=== PATIENT | female | born 1960 | race Caucasian/White ===

== ENCOUNTER 2018-11-15 18:43 | Emergency (ER) | payer OTHER, SELFPAY ==
[2018-09-22 11:01] VITALS: BMI 26.2
[2018-11-15 18:44] VITALS: BP 154/89; PULSE 89; RESP 18; TEMP 36.2; O2SAT 99; BMI 26.7
--- NOTE | 2018-11-15 18:50 | ED.RN ---
RN CALLED FOR EKG, PULLED OLD EKGS FOR
--- NOTE | 2018-11-15 18:57 | EKG12_ITS ---
Test Reason : REPEAT Blood Pressure : / mmHG Vent. Rate : 066 BPM Atrial Rate : 066 BPM P-R Int : 144 ms QRS Dur : 082 ms QT Int : 414 ms P-R-T Axes : 070 086 070 degrees QTc Int : 434 ms Normal sinus rhythm Normal ECG Confirmed by CANDIE SARGENT ([id number]), editorial cartoonist LOU HERRON ([id number]) on 11/19/2018 11:14:49 AM Referred By: SWAPNA Confirmed By:CANDIE SARGENT
--- NOTE | 2018-11-15 19:00 | RAD_ITS ---
STUDY: X-RAY CHEST REASON FOR EXAM: Female, 58 years old. Chest pain TECHNIQUE: Frontal views of the chest COMPARISON: X-Ray Chest every 2016 FINDINGS: The lungs are clear. There are no pleural effusions. There is no pneumothorax. The heart is normal in size. The visualized osseous structures are within normal limits. RAD/Chest 1 View (Portable) IMPRESSION: No acute thoracic pathology. Electronically Signed: Gregory Campos, at 19:56 EDT Tel , Service support ,
[2018-11-15 19:08] VITALS: O2SAT 97
[2018-11-15] MEDS: Aspirin 81 MG TAB.CHEW 324 MG PO (19:08)
[2018-11-15] MEDS: 0.9% Normal Saline 1,000 ML 150 ML IV (19:08)
[2018-11-15 19:21] LABS: Anion Gap 3 (5-15); BUN 14 mg/dL (7-18); BUN/Creat Ratio 8.4 RATIO (10-20); Calcium,Total 8.8 mg/dL (8.5-10.1); Chloride 106 mmol/L (98-107); Creatinine, Serum 1.66 mg/dL (0.55-1.02); EST Glomerular Filtration Rate 34 mL/min (>60); Est Glom Filt Rate - Afr Amer 41 mL/min (>60); Estimated Creatinine Clearance 32.29 ml/min; Glucose 90 mg/dL (74-106); Potassium 4.1 mmol/L (3.5-5.1); Sodium Level 140 mmol/L (136-145)
[2018-11-15 19:37] LABS: Absolute Lymphocyte Count 2.71 X10^3/ul (0.83-4.51); Absolute Neutrophil Count 5.8 X10^3/uL (2.0-7.7); Basophil# 0.02 X10^3/uL; Basophil% 0.2 % (0-1); Eosinophil# 0.17 X10^3/uL; Eosinophils% 1.8 % (0-5); Hematocrit 41.5 % (37-47); Lymphocyte # 2.71 X10^3/ul (4.0); Lymphocyte % 28.4 % (19-41); Mean Corp Hgb Conc 33.7 g/gl (32-36); Mean Corpuscular Hgb 31.2 pg (27.0-32.0); Mean Corpuscular Volume 92.4 fL (81-99); Monocyte# 0.83 X10^3/uL; Monocyte% 8.7 % (0-10); Neutrophil # 5.81 X10^3/uL (2.7-7.7); Neutrophil % 60.8 % (47-70); Platelet Count 270 K/mm3 (150-450); RBC Distribution Width CV 13.3 % (11.6-14.6); RBC Distribution Width SD 44.9 fl (35.1-43.9); Red Blood Count 4.49 M/mm3 (4.2-5.4); White Blood Count 9.6 K/mm3 (4.4-11.0)
[2018-11-15 19:38] LABS: POSITIVE COUNT NO; POSITIVE DIFFERENTIAL NO; POSITIVE MORPHOLOGY NO
[2018-11-15 19:45] LABS: D-Dimer Quantitative (DVT/PE) < 0.27 FEU/ug/m (0.27-0.49)
[2018-11-15 20:09] VITALS: BP 129/72; PULSE 71; RESP 14; O2SAT 96
--- NOTE | 2018-11-15 21:00 | EKG12_ITS ---
Test Reason : CP Blood Pressure : / mmHG Vent. Rate : 086 BPM Atrial Rate : 086 BPM P-R Int : 130 ms QRS Dur : 086 ms QT Int : 368 ms P-R-T Axes : 075 089 072 degrees QTc Int : 440 ms Normal sinus rhythm Normal ECG Confirmed by CANDIE SARGENT ([id number]), features editor LOU HERRON ([id number]) on 11/19/2018 11:15:02 AM Referred By: SWAPNA/JUAQUIN Confirmed By:CANDIE SARGENT
[2018-11-15 21:18] VITALS: BP 131/76; PULSE 63; RESP 16; O2SAT 96
--- NOTE | 2018-11-15 22:44 | ED.VISSUMM ---
- ER Visit Summary Date of Service: 11/15/18 Chief Complaint: Chest pain History of Present Illness: The patient is a 58 F with upper chest pain that started yesterday. She points to the upper sternal area and up into her neck. She describes as a heaviness or squeezing sensation. She does feel slightly short of breath. Past history is significant for COPD, mitral valve prolapse, fibromyalgia, melanoma, reflux disease. Physical Examination: Vital signs significant for blood pressure 154/89, otherwise unremarkable. Patient sitting upright in bed no acute distress. Heart is regular rate and rhythm. Lung sounds are clear. Chest wall is nontender. Abdomen is soft nontender. Lower exam examination was no calf tenderness or edema. Test Results: Portable chest x-ray is unremarkable. EKG is sinus 86 with no acute ischemia. CBC and chemistry studies significant only for a creatinine of 1.66. Last laboratory work available for comparison is from 2 years ago at which time her creatinine was normal. Troponin is less than 0.015. D-dimer is less than 0.27. Emergency Department Course and Treatment: Patient was given aspirin on arrival. On repeat evaluation she is resting comfortably. I recommended hospitalization for cycling of cardiac enzymes and possible stress test. She declines this. She did agree to stay for a 2-hour repeat troponin and EKG. These tests are unremarkable. On repeat evaluation patient is resting comfortably. Test results were discussed with her. She will return immediately if symptoms worsen or any other concerns arise. Treatment Plan: [] Disposition: Discharge Impression: Chest pain Renal insufficiency This note was generated with [employer] dictation software. It may contain incorrect words, spelling, and punctuation that were not noted in review of the chart prior to signing ED Disposition - Plan for ED Patient: Disposition: Home or Assisted Living Instructions: ED Chest Pain Atypical Unkn Cause Referrals: Edyta Nichole DO [Primary Care Provider] - As soon as possible
[2018-11-15 22:57] VITALS: BP 125/70; PULSE 62; RESP 16; O2SAT 96
--- NOTE | 2018-11-15 22:58 | ED.RN ---
REVIEWED D/C INSTRUCTIONS, FOLLOW UP CARE, AND S/S THAT WOULD WARRANT A RETURN TO THE ED WITH PT. PT VERBALIZED AN UNDERSTANDING AND DENIES FURTHER QUESTIONS FOR THIS RN. PT SKIN P/W/D, RESP EVEN AND UNLABORED, PT A&O X 3, NO DISTRESS NOTED. PT AMBULATED OUT OF ED, GAIT STEADY.
== END 2018-11-15 23:00 | disposition home or self-care (01) ==
PROVIDERS: Emergency Provider Emergency Medicine; Family Provider Family Medicine; PCP Family Medicine
DX: R07.9 Chest pain, unspecified (principal); N28.9 Disorder of kidney and ureter, unspecified; J44.9 Chronic obstructive pulmonary disease, unspecified; K21.9 Gastro-esophageal reflux disease without esophagitis; M79.7 Fibromyalgia; Z72.0 Tobacco use; Z85.820 Personal history of malignant melanoma of skin
CPT/HCPCS: 71045; 80048; 84484; 85025; 85379; 93005; 96360; 96361; 99285; J7030; A4216

== ENCOUNTER → 2018-11-25 10:58 | Outpatient (CLI) | payer OTHER, SELFPAY ==
[2018-11-15 18:44] VITALS: BMI 26.7
[2018-11-25 11:03] LABS: Mucous, Urine 0 SEEN /hpf (<or=2+); Red Blood Cells-Urine 0 SEEN /hpf (0-5); White Blood Cells 0 SEEN /hpf (0-5)
[2018-11-25 12:10] LABS: Color, Urine Yellow (Yellow); Glucose, Dipstick Normal (Normal); Ketone-Dipstick 5 mg/dl (Negative); Leukocyte Esterase-Dipstick Negative /ul (Negative); Nitrite-Dipstick Negative (Negative); Occult Blood-Urine Negative /ul (Negative); Protein-Dipstick Negative (Negative); Specific Gravity, Urine 1.005 (1.002-1.030); Urine Bilirubin Dipstick Negative (Negative); Urine Clarity Clear (Clear); Urine Urobilinogen Normal (Normal)
[2018-11-25 12:16] LABS: Bacteria RARE /hpf (None Seen); Squamous Epithelial Cells - UA 0-5 SEEN /hpf (5-10)
[2018-11-25 16:23] LABS: Anion Gap 7 (5-15); BUN 10 mg/dL (7-18); BUN/Creat Ratio 13.5 RATIO (10-20); Calcium,Total 8.8 mg/dL (8.5-10.1); Chloride 106 mmol/L (98-107); Creatinine, Serum 0.74 mg/dL (0.55-1.02); EST Glomerular Filtration Rate 86 mL/min (>60); Est Glom Filt Rate - Afr Amer 104 mL/min (>60); Glucose 75 mg/dL (74-106); Potassium 4.4 mmol/L (3.5-5.1); Sodium Level 140 mmol/L (136-145)
== END ==
PROVIDERS: Family Provider Family Medicine; PCP Family Medicine; Visit Provider Family Medicine
DX: N17.9 Acute kidney failure, unspecified (principal)
CPT/HCPCS: 36415; 80048; 81001; 87086; 87088

== ENCOUNTER → 2018-11-26 06:50 | Outpatient (CLI) | payer OTHER, SELFPAY ==
[2018-09-22 11:01] VITALS: BMI 26.2
[2018-11-15 18:44] VITALS: BMI 26.7
--- NOTE | 2018-11-26 07:36 | CT_ITS ---
STUDY: LOW DOSE CT LUNG CANCER SCREENING REASON FOR EXAM: Female, 58 years old. Screening RADIATION DOSAGE (If Supplied By Facility): CTDIvol = ( 1.70 ) mGy, DLP = ( 64.86 ) mGycm TECHNIQUE: No contrast was administered. Low dose technique was utilized (average mAS-38 and kVp 120). 1.25 mm axial source images with a slice interval of 1.25-mm were reconstructed in lung windows. 2.5 mm axial source images with a slice interval of 2.5-mm were reconstructed in lung windows. 5.0 mm axial source images with a slice interval of 5.0-mm were reconstructed in soft tissue windows. Nodule measured using lung windows on PACS and/or independent workstation with automated measurement of minimum and maximum diameter. Nodule measurement reported as average diameter rounded to the nearest whole number. Growth is defined as an increase ins size of greater than 1.5 mm. COMPARISON: None. NODULES: Total lung nodules (excluding granulomas): 0 Emphysema: Mild Endobronchial lesion: None Aorta: Normal Coronary arteries: Normal Heart: Normal Pulmonary artery: Normal Mediastinal nodes: Normal Other chest and abdominal findings: None CT/Low Dose CT Lung Screening IMPRESSION: No significant pulmonary nodules. LRADS 1. Mild emphysema. IMPORTANT NOTES FOR USE: ACR Lung-RADS Version 1.0 Assessment Categories Release Date: November 07, 2013 Category: Coded 0-4 bases on nodule(s) with highest degree of suspicion. Negative screen is defined as categories 1 and 2; a positive screen is defined as categories 3 and 4. Category 3 and 4A nodules that are unchanged on interval CT should be coded as category 2, and individuals returned to screening in 12 months. Category 4X: Category 3 or 4 nodules with additional imaging findings that increase the suspicion of lung cancer, such as spiculation, GGN that doubles in size in 1 year, enlarged lymph notes, etc. Category Modifiers: S (significant finding unrelated to lung cancer) and C (prior history of treated lung cancer) may be added to the 0-4 Lung-RADS Electronically Signed: Gregory Campos, at 20:55 EDT Tel , Service support ,
--- NOTE | 2018-11-26 09:27 | PFTCOMP ---
COMPLETE PULMONARY FUNCTION TEST INTERPRETATION Brief HPI: Patient is a 58 year old female, currently under the care of myself, who presents to [facility] for complete pulmonary function tests secondary to diagnosis of tobacco abuse. Respiratory therapist reports good effort and reproducible results. Interpretation: Forced expiration spirometry shows a severe large airways obstructive ventilatory defect with an FEV1 of 46% predicted. There is a significant bronchodilator response in FVC and FEV1 by strict ATS criteria. Spirograms are of good quality and plateau slowly, indicating slowly emptying areas of the lungs. The respiratory flow volume loop shows decreased expiratory flow rates at all lung volumes consistent with airway obstruction. Lung volumes by body plethysmography show an elevated total lung capacity at 6.72 L, 137% predicted. FRC and RV are elevated out of proportion. Lung volume measurements are consistent with hyperinflation and air-trapping. Diffusion capacity by carbon monoxide is decreased at 57% predicted. The airway resistance is elevated. Compared to previous pulmonary function tests from 10/21/2016, there is been significant worsening in FEV1 by 26% with resultant air trapping and worsening hyperinflation. Impression: Partially reversible severe large airways obstructive ventilatory defect resulting in air trapping with hyperinflation, and a pattern consistent with COPD/asthma overlap syndrome.
== END ==
PROVIDERS: Family Provider Family Medicine; PCP Family Medicine; Referring Provider Internal Medicine Critical Care Medicine; Visit Provider Internal Medicine Critical Care Medicine
DX: Z12.2 Encounter for screening for malignant neoplasm of respiratory organs (principal); J44.9 Chronic obstructive pulmonary disease, unspecified
CPT/HCPCS: 94060; 94726; 94729; G0297

== ENCOUNTER → 2019-01-03 09:45 | Outpatient (CLI) | payer OTHER, SELFPAY ==
[2018-12-30 09:39] VITALS: BMI 27.1
[2019-01-05 18:09] LABS: HPV Reflexed? NOT INDICATED
== END ==
PROVIDERS: Family Provider Family Medicine; PCP Family Medicine; Visit Provider Family Medicine
DX: Z12.4 Encounter for screening for malignant neoplasm of cervix (principal); Z01.419 Encounter for gynecological examination (general) (routine) without abnormal findings
CPT/HCPCS: 88175; G0145

== ENCOUNTER → 2019-01-22 08:33 | Outpatient (CLI) | payer OTHER, SELFPAY ==
[2018-12-30 09:39] VITALS: BMI 27.1
--- NOTE | 2019-01-22 08:35 | BI_ITS ---
MAMMOGRAPHY - BILATERAL SCREENING REASON FOR EXAM: Female, 58 years old. Routine annual screening examination. PERTINENT HISTORY: Aunt with breast cancer. TECHNIQUE: Digital bilateral breast trever (3D mammographic acquisition) in the CC and MLO projections. 2-D mediolateral oblique (MLO) and craniocaudad (CC) views of both breasts were obtained. CAD: Full Field Digital Mammography with Computer Added Detection was performed. COMPARISON: Comparison is made with prior study dated July 01, 2016 and May 10, 2013. FINDINGS: Breast Composition: The breasts are heterogeneously dense, which may obscure small masses. There are no dominant masses or suspicious calcifications. No other significant abnormalities are identified. There has been no significant change since the prior study. BI/SCREEN MAMM (CAD) W/TREVER BILAT IMPRESSION: Stable bilateral screening mammogram. Yearly follow-up mammogram recommended. (A) ASSESSMENT CATEGORY: BIRADS Category 1: Negative. A letter regarding these results will be sent to the patient by the facility within 30 days. Approximately 10% of breast cancers are not detected by mammography. A normal mammogram should not delay biopsy of a clinically suspicious abnormality. [id number] Electronically Signed: Gabe Haddad, at 8:42 EDT , Service support ,
== END ==
PROVIDERS: Family Provider Family Medicine; PCP Family Medicine; Referring Provider Family Medicine; Visit Provider Family Medicine
DX: Z12.31 Encounter for screening mammogram for malignant neoplasm of breast (principal)
CPT/HCPCS: 77063; 77067

== ENCOUNTER → 2020-01-30 07:36 | Outpatient (CLI) | payer OTHER, SELFPAY ==
[2019-10-19 09:26] VITALS: BMI 27.1
--- NOTE | 2020-01-30 07:37 | CT_ITS ---
STUDY: LOW DOSE CT LUNG CANCER SCREENING REASON FOR EXAM: Female, 59 years old. PT STATED 30 YR SMOKER X 1PPD RADIATION DOSAGE (If Supplied By Facility): CTDIvol = ( 2.55 ) mGy, DLP = ( 87.74 ) mGycm TECHNIQUE: No contrast was administered. Low dose technique was utilized (average mAS-38 and kVp 120). 1.25 mm axial source images with a slice interval of 1.25-mm were reconstructed in lung windows. 2.5 mm axial source images with a slice interval of 2.5-mm were reconstructed in lung windows. 5.0 mm axial source images with a slice interval of 5.0-mm were reconstructed in soft tissue windows. Nodule measured using lung windows on PACS and/or independent workstation with automated measurement of minimum and maximum diameter. Nodule measurement reported as average diameter rounded to the nearest whole number. Growth is defined as an increase ins size of greater than 1.5 mm. COMPARISON: 11/26/2018 NODULES: Total lung nodules (excluding granulomas): 0 Emphysema: Mild Endobronchial lesion: None Aorta: Normal Coronary arteries: Normal Heart: Normal Pulmonary artery: Normal Mediastinal nodes: Normal Other chest and abdominal findings: None CT/Low Dose CT Lung Screening IMPRESSION: Lung-RADS category 1 - Continue annual screening with LDCT in 12 months. Mild emphysema No significant interval change IMPORTANT NOTES FOR USE: ACR Lung-RADS Version 1.0 Assessment Categories Release Date: November 07, 2013 Category: Coded 0-4 bases on nodule(s) with highest degree of suspicion. Negative screen is defined as categories 1 and 2; a positive screen is defined as categories 3 and 4. Category 3 and 4A nodules that are unchanged on interval CT should be coded as category 2, and individuals returned to screening in 12 months. Category 4X: Category 3 or 4 nodules with additional imaging findings that increase the suspicion of lung cancer, such as spiculation, GGN that doubles in size in 1 year, enlarged lymph notes, etc. Category Modifiers: S (significant finding unrelated to lung cancer) and C (prior history of treated lung cancer) may be added to the 0-4 Lung-RADS Electronically Signed: Aly Moore MD at 8:13 EDT , Service support ,
== END ==
PROVIDERS: PCP Family Medicine; Referring Provider Nurse Practitioner Acute Care; Visit Provider Nurse Practitioner Acute Care
DX: Z12.2 Encounter for screening for malignant neoplasm of respiratory organs (principal); F17.200 Nicotine dependence, unspecified, uncomplicated
CPT/HCPCS: G0297

== ENCOUNTER → 2020-02-15 07:16 | Outpatient (CLI) | payer OTHER, SELFPAY ==
[2019-10-19 09:26] VITALS: BMI 27.1
--- NOTE | 2020-02-15 07:18 | BI_ITS ---
MAMMOGRAPHY - BILATERAL SCREENING REASON FOR EXAM: Female, 59 years old. Routine annual screening examination. PERTINENT HISTORY: Aunt with breast cancer. TECHNIQUE: Digital bilateral breast trever (3D mammographic acquisition) in the CC and MLO projections. 2-D mediolateral oblique (MLO) and craniocaudad (CC) views of both breasts were obtained. CAD: Full Field Digital Mammography with Computer Added Detection was performed. COMPARISON: Comparison is made with prior study dated 01/22/2019 and 07/09/2016. FINDINGS: Breast Composition: The breasts are heterogeneously dense, which may obscure small masses. There are no dominant masses or suspicious calcifications. No other significant abnormalities are identified. There has been no significant change since the prior study. BI/SCREEN MAMM (CAD) W/TREVER BILAT IMPRESSION: Stable bilateral screening mammogram. Yearly follow-up mammogram recommended. (A) ASSESSMENT CATEGORY: BIRADS Category 1: Negative. A letter regarding these results will be sent to the patient by the facility within 30 days. Approximately 10% of breast cancers are not detected by mammography. A normal mammogram should not delay biopsy of a clinically suspicious abnormality. [id number] Electronically Signed: Gabe Haddad, at 8:52 EDT , Service support ,
== END ==
PROVIDERS: PCP Family Medicine; Referring Provider Family Medicine; Visit Provider Family Medicine
DX: Z12.31 Encounter for screening mammogram for malignant neoplasm of breast (principal); Z80.3 Family history of malignant neoplasm of breast
CPT/HCPCS: 77063; 77067

== ENCOUNTER → 2020-03-01 10:46 | Outpatient (CLI) | payer OTHER, SELFPAY ==
[2019-10-19 09:26] VITALS: BMI 27.1
[2020-03-01 13:17] LABS: Free T3 3.3 pg/mL (2.18-3.98); T4 Free Direct 1.02 ng/dL (0.76-1.46); Thyroid Stim Hormone (TSH) 2.39 uIU/mL (0.358-3.74)
== END ==
PROVIDERS: PCP Family Medicine; Visit Provider Family Medicine
DX: E01.0 Iodine-deficiency related diffuse (endemic) goiter (principal)
CPT/HCPCS: 36415; 84439; 84443; 84481

== ENCOUNTER → 2021-05-13 17:23 | Outpatient (CLI) | payer OTHER, SELFPAY ==
--- NOTE | 2021-05-13 17:27 | CT_ITS ---
STUDY: LOW DOSE CT LUNG CANCER SCREENING REASON FOR EXAM: Female, 61 years old. Smoker. Greater than 30 pack-year history. COPD as well as emphysema. RADIATION DOSAGE (If Supplied By Facility): CTDIvol = ( 2.01 ) mGy, DLP = ( 72.23 ) mGycm TECHNIQUE: No contrast was administered. Low dose technique was utilized (average mAS-38 and kVp 120). 1.25 mm axial source images with a slice interval of 1.25-mm were reconstructed in lung windows. 2.5 mm axial source images with a slice interval of 2.5-mm were reconstructed in lung windows. 5.0 mm axial source images with a slice interval of 5.0-mm were reconstructed in soft tissue windows. Nodule measured using lung windows on PACS and/or independent workstation with automated measurement of minimum and maximum diameter. Nodule measurement reported as average diameter rounded to the nearest whole number. Growth is defined as an increase ins size of greater than 1.5 mm. COMPARISON: 01/30/2020 NODULES: Total lung nodules (excluding granulomas): 0 Emphysema: Yes Endobronchial lesion: No Aorta: Normal Coronary arteries: Normal Heart: Normal in size Pulmonary artery: Normal Mediastinal nodes: Nonspecific subcentimeter mediastinal lymphadenopathy. There is no major interval change. Other chest and abdominal findings: CT/Low Dose CT Lung Screening IMPRESSION: Lung-RADS category 1 - Continue annual screening with LDCT in 12 months. IMPORTANT NOTES FOR USE: ACR Lung-RADS Version 1.1 Assessment Categories Release Date: 2018 Category: Coded 0-4 bases on nodule(s) with highest degree of suspicion. Negative screen is defined as categories 1 and 2; a positive screen is defined as categories 3 and 4. Category 3 and 4A nodules that are unchanged on interval CT should be coded as category 2, and individuals returned to screening in 12 months. Category 4X: Category 3 or 4 nodules with additional imaging findings that increase the suspicion of lung cancer, such as spiculation, GGN that doubles in size in 1 year, enlarged lymph notes, etc. Category Modifiers: S (significant finding unrelated to lung cancer) Electronically Signed: Cullen Bajwa DO at 23:51 EDT Tel [phone], Service support ,
== END ==
PROVIDERS: PCP Family Medicine; Visit Provider Internal Medicine Critical Care Medicine
DX: Z12.2 Encounter for screening for malignant neoplasm of respiratory organs (principal); F17.200 Nicotine dependence, unspecified, uncomplicated
CPT/HCPCS: 71271

== ENCOUNTER → 2022-05-14 | Outpatient (CLI) | payer OTHER, SELFPAY ==
--- NOTE | 2022-05-14 12:50 | CT_ITS ---
STUDY: LOW DOSE CT LUNG CANCER SCREENING REASON FOR EXAM: Female, 62 years old. smoker and gt; 30 pack years RADIATION DOSAGE (If Supplied By Facility): CTDIvol = ( 2.01 ) mGy, DLP = ( 71.98 ) mGycm TECHNIQUE: No contrast was administered. Low dose technique was utilized (average mAS-38 and kVp 120). 1.25 mm axial source images with a slice interval of 1.25-mm were reconstructed in lung windows. 2.5 mm axial source images with a slice interval of 2.5-mm were reconstructed in lung windows. 5.0 mm axial source images with a slice interval of 5.0-mm were reconstructed in soft tissue windows. COMPARISON: 05/13/2021 NODULES: Total lung nodules (excluding granulomas): 0 Emphysema: Mild centrilobular emphysema Endobronchial lesion: None Aorta: Normal caliber CORONARY ARTERIES: Coronary artery calcification is seen. Heart: Normal size Pulmonary artery: Unremarkable for unopacified technique. Mediastinal nodes: No adenopathy Other chest and abdominal findings: None significant CT/Low Dose CT Lung Screening IMPRESSION: Lung-RADS category 1 - Continue annual screening with LDCT in 12 months. IMPORTANT NOTES FOR USE: ACR Lung-RADS Version 1.1 Assessment Categories Release Date: 2018 Category: Coded 0-4 bases on nodule(s) with highest degree of suspicion. Negative screen is defined as categories 1 and 2; a positive screen is defined as categories 3 and 4. Category 3 and 4A nodules that are unchanged on interval CT should be coded as category 2, and individuals returned to screening in 12 months. Category 4X: Category 3 or 4 nodules with additional imaging findings that increase the suspicion of lung cancer, such as spiculation, GGN that doubles in size in 1 year, enlarged lymph notes, etc. Category Modifiers: S (significant finding unrelated to lung cancer) Electronically Signed: Naveen Wang (Brooks), at 15:34 EDT Reading Location ID and State: [facility] / [place] , Service support ,
== END | disposition home or self-care (01) ==
LOC: CT 12:49
PROVIDERS: PCP Family Medicine; Referring Provider Nurse Practitioner Acute Care; Visit Provider Nurse Practitioner Acute Care
DX: Z12.2 Encounter for screening for malignant neoplasm of respiratory organs (principal); F17.210 Nicotine dependence, cigarettes, uncomplicated
CPT/HCPCS: 71271

== ENCOUNTER → 2022-07-23 | Outpatient (CLI) | payer OTHER, SELFPAY ==
[2022-07-23 12:47] VITALS: PULSE 75; PULSE 77; PULSE 81; PULSE 86; PULSE 95; PULSE 96; PULSE 97; O2SAT 90; O2SAT 91; O2SAT 92; O2SAT 95; O2SAT 96; O2SAT 98
--- NOTE | 2022-07-24 13:39 | WT_ITS ---
PSN 6 Minute Walk Test 6 Minute Walk Test 6 Minute Walk Test: 6 Minute Walk Test PSN:6-Minute Walk Test Start: 07/23/22 12:47 Freq: Status: Active Protocol: [id number] Document 07/23/22 12:47 RODRIGUEZ (Rec: 07/23/22 12:49 RODRIGUEZ [id number]) 6 Minute Walk Test Date Performed 07/23/22 Time Performed 12:30 Height 5 ft 4 in Weight: 155 lb Weight in Pounds 155.[address]: Carol Casillas POSITION CLASSIFICATION SPECIALIST Assistive device used: None Pre-test Oxygen Delivery Method Room Air Pulse Ox (%) 96 Pulse Rate (60-100 beats/min) 75 Dyspnea Helga Scale (0-10) 2 Exertion Helga Scale (6-20) 6 1st minute Oxygen Delivery Method Room Air Pulse Ox (%) 95 Pulse Rate (60-100 beats/min) 81 2nd minute Oxygen Delivery Method Room Air Pulse Ox (%) 92 Pulse Rate (60-100 beats/min) 86 3rd minute Oxygen Delivery Method Room Air Pulse Ox (%) 92 Pulse Rate (60-100 beats/min) 97 4th minute Oxygen Delivery Method Room Air Pulse Ox (%) 90 Pulse Rate (60-100 beats/min) 96 5th minute Oxygen Delivery Method Room Air Pulse Ox (%) 91 Pulse Rate (60-100 beats/min) 95 6th minute Oxygen Delivery Method Room Air Pulse Ox (%) 92 Pulse Rate (60-100 beats/min) 96 Dyspnea Helga Scale (0-10) 4 Exertion Helga Scale (6-20) 13 Post-test Oxygen Delivery Method Room Air Pulse Ox (%) 98 Pulse Rate (60-100 beats/min) 77 Full Laps Walked 20 Partial Lap, Number of Tiles Walked 12 Total Distance Walked (ft) 1192 Interpretation Interpretation: The patient ambulated 1192 feet over the course of 6 minutes beginning on room air without assistive devices. Pretesting oxygen saturation was noted to be 96% on room air. With ambulation, the ata oxygen saturation was 90%. This represents a significant exertional oxygen desaturation. Recommendations Recommendations: There is no indication for the use of supplemental oxygen at this time. However, close interval follow-up is recommended, given the degree of oxygen desaturation noted during this study.
== END | disposition home or self-care (01) ==
LOC: PSN 12:08
PROVIDERS: PCP Family Medicine; Visit Provider Nurse Practitioner Acute Care
DX: J44.9 Chronic obstructive pulmonary disease, unspecified (principal)
CPT/HCPCS: 94618

== ENCOUNTER → 2022-08-19 | Outpatient (CLI) | payer OTHER, SELFPAY ==
--- NOTE | 2022-08-21 10:04 | PFT ---
INTRODUCTION: The patient is a 62-year-old female that presents for pulmonary function studies secondary to a diagnosis of COPD. Respiratory therapy reported good patient effort. Bronchodilators were used during testing. INTERPRETATION: Forced expiration spirometry demonstrates the presence of a severe large airways obstructive ventilatory defect. There was a significant response to aerosolized bronchodilators. Spirograms are of good quality but do not plateau indicating slow in Valentine of the lungs. Body plethysmography was performed and revealed an elevated RV to 206% of predicted, indicative of underlying air trapping. Diffusing capacity by single breath CO is within normal limits. IMPRESSION: Partially reversible severe large airways obstructive ventilatory defect with associated air trapping.
== END | disposition home or self-care (01) ==
LOC: PSN 06:48
PROVIDERS: PCP Family Medicine; Visit Provider Nurse Practitioner Acute Care
DX: J44.9 Chronic obstructive pulmonary disease, unspecified (principal)
CPT/HCPCS: 94060; 94726; 94729

== ENCOUNTER → 2022-09-30 | Outpatient (CLI) | payer OTHER, SELFPAY ==
[2022-09-30 11:46] LABS: Base Excess 4 mmol/L (-2 to +2); Bicarbonate 28.1 mmol/L (22-26); Blood Gas Specimen Type ART; O2 Delivery Device Room Air; PO2 71 mmHG (75-100); SITE R Brach; SO2 95 % (95-99); Total Carbon Dioxide 29 mmol/L; pCO2 41.9 mmHg (35-45); pH 7.43 (7.35-7.45)
== END | disposition home or self-care (01) ==
LOC: PSN 09:06
PROVIDERS: PCP Family Medicine; Referring Provider Internal Medicine Critical Care Medicine; Visit Provider Internal Medicine Critical Care Medicine
DX: J44.9 Chronic obstructive pulmonary disease, unspecified (principal)
CPT/HCPCS: 36600; 82803

== ENCOUNTER → 2022-11-05 | Outpatient (CLI) | payer OTHER, SELFPAY ==
--- NOTE | 2022-11-05 09:15 | MRI_ITS ---
HISTORY: Right lumbar radiculopathy. Right hip and leg pain x 8 months. TECHNIQUE: Multiplanar and multisequence MR images of the lumbar spine were obtained without intravenous contrast. 103 images. COMPARISON: None. FINDINGS: VERTEBRAE: Vertebral body heights maintained. Mild degenerative bone marrow endplate changes. ALIGNMENT: No anterior or posterior subluxation. CONUS: Normal morphology and position of the conus medullaris at T12-L1. INTERVERTEBRAL DISCS: T12-L1: No significant posterior disc protrusion, central canal stenosis, or foraminal narrowing based on the sagittal images. L1-2: No significant posterior disc protrusion, central canal stenosis, or foraminal narrowing. L2-3: Mild disc bulge, small osteophytes, and facet arthropathy resulting in mild central canal stenosis and left foraminal narrowing. L3-4: Mild disc bulge with facet arthropathy resulting in minimal narrowing of the thecal sac and mild left foraminal narrowing. L4-5: Posterior disc protrusion abutting the bilateral L5 nerve roots with facet arthropathy resulting in minimal narrowing of the thecal sac and moderate bilateral foraminal narrowing. L5-S1: Rudimentary disc and transitional lumbosacral anatomy of L5. Degenerative change with mild right foraminal narrowing. SOFT TISSUES: No paraspinal fluid collection. MRI/Spine Lumbar (Routine) IMPRESSION: Mild degenerative disc disease of the lumbar spine as above. Electronically Signed: Valerie Tucker MD at 9:38 EDT ,
== END | disposition home or self-care (01) ==
PROVIDERS: PCP Family Medicine; Referring Provider Family Medicine; Visit Provider Family Medicine
DX: M54.17 Radiculopathy, lumbosacral region (principal)
CPT/HCPCS: 72148

== ENCOUNTER → 2022-12-16 | Outpatient (CLI) | payer OTHER, SELFPAY ==
--- NOTE | 2022-12-16 09:44 | ECHOD_ITS ---
Reason For Study: SOB Procedure This was a 2D Doppler, Color Flow transthoracic echocardiogram. The study was technically difficult. Exam performed in department. Left Ventricle Normal LV size. Left ventricular systolic function is normal. The estimated ejection fraction is 55 %. Stage 1 diastolic dysfunction. No regional wall motion abnormalities noted. Right Ventricle Normal RV size. Normal systolic function. Atria Normal left atrium. Normal right atrium. Mitral Valve Systolic anterior motion of the mitral valve. Tricuspid Valve Normal tricuspid valve. Mild tricuspid valve insufficiency. Pulmonary artery systolic pressure is 28 mmHg. Aortic Valve Normal aortic valve. Pulmonic Valve Normal pulmonic valve. Great Vessels Normal aortic root. The pulmonary artery is normal size. Normal inferior vena cava. Pericardium/Pleural No pericardial effusion. MMode/2D Measurements & Calculations LVIDd: 4.5 cm IVSd: 0.74 cm LA dimension: 2.9 cm LVIDs: 3.0 cm LVPWd: 0.82 cm RVDd: 2.9 cm FS: 32.9 % LAV(MOD-bp): 21.8 ml LVAd ap4: 24.7 cm2 SV(MOD-sp4): 43.5 ml LAV(MOD-bp) Indexed: 12.5 ml/m2 LVLd ap4: 7.5 cm LAV(MOD-sp2): 26.3 ml EDV(MOD-sp4): 65.7 ml LAV(MOD-sp4): 18.1 ml EDV(sp4-el): 68.5 ml LVAs ap4: 13.2 cm2 LVLs ap4: 6.4 cm ESV(MOD-sp4): 22.2 ml ESV(sp4-el): 23.0 ml EF(MOD-sp4): 66.3 % EF(sp4-el): 66.4 % SV(sp4-el): 45.4 ml LA A4 area: 9.9 cm2 RA A4 area: 11.3 cm2 Time Measurements MV dec time: 0.26 sec Doppler Measurements & Calculations MV E max demetrius: 73.8 cm/sec Lat Peak E' Demetrius: 10.8 cm/sec Med Peak E' Demetrius: 12.3 cm/sec MV A max demetrius: 80.1 cm/sec E/E' lat: 6.9 E/E' med: 6.0 MV E/A: 0.92 MV V2 max: 84.9 cm/sec MV P1/2t max demetrius: 81.1 cm/sec Ao V2 max: 116.2 cm/sec MV max P.9 mmHg MV P1/2t: 87.4 msec Ao max P.4 mmHg MV V2 mean: 48.9 cm/sec Ao V2 mean: 79.2 cm/sec MV mean P.1 mmHg MV dec slope: 271.9 cm/sec2 Ao mean P.9 mmHg MV V2 VTI: 34.9 cm MVA(P1/2t): 2.5 cm2 Ao V2 VTI: 27.6 cm AV (velocity ratio): 0.82 LV V1 max: 90.4 cm/sec PA V2 max: 71.5 cm/sec TR max demetrius: 242.7 cm/sec LV V1 max P.3 mmHg PA V2 mean: 53.0 cm/sec TR max P.6 mmHg LV V1 mean P.9 mmHg LV V1 mean: 65.7 cm/sec LV V1 VTI: 22.6 cm ECHO/Echo Complete Interpretation Summary Normal LV size. Left ventricular systolic function is normal. The estimated ejection fraction is 55 %. Stage 1 diastolic dysfunction. Systolic anterior motion of the mitral valve. Ordering Physician: Washington Rojas Referring Physician: Edyta Nichole Performed By: Christ Spangler RCS
== END | disposition home or self-care (01) ==
LOC: CVS 09:43
PROVIDERS: PCP Family Medicine; Referring Provider Internal Medicine Cardiovascular Disease; Visit Provider Internal Medicine Cardiovascular Disease
DX: R06.02 Shortness of breath (principal)
CPT/HCPCS: 93306

== ENCOUNTER → 2022-12-19 | Outpatient (CLI) | payer OTHER, SELFPAY ==
--- NOTE | 2022-12-19 09:40 | STE_ITS ---
Reason For Study: Dyspnea Stress Results Protocol: Stress Echocardiogram-Leighton Protocol Maximum Predicted HR: 159 bpm Target HR: 135 bpm % Maximum Predicted HR: 86 % DurationHeart Rate Stage (mm:ss) (bpm) BP Comment Baseline 67 130/74Pt denies chest pain Stage 1 3:00 114 128/70Mild shortness of breath, denies chest pain. Stage 2 3:00 123 156/86moderate shortness of breath, denies chest pain Stage 3 0:20 136 / Severe shortness of breath, anxious, denies chest pain Recovery 86 148/74Pt denies chest pain, shortness of breath resolved. Stress Duration: 6:20 mm:ss Maximum Stress HR: 136 bpm Baseline Echocardiogram Findings Stress Echo Wall motion Data Resting WM Intermediate WM Stress WM Time Measurements MV dec time: 0.25 sec Doppler Measurements & Calculations MV E max demetrius: 92.6 cm/sec Lat Peak E' Demetrius: 13.3 cm/sec Med Peak E' Demetrius: 10.8 cm/sec MV A max demetrius: 91.5 cm/sec E/E' lat: 7.0 E/E' med: 8.5 MV E/A: 1.0 MV dec slope: 308.5 cm/sec2 TR max demetrius: 273.7 cm/sec TR max P.0 mmHg ECHO/Stress Test Echo w/o Contrast Interpretation Summary exercise stress echocardiogram. 62-year-old lady with a history of dyspnea on exertion. Stress protocol: Resting EKG demonstrates sinus rhythm with a rate of 68 bpm normal intervals ar e noted resting blood pressure is 130/74 mmHg. The patient exercised according to the regular Leighton p rotocol for total duration of 6 minutes and 19 seconds. The maximum heart rate attained was 137 b pm which was 86% of maximum predicted heart rate the maximum workload was 7.9 metabolic equivalents . Patient maintained sinus rhythm throughout the recording. At rest and during exercise no EKG li es were noted with noted ischemia. The patient did complain of significant shortness of breath. Th e peak blood pressure was 156/86 mmHg. Stress echocardiographic images. Resting echocardiogram demonstrated reduced left ventricular systolic function with hypokinesis of the mid inferior wall. At peak exercise there was improvement of the anterior w all with mild hypokinesis noted of the apex in the mid and basal inferior wall appeared to wo rsen. The global ejection fraction went from 45% to 50%. The above is suggestive of multi territ ory ischemia. The resting pulm artery systolic pressure was estimated to be 30 mmHg and mitzi to 6 0 mmHg with exercise. Conclusion: Abnormal exercise stress echocardiogram. With evidence of apical ischemia and m id and basal inferior wall ischemia. Ordering Physician: Washington Rojas Referring Physician: Washington Rojsa Performed By: RICKIE
== END | disposition home or self-care (01) ==
PROVIDERS: PCP Family Medicine; Referring Provider Internal Medicine Cardiovascular Disease; Visit Provider Internal Medicine Cardiovascular Disease
DX: R06.02 Shortness of breath (principal)
CPT/HCPCS: 93017; 93350

== ENCOUNTER 2023-01-02 06:41 | Day surgery (SDC) | payer OTHER, SELFPAY ==
--- NOTE | 2022-12-26 10:45 | PCM.HP.BLA ---
History and Physical Date of Admission: 01/02/23 This is a 62 year-old lady who presents to the cardiac pathology lab technician today for a cardiac catheterization following an abnormal stress echocardiogram. She has had no previous cardiac history but a history of obstructive lung disease who says that Once upon a time she was diagnosed with mitral valve prolapse.? She has had some exacerbation of her pulmonary condition and was sent to cardiology for further evaluation and management.? She denies any chest pain suggestive of angina but she occasionally gets short of breath with exertion described as a tightness.? She also has some palpitations with anxiety and has been short of breath for many years.? She is not on blood pressure medication but her blood pressures have been well controlled.? She denies any dizziness or diaphoresis near syncope or syncope.? Intake Vital Signs See EMR Allergies SEE EMR Medications See EMR [facility] Medical History? Cervical radiculopathy COPD (chronic obstructive pulmonary disease) Fibromyalgia GERD (gastroesophageal reflux disease) Melanoma Mitral valve prolapse Osteopenia Right sided sciatica Stage 2 moderate COPD by GOLD classification Tobacco abuse Variant angina Vitamin D deficiency Surgical History? C1 C2 fusion H/O dilation and curettage left arm melanoma removed melanoma removal from right shoulder blade Family History Father?? CVA (cerebral vascular accident) Hypertension Kidney diseaseMother Arrhythmia DementiaSister Thyroid disorder Lung cancer HypertensionAunt Breast cancerAunt Bladder cancerBrother Hypertension Social History Smoking Status:? Current every day smoker alcohol intake:? current ROS Const Const: Negative for fatigue, weakness, headache(s), frequent falls, difficulty sleeping or excessive sweating Eyes Eyes: Negative for loss of peripheral vision, transient loss of vision, blurry vision, double vision or tunnel vision ENT ENT: Negative for headache(s), dizziness, Nosebleed/epistaxis or balance problems Cardio Chest Pain: Yes Character: tightness Palpitations: Yes Edema: None Muscle aches with walking: None Resp Respiratory: Positive for SOB with activity; Negative for SOB at rest, SOB orthopnea\SOB lying down, Cough or paroxysmal nocturnal dyspnea GI GI: Negative nausea, vomiting or heartburn : Negative for hematuria Musc Musc: Negative for muscle aches/ myalgia, muscle weakness, joint pain or balance problems Skin Skin: Negative non-healing lesions, rash or unusual bruising Neuro Neuro: Negative for dizziness, lightheadedness, near syncope, syncope, orthostatic symptoms, frequent falls, headache(s), weakness, confusion, memory loss, blurry vision, double vision, vertigo or lack of coordination Jermaine Hematologic/Lymphatic: Negative for easy bleeding or easy bruising Endo Endo: Negative for fatigue, excessive sweating, flushing or increased thirst/drinking Psych Psych: Negative for anxiety or depression Allergy Allergy/Immunology: Negative for hives and Negative for rash Cardiology Exam Const Appearance: cooperative, healthy appearing, no acute distress, well developed and well groomed Nutritional Appearance: average body habitus and well nourished Orientation: alert, awake and oriented x3 Head Head: normal to inspection, normocephalic and atraumatic Ears: hearing grossly normal bilaterally and external ears normal Nose: external nose normal, nares normal, nasal mucous membranes and turbinates normal, septum normal and no nasal discharge Face and Sinus: face symmetric Mouth: oral mucosae normal, tongue normal, oropharynx normal and moist mucous membranes Teeth and gingiva: dentition normal Throat: posterior oropharynx normal, tonsils normal and uvula midline Eyes General: appearance normal, both eyes and all related structures Eyelids: eyelids normal Conjunctivae: conjunctivae normal Pupils: PERRL, normal by confrontation and accommodation normal EOM: EOM intact bilaterally Neck Neck: normal visual inspection, trachea midline and no JVD JVD: +5 Carotids: normal carotid upstroke and bounding pulses Chest Chest inspection: normal inspection of the chest, symmetric chest movement and normal respiratory effort Auscultation: Bilateral: Clear to Auscultation Cardio Palpation: normal PMI Rate: regular rate Rhythm: regular rhythm Heart sounds: S1 normal, S2 normal and normal, physiologic split S2; Negative rub, gallop or murmur GI GI: normal to inspection, soft, no hepatosplenomegaly and bowel sounds present Neuro General: patient alert, patient awake, patient oriented x3, gait normal, moves all extremities and no focal sensory deficit Skin Skin: no rashes or lesions noted Extremities Pulses: Normal: Right Femoral Pulse, Left Femoral Pulse, Right Dorsalis Pedis Pulse, Left Dorsalis Pedis Pulse, Right Posterior Tibial Pulse, Left Posterior Tibial Pulse, Right Radial Pulse and Left Radial Pulse Lower Extremity Edema: None: Bilateral Musculoskel Musculoskeletal: No joint tenderness Psych Psychological: normal affect Supplemental Info Supplemental Information Stress Echocardiogram 12/19/2022: Interpretation Summary exercise stress echocardiogram. ? 62-year-old lady with a history of dyspnea on exertion. ? Stress protocol: Resting EKG demonstrates sinus rhythm with a rate of 68 bpm normal intervals are noted resting blood pressure is 130/74 mmHg. The patient exercised according to the regular Leighton protocol for total duration of 6 minutes and 19 seconds. The maximum heart rate attained was 137 bpm which was 86% of maximum predicted heart rate the maximum workload was 7.9 metabolic equivalents. Patient maintained sinus rhythm throughout the recording. At rest and during exercise no EKG changes were noted with noted ischemia. The patient did complain of significant shortness of breath. The peak blood pressure was 156/86 mmHg. ? Stress echocardiographic images. Resting echocardiogram demonstrated reduced left ventricular systolic function with hypokinesis of the mid inferior wall. At peak exercise there was improvement of the anterior wall with mild hypokinesis noted of the apex in the mid and basal inferior wall appeared to worsen. The global ejection fraction went from 45% to 50%. The above is suggestive of multi territory ischemia. The resting pulm artery systolic pressure was estimated to be 30 mmHg and mitzi to 60 mmHg with exercise. ? Conclusion: Abnormal exercise stress echocardiogram. With evidence of apical ischemia and mid and basal inferior wall ischemia. Echocardiogram 12/16/2022: Interpretation Summary Normal LV size. Left ventricular systolic function is normal. The estimated ejection fraction is 55 %. Stage 1 diastolic dysfunction. Systolic anterior motion of the mitral valve. Pharmacologic Nuclear Stress Test 01/17/16 Conclusion: 1. Normal pharmacologic myocardial perfusion stress test. 2. Preserved ejection fraction. Pulmonary Function Test 08/19/22 Impression: Partially reversible severe large airways obstructive ventilatory defect with associated air trapping. Assessment and Plan Assessment and Plan (1) Shortness of breath: ?Status:?Acute ?Plan: She does present with shortness of breath which could be an anginal equivalent.? Her stress echocardiogram from 12/19/2022 was abnormal. She will proceed with a cardia catheterization to further assess this. (2) Abnormal stress test: Patient's stress echocardiogram from 12/19/2022 demonstrated an abnormal exercise stress echocardiogram. With evidence of apical ischemia and mid and basal inferior wall ischemia. She will proceed with a cardiac catheterization to further assess this. Depending on results, further recommendations will be made.
--- NOTE | 2022-12-30 08:25 | RAD_ITS ---
INDICATION: Abnormal stress. Cath scheduled for 01/02/2023 EXAMINATION/TECHNIQUE: X-RAY - XR Chest 2 Views COMPARISON: FINDINGS: LINES/DEVICES: None. LUNGS: No consolidation, edema or effusion. No pneumothorax. MEDIASTINUM AND CARDIOVASCULAR STRUCTURES: Cardiac silhouette not enlarged. Central airways and mediastinal contour are unremarkable. BONES AND SOFT TISSUES: Unremarkable. RAD/Chest PA and Lateral IMPRESSION: No radiographic evidence of acute cardiopulmonary disease. Electronically Signed: Rocky Shahid, at 18:00 EDT ,
[2022-12-30 10:37] LABS: Absolute Neutrophil Count 4.1 X10^3/uL (2.0-7.7); Basophil# 0.05 X10^3/uL; Basophil% 0.8 % (0-1); Eosinophil# 0.12 X10^3/uL; Eosinophils% 1.9 % (0-5); Hematocrit 45.2 % (37-47); Hemoglobin 14.9 g/dL (12.0-15.0); Lymphocyte % 22.2 % (19-41); Mean Corpuscular Hgb 30.6 pg (27.0-32.0); Mean Corpuscular Volume 92.8 fL (81-99); Mean Platelet Vol. 9.2 fl (6.2-12.0); Monocyte# 0.66 X10^3/uL; Monocyte% 10.5 % (0-10); NRBC Flagged by Analyzer 0 % (0-5); Neutrophil # 4.06 X10^3/uL (2.7-7.7); Neutrophil % 64.3 % (47-70); Platelet Count 278 K/mm3 (150-450); RBC Distribution Width CV 13.3 % (11.6-14.6); RBC Distribution Width SD 45.3 fl (35.1-43.9); Red Blood Count 4.87 M/mm3 (4.2-5.4); White Blood Count 6.3 K/mm3 (4.4-11.0)
[2022-12-30 10:42] LABS: Anion Gap 4 (5-15); BUN 13 mg/dL (7-18); BUN/Creat Ratio 21.6 RATIO (10-20); Calcium,Total 8.7 mg/dL (8.5-10.1); Chloride 106 mmol/L (98-107); EST Glomerular Filtration Rate 107 mL/min (>60); Est Glom Filt Rate - Afr Amer 130 mL/min (>60); Glucose 88 mg/dL (74-106); Potassium 4.3 mmol/L (3.5-5.1); Sodium Level 140 mmol/L (136-145)
[2022-12-30 11:15] LABS: Prothrombin Time (Protime)PT. 12.8 SECONDS (11.7-14.9)
[2023-01-01 08:13] VITALS: BMI 26.4
--- NOTE | 2023-01-02 08:49 | CL.D_ITS ---
Patient Name: JESSIKA NÚÑEZ Study Date: 01/02/2023 Performing: Washington Rojas MD Ht: 64 inches 162.56 cm : 1960 Wt: 153.99 lbs 69.85 kg Age: 62 Gender: female BSA: 1.75 PROCEDURE(S) PERFORMED [id number])LHC/COR/LV CLINICAL PROFILE AND INDICATIONS Indications: Suspected CAD Heart Failure: None Stress/Imaging Date: 12/19/22Stress Echocardiogram: Positive Intermediate Risk CAD Presentations: Symptom unlikely to be ischemic. CONCLUSIONS Normal coronary arteries Normal LV size, wall motion,and systolic function RECOMMENDATIONS Medical therapy DESCRIPTION OF PROCEDURE The patient arrived to the procedure lab. The risks and benefits of the procedure as well as a full description of our services here and current unavailability of surgical backup were fully explained to the patient and/or their significant other prior to the catheterization. The Timeout was completed, verifying the correct patient and procedure. The patient's procedural site was prepped and draped in the usual fashion. Local anesthetic was given subcutaneously to right radial region with Lidocaine 2%. Using a modified Seldinger technique, arterial access was obtained via the right radial artery, a 6Fr sheath was inserted. Left Coronary Artery selective angiography was performed in multiple views using a 5 Fr. 4.0 Erin catheter. Right Coronary Artery selective angiography was then performed in multiple views using a 5 Fr. 4.0 Erin catheter. Left Ventriculography was performed in MOELLER projection using a 5 Fr. Pigtail catheter. LV to AO pullback pressures were then recorded.The arterial sheath was pulled and a TR Band was applied for hemostasis CORONARY ANGIOGRAPHY DOMINANCE: Right Dominant LEFT HEART ASSESSMENT Left Ventricular Ejection Fraction: by LV Gram 60 % Normal LV wall motion Normal Left Ventricular systolic function Normal Left Ventricular systolic function LEFT MAIN: Angiographically normal LEFT ANTERIOR DESCENDING ARTERY: Angiographically normal CIRCUMFLEX ARTERY: Angiographically normal RIGHT CORONARY ARTERY: Angiographically normal COMPLICATIONS No Complications PROCEDURE MEDICATIONS Fentanyl 50 mcg IV Versed 1 mg IV Versed 1 mg IV Oxygen: 2 L/min via nasal cannula Heparin given IA 01/02/2023 08:02:54 Verapamil 2.5mg, Ntg 100mcgs, 3000 units of Heparin given IA 01/02/2023 08:02:54 SUMMARY OF HEMODYNAMIC DATA Time AIR REST ECG 06:59:48 Art 104/56 (75) 08:08:48 AO 130/67 (92) SA 08:24:25 LV 122/11, 16 08:30:06 LV 116/11, 17 08:30:14 LV 108/11, 16 08:30:53 LVp 111/10, 16 08:30:59 AOp 123/67 (91) 08:31:06 Signed By Washington Rojas MD On 01/02/2023 08:48:00 Washington Rojas MD
== END 2023-01-02 09:50 | disposition home or self-care (01) ==
LOC: CLSP 06:42
PROVIDERS: PCP Family Medicine; Referring Provider Internal Medicine Cardiovascular Disease; Visit Provider Internal Medicine Cardiovascular Disease
DX: R06.02 Shortness of breath (principal); R94.39 Abnormal result of other cardiovascular function study; Z82.49 Family history of ischemic heart disease and other diseases of the circulatory system; F17.200 Nicotine dependence, unspecified, uncomplicated
CPT/HCPCS: 36415; 71046; 80048; 85025; 85610; 85730; 93458; 99152; 99153; J7040; C1769; C1894; Q9967

== ENCOUNTER → 2023-04-03 | Outpatient (CLI) | payer OTHER, SELFPAY ==
[2023-04-08 15:08] LABS: Age Gdln ACOG Testing 30-65 (.); HPV APTIMA, High Risk Negative (Negative)
[2023-04-08 16:55] LABS: HPV Reflexed? YES, CHARGE PATIENT
== END | disposition home or self-care (01) ==
LOC: LAB 15:27
PROVIDERS: PCP Family Medicine; Referring Provider Family Medicine; Visit Provider Family Medicine
DX: Z12.4 Encounter for screening for malignant neoplasm of cervix (principal)
CPT/HCPCS: 87624; 88175; G0145

== ENCOUNTER → 2024-05-10 | Outpatient (CLI) | payer MEDICAID, SELFPAY ==
[2024-05-10 18:34] LABS: Cholesterol 250 mg/dL (200); High Density Lipoprotein 80 mg/dL; Triglycerides 97 mg/dL; Very Low Density Lipoprotein 19 mg/dL (5-40)
== END | disposition home or self-care (01) ==
PROVIDERS: PCP Family Medicine; Referring Provider Family Medicine; Visit Provider Family Medicine
DX: Z00.00 Encounter for general adult medical examination without abnormal findings (principal)
CPT/HCPCS: 36415; 80061

== ENCOUNTER → 2024-06-01 | Outpatient (CLI) | payer OTHER, SELFPAY ==
--- NOTE | 2024-06-01 07:38 | BI_ITS ---
MAMMOGRAPHY - BILATERAL SCREENING REASON FOR EXAM: Female, 64 years old. Routine annual screening examination. PERTINENT HISTORY: Aunt with breast cancer. TECHNIQUE: Digital bilateral breast trever (3D mammographic acquisition) in the CC and MLO projections. 2-D mediolateral oblique (MLO) and craniocaudad (CC) views of both breasts were obtained. CAD: Full Field Digital Mammography with Computer Added Detection was performed. COMPARISON: Comparison is made with prior study February 15, 2020 and January 22, 2019. FINDINGS: Breast Composition: The breasts are heterogeneously dense, which may obscure small masses. There are no dominant masses or suspicious calcifications. No other significant abnormalities are identified. There has been no significant change since the prior study. BI/SCRN MAMM (CAD)W/TREVER BILAT IMPRESSION: Stable bilateral screening mammogram. Yearly follow-up mammogram recommended. (A) ASSESSMENT CATEGORY: BIRADS Category 1: Negative. A letter regarding these results will be sent to the patient by the facility within 30 days. Approximately 10% of breast cancers are not detected by mammography. A normal mammogram should not delay biopsy of a clinically suspicious abnormality. [id number] Electronically Signed: Gabe Haddad MD at 11:18 EST ,
== END | disposition home or self-care (01) ==
PROVIDERS: PCP Family Medicine; Referring Provider Family Medicine; Visit Provider Family Medicine
DX: Z12.31 Encounter for screening mammogram for malignant neoplasm of breast (principal); Z80.3 Family history of malignant neoplasm of breast
CPT/HCPCS: 77063; 77067

== ENCOUNTER → 2024-06-16 | Outpatient (CLI) | payer OTHER, SELFPAY ==
--- NOTE | 2024-06-16 06:59 | CT_ITS ---
STUDY: LOW DOSE CT LUNG CANCER SCREENING REASON FOR EXAM: Female, 64 years old. Smoker. Patient smokes half a pack per day for 35 years. Emphysema/COPD. RADIATION DOSAGE (If Supplied By Facility): CTDIvol = ( 2.01 ) mGy, DLP = ( 69.22 ) mGycm TECHNIQUE: No contrast was administered. Low dose technique was utilized (average mAS-38 and kVp 120). 1.25 mm axial source images with a slice interval of 1.25-mm were reconstructed in lung windows. 2.5 mm axial source images with a slice interval of 2.5-mm were reconstructed in lung windows. 5.0 mm axial source images with a slice interval of 5.0-mm were reconstructed in soft tissue windows. COMPARISON: Comparison is made with prior study dated May 14, 2022. NODULES: No suspicious nodules are seen. Emphysema: Emphysematous changes. Stable apical bilateral scarring. Endobronchial lesion: None Aorta: Unremarkable CORONARY ARTERIES: Coronary artery calcification is not seen. Heart: Unremarkable Pulmonary artery: Unremarkable Mediastinal nodes: Unremarkable Other chest and abdominal findings: CT/Low Dose CT Lung Screening IMPRESSION: Lung-RADS category 2 - Continue annual screening with LDCT in 12 months. IMPORTANT NOTES FOR USE: ACR Lung-RADS Version 1.1 Assessment Categories Release Date: 2018 Category: Coded 0-4 bases on nodule(s) with highest degree of suspicion. Negative screen is defined as categories 1 and 2; a positive screen is defined as categories 3 and 4. Category 3 and 4A nodules that are unchanged on interval CT should be coded as category 2, and individuals returned to screening in 12 months. Category 4X: Category 3 or 4 nodules with additional imaging findings that increase the suspicion of lung cancer, such as spiculation, GGN that doubles in size in 1 year, enlarged lymph notes, etc. Category Modifiers: S (significant finding unrelated to lung cancer) Electronically Signed: Gabe Haddad MD at 13:17 EST ,
== END | disposition home or self-care (01) ==
LOC: CT 06:59
PROVIDERS: PCP Family Medicine; Referring Provider Nurse Practitioner Acute Care; Visit Provider Nurse Practitioner Acute Care
DX: Z12.2 Encounter for screening for malignant neoplasm of respiratory organs (principal); F17.210 Nicotine dependence, cigarettes, uncomplicated
CPT/HCPCS: 71271

== ENCOUNTER → 2024-10-21 | Outpatient (CLI) | payer OTHER, SELFPAY ==
[2024-10-21 12:44] LABS: Absolute Lymphocyte Count 0.94 X10^3/uL (0.83-4.51); Absolute Neutrophil Count 6.7 X10^3/uL (2.0-7.7); Basophil# 0.04 X10^3/uL; Basophil% 0.5 % (0-1); Eosinophil# 0.07 X10^3/uL; Eosinophils% 0.8 % (0-5); Hematocrit 43.1 % (37-47); Hemoglobin 14.3 g/dL (12.0-15.0); Lymphocyte # 0.94 X10^3/ul (0.83-4.51); Lymphocyte % 11.1 % (19-41); Mean Corp Hgb Conc 33.2 g/dL (32-36); Mean Corpuscular Volume 93.5 fL (81-99); Monocyte# 0.71 X10^3/uL; Monocyte% 8.4 % (0-10); NRBC Flagged by Analyzer 0 % (0-5); Neutrophil # 6.66 X10^3/uL (2.7-7.7); Neutrophil % 78.8 % (47-70); Platelet Count 285 K/mm3 (150-450); RBC Distribution Width CV 13.4 % (11.6-14.6); RBC Distribution Width SD 45.8 fl (35.1-43.9); Red Blood Count 4.61 M/mm3 (4.2-5.4); White Blood Count 8.5 K/mm3 (4.4-11.0)
[2024-10-21 13:32] LABS: ALB/GLOB Ratio 1.8 RATIO (0.9-2.4); AST(SGOT) 24 U/L (<=31); Alanine Aminotransfer ALT/SGPT 18 U/L (<=34); Albumin, Serum 4.3 g/dL (3.4-4.8); Alkaline Phosphatase 70 U/L (35-104); Anion Gap 12 (5-15); BUN 8 mg/dL (4-19); BUN/Creat Ratio 11.2 RATIO (10-20); Calcium,Total 9.2 mg/dL (7.6-11.0); Carbon Dioxide 25.9 mmol/L (21.0-32.0); Chloride 100 mmol/L (98-108); Creatinine, Serum 0.74 mg/dL (0.70-1.20); EST Glomerular Filtration Rate 90 (>60); Ferritin 41 ng/mL (22-378); Globulin 2.4 g/dL (2.2-4.2); Glucose 95 mg/dL (70-99); Potassium 4.3 mmol/L (3.3-5.1); Protein, Total 6.7 g/dL (5.9-8.4); Sodium Level 139 mmol/L (133-145); Total Bilirubin 0.41 mg/dL (0.00-1.30)
[2024-10-21 16:08] LABS: Iron 71 ug/dL (50-170)
== END | disposition home or self-care (01) ==
LOC: BFHLAB 08:50
PROVIDERS: PCP Family Medicine; Visit Provider Nurse Practitioner Family
DX: D50.9 Iron deficiency anemia, unspecified (principal); T14.8XXA Other injury of unspecified body region, initial encounter
CPT/HCPCS: 36415; 80053; 82728; 83540; 85025

== ENCOUNTER → 2024-12-27 | Outpatient (CLI) | payer OTHER, SELFPAY | END | disposition home or self-care (01) | LOC: LABSPEC 10:27 | PROVIDERS: PCP Family Medicine; Referring Provider Nurse Practitioner Family; Visit Provider Nurse Practitioner Family | DX: J44.9 Chronic obstructive pulmonary disease, unspecified (principal) | CPT/HCPCS: 87070; 87205 ==

== ENCOUNTER → 2025-03-21 | Outpatient (CLI) | payer OTHER, SELFPAY ==
[2025-03-21 13:12] LABS: Hematocrit 45.7 % (37-47); Hemoglobin 14.8 g/dL (12.0-15.0); Immature Granulocytes Count 0.030 X10^3/uL (0.0-0.0); Mean Corp Hgb Conc 32.4 g/dL (32-36); Mean Corpuscular Volume 95.2 fL (81-99); Mean Platelet Vol. 9.5 fl (6.2-12.0); NRBC Flagged by Analyzer 0 % (0-5); Platelet Count 284 K/mm3 (150-450); RBC Distribution Width CV 13.0 % (11.6-14.6); RBC Distribution Width SD 45.5 fl (35.1-43.9); Red Blood Count 4.80 M/mm3 (4.2-5.4); White Blood Count 8.0 K/mm3 (4.4-11.0)
== END | disposition home or self-care (01) ==
LOC: MTLAB 11:07
PROVIDERS: PCP Family Medicine; Referring Provider Nurse Practitioner Family; Visit Provider Nurse Practitioner Family
DX: J44.9 Chronic obstructive pulmonary disease, unspecified (principal); R06.02 Shortness of breath
CPT/HCPCS: 36415; 85025

== ENCOUNTER → 2025-06-20 | Outpatient (CLI) | payer OTHER, MEDICAID, SELFPAY ==
--- OUTSIDE RECORDS SUMMARY | 2025-06-20 06:51 | XMS RPT_ITS | CCD ---
Author Organization [facility] CliniSymd Care Team Providers Care Applications Programmer Name Role Phone Sonja PATTERN GRADER SUPERVISOR, Carol S Unavailable Dr. Edyta Nichole Primary Care Provider [phone] Dr. Edyta Nichole Referring Provider Dr. Leighton Ruiz Attending Provider Dr. Edyta Nichole Primary Care Provider Dr. Edyta Nichole Referring Provider Sonja FOREMAN/PILE DRIVING AND ERECTION, FOREMAN/PILE DRIVING AND ERECTION-C Carol Attending Provider Sonja FOREMAN/PILE DRIVING AND ERECTION, FOREMAN/PILE DRIVING AND ERECTION-C Carol Other Provider Dr. Santana Burgos Attending Provider Sonja FOREMAN/PILE DRIVING AND ERECTION, FOREMAN/PILE DRIVING AND ERECTION-C Carol Referring Provider Dr. Leighton Ruiz Attending Provider Dr. Edyta Nichole Primary Care Provider Dr. Edyta Nichole Referring Provider [phone] Sonja FOREMAN/PILE DRIVING AND ERECTION, FOREMAN/PILE DRIVING AND ERECTION-C Carol Attending Provider [phone] Sonja FOREMAN/PILE DRIVING AND ERECTION, FOREMAN/PILE DRIVING AND ERECTION-C Carol Referring Provider [phone] Sonja FOREMAN/PILE DRIVING AND ERECTION, FOREMAN/PILE DRIVING AND ERECTION-C Carol Other Provider Dr. Santana Burgos Attending Provider Dr. Leighton Ruiz Attending Provider Dr. Edyta Nichole Primary Care Provider Dr. Edyta Nichole Referring Provider Sonja FOREMAN/PILE DRIVING AND ERECTION, FOREMAN/PILE DRIVING AND ERECTION-C Carol Attending Provider Dr. Washington Rojas Attending Provider Dayanara, Dr. Lan Primary Care Provider Dr. Edyta Nichole Referring Provider Dr. Washington Rojas Referring Provider Bette Black Attending Provider Unavailable Crystal, Dr. Delarosa Other Provider Stephen FOREMAN/PILE DRIVING AND ERECTION, FOREMAN/PILE DRIVING AND ERECTION-C Attending Provider Alycia TORRES [facility] Primary Care Provider Edyta Nichole Primary Care Provider AGATHA ALEJO Attending Unavailable [facility] Primary Care Unavailable AGATHA ALEJO Admitting Unavailable AGATHA ALEJO Attending Unavailable WILVER DE LA CRUZ Consulting Unavailable MALTEDDY EDYTA Primary Care Unavailable EDWARD TARA E Admitting Unavailable EDWARD, TARA E Primary Care Unavailable TARA LEON Attending Unavailable MALYS EDYTA DO Consulting Unavailable MALYSBRYCEA DO Referring Unavailable PROVIDER, UNKNOWN Consulting Unavailable LOMAS, ANDREWS C Admitting Unavailable LOMAS, ANDREWS C Primary Care Unavailable LOMAS, ANDREWS C Attending Unavailable MALYSBRYCEA DO Consulting Unavailable FLOYS, EDYTA DO Referring Unavailable PROVIDER, UNKNOWN Consulting Unavailable BEATA SCHWARZ Admitting Unavailable BEATA SCHWARZ Primary Care Unavailable BEATA SCHWARZ Attending Unavailable EDYTA NICHOLE DO Consulting Unavailable PROVIDER, UNKNOWN Consulting Unavailable EDYTA NICHOLE DO Referring Unavailable STACY VALE MD Admitting Unavailable STACY VALE MD Primary Care Unavailable STACY VALE MD Attending Unavailable EDYTA NICHOLE DO Consulting Unavailable PROVIDER, UNKNOWN Consulting Unavailable Dr. Beata Schwarz MD Primary Care Provider Eitan REIS-CMicki Attending Provider Dr. Washington Rojas MD Attending Provider Dr. Beata Schwarz MD Referring Provider Sandra Hernandez Attending Provider Christie REIS-CSandra Referring Provider Dr. Beata Schwarz MD Primary Care Provider Crystal BAILEY, Dr. Delarosa Attending Provider [phone] Washington Rojas Attending Unavailable [place], [place] Primary Care Unavailable Miedel, Beata Primary Care Unavailable Miedel, Beata Attending Unavailable Miedel, Beata Referring Unavailable Miedel, [place] Primary Care Unavailable Sandra Soriano Attending Unavailable Sandra Soriano Referring Unavailable Micki Laird Attending Unavailable [place]el, [place] Primary Care Unavailable Sonja FOREMAN/PILE DRIVING AND ERECTION, Carol Attending Unavailable Sonja FOREMAN/PILE DRIVING AND ERECTION, Carol Referring Unavailable Miedel, [place] Primary Care Unavailable Miedel, [place] Primary Care Unavailable Miedel, Beata Attending Unavailable Miedel, Beata Referring Unavailable Miedel, [place] Primary Care Unavailable Sandra Soriano Attending Unavailable Sandra Soriano Referring Unavailable Sandra Sroiano Attending Unavailable Miedel, Beata Referring Unavailable Miedel, [place] Primary Care Unavailable [place]el, [place] Primary Care Unavailable Sandra Soriano Attending Unavailable Miedel, Beata Referring Unavailable Malys, Edyta Referring Unavailable Miedel, [place] Primary Care Unavailable Sandra Soriano Attending Unavailable Washington Rojas Attending Unavailable [place]ied, [place] Primary Care Unavailable [place]el, [place] Primary Care Unavailable Sandra Soriano Attending Unavailable Mied, Beata Referring Unavailable Chong BAILEY, Dr. Cota Primary Care Physician Christie FOREMAN/PILE DRIVING AND ERECTION-CSandra Attending Physician Dr. Washington Rojas MD Attending Physician [phone] Allergies Allergy Classification Reported Allergen(s) Allergy Type Date of Onset Reaction(s) Facility (3 sources) dicloxacillin; Translations: [DICLOXACILLIN] Drug Allergy 6 AOF [facility] Repository (3 sources) ePHEDrine; Translations: [EPHEDRINE] Drug Allergy 6 [facility] Repository (19 sources) Amoxicillin; Translations: [AMOXICILLIN] Drug Allergy 5 Unknown [facility] Work Phone: (6 sources) Clavulanate Drug Allergy 5 Vomiting [facility] (1 source) Clavulanate Drug Allergy 5 [facility] Repository NEGATED: Highlighted row has been ruled out! (1 source) Observed no known allergies at [facility] No Known Allergies 7 propensity to adverse reactions [facility] Work Phone: Medications Current Medications Medication Drug Class(es) Dates Sig (Normalized) Sig (Original) acetaminophen 325 mg / oxyCODONE hydrochloride 5 mg oral tablet (2 sources) Opioid Agonist Start: 08-19-2023 End: 08-26-2023 take 1 tablet by mouth every six hours as needed for pain oxyCODONE-acetami nophen (Percocet) 5-325 MG tablet Indications: Spinal stenosis Take 1 tablet by mouth every 6 hours as needed for severe pain (7-10) for up to 7 days. 15 tablet 0 08/19/2023 08/26/2023 Active [id number] 200 actuat albuterol 0.09 mg/actuat metered dose inhaler (20 sources) beta2-Adrenergic Agonist Start: 08-19-2023 End: 08-20-2023 take 2 puff(s) by inhalation every four hours as needed for wheezing 2 puff, Inhalation, Every 4 hours PRN, wheezing, Starting on Thu08/19/23 at 2131 Start: 06-23-2023 take 2 puff(s) by in halation every four hours as needed for wheezing albuterol 108 (90 Base) MCG/ACT inhaler INHALE 2 (TWO) PUFFS EVERY 4 HOURS NEEDED FOR SHORTNESS OF BREATH OR FOR WHEEZING. 0 06/23/2023 Active Start: 11-08-2021 End: 03-05-2022 take 2.5 mg by inhalation every four hours as needed for wheezing Albuterol Sulfate 2.5 mg /3 mL (0.083 %) solution for nebulization Active 2.5 mg INHALATION Q4H as needed for Sob &/Or Wheezing 180 3 March 05, 2022 10:44am Complies with drug therapy Start: 09-13-2019 End: 02-02-2024 Albuterol Sulfate 90 mcg/act uation HFA aerosol inhaler Discontinued 2 NMA INHALATION Q4H as needed for shortness of breath or wheezing 28 12January 09, 2020 11:08am June 23, 2023 9:33am Start: 09-13-2019 End: 01-09-2020 take 1 puff(s) by inhalation every four hours Albuterol Sulfate Discontinued 2 PUFF INHALATION Q4H November 23, 2019 9:28am January 09, 2020 11:16am Start: 12-07-2018 End: 09-13-2019 Albuterol Sulfate 90 mcg/act uation HFA aerosol inhaler Discontinued 2 NMA INHALATION Q4H as needed for shortness of breath or wheezing 28 12December 07, 2018 12:55pm September 13, 2019 12:18pm Start: 12-07-2018 End: 09-13-2019 take 1 puff(s) by inhalation every four hours Albuterol Sulfate Discontinued 2 PUFF INHALATION Q4H December 07, 2018 12:55pm September 13, 2019 12:18pm Start: 12-07-2018 End: 12-07-2018 Albuterol Sulfate 90 mcg/act uation HFA aerosol inhaler Discontinued 2 NMA INHALATION Q4H as needed for shortness of breath or wheezing December 07, 2018 12:00am December 07, 2018 12:55pm Start: 12-07-2018 End: 12-07-2018 take 1 puff(s) by inhalation every four hours Albuterol Sulfate Discontinued 2 PUFF INHALATION Q4H December 07, 2018 12:00am December 07, 2018 12:55pm Start: 12-07-2018 End: 12-07-2018 take 1 puff(s) by inhalation every four hours Albuterol Sulfate Discontinued 2 PUFF INHALATION Q4H December 06, 2018 11:00pm December 07, 2018 11:55am Start: 09-26-2016 take 1 dose by inhal ation every four hours as needed ALBUTEROL SULFATE (2.5 MG/3ML) 0.083% NEBU INH 1 vial q4h as needed ALBUTEROL SULFATE [id number] Carol Casillas CNP Start: 09-26-2016 take 2 puff(s) by in halation every four hours as needed VENTOLIN HFA 108 (90 Base) MCG/ACT AERS INH 2 puffs q4h as needed ALBUTEROL SULFATE [id number] Carol Casillas CNP Start: 09-06-2016 End: 09-06-2016 take 2.5 mg by inhalation every six hours as needed for wheezing Albuterol Sulfate 2.5 MG/3 ML Vial.Neb. Discontinued 2.5 mg INHALATION EVERY 6 HOURS NEEDED as needed for Sob &/Or Wheezing September 06, 2016 1:00am September 06, 2016 11:14am Start: 09-06-2016 End: 09-06-2016 Albuterol Sulfate (Ventolin Hfa (Sp)) 1 INHALER inhaler Discontinued 2 NMA INHALATION EVERY 4 HOURS NEEDED as needed for Sob &/Or Wheezing September 06, 2016 1:00am September 06, 2016 11:14am Start: 09-06-2016 End: 09-06-2016 Albuterol Sulfate (Ventolin Hfa (Sp)) 1 INHALER inhaler Discontinued 2 PUFF INHALATION EVERY 4 HOURS NEEDED September 06, 2016 1:00am September 06, 2016 11:14am Start: 10-31-2015 End: 07-10-2016 PROVENTIL HFA 108 (90 Base) MCG/ACT AERS 1 puff q6h as needed ALBUTEROL SULFATE [id number] Huber TORRES End: 01-16-2015 ALBUTEROL SULFATE (5 MG/ML) 0.5% NEBU i inhalation Q 4-6H, as needed ALBUTEROL SULFATE [id number] Mnoica Jarrell End: 10-31-2015 PROVENTIL HFA 108 (90 Base) MCG/ACT AERS 2 inhalation puffs Q 6 H as needed ALBUTEROL SULFATE [id number] Edyta Nichole, albuterol 0.833 mg/ml / ipratropium bromide 0.167 mg/ml inhalation solution (6 sources) Anticholinergic, beta2-Adrenergic Agonist Start: 12-27-2024 take 1 mL by inhalation every four to six hours as needed for wheezing Ipratropium-Albuterol 0.5 mg-3 mg(2.5 mg base)/3 mL solution for nebulization Active 3 mL INHALATION EVERY 4-6 HOURS as needed for shortness of breath or wheezing 180 6 December 27, 2024 12:00am Asthma-chronic obstructive pulmonary disease overlap syndrome Chronic obstructive pulmonary disease, unspecified Complies with drug therapy End: 01-16-2015 IPRATROPIUM-ALBUTEROL 0.5-2. 5 (3) MG/3ML SOLN 1 inhalation Q 6- 8 H, as needed IPRATROPIUM-ALBUTEROL [id number] Jordi Rodriguez MA ascorbic acid 1000 mg oral capsule (10 sources) Vitamin C Start: 10-23-2022 take 1 g by mouth once daily Ascorbic Acid (Vitamin C) 1,000 mg capsule Active 1 g PO DAILY October 23, 2022 12:00am Complies with drug therapy Start: 10-23-2022 take 1 g by mouth once daily A scorbic Acid (Vitamin C) Active 1 GM PO DAILY October 23, 2022 12:00am aspirin 81 mg delayed release oral tablet (8 sources) Platelet Aggregation Inhibitor, Nonsteroidal Anti-inflammatory Drug Start: 12-24-2022 Aspirin (Adult Lo w Dose Aspirin) 81 mg tablet,delayed release (DR/EC) Active 81 mg PO DAILY December 24, 2022 12:00am Complies with drug therapy Budesonide-Glycop yr-Formoterol (20 sources) Corticosteroid, beta2-Adrenergic Agonist Start: 03-28-2025 Budesonide-Glyc opyr-Fo rmoterol (Breztri Aerosphere) 160-9-4.8 mcg/actuation HFA aerosol inhaler Active 2 NMA INHALATION TWICE A DAY 3 March 28, 2025 12:49pm Complies with drug therapy Start: 03-28-2025 Budesonide-Gly copyr-Formoterol (Breztri Aerosphere) 160-9-4.8 mcg/actuation HFA aerosol inhaler Active 2 NMA INHALATION TWICE A DAY 3 March 28, 2025 12:49pm Start: 12-27-2024 End: 03-28-2025 Cequcgvoia-Nhlwpvkv-Tcijjcjm ol (Breztri Aerosphere) 160-9-4.8 mcg/actuation HFA aerosol inhaler Discontinued 2 NMA INHALATION TWICE A DAY 3 December 27, 2024 9:31am March 28, 2025 12:49pm Start: 12-27-2024 Budesonide-Gly copyr-Formoterol (Breztri Aerosphere) 160-9-4.8 mcg/actuation HFA aerosol inhaler Active 2 NMA INHALATION TWICE A DAY 3 3 December 27, 2024 9:31am Start: 12-27-2024 Budesonide-Gly copyr-Formoterol (Breztri Aerosphere) 160-9-4.8 mcg/actuation HFA aerosol inhaler Active 2 NMA INHALATION TWICE A DAY 3 December 27, 2024 9:31am Start: 06-24-2024 End: 12-27-2024 Gkjxxngimc-Iowynabl-Gvsnpaty ol (Breztri Aerosphere) 160-9-4.8 mcg/actuation HFA aerosol inhaler Discontinued 2 NMA INHALATION TWICE A DAY 3 3 June 24, 2024 9:46am December 27, 2024 9:49am Start: 06-24-2024 End: 12-27-2024 Shokyujmxg-Lsahfssv-Ukkihsfn ol (Breztri Aerosphere) 160-9-4.8 mcg/actuation HFA aerosol inhaler Discontinued 2 NMA INHALATION TWICE A DAY 3 June 24, 2024 9:46am December 27, 2024 9:49am Start: 06-24-2024 Budesonide-Gly copyr-Formoterol (Breztri Aerosphere) 160-9-4.8 mcg/actuation HFA aerosol inhaler Active 2 NMA INHALATION TWICE A DAY 3 June 24, 2024 9:46am Start: 04-28-2024 End: 06-24-2024 Yobcuatvwv-Gkquvyga-Ucmbudwx ol (Breztri Aerosphere) 160-9-4.8 mcg/actuation HFA aerosol inhaler Discontinued 2 NMA INHALATION TWICE A DAY 3 3 April 28, 2024 7:31pm June 24, 2024 9:47am Start: 04-28-2024 End: 06-24-2024 Uetfdzxkpn-Thhrgtbt-Zlxgvkoh ol (Breztri Aerosphere) 160-9-4.8 mcg/actuation HFA aerosol inhaler Discontinued 2 NMA INHALATION TWICE A DAY 3 April 28, 2024 7:31pm June 24, 2024 9:47am Start: 02-02-2024 End: 04-28-2024 Ifsjhyddyb-Wfukrrwx-Ljoajkmn ol (Breztri Aerosphere) 160-9-4.8 mcg/actuation HFA aerosol inhaler Discontinued 2 NMA INHALATION TWICE A DAY 3 3 February 02, 2024 8:24am April 28, 2024 7:32pm Start: 02-02-2024 End: 04-28-2024 Iiecwdblul-Xpetjjmb-Hbhcziym ol (Breztri Aerosphere) 160-9-4.8 mcg/actuation HFA aerosol inhaler Discontinued 2 NMA INHALATION TWICE A DAY 3 February 02, 2024 8:24am April 28, 2024 7:32pm Start: 11-11-2023 End: 02-02-2024 Myyylhaegc-Qewsfmvv-Xjqnpcpx ol (Breztri Aerosphere) 160-9-4.8 mcg/actuation HFA aerosol inhaler Discontinued 2 NMA INHALATION TWICE A DAY 10.7 November 11, 2023 8:21am February 02, 2024 8:24am Start: 11-11-2023 End: 02-02-2024 Hpgdylwttc-Drxgwvxm-Tkoassmw ol (Breztri Aerosphere) 160-9-4.8 mcg/actuation HFA aerosol inhaler Discontinued 2 NMA INHALATION TWICE A DAY 10.7 November 11, 2023 8:21am February 02, 2024 8:24am Start: 07-20-2023 take 2 puff(s) by inhalation twice daily Breztri Aerosphere 160-9-4.8 MCG/ACT aerosol INHALE 2 (TWO) puffs twice a day] 0 07/20/2023 Active Start: 10-07-2022 End: 11-11-2023 Sgxrrkhmiv-Ytfxktmy-Vehapesj ol (Breztri Aerosphere) 160-9-4.8 mcg/actuation HFA aerosol inhaler Discontinued 2 NMA INHALATION TWICE A DAY 10.7 October 07, 2022 10:42am November 11, 2023 8:21am Start: 10-07-2022 End: 11-11-2023 Puqkvvbdpy-Oheswohk-Ushczkjr ol (Breztri Aerosphere) 160-9-4.8 mcg/actuation HFA aerosol inhaler Discontinued 2 NMA INHALATION TWICE A DAY 10.7 October 07, 2022 10:42am November 11, 2023 8:21am Start: 10-07-2022 Budesonide-Gly copyr-Formoterol (Breztri Aerosphere) 160-9-4.8 mcg/actuation HFA aerosol inhaler Active 2 INH INHALATION TWICE A DAY 10.7 October 07, 2022 10:42am Start: 03-05-2022 End: 10-07-2022 Xazbudctbg-Lufdbprc-Nrlnljdl ol (Breztri Aerosphere) 160-9-4.8 mcg/actuation HFA aerosol inhaler Discontinued 2 NMA INHALATION TWICE A DAY 10.7 5 March 05, 2022 12:00am October 07, 2022 10:42am Start: 03-05-2022 End: 10-07-2022 Iecgznmbye-Ydtaxvoo-Ctxwqhmn ol (Breztri Aerosphere) 160-9-4.8 mcg/actuation HFA aerosol inhaler Discontinued 2 NMA INHALATION TWICE A DAY 10.7 March 05, 2022 12:00am October 07, 2022 10:42am Start: 03-05-2022 End: 10-07-2022 Llookkmkwn-Cvfjcqve-Gdvvlkoe ol (Breztri Aerosphere) 160-9-4.8 mcg/actuation HFA aerosol inhaler Discontinued 2 INH INHALATION TWICE A DAY 10.7 March 05, 2022 12:00am October 07, 2022 10:42am Start: 03-05-2022 Budesonide-Gly copyr-Formoterol (Breztri Aerosphere) 160-9-4.8 mcg/actuation HFA aerosol inhaler Active 2 INH INHALATION TWICE A DAY 10.7 March 04, 2022 11:00pm calcium carbonate 1500 mg oral tablet (14 sources) Start: 09-21-2018 take 1 tablet by mouth once daily Calcium Carbonate (Calcium 600) 600 mg calcium (1,500 mg) tablet Active 600 mg PO DAILY September 21, 2018 12:00am SUPPLEMENT Complies with drug therapy cholecalciferol 0.05 mg oral capsule (17 sources) Vitamin D Start: 11-15-2018 take 1 capsule by mouth once daily Cholecalciferol (Vitamin D3) 2,000 UNIT capsule Active 2000 U PO DAILY November 15, 2018 12:00am SUPPLEMENT Complies with drug therapy Start: 07-10-2016 VITAMIN D (CHO LECALCIFEROL) TABS as directed CHOLECALCIFEROL TABS [id number] Huber TORRES Cholecalciferol (D3-1000 PO) Take by mouth. 0 Active cyclobenzaprine hydrochloride 5 mg oral tablet (12 sources) Muscle Relaxant Start: 10-23-2022 take 1-2 tablets by mouth once daily at bedtime Cyclobenzaprine 5 mg tablet Active 5 mg PO AT BEDTIME October 23, 2022 12:00am 1-2 tabs daily at bedtime Complies with drug therapy Start: 10-31-2015 End: 07-10-2016 take 1 tablet by mouth every eight hours as needed for pain CYCLOBENZAPRINE HCL 10 MG TABS 1 po every 8 hours as needed for muscle spasm/pain CYCLOBENZAPRINE HCL [id number] Huber TORRES diclofenac sodium 0.01 mg/mg topical gel (10 sources) Nonsteroidal Anti-inflammatory Drug Start: 10-23-2022 Diclofenac Sodium (Arthritis Pain (Diclofenac)) 1 % gel Active 4 g TOPICAL 4 TIMES DAILY October 23, 2022 12:00am Complies with drug therapy docusate sodium 100 mg oral capsule (2 sources) Start: 08-19-2023 End: 08-30-2023 take 1 capsule by mouth twice daily docusate sodium (Colace) 100 MG capsule Take 1 capsule (100 mg) by mouth 2 times daily for 10 days. 20 capsule 0 08/19/2023 08/30/2023 Active FLUoxetine 20 mg oral capsule (7 sources) Serotonin Reuptake Inhibitor Start: 06-24-2024 take 1 capsule by mouth once daily Fluoxetine 20 mg capsule Active 20 mg PO daily June 24, 2024 1:00am Complies with drug therapy 12 hr guaiFENesin 1200 mg extended release oral tablet (6 sources) Start: 12-27-2024 take 1 tablet by mouth once daily, then take 1 tablet by mouth every twelve hours Guaifenesin (Mucinex) 1,200 mg tablet extended release 12hr Active 1200 mg PO .QD 90 3 December 27, 2024 12:00am Complies with drug therapy Nebulizer tubing & mouth piece (13 sources) Start: 07-22-2022 Nebulizer tubing & mouth piece Active 0 .Route .MEDSUPPLY 1 July 22, 2022 1:00am Stage 3 severe COPD by GOLD classification Chronic obstructive pulmonary disease, unspecified As directed Start: 07-22-2022 Nebulizer tubi ng & mouth piece Active 0 .Route .MEDSUPPLY July 22, 2022 1:00am As directed Start: 07-22-2022 Nebulizer tubi ng & mouth piece Active 0 .Route .MEDSUPPLY July 22, 2022 12:00am As directed omeprazole 20 mg delayed release oral capsule (17 sources) Proton Pump Inhibitor Start: 03-28-2025 take 1 capsule by mouth twice daily 30 minutes before breakfast Omeprazole 20 mg capsule,delayed release(DR/EC) Active 20 mg PO TWICE A DAY 60 3 March 28, 2025 12:00am Asthma-chronic obstructive pulmonary disease overlap syndrome Chronic obstructive pulmonary disease, unspecified 30 min before breakfast and 45 min before dinner Complies with drug therapy Start: 09-21-2018 End: 09-22-2018 take 1 tablet by mouth once daily Omeprazole Magnesium (Prilosec Otc) 20 mg tablet,delayed release (DR/EC) Discontinued 20 mg PO DAILY September 21, 2018 12:00am September 22, 2018 11:08am take 1 tablet by antwan once daily [facility] OMEPRAZOLE 20 MG TBEC One tablet by mouth daily OMEPRAZOLE [id number] Monica Jarrell Turmeric extract (10 sources) Start: 10-23-2022 take 1 capsule by mo uth once daily Turmeric 400 mg capsule Active 400 mg PO DAILY October 23, 2022 12:00am Complies with drug therapy Start: 10-23-2022 take 1 capsule by mo uth once daily Turmeric 400 mg capsule Active 400 mg PO DAILY October 23, 2022 12:00am Start: 10-23-2022 take 400 mg by mouth once tangela y Turmeric Active 400 MG PO DAILY October 23, 2022 12:00am Start: 10-23-2022 Turmeric Activ e 400 MG PO October 23, 2022 12:00am Completed/Discontinued Medications Medication Drug Class(es) Dates Sig (Normalized) Sig (Original) acetaminophen 500 mg oral tablet (2 sources) Start: 08-19-2023 End: 08-20-2023 take 1 tablet by mouth every six hours 1,000 mg, Oral, Every 6 hours, First dose on Thu08/19/23 at 1730, Phase II/On Unit Albuterol Sulfate 90 mcg/actuation HFA aerosol inhaler (6 sources) Start: 12-07-2018 End: 12-07-2018 Albuterol Sulfate 90 mcg/actuation HFA aerosol inhaler Discontinued 2 NMA INHALATION Q4H as needed for shortness of breath or wheezing December 07, 2018 12:00am December 07, 2018 12:55pm ALPRAZolam 0.25 mg disintegrating oral tablet (2 sources) Benzodiazepine Start: 08-19-2023 End: 08-19-2023 ALPRAZolam (Xanax) disintegrating tablet 0.25 mg amoxicillin 875 mg oral tablet (1 source) Penicillin-class Antibacterial Start: 04-22-2017 take 1 tablet by mouth twice daily AMOXICILLIN 875 MG TABS One tablet by mouth twice daily AMOXICILLIN [id number] Olivia Meraz [employer] azithromycin 250 mg oral tablet (14 sources) Macrolide Antimicrobial Start: 09-13-2019 End: 09-22-2019 take 1 tablet by mouth once daily Azithromycin 250 mg tablet Discontinued 250 mg PO daily 6 0 September 13, 2019 1:00am September 22, 2019 1:42pm budesonide 0.25 mg/ml inhalation suspension (3 sources) Corticosteroid Start: 02-07-2025 End: 03-28-2025 take 0.5 mg by inhalation once daily Budesonide 0.5 mg/2 mL suspension for nebulization Discontinued 0.5 mg INHALATION daily 60 5 February 07, 2025 12:00am March 28, 2025 12:50pm Asthma-chronic obstructive pulmonary disease overlap syndrome Chronic obstructive pulmonary disease, unspecified 120 actuat budesonide 0.16 mg/actuat / formoterol fumarate 0.0045 mg/actuat metered dose inhaler (20 sources) Corticosteroid, beta2-Adrenergic Agonist Start: 02-28-2019 End: 01-23-2020 Budesonide-Formoter ol (Symbicort) 160-4.5 mcg/actuation HFA aerosol inhaler Discontinued 2 NMA INHALATION TWICE A DAY 1 August 22, 2019 11:58am October 19, 2019 9:26am administer with spacer, rinse mouth after each use Start: 02-28-2019 End: 01-23-2020 take 1 puff(s) by mouth twice daily Budesonide-Formoterol (Symbicort) 160-4.5 mcg/actuation HFA aerosol inhaler Discontinued 2 PUFF INHALATION TWICE A DAY August 22, 2019 11:58am October 19, 2019 9:26am administer with spacer, rinse mouth after each use Start: 09-16-2018 End: 12-30-2018 Budesonide-Formoterol 1 INHA LER inhaler Discontinued 2 NMA INHALATION TWICE A DAY November 15, 2018 8:05pm December 30, 2018 10:06am COPD administer with spacer, rinse mouth after each use Start: 09-16-2018 End: 12-30-2018 take 1 puff(s) by mouth twice daily Budesonide-Formoterol Discontinued 2 PUFF INHALATION TWICE A DAY November 15, 2018 8:05pm December 30, 2018 10:06am administer with spacer, rinse mouth after each use Start: 09-26-2016 take 2 puff(s) by in halation twice daily SYMBICORT 160-4.5 MCG/ACT AERO INH 2 puffs twice daily BUDESONIDE-FORMOTEROL FUMARATE [id number] Olivia Meraz LPN Start: 09-06-2016 End: 09-16-2018 Budesonide-Formoterol 1 INHA LER inhaler Discontinued 1 NMA IN NEEDED as needed for Sob &/Or Wheezing September 06, 2016 1:00am September 16, 2018 9:23am Start: 09-06-2016 End: 09-16-2018 Budesonide-Formoterol Discon tinued 1 PUFF IN NEEDED September 06, 2016 1:00am September 16, 2018 9:23am Start: 10-31-2015 End: 07-10-2016 SYMBICORT 160-4.5 MCG/ACT AE RO 2 puffs inhaled twice daily BUDESONIDE-FORMOTEROL FUMARATE [id number] Huber TORRES Start: 10-31-2015 SYMBICORT 160- 4.5 MCG/ACT AERO 1 puff daily BUDESONIDE-FORMOTEROL FUMARATE [id number] Edyta Nichole DO smoking cessation 12 hr buPROPion hydrochloride 150 mg extended release oral tablet (14 sources) Aminoketone Start: 08-27-2021 End: 03-05-2022 take 1 tablet by mouth once daily, then take 1 tablet by mouth twice daily Bupropion Hcl (Smoking Deter) 150 mg tablet extended release 12 hr Discontinued 150 mg PO TWICE A DAY 60 1 August 27, 2021 1:00am March 05, 2022 10:34am Take 1 tab per day for 14 days, then increase to 1 tab twice daily [place] CARBONATE-MAG HYDROXIDE CHEW (1 source) Start: 07-10-2016 ANTACID CHEW PRN CA CARBONATE-MAG HYDROXIDE CHEW [id number] Huber TORRES Calcium (1 source) Phosphate Binder, Calcium Start: 09-26-2016 take 1 tablet by mouth once daily CALCIUM 600 MG TABS One tablet by mouth daily CALCIUM [id number] Olivia Meraz LPN calcium chloride 0.0014 meq/ml / potassium chloride 0.004 meq/ml / sodium chloride 0.103 meq/ml / sodium lactate 0.028 meq/ml injectable solution (2 sources) Start: 08-19-2023 End: 08-20-2023 lactated Ringer's (LR) infusion ceFAZolin 2000 mg injection (2 sources) Cephalosporin Antibacterial Start: 08-20-2023 End: 08-20-2023 take 2 g intravenously every eight hours ceFAZolin in dextrose 4% (Ancef) IVPB 2 g Codeine / guaiFENesin (2 sources) Opioid Agonist CHERATUSSIN AC 100-10 MG/5ML SOLN 1-2 teaspoon oral at bedtime as needed GUAIFENESIN-CODE INE [id number] Monica Jarrell End: 01-16-2015 CHERATUSSIN AC 100-10 MG/5ML SOLN 1-2 teaspoon oral at bedtime as needed GUAIFENESIN-CODEINE [id number] Jordi Rodriguez MA DULoxetine 20 mg delayed release oral capsule (20 sources) Serotonin and Norepinephrine Reuptake Inhibitor Start: 10-23-2022 End: 06-24-2024 take 1 capsule by mouth once daily Duloxetine 20 mg capsule,delayed release(DR/EC) Discontinued 20 mg PO DAILY October 23, 2022 12:00am June 24, 2024 9:33am Start: 10-31-2015 End: 09-22-2018 take 1 capsule by mouth once daily Duloxetine 30 MG capsule Discontinued 30 mg PO DAILY September 06, 2016 1:00am September 22, 2018 11:08am fluticasone propionate 0.05 mg/actuat metered dose nasal spray (14 sources) Corticosteroid Start: 07-05-2019 End: 10-02-2022 Fluticasone Propionate 50 mcg/actuation spray,suspension Discontinued 2 NMA INTRANASAL DAILY 16 July 05, 2019 1:00am October 02, 2022 9:19am Start: 07-05-2019 End: 10-02-2022 Fluticasone Propionate Disco ntinued 2 SPRAY INTRANASAL DAILY July 05, 2019 1:00am October 02, 2022 9:19am Hxxtlxnvccx-Cmjcietwt-Ufguof er (14 sources) Anticholinergic, Corticosteroid, beta2-Adrenergic Agonist Start: 12-30-2018 End: 02-28-2019 Xlbvdabofjy-Pkxelzsqr-Otpdzj er (Trelegy Ellipta) 100-62.5-25 mcg blister with device Discontinued 1 NMA INHALATION DAILY 60 11 December 30, 2018 12:00am February 28, 2019 2:14pm Chronic obstructive pulmonary disease, unspecified Start: 12-30-2018 End: 02-28-2019 Gudzpichlvi-Cbxqpkzoz-Fgvnxx er (Trelegy Ellipta) 100-62.5-25 mcg blister with device Discontinued 1 NMA INHALATION DAILY 60 December 30, 2018 12:00am February 28, 2019 2:14pm Start: 12-30-2018 End: 02-28-2019 Ghxkybqgvam-Dyqifihmb-Fbmjro er (Trelegy Ellipta) 100-62.5-25 mcg blister with device Discontinued 1 INH INHALATION DAILY 60 December 30, 2018 12:00am February 28, 2019 2:14pm Start: 12-30-2018 End: 02-28-2019 Zzvxxkygqxn-Ddmbmoyaz-Qzklns er (Trelegy Ellipta) 100-62.5-25 mcg blister with device Discontinued 1 INH INHALATION DAILY 60 December 29, 2018 11:00pm February 28, 2019 1:14pm Folic Acid (2 sources) Start: 07-10-2016 End: 04-22-2017 FOLIC ACID CAPS as directed FOLIC ACID CAPS [id number] Olivia Meraz SOLAR ENERGY ENGINEER Start: 07-10-2016 FOLIC ACID CAP S as directed FOLIC ACID CAPS [id number] Huber Quezada PA 120 actuat formoterol fumarate 0.0048 mg/actuat / glycopyrrolate 0.009 mg/actuat metered dose inhaler (20 sources) beta2-Adrenergic Agonist Start: 01-27-2022 End: 01-28-2022 Glycopyrrolate-Formoterol (Bevespi Aerosphere) 9-4.8 mcg HFA aerosol inhaler Discontinued 2 NMA INHALATION Q12H 10.7 5 January 27, 2022 12:00am January 28, 2022 5:34am Start: 01-27-2022 End: 01-28-2022 Glycopyrrolate-Formoterol (B evespi Aerosphere) 9-4.8 mcg HFA aerosol inhaler Discontinued 2 PUFF INHALATION Q12H 10.7 January 27, 2022 12:00am January 28, 2022 5:34am Start: 01-23-2020 End: 11-07-2021 Glycopyrrolate-Formoterol (B evespi Aerosphere) 9-4.8 mcg HFA aerosol inhaler Discontinued 2 NMA INHALATION every day in the morning and in the evening 1 January 28, 2021 1:00pm August 07, 2021 11:12am Start: 01-23-2020 End: 11-07-2021 Glycopyrrolate-Formoterol (B evespi Aerosphere) 9-4.8 mcg HFA aerosol inhaler Discontinued 2 PUFF INHALATION every day in the morning and in the evening January 28, 2021 1:00pm August 07, 2021 11:12am 60 actuat formoterol fumarate 0.005 mg/actuat / mometasone furoate 0.2 mg/actuat metered dose inhaler (2 sources) Corticosteroid, beta2-Adrenergic Agonist Start: 08-19-2023 End: 08-20-2023 mometasone-formoterol (Dulera 200) 200-5 MCG/ACT inhaler 2 puff gabapentin 100 mg oral capsule (2 sources) Anti-epileptic Agent Start: 08-19-2023 End: 08-19-2023 gabapentin (Neurontin) capsule 100 mg 1 ml HYDROmorphone hydrochloride 1 mg/ml cartridge (2 sources) Opioid Agonist Start: 08-19-2023 End: 08-19-2023 HYDROmorphone (Dilaudid) injection 0.5 mg HYDROmorphone (Dilaudid) injection 0.25 mg (2 sources) Start: 08-19-2023 End: 08-20-2023 HYDROmorphone (Dilaudid) injection 0.25 mg ibuprofen 600 mg oral tablet (17 sources) Nonsteroidal Anti-inflammatory Drug Start: 09-18-2016 End: 09-21-2018 Ibuprofen 600 MG tablet Discontinued 600 mg PO NEEDED as needed for Pain September 18, 2016 1:00am September 21, 2018 2:37pm Start: 12-02-2010 End: 07-10-2016 IBUPROFEN 600 MG TABS 12/02 IBUPROFEN [id number] Erin Cowan PROBIOTIC PRODUCT CHEW (2 sources) Start: 07-10-2016 ACIDOPHILUS CH EW as directed PROBIOTIC PRODUCT CHEW [id number] Huber TORRES Start: 07-10-2016 End: 04-22-2017 ACIDOPHILUS CHEW as directed PROBIOTIC PRODUCT CHEW [id number] Olivia Meraz LPN lansoprazole 15 mg delayed release oral capsule (14 sources) Proton Pump Inhibitor Start: 04-14-2013 End: 09-21-2018 Lansoprazole 15 MG capsule Discontinued 20 mg PO DAILY April 14, 2013 12:00am September 21, 2018 2:37pm Start: 04-14-2013 End: 09-21-2018 take 20 mg by mouth once daily Lansoprazole Discontinu ed 20 MG PO DAILY April 14, 2013 12:00am September 21, 2018 2:37pm levoFLOXacin 750 mg oral tablet (20 sources) Quinolone Antimicrobial Start: 08-26-2022 End: 10-02-2022 take 1 tablet by mouth once daily Levofloxacin 750 mg tablet Discontinued 750 mg PO DAILY 7 0 August 26, 2022 1:00am October 02, 2022 9:09am Start: 07-22-2022 End: 07-29-2022 take 1 tablet by mouth every twenty-four hours Levofloxacin 750 mg tablet Discontinued 750 mg PO Q24H 7 7 0 July 22, 2022 1:00am July 28, 2022 1:00am July 29, 2022 1:04am Stage 3 severe COPD by GOLD classification Chronic obstructive pulmonary disease, unspecified Start: 09-22-2019 End: 09-27-2019 take 1 tablet by mouth every twenty-four hours Levofloxacin (Levaquin) 500 mg tablet Discontinued 500 mg PO Q24H 5 5 0 September 22, 2019 12:00am September 26, 2019 12:00am September 27, 2019 12:07am Start: 07-05-2019 End: 07-10-2019 take 1 tablet by mouth every twenty-four hours Levofloxacin (Levaquin) 500 mg tablet Discontinued 500 mg PO Q24H 5 5 0 July 05, 2019 1:00am July 09, 2019 1:00am July 10, 2019 1:08am 1 ml LORazepam 2 mg/ml injection (2 sources) Benzodiazepine Start: 08-19-2023 End: 08-19-2023 LORazepam (Ativan) injection 0.5 mg methocarbamol 750 mg oral tablet (2 sources) Muscle Relaxant Start: 08-19-2023 End: 08-20-2023 take 1 dose by mouth three times daily 750 mg, Oral, Every 8 hours scheduled (3 times per day), First dose on Thu08/19/23 at 2200, Phase II/On Unit methylPREDNISolone 4 mg oral tablet (12 sources) Corticosteroid Start: 08-26-2022 End: 10-02-2022 take 1 tablet by mouth once daily Methylprednisolone (Medrol (Rony)) 4 mg tablets,dose pack Discontinued 4 mg PO DAILY August 26, 2022 1:00am October 02, 2022 9:09am mometasone furoate 0.05 mg/actuat metered dose nasal spray (15 sources) Corticosteroid Start: 09-21-2018 End: 09-22-2018 Mometasone 50 mcg/actuation spray,non-aerosol Discontinued 2 NMA INTRANASAL DAILY September 21, 2018 12:00am September 22, 2018 11:08am Start: 09-21-2018 End: 09-22-2018 Mometasone Discontinued 2 SP RAY INTRANASAL DAILY September 21, 2018 12:00am September 22, 2018 11:08am Start: 04-22-2017 MOMETASONE FUR OATE 50 MCG/ACT SUSP 2 sprays 1 time daily MOMETASONE FUROATE [id number] Olivia Meraz LPN MULTIPLE MINERALS-VITAMINS (2 sources) take 2 tablets by mouth once daily CALCIUM & VIT D3 BONE HEALTH LIQD 600-200 MG-Unit; Two tablets by mouth daily MULTIPLE MINERALS-VITAMINS [id number] Monica Jarrell End: 10-31-2015 take 2 tablets by mouth once daily CALCIUM & VIT D3 BONE HEALTH LIQD 600-200 MG-Unit; Two tablets by mouth daily MULTIPLE MINERALS-VITAMINS [id number] Edyta Nichole, DO 1 ml naloxone hydrochloride 0.4 mg/ml injection (2 sources) Opioid Antagonist Start: 08-19-2023 End: 08-20-2023 naloxone (Narcan) injection 0.4 mg Nebulizers (7 sources) Start: 11-04-2016 End: 09-21-2018 Nebulizers Discontinued 1 EACH MC NEEDED November 04, 2016 12:00am September 21, 2018 2:37pm Start: 11-04-2016 End: 09-21-2018 Nebulizers Discontinued 1 EA CH MC NEEDED November 03, 2016 11:00pm September 21, 2018 1:37pm Nebulizers 1 EACH misc (7 sources) Start: 11-04-2016 End: 09-21-2018 Nebulizers 1 EACH misc Discontinued 1 NMA MC NEEDED as needed for Asthma November 04, 2016 12:00am September 21, 2018 2:37pm Nicotine (20 sources) Cholinergic Nicotinic Agonist Start: 08-27-2021 End: 08-26-2022 apply 1 dose transdermal route once daily, then apply 1 dose transdermal route once daily Nicotine 21-14-7 mg/24 hr patch, TD daily, sequential Discontinued 0 TD .COMPLEX 56 0 August 27, 2021 1:00am August 26, 2022 12:06pm apply 1-21 mg NICOTINE PATCH daily for 28 days; follow with 1-14 mg PATCH daily for 14 days, then 1-7mg PATCH daily for 14 days transdermal Start: 08-27-2021 End: 08-26-2022 apply 1 dose transdermal route once daily, then apply 1 dose transdermal route once daily Nicotine 21-14-7 mg/24 hr patch, TD daily, sequential Discontinued 0 TD .[facility] 56 August 27, 2021 1:00am August 26, 2022 12:06pm apply 1-21 mg NICOTINE PATCH daily for 28 days; follow with 1-14 mg PATCH daily for 14 days, then 1-7mg PATCH daily for 14 days transdermal Start: 08-27-2021 End: 08-26-2022 apply 1 dose transdermal route once daily, then apply 1 dose transdermal route once daily Nicotine Discontinued 0 TD .[facility] 56 August 27, 2021 1:00am August 26, 2022 12:06pm apply 1-21 mg NICOTINE PATCH daily for 28 days; follow with 1-14 mg PATCH daily for 14 days, then 1-7mg PATCH daily for 14 days transdermal Start: 08-27-2021 End: 08-26-2022 apply 1 dose transdermal route once daily, then apply 1 dose transdermal route once daily Nicotine Discontinued 0 TD .[facility] 56 August 27, 2021 12:00am August 26, 2022 11:06am apply 1-21 mg NICOTINE PATCH daily for 28 days; follow with 1-14 mg PATCH daily for 14 days, then 1-7mg PATCH daily for 14 days transdermal Start: 08-27-2021 apply 1 dose transde rmal route once daily, then apply 1 dose transdermal route once daily Nicotine Active 0 TD .[facility] 56 August 27, 2021 12:00am apply 1-21 mg NICOTINE PATCH daily for 28 days; follow with 1-14 mg PATCH daily for 14 days, then 1-7mg PATCH daily for 14 days transdermal Start: 07-05-2019 End: 01-23-2020 apply 1 dose transdermal route every twenty-four hours Nicotine 14 mg/24 hr patch 24 hour Discontinued 1 NMA TD DAILY 09 08July 05, 2019 1:00am January 23, 2020 9:06am Start: 07-05-2019 End: 01-23-2020 apply 1 dose transdermal route once daily Nicotine Discontinued 1 PATCH TD DAILY July 05, 2019 1:00am January 23, 2020 9:06am Start: 11-27-2015 End: 07-10-2016 EQ NICOTINE POLACRILEX 4 MG GUM One piece q2 hours PRN smoking urges NICOTINE POLACRILEX [id number] Huber TORRES Non-Formulary Medication (2 sources) Start: 08-19-2023 End: 08-20-2023 2 puff, Inhalation, 2 times daily, First dose on Thu08/19/23 at 2145, Drug Name: Annalisa Rome, Form: inhaler, Length of Therapy: Indefinite, How soon needed? (normally 72 hrs needed to procure): 0-24 hrs, Reason for Non-Formulary: Pt preference/supplied, On hold since Thu08/19/2023 at 2322 until manually unheld Tiotropium-Olodaterol (14 sources) Anticholinergic , beta2-Adrenergi c Agonist Start: 01-28-2022 End: 03-05-2022 Tiotropium-Olodaterol (Stiolto Respimat) 2.5-2.5 mcg/actuation mist Discontinued 2 NMA INHALATION DAILY 4 January 28, 2022 12:00am March 05, 2022 10:44am Start: 01-28-2022 End: 03-05-2022 Tiotropium-Olodaterol (Stiol to Respimat) 2.5-2.5 mcg/actuation mist Discontinued 2 NMA INHALATION DAILY January 28, 2022 12:00am March 05, 2022 10:44am Start: 01-28-2022 End: 03-05-2022 Tiotropium-Olodaterol (Stiol to Respimat) 2.5-2.5 mcg/actuation mist Discontinued 2 PUFF INHALATION DAILY January 28, 2022 12:00am March 05, 2022 10:44am OMEGA-3 FATTY ACIDS (1 source) Start: 09-26-2016 take 1 tablet by mouth once daily OMEGA 3 340 MG CPDR One tablet by mouth daily OMEGA-3 FATTY ACIDS [id number] Olivia Meraz LPN Marion-3 Fatty Acids (7 sources) Start: 09-21-2018 End: 09-22-2018 take 1000 mg by mouth once daily Marion-3 Fatty Acids Discontinued 1000 MG PO daily September 21, 2018 12:00am September 22, 2018 11:08am Start: 09-21-2018 End: 09-22-2018 take 1000 mg by mouth once daily Marion-3 Fatty Acids Discontinued 1000 MG PO daily September 20, 2018 11:00pm September 22, 2018 10:08am Marion-3 Fatty Acids 1,000 mg capsule (7 sources) Start: 09-21-2018 End: 09-22-2018 take 1 capsule by mouth once daily Marion-3 Fatty Acids 1,000 mg capsule Discontinued 1000 mg PO daily 0 September 21, 2018 12:00am September 22, 2018 11:08am Start: 09-21-2018 End: 09-22-2018 take 1 capsule by mouth once daily Marion-3 Fatty Acids 1,000 mg capsule Discontinued 1000 mg PO daily September 21, 2018 12:00am September 22, 2018 11:08am ondansetron ODT (Zofran-ODT) disintegrating tablet 4 mg (2 sources) Start: 08-19-2023 End: 08-20-2023 take 1 tablet by mouth every eight hours as needed for nausea and vomiting ondansetron ODT (Zofran-ODT) disintegrating tablet 4 mg oxyCODONE (2 sources) Opioid Agonist Start: 08-19-2023 End: 08-20-2023 take 1 tablet by mouth every four hours as needed for pain oxyCODONE (Roxicodone) immediate release tablet 2.5 mg predniSONE 10 mg oral tablet (20 sources) Start: 12-27-2024 End: 02-07-2025 Prednisone 10 mg tablet Discontinued 10 mg PO daily 30 0 December 27, 2024 12:00am February 07, 2025 9:11am take 4 tabs for three days, then 3 tabs for three days, then 2 tabs for three days, then 1 tab for 3 days Start: 07-22-2022 End: 08-26-2022 Prednisone 10 mg tablet Disc ontinued 10 mg PO daily 30 0 July 22, 2022 1:00am August 26, 2022 12:06pm Stage 3 severe COPD by GOLD classification Chronic obstructive pulmonary disease, unspecified take 4 tabs for three days, then 3 tabs for three days, then 2 tabs for three days, then 1 tab for 3 days Start: 09-22-2019 End: 10-19-2019 Prednisone 10 mg tablet Disc ontinued 10 mg PO daily 30 0 September 22, 2019 12:00am October 19, 2019 9:28am take 4 tabs for three days, then 3 tabs for three days, then 2 tabs for three days, then 1 tab for 3 days Start: 07-05-2019 End: 09-13-2019 Prednisone 10 mg tablet Disc ontinued 10 mg PO daily 30 0 July 05, 2019 1:00am September 13, 2019 12:19pm take 4 tabs for three days, then 3 tabs for three days, then 2 tabs for three days, then 1 tab for 3 days End: 05-23-2015 take 1 tablet by mouth twice daily, then take 0.5 tablet by mouth PREDNISONE (RONY) 10 MG ORAL TABS 1 tablet twice daily x 3 days, daily c 3 days, 1/2 x 3 days PREDNISONE [id number] Monica Jarrell 10 actuat tiotropium 0.0025 mg/actuat inhalation spray (20 sources) Anticholinergic Start: 08-19-2023 End: 08-20-2023 take 2 puff(s) by inhalation once daily 2 puff, Inhalation, Daily, First dose on Thu08/19/23 at 2014 Start: 05-19-2019 End: 10-19-2019 take 2.5 ug by inhalation once daily Tiotropium Center Line (Spiriva Respimat) 2.5 mcg/actuation mist Discontinued 2 NMA INHALATION daily 07 18May 19, 2019 7:28am October 19, 2019 9:27am administer at approximately the same time(s) each day Start: 05-19-2019 End: 10-19-2019 take 2.5 ug by inhalation once daily Tiotropium Center [place] (Spiriva Respimat) 2.5 mcg/actuation mist Discontinued 2 NMA INHALATION daily May 19, 2019 7:28am October 19, 2019 9:27am administer at approximately the same time(s) each day Start: 05-19-2019 End: 10-19-2019 take 1 puff(s) by inhalation once daily Tiotropium [place] (Spiriva Respimat) 2.5 mcg/actuation mist Discontinued 2 PUFF INHALATION daily May 19, 2019 7:28am October 19, 2019 9:27am administer at approximately the same time(s) each day Start: 05-19-2019 End: 10-19-2019 take 1 puff(s) by inhalation once daily Tiotropium [place] (Spiriva Respimat) 2.5 mcg/actuation mist Discontinued 2 PUFF INHALATION daily May 19, 2019 6:28am October 19, 2019 8:27am administer at approximately the same time(s) each day Start: 02-28-2019 End: 05-19-2019 take 2.5 ug by inhalation once daily Tiotropium [place] (Spiriva Respimat) 2.5 mcg/actuation mist Discontinued 2 NMA INHALATION daily 07 18February 28, 2019 12:00am May 19, 2019 7:28am administer at approximately the same time(s) each day Start: 02-28-2019 End: 05-19-2019 take 2.5 ug by inhalation once daily Tiotropium [place] (Spiriva Respimat) 2.5 mcg/actuation mist Discontinued 2 NMA INHALATION daily February 28, 2019 12:00am May 19, 2019 7:28am administer at approximately the same time(s) each day Start: 02-28-2019 End: 05-19-2019 take 1 puff(s) by inhalation once daily Tiotropium [place] (Spiriva Respimat) 2.5 mcg/actuation mist Discontinued 2 PUFF INHALATION daily February 28, 2019 12:00am May 19, 2019 7:28am administer at approximately the same time(s) each day Start: 02-28-2019 End: 05-19-2019 take 1 puff(s) by inhalation once daily Tiotropium Center [place] (Spiriva Respimat) 2.5 mcg/actuation mist Discontinued 2 PUFF INHALATION daily February 27, 2019 11:00pm May 19, 2019 6:28am administer at approximately the same time(s) each day Start: 09-21-2018 End: 09-22-2018 take 2.5 ug by inhalation once daily Tiotropium [place] (Spiriva Respimat) 2.5 mcg/actuation mist Discontinued 2 NMA INHALATION DAILY September 21, 2018 12:00am September 22, 2018 11:07am Start: 09-21-2018 End: 09-22-2018 take 1 puff(s) by inhalation once daily Tiotropium [place] (Spiriva Respimat) 2.5 mcg/actuation mist Discontinued 2 PUFF INHALATION DAILY September 21, 2018 12:00am September 22, 2018 11:07am Start: 09-21-2018 End: 09-22-2018 take 1 puff(s) by inhalation once daily Tiotropium [place] (Spiriva Respimat) 2.5 mcg/actuation mist Discontinued 2 PUFF INHALATION DAILY September 20, 2018 11:00pm September 22, 2018 10:07am Start: 11-03-2016 take 2 puff(s) by in halation once daily SPIRIVA RESPIMAT 2.5 MCG/ACT AERS 2 puffs INH daily TIOTROPIUM BROMIDE MONOHYDRATE [id number] Leighton Ruiz 7 actuat umeclidinium 0.0625 mg/actuat / vilanterol 0.025 mg/actuat dry powder inhaler (15 sources) Anticholinergic, beta2-Adrenergic Agonist Start: 09-21-2018 End: 09-22-2018 Umeclidinium-Vilanterol (Anoro Ellipta) 62.5-25 mcg/actuation blister with device Discontinued 1 NMA INHALATION Q24H September 21, 2018 12:00am September 22, 2018 11:07am Start: 09-21-2018 End: 09-22-2018 Umeclidinium-Vilanterol (Ano ro Ellipta) 62.5-25 mcg/actuation blister with device Discontinued 1 INH INHALATION Q24H September 21, 2018 12:00am September 22, 2018 11:07am Start: 04-22-2017 take 1 puff(s) by inhalation once daily ANORO ELLIPTA 62.5-25 MCG/INH AEPB 1 puff INH daily UMECLIDINIUM-VILANTEROL [id number] Carol Casillas CNP varenicline 1 mg oral tablet (20 sources) Partial Cholinergic Nicotinic Agonist Start: 06-23-2023 End: 06-24-2024 take 1 tablet by mouth twice daily, then take 1 tablet by mouth once Varenicline Tartrate (Chantix Continuing Month Box) 1 mg tablet Discontinued 1 mg PO TWICE A DAY 30 3 June 23, 2023 1:00am June 24, 2024 9:33am Start: 06-23-2023 End: 02-07-2025 take 1 tablet by mouth once Varenicline Tartrate (Fuentes tix Starting Box) 0.5 mg (11)- 1 mg (42) tablets,dose pack Discontinued 0 PO per package directions 53 0 June 23, 2023 1:00am February 07, 2025 9:11am PO PER PKG DIR Start: 01-23-2020 End: 02-29-2020 take 1 tablet by mouth once Varenicline Tartrate (Fuentes tix Starting Box) 0.5 mg (11)- 1 mg (42) tablets,dose pack Discontinued 0 PO per package directions 53 0 January 23, 2020 12:00am February 29, 2020 8:10am PO PER PKG DIR Varenicline Tartrate (Chantix Starting Box) 0.5 mg (11)- 1 mg (42) tablets,dose pack (6 sources) Start: 06-23-2023 End: 02-07-2025 take 1 tablet by mouth once Varenicline Tartrate (Chantix Starting Box) 0.5 mg (11)- 1 mg (42) tablets,dose pack Discontinued 0 PO per package directions 53 0 June 23, 2023 1:00am February 07, 2025 9:11am PO PER PKG DIR Start: 06-23-2023 take 1 tablet by mouth once Va renicline Tartrate (Chantix Starting Box) 0.5 mg (11)- 1 mg (42) tablets,dose pack Active 0 PO per package directions 53 June 23, 2023 1:00am PO PER PKG DIR 24 hr venlafaxine 150 mg extended release oral capsule (2 sources) Serotonin and Norepinephrine Reuptake Inhibitor End: 10-31-2015 take 1 tablet by mouth once daily EFFEXOR XR 150 MG [id number] One tablet by mouth daily VENLAFAXINE HCL [id number] Monica Jarrell Problems Active Problems Problem Classification Problem Date Documented Da te Episodic/Chronic Asthma (18 sources) Asthma-chronic obstructive pulmonary disease overlap syndrome; Translations: [Asthma-chronic obstructive pulmonary disease overlap syndrome] 12-30-2018 Chronic Chronic obstructive pulmonary disease and bronchiectasis (20 sources) Moderate chronic obstructive pulmonary disease; Translations: [Asthma-chronic obstructive pulmonary disease overlap syndrome] Onset: 05-23-2015 05-23-2015 Chronic Comment on above: FEV1 38% Coronary atherosclerosis and other heart disease (1 source) Prinzmetal angina; 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] Onset: 11-27-2015 11-27-2015 Chronic Immunizations and screening for infectious disease (1 source) Encounter for immunization; Translations: [Encounter for immunization] Onset: 03-28-2025 Episodic Melanomas of skin (14 sources) Malignant melanoma; Translations: [Malignant melanoma of skin, unspecified] 09-22-2018 Chronic Mood disorders (14 sources) Depressive disorder; Translations: [Depression] 09-22-2018 Chronic Nonspecific chest pain (9 sources) Chest pain; Translations: [Tight chest] Onset: 11-27-2015 Resolved: 12-07-2015 11-27-2015 Episodic Other lower respiratory disease (11 sources) Dyspnea; Translations: [Shortness of breath] 10-02-2022 Episodic Other lower respiratory disease (7 sources) Shortness of breath; Translations: [Shortness of breath] Onset: 02-07-2025 10-02-2022 Episodic Other screening for suspected conditions (not mental disorders or infectious disease) (10 sources) Cardiovascular stress test abnormal; Translations: [Abnormal result of other cardiovascular function study] Onset: 06-30-2024 12-24-2022 Episodic Spondylosis; intervertebral disc disorders; other back problems (20 sources) Sciatica; Translations: [Spinal stenosis] Onset: 10-31-2015 10-31-2015 Episodic Substance-related disorders (20 sources) Tobacco dependence syndrome; Translations: [Nicotine dependence] Onset: 01-16-2015 01-16-2015 Chronic Comment on above: Ordered to repeat De cember 2024 Past or Other Problems Problem Classification Problem Date Documented Da te Episodic/Chronic Deficiency and other anemia (1 source) Iron deficiency anemia, unspecified; Translations: [Iron deficiency anemia, unspecified] Onset: 10-26-2024 Episodic Other connective tissue disease (1 source) Fibromyositis; Translations: [Fibromyalgia] Onset: 10-31-2015 12-02-2015 Episodic Other connective tissue disease (1 source) Pain in lower limb; Translations: [Pain in right leg] Onset: 10-31-2015 10-31-2015 Episodic Other lower respiratory disease (2 sources) Chronic cough; Translations: [Cough] Onset: 01-16-2015 Resolved: 05-23-2015 05-23-2015 Episodic Other upper respiratory disease (1 source) Pain in throat; Translations: [Acute pharyngitis, unspecified] Onset: 07-10-2016 07-10-2016 Episodic Other upper respiratory infections (1 source) Acute upper respiratory infection; Translations: [Acute upper respiratory infection, unspecified] Onset: 07-08-2016 07-14-2016 Episodic Residual codes; unclassified (1 source) Hypersomnia; Translations: [Hypersomnia, unspecified] Onset: 01-16-2015 01-16-2015 Episodic Results Test Name Value Interpretation Reference Range Facility Pulmonary Visit Reporton Pulmonary Visit Report [facility] Pulmonary Medicine [address] [place] [address] OFFICE VISIT Date of Service: 03/28/25 MR#: [id number] Acct: [id number] Name: VIOLETTA LINDER Rep #: [id number] : 1960 Provider: Sandra Soriano NP Age/Sex: 65/F Location: [facility] Status: Signed Assessment and Plan Assessment and Plan (1) Asthma-COPD overlap syndrome: Status: Chronic Plan: Uncontrolled. She continues to have break through symptoms despite full compliance with triple therapy. I am not convinced that budesonide nebulized produced a side effect that lasted for 3 weeks from using it once. I have recommended that she use nasal saline spray for her nasal dryness. She should stop the budesonide at this time. Historically, NIOX has not been a helpful indicator for this patient and today continues to indicate that she is in a normal range despite abnormal exam and current respiratory symptoms. CBC did not show the presence of peripheral eosinophilia for a biologic to be added at this time. I do believe that the patient's significant GI symptoms that she is experiencing are contributing to suboptimal control of her respiratory symptoms. She should notify this practice if she has worsening respiratory symptoms. (2) Smoking greater than 30 pack years: Status: Chronic Comment: Ordered to repeat June 2025 Plan: Continue to encourage complete smoking cessation. The patient remains appropriate for annual LDCT which will be due in June 2025, previously ordered. Orders: Orders NIOX Today J44.9 - Chronic obstructive pulmonary disease, unspecified Influenza Immunization Today J44.9 - Chronic obstructive pulmonary disease, unspecified, Z23 - Encounter for immunization Medications: New omeprazole 30 min before breakfast and 45 min before dinner 20 mg PO BID 60 caps 3RF J44.9 - Chronic obstructive pulmonary disease, unspecified Refilled yjtgmytnpv-seopoxpd-izrjstth ol 160-9-4.8 mcg/actuation (Breztri Aerosphere) 2 inhalations inhalation BID 3 ea 3RF Discontinued budesonide Discontinued Reason: Order Changed 0.5 mg (2 mL) inhalation QDAY 60 mL 5RF J44.9 - Chronic obstructive pulmonary disease, unspecified Plan I am concerned that she may have a suboptimal control of acid reflux which could be contributing to respiratory symptoms especially wheezing and cough. I have recommended that she trial a PPI and utilize it 30 minutes before breakfast and 45 minutes before dinner. I have also recommended that she follow-up with GI at this time. She may benefit from further testing. The patient believes that she does have a colonoscopy that is due soon. Fax office visit note to Dr. Negro. Plan Details Additional Comments: This note was generated with Damballa dictation software. It may contain incorrect words, spelling, and punctuation that were not noted in checking the note before signing. Follow Up: 4 Months (LMR) HPI HPI Comments Details: This 65-year-old female patient presents to the office today for follow-up of her asthma/COPD overlap syndrome. She is ambulatory and currently on room air. She has not been seen in the local ER or urgent care for respiratory symptoms. She has not needed oral prednisone or antibiotics since last office visit. She does report compliant with use of Breztri 2 puffs twice daily. She did utilize budesonide nebulized once 3 weeks ago and reports that she had a dry nose and nosebleed so stopped using therapy. She is experiencing a dry nose still. She does have shortness of breath with exertion. She reports that she has been exposed to significant amount of dust. She does report a cough with white thick sputum. She endorses wheeze and occasional chest tightness. Her albuterol HFA is not beneficial but her nebulized albuterol does improve her respiratory symptoms. She is on a russo supplement to help with chest congestion and reports that congestion is still occurring despite the use of this supplement. She also takes a pill from the chiropractor to help her get that junk out . She continues to smoke cigarettes, 1/2 pack/day. She was not able to tolerate Chantix. She reports that she has been hypnotized 3 times. She indicates that she has tried various other smoking cessation tactics without benefit. She was changed from Cymbalta to Prozac and is hoping that this will help stabilize her mood but did not have feelings. She is now on Effexor. She also denies fever, chills or body aches. She does experience mid epigastric pain especially after she has eaten a large meal. She reports that she feels active acid reflux occurring. Low-dose screening lung CT from June 15, 2024 shows No suspicious nodules are seen. Emphysematous changes. Stable apical bilateral scarring. Recommended 12-month annual screening CT. BRIAN (more content not included)... Normal [facility] Absolute lymphocyte countOrd ered By: CHATO Sandra Christie on 03-21-2025 Lymphocytes Auto (Unsp spec) [#/Vol] 1.66 10*3/uL 0.83-4.51 [facility] Absolute neutrophil countOrd ered By: CHATO Sandraanusha Soriano on 03-21-2025 Neutrophils (Bld) [#/Vol] 5.4 10*3/uL 2.0-7.7 [facility] Automated lymphocyte count a s percentage of total leukocytesOrdered By: CHATO Sandra Celestinevikasvianca on 03-21-2025 Lymphocytes/100 WBC Auto (Unsp spec) 20.8 % 19-41 [facility] Basophil percentageOrdered B y: CHATO Sandra Christie on 03-21-2025 Basophils/100 WBC (Bld) 0.6 % 0-1 [facility] CBC W/Diff, Automatedon Absolute Lymph 1.66 X10 3/uL Normal 0.83-4.51 [facility] Comment on above: Performed By: #### L 100.0100 ####[facility] [address] [place], [place], [id number] Absolute Neut 5.4 X10 3/uL Normal 2.0-7.7 [facility] Comment on above: Performed By: #### L 100.0100 ####[facility] [address] [place], [address] Basophils/100 WBC (Bld) 0.6 % Normal 0-1 [facility] Comment on above: Performed By: #### L 100.0100 ####[facility] [address] [place], [address] Eosinophils/100 WBC (Bld) 1.3 % Normal 0-5 [facility] Comment on above: Performed By: #### L 100.0100 ####[facility] [address] [place], [address] Erythrocyte distribution width (RBC) [Ratio] 13.0 % Normal 11.6-14.6 [facility] Comment on above: Performed By: #### L 100.0100 ####[facility] [address] [place], [address] Hematocrit (Bld) [Volume fraction] 45.7 % Normal 37-47 [facility] Comment on above: Performed By: #### L 100.0100 ####[facility] [address] [place], [address] Hemoglobin (Bld) [Mass/Vol] 14.8 g/dL Normal 12.0-15.0 [facility] Comment on above: Performed By: #### L 100.0100 ####[facility] [address] [place], [address] IG% 0.400 Normal 0.0-0.9 [facility] Comment on above: Result Comment: IG% - Immature Granulocytes (promyelocytes, myelocytes and metamyelocytes) > 1% indicates that a LEFT SHIFT is Present. Performed By: #### L 100.0100 ####[facility] [address] [place], [address] Lymphocytes/100 WBC (Bld) 20.8 % Normal 19-41 [facility] Comment on above: Performed By: #### L 100.0100 ####[facility] [address] [place], [address] MCH (RBC) [Entitic mass] 30.8 pg Normal 27.0-32.0 [facility] Comment on above: Performed By: #### L 100.0100 ####[facility] [address] [place], [address] MCHC (RBC) [Mass/Vol] 32.4 g/dL Normal 32-36 [facility] Comment on above: Performed By: #### L 100.0100 ####[facility] [address] [place], [address] MCV (RBC) [Entitic vol] 95.2 fL Normal 81-99 [facility] Comment on above: Performed By: #### L 100.0100 ####[facility] [address] [place], [address] Monocytes/100 WBC (Bld) 8.9 % Normal 0-10 [facility] Comment on above: Performed By: #### L 100.0100 ####[facility] [address] [place], [address] Neutrophils/100 WBC (Bld) 68.0 % Normal 47-70 [facility] Comment on above: Performed By: #### L 100.0100 ####[facility] [address] [place], [address] Nucleated RBC (Bld) [#/Vol] 0 10*3/uL Normal 0-5 [facility] Comment on above: Performed By: #### L 100.0100 ####[facility] [address] [place], [address] Platelet mean volume (Bld) [Entitic vol] 9.5 fL Normal 6.2-12.0 [facility] Comment on above: Performed By: #### L 100.0100 ####[facility] [address] [place], [address] Platelets (Bld) [#/Vol] 284 10*3/uL Normal 150-450 [facility] Comment on above: Performed By: #### L 100.0100 ####[facility] [address] [place], [address] RBC (Bld) [#/Vol] 4.80 10*6/uL Normal 4.2-5.4 [place] Comment on above: Performed By: #### L 100.0100 ####[facility] [address] [place], [address] RDW SD 45.5 fl High 35.1-43.9 [facility] Comment on above: Performed By: #### L 100.0100 ####[facility] [address] [place], [address] WBC (Bld) [#/Vol] 8.0 10*3/uL Normal 4.4-11.0 [facility] Comment on above: Performed By: #### L 100.0100 ####[facility] [address] [place], [address] Eosinophil percentageOrdered By: CHATO Soriano on 03-21-2025 Eosinophils/100 WBC (Bld) 1.3 % 0-5 [facility] Erythrocyte distribution wid th ratioOrdered By: CHATO Soriano on 03-21-2025 Erythrocyte distribution width (RBC) [Ratio] 13.0 % 11.6-14.6 [facility] Erythrocyte distribution wid th standard deviationOrdered By: CHATO Soriano on 03-21-2025 Erythrocyte distribution width (RBC) [Ratio] 45.5 fl High 35.1-43.9 [facility] Hematocrit Auto (Bld) [Volum e fraction]Ordered By: CHATO Soriano on 03-21-2025 Hematocrit (Bld) [Volume fraction] 45.7 % 37-47 [facility] Hemoglobin measurementOrdere d By: CHATO Soriano on 03-21-2025 Hemoglobin (Bld) [Mass/Vol] 14.8 g/dL 12.0-15.0 [facility] Immature granulocytes/100 WB C Auto (Bld)Ordered By: CHATO Soriano on 03-21-2025 Immature granulocytes/100 WBC (Bld) 0.400 % 0.0-0.9 [facility] Comment on above: IG% - Immature Granu locytes (promyelocytes, myelocytes and metamyelocytes) > 1% indicates that a LEFT SHIFT is Present. MCV (mean corpuscular volume ) determinationOrdered By: CHATO Soriano on 03-21-2025 MCV (RBC) [Entitic vol] 95.2 fL 81-99 [facility] Mean corpuscular hemoglobin (MCH) determinationOrdered By: CHATO Soriano on 03-21-2025 MCH (RBC) [Entitic mass] 30.8 pg 27.0-32.0 [facility] Mean corpuscular hemoglobin concentration (MCHC) determinationOrdered By: CHATO Soriano on 03-21-2025 MCHC (RBC) [Mass/Vol] 32.4 g/dL 32-36 [facility] Mean platelet volume determi nationOrdered By: CHATO Soriano on 03-21-2025 Platelet mean volume (Bld) [Entitic vol] 9.5 fL 6.2-12.0 [facility] Monocyte percentageOrdered B y: CHATO Soriano on 03-21-2025 Monocytes/100 WBC (Bld) 8.9 % 0-10 [facility] Neutrophil percentageOrdered By: CHATO Soriano on 03-21-2025 Neutrophils/100 WBC (Bld) 68.0 % 47-70 [facility] Nucleated red blood cell per centageOrdered By: CHATO Soriano on 03-21-2025 Nucleated RBC/100 WBC (Bld) [Ratio] 0 % 0-5 [facility] Platelet countOrdered By: CHATO Soriano on 03-21-2025 Platelets (Bld) [#/Vol] 284 10*3/uL 150-450 [facility] RBC Auto (Bld) [#/Vol]Ordere d By: CHATO Soriano on 03-21-2025 RBC (Bld) [#/Vol] 4.80 10*6/uL 4.2-5.4 [place] White blood cell (WBC) count Ordered By: CHATO Soriano on 03-21-2025 WBC (Bld) [#/Vol] 8.0 10*3/uL 4.4-11.0 [facility] Pulmonary Visit Reporton Pulmonary Visit Report [facility] [place] [address] [place] [address] OFFICE VISIT Date of Service: 02/07/25 MR#: [id number] Acct: [id number] Name: VIOLETTA LINDER Rep #: [id number] : 1960 Provider: Sandra Soriano NP Age/Sex: 64/F [place] [facility] Status: Signed Assessment and Plan Assessment and Plan (1) Asthma-COPD overlap syndrome: Status: Chronic Plan: Uncontrolled. She continues to have break through symptoms despite full compliance with triple therapy. I have recommended that she begin budesonide nebulized once daily for a trial to determine if this helps control symptoms. Historically, NIOX has not been a helpful indicator for this patient and today continues to indicate that she is in a normal range despite abnormal exam and current respiratory symptoms. Her respiratory symptoms have been responsive to prednisone in the past. Instead of another round of oral prednisone I will await the response to budesonide nebulized. CBC to evaluate for elevated eosinophilic count to consider adding Dupixent. The patient is agreeable to this plan. She should notify this practice if she has worsening respiratory symptoms. (2) Smoking greater than 30 pack years: Status: Chronic Comment: Ordered to repeat June 2025 Plan: Continue to encourage complete smoking cessation. The patient remains appropriate for annual LDCT which will be due in June 2025, previously ordered. Orders: Orders NIOX Today J43.2 - Centrilobular emphysema CBC W/Diff, Automated Today J44.9 - Chronic obstructive pulmonary disease, unspecified, R06.02 - Shortness of breath Medications: New budesonide 0.5 mg (2 mL) inhalation QDAY 60 mL 5RF J44.9 - Chronic obstructive pulmonary disease, unspecified Plan I am concerned that she may have a suboptimal control of acid reflux which could be contributing to respiratory symptoms especially wheezing cough. I have recommended that she obtain an OTC PPI and utilize it 30 minutes before breakfast. If this provides her with benefit then she should follow-up with PCP for further management. Plan Details Additional Comments: This note was generated with Damballa dictation software. It may contain incorrect words, spelling, and punctuation that were not noted in checking the note before signing. Follow Up: 8-10 weeks (LMR) HPI HPI Comments Details: This 64-year-old female patient presents to the office today for follow-up of her asthma/COPD overlap syndrome. She is ambulatory and currently on room air. At last office visit she was given a taper course of oral prednisone and she indicates that it provided her with significant benefit. Since that taper of prednisone she has not required additional oral prednisone or antibiotics for respiratory illness. She has not been seen in the local ER or urgent care for respiratory symptoms. She does report compliant with use of Breztri 2 puffs twice daily. She rinses her mouth out after each use. She is not having difficulty with sore throat or thrush. She indicates that she feels like it would be helpful to have another inhalation during the day of this inhaler. Her albuterol HFA is not beneficial but her nebulized albuterol does improve her respiratory symptoms. She is on a russo supplement to help with chest congestion and reports that congestion is still occurring despite the use of this supplement. She also takes a pill from the chiropractor to help her get that junk out . She continues to smoke cigarettes, 1/2 pack/day. She was not able to tolerate Chantix. She reports that she has been hypnotized 3 times. She indicates that she has tried various other smoking cessation tactics without benefit. She was changed from Cymbalta to Prozac and is hoping that this will help stabilize her mood but did not have feelings. She is now on Effexor. She reports that she is always short of breath on exertion and that her air is getting trapped. She does have a cough with wheeze and white sputum. She denies any hemoptysis. She denies chest tightness, chest pain or palpitations. She also denies fever, chills or body aches. Low-dose screening lung CT from June 15, 2024 shows No suspicious nodules are seen. Emphysematous changes. Stable apical bilateral scarring. Recommended 12-month annual screening CT. Documentation reviewed with patient today includes: PA and lateral chest x-ray from December 27, 2024 which showed hyperinflation but clear lungs. Sputum for culture from December 27, 2024 showed mixed normal respiratory jennifer. Intake Vital Signs 12/27/24 07:28 02/07/25 07:23 Height 5 ft 4 in 5 ft 4 in Weight: 150 lb BMI 25.7 BP 119/78 Blood Pressure Location Rt brachial Position Sitting Respiration 20 H Pulse 76 Pulse Source Monitor Temp 9 (more content not included)... Normal [facility] Gram Stainon 12-28-2024 GS Acceptable Specimen? Yes (<25 Epithelial cells per/lpf) Gram Stain 2+ Gram positive rods 2+ Gram positive cocci 1+ Epithelial cells 1+ White Blood Cells Normal [facility] Comment on above: Performed By: #### M 100.1999, M100.2400 #### [facility] Laboratory [address] [place], [address] Respiratory Cultureon 2024 RESPC Mixed normal respira tory jennifer. No Streptococcus pneumoniae, beta-hemolytic Streptococcus or Staphylococcus aureus isolated. Normal [facility] Comment on above: Performed By: #### M 100.2000, M100.2400 #### [facility] [address] [place], [address] Chest PA and Lateralon 12-27 Chest PA and Lateral [facility] [address] [place] [address] Chest PA and Lateral MR#: [id number] Acct: [id number] Name: VIOLETTA LINDER Rep #: [id number] : 1960 F 64 From: Gabe pfeiffer MD PCP: Dr. Beata Schwarz MD Status: DEP AMB Study: Chest PA and Lateral Date of Exam: 12/27/24 Exam# [id number] Ordering Dr: Sandra Soriano FOREMAN/PILE DRIVING AND ERECTION- C PROCEDURE: CHEST PA AND LATERAL 12/27/2024 REASON FOR EXAM: SHORTNESS OF BREATH TECHNIQUE: CHEST PA AND LATERAL COMPARISON: Prior study dated November 14, 2024. FINDINGS: Hardware: None Heart: The heart size is normal. Mediastinum: The mediastinal contour is unremarkable. Lungs: Hyperinflation. Lungs are clear. Bones: The bones are unremarkable. RAD/Chest PA and Lateral IMPRESSION: Hyperinflation. The lungs are clear. Reading Location: [place] [address] CC: Dr. Beata Schwarz MD; Sandra Soriano NP Airplane Engineer: Signed Normal [facility] Gram stainOrdered By: CHATO Soriano on 12-27-2024 Microscopic observation Gram stain Nom (Unsp spec) [facility] Microbial respiratory cultur eOrdered By: CHATO Soriano on 12-27-2024 Microorganism identified Cx Nom (Unsp spec) or Staphylococcus aureus isolated. [facility] Pulmonary Visit Reporton Pulmonary Visit Report [facility] [place] [address] [place] [address] OFFICE VISIT Date of Service: 12/27/24 MR#: [id number] Acct: [id number] Name: VIOLETTA LINDER Rep #: [id number] : 1960 Provider: Sandra Soriano NP Age/Sex: 64/F Location[place] [facility] [place] Status: Signed Assessment and Plan Assessment and Plan (1) Asthma-COPD overlap syndrome: Status: Chronic Plan: Uncontrolled. NIOX today is 11 which she suggest that her asthma is not exacerbating although I do believe that her respiratory symptoms have not returned back to baseline which is likely from suboptimal length of treatment with initial course of oral prednisone. There is evidence of bronchospasm by exam today. I have recommended that she complete a taper course of oral prednisone. Due to recent use of Levaquin approximately 5 weeks ago I have recommended that she complete a sputum culture today to determine if additional antibiotic therapy is warranted along with a PA and lat Chest xray. Antimicrobial therapy will be considered pending these results. Continue current maintenance medication, Breztri which has been refilled today. I have recommended that she begin Mucinex once daily along with ipratropium albuterol nebulized every 4-6 hours. The patient has been cautioned about overuse of this inhaler. I have asked for her to use it only as prescribed. (2) Smoking greater than 30 pack years: Status: Chronic Comment: Ordered to repeat June 2025 Plan: Continue to encourage complete smoking cessation. The patient remains appropriate for annual LDCT which will be due in June 2025, previously ordered. Orders: Orders Chest PA and Lateral Today J44.9 - Chronic obstructive pulmonary disease, unspecified Culture, Sputum Today J44.9 - Chronic obstructive pulmonary disease, unspecified Medications: New guaifenesin ER (Mucinex) 1,200 mg PO .QD 90 tabs 3RF prednisone take 4 tabs for three days, then 3 tabs for three days, then 2 tabs for three days, then 1 tab for 3 days 10 mg PO QDAY 30 tabs 0RF ipratropium-albuterol 0.5 mg-3 mg(2.5 mg base)/3 mL 3 mL inhalation Q4-6H PRN 180 mL 6RF shortness of breath or wheezing J44.9 - Chronic obstructive pulmonary disease, unspecified Refilled izevycmmcj-veybnjjk-egjocbxr ol 160-9-4.8 mcg/actuation (Breztri Aerosphere) 2 inhalations inhalation BID 3 ea 3RF Plan Details Follow Up: 6 Weeks (LMR) HPI HPI Comments Details: This 64-year-old female patient presents to the office today for follow-up of her asthma/COPD overlap syndrome. She is ambulatory and currently on room air. She was recently prescribed Levaquin and prednisone by PCP in the beginning of November for respiratory illness. She underwent a PA and lateral chest x-ray on November 14, 2024 which showed mild hazy opacities in the lower lung zones. She does not feel like she has returned to baseline in regards to her respiratory symptoms. She does report compliant with use of Breztri 2 puffs twice daily. She rinses her mouth out after each use. She is not having difficulty with sore throat or thrush. She is asking for a refill of this inhaler today. She does have albuterol HFA which she believes is not beneficial and is wondering if there is an alternative. She indicates that she has nebulized albuterol therapy at home but these are not used often because it does not help with her symptoms. She is on a russo supplement to help with chest congestion and reports that congestion is still occurring despite the use of this supplement. She continues to smoke cigarettes, 1/2 pack/day. She was not able to tolerate Chantix. She reports that she has been hypnotized 3 times. She indicates that she has tried various other smoking cessation tactics without benefit. She reports that she would like to stop smoking cigarettes. Smoking cessation was discussed at length at last visit. One month ago she was changed from Cymbalta to Prozac and is hoping that this will help stabilize her mood. She reports that she is always short of breath on exertion. She does have a cough with wheeze and white to yellow sputum. She denies any hemoptysis. She denies chest tightness, chest pain or palpitations. She also denies fever, chills or body aches. Low-dose screening lung CT from June 15, 2024 shows No suspicious nodules are seen. Emphysematous changes. Stable apical bilateral scarring. Recommended 12-month annual screening CT. At last follow-up the patient declined a PFT and 6-minute walk test for today's visit. Intake Vital Signs 06/24/24 08:27 12/27/24 07:28 Height 5 ft 4 in 5 ft 4 in Weight: 150 lb BMI 25.7 BP 103/68 Blood Pressure Location Rt brachial Position Sitting Respiration 20 H Pulse 82 Pulse Source Monitor Temp 96.0 F L Temperature Source Tempor (more content not included)... Normal [facility] Chest PA and Lateralon 11-14 Chest PA and Lateral [facility] [address] [place] [address] Chest PA and Lateral MR#: [id number] Acct: [id number] Name: VIOLETTA LINDER Rep #: [id number] : 1960 F 64 From: August Selby i, MD PCP: Dr. Beata Schwarz MD Status: DEP AMB Study: Chest PA and Lateral Date of Exam: 11/14/24 Exam# [id number] Ordering Dr: Micki Laird FOREMAN/PILE DRIVING AND ERECTION-C PROCEDURE: CHEST PA AND LATERAL 11/14/2024 REASON FOR EXAM: RULE OUT PNEUMONIA TECHNIQUE: Frontal and lateral views of the chest. COMPARISON: Chest x-ray dated 12/30/2022. FINDINGS: Mild hazy opacities seen within the lungs particularly within the lower lung zones. No focal consolidation is seen. No pneumothorax. The heart is normal in size. There is no pleural effusion. There are no acute osseous abnormality is present. RAD/Chest PA and Lateral IMPRESSION: Mild hazy opacities seen within the lungs could represent infectious process in the appropriate clinical settings. No focal consolidation is seen. No pneumothorax is seen. Suggest follow-up. Reading Location: [id number] CC: FOREMAN/PILE DRIVING AND ERECTION-C Micki Laird; Dr. Beata Schwarz MD Airplane Engineer: Signed Normal [facility] Absolute lymphocyte countOrd ered By: Micki Laird on 10-21-2024 Lymphocytes Auto (Unsp spec) [#/Vol] 0.94 10*3/uL 0.83-4.51 [facility] Absolute neutrophil countOrd ered By: Micki Laird on 10-21-2024 Neutrophils (Bld) [#/Vol] 6.7 10*3/uL 2.0-7.7 [facility] Anion gap in Serum or Plasma Ordered By: Micki Laird on 10-21-2024 Anion gap [Moles/Vol] 12 mmol/L 5-15 [facility] Automated lymphocyte count a s percentage of total leukocytesOrdered By: Micki Laird on 10-21-2024 Lymphocytes/100 WBC Auto (Unsp spec) 11.1 % Low 19-41 [facility] BUN/creatinine ratioOrdered By: Micki Laird on 10-21-2024 Urea nitrogen/Creatinine [Mass ratio] 11.2 mg/mg 10-20 [facility] Basophil percentageOrdered B y: Micki Laird on 10-21-2024 Basophils/100 WBC (Bld) 0.5 % 0-1 [facility] Bilirubin, totalOrdered By: Micki Laird on 10-21-2024 Bilirubin [Mass/Vol] 0.41 mg/dL 0.00-1.30 [facility] CBC W/Diff, Automatedon 10-11 Absolute Lymph 0.94 X10 3/uL Normal 0.83-4.51 [facility] Comment on above: Performed By: #### L 500.4050, L503.6550, L503.6150, L100.0100 #### [facility] Laboratory [address] [place], [address] Absolute Neut 6.7 X10 3/uL Normal 2.0-7.7 [facility] Comment on above: Performed By: #### L 500.4050, L503.6550, L503.6150, L100.0100 #### [facility] [address] [place], [address] Basophils/100 WBC (Bld) 0.5 % Normal 0-1 [facility] Comment on above: Performed By: #### L 500.4050, L503.6550, L503.6150, L100.0100 #### [facility] [address] [place], [address] Eosinophils/100 WBC (Bld) 0.8 % Normal 0-5 [facility] Comment on above: Performed By: #### L 500.4050, L503.6550, L503.6150, L100.0100 #### [facility] [address] [place], [address] Erythrocyte distribution width (RBC) [Ratio] 13.4 % Normal 11.6-14.6 [facility] Comment on above: Performed By: #### L 500.4050, L503.6550, L503.6150, L100.0100 #### [facility] [address] [place], [address] Hematocrit (Bld) [Volume fraction] 43.1 % Normal 37-47 [facility] Comment on above: Performed By: #### L 500.4050, L503.6550, L503.6150, L100.0100 #### [facility] [address] [place], [address] Hemoglobin (Bld) [Mass/Vol] 14.3 g/dL Normal 12.0-15.0 [facility] Comment on above: Performed By: #### L 500.4050, L503.6550, L503.6150, L100.0100 #### [facility] [address] [place], [address] IG% 0.400 Normal 0.0-0.9 [facility] Comment on above: Result Comment: IG% - Immature Granulocytes (promyelocytes, myelocytes and metamyelocytes) > 1% indicates that a LEFT SHIFT is Present. Performed By: #### L 500.4050, L503.6550, L503.6150, L100.0100 #### [facility] [address] [place], [address] Lymphocytes/100 WBC (Bld) 11.1 % Low 19-41 [facility] Comment on above: Performed By: #### L 500.4050, L503.6550, L503.6150, L100.0100 #### [facility] [address] [place], [address] MCH (RBC) [Entitic mass] 31.0 pg Normal 27.0-32.0 [facility] Comment on above: Performed By: #### L 500.4050, L503.6550, L503.6150, L100.0100 #### [facility] [address] [place], [address] MCHC (RBC) [Mass/Vol] 33.2 g/dL Normal 32-36 [facility] Comment on above: Performed By: #### L 500.4050, L503.6550, L503.6150, L100.0100 #### [facility] [address] [place], [address] MCV (RBC) [Entitic vol] 93.5 fL Normal 81-99 [facility] Comment on above: Performed By: #### L 500.4050, L503.6550, L503.6150, L100.0100 #### [facility] [address] [place], [address] Monocytes/100 WBC (Bld) 8.4 % Normal 0-10 [facility] Comment on above: Performed By: #### L 500.4050, L503.6550, L503.6150, L100.0100 #### [facility] [address] [place], [address] Neutrophils/100 WBC (Bld) 78.8 % High 47-70 [facility] Comment on above: Performed By: #### L 500.4050, L503.6550, L503.6150, L100.0100 #### [facility] [address] [place], [address] Nucleated RBC (Bld) [#/Vol] 0 10*3/uL Normal 0-5 [facility] Comment on above: Performed By: #### L 500.4050, L503.6550, L503.6150, L100.0100 #### [facility] [address] [place], [address] Platelet mean volume (Bld) [Entitic vol] 9.0 fL Normal 6.2-12.0 [facility] Comment on above: Performed By: #### L 500.4050, L503.6550, L503.6150, L100.0100 #### [facility] [address] [place], [address] Platelets (Bld) [#/Vol] 285 10*3/uL Normal 150-450 [facility] Comment on above: Performed By: #### L 500.4050, L503.6550, L503.6150, L100.0100 #### [facility] [address] [place], [address] RBC (Bld) [#/Vol] 4.61 10*6/uL Normal 4.2-5.4 [place] Comment on above: Performed By: #### L 500.4050, L503.6550, L503.6150, L100.0100 #### [facility] [address] [place], [address] RDW SD 45.8 fl High 35.1-43.9 [facility] Comment on above: Performed By: #### L 500.4050, L503.6550, L503.6150, L100.0100 #### [facility] [address] [place], [address] WBC (Bld) [#/Vol] 8.5 10*3/uL Normal 4.4-11.0 [facility] Comment on above: Performed By: #### L 500.4050, L503.6550, L503.6150, L100.0100 #### [facility] [address] [place], [address] Carbon dioxide, total [Moles /volume] in Central venous bloodOrdered By: Micki Laird on 10-21-2024 CO2 [Moles/Vol] 25.9 mmol/L 21.0-32.0 [facility] Chloride assayOrdered By: Ra ese Laird on 10-21-2024 Chloride [Moles/Vol] 100 mmol/L 98-108 [facility] Comprehensive Metabolic Prof ilon 10-21-2024 Albumin [Mass/Vol] 4.3 g/dL Normal 3.4-4.8 [facility] Comment on above: Performed By: #### L 500.4050, L503.6550, L503.6150, L100.0100 ####[facility] [address] [place], [address] Albumin/Globulin [Mass ratio] 1.8 {ratio} Normal 0.9-2.4 [facility] Comment on above: Performed By: #### L 500.4050, L503.6550, L503.6150, L100.0100 ####[facility] [address] [place], [address] ALK PHOS 70 U/L Normal 35-104 [facility] Comment on above: Performed By: #### L 500.4050, L503.6550, L503.6150, L100.0100 ####[facility] [address] [place], [address] ALT [Catalytic activity/Vol] 18 U/L Normal <=34 [facility] Comment on above: Performed By: #### L 500.4050, L503.6550, L503.6150, L100.0100 ####[facility] [address] [place], [address] AST [Catalytic activity/Vol] 24 U/L Normal <=31 [facility] Comment on above: Performed By: #### L 500.4050, L503.6550, L503.6150, L100.0100 ####[facility] [address] [place], [address] Bilirubin [Mass/Vol] 0.41 mg/dL Normal 0.00-1.30 [facility] Comment on above: Performed By: #### L 500.4050, L503.6550, L503.6150, L100.0100 ####[facility] [address] [place], [address] BUN/CRE 11.2 RATIO Normal 10-20 [facility] Comment on above: Performed By: #### L 500.4050, L503.6550, L503.6150, L100.0100 ####[facility] [address] [place], [address] Calcium [Mass/Vol] 9.2 mg/dL Normal 7.6-11.0 [facility] Comment on above: Performed By: #### L 500.4050, L503.6550, L503.6150, L100.0100 ####[facility] [address] [place], [address] Chloride [Moles/Vol] 100 mmol/L Normal 98-108 [facility] Comment on above: Performed By: #### L 500.4050, L503.6550, L503.6150, L100.0100 ####[facility] [address] [place], [address] CO2 [Moles/Vol] 25.9 mmol/L Normal 21.0-32.0 [facility] Comment on above: Performed By: #### L 500.4050, L503.6550, L503.6150, L100.0100 ####[facility] [address] [place], [address] Creatinine [Mass/Vol] 0.74 mg/dL Normal 0.70-1.20 [facility] Comment on above: Performed By: #### L 500.4050, L503.6550, L503.6150, L100.0100 ####[facility] [address] [place], [address] GAP 12 Normal 5-15 [facility] Comment on above: Performed By: #### L 500.4050, L503.6550, L503.6150, L100.0100 ####[facility] [address] [place], [address] GFR/1.73 sq M.predicted among non-blacks MDRD (S/P/Bld) [Vol rate/Area] 90 mL/min/{1.73_m2} Normal >60 [facility] Comment on above: Result Comment: mL/m in/1.73m2 CKD-EPI Creatinine Equation (2020) Performed By: #### L 500.4050, L503.6550, L503.6150, L100.0100 ####[facility] [address] [place], [address] Globulin (S) [Mass/Vol] 2.4 g/dL Normal 2.2-4.2 [facility] Comment on above: Performed By: #### L 500.4050, L503.6550, L503.6150, L100.0100 ####[facility] [address] [place], [address] Glucose [Mass/Vol] 95 mg/dL Normal 70-99 [facility] Comment on above: Performed By: #### L 500.4050, L503.6550, L503.6150, L100.0100 ####[facility] [address] [place], [address] Potassium [Moles/Vol] 4.3 mmol/L Normal 3.3-5.1 [facility] Comment on above: Performed By: #### L 500.4050, L503.6550, L503.6150, L100.0100 ####[facility] [address] [place], [address] Sodium [Moles/Vol] 139 mmol/L Normal 133-145 [facility] Comment on above: Performed By: #### L 500.4050, L503.6550, L503.6150, L100.0100 ####[facility] [address] [place], [address] T PROT 6.7 g/dL Normal 5.9-8.4 [facility] Comment on above: Performed By: #### L 500.4050, L503.6550, L503.6150, L100.0100 ####[facility] [address] [place], [address] Urea nitrogen [Mass/Vol] 8 mg/dL Normal 4-19 [facility] Comment on above: Performed By: #### L 500.4050, L503.6550, L503.6150, L100.0100 ####[facility] [address] [place], [address] Eosinophil percentageOrdered By: Micki Laird on 10-21-2024 Eosinophils/100 WBC (Bld) 0.8 % 0-5 [facility] Erythrocyte distribution wid th (RBC) [Ratio]Ordered By: Micki Laird on 10-21-2024 Erythrocyte distribution width (RBC) [Entitic vol] 45.8 fL High 35.1-43.9 [facility] Erythrocyte distribution wid th ratioOrdered By: Mickiamado Laird on 10-21-2024 Erythrocyte distribution width (RBC) [Ratio] 13.4 % 11.6-14.6 [facility] Erythrocyte distribution wid th standard deviationOrdered By: [place] Eitan on 10-21-2024 Erythrocyte distribution width (RBC) [Ratio] 45.8 fl High 35.1-43.9 [facility] Ferritinon 10-21-2024 Ferritin [Mass/Vol] 41 ng/mL Normal 22-378 [place] Comment on above: Performed By: #### L 500.4050, L503.6550, L503.6150, L100.0100 ####[facility] [address] [place], [address] GFR/1.73 sq M.predicted nathen g non-blacks MDRD (S/P/Bld) [Vol rate/Area]Ordered By: Micki Laird on 10-21-2024 Estimated GFR (MDRD) Non-Af Amer 90 >60 [facility] Comment on above: mL/min/1.73m2 CKD-EP I Creatinine Equation (2020) Glomerular filtration rate ( GFR) estimation/1.73 sq m using serum, plasma, or whole bOrdered By: Micki Laird on 10-21-2024 GFR/1.73 sq M.predicted among non-blacks MDRD (S/P/Bld) [Vol rate/Area] 90 mL/min/{1.73_m2} >60 [facility] Comment on above: mL/min/1.73m2 CKD-EP I Creatinine Equation (2020) Hematocrit Auto (Bld) [Volum e fraction]Ordered By: Micki Laird on 10-21-2024 Hematocrit (Bld) [Volume fraction] 43.1 % 37-47 [facility] Hemoglobin measurementOrdere d By: Micki Laird on 10-21-2024 Hemoglobin (Bld) [Mass/Vol] 14.3 g/dL 12.0-15.0 [facility] Immature granulocytes/100 WB C Auto (Bld)Ordered By: Micki Laird on 10-21-2024 Immature granulocytes/100 WBC (Bld) 0.400 % 0.0-0.9 [facility] Comment on above: IG% - Immature Granu locytes (promyelocytes, myelocytes and metamyelocytes) > 1% indicates that a LEFT SHIFT is Present. Ironon 10-21-2024 Iron [Mass/Vol] 71 ug/dL Normal 50-170 [facility] Comment on above: Order Comment: ADD O N IRON,FE Performed By: #### L 500.4050, L503.6550, L503.6150, L100.0100 ####[facility] [address] [place], [address] Iron (Unsp spec) [Mass/Mass] Ordered By: Micki Laird on 10-21-2024 Iron [Mass/Vol] 71 ug/dL 50-170 [facility] Iron measurement (mass/mass) Ordered By: Micki Laird on 10-21-2024 Iron (Unsp spec) [Mass/Mass] 71 ug/dL 50-170 [facility] Laboratory - Chemistry and C hemistry - challengeOrdered By: Micki Laird on 10-21-2024 AST [Catalytic activity/Vol] 24 U/L <32 [facility] Lymphocytes Auto (Unsp spec) [#/Vol]Ordered By: Micki Laird on 10-21-2024 Lymphocytes (Bld) [#/Vol] 0.94 10*3/uL 0.83-4.51 [facility] Lymphocytes/100 WBC Auto (Un sp spec)Ordered By: Micki Laird on 10-21-2024 Lymphocytes/100 WBC (Bld) 11.1 % Low 19-41 [facility] MCV (mean corpuscular volume ) determinationOrdered By: Micki Laird on 10-21-2024 MCV (RBC) [Entitic vol] 93.5 fL 81-99 [facility] Mean corpuscular hemoglobin (MCH) determinationOrdered By: Micki Laird on 10-21-2024 MCH (RBC) [Entitic mass] 31.0 pg 27.0-32.0 [facility] Mean corpuscular hemoglobin concentration (MCHC) determinationOrdered By: Micki Laird on 10-21-2024 MCHC (RBC) [Mass/Vol] 33.2 g/dL 32-36 [facility] Mean platelet volume determi nationOrdered By: Micki Laird on 10-21-2024 Platelet mean volume (Bld) [Entitic vol] 9.0 fL 6.2-12.0 [facility] Monocyte percentageOrdered B y: Micki Laird on 10-21-2024 Monocytes/100 WBC (Bld) 8.4 % 0-10 [facility] Neutrophil percentageOrdered By: Micki Laird on 10-21-2024 Neutrophils/100 WBC (Bld) 78.8 % High 47-70 [facility] Nucleated red blood cell per centageOrdered By: Micki Laird on 10-21-2024 Nucleated RBC/100 WBC (Bld) [Ratio] 0 % 0-5 [facility] Platelet countOrdered By: Ra ese Laird on 10-21-2024 Platelets (Bld) [#/Vol] 285 10*3/uL 150-450 [facility] Potassium (Unsp spec) [Mass/ Vol]Ordered By: Micki Laird on 10-21-2024 Potassium [Moles/Vol] 4.3 mmol/L 3.3-5.1 [facility] Potassium measurement (mass/ volume)Ordered By: Micki Laird on 10-21-2024 Potassium (Unsp spec) [Mass/Vol] 4.3 mmol/L 3.3-5.1 [facility] RBC Auto (Bld) [#/Vol]Ordere d By: Micki Laird on 10-21-2024 RBC (Bld) [#/Vol] 4.61 10*6/uL 4.2-5.4 [place] Serum creatinine measurement (mass/volume)Ordered By: Micki Laird on 10-21-2024 Creatinine [Mass/Vol] 0.74 mg/dL 0.70-1.20 [facility] Serum globulin measurementOr dered By: Micki Laird on 10-21-2024 Globulin (S) [Mass/Vol] 2.4 g/dL 2.2-4.2 [facility] Serum glucose measurement (m ass/volume)Ordered By: Micki Laird on 10-21-2024 Glucose [Mass/Vol] 95 mg/dL 70-99 [facility] Serum or plasma alanine price otransferase (ALT) measurementOrdered By: Micki Laird on 10-21-2024 ALT [Catalytic activity/Vol] 18 U/L <35 [facility] Serum or plasma albumin rosibel urement (mass/volume)Ordered By: Micki Laird 10-21-2024 Albumin [Mass/Vol] 4.3 g/dL 3.4-4.8 [facility] Serum or plasma albumin/glob ulin mass ratioOrdered By: Micki Laird 10-21-2024 Albumin/Globulin [Mass ratio] 1.8 {ratio} 0.9-2.4 [facility] Serum or plasma alkaline nia sphatase measurementOrdered By: Micki Laird 10-21-2024 ALP [Catalytic activity/Vol] 70 U/L 35-104 [facility] Serum or plasma calcium rosibel urement (mass/volume)Ordered By: Micki Laird 10-21-2024 Calcium [Mass/Vol] 9.2 mg/dL 7.6-11.0 [facility] Serum or plasma ferritin siena surement (mass/volume)Ordered By: Micki Laird 10-21-2024 Ferritin [Mass/Vol] 41 ng/mL 22-378 [place] Serum or plasma urea nitroge n measurement (mass/volume)Ordered By: Micki Laird on 10-21-2024 Urea nitrogen [Mass/Vol] 8 mg/dL 4-19 [facility] Sodium levelOrdered By: Carole Laird on 10-21-2024 Sodium [Moles/Vol] 139 mmol/L 133-145 [facility] Total proteinOrdered By: Keanu Laird on 10-21-2024 Protein [Mass/Vol] 6.7 g/dL 5.9-8.4 [facility] White blood cell (WBC) count Ordered By: Micki Laird on 10-21-2024 WBC (Bld) [#/Vol] 8.5 10*3/uL 4.4-11.0 [facility] Pulmonary Visit Reporton Pulmonary Visit Report [facility] [place] [address] [place] [address] OFFICE VISIT Date of Service: 06/24/24 MR#: [id number] Acct: [id number] Name: VIOLETTA LINDER Rep #: [id number] : 1960 Provider: Sandra Soriano NP Age/Sex: 64/F Location[place] [facility] [place] Status: Signed Assessment and Plan Assessment and Plan (1) Asthma-COPD overlap syndrome: Status: Chronic Plan: She is post exacerbation of asthma/COPD today and almost to baseline. I discussed the duration of symptoms post exacerbation, she reports understanding. I have asked for her to use her nebulized albuterol more frequently as that has provided her with benefit in the past. I do recommend PFT and 6 min walk test and patient declines today. No need for further prednisone or antibiotic at this time. Continue current maintenance medication, typically well-controlled on triple therapy with the use of Breztri, refill sent today- patient indiates that she has 2 canisters left and will need a refill prior to next appointment. Contact the office for any new or worsening symptoms. An acute visit and typically be arranged within 1-2 days. RSV is recommended. (2) Smoking greater than 30 pack years: Status: Chronic Comment: Ordered to repeat June 2025 Plan: Continue to encourage complete smoking cessation. The patient remains appropriate for annual LDCT which will be due in June 2025 and is ordered today. Patient is in agreement to this plan. The patient is educated about the benefits of smoking cessation. Medical nicotine replacement therapy was offered to the patient. The patient does not want to return to using Chantix. She has declined referral to the smoking cessation clinic. Discussed [id number] for 11 minutes habits, coping mechanisms, methods to help change desires. All questions were answered. I discussed the option of following up sooner to have accountability for smoking cessation but patient has declined today. Orders: Orders Low Dose CT Lung Screening 12 Months F17.210 - Nicotine dependence, cigarettes, uncomplicated Medications: Refilled qrypnihdsa-hsmrddgp-rxnpaifc ol 160-9-4.8 mcg/actuation (Breztri Aerosphere) 2 inhalations inhalation BID 3 ea 3RF Plan Details Follow Up: 6 Months (LMR) HPI HPI Comments Details: This 64-year-old female patient presents to the office today for follow-up of her asthma/COPD overlap syndrome. She is ambulatory and currently on room air. One month ago, she received Levaquin and prednisone from PCP. The patient reports that she was experiencing active URI symptoms. Symptoms have improved but she does have residual congestion and is now using cough syrup and peppermint for the congestion. She does report compliant with use of Breztri 2 puffs twice daily. She rinses her mouth out after each use. She has been able to obtain the inhaler. She is not having difficulty with sore throat or thrush. She does have albuterol HFA which she believes is not beneficial. She indicates that she has nebulized albuterol therapy at home but these are not used often. She continues to smoke cigarettes, 1/2 pack/day. She was not able to tolerate Chantix. She reports that she has been hypnotized 3 times. She indicates that she has tried various other smoking cessation tactics without benefit. She reports that she would like to stop smoking cigarettes. One month ago she was changed from Cymbalta to Prozac and is hoping that this will help stabilize her mood. She denies shortness of breath today. She does have a cough with occasional wheeze and clear sputum. She denies any hemoptysis. She denies chest tightness, chest pain or palpitations. She also denies fever, chills or body aches. She does have some right shoulder blade pain where I had melanoma . She reports that she has followed up with dermatology. She reports that the pain has improved in the past few weeks. The patient indicates a bad reaction to the flu shot . She reports that the injection site was erythematous, edematous, and painful. She indicates that the influenza injection site was located in close proximity to where she had melanoma history and a residual scar on her left arm. Test results personally reviewed with patient today include: Low-dose screening lung CT from June 15, 2024 shows No suspicious nodules are seen. Emphysematous changes. Stable apical bilateral scarring. Recommended 12-month annual screening CT. Intake Vital Signs 09/23/23 07:15 06/24/24 08:27 Height 5 ft 4 in 5 ft 4 in Weight: 151 lb 154 lb BMI 25.9 26.4 BP 112/72 117/77 Blood Pressure Location Lt brachial Lt brachial Position Sitting Sitting Respiration 20 H 20 H Pulse 82 73 Pulse Source Monitor Monitor Temp 97.1 F L 97.0 F L Temperature Source Temporal Artery Temporal A (more content not included)... Normal [facility] Low Dose CT Lung Screeningon 06-16-[address] Lung Screening [facility] Imaging Services [address], [place] [id number] Low Dose CT Lung Screening MR#: [id number] Acct: [id number] Name: VIOLETTA LINDER Rep #: [id number] : 1960 F 64 From: Gabe pfeiffer MD PCP: Dr. Beata Schwarz MD Status: REG [facility] Study: Low Dose CT Lung Screening Date of Exam: 06/16 Exam# [id number] Ordering Dr: Carol Casillas NP [employer] :[id number] STUDY: LOW DOSE CT LUNG CANCER SCREENING REASON FOR EXAM: Female, 64 years old. Smoker. Patient smokes half a pack per day for 35 years. Emphysema/COPD. RADIATION DOSAGE (If Supplied By Facility): CTDIvol = ( 2.01 ) mGy, DLP = ( 69.22 ) mGycm TECHNIQUE: No contrast was administered. Low dose technique was utilized (average mAS-38 and kVp 120). 1.25 mm axial source images with a slice interval of 1.25-mm were reconstructed in lung windows. 2.5 mm axial source images with a slice interval of 2.5-mm were reconstructed in lung windows. 5.0 mm axial source images with a slice interval of 5.0-mm were reconstructed in soft tissue windows. COMPARISON: Comparison is made with prior study dated May 14, 2022. NODULES: No suspicious nodules are seen. Emphysema: Emphysematous changes. Stable apical bilateral scarring. Endobronchial lesion: None Aorta: Unremarkable CORONARY ARTERIES: Coronary artery calcification is not seen. Heart: Unremarkable Pulmonary artery: Unremarkable Mediastinal nodes: Unremarkable Other chest and abdominal findings: CT/Low Dose CT Lung Screening IMPRESSION: Lung-RADS category 2 - Continue annual screening with LDCT in 12 months. IMPORTANT NOTES FOR USE: ACR Lung-RADS Version 1.1 Assessment Categories Release Date: 2018 Category: Coded 0-4 bases on nodule(s) with highest degree of suspicion. Negative screen is defined as categories 1 and 2; a positive screen is defined as categories 3 and 4. Category 3 and 4A nodules that are unchanged on interval CT should be coded as category 2, and individuals returned to screening in 12 months. Category 4X: Category 3 or 4 nodules with additional imaging findings that increase the suspicion of lung cancer, such as spiculation, GGN that doubles in size in 1 year, enlarged lymph notes, etc. Category Modifiers: S (significant finding unrelated to lung cancer) Electronically Signed: Gabe Haddad MD at 13:17 EST , CC: JIMBO Casillas; Dr. Beata Schwarz MD Airplane Engineer: Signed Normal [facility] SCRN MAMM (CAD)W/TREVER BILATo n 06-01-2024 SCRN MAMM (CAD)W/TREVER BILAT [facility] Imaging Services [address] [place] [address] SCRN MAMM (CAD)W/TREVER BILAT MR#: [id number] Acct: [id number] Name: VIOLETTA LINDER Rep #: [id number] : 1960 F 64 From: Gabe pfeiffer MD PCP: Dr. Beata Schwarz MD Status: REG CLI Study: SCRN MAMM (CAD)W/TREVER BILAT Date of Exam: 05/14 Exam# [id number] Ordering Dr: Beata Schwarz MD :[id number] MAMMOGRAPHY - BILATERAL SCREENING REASON FOR EXAM: Female, 64 years old. Routine annual screening examination. PERTINENT HISTORY: Aunt with breast cancer. TECHNIQUE: Digital bilateral breast trever (3D mammographic acquisition) in the CC and MLO projections. 2-D mediolateral oblique (MLO) and craniocaudad (CC) views of both breasts were obtained. CAD: Full Field Digital Mammography with Computer Added Detection was performed. COMPARISON: Comparison is made with prior study February 15, 2020 and January 22, 2019. FINDINGS: Breast Composition: The breasts are heterogeneously dense, which may obscure small masses. There are no dominant masses or suspicious calcifications. No other significant abnormalities are identified. There has been no significant change since the prior study. BI/SCRN MAMM (CAD)W/TREVER BILAT IMPRESSION: Stable bilateral screening mammogram. Yearly follow-up mammogram recommended. (A) ASSESSMENT CATEGORY: BIRADS Category 1: Negative. A letter regarding these results will be sent to the patient by the facility within 30 days. Approximately 10% of breast cancers are not detected by mammography. A normal mammogram should not delay biopsy of a clinically suspicious abnormality. [id number] Electronically Signed: Gabe Haddad MD at 11:18 EST Reading Location ID and State: [facility] / [place] , Service support , CC: Dr. Beata Schwarz MD Airplane Engineer: Signed Normal [facility] Lipid Profileon 05-10-2024 Cholesterol [Mass/Vol] 250 mg/dL High 200 [facility] Comment on above: Result Comment: <200 mg/dL Desirable 200-240 mg/dL Borderline >240 mg/dL High Risk Performed By: #### L 500.4100 #### [facility] Laboratory [address] [place], [address] Cholesterol in HDL [Mass/Vol] 80 mg/dL Normal [facility] Comment on above: Result Comment: The drugs N-Acetylcysteine and Metamizole may falsely depress this assay. Reference Range HDL <40 mg/dL Low HDL Cholesterol HDL >or= 60 mg/dL High HDL Cholesterol Performed By: #### L 500.4100 #### [facility] Laboratory [address] [place], [address] Cholesterol in LDL [Mass/Vol] 151 mg/dL High 0-130 [facility] Comment on above: Performed By: #### L 500.4100 #### [facility] Laboratory [address] [place], [address] Cholesterol in VLDL [Mass/Vol] 19 mg/dL Normal 5-40 [facility] Comment on above: Performed By: #### L 500.4100 #### [facility] Laboratory [address] [place], [address] Triglyceride [Mass/Vol] 97 mg/dL Normal [facility] Comment on above: Result Comment: The drugs N-Acetylcysteine and Metamizole may falsely depress this assay. Serum Triglycerides Reference Interval Normal <150 mg/dL Borderline high 150 - 199 mg/dL High 200 - 499 mg/dL Very High > or = 500 mg/dL Performed By: #### L 500.4100 #### [facility] Laboratory [facility] [place], [address] CBC + DIFFon 10-14-2023 Baso # 0.02 x10EE3/UL Normal 0.00 - 0.10 [facility] Comment on above: Performed By: #### 2 44870 #### [facility],[address] [place] [address]293 Basophils/100 WBC (Bld) 0.2 % Normal 0.0 - 2.0 [facility] Comment on above: Performed By: #### 2 91719 #### [facility],[address] [place] [address] 41594 CBC + DIFF Normal [facility] Comment on above: Result Comment: CBC- COMPLETE BLOOD COUNT Performed By: #### 2 47055 #### [facility],[address] [place] [address]506 EO # 0.12 x10EE3/UL Normal 0.00 - 0.50 [facility] Comment on above: Performed By: #### 2 24924 #### [facility],[address] [place] [address] 64192 Eosinophils/100 WBC (Bld) 1.2 % Normal 0.0 - 7.0 [facility] Comment on above: Performed By: #### 2 41211 #### [facility],[address] [place] [address]1021 Erythrocyte distribution width (RBC) [Ratio] 13.6 % Normal 12.0 - 15.6 [facility] Comment on above: Performed By: #### 2 81549 #### [facility],[address] [place] [address] 33619 Hematocrit (Bld) [Volume fraction] 41.7 % Normal 34.0 - 46.0 [facility] Comment on above: Performed By: #### 2 09993 #### [facility],[address] [place] [address] 11558 Hemoglobin (Bld) [Mass/Vol] 13.7 g/dL Normal 12.0 - 16.0 [facility] Comment on above: Performed By: #### 2 56463 #### [facility],[address] [place], [place] [address] Lymph # 2.14 x10EE3/UL Normal 0.80 - 2.80 [facility] Comment on above: Performed By: #### 2 29749 #### [facility],[address] [place], [place] [address] Lymphocytes/100 WBC (Bld) 20.7 % Normal 20.0 - 45.0 [facility] Comment on above: Performed By: #### 2 27758 #### [facility],[address] [place] [address] MANUAL DIFF N/A Normal [facility] Comment on above: Performed By: #### 2 00615 #### [facility],[address] [place] [address] 80217 MCH (RBC) [Entitic mass] 30 pg Normal 27 - 33 [facility] Comment on above: Performed By: #### 2 43352 #### [facility],[address] [place] [address] 13355 MCHC 33 X10 3 Normal 32 - 36 [facility] Comment on above: Performed By: #### 2 19400 #### [facility],[address] [place] [address] 18837 MCV (RBC) [Entitic vol] 92 fL Normal 80 - 99 [facility] Comment on above: Performed By: #### 2 68677 #### [facility],[address] [place] [address] 65496 Wetzel # 0.88 x10EE3/UL Normal 0.20 - 1.00 [facility] Comment on above: Performed By: #### 2 89684 #### [facility],[address] [place] [address] 46392 MONOS % 8.6 % Normal 0.0 - 10.0 [facility] Comment on above: Performed By: #### 2 15053 #### [facility],[address] [place] [address] 80925 Morphology Jorge (Bld) [Interp] N/A Normal [facility] Comment on above: Performed By: #### 2 45108 #### [facility],[address] [place] [address]26 Neut # 7.15 x10EE3/UL High 1.50 - 7.10 [facility] Comment on above: Performed By: #### 2 34264 #### [facility],[address] [place] [address] 92605 Neutrophils/100 WBC (Bld) 69.4 % Normal 46.0 - 76.0 [facility] Comment on above: Performed By: #### 2 17921 #### [facility],[address] [place] [address] 92475 PLATELET 308 x10EE3/UL Normal 150 - 450 [facility] Comment on above: Performed By: #### 2 41753 #### [facility],[address] [place] [address] 07615 Platelet mean volume (Bld) [Entitic vol] 6.8 fL Normal 6.6 - 10.5 [facility] Comment on above: Result Comment: AUTO MATED DIFFERENTIAL Performed By: #### 2 90134 #### [facility],[address] [place] [address] 18433 RBC 4.53 x 10EE6/UL Normal 4.10 - 5.30 [facility] Comment on above: Performed By: #### 2 13580 #### [facility],[address] [place] [address] 22843 WBC 10.3 x 10EE3/UL Normal 4.5 - 10.8 [facility] Comment on above: Performed By: #### 2 56852 #### [facility],[address] [place] [address] 62455 CHEST 2 VIEWSon 10-14-2023 CHEST [address] [address] Patient: VIOLETTA LINDER Phone#: : 1960 Age: 63 Gender: F Pt. Type: ER Account: [id number] Location: [facility] Ordering: TARA LEON Exam Date: 10/14/2023/18:41 Family Phys: EDYTA NICHOLE Charge Code: [id number] Physician: [place] Order #: [id number] Dose#: PROCEDURE: X-RAY CHEST 2 VIEWS COMPARISON: [facility], XR, CHEST 2 VIEWS, 07/06/2023, 11:38. INDICATIONS: Dyspnea. FINDINGS: LUNGS: Normal. No significant pulmonary parenchymal abnormalities. VASCULATURE: Normal. Unremarkable pulmonary vasculature. CARDIAC: Normal. No cardiac silhouette abnormality or cardiomegaly. MEDIASTINUM: Normal. No visible mass or adenopathy. PLEURA: Normal. No effusion or pleural thickening. BONES: Normal. No fracture or visible bony lesion. OTHER: Negative. CONCLUSION: No acute disease. No significant change has occurred. Dictated by: Breana Herrera MD on 10/14/2023 at 18:50 Approved by: Breana Herrera MD on 10/14/2023 at 18:51 Normal [facility] CMP with eGFRon 10-14-2023 AGE 63 years Normal [facility] Comment on above: Performed By: #### 2 31267 #### [facility],[address] [place] [address] 74171 Albumin [Mass/Vol] 4.1 g/dL Normal 3.4 - 5.0 [facility] Comment on above: Performed By: #### 2 17978 #### [facility],[address] [place] [address] 05402 Albumin/Globulin [Mass ratio] 1.2 {ratio} Normal 0.9 - 1.6 [facility] Comment on above: Performed By: #### 2 07287 #### [facility],[address] [place] [address] 45545 ALK PHOS 81 U/L Normal 46 - 116 [facility] Comment on above: Performed By: #### 2 69840 #### [facility],[address] [place] [address] 45753 ALT [Catalytic activity/Vol] 29 U/L Normal 16 - 63 [facility] Comment on above: Performed By: #### 2 65796 #### [facility],[address] [place] [address] 55946 Anion gap [Moles/Vol] 10 mmol/L Normal 10 - 20 [facility] Comment on above: Performed By: #### 2 77028 #### [facility],[address] [place] [address] 44608 AST [Catalytic activity/Vol] 19 U/L Normal 13 - 39 [facility] Comment on above: Performed By: #### 2 23230 #### [facility],[address] [place] [address] 61015 B/C RATIO 20 ratio Normal 0 - 30 [facility] Comment on above: Performed By: #### 2 07451 #### [facility],[address] [place] [address] 76862 Bilirubin [Mass/Vol] 0.4 mg/dL Normal 0.2 - 1.0 [facility] Comment on above: Performed By: #### 2 46578 #### [facility],[address] [place] [address] 46451 Calcium [Mass/Vol] 9.4 mg/dL Normal 8.5 - 10.1 [facility] Comment on above: Performed By: #### 2 51542 #### [facility],[address] [place] [address] 69530 Chloride [Moles/Vol] 100 mmol/L Normal 98 - 107 [facility] Comment on above: Performed By: #### 2 56209 #### [facility],[address] [place] [address] 88745 CMP with eGFR Normal [facility] Comment on above: Result Comment: COMP REHENSIVE METABOLIC PANEL Performed By: #### 2 07341 #### [facility],[address] [place] [address] 30635 CO2 [Moles/Vol] 31.2 mmol/L Normal 21.0 - 32.0 [facility] Comment on above: Performed By: #### 2 84798 #### [facility],[address] [place], [place] [address] Creatinine [Mass/Vol] 0.85 mg/dL Normal 0.55 - 1.02 [facility] Comment on above: Performed By: #### 2 58201 #### [facility],[address] [place], [place] [address] GFR/1.73 sq M.predicted among non-blacks MDRD (S/P/Bld) [Vol rate/Area] mL/min/{1.73_m2} Normal 60 - 999 [facility] Comment on above: Performed By: #### 2 71637 #### [facility],[address] [place], [place] [address] Result Comment: ACCO RDING TO THE NATIONAL KIDNEY DISEASE EDUCATION PROGRAM(NKDE), A NORMAL eGFR IS A VALUE GREATER THAN OR EQUAL TO 60 ML/MIN/1.73 SQ METERS. CHRONIC KIDNEY DISEASE: <60mL/MIN/1.73 SQ METERS KIDNEY FAILURE: <15mL/MIN/1.73 SQ METERS THIS TEST SHOULD ONLY BE USED FOR PATIENTS 18 YEARS OF AGE AND OLDER. Globulin (S) [Mass/Vol] 3.5 g/dL Normal 1.5 - 3.8 [facility] Comment on above: Performed By: #### 2 98010 #### [facility],[address] [place] [address] 80333 Glucose [Mass/Vol] 95 mg/dL Normal 74 - 106 [facility] Comment on above: Performed By: #### 2 25010 #### [facility],[address] [place] [address] Potassium [Moles/Vol] 4.3 mmol/L Normal 3.5 - 5.1 [facility] Comment on above: Performed By: #### 2 50494 #### [facility],[address] [place] [address] Protein [Mass/Vol] 7.6 g/dL Normal 6.4 - 8.2 [facility] Comment on above: Performed By: #### 2 51021 #### [facility],[address] [place] [address] Sodium [Moles/Vol] 137 mmol/L Normal 136 - 145 [facility] Comment on above: Performed By: #### 2 80935 #### [facility],[address] [place] [address] Urea nitrogen [Mass/Vol] 17 mg/dL Normal 7 - 18 [facility] Comment on above: Performed By: #### 2 18003 #### [facility],[address] [place] [address] CORONAVIRUS (SARS) ANTIGEN T ESTon 10-14-2023 EXTERNAL QC DONE? YES Normal [facility] Comment on above: Performed By: #### 2 83293 #### [facility],[address] [place] [address] INTERNAL CONTROL PASS Normal [facility] Comment on above: Performed By: #### 2 15756 #### [facility],[address] [place] [address] SARS ANTIGEN Negative Normal NORMAL: NEGATIVE [facility] Comment on above: Performed By: #### 2 43073 #### [facility],[address] [place] [address] SEND TO ? NO Normal [facility] Comment on above: Result Comment: SARS -CoV-2 THIS TEST IS BEING USED UNDER THE FDA EUA PROCEDURE. THIS ASSAY HAS BEEN VALIDATED AT [facility] FOR USE WITH NASAL AND NASOPHARYNGEAL SWAB SPECIMENS. INTERPRETIVE DATA TEST RESULTS SHOULD ALWAYS BE CONSIDERED IN THE CONTEXT OF CLINICAL OBSERVATIONS AND EPIDEMIOLOGICAL DATA IN MAKING FINAL DIAGNOSIS AND PATIENT MANAGEMENT DECISIONS. PATIENT MANAGEMENT SHOULD FOLLOW CURRENT CDC GUIDELINES. THE JHON SARS ANTIGEN TANI DOES NOT DIFFERENTIATE BETWEEN SARS-CoV & SARS-CoV-2. A POSITIVE TEST RESULT INDICATES THE PRESENCE OF SARS-CoV-2 NUCLEOCAPSID PROTEIN ANTIGEN, AND THE PATIENT IS INFECTED WITH THE VIRUS AND PRESUMED TO BE CONTAGIOUS. A NEGATIVE TEST RESULT FOR THIS TEST MEANS THAT SARS-CoV-2 NUCLEOCAPSID PROTEIN ANTIGEN WAS NOT PRESENT IN THE SPECIMEN ABOVE THE LIMIT OF DETECTION. HOWEVER, A NEGATIVE RESULT DOES NOT RULE OUT COVID-19 AND SHOULD NOT BE USED THE SOLE BASIS FOR TREATMENT OR PATIENT MANAGEMENT DECISIONS. A NEGATIVE RESULT DOES NOT EXCLUDE THE POSSIBILITY OF COVID-19. NEGATIVE RESULTS, FROM PATIENTS WITH SYMPTOM ONSET BEYOND FIVE DAYS, SHOULD BE TREATED PRESUMPTIVE AND CONFIRMATION WITH A MOLECULAR ASSAY, IF NECESSARY, FOR PATIENT MANAGEMENT, MAY BE PERFORMED. WHEN DIAGNOSTIC TESTING IS NEGATIVE, THE POSSIBLILTY OF A FALSE NEGATIVE RESULT SHOULD BE CONSIDERED IN THE CONTEXT OF A PATIENT'S RECENT EXPOSURES AND THE PRESENCE OF CLINICAL SIGNS AND SYMPTOMS CONSISTENT WITH COVID-19. THE POSSIBILITY OF A FALSE NEGATIVE RESULT SHOULD ESPECIALLY BE CONSIDERED IF THE PATIENT'S RECENT EXPOSURES OR CLINICAL PRESENTATION INDICATE THAT COVID-19 IS LIKELY, AND DIAGNOSTIC TESTS FOR OTHER CAUSES OF ILLNESS (e.g., OTHER RESPIRATORY ILLNESS) ARE NEGATIVE. IF COVID-19 IS STILL SUSPECTED BASED ON EXPOSURE HISTORY TOGETHER WITH OTHER CLINICAL FINDINGS, RE-TESTING SHOULD BE CONSIDERED BY HEALTHCARE PROVIDERS IN CONSULTATION WITH PUBLIC HEALTH AUTHORITIES. Performed By: #### 2 57535 #### [facility],[address] [place] [address] 71766 D-DIMER, QUANTITATIVEon 04-0 -2023 D-DIMER QUANT 177 ng/ml Normal 0 - 230 [facility] Comment on above: Performed By: #### 2 62961 #### [facility],[address] [place] [address] 61012 D-DIMER, QUANTITATIVE Normal [facility] Comment on above: Result Comment: LILIYA T D-DIMER Performed By: #### 2 85381 #### [facility],[address] [place] [address] 80842 LACTATEon 10-14-2023 Lactate [Moles/Vol] 0.8 mmol/L Normal 0.4 - 2.0 [facility] Comment on above: Performed By: #### 2 48312 #### [facility],[address] [place] [address] 55315 TROPONIN I, HIGH SENSITIVITY on 10-14-2023 HS TROPONIN 4.9 pg/mL Normal 0.0 - 51.4 [facility] Comment on above: Performed By: #### 2 52192 #### [facility],[address] [place] [address] 61889 CARECOORDon 08-25-2023 CARECOORD Patient Choice Patient Name: VIOLETTA LINDER Date of : [address] [facility] [id number] 08-20-2023 [id number] [facility] called, as no response had been received via [facility] at this time. Referral sent to several additional agencies as discharge order noted in [facility]. Pt agreeable to first available agency. 4pm update: [facility] is able to accept. Pt updated. Will send updated documents for SOC tomorrow . Attempted to reach PCP and Dr. Alejo to determine who will follow for home care. Edyta Nichole, pt's pcp will follow for home care. Also her name was updated in [employer], the PCP previously documented was incorrect. [facility] [phone] Spoke with pt at bed side and pt is agreeable to PT (declined/denied OT needs) at home following discharge. Pt requested [facility] and referral was sent. She stated if they are unable to accept, she'll be happy with first accepting agency. [facility] is unable to staff that area with PT at this time. Pt denied DME needs. Normal [facility] [phone] Urologist Physician tiffany quevedodanyadarlin case for Discharge Needs. Normal [facility] BASIC METABOLIC PANELon 02-0 Anion gap [Moles/Vol] 6 mmol/L Normal 3-13 [facility] Comment on above: Performed By: #### L AB15 #### J2Ee Developer: TRINITY CHASE ([id number]) [facility] ([facility]) [address] [place] [address] Calcium [Mass/Vol] 8.4 mg/dL Normal 8.4-10.4 [facility] Comment on above: Performed By: #### L AB15 #### J2Ee Developer: TRINITY CHASE ([id number]) [facility] [address] [place] [address] [place] Chloride [Moles/Vol] 100 mmol/L Normal 98-107 [facility] Comment on above: Performed By: #### L AB15 #### J2Ee Developer: TRINITY CHASE ([id number]) [facility] ([facility]) [address] [place] [address] [place] CO2 [Moles/Vol] 28 mmol/L Normal 22-30 [facility] Comment on above: Performed By: #### L AB15 #### J2Ee Developer: TRINITY CHASE ([id number]) [facility] ([facility]) [address] [place] [address] [place] Creatinine [Mass/Vol] 0.51 mg/dL Low 0.52-1.04 [facility] Comment on above: Performed By: #### L AB15 #### J2Ee Developer: TRINITY CHASE ([id number]) [facility] ([facility]) [address] [place] [address] [place] GLOMERULAR FILTRATION RATE ML/MIN/1.73 SQ M.PREDICTED >90.0 Normal >60.0 [facility] Comment on above: Result Comment: Calc ulation based on the Chronic Kidney Disease Epidemiology Collaboration (CKD-EPI) equation refit without adjustment for race Performed By: #### L AB15 #### J2Ee Developer: TRINITY CHASE ([id number]) [facility] ([facility]) [address] [place] [address] Glucose [Mass/Vol] 146 mg/dL High 70-100 [facility] Comment on above: Performed By: #### L AB15 #### J2Ee Developer: TRINITY CHASE ([id number]) [facility] ([facility]) [address] [place] [address] Potassium [Moles/Vol] 4.3 mmol/L Normal 3.5-5.1 [facility] Comment on above: Performed By: #### L AB15 #### J2Ee Developer: TRINITY CHASE ([id number]) [facility] ([facility]) [address] [place] [address] Sodium [Moles/Vol] 134 mmol/L Low 135-145 [facility] Comment on above: Performed By: #### L AB15 #### J2Ee Developer: TRINITY CHASE ([id number]) [facility] ([facility]) [address] [place] [address] Urea nitrogen [Mass/Vol] 14 mg/dL Normal 7-17 [facility] Comment on above: Performed By: #### L AB15 #### J2Ee Developer: TRINITY CHASE ([id number]) [facility] ([facility]) [address] [place] [address] Basic metabolic 1998 panelon 08-20-2023 Anion gap [Moles/Vol] 6 mmol/L 3 - 13 mmol/L [facility] Calcium [Mass/Vol] 8.4 mg/dL 8.4 - 10. 4 mg/dL [facility] Chloride [Moles/Vol] 100 mmol/L 98 - 10 7 mmol/L [facility] CO2 [Moles/Vol] 28 mmol/L 22 - 30 mmol/L [facility] Creatinine [Mass/Vol] 0.51 mg/dL Low 0.52 - 1.04 mg/dL [facility] GFR/1.73 sq M.predicted MDRD (S/P/Bld) [Vol rate/Area] - PINF [facility] Comment on above: Calculation based on the Chronic Kidney Disease Epidemiology Collaboration (CKD-EPI) equation refit without adjustment for race Glucose [Mass/Vol] 146 mg/dL High 70 - 100 mg/dL [facility] Interpretation and review of laboratory results Abnormal [facility] Potassium [Moles/Vol] 4.3 mmol/L 3.5 - 5.1 mmol/L [facility] Sodium [Moles/Vol] 134 mmol/L Low 135 - 145 mmol/L [facility] Urea nitrogen [Mass/Vol] 14 mg/dL 7 - 17 mg/dL [facility] CARECOORDon 08-20-2023 [facility] Managment [facility] Assessment Date: 08/20/2023 Patient Name: Violetta Linder : 1960 Patient Information Source of Information: Patient Cognition/Language: WFL - Within Functional Limits Permission given to speak with patient mortician supplies sales representative/caregiver as indicated: Confirmation of Payer with patient/family: Yes Payer Name: [employer] : No Confirmation of Primary Care Physician: Confirmed PCP Name: BRIAN Sadler Seen in last 2 years?: Yes Primary Caregiver: Self If assistance needed, confirmed caregiver ready, willing and able to care for patient at discharge: Confirmed with: Living Arrangements Current Residence: House Number of Floors 2 Number of Entry Steps: 2 Bed/Bath Levels: Both second floor Facility: Facility Name: Plan to Return: Lives with: Alone Support Systems: Family members, Friends/neighbors Activities of Daily Living Ambulation: Independent Bathing/Dressing: Independent Elimination/Continence/Toile ting: Independent Feeding: Independent Who Assists with Activities of Daily Living: Instrumental Activities of Daily Living Prescription Coverage: Yes Pharmacy Used: [facility] [place] Medication Management: Independent Transportation/Shopping: Independent Transportation Mode: Car Needs Assistance with Transportation at Discharge: No Meal Preparation: Independent Laundry/Cleaning: Independent Finances/Bill Paying: Independent Communication: Independent Types of Care Services/Equipment Utilized Care Services: Dialysis Type: Durable Medical Equipment: Other (Comment) DME Provider: nebulizer Patient's Goal/Discharge Plan Patient expects to be discharged to: Discharge Planning Actions: Continue to follow Patient's Choice Rights and [employer] and Collaborative Relationships Disclosed as Indicated for Post-Acute Care: Interdisciplinary Team Engagement: Social Work Referral for: Additional Information: 63 yo female admitted to for surgery 08/19/23: Microdiscectomy, foramenectomy L4, 4,5. PT/OT recommending home with home health. Met with pt; explained role of tcc. Pt lives alone. She is independent adls and uses a nebulizer as needed. Pt is agreeable to home care at discharge and is requesting [facility]. FRITZ Jules made aware. Pt denies any other needs from tcc. Anticipate possible dc home tomorrow if medically stable. Ximena Albarado RN Normal [facility] CBC W Auto Differential pane l (Bld)Ordered By: Santiago Mendoza on 08-20-2023 Basophils (Bld) [#/Vol] 0.0 10*3/uL 0.0 - 0.2 10*3/uL [facility] Basophils/100 WBC (Bld) 0.1 % 0.0 - 2.0 % [facility] Eosinophils (Bld) [#/Vol] 0.0 10*3/uL 0.0 - 0.5 10*3/uL [facility] Eosinophils/100 WBC (Bld) 0.0 % Low 1.0 - 6.0 % [facility] Erythrocyte distribution width (RBC) [Ratio] 13.5 % 11.5 - 14.5 % [facility] Hematocrit (Bld) [Volume fraction] 38.5 % 35.0 - 47.0 % [facility] Hemoglobin (Bld) [Mass/Vol] 12.6 g/dL 11.7 - 16.0 g/dL [facility] Interpretation and review of laboratory results Abnormal [facility] Lymphocytes (Bld) [#/Vol] 0.6 10*3/uL Low 1.0 - 4.3 10*3/uL [facility] Lymphocytes/100 WBC (Bld) 5.3 % Low 20.0 - 40.0 % [facility] MCH (RBC) [Entitic mass] 30.4 pg 26.0 - 34.0 pg [facility] MCHC (RBC) [Mass/Vol] 32.7 % 32.0 - 36.0 % [facility] MCV (RBC) [Entitic vol] 93.0 fL 80.0 - 98.0 fL [facility] Monocytes (Bld) [#/Vol] 0.6 10*3/uL 0.0 - 0.8 10*3/uL [facility] Monocytes/100 WBC (Bld) 5.1 % 2.0 - 10.0 % [facility] Neutrophils (Bld) [#/Vol] 11.1 10*3/uL High 1.8 - 7.0 10*3/uL [facility] Neutrophils/100 WBC (Bld) 89.5 % High 40.0 - 80.0 % [facility] Nucleated RBC/100 WBC (Bld) [Ratio] 0.0 % [facility] Platelet mean volume (Bld) [Entitic vol] 6.9 fL Low 7.4 - 12.4 fL [facility] Platelets (Bld) [#/Vol] 230 10*3/uL 140 - 440 10*3/uL [facility] RBC (Bld) [#/Vol] 4.14 10*6/uL 3.8 - 5.20 10*6/uL [facility] WBC (Bld) [#/Vol] 12.4 10*3/uL High 3.6 - 10.7 10*3/uL [facility] CBC WITH AUTO DIFFERENTIALon 08-20-2023 Basophils (Bld) [#/Vol] 0.0 10*3/uL Normal 0.0-0.2 [facility] Comment on above: Performed By: #### L [id number] ####J2Ee Developer: TRINITY CHASE ([id number])[address] Basophils/100 WBC (Bld) 0.1 % Normal 0.0-2.0 [facility] Comment on above: Performed By: #### L [id number] ####J2Ee Developer: TRINITY CAHSE ([id number])[facility])[address] [place] [address] Eosinophils (Bld) [#/Vol] 0.0 10*3/uL Normal 0.0-0.5 [facility] Comment on above: Performed By: #### L [id number] ####J2Ee Developer: TRINITY CHASE ([id number])[facility])[address] [place] [address] Eosinophils/100 WBC (Bld) 0.0 % Low 1.0-6.0 [facility] Comment on above: Performed By: #### L [id number] ####J2Ee Developer: TRINITY CHASE ([id number])[facility])[address] [place] [address] Erythrocyte distribution width (RBC) [Ratio] 13.5 % Normal 11.5-14.5 [facility] Comment on above: Performed By: #### L [id number] ####J2Ee Developer: TRINITY CHASE ([id number])[address] ERYTHROCYTE MEAN CORPUSCULAR HEMOGLOBIN CONCENTRATION (G/DL) BY AUTOMATED 32.7 % Normal 32.0-36.0 [facility] Comment on above: Performed By: #### L [id number] ####J2Ee Developer: TRINITY CHASE ([id number])[address] Hematocrit (Bld) [Volume fraction] 38.5 % Normal 35.0-47.0 [facility] Comment on above: Performed By: #### L [id number] ####J2Ee Developer: TRINITY CHASE ([id number])[address] Hemoglobin (Bld) [Mass/Vol] 12.6 g/dL Normal 11.7-16.0 [facility] Comment on above: Performed By: #### L [id number] ####J2Ee Developer: TRINITY CHASE ([id number])[address] Lymphocytes (Bld) [#/Vol] 0.6 10*3/uL Low 1.0-4.3 [facility] Comment on above: Performed By: #### L [id number] ####J2Ee Developer: TRINITY [id number])[facility])[address] [place] [address] Lymphocytes/100 WBC (Bld) 5.3 % Low 20.0-40.0 [facility] Comment on above: Performed By: #### L [id number] ####J2Ee Developer: TRINITY CHASE ([id number])[facility])[address] [place] [address] MCH (RBC) [Entitic mass] 30.4 pg Normal 26.0-34.0 [facility] Comment on above: Performed By: #### L [id number] ####J2Ee Developer: TRINITY CHASE ([id number])[facility])[address] [place] [address] MCV (RBC) [Entitic vol] 93.0 fL Normal 80.0-98.0 [facility] Comment on above: Performed By: #### L [id number] ####J2Ee Developer: TRINITY CHASE ([id number])[facility] ([facility])[address] [place] [address] Monocytes (Bld) [#/Vol] 0.6 10*3/uL Normal 0.0-0.8 [facility] Comment on above: Performed By: #### L [id number] ####J2Ee Developer: TRINITY CHASE ([id number])[facility])[address] [place] [address] Monocytes/100 WBC (Bld) 5.1 % Normal 2.0-10.0 [facility] Comment on above: Performed By: #### L [id number] ####J2Ee Developer: TRINITY CHASE ([id number])[facility])[address] [place] [address] Neutrophils (Bld) [#/Vol] 11.1 10*3/uL High 1.8-7.0 [facility] Comment on above: Performed By: #### L [id number] ####J2Ee Developer: TRINITY CHASE ([id number])[facility])[address] [place] [address] Neutrophils/100 WBC (Bld) 89.5 % High 40.0-80.0 [facility] Comment on above: Performed By: #### L [id number] ####J2Ee Developer: TRINITY CHASE ([id number])[facility])[address] [place] [address] NRBC (PER 100 WBCS) BY AUTOMATED COUNT 0.0 /100 WBCs Normal 0.0-2.0 [facility] Comment on above: Performed By: #### L [id number] ####J2Ee Developer: TRINITY CHASE ([id number])[facility])[address] [place] [address] Platelet mean volume (Bld) [Entitic vol] 6.9 fL Low 7.4-12.4 [facility] Comment on above: Performed By: #### L [id number] ####J2Ee Developer: TRINITY CHASE ([id number])[facility] ([facility])[address] [place] [address] Platelets (Bld) [#/Vol] 230 10*3/uL Normal 140-440 [facility] Comment on above: Performed By: #### L [id number] ####J2Ee Developer: TRINITY CHASE ([id number])[facility])[address] [place] [address] RBC (Bld) [#/Vol] 4.14 10*6/uL Normal 3.8-5.20 [facility] Comment on above: Performed By: #### L [id number] ####J2Ee Developer: TRINITY CHASE ([id number])[facility])[address] [place] [address] WBC (Bld) [#/Vol] 12.4 10*3/uL High 3.6-10.7 [facility] Comment on above: Performed By: #### L [id number] ####J2Ee Developer: TRINITY CHASE ([id number])[facility])[address] [place] [address] Laboratory - Coagulationon 0 2-08-2024 PT Coag (Bld) [Time] 10.6 s 9.0 - 1 2.0 s [facility] PROTHROMBIN TIMEon INR Coag (PPP) [Relative time] 1.0 {INR} Normal 0.9-1.1 [facility] Comment on above: Order Comment: If pa tient on coumadin within 4 days prior. Result Comment: Yassine mmended Anticoagulant Therapy: SEE BELOW ----- INR of 2.0 - 3.0 : - Prophylaxis of Venous Thrombosis (high-risk surgery) - Treatment of Venous Thrombosis - Treatment of Pulmonary Embolism (Includes tissue heart valves, Acute Myocardial Infarction to prevent systemic embolism, Valvular Heart Disease, and Atrial Fibrillation) ----- INR of 2.5 - 3.5 : - Mechanical Prosthetic Valves (high risk) - If oral anticoagulant therapy is used to prevent Myocardial Infarction Performed By: #### Idalmis [id number] ####J2Ee Developer: TRINITY CHASE ([id number])[address] PT Coag (PPP) [Time] 10.6 s Normal 9.0-12.0 [facility] Comment on above: Order Comment: If pa tient on coumadin within 4 days prior. Performed By: #### Idalmis [id number] ####J2Ee Developer: TRINITY CHASE ([id number])[facility])[address] [place] [address] PT Coag (Bld) [Time]on 08-20 INR Coag (PPP) [Relative time] 1.0 {INR} 0.9 - 1.1 [facility] Comment on above: Recommended Anticoag ulant Therapy: SEE BELOW ----- INR of 2.0 - 3.0 : - Prophylaxis of Venous Thrombosis (high-risk surgery) - Treatment of Venous Thrombosis - Treatment of Pulmonary Embolism (Includes tissue heart valves, Acute Myocardial Infarction to prevent systemic embolism, Valvular Heart Disease, and Atrial Fibrillation) ----- INR of 2.5 - 3.5 : - Mechanical Prosthetic Valves (high risk) - If oral anticoagulant therapy is used to prevent Myocardial Infarction Interpretation and review of laboratory results Normal [facility] Consulton 08-19-2023 Consult [facility] nsult Patient - Violetta Linder, Age - 63 y.o. - 1960 Room Number - [id number] Consulting - Agatha Alejo MD Primary Care Physician - BRIAN Sadler Date of Admission - 08/19/2023 9:37 AM Hospital Day - 0 Reason for Consult: Medical Management HISTORY OF PRESENT ILLNESS: Violetta is a 63 y.o. female pmhx below POD #0 Lumbar laminectomy and decompression. Per Orthopedic specialty documentation no intraoperative complication or concern reported. USACS consulted for Medical Management. Pt Hx significant for COPD. On arrival to , Pt is awake and conversant. Discussed Pt home medication - Pt wished to use her Annalisa MDI in place of this facility's formulary switch Dulera. Order was placed, however Pt realized her family had likely taken her medications at home. Is amenable to use of Dulera until able to get her home medication back. No other issues or concerns reported at present time Past Medical History: Past Medical History: Diagnosis Date Arthritis Asthma COPD (chronic obstructive pulmonary disease) ([facility]) Past Surgical History: Past Surgical History: Procedure Laterality Date CARDIAC CATHETERIZATION CARPAL TUNNEL RELEASE Bilateral MINIMALLY INVASIVE FORAMINOTOMY CERVICAL SPINE 08/19/2023 MICRODISCECTOMY, FORAMINOTOMY LUMBAR 3-4, LUMBAR 4-5 RIGHT - Right SPINAL FUSION Medications: acetaminophen, 1,000 mg, Oral, q6h [START ON 08/20/2023] ceFAZolin, 2 g, IntraVENous, q8h methocarbamol, 750 mg, Oral, 3 times per day lactated Ringer's, 50 mL/hr, Last Rate: 50 mL/hr (08/19/23 1815) PRN medications: HYDROmorphone OR HYDROmorphone, naloxone, ondansetron ODT OR ondansetron, oxyCODONE OR oxyCODONE Allergies: Amoxicillin, Dicloxacillin, and Ephedrine Social History: Social History Socioeconomic History Marital status: Spouse name: Not on file Number of children: Not on file Years of education: Not on file Highest education level: Not on file Occupational History Not on file Tobacco Use Smoking status: Every Day Packs/day: 0.50 Years: 30.00 Additional pack years: 0.00 Total pack years: 15.00 Types: Cigarettes Passive exposure: Never Smokeless tobacco: Never Tobacco comments: Trying to quit, down to 1-2 cigarettes per day now Vaping Use Vaping Use: Never used Substance and Sexual Activity Alcohol use: Not Currently Drug use: Not Currently Types: Marijuana Comment: used gummies in the past Sexual activity: Not on file Other Topics Concern Not on file Social History Narrative Not on file Social Determinants of Health Financial Resource Strain: Not on file Food Insecurity: Not on file Transportation Needs: Not on file Physical Activity: Not on file Stress: Not on file Social Connections: Not on file Intimate Partner Violence: Not on file Housing Stability: Not on file Family History: No family history on file. REVIEW OF SYSTEMS: 10 point ROS obtained, as per HPI, otherwise NEG Physical Exam: Vitals: BP 113/52 (BP Location: Left arm, Patient Position: Lying) Pulse 57 Temp 37.1 ?C (98.8 ?F) (Temporal) Resp 18 Ht 5' 2.99 (1.6 m) Wt 153 lb 3.5 oz (69.5 kg) SpO2 100% BMI 27.15 kg/m? BMI Classification: Overweight (BMI 25.0-29.9) Pulse Ox: SpO2 Av.3 % Min: 91 % Max: 100 % Supplemental O2: O2 Flow Rate (L/min): 2 L/min Physical Exam Constitutional: General: She is awake. HENT: Head: Normocephalic and atraumatic. Eyes: General: Vision grossly intact. Gaze aligned appropriately. Extraocular Movements: Extraocular movements intact. Pupils: Pupils are equal, round, and reactive to light. Cardiovascular: Rate and Rhythm: Normal rate and regular rhythm. Pulmonary: Breath sounds: Normal breath sounds. No wheezing, rhonchi or rales. Musculoskeletal: Comments: Post-operative low back discomfort Skin: General: Skin is warm and dry. Neurological: General: No focal deficit present. Mental Status: She is alert and oriented to person, place, and time. Cranial Nerves: Cranial nerves 2-12 are intact. Psychiatric: Behavior: Behavior is cooperative. LABS: No results found for this or any previous visit (from the past 24 hour(s)). Urine Culture: No results found for this or any previous visit. IMAGING: See report Assessment Data: (LOW: 2x CAT1 or independent historian MOD: 3x CAT1 or 1x CAT3 EXTENSIVE: 3x CAT1 and 1x CAT3) Acute, acute on chronic, unstable/uncontrolled chronic problems/diagnoses: S/P Lumbar laminectomy and decompression - Orthopedic surgical specialty managing - PRN analgesia - PT/OT consulted Stable chronic problems affecting care, new non-acute diagnoses: COPD - Use of home Breztri once available - BID Dulera - PRN albuterol - Supplemental O2 as needed to maintain SpO2 >90% Plan As a result of the above findings & factors, the following mgmt was pu (more content not included)... Normal [facility] IDNon 08-19-2023 IDN The patient is Moder ately Stable - Low risk of patient condition declining or worsening The patient's goals for the shift include pain control The clinical goals for the shift include pain control Over the shift, the patient did not make progress toward the following goals. Barriers to progression include . Recommendations to address these barriers include . [facility] No Panel Informationon 08-19 There is no interpre tation needed for this exam. IMAGING Nursing Noteon 08-19-2023 Nursing Note Assisted pt to turn onto left side [facility] Nursing Note Called for family to come back to see pt per pt request [facility] Nursing Note Called and provided update to family listed in chart for this visit [facility] Nursing Note Assisted pt to repos ition in bed [facility] Op Noteon 08-19-2023 Op Note OPERATIVE NOTE Patient Name: Violetta Linder : 1960 DATE OF PROCEDURE: 08/19/2023 SURGEON: AGATHA ALEJO MD PREOPERATIVE DIAGNOSES: Stenosis POSTOPERATIVE DIAGNOSES: Same PROCEDURE: Decompression foraminotomies L3-4 L4-5 right INDICATION FOR PROCEDURE: Stenosis DESCRIPTION OF PROCEDURE: Patient was taken the operating room timeout was done for patient procedure. Markers used to identify the appropriate level. Back is prepped and draped. Skin incision was made through the skin and subcutaneous tissue down the deep fascia. The fascia incised. We taken identify the spinous process of L4 under fluoroscopy. Soft tissue was stripped off of the L3-L4 and L4-L5 on the right side. A Poly retractor was put in at L3-4 on the right. The interlaminar window was opened with a preoperative curette. Hemilaminotomy inferior L3 superior L4 on the right carried out the identify the L3 and L4 pedicle. We undercut the lateral recess of the lateral medial facet this decompressing the traversing L for nerve root. Foraminotomies L3-4 on the right carried out with Kerrisons this decompressing the exiting L3 nerve root both of which were free Poly retractor was put in at L4-5 on the right. The interlaminar window was opened with a 3 oh curette. In the laminotomy inferior L4 superior L5 on the right carried out. We identified the L4 and L5 pedicle. We undercut the medial facet and decompress the traversing L5 nerve root which was free. Foraminotomies L4-5 on the right carried out with Kerrisons this decompressing the exiting L4 nerve root which was free. Hemostasis achieved wound irrigated muscle and deep fascia was closed with 1 Vicryl 0 Vicryl fat [address] [facility] ECG 12-LEADon 08-13-2023 ECG 12-LEAD IMPRESSION: Sinus rhythm Right axis deviation Consider anteroseptal infarct Electronically Signed On 08-13-2023 13:35:28 EST by August Lowe [facility] PREPROCINSon 08-12-2023 PREPROCINS Medication List Accurate as of August 12, 2023 1:27 PM. Always use your most recent med list. albuterol 108 (90 Base) MCG/ACT inhaler Notes to patient: Ok to take if needed day of surgery BreztrListia 160-9-4.8 MCG/ACT aerosol Generic drug: Nvosqsa-Kjonndguolm-Luerifuw ol Medication Adjustments for Surgery: Take morning of surgery Diclofenac Sodium 1 % gel Commonly known as: Voltaren Medication Adjustments for Surgery: Hold morning of surgery varenicline 1 MG tablet Commonly known as: Chantix Medication Adjustments for Surgery: Take morning of surgery Additional Instructions: You may take Tylenol for pain. NO Motrin, ibuprofen or Advil for 24 hours prior to surgery or longer if instructed by your surgeon. NO Aleve, Aspirin, or Naprosyn for 5 days prior to surgery or longer if instructed by your surgeon. Follow any instructions given to you by Dr. Alejo. Shower with shower kit provided to you before coming to the hospital. No makeup, lotion, powder, deodorant or body spays. No hair products. Remove all jewelry and leave it at home. Wear loose comfortable clothing to go home in. You may brush your teeth morning of surgery. Do not wear contacts day of surgery. No marijuana (THC), smoking or alcohol for 24 hours prior to surgery. Informed pt of need to refrain from smoking, vaping, using snuff or chew for 24 hours before surgery. Informed pt of anesthesia's right to cancel surgery if they have used these products. Pt verbalizes understanding. Please arrange for a responsible adult to drive you home after your surgery and that there is a responsible adult with you for 24 hours post discharge. If you have specific questions, please call your surgeon. You will receive a call the day before your surgery to verify your arrival time and date. You will be asked to arrive at least two hours prior to your scheduled surgery time. Please bring your [facility] folder and medication list with you day of surgery. We encourage you to write down any questions you may have for the surgeon, anesthesiologist, or other members of the surgical team and bring it with you the day of surgery. Please bring photo ID and insurance information. No food after midnight. You may have clear liquids up to 2 hours prior to surgery including: -water -apple or cranberry juice (NO orange juice) -black coffee or clear tea (NO creamer or milk) -soda (carbonated beverages) -sports drinks Before arriving to the hospital, have up to 16 ounces of your favorite clear fluid, preferably a sports drink such as Gatorade or Powerade. CUT OUT STITCHER AND PARKING IN THE MAIN DECK ARE FREE DAY OF SURGERY. PARKING IN THE DECK-- AFTER PARKING TAKE THE ELEVATOR TO LEVEL ONE AND TAKE THE BRIDGE TO THE HOSPITAL. GO TO THE RIGHT AND GO AROUND THE CORNER TO THE SAME DAY SURGERY DESK AND CHECK IN THERE. IF GOING IN THE MAIN ENTRANCE-- TURN LEFT AND GO DOWN THE VALDES TO THE H ELEVATORS AND TAKE THEM TO ONE, LEFT OFF THE ELEVATOR AND GO AROUND TO THE SAME DAY DESK AND CHECK IN. Normal [facility] EMERGENCY REPORTon 3 EMERGENCY REPORT [facility] EMERGENCY ROOM REPORT NAME ACCOUNT SEX AGE ADMIT DISCHARGE PT MED. RECORD# NUMBER DATE DATE TYPE NIYA [id number] Xiang 63 07/06/23 07/06/23 3 VIOLETTA [id number] ROOM: ER DATE OF : 1960 DICTATING PHYSICIAN: Andrews Lomas CHIEF COMPLAINT: Generalized illness with cough, headache and chills. HISTORY OF PRESENT ILLNESS: The patient states that over the last 3 days she has not felt well with headache and a cough. The cough is mostly nonproductive. She has had some chilling and sore throat. She feels a little short of breath at times. She has had some mild nausea but generally has been able to keep food and fluids down. PAST MEDICAL HISTORY: Significant for asthma and COPD. PAST SURGICAL HISTORY: She has had previous skin cancer removal. SOCIAL HISTORY: She lives at home. She does smoke a half pack a day. She drinks alcohol occasionally. 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 REVIEW OF SYSTEMS: Negative as mentioned above. PHYSICAL EXAMINATION: GENERAL: This is a 63-year-old female who is alert and appropriate. She does not appear toxic but uncomfortable. She has a frequent dry cough. SKIN: Her skin is pink, warm and dry without any rashes. HEENT: Pupils are equal, round, and reactive to light. Extraocular muscles are intact. Tympanic membranes, nose, mouth and throat are generally within normal limits. Slight redness to the pharynx. NECK: Neck is supple without adenopathy. LUNGS: Lungs are clear. No crackles or wheezes. CARDIAC: Cardiac examination is a regular rhythm without ectopy or murmurs. ABDOMEN: Abdomen is soft and nontender. EXTREMITIES: Good peripheral pulses and good capillary refill. VITAL SIGNS: Temperature is 97.9, pulse 111, respirations 14, blood pressure 117/77, and oxygen saturation 96%. DIAGNOSTIC DATA: The patient had influenza and COVID swabs obtained. These were both negative. EMERGENCY DEPARTMENT COURSE AND TREATMENT: She does have a prescription for cefuroxime that she has at home. I recommended that she take that. I did give her a prescription for Tessalon for cough and slip to be off work today. She is to follow up with her family doctor in 1-2 days of no better, returning if symptoms worsen. DIAGNOSIS: Upper respiratory infection/pharyngitis and cough. Page 1 of 2 VIOLETTA LINDER Emergency Room Report VIOLETTA LINDER : 1960 Dictated By: Andrews Lomas MD 07/06/23 14:50 JOB #: [id number] Transcribed By: [email or web address] 07/07/23 09:45 Electronically signed by: FELIPE Lomas M.D. 07/11/23 07:20 Page 2 of 2 NIYAVIOLETTA COATES Emergency Room Report Normal [facility] CHEST 2 VIEWSon 07-06-2023 CHEST 2 VIEWS [place] [address] Patient: VIOLETTA LINDER Phone#: : 1960 Age: 63 Gender: F Pt. Type: ER Account: [id number] Location: [facility] Ordering: ANDREWS LOMAS Exam Date: 07/06/2023/11:38 Family Phys: EDYTA NICHOLE Charge Code: [id number] Physician: [place] Order #: [id number] Dose#: PROCEDURE: X-RAY CHEST 2 VIEWS COMPARISON: [facility], XR, CHEST 2 VIEWS, 11/12/2021, 10:02. INDICATIONS: Cough. FINDINGS: LUNGS: Normal. No significant pulmonary parenchymal abnormalities. VASCULATURE: Normal. Unremarkable pulmonary vasculature. CARDIAC: Normal. No cardiac silhouette abnormality or cardiomegaly. MEDIASTINUM: Normal. No visible mass or adenopathy. PLEURA: Normal. No effusion or pleural thickening. BONES: Normal. No fracture or visible bony lesion. OTHER: Negative. CONCLUSION: No acute disease. Dictated by: Denise Genao MD on 07/06/2023 at 13:08 Approved by: Denise Genao MD on 07/06/2023 at 13:08 Normal [facility] CORONAVIRUS (SARS) ANTIGEN T ESTon 07-06-2023 EXTERNAL QC DONE? YES Normal [facility] Comment on above: Performed By: #### 2 [id number] #### [facility],[address] [place] [address] 37003 INTERNAL CONTROL PASS Normal [facility] Comment on above: Performed By: #### 2 62761 #### [facility],[address] [place] [address] 96377 SARS ANTIGEN Negative Normal NORMAL: NEGATIVE [facility] Comment on above: Performed By: #### 2 47207 #### [facility],[address] [place] [address] 57074 SEND TO IC? NO Normal [facility] Comment on above: Result Comment: SARS -CoV-2 THIS TEST IS BEING USED UNDER THE FDA EUA PROCEDURE. THIS ASSAY HAS BEEN VALIDATED AT [facility] FOR USE WITH NASAL AND NASOPHARYNGEAL SWAB SPECIMENS. INTERPRETIVE DATA TEST RESULTS SHOULD ALWAYS BE CONSIDERED IN THE CONTEXT OF CLINICAL OBSERVATIONS AND EPIDEMIOLOGICAL DATA IN MAKING FINAL DIAGNOSIS AND PATIENT MANAGEMENT DECISIONS. PATIENT MANAGEMENT SHOULD FOLLOW CURRENT CDC GUIDELINES. THE JHON SARS ANTIGEN TANI DOES NOT DIFFERENTIATE BETWEEN SARS-CoV & SARS-CoV-2. A POSITIVE TEST RESULT INDICATES THE PRESENCE OF SARS-CoV-2 NUCLEOCAPSID PROTEIN ANTIGEN, AND THE PATIENT IS INFECTED WITH THE VIRUS AND PRESUMED TO BE CONTAGIOUS. A NEGATIVE TEST RESULT FOR THIS TEST MEANS THAT SARS-CoV-2 NUCLEOCAPSID PROTEIN ANTIGEN WAS NOT PRESENT IN THE SPECIMEN ABOVE THE LIMIT OF DETECTION. HOWEVER, A NEGATIVE RESULT DOES NOT RULE OUT COVID-19 AND SHOULD NOT BE USED THE SOLE BASIS FOR TREATMENT OR PATIENT MANAGEMENT DECISIONS. A NEGATIVE RESULT DOES NOT EXCLUDE THE POSSIBILITY OF COVID-19. NEGATIVE RESULTS, FROM PATIENTS WITH SYMPTOM ONSET BEYOND FIVE DAYS, SHOULD BE TREATED PRESUMPTIVE AND CONFIRMATION WITH A MOLECULAR ASSAY, IF NECESSARY, FOR PATIENT MANAGEMENT, MAY BE PERFORMED. WHEN DIAGNOSTIC TESTING IS NEGATIVE, THE POSSIBLILTY OF A FALSE NEGATIVE RESULT SHOULD BE CONSIDERED IN THE CONTEXT OF A PATIENT'S RECENT EXPOSURES AND THE PRESENCE OF CLINICAL SIGNS AND SYMPTOMS CONSISTENT WITH COVID-19. THE POSSIBILITY OF A FALSE NEGATIVE RESULT SHOULD ESPECIALLY BE CONSIDERED IF THE PATIENT'S RECENT EXPOSURES OR CLINICAL PRESENTATION INDICATE THAT COVID-19 IS LIKELY, AND DIAGNOSTIC TESTS FOR OTHER CAUSES OF ILLNESS (e.g., OTHER RESPIRATORY ILLNESS) ARE NEGATIVE. IF COVID-19 IS STILL SUSPECTED BASED ON EXPOSURE HISTORY TOGETHER WITH OTHER CLINICAL FINDINGS, RE-TESTING SHOULD BE CONSIDERED BY HEALTHCARE PROVIDERS IN CONSULTATION WITH PUBLIC HEALTH AUTHORITIES. Performed By: #### 2 [id number] #### [facility],[address] [place] [address] 49567 INFLUENZA VIRUS RAPID A/Bon 07-06-2023 INFLUENZA VIRUS RAPID A/B INFLUENZA A NEGATIVE INFLUENZA B NEGATIVE INTERNAL NEG QC PASS INTERNAL POS QC PASS EXTERNAL QC DONE? YES SEND TO IC? NO A NEGATIVE TEST RESULT DOES NOT EXCLUDE INFECTION WITH INFLUENZA A OR B. THEREFORE, THE RESULTS OBTAINED FROM THIS FLU TEST SHOULD BE USED IN CONJUCTION WITH CLINICAL FINDINGS TO MAKE AN ACCURATE DIAGNOSIS. A POSITIVE RESULT DOES NOT RULE OUT CO-INFECTIONS WITH OTHER PATHOGENS OR IDENTIFY ANY SPECIFIC INFLUENZA A VIRUS SUBTYPE.CO-INFECTION WITH INFLUENZA A AND B IS RARE. IT IS RECOMMENDED THAT DUAL POSITIVE RESULTS BE CONFIRMED BY VIRAL CULTURE OR AN FDA-CLEARED INFLUENZA A AND B MOLECULAR ASSAY. INDIVIDUALS WHO HAVE RECEIVED NASALLY ADMINISTERED INFLUENZA A VACCINE MAY TEST POSITIVE IN COMMERCIALLY AVAILABLE INFLUENZA RAPID DIAGNOSTIC TESTS FOR UP TO THREE DAYS. RESULT CRITICAL? NO Normal [facility] Comment on above: Performed By: #### 2 [id number] #### [facility],[address] [place] [address]7551 3D MAMM BILAT SCREENon 05-18 3D MAMM BILAT SCREEN [address] [address] Patient: VIOLETTA LINDER Phone#: : 1960 Age: 63 Gender: F Pt. Type: Account: [id number] Location: [facility] Ordering: BEATA SCHWARZ Exam Date: 05/15/2023/14:58 Family Phys: Charge Code: 822161 Physician: [place] Order #: [id number] Dose#: PROCEDURE: BILATERAL SCREENING BREAST TOMOSYNTHESIS MAMMOGRAM WITH CAD COMPARISON: [facility], 3D BILAT SCREEN, 05/09/2022, 13:49. INDICATIONS: Screening. BREAST COMPOSITION: Extremely dense, which lowers the sensitivity of mammography. FINDINGS: DIAGNOSTIC CATEGORY 1--NEGATIVE NO CHANGE FROM COMPARISON ASSESSMENT. RIGHT BREAST: No significant suspicious finding. No significant change has occurred. LEFT BREAST: No significant suspicious finding. No significant change has occurred. RECOMMENDATIONS: ROUTINE MAMMOGRAM AND CLINICAL EVALUATION IN 12 MONTHS. PLEASE NOTE: A NORMAL MAMMOGRAM DOES NOT EXCLUDE THE POSSIBILITY OF BREAST CANCER. A CLINICALLY SUSPICIOUS PALPABLE LUMP SHOULD BE BIOPSIED. THIS FACILITY UTILIZES A REMINDER SYSTEM TO ENSURE THAT ALL PATIENTS RECEIVE REMINDER LETTERS FOR APPOINTMENTS. THIS INCLUDES REMINDERS FOR ROUTINE MAMMOGRAMS, DIAGNOSITC MAMMOGRAMS, OR OTHER BREAST IMAGING INTERVENTIONS WHEN APPROPRIATE. THIS PATIENT WILL BE PLACED IN THE APPROPRIATE REMINDER SYSTEM. Dictated by: Denise Genao MD on 05/15/2023 at 15:46 Approved by: Denise Genao MD on 05/15/2023 at 15:50 Normal [facility] BMP with eGFRon 03-31-2023 AGE 63 years Normal [facility] Comment on above: Performed By: #### 2 47865 #### [facility],[address] [place] [address] 18438 Anion gap [Moles/Vol] 13 mmol/L Normal 10 - 20 [facility] Comment on above: Performed By: #### 2 71657 #### [facility],[address] [place] [address] 99400 BMP with eGFR Normal [facility] Comment on above: Result Comment: BASI C METABOLIC PANEL Performed By: #### 2 86173 #### [facility],[address] [place] [address] 04892 Calcium [Mass/Vol] 8.7 mg/dL Normal 8.5 - 10.1 [facility] Comment on above: Performed By: #### 2 33691 #### [facility],[address] [place] [address] 82507 Chloride [Moles/Vol] 106 mmol/L Normal 98 - 107 [facility] Comment on above: Performed By: #### 2 65782 #### [facility],[address] [place] [address] 28694 CO2 [Moles/Vol] 28.4 mmol/L Normal 21.0 - 32.0 [facility] Comment on above: Performed By: #### 2 39456 #### [facility],[address] [place] [address] 86058 Creatinine [Mass/Vol] 0.61 mg/dL Normal 0.55 - 1.02 [facility] Comment on above: Performed By: #### 2 42292 #### [facility],[address] [place] [address] 61932 GFR/1.73 sq M.predicted among non-blacks MDRD (S/P/Bld) [Vol rate/Area] mL/min/{1.73_m2} Normal 60 - 999 [facility] Comment on above: Performed By: #### 2 06279 #### [facility],[address] [place], [place] [id number] Result Comment: ACCO RDING TO THE NATIONAL KIDNEY DISEASE EDUCATION PROGRAM(NKDE), A NORMAL eGFR IS A VALUE GREATER THAN OR EQUAL TO 60 ML/MIN/1.73 SQ METERS. CHRONIC KIDNEY DISEASE: <60mL/MIN/1.73 SQ METERS KIDNEY FAILURE: <15mL/MIN/1.73 SQ METERS THIS TEST SHOULD ONLY BE USED FOR PATIENTS 18 YEARS OF AGE AND OLDER. Glucose [Mass/Vol] 124 mg/dL High 74 - 106 [facility] Comment on above: Performed By: #### 2 36955 #### [facility],[address] [place] [address] 08145 Potassium [Moles/Vol] 4.6 mmol/L Normal 3.5 - 5.1 [facility] Comment on above: Performed By: #### 2 47616 #### [facility],[address] [place] [address] 91289 Sodium [Moles/Vol] 143 mmol/L Normal 136 - 145 [facility] Comment on above: Performed By: #### 2 69837 #### [facility],[address] [place] [address] 68211 Urea nitrogen [Mass/Vol] 10 mg/dL Normal 7 - 18 [facility] Comment on above: Performed By: #### 2 03948 #### [facility],[address] [place] [address] CBC + DIFFon 03-31-2023 Baso # 0.00 x10EE3/UL Normal 0.00 - 0.10 [facility] Comment on above: Performed By: #### 2 44766 #### [facility],[address] [place] [address] 22496 Basophils/100 WBC (Bld) 0.1 % Normal 0.0 - 2.0 [facility] Comment on above: Performed By: #### 2 33103 #### [facility],[address] [place] [address] CBC + DIFF Normal [facility] Comment on above: Result Comment: CBC- COMPLETE BLOOD COUNT Performed By: #### 2 09820 #### [facility],[address] [place] [address] EO # 0.00 x10EE3/UL Normal 0.00 - 0.50 [facility] Comment on above: Performed By: #### 2 72771 #### [facility],[address] [place] [address] 78285 Eosinophils/100 WBC (Bld) 0.0 % Normal 0.0 - 7.0 [facility] Comment on above: Performed By: #### 2 01094 #### [facility],[address] [place], [place] [id number] Erythrocyte distribution width (RBC) [Ratio] 13.8 % Normal 12.0 - 15.6 [facility] Comment on above: Performed By: #### 2 50162 #### [facility],[address] [place] [address] Hematocrit (Bld) [Volume fraction] 38.5 % Normal 34.0 - 46.0 [facility] Comment on above: Performed By: #### 2 58230 #### [facility],[address] [place], [place] [id number] Hemoglobin (Bld) [Mass/Vol] 12.8 g/dL Normal 12.0 - 16.0 [facility] Comment on above: Performed By: #### 2 62434 #### [facility],[address] [place] [address] Lymph # 0.60 x10EE3/UL Low 0.80 - 2.80 [facility] Comment on above: Performed By: #### 2 72238 #### [facility],[address] [place] [address] Lymphocytes/100 WBC (Bld) 7.7 % Low 20.0 - 45.0 [facility] Comment on above: Performed By: #### 2 04709 #### [facility],[address] [place] [address] MANUAL DIFF N/A Normal [facility] Comment on above: Performed By: #### 2 23211 #### [facility],[address] [place] [address] MCH (RBC) [Entitic mass] 32 pg Normal 27 - 33 [facility] Comment on above: Performed By: #### 2 56883 #### [facility],[address] [place] [address] MCHC 33 X10 3 Normal 32 - 36 [facility] Comment on above: Performed By: #### 2 12081 #### [facility],[address] [place], [place] [phone] MCV (RBC) [Entitic vol] 95 fL Normal 80 - 99 [facility] Comment on above: Performed By: #### 2 94145 #### [facility],[address] [place], [place] [phone] Wetzel # 0.20 x10EE3/UL Normal 0.20 - 1.00 [facility] Comment on above: Performed By: #### 2 22570 #### [facility],[address],[place] [address] MONOS % 2.3 % Normal 0.0 - 10.0 [facility] Comment on above: Performed By: #### 2 80308 #### [facility],[address] [place] [address]3485 Morphology Jorge (Bld) [Interp] N/A Normal [facility] Comment on above: Result Comment: {CD] Performed By: #### 2 93317 #### [facility],[address] [place] [address] 63853 Neut # 6.60 x10EE3/UL Normal 1.50 - 7.10 [facility] Comment on above: Performed By: #### 2 31127 #### [facility],[address] [place] [address] 42877 Neutrophils/100 WBC (Bld) 89.9 % High 46.0 - 76.0 [facility] Comment on above: Performed By: #### 2 48639 #### [facility],[address] [place], [place] [phone] PLATELET 266 x10EE3/UL Normal 150 - 450 [facility] Comment on above: Performed By: #### 2 68175 #### [facility],[address] [place] [address] 82538 Platelet mean volume (Bld) [Entitic vol] 7.3 fL Normal 6.6 - 10.5 [facility] Comment on above: Result Comment: AUTO MATED DIFFERENTIAL Performed By: #### 2 03193 #### [facility],[address] [place] [address] 81023 RBC 4.06 x 10EE6/UL Low 4.10 - 5.30 [facility] Comment on above: Performed By: #### 2 20644 #### [facility],[address] [place] [address]34 WBC 7.4 x 10EE3/UL Normal 4.5 - 10.8 [facility] Comment on above: Performed By: #### 2 06880 #### [facility],[address] [place] [address] CORONAVIRUS PCR - [facility] 03-31-2023 SARS-CoV-2 (COVID-19) RNA MUSTAPHA+probe Ql (Unsp spec) Negative Normal NORMAL: NEGATIVE [facility] Comment on above: Performed By: #### 2 43801 #### [facility],[address] [place] [address] SEND TO IC? NO Normal [facility] Comment on above: Result Comment: RESU LTS FAXED TO INFECTION CONTROL. SARS-CoV-2 THIS TEST IS BEING USED UNDER THE FDA EUA PROCEDURE. THIS ASSAY HAS BEEN VALIDATED IN THE [facility] FOR USE WITH NASOPHARYNGEAL SPECIMENS IN [facility]. INTERPRETIVE DATA LABORATORY TEST RESULTS SHOULD ALWAYS BE CONSIDERED IN THE CONTEXT OF CLINICAL OBSERVATIONS AND EPIDEMIOLOGICAL DATA IN MAKING FINAL DIAGNOSIS AND PATIENT MANAGEMENT DECISIONS. PATIENT MANAGEMENT SHOULD FOLLOW CURRENT CDC GUIDELINES. A POSITIVE TEST RESULT FOR COVID-19 INDICATES THAT RNA FROM SARS-CoV-2 WAS DETECTED, AND THE PATIENT IS INFECTED WITH THE VIRUS AND PRESUMED TO BE CONTAGIOUS. A NEGATIVE TEST RESULT FOR THIS TEST MEANS THAT SARS-CoV-2 RNA WAS NOT PRESENT IN THE SPECIMEN ABOVE THE LIMIT OF DETECTION. HOWEVER, A NEGATVIE RESULT DOES NOT RULE OUT COVID-19 AND SHOULD NOT BE USED THE SOLE BASIS FOR TREATMENT OR PATIENT MANAGEMENT DECISIONS. A NEGATIVE RESULT DOES NOT EXCLUDE THE POSSIBILITY OF COVID-19. WHEN DIAGNOSTIC TESTING IS NEGATIVE, THE POSSIBLILTY OF A FALSE NEGATIVE RESULT SHOULD BE CONSIDERED IN THE CONTEXT OF A PATIENT'S RECENT EXPOSURES AND THE PRESENCE OF CLINICAL SIGNS AND SYMPTOMS CONSISTENT WITH COVID-19. THE POSSIBILITY OF A FALSE NEGATIVE RESULT SHOULD ESPECIALLY BE CONSIDERED IF THE PATIENT'S RECENT EXPOSURES OR CLINICAL PRESENTATION INDICATE THAT COVID-19 IS LIKELY, AND DIAGNOSTIC TESTS FOR OTHER CAUSES OF ILLNESS (e.g., OTHER RESPIRATORY ILLNESS) ARE NEGATIVE. IF COVID-19 IS STILL SUSPECTED BASED ON EXPOSURE HISTORY TOGETHER WITH OTHER CLINICAL FINDINGS, RE-TESTED SHOULD BE CONSIDERED BY HEALTHCARE PROVIDERS IN CONSULTATION WITH PUBLIC HEALTH AUTHORITIES. Performed By: #### 2 55474 #### [facility],[address] [place] [address] TROPONIN I, HIGH SENSITIVITY on 03-31-2023 HS TROPONIN <4.0 Normal 0.0 - 51.4 [facility] Comment on above: Performed By: #### 2 44520 #### [facility],[address] [place] [address] HS TROPONIN <4.0 Normal 0.0 - 51.4 [facility] Comment on above: Performed By: #### 2 94326 #### [facility],[address] [place] [address] CBC + DIFFon 03-30-2023 Baso # 0.00 x10EE3/UL Normal 0.00 - 0.10 [facility] Comment on above: Performed By: #### 2 32888 #### [facility],[address] [place], [place] [phone] Basophils/100 WBC (Bld) 0.1 % Normal 0.0 - 2.0 [facility] Comment on above: Performed By: #### 2 62560 #### [facility],[address] [place] [address] CBC + DIFF Normal [facility] Comment on above: Result Comment: CBC- COMPLETE BLOOD COUNT Performed By: #### 2 89161 #### [facility],[address] [place] [address] EO # 0.00 x10EE3/UL Normal 0.00 - 0.50 [facility] Comment on above: Performed By: #### 2 99400 #### [facility],[address] [place], [place] [phone] Eosinophils/100 WBC (Bld) 0.0 % Normal 0.0 - 7.0 [facility] Comment on above: Performed By: #### 2 29205 #### [facility],[address] [place] [address] Erythrocyte distribution width (RBC) [Ratio] 13.5 % Normal 12.0 - 15.6 [facility] Comment on above: Performed By: #### 2 46353 #### [facility],[address] [place] [address] 60155 Hematocrit (Bld) [Volume fraction] 40.8 % Normal 34.0 - 46.0 [facility] Comment on above: Performed By: #### 2 30584 #### [facility],[address] [place] [address] 55889 Hemoglobin (Bld) [Mass/Vol] 13.3 g/dL Normal 12.0 - 16.0 [facility] Comment on above: Performed By: #### 2 51352 #### [facility],[address] [place] [address] Lymph # 0.50 x10EE3/UL Low 0.80 - 2.80 [facility] Comment on above: Performed By: #### 2 66073 #### [facility],[address] [place], [place] [phone] Lymphocytes/100 WBC (Bld) 4.3 % Low 20.0 - 45.0 [facility] Comment on above: Performed By: #### 2 41836 #### [facility],[address] [place] [address] 65409 MANUAL DIFF N/A Normal [facility] Comment on above: Performed By: #### 2 09395 #### [facility],[address] [place], [place] [phone] MCH (RBC) [Entitic mass] 31 pg Normal 27 - 33 [facility] Comment on above: Performed By: #### 2 96887 #### [facility],[address] [place] [address] 70863 MCHC 33 X10 3 Normal 32 - 36 [facility] Comment on above: Performed By: #### 2 41575 #### [facility],[address] [place] [address] 14597 MCV (RBC) [Entitic vol] 95 fL Normal 80 - 99 [facility] Comment on above: Performed By: #### 2 86417 #### [facility],[address] [place] [address] 72820 Wetzel # 0.60 x10EE3/UL Normal 0.20 - 1.00 [facility] Comment on above: Performed By: #### 2 67218 #### [facility],[address] [place] [address] 88279 MONOS % 5.3 % Normal 0.0 - 10.0 [facility] Comment on above: Performed By: #### 2 80349 #### [facility],[address] [place] [address] 04835 Morphology Jorge (Bld) [Interp] N/A Normal [facility] Comment on above: Result Comment: {CD] Performed By: #### 2 79459 #### [facility],[address] [place] [address] 01354 Neut # 9.70 x10EE3/UL High 1.50 - 7.10 [facility] Comment on above: Performed By: #### 2 73329 #### [facility],[address] [place] [address] 85650 Neutrophils/100 WBC (Bld) 90.3 % High 46.0 - 76.0 [facility] Comment on above: Performed By: #### 2 56430 #### [facility],[address] [place] [address] 54573 PLATELET 304 x10EE3/UL Normal 150 - 450 [facility] Comment on above: Performed By: #### 2 85664 #### [facility],[address] [place] [address] 95252 Platelet mean volume (Bld) [Entitic vol] 7.2 fL Normal 6.6 - 10.5 [facility] Comment on above: Result Comment: AUTO MATED DIFFERENTIAL Performed By: #### 2 24119 #### [facility],[address] [place] [address] 67614 RBC 4.31 x 10EE6/UL Normal 4.10 - 5.30 [facility] Comment on above: Performed By: #### 2 98402 #### [facility],[address] [place] [address] 84624 WBC 10.8 x 10EE3/UL Normal 4.5 - 10.8 [facility] Comment on above: Performed By: #### 2 28342 #### [facility],[address] [place] [address] 06102 CMP with eGFRon 03-30-2023 AGE 63 years Normal [facility] Comment on above: Performed By: #### 2 82867 #### [facility],[address] [place] [address] 84148 Albumin [Mass/Vol] 3.9 g/dL Normal 3.4 - 5.0 [facility] Comment on above: Performed By: #### 2 86650 #### [facility],[address] [place], [place] [id number] Albumin/Globulin [Mass ratio] 1.3 {ratio} Normal 0.9 - 1.6 [facility] Comment on above: Performed By: #### 2 05745 #### [facility],[address] [place] [address] 95812 ALK PHOS 70 U/L Normal 46 - 116 [facility] Comment on above: Performed By: #### 2 [id number] #### [facility],[address] [place] [address] [id number] ALT [Catalytic activity/Vol] 27 U/L Normal 14 - 59 [facility] Comment on above: Performed By: #### 2 50236 #### [facility],[address] [place] [address] 73032 Anion gap [Moles/Vol] 12 mmol/L Normal 10 - 20 [facility] Comment on above: Performed By: #### 2 17257 #### [facility],[address] [place] [address] 56945 AST [Catalytic activity/Vol] 14 U/L Normal 13 - 39 [facility] Comment on above: Performed By: #### 2 13599 #### [facility],[address] [place] [address] 18526 B/C RATIO 21 ratio Normal 0 - 30 [facility] Comment on above: Performed By: #### 2 02924 #### [facility],[address] [place] [address] 54356 Bilirubin [Mass/Vol] 0.2 mg/dL Normal 0.2 - 1.0 [facility] Comment on above: Performed By: #### 2 93600 #### [facility],[address] [place], [place] [id number] Calcium [Mass/Vol] 8.8 mg/dL Normal 8.5 - 10.1 [facility] Comment on above: Performed By: #### 2 71357 #### [facility],[address] [place], [place] [id number] Chloride [Moles/Vol] 100 mmol/L Normal 98 - 107 [facility] Comment on above: Performed By: #### 2 52257 #### [facility],[address] [place] [address] 66870 CMP with eGFR Normal [facility] Comment on above: Result Comment: COMP REHENSIVE METABOLIC PANEL Performed By: #### 2 14150 #### [facility],[address] [place] [address] 79749 CO2 [Moles/Vol] 29.4 mmol/L Normal 21.0 - 32.0 [facility] Comment on above: Performed By: #### 2 28889 #### [facility],[address] [place] [address] 36265 Creatinine [Mass/Vol] 0.85 mg/dL Normal 0.55 - 1.02 [facility] Comment on above: Performed By: #### 2 15883 #### [facility],[address] [place] [address] 65577 GFR/1.73 sq M.predicted among non-blacks MDRD (S/P/Bld) [Vol rate/Area] mL/min/{1.73_m2} Normal 60 - 999 [facility] Comment on above: Performed By: #### 2 84255 #### [facility],[address] [place] [address] Result Comment: ACCO RDING TO THE NATIONAL KIDNEY DISEASE EDUCATION PROGRAM(NKDE), A NORMAL eGFR IS A VALUE GREATER THAN OR EQUAL TO 60 ML/MIN/1.73 SQ METERS. CHRONIC KIDNEY DISEASE: <60mL/MIN/1.73 SQ METERS KIDNEY FAILURE: <15mL/MIN/1.73 SQ METERS THIS TEST SHOULD ONLY BE USED FOR PATIENTS 18 YEARS OF AGE AND OLDER. Globulin (S) [Mass/Vol] 3.1 g/dL Normal 1.5 - 3.8 [facility] Comment on above: Performed By: #### 2 28592 #### [facility],[address] [place] [address] 14846 Glucose [Mass/Vol] 117 mg/dL High 74 - 106 [facility] Comment on above: Performed By: #### 2 53629 #### [facility],[address] [place] [address] 33356 Potassium [Moles/Vol] 4.7 mmol/L Normal 3.5 - 5.1 [facility] Comment on above: Performed By: #### 2 71532 #### [facility],[address] [place] [address] 85045 Protein [Mass/Vol] 7.0 g/dL Normal 6.4 - 8.2 [facility] Comment on above: Performed By: #### 2 21575 #### [facility],[address] [place] [address] 90068 Sodium [Moles/Vol] 137 mmol/L Normal 136 - 145 [facility] Comment on above: Performed By: #### 2 88423 #### [facility],[address] [place] [address] 18954 Urea nitrogen [Mass/Vol] 18 mg/dL Normal 7 - 18 [facility] Comment on above: Performed By: #### 2 20836 #### [facility],[address] [place] [address] 59889 CORONAVIRUS (SARS) ANTIGEN T ESTon 03-30-2023 EXTERNAL QC DONE? YES Normal [facility] Comment on above: Performed By: #### 2 80846 #### [facility],[address] [place] [address] INTERNAL CONTROL PASS Normal [facility] Comment on above: Performed By: #### 2 45337 #### [facility],[address] [place] [address] 97814 SARS ANTIGEN Negative Normal NORMAL: NEGATIVE [facility] Comment on above: Performed By: #### 2 54239 #### [facility],[address] [place], [place] [id number] SEND TO ? YES Normal [facility] Comment on above: Result Comment: SARS -CoV-2 THIS TEST IS BEING USED UNDER THE FDA EUA PROCEDURE. THIS ASSAY HAS BEEN VALIDATED AT [facility] FOR USE WITH NASAL AND NASOPHARYNGEAL SWAB SPECIMENS. INTERPRETIVE DATA TEST RESULTS SHOULD ALWAYS BE CONSIDERED IN THE CONTEXT OF CLINICAL OBSERVATIONS AND EPIDEMIOLOGICAL DATA IN MAKING FINAL DIAGNOSIS AND PATIENT MANAGEMENT DECISIONS. PATIENT MANAGEMENT SHOULD FOLLOW CURRENT CDC GUIDELINES. THE JHON SARS ANTIGEN TANI DOES NOT DIFFERENTIATE BETWEEN SARS-CoV & SARS-CoV-2. A POSITIVE TEST RESULT INDICATES THE PRESENCE OF SARS-CoV-2 NUCLEOCAPSID PROTEIN ANTIGEN, AND THE PATIENT IS INFECTED WITH THE VIRUS AND PRESUMED TO BE CONTAGIOUS. A NEGATIVE TEST RESULT FOR THIS TEST MEANS THAT SARS-CoV-2 NUCLEOCAPSID PROTEIN ANTIGEN WAS NOT PRESENT IN THE SPECIMEN ABOVE THE LIMIT OF DETECTION. HOWEVER, A NEGATIVE RESULT DOES NOT RULE OUT COVID-19 AND SHOULD NOT BE USED THE SOLE BASIS FOR TREATMENT OR PATIENT MANAGEMENT DECISIONS. A NEGATIVE RESULT DOES NOT EXCLUDE THE POSSIBILITY OF COVID-19. NEGATIVE RESULTS, FROM PATIENTS WITH SYMPTOM ONSET BEYOND FIVE DAYS, SHOULD BE TREATED PRESUMPTIVE AND CONFIRMATION WITH A MOLECULAR ASSAY, IF NECESSARY, FOR PATIENT MANAGEMENT, MAY BE PERFORMED. WHEN DIAGNOSTIC TESTING IS NEGATIVE, THE POSSIBLILTY OF A FALSE NEGATIVE RESULT SHOULD BE CONSIDERED IN THE CONTEXT OF A PATIENT'S RECENT EXPOSURES AND THE PRESENCE OF CLINICAL SIGNS AND SYMPTOMS CONSISTENT WITH COVID-19. THE POSSIBILITY OF A FALSE NEGATIVE RESULT SHOULD ESPECIALLY BE CONSIDERED IF THE PATIENT'S RECENT EXPOSURES OR CLINICAL PRESENTATION INDICATE THAT COVID-19 IS LIKELY, AND DIAGNOSTIC TESTS FOR OTHER CAUSES OF ILLNESS (e.g., OTHER RESPIRATORY ILLNESS) ARE NEGATIVE. IF COVID-19 IS STILL SUSPECTED BASED ON EXPOSURE HISTORY TOGETHER WITH OTHER CLINICAL FINDINGS, RE-TESTING SHOULD BE CONSIDERED BY HEALTHCARE PROVIDERS IN CONSULTATION WITH PUBLIC HEALTH AUTHORITIES. Performed By: #### 2 96166 #### [facility],[address] [place] [address] CT CHEST (PE PROTOCOL)on CT CHEST (PE PROTOCOL) [place] [address] Patient: VIOLETTA LINDER Phone#: : 1960 Age: 63 Gender: F Pt. Type: ER Account: [id number] Location: [facility] Ordering: TARA LEON Exam Date: 03/30/2023/16:35 Family Phys: EDYTA NICHOLE Charge Code: 247989 Physician: [place] Order #: [id number] Dose#: 4.2 mGy PROCEDURE: CT CHEST WITH CONTRAST FOR PE COMPARISON: None. INDICATIONS: Cough. TECHNIQUE: After obtaining the patient's consent, CT images were obtained with non-ionic intravenous contrast material. Multi-planar images were created to optimize visualization of vascular anatomy with MPR/MIPS and 3D imaging. All CT scans at this facility use dose modulation, iterative reconstruction, and/or weight based dosing when appropriate to reduce radiation dose to as low as reasonably achievable. IV CONTRAST: Omnipaque 350,100ml TOTAL DOSE: 4.2 CTDIvol(mGy) FINDINGS: VASCULATURE: Normal. No visible pulmonary arterial thrombus or attenuation. AORTA: Normal. No aneurysm or dissection. LUNGS: Normal. No visible pulmonary disease. MARY: Normal. No mass or adenopathy. MEDIASTINUM: Normal. No mass or adenopathy. CARDIAC: Normal. No enlargement, pericardial thickening, or significant calcification. PLEURA: Normal. No mass or effusion. CHEST WALL: Normal. No mass or axillary adenopathy. LIMITED ABDOMEN: Normal. Limited images of the upper abdomen are unremarkable. BONES: Normal. No bony lesion or fracture. OTHER: Negative. CONCLUSION: 1. There is no evidence of acute pulmonary abnormality. 2. There is no evidence of pulmonary embolus. Dictated by: Denise Genao MD on 03/30/2023 at 17:04 Continued Report - Page 2 of 2 Patient: VIOLETTA LINDER Phone#: : 1960 Age: 63 Gender: F Pt. Type: ER Account: [id number] Location: [facility] Ordering: TARA LEON Exam Date: 03/30/2023/16:35 Family Phys: EDYTA NICHOLE Charge Code: [id number] Physician: [place] Order #: [id number] Dose#: 4.2 mGy Approved by: Denise Genao MD on 03/30/2023 at 17:08 Normal [facility] LACTATEon 03-30-2023 Lactate [Moles/Vol] 2.0 mmol/L Normal 0.4 - 2.0 [facility] Comment on above: Performed By: #### 2 54133 #### [facility],[address] [place] [address] 49819 Lactate [Moles/Vol] 2.3 mmol/L High 0.4 - 2.0 [facility] Comment on above: Result Comment: LACT ATE 3 HR NOTIFIED TO: [id number] 03/30/23.JLN. . . LACTATE 3 HR NOTIFIED BY: _NICA 03/30/23.JLN. . . Performed By: #### 2 64682 #### [facility],[address] [place] [address] TROPONIN I, HIGH SENSITIVITY on 03-30-2023 HS TROPONIN 4.0 pg/mL Normal 0.0 - 51.4 [facility] Comment on above: Performed By: #### 2 77740 #### [facility],[address] [place] [address] HS TROPONIN <4.0 Normal 0.0 - 51.4 [facility] Comment on above: Performed By: #### 2 96842 #### [facility],[address] [place] [address] Absolute lymphocyte countOrd ered By: Dr. Rojas on 12-30-2022 Lymphocytes Auto (Unsp spec) [#/Vol] 1.40 10*3/uL 0.83-4.51 [facility] Basophil percentageOrdered B y: Dr. Rojas on 12-30-2022 Basophils/100 WBC (Bld) 0.8 % 0-1 [facility] Chloride [Moles/Vol] 106 mmol/L 98-107 [facility] Eosinophils/100 WBC (Bld) 1.9 % 0-5 [facility] Glucose [Mass/Vol] 88 mg/dL 74-106 [facility] Neutrophils (Bld) [#/Vol] 4.1 10*3/uL 2.0-7.7 [facility] Neutrophils/100 WBC (Bld) 64.3 % 47-70 [facility] Potassium [Moles/Vol] 4.3 mmol/L 3.5-5.1 [facility] Sodium [Moles/Vol] 140 mmol/L 136-145 [facility] WBC (Bld) [#/Vol] 6.3 10*3/uL 4.4-11.0 [facility] Blood erythrocytes count (nu mber/volume)Ordered By: Dr. Rojas on 12-30-2022 RBC (Bld) [#/Vol] 4.87 10*6/uL 4.2-5.4 [place] Blood hemoglobin measurement (mass/volume)Ordered By: Dr. Rojas on 12-30-2022 Hemoglobin (Bld) [Mass/Vol] 14.9 g/dL 12.0-15.0 [facility] Blood lymphocytes/100 leukoc ytesOrdered By: Dr. Rojas on 12-30-2022 Lymphocytes/100 WBC (Bld) 22.2 % 19-41 [facility] Blood monocytes/100 leukocyt esOrdered By: Dr. Rojas on 12-30-2022 Monocytes/100 WBC (Bld) 10.5 % 0-10 [facility] Blood platelet mean volumeOr dered By: Dr. Rojas on 12-30-2022 Platelet mean volume (Bld) [Entitic vol] 9.2 fL 6.2-12.0 [facility] Determination of erythrocyte mean corpuscular volume (MCV)Ordered By: Dr. Rojas on 12-30-2022 MCV (RBC) [Entitic vol] 92.8 fL 81-99 [facility] Hematocrit Auto (Bld) [Volum e fraction]Ordered By: Dr. Rojas on 12-30-2022 Hematocrit (Bld) [Volume fraction] 45.2 % 37-47 [facility] INR in Blood by Coagulation assayOrdered By: Dr. Rojas on 12-30-2022 INR Coag (Bld) [Relative time] 1.0 {INR} [facility] Laboratory - Chemistry and C hemistry - challengeOrdered By: Dr. Rojas on 12-30-2022 CO2 [Moles/Vol] 30.0 mmol/L 21.0-32.0 [facility] Urea nitrogen/Creatinine [Mass ratio] 21.6 mg/mg 05-01 [facility] Laboratory - CoagulationOrde red By: Dr. Rojas on 12-30-2022 aPTT Coag (Bld) [Time] 27.0 s 24.1-36.2 [facility] PT Coag (PPP) [Time] 12.8 s 11.7-14.9 [facility] Laboratory - Hematology and Cell countsOrdered By: Dr. Rojas on 12-30-2022 Erythrocyte distribution width (RBC) [Entitic vol] 45.3 fL 35.1-43.9 [facility] Erythrocyte distribution width (RBC) [Ratio] 13.3 % 11.6-14.6 [facility] Immature granulocytes/100 WBC (Bld) 0.300 % 0.0-0.9 [facility] Comment on above: IG% - Immature Granu locytes (promyelocytes, myelocytes and metamyelocytes) > 1% indicates that a LEFT SHIFT is Present. MCH (RBC) [Entitic mass] 30.6 pg 27.0-32.0 [facility] Nucleated RBC/100 WBC (Bld) [Ratio] 0 % 0-5 [facility] MCHC Auto (RBC) [Mass/Vol]Or dered By: Dr. Rojas on 12-30-2022 MCHC (RBC) [Mass/Vol] 33.0 g/dL 32-36 [facility] No Panel InformationOrdered By: Dr. Rojas on 12-30-2022 Estimated GFR (MDRD) Amer 130 mL/min >60 [facility] Comment on above: GFR Calc Estimated GFR (MDRD) Non-Af Amer 107 mL/min >60 [facility] Comment on above: Non- GFR Calc Platelets bldOrdered By: Dr. Rojas on 12-30-2022 Platelets (Bld) [#/Vol] 278 10*3/uL 150-450 [facility] Serum or plasma calcium rosibel urement (mass/volume)Ordered By: Dr. Rojas on 12-30-2022 Calcium [Mass/Vol] 8.7 mg/dL 8.5-10.1 [facility] Serum or plasma creatinine m easurement (mass/volume)Ordered By: Dr. Rojas on 12-30-2022 Creatinine [Mass/Vol] 0.60 mg/dL 0.55-1.02 [facility] Comment on above: The validity of the calculated GFR & GFRAA in patients over 70 years has not been determined. Clinical correlation is essential. Serum or plasma urea nitroge n measurement (mass/volume)Ordered By: Dr. Rojas on 12-30-2022 Urea nitrogen [Mass/Vol] 13 mg/dL 7-18 [facility] Thin prep Papanicolaou smear with manual screeningOrdered By: Dr. Rojas on 12-30-2022 Thin prep Papanicolaou smear with manual screening 4 5-15 [facility] Base excessOrdered By: Dr. Mikey bowser on 09-30-2022 Base excess Calc (BldV) [Moles/Vol] 4 mmol/L -2-2 [facility] Basophil percentageOrdered B y: Dr. Ruiz on 09-30-2022 Basophil percentage 28.1 mmol/L 22-26 [facility] Basophils/100 WBC (Bld) 95 % 95-99 [facility] CO2 (BldA) [Partial pressure ]Ordered By: Dr. Ruiz on 09-30-2022 CO2 (Bld) [Partial pressure] 41.9 mm[Hg] 35-45 [facility] No Panel InformationOrdered By: Dr. Ruiz on 09-30-2022 Blood Gas Sample Site R Brach [facility] Blood Gas Specimen Type ART [facility] Blood Gas Total CO2 29 mmol/L [place] Oxygen Delivery Device Room Air [facility] Oxygen (BldA) [Partial press ure]Ordered By: Dr. Ruiz on 09-30-2022 Oxygen (Bld) [Partial pressure] 71 mmHG 75-100 [facility] pH measurementOrdered By: Dr Anand Ruiz on 09-30-2022 pH (Unsp spec) 7.43 [pH] 7.35-7.45 [facility] Final Surgical Pathology Rep [facility] 01-10-2022 Final Surgical Pathology Report . Pathology Reports Accession: Collected Date/Time: Received Date/Time: Pathologist: [id number] 01/09/2022 09:53 EDT 01/09/2022 14:14 EDT CANDIE SOTO MD Final Surgical Pathology Report DIAGNOSIS: SIGMOID COLON, POLYPECTOMY - TUBULAR ADENOMA. CLINICAL INFORMATION: SCREENING SPECIMEN: A SIGMOID POLYPS BIOPSIES - R/O ADENOMA GROSS DESCRIPTION: A. Received in formalin, labeled with the patients name, Case #[id number], and sigmoid polyps multiple flores-pink soft tissue fragments ranging from 0.1 to 0.3 cm. TS -1 Dictated by LINDSAY BURNHAM MICROSCOPIC DESCRIPTION: Slides reviewed. Electronically Signed by Pathology Report verified by [facility] Electronically signed by CANDIE SOTO Sign out Date: 01/10/2022 14:55 Performing Lab: [facility], [address] [place] [address] ([place]) HepB SurfaceAb,Quanton 11-29 HepB SurfaceAb,Quant 86.98 mIU/mL High <8.00 [facility] Reference Lab Comment on above: Performed By: #### M EASLG, AHBSQ, MUMPSG, RUBIGG #### [facility] Routine Lab [address] [place] [id number] Measles IgG Antibodyon 11-29 Measles IgG Ab, Qual Abnormal Negative [facility] Lab Comment on above: Result Comment: Posi tive Presence of detectable measles virus IgG antibodies. A positive result generally indicates exposure to measles virus or previous vaccination. Performed By: #### M EASLG, AHBSQ, MUMPSG, RUBIGG #### [facility] Routine Lab [address] [place] [address] Measles IgG Antibody Normal [facility] Lab Comment on above: Result Comment: >300 .0 AU/mL Negative Specimens <13.5 Equivocal Specimens >=13.5 to <16.5 Positive Specimens >=16.5 The magnitude of the measured result, above the cutoff, is not indicative of the amount of antibody present. Value Negative Specimens <13.5 Equivocal Specimens >=13.5 to <16.5 Positive Specimens >=16.5 The magnitude of the measured result, above the cutoff, is not indicative of the amount of antibody present. interpreted as Negative Specimens <13.5 Equivocal Specimens >=13.5 to <16.5 Positive Specimens >=16.5 The magnitude of the measured result, above the cutoff, is not indicative of the amount of antibody present. follows: Negative Specimens <13.5 Equivocal Specimens >=13.5 to <16.5 Positive Specimens >=16.5 The magnitude of the measured result, above the cutoff, is not indicative of the amount of antibody present. Performed By: #### M EASLG, AHBSQ, MUMPSG, RUBIGG #### [facility] Routine Lab [address] [place] [id number] Mumps IgG Abon 11-29-2020 Mumps IgG Ab >300.0 Normal [facility] Reference Lab Comment on above: Performed By: #### M EASLG, AHBSQ, MUMPSG, RUBIGG #### [facility] Routine Lab [address] [place], [place] [address] Mumps IgG, Qual Positive Abnormal Negative [facility] Reference Lab Comment on above: Performed By: #### M EASLG, AHBSQ, MUMPSG, RUBIGG #### [facility] Routine Lab [address] [place], [place] [address] Rubella IgG Antibodyon 11-29 Rubella IgG Ab 28.10 Index Value Normal [facility] Reference Lab Comment on above: Performed By: #### M EASLG, AHBSQ, MUMPSG, RUBIGG #### [facility] Routine Lab [address] [place], [place] [address] Rubella IgG Ab, Qual Positive Abnormal Negative [facility] Reference Lab Comment on above: Performed By: #### M EASLG, AHBSQ, MUMPSG, RUBIGG #### [facility] Routine Lab [address] [place], [place] [address] Office Visit: COPDon 017 Protein mass conc Done Invalid Interpretation Code [facility] Work Phone: Protein mass conc yes Invalid Interpretation Code [facility] Work Phone: Tobacco smoking status [facility] Current every day smoker Invalid Interpretation Code [facility] Work Phone: Tobacco smoking status [facility] Never Invalid Interpretation Code [facility] Work Phone: CNOVon 04-17-2017 CNOV Office Visit ([facility]) ----VIOLETTA LINDER ([id number]) 1960 [facility] Time Provider Xkuixychjy43/6/17 11:45 AM REHANA WOLFE (PA) [facility] During your visit today, we recorded the following information about you: Temperature Pulse Respiration Blood pressure 98.2 degrees 80/minute 16/minute 130/72 Weight 75.8 kgRehana Wolfe PA-C 04/17/2017 12:55 PM SignedHPI Comments: Violetta Linder is a 57 year old female with cough, post nasaldrip and sinus pressure for the last 10 days. Cough is productive of greensputum. She denies fever. She has COPD and uses inhalers at home.Patient is a 57 year old female presenting with cough. The history is providedby the patient.CoughThis is a new problem. The cough is productive of sputum. There has been nofever. Associated symptoms include ear congestion and rhinorrhea. Pertinentnegatives include no chest pain, no chills, no sweats, no ear pain, noheadaches, no sore throat, no shortness of breath, no wheezing and no eyeredness. She has tried nothing for the symptoms. She is a smoker. Her pastmedical history is significant for COPD.PAST MEDICAL HISTORYDiagnosis Date- Genital herpes, unspecified Genital herpes- Irritable bowel syndrome- Mitral valve disorders(424.0)- Unspecified hemorrhoids without mention of complicationPAST SURGICAL HISTORYProcedure Laterality Date- PAST SURGICAL HISTORY OF 1989 C1and C2 bone fusion with keara. hip graftALLERGIES Dicloxacillin; EphedrineMEDICATIONSalbutero l HFA (PROAIR HFA) 90 mcg/actuation inhaler Inhale 2 Puffs asinstructed every 4 hours as needed for Wheezing/Shortness of Breath.albuterol (PROVENTIL) 2.5 mg /3 mL (0.083 %) nebulizer solution Use 3 mL vianebulizer every 4 hours as needed for Wheezing/Shortness of Breath. Use over5-15minutes.budesonide-f ormoterol (SYMBICORT) 160-4.5 mcg/actuation inhaler Inhale 2 Puffsas instructed twice daily.DULOXETINE HCL (CYMBALTA ORAL) Take by mouth.OMEPRAZOLE ORAL Take by mouth.IBUPROFEN 600 MG TAB Take one(1) tablet every six(6) hours as needed for pain.cetirizine (ZYRTEC) 10 mg ORAL Tab one per day as needed for allergiesMULTIVITAMIN TAB Take one(1) tablet daily.VITAMIN C 1,000 MG TAB Take one(1) tablet daily.mometasone (NASONEX) 50 mcg/actuation nasal spray Use 2 Sprays in the nose oncedaily. Rinse mouth after use.benzonatate (TESSALON PERLES) 100 mg capsule Take 1 capsule by mouth threetimes daily as needed for Cough.amoxicillin (AMOXIL) 875 mg tablet Take 1 tablet by mouth twice daily for 10days.acyclovir 5 % TOPICAL ointment apply as directed for outbreaksFAMILY HISTORYProblem Relation Age of Onset- Heart Father aneurysm/kidney failure/stroke /- Other dementia [Other] [OTHER] Mother- Hypertension Father- Hypertension Sister- Hypertension BrotherSocial HistorySubstance Use Topics- Smoking status: Former Smoker Packs/day: 0.50 Years: 20.00 Types: Cigarettes- Smokeless tobacco: Not on file- Alcohol use Yes Comment: rarelyReview of SystemsConstitutional: Negative for chills and diaphoresis.HENT: Positive for congestion and rhinorrhea. Negative for ear pain, sorethroat and tinnitus.Eyes: Negative. Negative for discharge and redness.Respiratory: Positive for cough and sputum production. Negative for hemoptysis,shortness of breath and wheezing.Cardiovascular: Negative for chest pain.Gastrointestinal: Negative. Negative for nausea and vomiting.Skin: Negative. Negative for rash.Neurological: Negative. Negative for dizziness, weakness and headaches.All other systems reviewed and are negative.BP 130/72 Pulse 80 Temp 36.8 ?C (98.2 ?F) (Tympanic) Resp 16 Wt 75.8 kg(167 lb) LMP 12/08/2005 BMI 28.67 kg/m2Pule ox 96 percentPhysical ExamConstitutional: She is well-developed, well-nourished, and in no distress.Vital signs are normal.HENT:Head: Normocephalic and atraumatic.Right Ear: Hearing, tympanic membrane, external ear and ear canal normal.Left Ear: Hearing, tympanic membrane, external ear and ear canal normal.Nose: No rhinorrhea, nose lacerations or sinus tenderness. Right sinus exhibitsmaxillary sinus tenderness. Right sinus exhibits no frontal sinus tenderness.Left sinus exhibits maxillary sinus tenderness. Left sinus exhibits no frontalsinus tenderness.Mouth/Throat: Uvula is midline, oropharynx is clear and moist and mucousmembranes are normal. No oropharyngeal exudate.Eyes: Conjunctivae are normal. Pupils are equal, round, and reactive to light.Neck: Normal range of motion. Neck supple.Cardiovascular: Normal rate, regular rhythm and normal heart sounds. Examreveals no gallop and no friction rub.No murmur heard.Pulmonary/Chest: Effort normal and breath sounds normal. No accessory muscleusage. No respiratory distress. She has no decreased breath sounds. She has nowheezes. She has no rhonchi. She has no rales. She exhibits no tenderness.Lymphadenopathy: She has no cervical adenopathy.Nursing note and vitals reviewed.ASSESSMENT/PLAN:1. Acute maxillary sinusitis, recurrence not specified - ICD9: 461.0, ICD10:J01.00- Will begin treatment with Amoxicillin for 10 daysnasonex nasal sprayTessalon perles for cough,- The patient should also be given behind the counter Pseudoephedrine for thefirst 5-7 days of treatment.- Supportive care with plenty of fluids, rest, and analgesia prn.- Follow up in 3-5 days if symptoms persist or worsen.BRIAN Sotelo-Juan R Wolfe PA-C 04/17/2017 11:56 AM SignedEXPRESS CARE PATIENT INFOACUTE SINUSITIS OVERVIEWRhinosinusitis, or more commonly sinusitis, is the medical term forinflammation (swelling) of the lining of the sinuses and nose. The sinuses arethe hollow areas within the facial bones that are connected to the nasalopenings. The sinuses are lined with mucous membranes, similar to the insideof the nose.There are two main types of sinusitis: acute and chronic. Acute sinusitis isinflammation that lasts for less than four weeks while chronic sinusitis lastsfor more than 12 weeks. Acute sinusitis is common, affecting approximately onemillion people per year in the [place].ACUTE SINUSITIS CAUSESThe most common cause of acute sinusitis is a viral infection associated withthe common cold. Bacterial sinusitis occurs much less commonly, in only 0.5 to2 percent of cases, usually as a complication of viral sinusitis.Because antibiotics are effective only against bacterial, and not viral,infections, most people do not need antibiotics for acute sinusitis.ACUTE SINUSITIS SYMPTOMSSymptoms of acute sinusitis include:? Nasal congestion or blockage? Thick, yellow to green discharge from the nose? Pain in the teeth? Pain or pressure in the face that is worse when bending forwardsOther acute sinusitis symptoms can include fever (temperature greater bqui337.4?F or 38?C), fatigue, cough, difficulty or inability to smell, earpressure or fullness, headache, and bad breath.In most cases, these symptoms develop over the course of one day and begin toimprove within seven to 10 days.DO I NEED TO BE EXAMINED?It is difficult to know if you have a viral or bacterial sinus infectioninitially. However, most people with a viral infection improve withouttreatment within seven to 10 days after symptoms begin. Bacterial sinusitisalso sometimes improves without treatment, although it can also worsen andrequire treatment.If one or more of the following bothersome symptoms last more than seven days,an examination by a healthcare provider is recommended:? Thick, yellow to green discharge from the nose? Face or tooth pain, especially if it is only on one side? Tenderness over the maxillary sinuses (located on the left and right side ofthe nose, inside the cheekbones)? Symptoms that initially improve and then worsenWhen to seek immediate help ? If you have one or more of the followingsymptoms, you should seek medical attention immediately (even if symptoms havebeen present for less than seven days):? High fever (ANDgt;102.5? F or 39.2? C)? Sudden, severe pain in the face or head? Double vision or difficulty seeing? Confusion or difficulty thinking clearly? Swelling or redness around one or both eyes? Stiff neck, shortness of breathACUTE SINUSITIS TREATMENTInitial treatment of a sinus infection aims to relieve symptoms since almosteveryone will improve within the first seven to 10 days. Experts recommendavoiding antibiotics during this time unless there is clear evidence of asevere bacterial infection.Initial treatmentPain relief ? Non-prescription pain medications, such as acetaminophen (eg,Tylenol?) or ibuprofen (eg, Motrin?, Advil?) are recommended for pain.Nasal irrigation and saline sprays ? Rinsing the nose with a salt-water(saline) solution is called nasal irrigation or nasal lavage. Saline is alsoavailable in a standard nasal spray, although this is not as effective as usinglarger amounts of water in an irrigation.Nasal irrigation is particularly useful for treating drainage down the back ofthe throat, sneezing, nasal dryness, and congestion. The treatment helps byrinsing out allergens and irritants from the nose. Saline rinses also clean thenasal lining and can be used before applying sprays containing medications, toget a better effect from the medication.Nasal lavage with warmed saline can be performed as needed, once per day, ortwice daily for increased symptoms. Nasal lavage carries few risks whenperformed correctly. Saline nasal sprays and irrigation kits can be [id number]. Saline mixes can also be purchased or patients can make theirown solution.A variety of devices, including bulb syringes, Neti pots, and bottle sprayers,may be used to perform nasal lavage; instructions for nasal lavage are providedin the table. At least 200 mL (about 3/4 cup) of fluid is recommended for eachnostril.Nasal decongestants ? Nasal decongestant sprays, including oxymetazoline(Afrin?) and phenylephrine (Rakesh-synephrine?) can be used to temporarily treatcongestion. However, these sprays should not be used for more than two to threedays due to the risk of rebound congestion (when the nose is congestedconstantly unless the medication is used repeatedly).Other treatments ? Other treatments for congestion, such as oral antihistamines(such as diphenhydramine/Benadryl?) or zinc supplements are not proven toimprove symptoms of sinusitis and can have unwanted side effects. Medicationsto thin secretions (such as guaifenesin) may help to clear mucus.Secondline treatment ? If symptoms have not improved in seven to ten days, youshould arrange for medical evaluation. You may need further treatment.Nasal glucocorticoids ? Nasal glucocorticoids (steroids delivered by a nasalspray) can help to reduce swelling inside the nose, usually within two to threedays. These drugs have few side effects and dramatically relieve symptoms inmost people.There are a number of nasal glucocorticoids available by prescription. Thesedrugs are all effective, but differ in how frequently they must be used and howmuch they cost.You may need to use a nasal decongestant for a few days before starting a nasalglucocorticoid to reduce nasal swelling; this will allow the nasalglucocorticoid to reach more areas of the nasal passagesDo I need an antibiotic? ? If bothersome symptoms of sinusitis persist for 10or more days, it is possible that you have bacterial sinusitis. The need forantibiotics depends upon the severity of your symptoms.Mild symptoms ? There are two possible treatment options if you have mildsinusitis symptoms: treat with antibiotics or continue to watch and wait forone week.Watching and waiting is a reasonable option because up to 75 percent of peoplewith bacterial sinusitis improve within one month without antibiotics. Duringthe watch and wait period, treatments to improve symptoms are recommended.If symptoms worsen or do not improve after watching and waiting, treatment withan antibiotic is usually recommended. Treatments to relieve symptoms arerecommended while using antibiotics.Moderate or severe symptoms ? Most healthcare providers will prescribe anantibiotic for moderate to severe symptoms (temperature ANDgt;38.3? C or 101? Fand/or severe pain that interferes with usual activities).Treatments to relieve symptoms are also recommended during antibiotictreatment.One of the least expensive and most effective antibiotics for sinusitis isamoxicillin. An alternate antibiotic will be prescribed if you are allergic topenicillin. Regardless of which antibiotic is prescribed, it is important tofollow the dosing instructions carefully and to finish the entire course oftreatment. Taking the medication less often than prescribed or stopping themedication early can lead to complications, such as a recurrent infection.What if I do not improve with treatment? ? If you do not improve or worsenafter a course of antibiotics, you should be re-examined.In some cases, symptoms of sinusitis improve but then recur. This is usuallybecause the infection was not completely eliminated by the antibiotic. Analternate antibiotic, extended antibiotic treatment, and/or further testing maybe recommended, depending upon your individual situation.Referring Provider: SELF [[id number]]Allergies As of Date: 04/17/2017 Noted Allergy ReactionDICLOXACILLIN 01/14/2006 8 - GI UpsetEPHEDRINE 08/19/2005 7 - SwellingDate Reviewed: 04/17/2017Reviewed by: Rehana Garcia) Yaneth - Fully AssessedReason for Visit: Cough [28] Cmt: x5 daysPrimary Visit Diagnosis:Acute maxillary sinusitis, recurrence not specified [J01.00]Order(s):mometasone (NASONEX) 50 mcg/actuation nasal sprayUse 2 Sprays in the nose once daily. Rinse mouth after use.Disp: 1 BottleRfl: 11 benzonatate (TESSALON PERLES) 100 mg capsuleTake 1 capsule by mouth three times daily as needed for Cough.Disp: 21 capsuleRfl: 0 amoxicillin (AMOXIL) 875 mg tabletTake 1 tablet by mouth twice daily for 10 days.Disp: 20 tabletRfl: 0Prescriptions as of 04/17/2017 Sig: ALBUTEROL SULFATE HFA 90 MCG/* Inhale 2 Puffs as instructed * ALBUTEROL SULFATE 2.5 MG/3 ML* Use 3 mL via nebulizer every * BUDESONIDE-FORMOTEROL HFA 160* Inhale 2 Puffs as instructed * CYMBALTA ORAL Take by mouth. OMEPRAZOLE ORAL Take by mouth. IBUPROFEN 600 MG TABLET Take one(1) tablet every six(* ZYRTEC 10 MG TABLET one per day as needed for all* MULTIVITAMIN TABLET Take one(1) tablet daily. VITAMIN C 1,000 MG TABLET Take one(1) tablet daily. MOMETASONE 50 MCG/ACTUATION N* Use 2 Sprays in the nose once* BENZONATATE 100 MG CAPSULE Take 1 capsule by mouth three* AMOXICILLIN 875 MG TABLET Take 1 tablet by mouth twice * ACYCLOVIR 5 % TOPICAL OINTMENT apply as directed for outbrea*Medication notes this encounter ACYCLOVIR 5 % TOPICAL OINTMENT >> Natasha Maza Ma 04/17/2017 11:41 AM >> NATASHA MAZA MA [facility] Apr 17, 2017 11:41 AM Not usingProblem List As Of Date 04/17/2017 Noted Resolved IRRITABLE COLON [K58.9] INVALID FOR* DEPRESSIVE DISORDER NEC [F32.9] INVALID FOR* URGENCY OF URINATION [R39.15] INVALID FOR* GENITAL HERPES NOS [A60.00] INVALID FOR* OVARIAN CYST NEC/NOS [N83.209] INVALID FOR* HAIR DISEASES NEC [L73.8] INVALID FOR* Other instructions from your clinician: [facility] PATIENT INFO ACUTE SINUSITIS OVERVIEW Rhinosinusitis, or more commonly sinusitis, is the medical term for inflammation (swelling) of the lining of the sinuses and nose. The sinuses are the hollow areas within the facial bones that are connected to the nasal openings. The sinuses are lined with mucous membranes, similar to the inside of the nose. There are two main types of sinusitis: acute and chronic. Acute sinusitis is inflammation that lasts for less than four weeks while chronic sinusitis lasts for more than 12 weeks. Acute sinusitis is common, affecting approximately one million people per year in the [place]. ACUTE SINUSITIS CAUSES The most common cause of acute sinusitis is a viral infection associated with the common cold. Bacterial sinusitis occurs much less commonly, in only 0.5 to 2 percent of cases, usually as a complication of viral sinusitis. Because antibiotics are effective only against bacterial, and not viral, infections, most people do not need antibiotics for acute sinusitis. ACUTE SINUSITIS SYMPTOMS Symptoms of acute sinusitis include: ? Nasal congestion or blockage ? Thick, yellow to green discharge from the nose ? Pain in the teeth ? Pain or pressure in the face that is worse when bending forwards Other acute sinusitis symptoms can include fever (temperature greater than 100.4?F or 38?C), fatigue, cough, difficulty or inability to smell, ear pressure or fullness, headache, and bad breath. In most cases, these symptoms develop over the course of one day and begin to improve within seven to 10 days. DO I NEED TO BE EXAMINED? It is difficult to know if you have a viral or bacterial sinus infection initially. However, most people with a viral infection improve without treatment within seven to 10 days after symptoms begin. Bacterial sinusitis also sometimes improves without treatment, although it can also worsen and require treatment. If one or more of the following bothersome symptoms last more than seven days, an examination by a healthcare provider is recommended: ? Thick, yellow to green discharge from the nose ? Face or tooth pain, especially if it is only on one side ? Tenderness over the maxillary sinuses (located on the left and right side of the nose, inside the cheekbones) ? Symptoms that initially improve and then worsen When to seek immediate help ? If you have one or more of the following symptoms, you should seek medical attention immediately (even if symptoms have been present for less than seven days): ? High fever (>102.5? F or 39.2? C) ? Sudden, severe pain in the face or head ? Double vision or difficulty seeing ? Confusion or difficulty thinking clearly ? Swelling or redness around one or both eyes ? Stiff neck, shortness of breath ACUTE SINUSITIS TREATMENT Initial treatment of a sinus infection aims to relieve symptoms since almost everyone will improve within the first seven to 10 days. Experts recommend avoiding antibiotics during this time unless there is clear evidence of a severe bacterial infection. Initial treatment Pain relief ? Non-prescription pain medications, such as acetaminophen (eg, Tylenol?) or ibuprofen (eg, Motrin?, Advil?) are recommended for pain. Nasal irrigation and saline sprays ? Rinsing the nose with a salt-water (saline) solution is called nasal irrigation or nasal lavage. Saline is also available in a standard nasal spray, although this is not as effective as using larger amounts of water in an irrigation. Nasal irrigation is particularly useful for treating drainage down the back of the throat, sneezing, nasal dryness, and congestion. The treatment helps by rinsing out allergens and irritants from the nose. Saline rinses also clean the nasal lining and can be used before applying sprays containing medications, to get a better effect from the medication. Nasal lavage with warmed saline can be performed as needed, once per day, or twice daily for increased symptoms. Nasal lavage carries few risks when performed correctly. Saline nasal sprays and irrigation kits can be purchased [id number]. Saline mixes can also be purchased or patients can make their own solution. A variety of devices, including bulb syringes, Neti pots, and bottle sprayers, may be used to perform nasal lavage; instructions for nasal lavage are provided in the table. At least 200 mL (about 3/4 cup) of fluid is recommended for each nostril. Nasal decongestants ? Nasal decongestant sprays, including oxymetazoline (Afrin?) and phenylephrine (Rakesh-synephrine?) can be used to temporarily treat congestion. However, these sprays should not be used for more than two to three days due to the risk of rebound congestion (when the nose is congested constantly unless the medication is used repeatedly). Other treatments ? Other treatments for congestion, such as oral antihistamines (such as diphenhydramine/Benadryl?) or zinc supplements are not proven to improve symptoms of sinusitis and can have unwanted side effects. Medications to thin secretions (such as guaifenesin) may help to clear mucus. Secondline treatment ? If symptoms have not improved in seven to ten days, you should arrange for medical evaluation. You may need further treatment. Nasal glucocorticoids ? Nasal glucocorticoids (steroids delivered by a nasal spray) can help to reduce swelling inside the nose, usually within two to three days. These drugs have few side effects and dramatically relieve symptoms in most people. There are a number of nasal glucocorticoids available by prescription. These drugs are all effective, but differ in how frequently they must be used and how much they cost. You may need to use a nasal decongestant for a few days before starting a nasal glucocorticoid to reduce nasal swelling; this will allow the nasal glucocorticoid to reach more areas of the nasal passages Do I need an antibiotic? ? If bothersome symptoms of sinusitis persist for 10 or more days, it is possible that you have bacterial sinusitis. The need for antibiotics depends upon the severity of your symptoms. Mild symptoms ? There are two possible treatment options if you have mild sinusitis symptoms: treat with antibiotics or continue to watch and wait for one week. Watching and waiting is a reasonable option because up to 75 percent of people with bacterial sinusitis improve within one month without antibiotics. During the watch and wait period, treatments to improve symptoms are recommended. If symptoms worsen or do not improve after watching and waiting, treatment with an antibiotic is usually recommended. Treatments to relieve symptoms are recommended while using antibiotics. Moderate or severe symptoms ? Most healthcare providers will prescribe an antibiotic for moderate to severe symptoms (temperature >38.3? C or 101? F and/or severe pain that interferes with usual activities). Treatments to relieve symptoms are also recommended during antibiotic treatment. One of the least expensive and most effective antibiotics for sinusitis is amoxicillin. An alternate antibiotic will be prescribed if you are allergic to penicillin. Regardless of which antibiotic is prescribed, it is important to follow the dosing instructions carefully and to finish the entire course of treatment. Taking the medication less often than prescribed or stopping the medication early can lead to complications, such as a recurrent infection. What if I do not improve with treatment? ? If you do not improve or worsen after a course of antibiotics, you should be re-examined. In some cases, symptoms of sinusitis improve but then recur. This is usually because the infection was not completely eliminated by the antibiotic. An alternate antibiotic, extended antibiotic treatment, and/or further testing may be recommended, depending upon your individual situation.Prescriptions ordered this encounter Disp Refills Start End MOMETASONE 50 MCG/ACTUATION NASAL SP* 1 Josh* 11 04/17/2017 Route: NASAL Sig: Use 2 Sprays in the nose once daily. Rinse mouth after use. BENZONATATE 100 MG CAPSULE 21 c* 0 04/17/2017 Route: ORAL Sig: Take 1 capsule by mouth three times daily as needed for Cough. AMOXICILLIN 875 MG TABLET 20 t* 0 04/17/2017 04/27/2017 Route: ORAL Sig: Take 1 tablet by mouth twice daily for 10 days.Medications Discontinued During This Encounter benzonatate (TESSALON PERLE) 100 mg * 20 c* 0 07/15/2016 04/17/2017 Route: ORAL Sig: Take 1 capsule by mouth three times daily as needed. Disc: Course of therapy completedEncounter Number: [id number] Status:Closed by REHANA WOLFE on 04/17/17 [facility] PROGRESSon 04-17-2017 PROGRESS HNO ID: [id number] thor: Rehana Silverman (Brian) JaybaService: (none)Author Type: Physician AssistantType: Progress NotesFiled: 04/17/2017 12:55 PMNote Text:HPI Comments: Violetta Linder is a 57 year old female with cough, postnasal drip and sinus pressure for the last 10 days. Cough is productiveof green sputum. She denies fever. She has COPD and uses inhalers athome.Patient is a 57 year old female presenting with cough. The history isprovided by the patient.CoughThis is a new problem. The cough is productive of sputum. There has beenno fever. Associated symptoms include ear congestion and rhinorrhea.Pertinent negatives include no chest pain, no chills, no sweats, no earpain, no headaches, no sore throat, no shortness of breath, no wheezingand no eye redness. She has tried nothing for the symptoms. She is asmoker. Her past medical history is significant for COPD.PAST MEDICAL HISTORYDiagnosis Date- Genital herpes, unspecified Genital herpes- Irritable bowel syndrome- Mitral valve disorders(424.0)- Unspecified hemorrhoids without mention of complicationPAST SURGICAL HISTORYProcedure Laterality Date- PAST SURGICAL HISTORY OF 1989 C1and C2 bone fusion with keara. hip graftALLERGIES Dicloxacillin; EphedrineMEDICATIONSalbutero l HFA (PROAIR HFA) 90 mcg/actuation inhaler Inhale 2 Puffs asinstructed every 4 hours as needed for Wheezing/Shortness of Breath.albuterol (PROVENTIL) 2.5 mg /3 mL (0.083 %) nebulizer solution Use 3 mLvia nebulizer every 4 hours as needed for Wheezing/Shortness of Breath.Use over 5-15minutes.budesonide-formo terol (SYMBICORT) 160-4.5 mcg/actuation inhaler Inhale 2Puffs as instructed twice daily.DULOXETINE HCL (CYMBALTA ORAL) Take by mouth.OMEPRAZOLE ORAL Take by mouth.IBUPROFEN 600 MG TAB Take one(1) tablet every six(6) hours as needed forpain.cetirizine (ZYRTEC) 10 mg ORAL Tab one per day as needed for allergiesMULTIVITAMIN TAB Take one(1) tablet daily.VITAMIN C 1,000 MG TAB Take one(1) tablet daily.mometasone (NASONEX) 50 mcg/actuation nasal spray Use 2 Sprays in the noseonce daily. Rinse mouth after use.benzonatate (TESSALON PERLES) 100 mg capsule Take 1 capsule by mouth threetimes daily as needed for Cough.amoxicillin (AMOXIL) 875 mg tablet Take 1 tablet by mouth twice daily for10 days.acyclovir 5 % TOPICAL ointment apply as directed for outbreaksFAMILY HISTORYProblem Relation Age of Onset- Heart Father aneurysm/kidney failure/stroke /- Other dementia [Other] [OTHER] Mother- Hypertension Father- Hypertension Sister- Hypertension BrotherSocial HistorySubstance Use Topics- Smoking status: Former Smoker Packs/day: 0.50 Years: 20.00 Types: Cigarettes- Smokeless tobacco: Not on file- Alcohol use Yes Comment: rarelyReview of SystemsConstitutional: Negative for chills and diaphoresis.HENT: Positive for congestion and rhinorrhea. Negative for ear pain, sorethroat and tinnitus.Eyes: Negative. Negative for discharge and redness.Respiratory: Positive for cough and sputum production. Negative forhemoptysis, shortness of breath and wheezing.Cardiovascular: Negative for chest pain.Gastrointestinal: Negative. Negative for nausea and vomiting.Skin: Negative. Negative for rash.Neurological: Negative. Negative for dizziness, weakness and headaches.All other systems reviewed and are negative.BP 130/72 Pulse 80 Temp 36.8 ?C (98.2 ?F) (Tympanic) Resp 16 Wt75.8 kg (167 lb) LMP 12/08/2005 BMI 28.67 kg/m2Pule ox 96 percentPhysical ExamConstitutional: She is well-developed, well-nourished, and in no distress.Vital signs are normal.HENT:Head: Normocephalic and atraumatic.Right Ear: Hearing, tympanic membrane, external ear and ear canal normal.Left Ear: Hearing, tympanic membrane, external ear and ear canal normal.Nose: No rhinorrhea, nose lacerations or sinus tenderness. Right sinusexhibits maxillary sinus tenderness. Right sinus exhibits no frontal sinustenderness. Left sinus exhibits maxillary sinus tenderness. Left sinusexhibits no frontal sinus tenderness.Mouth/Throat: Uvula is midline, oropharynx is clear and moist and mucousmembranes are normal. No oropharyngeal exudate.Eyes: Conjunctivae are normal. Pupils are equal, round, and reactive tolight.Neck: Normal range of motion. Neck supple.Cardiovascular: Normal rate, regular rhythm and normal heart sounds. Examreveals no gallop and no friction rub.No murmur heard.Pulmonary/Chest: Effort normal and breath sounds normal. No accessorymuscle usage. No respiratory distress. She has no decreased breath sounds.She has no wheezes. She has no rhonchi. She has no rales. She exhibits notenderness.Lymphadenopathy : She has no cervical adenopathy.Nursing note and vitals reviewed.ASSESSMENT/PLAN:1. Acute maxillary sinusitis, recurrence not specified - ICD9: 461.0,ICD10: J01.00- Will begin treatment with Amoxicillin for 10 daysnasonex nasal sprayTessalon perles for cough,- The patient should also be given behind the counter Pseudoephedrine forthe first 5-7 days of treatment.- Supportive care with plenty of fluids, rest, and analgesia prn.- Follow up in 3-5 days if symptoms persist or worsen.Rehana Wolfe PA-C Normal [facility] Office Visit: COPDon 017 Fall risk assessment No Invalid Interpretation Code [facility] Work Phone: Microbiology: Strep A (Throa t Rapid TANI)on 07-13-2016 STREP A (RAPID . Invalid Interpretation Code [facility] Phone: Office Visit: [facility]: Coughon S. pyogenes DNA MUSTAPHA+probe Ql (Throat) Negative Invalid Interpretation Code [facility] Phone: EKG Report: [facility] ECG Obse rvationson 11-27-2015 EKG QRS axis 89 deg Invalid Interpretation Code [facility] Work Phone: Interpretation Sinus Rhythm - Nonsp ecific T-abnormality. Low voltage -possible pulmonary disease. ABNORMAL Invalid Interpretation Code [facility] Phone: P [place] 70 deg Invalid Interpretation Code [facility] Work Phone: [place] Interval 138 ms Invalid Interpretation Code [facility] Work Phone: QRS Duration 96 ms Invalid Interpretation Code [facility] Work Phone: QT Interval new path ms Invalid Interpretation Code [facility] Work Phone: T [place] 90 deg Invalid Interpretation Code [facility] Phone: Vital Signs Date Time Vital Sign Value Performing Clinician Facility 03-28-2025 08:48-0400 Body height 162.[address] Beata Schwarz MD Work Phone: [facility] 03-28-2025 08:48-0400 Body mass index (BMI) [Ratio] 25.4 kg/m2 Dr. Beata Schwarz MD Work Phone: [facility] 03-28-2025 08:48-0400 Body temperature 96.3 [degF] Dr. Beata Schwarz MD Work Phone: [facility] 03-28-2025 08:48-0400 Body weight 67.[address] Beata Schwarz MD Work Phone: [facility] 03-28-2025 08:48-0400 Diastolic blood pressure 76 mm[Hg] Dr. Beata Schwarz MD Work Phone: [facility] 03-28-2025 08:48-0400 Heart rate 76 /min Dr. Beata Schwarz MD Work Phone: [facility] 03-28-2025 08:48-0400 Respiratory rate 20 /min Dr. Beata Schwarz MD Work Phone: [facility] 03-28-2025 08:48-0400 SaO2% (BldA) [Mass fraction] 95 % Dr. Beata Schwarz MD Work Phone: [facility] 03-28-2025 08:48-0400 Systolic blood pressure 118 mm[Hg] Dr. Beata Schwarz MD Work Phone: [facility] 02-07-2025 07:23-0400 Body mass index (BMI) [Ratio] 25.7 kg/m2 Dr. Beata Schwarz MD Work Phone: [facility] 02-07-2025 07:23-0400 Body temperature 97.4 [degF] Dr. Beata Schwarz MD Work Phone: [facility] 02-07-2025 07:23-0400 Body weight 68.[address] Beata Schwarz MD Work Phone: [facility] 02-07-2025 07:23-0400 Diastolic blood pressure 78 mm[Hg] Dr. Beata Schwarz MD Work Phone: [facility] 02-07-2025 07:23-0400 Heart rate 76 /min Dr. Beata Schwarz MD Work Phone: [facility] 02-07-2025 07:23-0400 Respiratory rate 20 /min Dr. Beata Schwarz MD Work Phone: [facility] 02-07-2025 07:23-0400 SaO2% (BldA) [Mass fraction] 94 % Dr. Beata Schwarz MD Work Phone: [facility] 02-07-2025 07:23-0400 Systolic blood pressure 119 mm[Hg] Dr. Beata Schwarz MD Work Phone: [facility] 12-27-2024 10:06-0400 Body height 162.[address] Beata Schwarz MD Work Phone: [facility] 12-27-2024 07:28-0400 Body mass index (BMI) [Ratio] 25.7 kg/m2 Dr. Beata Schwarz MD Work Phone: [phone] [place] [address] 12-27-2024 07:28-0400 Body temperature 96 [degF] Dr. Beata Schwarz MD Work Phone: [facility] 12-27-2024 07:28-0400 Body weight 68.[address] Beata Schwarz MD Work Phone: [facility] 12-27-2024 07:28-0400 Diastolic blood pressure 68 mm[Hg] Dr. Beata Schwarz MD Work Phone: [facility] 12-27-2024 07:28-0400 Heart rate 82 /min Dr. Beata Schwarz MD Work Phone: [facility] 12-27-2024 07:28-0400 Respiratory rate 20 /min Dr. Beata Schwarz MD Work Phone: [facility] 12-27-2024 07:28-0400 SaO2% (BldA) [Mass fraction] 95 % Dr. Beata Schwarz MD Work Phone: [facility] 12-27-2024 07:28-0400 Systolic blood pressure 103 mm[Hg] Dr. Beata Schwarz MD Work Phone: [facility] 11-14-2024 15:44-0400 Body height 162.[address] Beata Schwarz MD Work Phone: [facility] 08-20-2023 11:26-0500 Body temperature 98.1 [degF] Agatha Alejo MD Work Phone: [facility] 08-20-2023 11:26-0500 Diastolic blood pressure 58 mm[Hg] Agatha Alejo MD Work Phone: [facility] 08-20-2023 11:26-0500 Heart rate 85 /min Agatha Alejo MD Work Phone: [facility] 08-20-2023 11:26-0500 Respiratory rate 13 /min Agatha Alejo MD Work Phone: [facility] 08-20-2023 11:26-0500 SaO2% (BldA) [Mass fraction] 96 % Agatha Alejo MD Work Phone: [facility] 08-20-2023 11:26-0500 Systolic blood pressure 104 mm[Hg] Agatha Alejo MD Work Phone: [facility] 08-19-2023 09:50-0500 Body height 160 cm Agatha Alejo MD Work Phone: [facility] 08-19-2023 09:50-0500 Body mass index (BMI) [Ratio] 27.15 kg/m2 Agatha Alejo MD Work Phone: [facility] 08-19-2023 09:50-0500 Body weight 69.5 kg Agatha Alejo MD Work Phone: [facility] 01-02-2023 07:01-0400 Body height 162.[address] Edyta Nichole Work Phone: [facility] 01-02-2023 07:01-0400 Body weight 69.[address] Edyta Nichole Work Phone: [facility] 01-01-2023 08:13-0400 Body mass index (BMI) [Ratio] 26.4 kg/m2 Dr. Edyta Nichole Work Phone: [facility] 12-01-2022 15:16-0400 Body weight 69.[address] Edyta Nichole Work Phone: [facility] 12-01-2022 15:16-0400 Diastolic blood pressure 78 mm[Hg] Dr. Edyta Nichole Work Phone: [facility] 12-01-2022 15:16-0400 Heart rate 81 /min Dr. Edyta Nichole Work Phone: [facility] 12-01-2022 15:16-0400 Respiratory rate 26 /min Dr. Edyta Nichole Work Phone: [facility] 12-01-2022 15:16-0400 Systolic blood pressure 129 mm[Hg] Dr. Edyta Nichole Work Phone: [facility] 12-01-2022 08:34-0400 Body height 162.[address] Edyta Nichole Work Phone: [facility] 10-02-2022 07:42-0400 Body height 162.[address] Edyta Nichole Work Phone: [facility] 10-02-2022 07:42-0400 Body mass index (BMI) [Ratio] 26.4 kg/m2 Dr. Edyta Nichole Work Phone: [facility] 10-02-2022 07:42-0400 Body temperature 97.6 [degF] Dr. Edyta Nichole Work Phone: [facility] 10-02-2022 07:42-0400 Body weight 69.[address] Edyta Nichole Work Phone: [facility] 10-02-2022 07:42-0400 Diastolic blood pressure 68 mm[Hg] Dr. Edyta Nichole Work Phone: [facility] 10-02-2022 07:42-0400 Heart rate 70 /min Dr. Edyta Nichole Work Phone: [facility] 10-02-2022 07:42-0400 Respiratory rate 18 /min Dr. Edyta Nichole Work Phone: [facility] 10-02-2022 07:42-0400 SaO2% (BldA) [Mass fraction] 93 % Dr. Edyta Nichole Work Phone: [facility] 10-02-2022 07:42-0400 Systolic blood pressure 115 mm[Hg] Dr. Edyta Nichole Work Phone: [facility] 08-26-2022 11:11-0500 Body height 162.[address] Edyta Nichole Work Phone: [facility] 08-26-2022 11:04-0500 Body mass index (BMI) [Ratio] 25.7 kg/m2 Dr. Edyta Nichole Work Phone: [facility] 08-26-2022 11:04-0500 Body temperature 97.6 [degF] Dr. Edyta Nichole Work Phone: [facility] 08-26-2022 11:04-0500 Body weight 68.[address] Edyta Nichole Work Phone: [facility] 08-26-2022 11:04-0500 Diastolic blood pressure 76 mm[Hg] Dr. Edyta Nichole Work Phone: [facility] 08-26-2022 11:04-0500 Heart rate 77 /min Dr. Edyta Nichole Work Phone: [facility] 08-26-2022 11:04-0500 Respiratory rate 18 /min Dr. Edyta Nichole Work Phone: [facility] 08-26-2022 11:04-0500 SaO2% (BldA) [Mass fraction] 96 % Dr. Edyta Nichole Work Phone: [facility] 08-26-2022 11:04-0500 Systolic blood pressure 113 mm[Hg] Dr. Edyta Nichole Work Phone: [facility] 07-23-2022 12:47-0500 Body height 162.[address] Edyta Nichole Work Phone: [facility] 07-23-2022 12:47-0500 Body weight 70.[address] Edyta Nichole Work Phone: [facility] 07-23-2022 12:47-0500 Heart rate 75 /min Dr. Edyta Nichole Work Phone: [facility] 07-23-2022 12:47-0500 SaO2% (BldA) [Mass fraction] 96 % Dr. Edyta Nichole Work Phone: [facility] 07-22-2022 08:01-0500 Body mass index (BMI) [Ratio] 27 kg/m2 Dr. Edyta Nichole Work Phone: [facility] 07-22-2022 08:01-0500 Body temperature 97.7 [degF] Dr. Edyta Nichole Work Phone: [facility] 07-22-2022 08:01-0500 Body weight 70.[address] Edyta Nichole Work Phone: [facility] 07-22-2022 08:01-0500 Diastolic blood pressure 77 mm[Hg] Dr. Edyta Nichole Work Phone: [facility] 07-22-2022 08:01-0500 Heart rate 78 /min Dr. Edyta Nichole Work Phone: [facility] 07-22-2022 08:01-0500 Respiratory rate 20 /min Dr. Edyta Nichole Work Phone: [facility] 07-22-2022 08:01-0500 SaO2% (BldA) [Mass fraction] 95 % Dr. Edyta Nichole Work Phone: [facility] 07-22-2022 08:01-0500 Systolic blood pressure 118 mm[Hg] Dr. Edyta Nichole Work Phone: [facility] 03-05-2022 10:38-0400 Body height 161.[address] Edyta Nichole Work Phone: [facility] Work Phone: 03-05-2022 10:30-0400 Body mass index (BMI) [Ratio] 26.2 kg/m2 Dr. Edyta Nichole Work Phone: [facility] Work Phone: 03-05-2022 10:30-0400 Body temperature 96.9 [degF] Dr. Edyta Nichole Work Phone: [facility] Work Phone: 03-05-2022 10:30-0400 Body weight 68.[address] Edyta Nichole Work Phone: [facility] Work Phone: 03-05-2022 10:30-0400 Diastolic blood pressure 72 mm[Hg] Dr. Edyta Nichole Work Phone: [facility] Work Phone: 03-05-2022 10:30-0400 Heart rate 90 /min Dr. Edyta Nichole Work Phone: [facility] Work Phone: 03-05-2022 10:30-0400 Respiratory rate 16 /min Dr. Edyta Nichole Work Phone: [facility] Work Phone: 03-05-2022 10:30-0400 SaO2% (BldA) [Mass fraction] 93 % Dr. Edyta Nichole Work Phone: [facility] Work Phone: 03-05-2022 10:30-0400 Systolic blood pressure 109 mm[Hg] Dr. Edyta Nichole Work Phone: [facility] Work Phone: 04-22-2017 05:44-0400 BMI (Body Mass Index) 29.46 kg/m2 Carol Casillas CNP [facility] Work Phone: 04-22-2017 05:44-0400 Body Temperature 97.6 [degF] Carol Casillas CNP [facility] Work Phone: 04-22-2017 05:44-0400 BP Diastolic 86 mm[Hg] Carol Casillas PATTERN GRADER SUPERVISOR [facility] Work Phone: 04-22-2017 05:44-0400 BP Systolic 129 mm[Hg] Carol Casillas CNP [facility] Work Phone: 04-22-2017 05:44-0400 Height 161.29 cm Carol Casillas CNP [facility] Work Phone: 04-22-2017 05:44-0400 Pulse (Heart Rate) 76 /min Carol Casillas CNP [facility] Work Phone: 04-22-2017 05:44-0400 Respiratory Rate 18 /min Carol Casillas [employer] GRAD[employer] SUPERVISOR [facility] Work Phone: 04-22-2017 05:44-0400 Weight 76.66 kg Carol Casillas CNP [facility] Work Phone: 07-10-2016 11:57-0500 BSA (Body Surface Area) 1.79 m2 Carol Casillas CNP [facility] Work Phone: 02-28-2016 07:54-0400 Body Temperature 96.44 [degF] Carol Casillas [employer] GRAD[employer] SUPERVISOR [facility] Work Phone: 02-28-2016 07:54-0400 Height 161.29 cm Carol Casillas CNP [facility] Work Phone: 02-28-2016 07:54-0400 Weight 75.45 kg Carol Casillas CNP [facility] Work Phone: 11-27-2015 15:20-0400 Heart rate 62 /min Carol Casillas CNP [facility] Work Phone: Encounters Encounter Date Encounter Type Care Provider Facility Start: 03-28-2025 End: 03-28-2025 Patient encounter procedure [facility]EM[facility] Start: 03-28-2025 End: 03-28-[address] Beata Schwarz MD Work Phone: [facility] Start: 03-21-2025 End: 03-21-2025 Patient encounter procedure FOREMAN/PILE DRIVING AND ERECTION Sandra Soriano -[facility] [place] Work Phone: Start: 03-21-2025 End: 03-21-2025 ambulatory Beata Schwarz Facility:[facility] Start: 02-07-2025 End: 02-07-2025 Patient encounter [facility]: Start: 02-07-2025 End: 02-07-[address] Beata Schwarz MD Work Phone: [facility] Start: 12-27-2024 End: 12-27-[address] Beata Schwarz MD Work Phone: [facility] Work Phone: Start: 12-27-2024 End: 12-27-2024 Patient encounter procedure FOREMAN[employer] DR[employer]ING [employer] ERECTION [facility] Work Phone: Start: 12-27-2024 End: 12-27-2024 Patient encounter procedure FOREMAN/[employer] DRIVING AND ERECTION [facility] Work [facility]: Start: 12-27-2024 End: 12-27-[address] Beata Schwarz MD Work Phone: [facility] Work Phone: Start: 12-27-2024 End: 12-27-2024 ambulatory Beata Schwarz Facility:[facility] Start: 11-14-2024 End: 11-14-[address] Washington Rojas MD -[facility] Start: 11-14-2024 End: 11-14-2024 ambulatory Washington Rojas Facility:[facility] Start: 10-21-2024 End: 10-21-[address] Beata Schwarz MD Work Phone: [facility] Work Phone: Start: 10-21-2024 End: 10-21-2024 Patient encounter procedure Micki Laird FOREMAN/PILE DRIVING AND ERECTION-C -Laboratory, Neil Desai [facility] Start: 10-21-2024 End: 10-21-2024 ambulatory Micki Laird Facility:[facility] Start: 06-24-2024 End: 06-24-2024 ambulatory Edyta Floteddy Facility:[facility] Start: 06-16-2024 End: 06-16-2024 ambulatory Carol Casillas NP Facility:[facility] Start: 06-01-2024 Encounter for genera l adult medical examination without abnormal findings [facility] Start: 06-01-2024 End: 06-01-2024 ambulatory [facility] Facility:[facility] Start: 05-10-2024 End: 05-10-2024 ambulatory [facility] Facility:[facility] Start: 10-14-2023 End: 10-14-2023 Emergency department patient visit TARA LEON [facility] Start: 08-19-2023 End: 08-20-2023 Unknown [facility] Start: 08-19-2023 End: 08-20-2023 Subsequent hospital visit by physician Agatha Alejo MD Work Phone: [facility] Surgical Progressive Care Unit PCU H6 Comment on above: Spinal stenosis (Leda shanti Dx) Start: 08-12-2023 End: 08-12-2023 ambulatory [facility] Start: 08-12-2023 End: 08-12-2023 Encounter for other preprocedural examination [facility] Start: 07-06-2023 End: 07-06-2023 Emergency department patient visit ANDREWS LOMAS [facility] Start: 05-15-2023 End: 05-15-2023 ambulatory BEATA SCHWARZ [facility] Start: 03-30-2023 End: 03-31-2023 ambulatory EDYTAMikey FOSTER [facility] Start: 01-02-2023 End: 01-02-2023 Admission to same day surgery center Dr. Edyta Nichole Work Phone: [facility]-Pharmacoepidemiologist/Special Procedures Start: 01-02-2023 End: 01-02-[address] Edyta Nichole Work Phone: [facility] Work Phone: Start: 12-26-2022 Non-patient / Non-visit Dr. Bruna Nichole Work Phone: [facility] Start: 12-22-2022 Non-patient / Non-visit Dr. Bruna Nichole Work Phone: [facility] Start: 12-19-2022 Non-patient / Non-visit Dr. Bruna Nichole Work Phone: [facility] Start: 12-19-2022 End: 12-19-[address] Edyta Nichole Work Phone: [facility] Start: 12-16-2022 Non-patient / Non-visit Dr. Bruna Nichole Work Phone: [facility] Start: 12-16-2022 End: 12-16-[address] Edyta Nichole Work Phone: [facility] Work Phone: Start: 12-16-2022 End: 12-16-[address] [facility] Start: 12-01-2022 End: 12-01-[address] Edyta Nichole Work Phone: [facility] Start: 11-05-2022 End: 11-05-[address] Edyta Nichole Work Phone: [facility] Work Phone: Start: 11-05-2022 End: 11-05-[address] Edyta Nichole Work Phone: [facility] Start: 10-02-2022 End: 10-02-[address] Edyta Nichole Work Phone: [facility] Start: 09-30-2022 End: 09-30-[address] Edyta Nichole Work Phone: [facility] Work Phone: Start: 09-30-2022 End: 09-30-[address] Edyta Nichole Work Phone: [facility]-Pulmonary Services/Neurology Start: 08-26-2022 End: 08-26-[address] Edyta Nichole Work Phone: [facility] Start: 08-21-2022 Non-patient / Non-visit Dr. Bruna Nichole Work Phone: [facility] Start: 08-19-2022 End: 08-19-[address] Edyta Nichole Work Phone: [facility] Work Phone: Start: 08-19-2022 End: 08-19-[address] Ed[facility]ta Nichole [facility] Start: 07-24-2022 Non-patient / Non-visit Dr. Bruna Nichole Work Phone: [facility] Start: 07-23-2022 End: 07-23-[address] Edyta Nichole Work Phone: [facility] Work Phone: Start: 07-23-2022 End: 07-23-[address] Edyta Nichole Work Phone: [facility]-Pulmonary Services/Neurology Start: 07-22-2022 End: 07-22-[address] Edyta Nichole [facility] Start: 05-14-2022 End: 05-14-[address] Edyta Nichole Work Phone: [facility] Work Phone: Start: 05-14-2022 End: 05-14-[address] Edyta Nichole Work Phone: [facility] Start: 03-05-2022 End: 03-05-[address] Edyta Nichole [facility] Start: 04-17-2017 End: 04-21-2017 [facility] Date Procedure Procedure Detail Performing Clinician Start: 12-27-2024 Gram stain microscopy D sreekanth Schwarz MD Work Phone: Start: 12-27-[address]24 [address] l culture Dr. Beata Schwarz MD Work Phone: Start: 12-27-2024 X-ray of chest, PA a nd lateral views Dr. Beata Schwarz MD Work Phone: Start: 11-14-2024 X-ray of chest, PA a nd lateral views Dr. Beata Schwarz MD Work Phone: Start: 08-20-2023 Basic metabolic pane l calcium total Heidi Loving MD Work Phone: Start: 08-19-2023 FL GUIDANCE OR USE O NLY - NON-RESULTABLE Agatha M Ehrler MD Work Phone: Start: 08-19-2023 End: 08-19-2023 Lamnotmy incl w/dcmprsn nrv root 1 intrspc lumbr Agatha Alejo MD Work Phone: Start: 12-30-2022 Plain chest X-ray Dr. Idalmis Nichole Work Phone: Start: 11-05-2022 MRI of lumbar spine Dr. Edyta Nichole Work Phone: Start: 05-14-[address] Edyta mullins Work Phone: Start: 01-22-2019 Mammography Agatha myers MD Work Phone: Start: 09-26-2016 End: 10-22-2016 BWA Carol Nicholas [employer] Work Phone: Start: 09-26-2016 End: 10-22-2016 Follow Up Appt 1 month Carol Flores r PATTERN GRADER SUPERVISOR Work Phone: Start: 09-26-2016 End: 10-22-2016 Pulmonary Function Test - complete Carol Casillas PATTERN GRAD[employer] SUPERVISOR Work Phone: Start: 09-26-2016 End: 10-22-2016 Pulmonary stress test/simple Carol Casillas PATTERN GRADER SUPERVISOR Work Phone: Start: 07-10-2016 End: 07-14-2016 [facility] streptococcus group a Eddie Blank PA Work Phone: Start: 02-28-2016 End: 10-22-2016 BWMikey Casillas C [employer]EM[employer] Work Phone: Start: 02-28-2016 End: 10-22-2016 Follow Up Appt 3 months Carol Avelar er PATTERN GRADER SUPERVISOR Work Phone: Start: 02-28-2016 End: 10-22-2016 Pulmonary Function Test - complete Carol Casillas PATTERN GRADER SUPERVISOR Work Phone: Start: 02-28-2016 End: 10-22-2016 Pulmonary stress test/simple Carol Casillas CNP Work Phone: Start: 11-27-2015 End: 02-28-2016 [facility] Work Phone: Start: 11-27-2015 End: 02-28-2016 Follow Up Appt 3 months Leighton Ruiz Work Phone: Start: 05-23-2015 End: 02-28-2016 Follow Up Appt 6 months Leighton Ruiz Work Phone: Start: 01-16-2015 End: 02-28-2016 Complete sleep workup (PSG,CPAP as indicated) & Follow up Leighton Ruiz Work Phone: Start: 01-16-2015 End: 02-28-2016 Follow Up Appt 3 months Leighton Ruiz Work Phone: Start: 01-16-2015 End: 02-28-2016 Pulmonary stress test/simple Leighton Ruiz Work Phone: Plan of Treatment Date Care Activity Detail Author Start: 06-28-2031 DTaP/Tdap/Td Vaccines (2 - Td or Tdap) DTaP/Tdap/Td Vaccines (2 - Td or Tdap) [facility] Start: 12-27-2024 X-ray of chest, PA and lateral views Chest PA and Lateral [facility] Start: 12-27-2024 XR Chest PA and Lateral [facility] Start: 03-13-2023 COVID-19 Vaccine ( season) COVID-19 Vaccine ( season) [facility] Start: 03-13-2023 Influenza vaccination Influenza Vaccine (#1) [facility] Start: 10-02-2022 Patient referral [facility] Work Phone: Start: 2021 RSV Immunization aged 60 or older (1 - 1-dose 60+ series) RSV Immunization aged 60 or older (1 - 1-dose 60+ series) [facility] Start: 01-23-2020 Screening for malignant neoplasm of breast Mammogram [facility] Start: 04-22-2017 End: 04-22-2017 ROSA M Mikey [facility] Work Phone: Start: 04-22-2017 End: 04-22-2017 Follow Up Appt 6 months Follow Up Appt 6 months [facility] Work Phone: Start: 11-03-2016 End: 11-03-2016 [facility] [place] Work Phone: Start: 11-03-2016 End: 11-03-2016 Follow Up Appt 6 months Follow Up Appt 6 months [facility] Work Phone: Start: 09-26-2016 End: 10-22-2016 [facility] [place] Work Phone: Start: 09-26-2016 End: 10-22-2016 Follow Up Appt 1 month Follow Up Appt 1 month [facility] [place] Work Phone: Start: 09-26-2016 End: 10-22-2016 Pulmonary Function Test - complete Pulmonary Function Test - complete [facility] [place] Work Phone: Start: 09-26-2016 End: 10-22-2016 Pulmonary stress test/simple Pulmonary stress testing; simple (eg, 6-minute walk) [facility] Work Phone: Start: 07-10-2016 End: 07-10-2016 S. agalactiae DNA MUSTAPHA+probe Ql (Unsp spec) *GBSD - Group B Strep, DNA by PCR [facility] Work Phone: Start: 02-28-2016 End: 10-22-2016 [facility] [place] Work Phone: Start: 02-28-2016 End: 10-22-2016 Follow Up Appt 3 months Follow Up Appt 3 months [facility] [place] Work Phone: Start: 02-28-2016 End: 10-22-2016 Pulmonary Function Test - complete Pulmonary Function Test - complete [facility] Work Phone: Start: 02-28-2016 End: 10-22-2016 Pulmonary stress test/simple Pulmonary stress testing; simple (eg, 6-minute walk) [facility] Phone: Start: 02-11-2016 End: 11-27-2015 Pulmonary Function Test - complete Pulmonary Function Test - complete [facility] Phone: Start: 11-27-2015 End: 02-28-2016 [facility] [place] Phone: Start: 11-27-2015 End: 11-27-2015 Ecg routine ecg w/least 12 lds w/i&r EKG (In office) [facility] Phone: Start: 11-27-2015 End: 02-28-2016 Follow Up Appt 3 months Follow Up Appt 3 months [facility] Phone: Start: 11-27-2015 End: 11-27-2015 Nuclear stress test -Lexiscan Nuclear stress test -Lexiscan [facility] Phone: Start: 10-31-2015 End: 10-31-2015 Other Referral Other Referral Jos Cantu DC, [facility], [address], [address], [place], [address] [facility] Phone: Start: 05-23-2015 End: 02-28-2016 Follow Up Appt 6 months Follow Up Appt 6 months [facility] Phone: Start: 01-16-2015 End: 02-28-2016 Complete sleep workup (PSG,CPAP as indicated) & Follow up Complete sleep workup (PSG,CPAP as indicated) & Follow up [facility] Phone: Start: 01-16-2015 End: 02-28-2016 Follow Up Appt 3 months Follow Up Appt 3 months [facility] Phone: Start: 01-16-2015 End: 02-28-2016 Pulmonary Function Test - complete Pulmonary Function Test - complete [facility] Phone: Start: 01-16-2015 End: 02-28-2016 Pulmonary stress test/simple Pulmonary stress testing; simple (eg, 6-minute walk) [facility] [place] Work Phone: Start: 2011 Zoster Vaccines (1 of 2) Zoster Vaccines (1 of 2) [facility] Start: 1991 Screening for malignant neoplasm of cervix [facility] Start: 1982 Screening for malignant neoplasm of cervix Pap Smear [facility] Start: 1979 Diabetes mellitus screening Diabetes Screening [facility] Start: 1979 Hepatitis C screening Hepatitis C Screening [facility] Start: 1973 Depression Screening Depression Screening [facility] Start: 1967 Pneumococcal Vaccine: Pediatrics (0 to 5 Years) and At-Risk Patients (6 to 64 Years) (1 of 2 - PCV) Pneumococcal Vaccine: Pediatrics (0 to 5 Years) and At-Risk Patients (6 to 64 Years) (1 of 2 - PCV) [facility] Start: 1962 MMR Vaccines (1 of 1 - Standard series) MMR Vaccines (1 of 1 - Standard series) [facility] Start: 1961 HIV screening HIV Screening [facility] Start: 1961 Lipid panel Lipid Panel [facility] Start: 1961 Screening for malignant neoplasm of colon [facility] Bacteria identified in Sputum by Culture [facility] CBC W Auto Different ial panel - Blood [facility] CT Chest [facility] Measurement of respiratory function [facility] Patient referral [facility] Work Phone: [facility] Immunizations Immunization Date Immunization Notes Care Provider Fa cility 03-28-2025 influenza, injectabl e, madin christina canine kidney, preservative free Dr. Beata Schwarz MD Work Phone: [facility] 05-09-2021 influenza virus vaccine, unspecified formulation Agatha Alejo MD Work Phone: [facility] 05-12-2016 influenza, injectabl e, quadrivalent, preservative free Dr. Beata Schwarz MD Work Phone: [facility] 05-12-2016 influenza, seasonal, injectable Dr. Edyta Nichole Work Phone: [facility] 06-25-2015 influenza, injectabl e, quadrivalent, preservative free Dr. Beata Schwarz MD Work Phone: [facility] 06-25-2015 influenza, seasonal, injectable Dr. Edyta Nichole Work Phone: [facility] 04-12-2014 influenza, injectabl e, quadrivalent, preservative free Dr. Beata Schwarz MD Work Phone: [facility] 04-12-2014 influenza, seasonal, injectable Dr. Edyta Nichole Work Phone: [facility] Payers Date Payer Category Payer Self-pay [id number] 2024 Unknown [id number] 2022 Unknown [id number] 2022 Unknown [employer] [id number] 2022-Present [address] [place] [address] Commercial [id number] 2016 Unknown [id number] 1960 Unknown [id number] [id number]. 66 1961 Unknown [id number] 2.16.840.1.132252.3.579.2. 66 1961 Unknown [id number] 2.16.840.1.617103.3.579.2. 66 1960 Unknown [id number] 2.16.840.1.530140.3.579.2. 651 Private Health Insurance [id number] Unknown COMMERCIAL OTHER [id number] Unknown [facility] [id number] Unknown [id number] 2.16.840.1.785712.3.579.2. 462 Unknown [id number] 2.16.840.1.798174.3.579.2. 462 Unknown [id number] 2.16.840.1.681519.3.579.2. 462 Unknown [id number] 2.16.840.1.608937.3.579.2. 462 Unknown [id number] 2.16.840.1.026603.3.579.2. 462 Unknown [id number] 2.16.840.1.425604.3.579.2. 462 Unknown [id number] 2.16.840.1.390570.3.579.2. 462 Unknown [id number] 2.16.840.1.573424.3.579.2. 462 Unknown [id number] 2.16.840.1.037944.3.579.2. 462 Unknown [id number] 2.16.840.1.222006.3.579.2. 462 Unknown [id number] 2.16.840.1.019254.3.579.2. 462 Unknown [id number] 2.16.840.1.578833.3.579.2. 462 Social History Date Type Detail Facility Start: 03-05-2022 End: 01-02-2023 Tobacco smoking status NHIS Unknown if ever smoked [facility] Start: 09-28-2016 Cigarettes;- [facility] Start: 1960 Sex Assigned At Female [facility] Start: 08-12-2023 End: 12-27-2024 Tobacco smoking status NHIS Smokes tobacco daily [facility] History of tobacco use Cigarette Smoker [facility] Start: 08-12-2023 End: 08-19-2023 Cigarettes smoked current (pack per day) - Reported 0.5 [facility] Start: 08-12-2023 Tobacco use and exposure Smokeless tobacco non-user [facility] Start: 08-19-2023 Alcohol intake Ex-drinker (finding) [facility] Start: 08-19-2023 [facility] Start: 08-12-2023 Tobacco Comment Trying to quit , down to 1-2 cigarettes per day now [facility] Start: 1960 Sex Assigned At Not on file [facility] Start: 10-26-2024 Sex Female (finding) [facility] NEGATED: Highlighted rowStart: NINF History of tobacco use Passive smoker [facility] Medical Equipment Procedure Code Equipment Code Equipment Origin al Text Equipment Identifier Dates Peripheral arter y stent, bare-metal [id number] FDA Start: 01-02-2023 Clinical Notes 07-24-2022 to 12-27-2024 Note Date & Type Note Facility 12-27-2024 Evaluation note Diagnosis Onset Date Resolution Asthma-COPD overlap syndrome chronic December 27, 2024 9:14am Smoking greater than 30 pack years chronic December 27, 2024 9:14am [facility] Work Phone: 1(154) 481-405806-17-2025 Evaluation note* Diagnosis Onset Date Resolution Status Admit Date Asthma-COPD overlap syndrome chronic December 27, 2024 9:14am Smoking greater than 30 pack years chronic December 27, 2024 9:14am Asthma-COPD overlap syndrome chronic February 07, 2025 8:59am Smoking greater than 30 pack years chronic February 07, 2025 8:59am [facility] Work Phone: 1(840) 156-999606-17-2025 Evaluation note* Diagnosis Onset Date Resolution Status Admit Date Asthma-COPD overlap syndrome chronic December 27, 2024 9:14am Smoking greater than 30 pack years chronic December 27, 2024 9:14am Asthma-COPD overlap syndrome chronic February 07, 2025 8:59am Smoking greater than 30 pack years chronic February 07, 2025 8:59am Asthma-COPD overlap syndrome chronic March 28, 2025 12:37pm Smoking greater than 30 pack years chronic March 28, 2025 12:37pm [facility] Work Phone: 1(526) 857-699302-08-2024 Miscellaneous Notes* Care Coordination - Unknown Case Management - 08/20/2023 4:57 PM EST Patient Choice Patient Name: VIOLETTA LINDER Date of : 1960 All Providers Sent Referral Name: Home Health Services [facility] Address: [address], [address] [place] [address] Name: [facility] Address: [address] [place] [address] Name: [facility] Address: [address] [place] [address] Name: [facility] Address: [address] [place] [address] Name: [facility] Address: [address] [place] [address] Name: [facility] Phone: [phone] Address: [address] [place], [place] [id number] * Home Care - Dina Shelton RN - 08/20/2023 3:36 PM EST [facility] called, as no response had been received via [facility] at this time. Referral sent to several additional agencies as discharge order noted in Epic. Pt agreeable to first available agency. 4pm update: [facility] is able to accept. Pt updated. Will send updated documentsfor SOC tomorrow . Attempted to reach PCP and Dr. Alejo to determine who will follow for home care. Edyta Nichole, pt's pcp will follow for home care. Also her name was updated in [facility], the PCP previously documented was incorrect. * Care Coordination - Ximena Albarado RN - 08/20/2023 2:40 PM EST Care Managment Initial Assessment Date: 08/20/2023 Patient Name: Violetta Linder : 1960 Patient Information Source of Information: Patient Cognition/Language: WFL - Within Functional Limits Permission given to speak with patient mortician supplies sales representative/caregiver as indicated: Confirmation of Payer with patient/family: Yes Payer Name: [employer] [place]: No Confirmation of Primary Care Physician: Confirmed PCP Name: BRIAN Sadler Seen in last 2 years?: Yes Primary Caregiver: Self If assistance needed, confirmed caregiver ready, willing and able to care for patient at discharge: Confirmed with: Living Arrangements Current Residence: House Number of Floors 2 Number of Entry Steps: 2 Bed/Bath Levels: Both second floor Facility: Facility Name: Plan to Return: Lives with: Alone Support Systems: Family members, Friends/neighbors Activities of Daily Living Ambulation: Independent Bathing/Dressing: Independent Elimination/Continence/Toileting: Independent Feeding: Independent Who Assists with Activities of Daily Living: Instrumental Activities of Daily Living Prescription Coverage: Yes [facility]acy Used[facility] [place] Medication Management: Independent Transportation/Shopping: Independent Transportation Mode: Car Needs Assistance with Transportation at Discharge: No Meal Preparation: Independent Laundry/Cleaning: Independent Finances/Bill Paying: Independent Communication: Independent Types of Care Services/Equipment Utilized Care Services: Dialysis Type: Durable Medical Equipment: Other (Comment) DME Provider: nebulizer Patient's Goal/Discharge Plan Patient expects to be discharged to: Discharge Planning Actions: Continue to follow Patient's Choice Rights and [employer] and Collaborative Relationships Disclosed as Indicated for Post-Acute Care: Interdisciplinary Team Engagement: Social Work Referral for: Additional Information: 63 yo female admitted to for surgery 08/19/23: Microdiscectomy, foramenectomy L4, 4,5. PT/OT recommending home with home health. Met with pt; explained role of tcc. Pt lives alone. She is independent adls and uses a nebulizer as needed. Pt is agreeable to home care at discharge and is requesting [facility]. FRITZ Jules made aware. Pt denies any other needs from tcc. Anticipate possible dc home tomorrow if medically stable. at2:44 PM Ximena Albarado RN * Home Care - Dina Shelton RN - 08/20/2023 10:46 AM EST Spoke with pt at bedside and pt is agreeable to PT (declined/denied OT needs) at home following discharge. Pt requested [facility] and referral was sent. She stated if they are unable to accept, she'll be happy with first accepting agency. [facility] is unable to staff that area with PTat this time. Pt denied DME needs. * Home Care - Dina Shelton RN - 08/20/2023 9:29 AM EST Urologist Physician following case for Discharge Needs. * Care Plan - Kathleen Gee RN - 08/19/2023 6:47 PM EST The patient is Moderately Stable - Low risk of patient condition declining or worsening The patient's goals for the shift include pain control The clinical goals for the shift include pain control Over the shift, the patient did not make progress toward the following goals. Barriers to progression include . Recommendations to address these barriers include . * Perioperative Nursing Note - Renae Lerner RN - 08/19/2023 4:00 PM EST Assisted pt to turn onto left side * Perioperative Nursing Note - Renae Lerner RN - 08/19/2023 3:10 PM EST Called for family to come back to see pt per pt request * Perioperative Nursing Note - Renae Lerner RN - 08/19/2023 3:02 PM EST Called and provided update to family listed in chart for this visit * Perioperative Nursing Note - Renae Lerner RN - 08/19/2023 2:32 PM EST Assisted pt to reposition in bed documented in this [facility]02-08-2024 Note* Care Coordination - Unknown Case Management - 08/20/2023 4:57 PM EST Patient Choice Patient Name: VIOLETTA LINDER Date of : 1960 All Providers Sent Referral Name: Home Health Services [facility] Address: [address] [place] [address] Name: [facility] Address: [address] [place] [address] Name: [facility] Address: [address] [place] [address] Name: [facility] Address: [address] [place] [address] Name: [facility] Address: [address] [place] [address] [address]: [facility] Phone: [phone] Address: [address] [place] [address] [id number] [facility]* Care Coordination - Unknown Case Management - 08/20/2023 4:57 PM EST Patient Choice Patient Name: VIOLETTA LINDER Date of : 1960 All Providers Sent Referral Name: Home Health Services [facility] Address: [address] [place] [address] Name: [facility] Address: [address] [place] [address] Name: [facility] Address: [address] [place] [address] Name: [facility] Address: [address] [place] [address] Name: [facility] Address: [address] [place] [address] Name: [facility] Phone: [phone] Address: [address] [place] [address] [id number] Note* Home Care - Dina Shelton RN - 08/20/2023 3:36 PM EST [facility] called, as no response had been received [facility] at this time. Referral sent to several additional agencies as discharge order noted in [facility]. Pt agreeable to first available agency. 4pm update: [facility] is able to accept. Pt updated. Will send updated documentsfor SOC tomorrow . Attempted to reach PCP and Dr. Alejo to determine who will follow for home care. Edyta Nichole, pt's pcp will follow for home care. Also her name was updated in [facility], the PCP previously documented was incorrect. [id number] Note* Home Care - Dina Shelton RN - 08/20/2023 3:36 PM EST [facility] called, as no response had been received via [facility] at this time. Referral sent to several additional agencies as discharge order noted in Epic. Pt agreeable to first available agency. 4pm update: [facility] is able to accept. Pt updated. Will send updated documentsfor SOC tomorrow . Attempted to reach PCP and Dr. Alejo to determine who will follow for home care. Edyta Nichole, pt's pcp will follow for home care. Also her name was updated in [employer] [facility], the PCP previously documented was incorrect. [id number] NoteHospitalist Progress Note 08/20/2023 Subjective: Admit Date: 08/19/2023 PCP: BRIAN Sadler Room#: H-6126/H-6126 A Interval History: Patient seen in consultation. Denies any headache, dizziness, chest pain. Currently only smokes 1 cigarette daily. Afebrile. Complaining of back pain. Objective: Vitals: BP 104/58 (BP Location: Left arm, Patient Position: Sitting) Pulse 85 Temp 36.7 ?C (98.1 ?F) (Temporal) Resp 13 Ht 5' 2.99 (1.6 m) Wt 153 lb 3.5 oz (69.5 kg) SpO2 96% BMI 27.15 kg/m? Pulse Ox: SpO2 Av.7 % Min: 91 % Max: 100 % Supplemental O2: O2 Flow Rate (L/min): 2 L/min Pertinent physical exam: Physical Exam Cardiovascular: Rate and Rhythm: Normal rate and regular rhythm. Pulmonary: Effort: Pulmonary effort is normal. Breath sounds: Normal breath sounds. Neurological: General: No focal deficit present. Mental Status: She is oriented to person, place, and time. Assessment Acute, acute on chronic, unstable/uncontrolled chronic problems: COPD not in exacerbation Status post lumbar laminectomy and decompression surgery Stable chronic problems affecting care, new non-acute diagnoses: Tobacco abuse MDM/Plan Continue with aerosols, follow clinically Smoking cessation advised, patient agreeable Pain control and postop care per primary team Adult diet Regular 24HR INTAKE/OUTPUT: Intake/Output Summary (Last 24 hours) at 08/20/2023 1314 Last data filed at 08/20/2023 1057 Gross per 24 hour Intake 2435 ml Output 25 ml Net 2410 ml LABS: CBC: Recent Labs 08/20/23116 WBC 12.4* RBC 4.14 HGB 12.6 HCT 38.5 MCV 93.0 RDW 13.5 PLT 230 BMP: Recent Labs 08/20/23116 NA 134* K 4.3 CL 100 CO2 28 BUN 14 CREATININE 0.51* GLUCOSE 146* CALCIUM 8.4 ANIONGAP 6 LIVER PROFILE:No results for input(s): AST, ALT, BILITOT, ALKPHOS, PROT in the last 72 hours. No lab exists for component: LABALBU PT/INR: Recent Labs 08/20/23116 PROTIME 10.6 INR 1.0 CARDIAC ENZYMES: No results for input(s): TROPONINI in the last 72 hours. Procalcitonin: No results found for: PROCAL Medications: Scheduled acetaminophen, 1,000 mg, Oral, q6h methocarbamol, 750 mg, Oral, 3 times per day mometasone-formoterol, 2 puff, Inhalation, BID [Held by provider] Non-Formulary Medication, 2 puff, Inhalation, BID tiotropium, 2 puff, Inhalation, Daily PRN PRN medications: albuterol, HYDROmorphone OR HYDROmorphone, naloxone, ondansetron ODT OR ondansetron, oxyCODONE OR oxyCODONE Extended Emergency Contact Information Primary Emergency Contact: Shon Cabral Mobile Relation: Nephew Preferred language: [place] Wheel Borer needed? No Heber Chan MD Division of Hospitalist Medicine [facility]02-08-2024 Note* Care Coordination - Ximena Albarado RN - 08/20/2023 2:40 PM EST Care Managment Initial Assessment Date: 08/20/2023 Patient Name: Violetta Linder : 1960 Patient Information Source of Information: Patient Cognition/Language: WFL - Within Functional Limits Permission given to speak with patient mortician supplies sales representative/caregiver as indicated: Confirmation of Payer with patient/family: Yes Payer Name: [employer] [place]: No Confirmation of Primary Care Physician: Confirmed PCP Name: BRIAN Sadler Seen in last 2 years?: Yes Primary Caregiver: Self If assistance needed, confirmed caregiver ready, willing and able to care for patient at discharge: Confirmed with: Living Arrangements Current Residence: House Number of Floors 2 Number of Entry Steps: 2 Bed/Bath Levels: Both second floor Facility: Facility Name: Plan to Return: Lives with: Alone Support Systems: Family members, Friends/neighbors Activities of Daily Living Ambulation: Independent Bathing/Dressing: Independent Elimination/Continence/Toileting: Independent Feeding: Independent Who Assists with Activities of Daily Living: Instrumental Activities of Daily Living Prescription Coverage: Yes Pharmacy Used: [facility] [place] Medication Management: Independent Transportation/Shopping: Independent Transportation Mode: Car Needs Assistance with Transportation at Discharge: No Meal Preparation: Independent Laundry/Cleaning: Independent Finances/Bill Paying: Independent Communication: Independent Types of Care Services/Equipment Utilized Care Services: Dialysis Type: Durable Medical Equipment: Other (Comment) DME Provider: nebulizer Patient's Goal/Discharge Plan Patient expects to be discharged to: Discharge Planning Actions: Continue to follow Patient's Choice Rights and [employer] and Collaborative Relationships Disclosed as Indicated for Post-Acute Care: Interdisciplinary Team Engagement: Social Work Referral for: Additional Information: 63 yo female admitted to for surgery 08/19/23: Microdiscectomy, foramenectomy L4, 4,5. PT/OT recommending home with home health. Met with pt; explained role of tcc. Pt lives alone. She is independent adls and uses a nebulizer as needed. Pt is agreeable to home care at discharge and is requesting [facility]. [facility] Dhara made aware. Pt denies any other needs from tcc. Anticipate possible dc home tomorrow if medically stable. at2:44 PM Ximena Albarado RN [id number] Note* Care Coordination - Ximena Albarado RN - 08/20/2023 2:40 PM EST Care Managment Initial Assessment Date: 08/20/2023 Patient Name: Violetta Linder : 1960 Patient Information Source of Information: Patient Cognition/Language: WFL - Within Functional Limits Permission given to speak with patient mortician supplies sales representative/caregiver as indicated: Confirmation of Payer with patient/family: Yes Payer Name: [employer] : No Confirmation of Primary Care Physician: Confirmed PCP Name: BRIAN Sadler Seen in last 2 years?: Yes Primary Caregiver: Self If assistance needed, confirmed caregiver ready, willing and able to care for patient at discharge: Confirmed with: Living Arrangements Current Residence: House Number of Floors 2 Number of Entry Steps: 2 Bed/Bath Levels: Both second floor Facility: Facility Name: Plan to Return: Lives with: Alone Support Systems: Family members, Friends/neighbors Activities of Daily Living Ambulation: Independent Bathing/Dressing: Independent Elimination/Continence/Toileting: Independent Feeding: Independent Who Assists with Activities of Daily Living: Instrumental Activities of Daily Living Prescription Coverage: Yes Pharmacy Used: [facility] [place] [place] Medication Management: Independent Transportation/Shopping: Independent Transportation Mode: Car Needs Assistance with Transportation at Discharge: No Meal Preparation: Independent Laundry/Cleaning: Independent Finances/Bill Paying: Independent Communication: Independent Types of Care Services/Equipment Utilized Care Services: Dialysis Type: Durable Medical Equipment: Other (Comment) DME Provider: nebulizer Patient's Goal/Discharge Plan Patient expects to be discharged to: Discharge Planning Actions: Continue to follow Patient's Choice Rights and [employer] and Collaborative Relationships Disclosed as Indicated for Post-Acute Care: Interdisciplinary Team Engagement: Social Work Referral for: Additional Information: 63 yo female admitted to for surgery 08/19/23: Microdiscectomy, foramenectomy L4, 4,5. PT/OT recommending home with home health. Met with pt; explained role of tcc. Pt lives alone. She is independent adls and uses a nebulizer as needed. Pt is agreeable to home care at discharge and is requesting [facility]. [facility] Dhara made aware. Pt denies any other needs from tcc. Anticipate possible dc home tomorrow if medically stable. at2:44 PM Ximena Albarado RN [facility] [place] [id number] NoteOCCUPATIONAL THERAPY Formerly [facility] Initial Evaluation Name/MRN: Violetta Linder ([id number]) Evaluation Date: 08/20/2023 Date of : 1960 Admission Date: 08/19/2023 9:37 AM Age: 63 y.o. [facility] Discharge Recommendation: Home with assist PRN Assessment IMPRESSION: Pt was mod indep - independent during mobility. Pt required min hand-held assist to stand from toilet. Limited by pain throughout session. Required consistent verbal reminders of BLT spinal precautions during transfers. Pt is at baseline and does not require further OT services at this time. Anticipate home with home health PT and assist PRN (pt declines home OT needs) . Discharge OT. Performance Deficits /Impairments: Increased Pain and Decreased Endurance Prognosis: Good Decision Making: Low Complexity Subjective Pt met in bedside chair. Agreeable to OT. Pain: 0-10 pain scale: 7/10 Location: low back Pt reports 10/10 pain upon mobility. Diagnosis: s/p microdiscectomy, foraminotomy L3-L4, L4-L5 right and posterior lumbar laminectomy facetectomy foraminotomy and decompression on 08/19 Past Medical History: Past Medical History: Diagnosis Date Arthritis Asthma COPD (chronic obstructive pulmonary disease) ([facility]) Past Surgical History: Past Surgical History: Procedure Laterality Date CARDIAC CATHETERIZATION CARPAL TUNNEL RELEASE Bilateral MINIMALLY INVASIVE FORAMINOTOMY CERVICAL SPINE 08/19/2023 MICRODISCECTOMY, FORAMINOTOMY LUMBAR 3-4, LUMBAR 4-5 RIGHT - Right SPINAL FUSION Admission Diagnosis: Patient Active Problem List Diagnosis Date Noted Spinal stenosis 08/19/2023 Medical Precautions: No active isolations Proper PPE donned/doffed in accordance with facility standards. Fall Risk: [place]is Fall Risk Score: 35 (Medium Risk) Precautions/Restrictions: Spine Precautions: No Bending, No Lifting, No Twisting Family/Caregiver Present: none Overall Cognitive Status: WFL Overall Orientation Status: Oriented x4 Social/Functional History Prior Level of Function ADL Assistance: Independent Ambulation Assistance: Independent Transfer Assistance: Independent Objective ADLs LE Dressing: Independent, Pt able to doff/don socks in figure four position with cues for BLT spinal precautions. Education provided on adaptive equipment available for LB dressing. Upper Extremity Assessment AROM: WFL Strength: WFL Vision: wears glasses at all times and and are being used during the eval Hearing: normal Transfers/Functional Mobility Sit to stand: Independent, verbal cues for feet and hand positioning and BLT precautions. Stand to sit: Independent Toilet: Min Assist, Pt able to sit with mod indep reaching with RUE onto toilet seat to lower. Required min assist for R hand to stand from toilet. Pt reported BLEs feeling weak. Sitting balance: Independent Standing balance: Modified Independent, pt using bed rail and quevedo for balance. Functional mobility: Modified Independent, Min Assist, Pt able to ambulate from bedside chair to toilet with mod indep, perform toilet transfer with min assist, and ambulate back to chair with mod indep. Device(s) used: none Coordination: WFL Tone: WFL Sensation: WFL AM-PAC AM-PAC Inpatient Daily Activity Raw Score: 23 ADL Inpatient CMS G-Code Modifier: CI Plan No skilled acute OT indicated at this time. Please reconsult should changes occur. Safety/Education Safety Safety Devices in place: All fall risk precautions in place, call light within reach, left in chair, and no alarms engaged upon entry Restraints: N/A Education Education Given To: patient Education Provided: OT Role, Plan of Care, Precautions, ADL Adaptive Strategies, Transfer Training, Equipment, Discharge Recommendations, and Benefits of Increasing Activity Education Method: Verbal Barriers to Learning: None Education Outcome: Verbalized Understanding and Demonstrated Understanding Goals Patient Stated Goal: to go home and receive more therapy Therapy Time Individual Co-treatment Time In 1059 Time Out 1120 Minutes 21 Mary Gill/OT Patient's Occupational Therapy Plan of Care supervision is transferred to a [facility] Occupational Therapist. Goals and/or treatment plan was established in collaboration with patient/family/other representatives.[facility]02-08-2024 History of Present illness Narrative* Heber Chan MD - 08/20/2023 1:14 PM EST Images from the original note were not included. Hospitalist Progress Note 08/20/2023 Subjective: Admit Date: 08/19/2023 PCP: BRIAN Sadler Room#: H-6126/H-6126 A Interval History: Patient seen in consultation. Denies any headache, dizziness, chest pain. Currently only smokes 1 cigarette daily. Afebrile. Complaining of back pain. Objective: Vitals: BP 104/58 (BP Location: Left arm, Patient Position: Sitting) Pulse 85 Temp 36.7 C (98.1F) (Temporal) Resp 13 Ht 5' 2.99 (1.6 m) Wt 153 lb 3.5 oz (69.5 kg) SpO2 96% BMI 27.15 kg/m Pulse Ox: SpO2 Av.7 % Min: 91 % Max: 100 % Supplemental O2: O2 Flow Rate (L/min): 2 L/min Pertinent physical exam: Physical Exam Cardiovascular: Rate and Rhythm: Normal rate and regular rhythm. Pulmonary: Effort: Pulmonary effort is normal. Breath sounds: Normal breath sounds. Neurological: General: No focal deficit present. Mental Status: She is oriented to person, place, and time. Assessment Acute, acute on chronic, unstable/uncontrolled chronic problems: COPD not in exacerbation Status post lumbar laminectomy and decompression surgery Stable chronic problems affecting care, new non-acute diagnoses: Tobacco abuse MDM/Plan Continue with aerosols, follow clinically Smoking cessation advised, patient agreeable Pain control and postop care per primary team Adult diet Regular 24HR INTAKE/OUTPUT: Intake/Output Summary (Last 24 hours) at 08/20/2023 1314 Last data filed at 08/20/2023 1057 Gross per 24 hour Intake 2435 ml Output 25 ml Net 2410 ml LABS: CBC: Recent Labs 08/20/23 0117 WBC 12.4* RBC 4.14 HGB 12.6 HCT 38.5 MCV 93.0 RDW 13.5 PLT 230 BMP: Recent Labs 08/20/23 0117 NA 134* K 4.3 CL 100 CO2 28 BUN 14 CREATININE 0.51* GLUCOSE 146* CALCIUM 8.4 ANIONGAP 6 LIVER PROFILE:No results for input(s): AST, ALT, BILITOT, ALKPHOS, PROT in the last 72 hours. No lab exists for component: LABALBU PT/INR: Recent Labs 08/20/23 0117 PROTIME 10.6 INR 1.0 CARDIAC ENZYMES: No results for input(s): TROPONINI in the last 72 hours. Procalcitonin: No results found for: PROCAL Medications: Scheduled acetaminophen, 1,000 mg, Oral, q6h methocarbamol, 750 mg, Oral, 3 times per day mometasone-formoterol, 2 puff, Inhalation, BID [Held by provider] Non-Formulary Medication, 2 puff, Inhalation, BID tiotropium, 2 puff, Inhalation, Daily PRN PRN medications: albuterol, HYDROmorphone OR HYDROmorphone, naloxone, ondansetron ODT OR ondansetron, oxyCODONE OR oxyCODONE Extended Emergency Contact Information Primary Emergency Contact: Shon Cabral Mobile Relation: Nephew Preferred language: [place] Wheel Borer needed? No Heber Chan MD Division of Hospitalist Medicine [facility] * Merline Gutierrezelie - 08/20/2023 11:26 AM EST Images from the original note were not included. OCCUPATIONAL THERAPY Formerly [facility] Initial Evaluation Name/MRN: Violetta Linder ([id number]) Evaluation Date: 08/20/2023 Date of : 1960 Admission Date: 08/19/2023 9:37 AM Age: 63 y.o. Room/Bed: 77/2110 A Discharge Recommendation: Home with assist PRN Assessment IMPRESSION: Pt was mod indep - independent during mobility. Pt required min hand-held assist to stand from toilet. Limited by pain throughout session. Required consistent verbal reminders of BLT spinal precautions during transfers. Pt is at baseline and does not require further OT services at this time. Anticipate home with home health PT and assist PRN (pt declines home OT needs) . Discharge OT. Performance Deficits /Impairments: Increased Pain and Decreased Endurance Prognosis: Good Decision Making: Low Complexity Subjective Pt met in bedside chair. Agreeable to OT. Pain: 0-10 pain scale: 7/10 Location: low back Pt reports 10/10 pain upon mobility. Diagnosis: s/p microdiscectomy, foraminotomy L3-L4, L4-L5 right and posterior lumbar laminectomy facetectomy foraminotomy and decompression on 08/19 Past Medical History: Past Medical History: Diagnosis Date Arthritis Asthma COPD (chronic obstructive pulmonary disease) ([facility]) Past Surgical History: Past Surgical History: Procedure Laterality Date CARDIAC CATHETERIZATION CARPAL TUNNEL RELEASE Bilateral MINIMALLY INVASIVE FORAMINOTOMY CERVICAL SPINE 08/19/2023 MICRODISCECTOMY, FORAMINOTOMY LUMBAR 3-4, LUMBAR 4-5 RIGHT - Right SPINAL FUSION Admission Diagnosis: Patient Active Problem List Diagnosis Date Noted Spinal stenosis 08/19/2023 Medical Precautions: No active isolations Proper PPE donned/doffed in accordance with facility standards. Fall Risk: Wallis Fall Risk Score: 35 (Medium Risk) Precautions/Restrictions: Spine Precautions: No Bending, No Lifting, No Twisting Family/Caregiver Present: none Overall Cognitive Status: WFL Overall Orientation Status: Oriented x4 Social/Functional History Prior Level of Function ADL Assistance: Independent Ambulation Assistance: Independent Transfer Assistance: Independent Objective ADLs LE Dressing: Independent, Pt able to doff/don socks in figure four position with cues for BLT spinal precautions. Education provided on adaptive equipment available for LB dressing. Upper Extremity Assessment AROM: WFL Strength: WFL Vision: wears glasses at all times and and are being used during the eval Hearing: normal Transfers/Functional Mobility Sit to stand: Independent, verbal cues for feet and hand positioning and BLT precautions. Stand to sit: Independent Toilet: Min Assist, Pt able to sit with mod indep reaching with RUE onto toilet seat to lower. Required min assist for R hand to stand from toilet. Pt reported BLEs feeling weak. Sitting balance: Independent Standing balance: Modified Independent, pt using bed rail and qu[place]edo for balance. Functional mobility: Modified Independent, Min Assist, Pt able to ambulate from bedside chair to toilet with mod indep, perform toilet transfer with min assist, and ambulate back to chair with mod indep. Device(s) used: none Coordination: WFL Tone: WFL Sensation: WFL AM-PAC AM-PAC Inpatient Daily Activity Raw Score: 23 ADL Inpatient CMS G-Code Modifier: CI Plan No skilled acute OT indicated at this time. Please reconsult should changes occur. Safety/Education Safety Safety Devices in place: All fall risk precautions in place, call light within reach, left in chair, and no alarms engaged upon entry Restraints: N/A Education Education Given To: patient Education Provided: OT Role, Plan of Care, Precautions, ADL Adaptive Strategies, Transfer Training,Equipment, Discharge Recommendations, and Benefits of Increasing Activity Education Method: Verbal Barriers to Learning: None Education Outcome: Verbalized Understanding and Demonstrated Understanding Goals Patient Stated Goal: to go home and receive more therapy Therapy Time Individual Co-treatment Time In 1059 Time Out 1120 Minutes 21 Mary Gill/OT Patient's Occupational Therapy Plan of Care supervision is transferred to a [facility] Services Occupational Therapist. Goals and/or treatment plan was established in collaboration with patient/family/other representatives. * Karin Malachi - 08/20/2023 10:13 AM EST Images from the original note were not included. PHYSICAL THERAPY Formerly [facility] Initial Evaluation Name/MRN: Violetta Linder ([id number]) Evaluation Date: 08/20/2023 Date of : 1960 Admission Date: 08/19/2023 9:37 AM Age: 63 y.o. Room/Bed: H-6126/H-6126 A Discharge Recommendation: Home with nursing unit clerk, Home with Home health PT Equipment Needed: Yes Other: bedside commode due to pt needing grab bars to get on/off commode. Assessment IMPRESSION: Pt was admitted for spinal stenosis. Pt s/p microdiscectomy, foraminotomy L3-L4, L4-L5 right and posterior lumbar laminectomy facetectomy foraminotomy and decompression on 08/19. Pt was modified independent with bed mobility, transfers, ambulation, and stair negotiation. Recommend home with aide and home health PT to address balance and strengthening. Diagnosis: s/p microdiscectomy, foraminotomy L3-L4, L4-L5 right and posterior lumbar laminectomy facetectomy foraminotomy and decompression on 08/19 Prognosis: good Performance Deficits /Impairments: Decreased Functional Mobility and Decreased Balance Decision Making: Medium Complexity Subjective Pt was in bed. Pt was agreeable to PT. Pt stated low back pain started at 10/10 when entering room and decreased to 7/10 during ambulation. Pt denied any SOB or dizziness during ambulation. Pt statedshe has ambulated independently since surgery. Pain: 7-10/10 low back pain Past Medical History: Past Medical History: Diagnosis Date Arthritis Asthma COPD (chronic obstructive pulmonary disease) ([facility]) Past Surgical History: Past Surgical History: Procedure Laterality Date CARDIAC CATHETERIZATION CARPAL TUNNEL RELEASE Bilateral MINIMALLY INVASIVE FORAMINOTOMY CERVICAL SPINE 08/19/2023 MICRODISCECTOMY, FORAMINOTOMY LUMBAR 3-4, LUMBAR 4-5 RIGHT - Right SPINAL FUSION Admission Diagnosis: Patient Active Problem List Diagnosis Date Noted Spinal stenosis 08/19/2023 Medical Precautions: No active isolations Proper PPE donned/doffed in accordance with facility standards. Fall Risk: Wallis Fall Risk Score: 45 (High Risk) Precautions/Restrictions: Spine Precautions: No Bending, No Lifting, No Twisting Lines/Drains/Airways: PIV Family/Caregiver Present: none Overall Cognitive Status: WFL Overall Orientation Status: Oriented x4 Vision: pt was wearing glasses Hearing: WFL Social/Functional History Patient admitted from home. Lives With: Alone Type of Home: single family home Home Layout: Two Level Home, bed/bath on second level with 14 steps Home Access: Stairs to Enter with Rails (# of stairs: 2) Bathroom Shower/Tub: Toilet: higher height per pt Home Equipment: none Homemaking Responsibilities: Independent Receives Help From: Family (nephew) Active Fabrication Manager: Yes Prior Level of Function ADL Assistance: Independent Ambulation Assistance: Independent Transfer Assistance: Independent Objective Lower Extremity Assessment AROM: bilateral LE WFL PROM: Not assessed this session Strength: at least 3/5 hip, knee, and ankle observed with AROM Bed Mobility: Supine to sit: Modified Independent with log roll technique Transfers Sit to stand: Modified Independent with bilateral UE on bed/chair to assist Stand to sit: Modified Independent with bilateral UE on bed/chair Pt performed 4 repetitions of STS. Pt required mod verbal cueing for transfer technique to avoid bending. Ambulation Ambulation 1 Assistive device(s) used: none Assist level: independent to mod-independent; pt reaching for hallway rail intermittently Distance (ft): 108 Quality of gait: No LOB, reciprocal stepping, narrow VEENA, slow rey Ambulation 2 Assistive device(s) used: none Assist level: Independent, Modified Independent; pt reaching for hallway rail intermittently Distance (ft): 108 Quality of gait: No LOB, reciprocal stepping, narrow VEENA, slow rey Balance: Posture: poor Sitting - Static: Independent Sitting - Dynamic: Modified Independent with L UE on bed Standing - Static: Independent Standing - Dynamic: Independent- Modified Independent with reaching for handrails Stairs Stairs 1 Assistive device(s) used: none Assist level: Modified Independent # of steps: 3 ascended and descended Rails: right Additional factors: non-reciprocal going up, non-reciprocal going down Outcome Measures AM-[facility] How much HELP from another person do you currently need Turning from your back to your side while in a flat bed without using bedrails?: None Moving from lying on your back to sitting on the side of a flat bed without using bedrails?: None Moving to and from a bed to a chair (including a wheelchair)?: None Standing up from a chair using your arms (wheelchair or bedside chair)?: None Walking in a hospital room?: None Stair climbing assessed?: Yes Climbing 3-5 steps with a railing?+: None AM-[facility] Inpatient Mobility Raw Score : 24 AM-[facility] Inpatient Mobility Raw Score (No Stairs) : 20 [facility] Score: Walked 25 ft or more (i.e. walked outside of room) Plan No skilled acute PT indicated at this time. Please reconsult should changes occur. Safety/Education Safety Safety Devices in place: All fall risk precautions in place, call light within reach, left in chair, gait belt, and no alarms engaged upon entry Restraints: No Education Education Given To: patient Education Provided: PT Role, Home Exercise Program, and Transfer Training Education Method: Verbal, Demonstration, and Printed Information Barriers to Learning: None Education Outcome: Verbalized Understanding and Demonstrated Understanding Goals Patient Stated Goal: To return home with assistance. Therapy Time Individual Co-treatment Time In 934 Time Out 1000 Minutes 25 Treatment: 8 min GT PRISCILA Ramon Patient's Physical Therapy Plan of Care supervision is transferred to a [facility] Services Physical Therapist. Goals and/or treatment plan was established in collaboration with patient/family/other representatives. documented in this [facility]02-08-2024 NotePHYSICAL THERAPY [facility]ly [facility] Initial Evaluation Name/MRN: Violetta Linder ([id number]) Evaluation Date: 08/20/2023 Date of : 1960 Admission Date: 08/19/2023 9:37 AM Age: 63 y.o. [facility] Discharge Recommendation: Home with nursing unit clerk, Home with Home health PT Equipment Needed: Yes Other: bedside commode due to pt needing grab bars to get on/off commode. Assessment IMPRESSION: Pt was admitted for spinal stenosis. Pt s/p microdiscectomy, foraminotomy L3-L4, L4-L5 right and posterior lumbar laminectomy facetectomy foraminotomy and decompression on 08/19. Pt was modified independent with bed mobility, transfers, ambulation, and stair negotiation. Recommend home with aide and home health PT to address balance and strengthening. Diagnosis: s/p microdiscectomy, foraminotomy L3-L4, L4-L5 right and posterior lumbar laminectomy facetectomy foraminotomy and decompression on 08/19 Prognosis: good Performance Deficits /Impairments: Decreased Functional Mobility and Decreased Balance Decision Making: Medium Complexity Subjective Pt was in bed. Pt was agreeable to PT. Pt stated low back pain started at 10/10 when entering room and decreased to 7/10 during ambulation. Pt denied any SOB or dizziness during ambulation. Pt stated she has ambulated independently since surgery. Pain: 7-10/10 low back pain Past Medical History: Past Medical History: Diagnosis Date Arthritis Asthma COPD (chronic obstructive pulmonary disease) ([facility]) Past Surgical History: Past Surgical History: Procedure Laterality Date CARDIAC CATHETERIZATION CARPAL TUNNEL RELEASE Bilateral MINIMALLY INVASIVE FORAMINOTOMY CERVICAL SPINE 08/19/2023 MICRODISCECTOMY, FORAMINOTOMY LUMBAR 3-4, LUMBAR 4-5 RIGHT - Right SPINAL FUSION Admission Diagnosis: Patient Active Problem List Diagnosis Date Noted Spinal stenosis 08/19/2023 Medical Precautions: No active isolations Proper PPE donned/doffed in accordance with facility standards. Fall Risk: [place]is Fall Risk Score: 45 (High Risk) Precautions/Restrictions: Spine Precautions: No Bending, No Lifting, No Twisting Lines/Drains/Airways: PIV Family/Caregiver Present: none Overall Cognitive Status: WFL Overall Orientation Status: Oriented x4 Vision: pt was wearing glasses Hearing: WFL Social/Functional History Patient admitted from home. Lives With: Alone Type of Home: single family home Home Layout: Two Level Home, bed/bath on second level with 14 steps Home Access: Stairs to Enter with Rails (# of stairs: 2) Bathroom Shower/Tub: Toilet: higher height per pt Home Equipment: none Homemaking Responsibilities: Independent Receives Help From: Family (nephew) Active Fabrication Manager: Yes Prior Level of Function ADL Assistance: Independent Ambulation Assistance: Independent Transfer Assistance: Independent Objective Lower Extremity Assessment AROM: bilateral LE WFL PROM: Not assessed this session Strength: at least 3/5 hip, knee, and ankle observed with AROM Bed Mobility: Supine to sit: Modified Independent with log roll technique Transfers Sit to stand: Modified Independent with bilateral UE on bed/chair to assist Stand to sit: Modified Independent with bilateral UE on bed/chair Pt performed 4 repetitions of STS. Pt required mod verbal cueing for transfer technique to avoid bending. Ambulation Ambulation 1 Assistive device(s) used: none Assist level: independent to mod-independent; pt reaching for hallway rail intermittently Distance (ft): 108 Quality of gait: No LOB, reciprocal stepping, narrow VEENA, slow rey Ambulation 2 Assistive device(s) used: none Assist level: Independent, Modified Independent; pt reaching for hallway rail intermittently Distance (ft): 108 Quality of gait: No LOB, reciprocal stepping, narrow VEENA, slow rey Balance: Posture: poor Sitting - Static: Independent Sitting - Dynamic: Modified Independent with L UE on bed Standing - Static: Independent Standing - Dynamic: Independent- Modified Independent with reaching for handrails Stairs Stairs 1 Assistive device(s) used: none Assist level: Modified Independent # of steps: 3 ascended and descended Rails: right Additional factors: non-reciprocal going up, non-reciprocal going down Outcome Measures AM-[facility] How much HELP from another person do you currently need Turning from your back to your side while in a flat bed without using bedrails?: None Moving from lying on your back to sitting on the side of a flat bed without using bedrails?: None Moving to and from a bed to a chair (including a wheelchair)?: None Standing up from a chair using your arms (wheelchair or bedside chair)?: None Walking in a hospital room?: None Stair climbing assessed?: Yes Climbing 3-5 steps with a railing?+: None AM-[facility] Inpatient Mobility Raw Score : 24 AM-[facility] Inpatient Mobility Raw Score (No Stairs) : 20 J[facility]-HLM -HL Score (more content not included)...[facility]02-08-2024 Note* Home Care - [facility] Shelton RN - 08/20/2023 10:46 AM EST Spoke with pt at bedside and pt is agreeable to PT (declined/denied OT needs) at home following discharge. Pt requested [facility] and referral was sent. She stated if they are unable to accept, she'll be happy with first accepting agency. [facility] is unable to staff that area with PTat this time. Pt denied DME needs. [facility]* Home Care - Dina Shelton RN - 08/20/2023 10:46 AM EST Spoke with pt at bedside and pt is agreeable to PT (declined/denied OT needs) at home following discharge. Pt requested [facility] and referral was sent. She stated if they are unable to accept, she'll be happy with first accepting agency. [facility] is unable to staff that area with PTat this time. Pt denied DME needs. [facility]69-[facility]-4496 [facility]* Home Care - Dina Shelton RN - 08/20/2023 9:29 AM EST Urologist Physician following case for Discharge Needs. [facility]laz[facility]v18-62-4945 [facility]* Home Care - Dina Shelton RN - 08/20/2023 9:29 AM EST Urologist Physician following case for Discharge Needs. [facility] [id number] Consult note* Wilver De La Cruz MD - 08/19/2023 8:06 PM EST Associated Order(s): IP CONSULT TO HOSPITALIST Images from the original note were not included. Hospital Medicine Consult Patient - Violetta Linder, Age - 63 y.o. - 1960 Room Number - [id number] Consulting - Agatha Alejo MD Primary Care Physician - BRIAN Sadler Date of Admission - 08/19/2023 9:37 AM Hospital Day - 0 Reason for Consult: Medical Management HISTORY OF PRESENT ILLNESS: Violetta is a 63 y.o. female pmhx below POD #0 Lumbar laminectomy and decompression. Per Orthopedic specialty documentation no intraoperative complication or concern reported. [facility] consulted for Medical Management. Pt Hx significant for COPD. On arrival to , Pt is awake and conversant. Discussed Pt home medication - Pt wished to use her Annalisa MDI in place of this facility's formulary switch Dulera. Order was placed, however Pt realized her family had likely taken her medications at home. Is amenable to use of Dulera until able to get her home medication back. No other issues or concerns reported at present time Past Medical History: Past Medical History: Diagnosis Date Arthritis Asthma COPD (chronic obstructive pulmonary disease) ([facility]) Past Surgical History: Past Surgical History: Procedure Laterality Date CARDIAC CATHETERIZATION CARPAL TUNNEL RELEASE Bilateral MINIMALLY INVASIVE FORAMINOTOMY CERVICAL SPINE 08/19/2023 MICRODISCECTOMY, FORAMINOTOMY LUMBAR 3-4, LUMBAR 4-5 RIGHT - Right SPINAL FUSION Medications: acetaminophen, 1,000 mg, Oral, q6h [START ON 08/20/2023] ceFAZolin, 2 g, IntraVENous, q8h methocarbamol, 750 mg, Oral, 3 times per day lactated Ringer's, 50 mL/hr, Last Rate: 50 mL/hr (08/19/231814) PRN medications: HYDROmorphone OR HYDROmorphone, naloxone, ondansetron ODT OR ondansetron, oxyCODONE OR oxyCODONE Allergies: Amoxicillin, Dicloxacillin, and Ephedrine Social History: Social History Socioeconomic History Marital status: Spouse name: Not on file Number of children: Not on file Years of education: Not on file Highest education level: Not on file Occupational History Not on file Tobacco Use Smoking status: Every Day Packs/day: 0.50 Years: 30.00 Additional pack years: 0.00 Total pack years: 15.00 Types: Cigarettes Passive exposure: Never Smokeless tobacco: Never Tobacco comments: Trying to quit, down to 1-2 cigarettes per day now Vaping Use Vaping Use: Never used Substance and Sexual Activity Alcohol use: Not Currently Drug use: Not Currently Types: Marijuana Comment: used gummies in the past Sexual activity: Not on file Other Topics Concern Not on file Social History Narrative Not on file Social Determinants of Health Financial Resource Strain: Not on file Food Insecurity: Not on file Transportation Needs: Not on file Physical Activity: Not on file Stress: Not on file Social Connections: Not on file Intimate Partner Violence: Not on file Housing Stability: Not on file Family History: No family history on file. REVIEW OF SYSTEMS: 10 point ROS obtained, as per HPI, otherwise NEG Physical Exam: Vitals: BP 113/52 (BP Location: Left arm, Patient Position: Lying) Pulse 57 Temp 37.1 C (98.8 F) (Temporal) Resp 18 Ht 5' 2.99 (1.6 m) Wt 153 lb 3.5 oz (69.5 kg) SpO2 100% BMI 27.15 kg/m BMI Classification: Overweight (BMI 25.0-29.9) Pulse Ox: SpO2 Av.3 % Min: 91 % Max: 100 % Supplemental O2: O2 Flow Rate (L/min): 2 L/min Physical Exam Constitutional: General: She is awake. HENT: Head: Normocephalic and atraumatic. Eyes: General: Vision grossly intact. Gaze aligned appropriately. Extraocular Movements: Extraocular movements intact. Pupils: Pupils are equal, round, and reactive to light. Cardiovascular: Rate and Rhythm: Normal rate and regular rhythm. Pulmonary: Breath sounds: Normal breath sounds. No wheezing, rhonchi or rales. Musculoskeletal: Comments: Post-operative low back discomfort Skin: General: Skin is warm and dry. Neurological: General: No focal deficit present. Mental Status: She is alert and oriented to person, place, and time. Cranial Nerves: Cranial nerves 2-12 are intact. Psychiatric: Behavior: Behavior is cooperative. LABS: No results found for this or any previous visit (from the past 24 hour(s)). Urine Culture: No results found for this or any previous visit. IMAGING: See report Assessment Data: (LOW: 2x CAT1 or independent historian MOD: 3x CAT1 or 1x CAT3 EXTENSIVE: 3x CAT1 and 1x CAT3) Acute, acute on chronic, unstable/uncontrolled chronic problems/diagnoses: S/P Lumbar laminectomy and decompression - Orthopedic surgical specialty managing - PRN analgesia - PT/OT consulted Stable chronic problems affecting care, new non-acute diagnoses: COPD - Use of home Breztri once available - BID Dulera - PRN albuterol - Supplemental O2 as needed to maintain SpO2 >90% Plan As a result of the above findings & factors, the following mgmt was pursued: - am labs, replace lytes prn - PT/OT/CM/SW - delirium precautions: increase activity and limit nighttime disturbances - DVT prophylaxis: SCDs and encourage ambulation Complexity: Chronic illness with mild to moderate exacerbation, progression, or side effect of tx (MOD). Risk: Admission to hospital-level care was considered or occurred (HIGH). Advance Directive: FULL CODE Anticipated Discharge - Date - TBD - Location - TBD Total time spent (which include face to face and non face to face encounters) : 55 minutes Extended Emergency Contact Information Primary Emergency Contact: Shon Cabral Mobile Relation: Nephew Preferred language: [place] [employer] Wheel Borer needed? No Wilver De La Cruz MD Division of Hospitalist Medicine Inpatient Medical Services/[facility] [employer] Phone: [phone] 337-507502-07-2024 Consult note* Wilver De La Cruz MD - 08/19/2023 8:06 PM ESTAssociated Order(s): IP CONSULT TO HOSPITALIST Images from the original note were not included. Hospital Medicine Consult Patient - Violetta Linder, Age - 63 y.o. - 1960 Room Number - [id number] Consulting - Agatha Alejo MD Primary Care Physician [phone] Date of Admission - 08/19/2023 9:37 AM Hospital Day - 0 Reason for Consult: Medical Management HISTORY OF PRESENT ILLNESS: Violetta is a 63 y.o. female pmhx below POD #0 Lumbar laminectomy and decompression. Per Orthopedic specialty documentation no intraoperative complication or concern reported. [facility] consulted for Medical Management. Pt Hx significant for COPD. On arrival to , Pt is awake and conversant. Discussed Pt home medication - Pt wished to use her Annalisa MDI in place of this facility's formulary switch Dulera. Order was placed, however Pt realized her family had likely taken her medications at home. Is amenable to use of Dulera until able to get her home medication back. No other issues or concerns reported at present time Past Medical History: Past Medical History: Diagnosis Date Arthritis Asthma COPD (chronic obstructive pulmonary disease) ([facility]) Past Surgical History: Past Surgical History: Procedure Laterality Date CARDIAC CATHETERIZATION CARPAL TUNNEL RELEASE Bilateral MINIMALLY INVASIVE FORAMINOTOMY CERVICAL SPINE 08/19/2023 MICRODISCECTOMY, FORAMINOTOMY LUMBAR 3-4, LUMBAR 4-5 RIGHT - Right SPINAL FUSION Medications: acetaminophen, 1,000 mg, Oral, q6h [START ON 08/20/2023] ceFAZolin, 2 g, IntraVENous, q8h methocarbamol, 750 mg, Oral, 3 times per day lactated Ringer's, 50 mL/hr, Last Rate: 50 mL/hr (08/19/231814) PRN medications: HYDROmorphone OR HYDROmorphone, naloxone, ondansetron ODT OR ondansetron, oxyCODONE OR oxyCODONE Allergies: Amoxicillin, Dicloxacillin, and Ephedrine Social History: Social History Socioeconomic History Marital status: Spouse name: Not on file Number of children: Not on file Years of education: Not on file Highest education level: Not on file Occupational History Not on file Tobacco Use Smoking status: Every Day Packs/day: 0.50 Years: 30.00 Additional pack years: 0.00 Total pack years: 15.00 Types: Cigarettes Passive exposure: Never Smokeless tobacco: Never Tobacco comments: Trying to quit, down to 1-2 cigarettes per day now Vaping Use Vaping Use: Never used Substance and Sexual Activity Alcohol use: Not Currently Drug use: Not Currently Types: Marijuana Comment: used gummies in the past Sexual activity: Not on file Other Topics Concern Not on file Social History Narrative Not on file Social Determinants of Health Financial Resource Strain: Not on file Food Insecurity: Not on file Transportation Needs: Not on file Physical Activity: Not on file Stress: Not on file Social Connections: Not on file Intimate Partner Violence: Not on file Housing Stability: Not on file Family History: No family history on file. REVIEW OF SYSTEMS: 10 point ROS obtained, as per HPI, otherwise NEG Physical Exam: Vitals: BP 113/52 (BP Location: Left arm, Patient Position: Lying) Pulse 57 Temp 37.1 C (98.8 F) (Temporal) Resp 18 Ht 5' 2.99 (1.6 m) Wt 153 lb 3.5 oz (69.5 kg) SpO2 100% BMI 27.15 kg/m BMI Classification: Overweight (BMI 25.0-29.9) Pulse Ox: SpO2 Av.3 % Min: 91 % Max: 100 % Supplemental O2: O2 Flow Rate (L/min): 2 L/min Physical Exam Constitutional: General: She is awake. HENT: Head: Normocephalic and atraumatic. Eyes: General: Vision grossly intact. Gaze aligned appropriately. Extraocular Movements: Extraocular movements intact. Pupils: Pupils are equal, round, and reactive to light. Cardiovascular: Rate and Rhythm: Normal rate and regular rhythm. Pulmonary: Breath sounds: Normal breath sounds. No wheezing, rhonchi or rales. Musculoskeletal: Comments: Post-operative low back discomfort Skin: General: Skin is warm and dry. Neurological: General: No focal deficit present. Mental Status: She is alert and oriented to person, place, and time. Cranial Nerves: Cranial nerves 2-12 are intact. Psychiatric: Behavior: Behavior is cooperative. LABS: No results found for this or any previous visit (from the past 24 hour(s)). Urine Culture: No results found for this or any previous visit. IMAGING: See report Assessment Data: (LOW: 2x CAT1 or independent historian MOD: 3x CAT1 or 1x CAT3 EXTENSIVE: 3x CAT1 and 1x CAT3) Acute, acute on chronic, unstable/uncontrolled chronic problems/diagnoses: S/P Lumbar laminectomy and decompression - Orthopedic surgical specialty managing - PRN analgesia - PT/OT consulted Stable chronic problems affecting care, new non-acute diagnoses: COPD - Use of home Breztri once available - BID Dulera - PRN albuterol - Supplemental O2 as needed to maintain SpO2 >90% Plan As a result of the above findings & factors, the following mgmt was pursued: - am labs, replace lytes prn - PT/OT/CM/SW - delirium precautions: increase activity and limit nighttime disturbances - DVT prophylaxis: SCDs and encourage ambulation Complexity: Chronic illness with mild to moderate exacerbation, progression, or side effect of tx (MOD). Risk: Admission to hospital-level care was considered or occurred (HIGH). Advance Directive: FULL CODE Anticipated Discharge - Date - TBD - Location - TBD Total time spent (which include face to face and non face to face encounters) : 55 minutes Extended Emergency Contact Information Primary Emergency Contact: MishaShon Mobile Relation: Nephew Preferred language: [place] [employer] Wheel Borer needed? No Wilver De La Cruz MD Division of Hospitalist Medicine Inpatient Medical Services/[facility] documented in this [facility]02-07-2024 Plan of care note* Care Plan - Kathleen Gee RN - 08/19/2023 6:47 PM EST The patient is Moderately Stable - Low risk of patient condition declining or worsening The patient's goals for the shift include pain control The clinical goals for the shift include pain control Over the shift, the patient did not make progress toward the following goals. Barriers to progression include . Recommendations to address these barriers include . [id number] NoteDischarge Summary Violetta Linder : 1960 ADMIT DATE: 08/19/2023 DISCHARGE DATE: 08/20/2023 PRIMARY CARE PHYSICIAN: Alberto Tong VISIT STATUS: Observation CODE STATUS: No Order DISCHARGE DIAGNOSES: Active Problems: There are no active Hospital Problems. HOSPITAL COURSE: Patient presented 08/19/2023 for outpatient surgery. Microdiscectomy, foraminotomy, lumbar 3-4, lumbar 4-5 right, posterior lumbar laminectomy facetectomy, foraminotomy, and decompression performed. Patient tolerated the procedure well. SIGNIFICANT DIAGNOSTIC STUDIES: None CONSULTANTS: Internal Medicine RECOMMENDED NEXT STEPS: Follow up with Dr. Alejo in two weeks DISCHARGE MEDICATIONS: Medication List ASK your doctor about these medications albuterol 108 (90 Base) MCG/ACT inhaler Breztri Aerosphere 160-9-4.8 MCG/ACT aerosol Generic drug: Xphvjmd-Obrxckndzqe-Ssnhralgxf D3-1000 PO Diclofenac Sodium 1 % gel Commonly known as: Voltaren varenicline 1 MG tablet Commonly known as: Chantix DIET: No diet orders on file ACTIVITY: No restriction. COMPLEXITY OF FOLLOW UP: [x] Moderate Complexity: follow up within 7-14 calendar days (30427) [] Severe Complexity: follow up within 7 calendar days (28671) FOLLOW UP TESTING, PENDING RESULTS OR REFERRALS AT TRANSITIONAL CARE VISIT: [] Yes [x] No PENDING STUDIES: None DISPOSITION: Home FACILITY/HOME CARE AGENCY NAME: N/a Follow up with Agatha Alejo MD [address] [facility] [id number] Schedule an appointment as soon as possible for a visit in 2 week(s) For 2 week post surgery appointment INSTRUCTIONS TO MA/SW: Please call patient on day after discharge (must document patient contacted within 2 business days of discharge). FOLLOW UP QUESTIONS FOR MA/SW: 1. Did you get medications filled and taking them as instructed from discharge? 2. Are you following your discharge instructions from your hospital stay? 3. Please confirm patient is scheduled for a follow up appointment within the above time frame. DISCHARGE TIME: 08/20/2023 14:51pm SIGNED: Candelario Kaminski MD 08/19/2023, 2:11 [facility]02-07-2024 Note* Perioperative Nursing Note - Renae Lerner RN - 08/19/2023 4:00 PM EST Assisted pt to turn onto left side [facility]02-07-2024 Note* Perioperative Nursing Note - Renae Lerner RN - 08/19/2023 4:00 PM EST Assisted pt to turn onto left side [facility]02-07-2024 NotePatient: Violetta Linder Procedure Summary Date: 08/19/23 Room / Location: [address] Operating Room Anesthesia Start: 1224 Anesthesia Stop: 1355 Procedures: MICRODISCECTOMY, FORAMINOTOMY LUMBAR 3-4, LUMBAR 4-5 RIGHT (Right: Spine Lumbar) POSTERIOR LUMBAR LAMINECTOMY FACETECTOMY FORAMINOTOMY AND DECOMPRESSION (Right: Spine Lumbar) Diagnosis: Spinal stenosis of lumbar region (Spinal stenosis of lumbar region [M48.061]) Surgeons: Agatha Alejo MD Responsible Provider: Jaison Bell MD Anesthesia Type: general ASA Status: 3 Anesthesia Type: general Vitals Value Taken Time BP 133/79 08/19/23 1357 Temp 36.1 ?C (97 ?F) 08/19/23 1357 Pulse 81 08/19/23 1358 Resp 20 08/19/23 1357 SpO2 99 % 08/19/23 1358 Vitals shown include unfiled device data. Anesthesia Post Evaluation Patient location during evaluation: PACU Patient participation: complete - patient participated Level of consciousness: sleepy but conscious Pain management: satisfactory to patient Airway patency: patent Dental Injury: no Cardiovascular status: acceptable, blood pressure returned to baseline and hemodynamically stable Respiratory status: acceptable and spontaneous ventilation Hydration status: euvolemic Nausea/Vomiting: controlled No notable events documented. Patient can be discharged once all PACU criteria has been met.[facility] [id number] NotePatient: Violetta Linder Procedure Summary Date: 08/19/23 Room / Location: [address] Operating Room Anesthesia Start: 1224 Anesthesia Stop: 1355 Procedures: MICRODISCECTOMY, FORAMINOTOMY LUMBAR 3-4, LUMBAR 4-5 RIGHT (Right: Spine Lumbar) POSTERIOR LUMBAR LAMINECTOMY FACETECTOMY FORAMINOTOMY AND DECOMPRESSION (Right: Spine Lumbar) Diagnosis: Spinal stenosis of lumbar region (Spinal stenosis of lumbar region [M48.061]) Surgeons: Agatha Alejo MD Responsible Provider: Jaison Bell MD Anesthesia Type: general ASA Status: 3 Anesthesia Type: general Vitals Value Taken Time BP 133/79 08/19/23 1357 Temp 36.1 ?C (97 ?F) 08/19/23 1357 Pulse 82 08/19/23 1357 Resp 20 08/19/23 1357 SpO2 100 % 08/19/23 1357 Vitals shown include unfiled device data. Anesthesia Post Evaluation Patient location during evaluation: PACU Patient participation: complete - patient participated Level of consciousness: sleepy but conscious Pain score: 0 Pain management: satisfactory to patient Multimodal analgesia pain management approach Airway patency: patent Two or more strategies used to mitigate risk of obstructive sleep apnea Cardiovascular status: acceptable and hemodynamically stable Respiratory status: acceptable, face mask and spontaneous ventilation Hydration status: acceptable No notable events documented. MIPS #430 PONV Patient received an inhalational anesthetic (4554F) Patient exhibits three or more risk factors for PONV (4556F) Patient received at [facility] 2 prophylactic Rx PONV anti-emtic agents of different classes preop and/or intraop (G9775) MIPS # 424 Perioperative Temperature Management Anesthesia time was 60 minutes or longer (4255F) Anesthesai administered was General (inhalational or TIVA) or Neuraxial block (X0424) At least one body temperature greater than 95.8F/35.5C achieved within the 30 mins immediately prior to or the 15 minutes immediately following anesthesia end time (G9771) MIPS #477 Multimodal Pain Management Not emergent case Patient was administered multimodal pain management (two or more drugs and/or interventions excluding systemic opioids) in the periopeartive period occurring at some time between 6 hours prior to anesthesia start time until discharged from PACU (G2148) MIPS #404 Anesthesiology Smoking Abstinence The patient is a current smoker (G9642) (e.g. cigarette, cigar, pipe, e-cigarette/vaping/marijuana) The patient underwent an elective surgery or procedure requiring anesthesia (G9643) The patient did not receive preop smoking cessation instructions prior to the day of surgery or procedure by , [facility] oracle manufacturing consultant proxy staff ([id number]) I completed my handoff to the receiving clinician during which we: 1. Identified the patient 2. Identified the responsible provider 3. Reviewed the pertinent medical history 4. Discussed the surgical course 5. Reviewed intra-op anesthesia management and issues during anesthesia 6. Set expectations for post-procedure period 7. Allowed opportunity for questions and acknowledgement of understanding.[facility] [id number] NoteAirway Date/Time: 08/19/2023 12:49 PM Urgency: scheduled General Information and Staff Patient location during procedure: Procedural Resident/SSDS MK 2 ADVANCED OPERATOR: JANI Trinidad CRNA Performed: SSDS MK 2 ADVANCED OPERATOR Performed by: JANI Trinidad CRNA Authorized by: JANI Trinidad CRNA Indications and Patient Condition Indications for airway management: anesthesia and airway protection Sedation level: Asleep Preoxygenated: yes Patient position: sniffing Mask difficulty assessment: 1 - vent by mask Final Airway Details Final airway type: endotracheal airway Successful airway: ETT Cuffed: yes Successful intubation technique: video laryngoscopy Endotracheal tube insertion site: oral Blade: Lorena scope Blade size: #3 ETT size (mm): 7.0 Cormack-Lehane Classification: grade IIa - partial view of glottis Placement verified by: chest auscultation and capnometry Measured from: lips ETT to lips (cm): 20 Number of attempts at approach: [address] [place], [place] [address]593702-07-2024 Note* Perioperative Nursing Note - Renae Lerner RN - 08/19/2023 3:10 PM EST Called for family to come back to see pt per pt request [address]awvi41-67-5394 Note* Perioperative Nursing Note - Renae Lerner RN - 08/19/2023 3:10 PM EST Called for family to come back to see pt per pt request [id number] [facility]* Perioperative Nursing Note - Renae Lerner RN - 08/19/2023 3:02 PM EST Called and provided update to family listed in chart for this visit [facility]kaue87-07-2067 Note* Perioperative Nursing Note - Renae Lerner RN - 08/19/2023 3:02 PM EST Called and provided update to family listed in chart for this visit [id number] Note* Perioperative Nursing Note - Renae Lerner RN - 08/19/2023 2:32 PM EST Assisted pt to reposition in bed [id number] Note* Perioperative Nursing Note - Renae Lerner RN - 08/19/2023 2:32 PM EST Assisted pt to reposition in bed [id number] Hospital Discharge instructions* Discharge Instructions* Candelario Kaminski MD - 08/19/2023 2:10 PM EST Images from the original note were not included. General Orthopedic Discharge Instructions The following instructions have been prepared to help you when you leave the hospital. These guidelines are for the post surgery period. -Activity & Weightbearing: -Weight bearing as tolerated to your left leg. Meaning it is ok to put full weight on your leg for walking and other needs. -Weight bearing as tolerated to your right leg. Meaning it is ok to put full weight on your leg forwalking and other needs. -Ease into normal activity as tolerated. Avoid heavy lifting/pulling/otherwise strenuous activity. -Wound Care and Hygiene: Keep bandaging clean and dry. Ok to change dressings as needed for saturation. Ok to remove bandaging/dressings 5 days after surgery. At this point, if incision is clean and without drainage it is okto go without any bandaging. If it is draining, reapply new bandaging. -Pain Control: -Pain control: Alternate Tylenol (acetaminophen) and Ibuprofen every 4 hours. For example, take Tylenol at 7am and Ibuprofen at 11am. Then take Tylenol at 3pm and Ibuprofen at 7pm. Take narcotic medicine (oxycodone, hydrocodone, vicodin, norco, percocet, tramadol, etc.) for breakthrough pain only. Make sure to double check that narcotic pain medicine does not also contain acetaminophen as exceeding greater than 3000mg a day is unsafe. -Medications: -See medication instructions. Please be sure to read and understand the information provided by your pharmacy. Ask your Pharmacist if you have any questions. -Precautions: call your doctor or return to the emergency department IF: -You experience SEVERE worsening of pain in short period of time and/or significant numbness/weakness in extremities or new loss of bowel or bladder function -You develop signs of infection including but not limited to: increasing pain, redness, swelling, purulent drainage, and/or a fever -Anesthesia Precautions: -Do Not operate any vehicle (automobile, bicycle, motorcycle) or power tools for 24 hours. Do Not drink alcoholic beverages for 24 hours. As precaution to prevent post-operative nausea and vomiting, start your diet with liquids, then progress to light foods. If tolerated, resume normal diet. -Follow up visit: -Follow-up in clinic with Dr. Alejo for a visit 2 weeks after the date of your surgery. The officecontact information is provided in your paperwork. * Discharge Instr - MEGHANA* Dina Shelton RN - 08/20/2023 4:27 PM EST Continuity of Care Form Patient Name: Violetta Linder : 1960 Admit date: 08/19/2023 Discharge date: Code Status Order: No Order Advance Directives: N Admitting Physician: Agatha Alejo MD PCP: EDYTA NICHOLE Discharging Nurse: Discharging Hospital Unit/Room#: H-6126/[id number] A Discharging Unit Phone Number: Emergency Contact: Extended Emergency Contact Information Primary Emergency Contact: Shon Cabral Mobile Relation: Nephew Preferred language: [place] Irish Wheel Borer needed? No Past Surgical History: Past Surgical History: Procedure Laterality Date CARDIAC CATHETERIZATION CARPAL TUNNEL RELEASE Bilateral MINIMALLY INVASIVE FORAMINOTOMY CERVICAL SPINE 08/19/2023 MICRODISCECTOMY, FORAMINOTOMY LUMBAR 3-4, LUMBAR 4-5 RIGHT - Right SPINAL FUSION Immunization History: There is no immunization history on file for this patient. Active Problems: Medical Problems Problem List * (Principal) Spinal stenosis Lumbar radiculopathy Isolation/Infection: No active isolations No active infections Nurse Assessment: Last Vital Signs: BP 104/58 (BP Location: Left arm, Patient Position: Sitting) Pulse 85 Temp 36.7 C (98.1 F) (Temporal) Resp 13 Ht 1.6 m (5' 2.99) Wt 69.5 kg (153 lb 3.5 oz) SpO2 96% BMI 27.15 kg/m Last documented pain score (0-10 scale): Last Weight: Wt Readings from Last 1 Encounters: 08/19/23 69.5 kg (153 lb 3.5 oz) Mental Status: {MEGHANA Patient Mental Status:62651} IV Access: {MEGHANA IV Access:89419} Nursing Mobility/ADLs: Walking {JULIANE ADL:::Independent} Transfer {JULIANE ADL:::Independent} Bathing {JULIANE ADL:::Independent} Dressing {JULIANE ADL:::Independent} Toileting {JULIANE ADL:::Independent} Feeding {JULIANE ADL:::Independent} Manufacturing Maintenance Technician {JULIANE ADL:::Independent} Med Delivery {yes/no:14308} Wound Care Documentation and Therapy: Wound/Incision 08/19/23 Incision Back Lower;Midline (Active) Site Assessment Unable to assess 08/20/23829 Odor None 08/19/232144 Drainage Amount None 08/19/232144 Primary Dressing ABD 08/20/23829 Dressing Status Clean, dry & intact 08/20/23829 Number of days: 1 Elimination: Continence: Bowel: {yes/no:16985} Bladder: {yes/no:80762} Urinary Catheter: {MEGHANA Urinary Catheter:89888} Colostomy/Ileostomy/Ileal Conduit: {YES / NO:78906} Date of Last BM: Intake/Output Summary (Last 24 hours) at 08/20/2023 1627 Last data filed at 08/20/2023 1057 Gross per 24 hour Intake 1735 ml Output -- Net 1735 ml I/O last 3 completed shifts: In: 1500 (21.6 mL/kg) [P.O.:800; I.V.:700 (10.1 mL/kg)] Out: 25 (0.4 mL/kg) [Blood:25] Weight: 69.5 kg Safety Concerns: {MEGHANA Safety Concerns:10998} Impairments/Disabilities: {MEGHANA Impairments/Disabilities:85540} Nutrition Therapy: Current Nutrition Therapy: {MEGHANA Diet List:77756} Routes of Feeding: {routes of feedin} Liquids: {liquid consistency:65562} Daily Fluid Restriction: {daily fluid restriction:55269} Last Modified Barium Swallow with Video (Video Swallowing Test): {done not done:48205} Treatments at the Time of Hospital Discharge: Respiratory Treatments: Oxygen Therapy: {Therapy; copd oxygen:45961} Ventilator: {MEGHANA Ventilator:16710} Rehab Therapies: {GEN THERAPY DISCIPLINE SCAL:7345480} Weight Bearing Status/Restrictions: {POD WEIGHT BEARIN} Other Medical Equipment (for information only, NOT a DME order): {Assistive Devices DME:17581} Other Treatments: Patient's personal belongings (please select all that are sent with patient): {MEGHANA Patient Belongings:59921} RN SIGNATURE: {E-signature:98234} CASE MANAGEMENT/SOCIAL WORK SECTION Inpatient Status Date: Readmission Risk Assessment Score: @READMISSIONRISKDETAILS@ Discharging to Facility/ Agency Home Health Services [facility] Facility (if applicable) Name: Address: Dialysis Schedule: Phone: Fax: Rib Chopper/Car Worker signature: {E-signature:88167} PHYSICIAN SECTION Prognosis: {Rehab Prognosis:85877} Condition at Discharge: {Patient Condition:29784} Rehab Potential (if transferring to Rehab): {Rehab Prognosis:16115} Recommended Labs or Other Treatments After Discharge: Physician Certification: I certify the above information and transfer of Violetta Linder is necessary for the continuing treatment of the diagnosis listed and that she requires {MEGHANA Level of Care:03240} for {greater less than:65831} 30 days. Update Admission H&P: {MEGHANA Changes in H&P:89232} PHYSICIAN SIGNATURE: {E-signature:03676} documented in [facility]01-31-2024 NotePatient: Violetta Linder Procedure Information Date/Time: 08/19/23 1100 Procedures: MICRODISCECTOMY, FORAMINOTOMY LUMBAR 3-4, LUMBAR 4-5 RIGHT (Right: Spine Lumbar) POSTERIOR LUMBAR LAMINECTOMY FACETECTOMY FORAMINOTOMY AND DECOMPRESSION (Right: Spine Lumbar) Location: [address] Operating Room Surgeons: Agatha Alejo MD Past Medical History: Past Medical History: No date: Arthritis No date: Asthma No date: COPD (chronic obstructive pulmonary disease) (HCC) Past Surgical History: Past Surgical History: No date: CARDIAC CATHETERIZATION No date: CARPAL TUNNEL RELEASE; Bilateral No date: SPINAL FUSION Social History: TOBACCO: reports that she has been smoking cigarettes. She has a 15 pack-year smoking history. She has never been exposed to tobacco smoke. She has never used smokeless tobacco. ETOH: reports that she does not currently use alcohol. Social History Substance and Sexual Activity Drug Use Not Currently ? Types: Marijuana Comment: used gummies in the past Family History: No family history on file. Screening: Postmenopausal Clinical information reviewed: Tobacco Allergies Meds Med Hx Surg Hx OB Status Physical Exam Airway Mallampati: III TM distance: >3 FB Neck ROM: full Mouth Open: normalendotracheal tube not in place Cardiovascular Dental dentition normal Pulmonary Abdominal Other findings: Cervical fusion Anesthesia Plan patient is NPO appropriate Any family history or previous problems with anesthesia no ASA 3 general Any family history or previous problems with anesthesia no(Per FOREM[employer]LE [employer]ING [employer] ERECTION H&H pending - completed prior to PAT at [facility] ) The patient is a current smoker. Patient was previously instructed to abstain from smoking on day of procedure. Patient did not smoke on day of procedure. Anesthetic plan and risks discussed with patient and sibling. ERAS Type Short ERAS JULES Screening STOP-Bang Total Score: 1 Labs: No results found for: WBC, HGB, HCT, MCV, PLT No results found for: NA, K, CL, CO2, BUN, CREATININE, GLUCOSE, CALCIUM, PROT, BILIRUBINFL, ALKPHOS, AST, ALT, EGFR, GLOB Pain Score: 5 - Moderate pain No echocardiogram results found for the past 14 days No results found for this or any previous visit. ECG 08/12/2023 IMPRESSION: Sinus rhythm Right axis deviation Consider anteroseptal [facility]01-31-2024 NoteComprehensive Pre Surgical History and Physical ? Name: Violetta Linder : 1960 (Age-63 y.o.) Date of Service: Pt seen/examined on 08/12/2023 Procedure Information Date/Time: 08/19/23 1100 Procedures: MICRODISCECTOMY, FORAMINOTOMY LUMBAR 3-4, LUMBAR 4-5 RIGHT (Right: Spine Lumbar) POSTERIOR LUMBAR LAMINECTOMY FACETECTOMY FORAMINOTOMY AND DECOMPRESSION (Right: Spine Lumbar) Location: [facility] OR [address] [place] [address] Operating Room Surgeons: Agatha Alejo MD Chief Complaint: Lumbar pain with sciatica for one year per patient -arthritis and cervical fusion history ASSESSMENT/PLAN: Patient is considered intermediate risk for this intermediate level 1 risk procedure/surgery () with no reducible risk factors. Based on the above evaluation, the benefits of the planned procedure likely exceed the risks. The patient is medically optimized to proceed with the planned procedure without any further cardiopulmonary testing. 1) Diagnosis: Spinal stenosis of lumbar region [M48.061] - Managed per surgery 2) Current Smoker - Encouraged nicotine cessation. - Per anesthesia protocol to not use nicotine products within 24 hours prior to surgery. - Patient aware surgery could be cancelled if using within 24 hours. Patient verbalized understanding. - 1 pack(s) a day for about 30 years - EKG as below - H&H pending - completed prior to PAT at [facility] 3) Sinus allergies -not currently 4) Depression/Anxiety - feels controlled on medication - No medications - Patient may benefit from antianxiety medication DOS 5)COPD/ Asthma - Follows with Dr Leighton Ruiz for pulmonology - Denies recent hospitalization - Per patient, feels at baseline - Lungs CTA. No obvious distress on exam. - Continue inhalers/nebulizers day of surgery. - Oxygen therapy - No Visit Type: Pre-Admission Testing Visit Labs Ordered: YES - PER PAT PROTOCOL Sleep Referral Ordered: NO - NEGATIVE SCREEN PER SLEEP REFERRAL PROTOCOL Total time spent (which include face to face and non face to face encounters) : 30 minutes Toxic drug monitoring/narrow therapeutic index drug monitoring : # Drug name : na # Route administered : na # Method of monitoring : na PAT Protocol referenced includes: 1. Anesthesia Lab Protocol Orders 2. Perioperative Cardiovascular Risk Assessment 3. Anesthesia Assessment 4. Pain Assessment and Acute Pain Service Consult (if appropriate) 5. Medical Clearance/Consult from Internal Medicine (IMS) 6. Shower/Wash Order (for designated surgeries) 7. JULES Screen and Sleep Clinic Referral (if appropriate) History Of Present Illness: 63 y.o. female who we are asked to see/evaluate by [facility] PAT 03 for pre-operative evaluation prior to . MICRODISCECTOMY, FORAMINOTOMY LUMBAR 3-4, LUMBAR 4-5 RIGHT (Right: Spine Lumbar) [42034 CPT(R)] POSTERIOR LUMBAR LAMINECTOMY FACETECTOMY FORAMINOTOMY AND DECOMPRESSION (Right: Spine Lumbar) [59077 CPT(R)] Anesthesia type: General No notes from surgeons office Dr Alejo in [facility] or care everywhere. ? Denies history of [place], CAD, CHF, TIA, CVA, DVT, PE Past Medical History: Past Medical History: No date: Arthritis No date: Asthma No date: COPD (chronic obstructive pulmonary disease) ([facility]) Past Surgical History: Past Surgical History: No date: CARDIAC CATHETERIZATION No date: CARPAL TUNNEL RELEASE; Bilateral No date: SPINAL FUSION Medications Prior to Admission: Prior to Admission medications Not on File CHRONIC NARCOTIC USE: No Allergies: Amoxicillin, Dicloxacillin, and Ephedrine If patient has opioid allergy, is it okay to take Acetaminophen: Yes Social History: TOBACCO: reports that she has been smoking cigarettes. She has a 15 pack-year smoking history. She has never been exposed to tobacco smoke. She has never used smokeless tobacco. ETOH: reports that she does not currently use alcohol. Social History Substance and Sexual Activity Drug Use Not Currently Types: Marijuana Comment: used gummies in the past Family History: No family history on file. REVIEW OF SYSTEMS: Review of Systems Constitutional: Negative for activity change. HENT: Negative for dental problem and sore throat. Eyes: Negative for visual disturbance. Respiratory: Negative. Negative for chest tightness and shortness of breath. Cardiovascular: Negative. Gastrointestinal: Negative. Negative for abdominal pain. Genitourinary: Negative. Negative for difficulty urinating and flank pain. Musculoskeletal: Positive for back pain. Skin: Negative for rash and wound. Neurological: Negative for dizziness and weakness. Psychiatric/Behavioral: Negative for behavioral problems. All other systems reviewed and are negative. Physical Exam: Physical Exam Vitals and nursing note reviewed. Constitutional: Appearance: She is obese. HENT: (more content not included)...[facility] [id number] Note Comprehensive Pre Surgical History and Physical ? Name: Violetta Linder : 1960 (Age-63 y.o.) Date of Service: Pt seen/examined on 08/12/2023 Procedure Information Date/Time: 08/19/23 1100 Procedures: MICRODISCECTOMY, FORAMINOTOMY LUMBAR 3-4, LUMBAR 4-5 RIGHT (Right: Spine Lumbar) POSTERIOR LUMBAR LAMINECTOMY FACETECTOMY FORAMINOTOMY AND DECOMPRESSION (Right: Spine Lumbar) Location: [address] Operating Room Surgeons: Agatha Alejo MD Chief Complaint: Lumbar pain with sciatica for one year per patient -arthritis and cervical fusion history ASSESSMENT/PLAN: Patient is considered intermediate risk for this intermediate level 1 risk procedure/surgery () with no reducible risk factors. Based on the above evaluation, the benefits of the planned procedure likely exceed the risks. The patient is medically optimized to proceed with the planned procedure without any further cardiopulmonary testing. 1) Diagnosis: Spinal stenosis of lumbar region [M48.061] - Managed per surgery 2) Current Smoker - Encouraged nicotine cessation. - Per anesthesia protocol to not use nicotine products within 24 hours prior to surgery. - Patient aware surgery could be cancelled if using within 24 hours. Patient verbalized understanding. - 1 pack(s) a day for about 30 years - EKG as below - H&H pending - completed prior to PAT at [facility] 3) Sinus allergies -not currently 4) Depression/Anxiety - feels controlled on medication - No medications - Patient may benefit from antianxiety medication DOS 5)COPD/ Asthma - Follows with Dr Leighton Ruiz for pulmonology - Denies recent hospitalization - Per patient, feels at baseline - Lungs CTA. No obvious distress on exam. - Continue inhalers/nebulizers day of surgery. - Oxygen therapy - No Visit Type: Pre-Admission Testing Visit Labs Ordered: YES - PER PAT PROTOCOL Sleep Referral Ordered: NO - NEGATIVE SCREEN PER SLEEP REFERRAL PROTOCOL Total time spent (which include face to face and non face to face encounters) : 30 minutes Toxic drug monitoring/narrow therapeutic index drug monitoring : # Drug name : na # Route administered : na # Method of monitoring : na PAT Protocol referenced includes: 1. Anesthesia Lab Protocol Orders 2. Perioperative Cardiovascular Risk Assessment 3. Anesthesia Assessment 4. Pain Assessment and Acute Pain Service Consult (if appropriate) 5. Medical Clearance/Consult from Internal Medicine (IMS) 6. Shower/Wash Order (for designated surgeries) 7. JULES Screen and Sleep Clinic Referral (if appropriate) History Of Present Illness: 63 y.o. female who we are asked to see/evaluate by [place] [id number] for pre-operative evaluation prior to . MICRODISCECTOMY, FORAMINOTOMY LUMBAR 3-4, LUMBAR 4-5 RIGHT (Right: Spine Lumbar) [84863 CPT(R)] POSTERIOR LUMBAR LAMINECTOMY FACETECTOMY FORAMINOTOMY AND DECOMPRESSION (Right: Spine Lumbar) [55887 CPT(R)] Anesthesia type: General No notes from surgeons office Dr Alejo in [facility] or care everywhere. ? Denies history of [place], CAD, CHF, TIA, CVA, DVT, PE Past Medical History: Past Medical History: No date: Arthritis No date: Asthma No date: COPD (chronic obstructive pulmonary disease) ([facility]) Past Surgical History: Past Surgical History: No date: CARDIAC CATHETERIZATION No date: CARPAL TUNNEL RELEASE; Bilateral No date: SPINAL FUSION Medications Prior to Admission: Prior to Admission medications Not on File CHRONIC NARCOTIC USE: No Allergies: Amoxicillin, Dicloxacillin, and Ephedrine If patient has opioid allergy, is it okay to take Acetaminophen: Yes Social History: TOBACCO: reports that she has been smoking cigarettes. She has a 15 pack-year smoking history. She has never been exposed to tobacco smoke. She has never used smokeless tobacco. ETOH: reports that she does not currently use alcohol. Social History Substance and Sexual Activity Drug Use Not Currently Types: Marijuana Comment: used gummies in the past Family History: No family history on file. REVIEW OF SYSTEMS: Review of Systems Constitutional: Negative for activity change. HENT: Negative for dental problem and sore throat. Eyes: Negative for visual disturbance. Respiratory: Negative. Negative for chest tightness and shortness of breath. Cardiovascular: Negative. Gastrointestinal: Negative. Negative for abdominal pain. Genitourinary: Negative. Negative for difficulty urinating and flank pain. Musculoskeletal: Positive for back pain. Skin: Negative for rash and wound. Neurological: Negative for dizziness and weakness. Psychiatric/Behavioral: Negative for behavioral problems. All other systems reviewed and are negative. Physical Exam: Physical Exam Vitals and nursing note reviewed. Constitutional: Appearance: She is obese. HENT: (more content not included)...[facility]01-31-2024 History and physical note* Mariam Wagoner, JANI - PATTERN GRADER SUPERVISOR - 08/12/2023 1:30 PM EST Images from the original note were not included. Comprehensive Pre Surgical History and Physical ? Name: Violetta Linder : 1960 (Age-63 y.o.) Date of Service: Pt seen/examined on 08/12/2023 Procedure Information Date/Time: 08/19/23 1100 Procedures: MICRODISCECTOMY, FORAMINOTOMY LUMBAR 3-4, LUMBAR 4-5 RIGHT (Right: Spine Lumbar) POSTERIOR LUMBAR LAMINECTOMY FACETECTOMY FORAMINOTOMY AND DECOMPRESSION (Right: Spine Lumbar) Location: [address] Operating Room Surgeons: Agatha Alejo MD Chief Complaint: Lumbar pain with sciatica for one year per patient -arthritis and cervical fusion history ASSESSMENT/PLAN: Patient is considered intermediate risk for this intermediate level 1 risk procedure/surgery () with no reducible risk factors. Based on the above evaluation, the benefits of the planned procedure likely exceed the risks. The patient is medically optimized to proceed with the planned procedure without any further cardiopulmonary testing. 1) Diagnosis: Spinal stenosis of lumbar region [M48.061] - Managed per surgery 2) Current Smoker - Encouraged nicotine cessation. - Per anesthesia protocol to not use nicotine products within 24 hours prior to surgery. - Patient aware surgery could be cancelled if using within 24 hours. Patient verbalized understanding. - 1 pack(s) a day for about 30 years - EKG as below - H&H pending - completed prior to PAT at [facility] 3) Sinus allergies -not currently 4) Depression/Anxiety - feels controlled on medication - No medications - Patient may benefit from antianxiety medication DOS 5)COPD/ Asthma - Follows with Dr Leighton Ruiz for pulmonology - Denies recent hospitalization - Per patient, feels at baseline - Lungs CTA. No obvious distress on exam. - Continue inhalers/nebulizers day of surgery. - Oxygen therapy - No Visit Type: Pre-Admission Testing Visit Labs Ordered: YES - PER PAT PROTOCOL Sleep Referral Ordered: NO - NEGATIVE SCREEN PER SLEEP REFERRAL PROTOCOL Total time spent (which include face to face and non face to face encounters) : 30 minutes Toxic drug monitoring/narrow therapeutic index drug monitoring : # Drug name : na # Route administered : na # Method of monitoring : na PAT Protocol referenced includes: 1. Anesthesia Lab Protocol Orders 2. Perioperative Cardiovascular Risk Assessment 3. Anesthesia Assessment 4. Pain Assessment and Acute Pain Service Consult (if appropriate) 5. Medical Clearance/Consult from Internal Medicine (IMS) 6. Shower/Wash Order (for designated surgeries) 7. JULES Screen and Sleep Clinic Referral (if appropriate) History Of Present Illness: 63 y.o. female who we are asked to see/evaluate by [facility] 03 for pre-operative evaluation prior to. MICRODISCECTOMY, FORAMINOTOMY LUMBAR 3-4, LUMBAR 4-5 RIGHT (Right: Spine Lumbar) [24547 CPT(R)] POSTERIOR LUMBAR LAMINECTOMY FACETECTOMY FORAMINOTOMY AND DECOMPRESSION (Right: Spine Lumbar) [47207 CPT(R)] Anesthesia type: General No notes from surgeons office Dr Alejo in [facility] or care everywhere. ? Denies history of [place], CAD, CHF, TIA, CVA, DVT, PE Past Medical History: Past Medical History: No date: Arthritis No date: Asthma No date: COPD (chronic obstructive pulmonary disease) (HCC) Past Surgical History: Past Surgical History: No date: CARDIAC CATHETERIZATION No date: CARPAL TUNNEL RELEASE; Bilateral No date: SPINAL FUSION Medications Prior to Admission: Prior to Admission medications Not on File CHRONIC NARCOTIC USE: No Allergies: Amoxicillin, Dicloxacillin, and Ephedrine If patient has opioid allergy, is it okay to take Acetaminophen: Yes Social History: TOBACCO: reports that she has been smoking cigarettes. She has a 15 pack-year smoking history. She has never been exposed to tobacco smoke. She has never used smokeless tobacco. ETOH: reports that she does not currently use alcohol. Social History Substance and Sexual Activity Drug Use Not Currently Types: Marijuana Comment: used gummies in the past Family History: No family history on file. REVIEW OF SYSTEMS: Review of Systems Constitutional: Negative for activity change. HENT: Negative for dental problem and sore throat. Eyes: Negative for visual disturbance. Respiratory: Negative. Negative for chest tightness and shortness of breath. Cardiovascular: Negative. Gastrointestinal: Negative. Negative for abdominal pain. Genitourinary: Negative. Negative for difficulty urinating and flank pain. Musculoskeletal: Positive for back pain. Skin: Negative for rash and wound. Neurological: Negative for dizziness and weakness. Psychiatric/Behavioral: Negative for behavioral problems. All other systems reviewed and are negative. Physical Exam: Physical Exam Vitals and nursing note reviewed. Constitutional: Appearance: She is obese. HENT: Head: Normocephalic. Nose: Nose normal. Mouth/Throat: Mouth: Mucous membranes are moist. Eyes: Pupils: Pupils are equal, round, and reactive to light. Cardiovascular: Rate and Rhythm: Normal rate and regular rhythm. Pulmonary: Effort: Pulmonary effort is normal. Breath sounds: Normal breath sounds. Abdominal: General: Bowel sounds are normal. There is no distension. Tenderness: There is no abdominal tenderness. Musculoskeletal: General: Normal range of motion. Cervical back: Normal. Thoracic back: Normal. Lumbar back: Tenderness present. Skin: General: Skin is warm. Capillary Refill: Capillary refill takes less than 2 seconds. Neurological: General: No focal deficit present. Mental Status: She is alert. Psychiatric: Mood and Affect: Mood normal. Vitals: Vitals Value Taken Time BP 118/70 08/12/23 1317 Temp 36.1 C (96.9 F) 08/12/23 1317 Pulse 80 08/12/23 1317 Resp 18 08/12/23 1317 SpO2 96 % 08/12/23 1317 BP Readings from Last 3 Encounters: 08/12/23 118/70 Labs: No results found for: WBC, HGB, HCT, MCV, PLT No results found for: NA, K, CL, CO2, BUN, CREATININE, GLUCOSE, CALCIUM, PROT, BILIRUBINFL, ALKPHOS, AST, ALT, EGFR, GLOB Ted's Simple Cardiac Risk Index: TED'S SIMPLE CARDIAC RISK SCORE: 0 Interpretation: 0 Points Class I 0.5% 1 Point Class II 1.3% 2 Points Class III 3.6% 3+ Points Class IV 9.1% PAT Pain Score: Pain Score: 5 - Moderate pain Postop Pain Management Plan (Pain consult ordered?): PACU PAIN CONSULT ORDERED ? EK08/12/2023 Encounter Date: 08/12/23 ECG 12 lead Result Value Heart Rate 69 QRSD Interval 92 QT Interval 397 QTC Interval 424 P [place] 86 QRS [place] 99 T Wave [place] 73 [place] Interval 130 Impression Sinus rhythm Right axis deviation Consider anteroseptal infarct ECHO and EF:None on file No components found for: LVEF, LVEFMODE METS >4 Electronically signed by: JANI Mitchell CNP Date: 08/12/2023 at 2:09 PM [employer] Work Phone: 1(875) 654-778901-31-2024 History and physical note* JANI Mitchell CNP - 08/12/2023 1:30 PM EST Images from the original note were not included. Comprehensive Pre Surgical History and Physical ? Name: Violetta Linder : 1960 (Age-63 y.o.) Date of Service: Pt seen/examined on 08/12/2023 Procedure Information Date/Time: 08/19/23 1100 Procedures: MICRODISCECTOMY, FORAMINOTOMY LUMBAR 3-4, LUMBAR 4-5 RIGHT (Right: Spine Lumbar) POSTERIOR LUMBAR LAMINECTOMY FACETECTOMY FORAMINOTOMY AND DECOMPRESSION (Right: Spine Lumbar) Location: [facility] OR [address] [place] [address] Operating Room Surgeons: Agatha Alejo MD Chief Complaint: Lumbar pain with sciatica for one year per patient -arthritis and cervical fusion history ASSESSMENT/PLAN: Patient is considered intermediate risk for this intermediate level 1 risk procedure/surgery () with no reducible risk factors. Based on the above evaluation, the benefits of the planned procedure likely exceed the risks. The patient is medically optimized to proceed with the planned procedure without any further cardiopulmonary testing. 1) Diagnosis: Spinal stenosis of lumbar region [M48.061] - Managed per surgery 2) Current Smoker - Encouraged nicotine cessation. - Per anesthesia protocol to not use nicotine products within 24 hours prior to surgery. - Patient aware surgery could be cancelled if using within 24 hours. Patient verbalized understanding. - 1 pack(s) a day for about 30 years - EKG as below - H&H pending - completed prior to PAT at [facility] 3) Sinus allergies -not currently 4) Depression/Anxiety - feels controlled on medication - No medications - Patient may benefit from antianxiety medication DOS 5)COPD/ Asthma - Follows with Dr Leighton Ruiz for pulmonology - Denies recent hospitalization - Per patient, feels at baseline - Lungs CTA. No obvious distress on exam. - Continue inhalers/nebulizers day of surgery. - Oxygen therapy - No Visit Type: Pre-Admission Testing Visit Labs Ordered: YES - PER PAT PROTOCOL Sleep Referral Ordered: NO - NEGATIVE SCREEN PER SLEEP REFERRAL PROTOCOL Total time spent (which include face to face and non face to face encounters) : 30 minutes Toxic drug monitoring/narrow therapeutic index drug monitoring : # Drug name : na # Route administered : na # Method of monitoring : na PAT Protocol referenced includes: 1. Anesthesia Lab Protocol Orders 2. Perioperative Cardiovascular Risk Assessment 3. Anesthesia Assessment 4. Pain Assessment and Acute Pain Service Consult (if appropriate) 5. Medical Clearance/Consult from Internal Medicine (IMS) 6. Shower/Wash Order (for designated surgeries) 7. JULES Screen and Sleep Clinic Referral (if appropriate) History Of Present Illness: 63 y.o. female who we are asked to see/evaluate by [facility] PAT 03 for pre-operative evaluation prior to. MICRODISCECTOMY, FORAMINOTOMY LUMBAR 3-4, LUMBAR 4-5 RIGHT (Right: Spine Lumbar) [62217 CPT(R)] POSTERIOR LUMBAR LAMINECTOMY FACETECTOMY FORAMINOTOMY AND DECOMPRESSION (Right: Spine Lumbar) [83663 CPT(R)] Anesthesia type: General No notes from surgeons office Dr Alejo in [facility] or care everywhere. ? Denies history of [place], CAD, CHF, TIA, CVA, DVT, PE Past Medical History: Past Medical History: No date: Arthritis No date: Asthma No date: COPD (chronic obstructive pulmonary disease) (HCC) Past Surgical History: Past Surgical History: No date: CARDIAC CATHETERIZATION No date: CARPAL TUNNEL RELEASE; Bilateral No date: SPINAL FUSION Medications Prior to Admission: Prior to Admission medications Not on File CHRONIC NARCOTIC USE: No Allergies: Amoxicillin, Dicloxacillin, and Ephedrine If patient has opioid allergy, is it okay to take Acetaminophen: Yes Social History: TOBACCO: reports that she has been smoking cigarettes. She has a 15 pack-year smoking history. She has never been exposed to tobacco smoke. She has never used smokeless tobacco. ETOH: reports that she does not currently use alcohol. Social History Substance and Sexual Activity Drug Use Not Currently Types: Marijuana Comment: used gummies in the past Family History: No family history on file. REVIEW OF SYSTEMS: Review of Systems Constitutional: Negative for activity change. HENT: Negative for dental problem and sore throat. Eyes: Negative for visual disturbance. Respiratory: Negative. Negative for chest tightness and shortness of breath. Cardiovascular: Negative. Gastrointestinal: Negative. Negative for abdominal pain. Genitourinary: Negative. Negative for difficulty urinating and flank pain. Musculoskeletal: Positive for back pain. Skin: Negative for rash and wound. Neurological: Negative for dizziness and weakness. Psychiatric/Behavioral: Negative for behavioral problems. All other systems reviewed and are negative. Physical Exam: Physical Exam Vitals and nursing note reviewed. Constitutional: Appearance: She is obese. HENT: Head: Normocephalic. Nose: Nose normal. Mouth/Throat: Mouth: Mucous membranes are moist. Eyes: Pupils: Pupils are equal, round, and reactive to light. Cardiovascular: Rate and Rhythm: Normal rate and regular rhythm. Pulmonary: Effort: Pulmonary effort is normal. Breath sounds: Normal breath sounds. Abdominal: General: Bowel sounds are normal. There is no distension. Tenderness: There is no abdominal tenderness. Musculoskeletal: General: Normal range of motion. Cervical back: Normal. Thoracic back: Normal. Lumbar back: Tenderness present. Skin: General: Skin is warm. Capillary Refill: Capillary refill takes less than 2 seconds. Neurological: General: No focal deficit present. Mental Status: She is alert. Psychiatric: Mood and Affect: Mood normal. Vitals: Vitals Value Taken Time BP 118/70 08/12/23 1317 Temp 36.1 C (96.9 F) 08/12/23 1317 Pulse 80 08/12/23 1317 Resp 18 08/12/23 1317 SpO2 96 % 08/12/23 1317 BP Readings from Last 3 Encounters: 08/12/23 118/70 Labs: No results found for: WBC, HGB, HCT, MCV, PLT No results found for: NA, K, CL, CO2, BUN, CREATININE, GLUCOSE, CALCIUM, PROT, BILIRUBINFL, ALKPHOS, AST, ALT, EGFR, GLOB Ted's Simple Cardiac Risk Index: TED'S SIMPLE CARDIAC RISK SCORE: 0 Interpretation: 0 Points Class I 0.5% 1 Point Class II 1.3% 2 Points Class III 3.6% 3+ Points Class IV 9.1% PAT Pain Score: Pain Score: 5 - Moderate pain Postop Pain Management Plan (Pain consult ordered?): PACU PAIN CONSULT ORDERED ? EK08/12/2023 Encounter Date: 08/12/23 ECG 12 lead Result Value Heart Rate 69 QRSD Interval 92 QT Interval 397 QTC Interval 424 P [place] 86 QRS [place] 99 T Wave [place] 73 [place] Interval 130 Impression Sinus rhythm Right axis deviation Consider anteroseptal infarct ECHO and EF:None on file No components found for: LVEF, LVEFMODE METS >4 Electronically signed by: Mariam Wagoner APRN - PATTERN GRADER SUPERVISOR Date: 08/12/2023 at 2:09 PM documented in this [facility] NAME ACCOUNT SEX AGE ADMIT DISCHARGE PT MED. RECORD# NUMBER DATE DATE TYPE NIYA [id number] F 63 03/30/23 03/31/23 2 VIOLETTA [id number] ROOM: 302MO DATE OF : 1960 ATTENDING PHYSICIAN: Stacy Vale ADMITTING DIAGNOSIS: Chronic obstructive pulmonary disease exacerbation. FINAL DIAGNOSES: 1. Chronic obstructive pulmonary disease exacerbation, treated and improved. 2. Chronic tobaccoism. 3. Lower respiratory tract infection with bronchitis contributing factor to her chronic obstructive pulmonary disease exacerbation. HOSPITAL COURSE: This is a 63-year-old lady with COPD stage III who presented to the emergency room with cough and shortness of breath. No infiltrate on the chest x-ray. She has bilateral wheezing and was very short of breath. She was initiated on treatment with bronchodilator with minimal response, given IV steroids, and admitted for observation. The patient improved fairly rapidly with the bronchodilator and the IV steroids. In the morning, she was feeling better. She was not that much short of breath, and her respiratory rate was around 10 to 12. Her oxygenation remained between 92 and 95. At that point, we decided the patient was fit for discharge. Discharge medications are as mentioned above. MEDICATIONS ON DISCHARGE: The patient was discharged on Ceftin 500 mg twice a day for 5 days, guaifenesin 1200 mg twice a day for 30 days and 1 refill, prednisone 40 mg daily for 7 days. She will resume albuterol sulfate and Breztri Aerosphere as prescribed by Pulmonary. DISCHARGE INSTRUCTIONS/PLAN: Discharge diet is regular. Activity: As tolerated. The patient was instructed extensively about methods to quit smoking cigarettes. Dictated By: Stacy Vale MD 03/31/23 12:42 JOB #: [id number] Transcribed By: am 03/31/23 14:44 Electronically signed by: E-Sign: STACY VALE MD 04/04/23 11:53 Page 1 of 1 NIYA, VIOLETTA Dis[facility] NAME ACCOUNT SEX AGE ADMIT DISCHARGE PT MED. RECORD# NUMBER DATE DATE TYPE NIYA [id number] F 63 03/30/23 03/31/23 2 VIOLETTA [id number] ROOM: 302MO DATE OF : 62 DICTATING PHYSICIAN: Stacy Vale ADMITTING DIAGNOSIS: COPD exacerbation. CHIEF COMPLAINT: Shortness of breath and cough. HISTORY OF PRESENT ILLNESS: This is a 63-year-old lady with a history of COPD who was in her usual state of health. The patient started about 3 weeks ago with her initial symptoms being increasing cough production with yellowish phlegm, and this started to become associated with short episodes of shortness of breath. For 2 to 3 days prior to admission, she started to have generalized wheezes. She tried to use her inhaler more times. She was already seen by pulmonary as an outpatient, and treated with prednisone and antibiotics. Despite that, she got worse and she presented to the emergency room. In the emergency room, the patient was quite tachypneic. Vital signs were otherwise stable. She had bilateral wheezes. Oxygen was borderline fluctuating between [address] scan of the chest did not reveal any abnormalities, and the patient was admitted with COPD exacerbation. She was initiated on treatment with bronchodilators, IV steroids. The patient today when I saw her is feeling much better, and she wants to go home. Her shortness of breath has become under control. Her wheezing is minimal, and she still has a significant cough. The patient still has productive phlegm, brownish according to her. No chest pain. No fever or chills. PAST MEDICAL HISTORY: Remarkable for COPD. She is followed by pulmonary. According to her, she was given stage III based on pulmonary function tests. She is not on oxygen. Her last hospitalization in our hospital was a year ago and 4 months ago. MEDICATIONS: Please refer to the medication reconciliation. ALLERGIES: The patient has no allergies. FAMILY HISTORY: The patient has cancer of the lung in both her mom, sister, and her Page 1 of 3 VIOLETTA LINDER History & Physical VIOLETTA LINDER :1960 dad. Her dad has survived the cancer so far. The patient does follow with routine screening by her typesetter apprentice. SOCIAL HISTORY: The patient continues to smoke. She started smoking around the age of 11 REVIEW OF SYSTEMS: The patient denied fever or chills, night sweats. No headache, blurry vision, earache, or sore throat. She has some postnasal drip, and she has cough productive, shortness of breath, and wheezing. No nausea, vomiting, abdominal pain, diarrhea, or constipation. PHYSICAL EXAMINATION GENERAL APPEARANCE: This is a 63-year-old pleasant lady sitting up in chair fairly comfortable at the time of assessment. VITAL SIGNS: Vital signs has revealed her temperature of 97.4, pulse 83, O2 saturation is 93, and heart rate is 126/64. HEENT: Normocephalic and atraumatic. Pupils are round, equal, and reactive. Normal eye motion. Tongue to midline. NECK: Neck is supple. LUNGS: Revealed a few wheezes in the bases now with good air exchange. The patient was able to perform up to 1700 on her incentive, still saturating between 92 and 95%. ABDOMEN: Soft. No tenderness. EXTREMITIES: Revealed no edema. DIAGNOSTIC DATA: Laboratory data has revealed a white count of 7.4, hemoglobin 12.8. Sodium is 143, potassium 4.3, BUN 10, creatinine 0.61. IMPRESSION: 1. Acute chronic obstructive pulmonary disease exacerbation quite symptomatic at this point. 2. Respiratory tract infection with minimal bronchitis and the likelihood with chronic obstructive pulmonary disease it is a lower respiratory infection. 3. Chronic tobaccoism. PLAN: 1. The patient was admitted for observation. 2. IV steroids. 3. Bronchodilator. Page 2 of 3 VIOLETTA LINDER History & Physical VIOLETTA LINDER :1960 4. Education to quit smoking performed by me for 45 minutes and using alternative ways and quitting smoking completely. I did explain to her that quitting cigarettes in specific or other form of smoke, which delivers tar and heat, are the worst for her chronic obstructive pulmonary disease. A nicotine substitute would be her best option to proceed with pending her quitting. 5. She understood those facts very well. She did receive deep venous thrombosis prophylaxis too, as well as proton-pump inhibitor to prevent gastric stress. Dictated By: Stacy Vale MD 03/31/23 12:39 JOB #: [id number] Transcribed By: brigid 03/31/23 13:47 Electronically signed by: E-Sign: STACY VALE MD 04/04/23 11:53 Update to H&P: [ ] No changes: I have examined the patient and reviewed the H&P and there are no changes. [ ] As previously dictated with the following changes: ____ (more content not included)...[facility]06[facility]2023 History and physical note Author Dr. Rojas [facility] December 26, 2022 11:25am Note Date/Time December 26, 2022 10:5 3am [facility] Medical Records Department [address] [place] [address] History & Physical Exam 12/26/22 1045 MR#: [id number] Acct: [id number] Name: VIOLETTA LINDER Rep #:[id number] : 1960 62 From: Kelly Nino FOREMAN[employer] PCP: Dr. Edyta Nichole, DO [place] [facility] [place] [facility] History and Physical Date of Admission: 01/02/23 This is a 62 year-old lady who presents to the cardiac laborer pipeline today for a cardiac catheterization following an abnormal stress echocardiogram. She has hadno previous cardiac history but a history of obstructive lung disease who says that Once upon a time she was diagnosed with mitral valve prolapse.? She has hadsome exacerbation of her pulmonary condition and was sent to cardiology for further evaluation and management.? She denies any chest pain suggestive of angina but she occasionally gets short of breath with exertion described as a tightness.? She also has some palpitations with anxiety and has been short of breath for many years.? She is not on blood pressure medication but her blood pressures have been well controlled.? She denies any dizziness or diaphoresis near syncope or syncope.? Intake Vital Signs See EMR Allergies SEE EMR Medications See EMR [facility] Medical History? Cervical radiculopathy COPD (chronic obstructive pulmonary disease) Fibromyalgia GERD (gastroesophageal reflux disease) Melanoma Mitral valve prolapse Osteopenia Right sided sciatica Stage 2 moderate COPD by GOLD classification Tobacco abuse Variant angina Vitamin D deficiency Surgical History? C1 C2 fusion H/O dilation and curettage left arm melanoma removed melanoma removal from right shoulder blade Family History Father?? CVA (cerebral vascular accident) Hypertension Kidney diseaseMother Arrhythmia DementiaSister Thyroid disorder Lung cancer HypertensionAunt Breast cancerAunt Bladder cancerBrother Hypertension Social History Smoking Status:? Current every day smoker alcohol intake:? current ROS Const Const: Negative for fatigue, weakness, headache(s), frequent falls, difficulty sleeping or excessive sweating Eyes Eyes: Negative for loss of peripheral vision, transient loss of vision, blurry vision, double vision or tunnel vision ENT ENT: Negative for headache(s), dizziness, Nosebleed/epistaxis or balance problems Cardio Chest Pain: Yes Character: tightness Palpitations: Yes Edema: None Muscle aches with walking: None Resp Respiratory: Positive for SOB with activity; Negative for SOB at rest, SOB orthopnea\SOB lying down, Cough or paroxysmal nocturnal dyspnea GI GI: Negative nausea, vomiting or heartburn : Negative for hematuria Musc Musc: Negative for muscle aches/ myalgia, muscle weakness, joint pain or balanceproblems Skin Skin: Negative non-healing lesions, rash or unusual bruising Neuro Neuro: Negative for dizziness, lightheadedness, near syncope, syncope, orthostatic symptoms, frequent falls, headache(s), weakness, confusion, memory loss, blurry vision, double vision, vertigo or lack of coordination Jermaine Hematologic/Lymphatic: Negative for easy bleeding or easy bruising Endo Endo: Negative for fatigue, excessive sweating, flushing or increased thirst/drinking Psych Psych: Negative for anxiety or depression Allergy Allergy/Immunology: Negative for hives and Negative for rash Cardiology Exam Const Appearance: cooperative, healthy appearing, no acute distress, well developed and well groomed Nutritional Appearance: average body habitus and well nourished Orientation: alert, awake and oriented x3 Head Head: normal to inspection, normocephalic and atraumatic Ears: hearing grossly normal bilaterally and external ears normal Nose: external nose normal, nares normal, nasal mucous membranes and turbinates normal, septum normal and no nasal discharge Face and Sinus: face symmetric Mouth: oral mucosae normal, tongue normal, oropharynx normal and moist mucous membranes Teeth and gingiva: dentition normal Throat: posterior oropharynx normal, tonsils normal and uvula midline Eyes General: appearance normal, both eyes and all related structures Eyelids: eyelids normal Conjunctivae: conjunctivae normal Pupils: PERRL, normal by confrontation and accommodation normal EOM: EOM intact bilaterally Neck Neck: normal visual inspection, trachea midline and no JVD JVD: +5 Carotids: normal carotid upstroke and bounding pulses Chest Chest inspection: normal inspection of the chest, symmetric chest movement and normal respiratory effort Auscultation: Bilateral: Clear to Auscultation Cardio Palpation: normal PMI Rate: regular rate Rhythm: regular rhythm Heart sounds: S1 normal, S2 normal and normal, physiologic split S2; Negative rub, gallop or murmur GI GI: normal to inspection, soft, no hepatosplenomegaly and bowel sounds present Neuro General: patient alert, patient awake, patient oriented x3, gait normal, moves all extremities and no focal sensory deficit Skin Skin: no rashes or lesions noted Extremities Pulses: Normal: Right Femoral Pulse, Left Femoral Pulse, Right Dorsalis Pedis Pulse, Left Dorsalis Pedis Pulse, Right Posterior Tibial Pulse, Left Posterior Tibial Pulse, Right Radial Pulse and Left Radial Pulse Lower Extremity Edema: None: Bilateral Musculoskel Musculoskeletal: No joint tenderness Psych Psychological: normal affect Supplemental Info Supplemental Information Stress Echocardiogram 12/19/2022: Interpretation Summary exercise stress echocardiogram. ? 62-year-old lady with a history of dyspnea on exertion. ? Stress protocol: Resting EKG demonstrates sinus rhythm with a rate of 68 bpm normal intervals arenoted resting blood pressure is 130/74 mmHg. The patient exercised according to the regular [place] protocol for total duration of 6 minutes and 19 seconds. The maximum heart rate attained was 137 bpm which was 86% of maximum predicted heart rate the maximum workload was 7.9 metabolic equivalents.Patient maintained sinus rhythm throughout the recording. At rest and during exercise no EKG changes were noted with noted ischemia. The patient did complain of significant shortness of breath. Thepeak blood pressure was 156/86 mmHg. ? Stress echocardiographic images. Resting echocardiogram demonstrated reduced left ventricular systolic function with hypokinesis of the mid inferior wall. At peak exercise there was improvement of the anterior wall with mild hypokinesis noted of the apex in the mid and basal inferior wall appeared to worsen. The global ejection fraction went from 45% to 50%. The above is suggestive of multi territory ischemia. The resting pulm artery systolic pressure was estimated to be 30 mmHg and mitzi to 60mmHg with exercise. ? Conclusion: Abnormal exercise stress echocardiogram. With evidence of apical ischemia and mid and basal inferior wall ischemia. Echocardiogram 12/16/2022: Interpretation Summary Normal LV size. Left ventricular systolic function is normal. The estimated ejection fraction is 55 %. Stage 1 diastolic dysfunction. Systolic anterior motion of the mitral valve. Pharmacologic Nuclear Stress Test 01/17/16 Conclusion: 1. Normal pharmacologic myocardial perfusion stress test. 2. Preserved ejection fraction. Pulmonary Function Test 08/19/22 Impression: Partially reversible severe large airways obstructive ventilatory defect with associated air trapping. Assessment and Plan Assessment and Plan (1) Shortness of breath: ?Status:?Acute ?Plan: She does present with shortness of breath which could be an anginal equivalent.?Her stress echocardiogram from 12/19/2022 was abnormal. She will proceed with a cardia catheterization to further assess this. (2) Abnormal stress test: Patient's stress echocardiogram from 12/19/2022 demonstrated an abnormal exercise stress echocardiogram. With evidence of apical ischemia and mid and basal inferior wall ischemia. She will proceed with a cardiac catheterization to further assess this. Depending on results, further recommendations will be made. 12/26/22 1053 <Electronically signed by Kelly CHOI> Cosigner Signature (if applicable): 12/26/22 1125 <Electronically signed by Washington Rojas MD> CC: JIMBO Mitchell; Dr. Washington Rojas MD; Dr. Edyta Nichole DO~ Signed [facility] Work Phone: [phone]) 335-306002-09-2023 Procedure [facility] Diagnosis Onset Date Resolution Status Nicotine dependence acute Asthma-COPD overlap syndrome chronic Smoking chronic Stage 3 severe COPD by GOLD classification [facility] Work Phone: Evaluation note* Diagnosis Onset Date Resolution Status Smoking greater than 30 pack years acute Asthma-COPD overlap syndrome [facility] Work Phone: evaluation note* Diagnosis Onset Date Resolution Status Smoking greater than 30 pack years acute 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 Stage 3 severe COPD by GOLD classification [facility] Work Phone: Evaluation note* Diagnosis Onset Date Resolution Status Smoking greater than 30 pack years acute 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 Stage 3 severe COPD by GOLD classification chronic Shortness of breath acute Smoking greater than 30 pack years acute Stage 3 severe COPD by GOLD classification [facility] Work Phone: Evaluation note* Diagnosis Onset Date Resolution Status Asthma-COPD overlap syndrome chronic Stage 3 severe COPD by GOLD classification chronic Shortness of breath acute Smoking greater than 30 pack years acute Stage 3 severe COPD by GOLD classification chronic Shortness of breath acute [facility] Work Phone: Evaluation note* Diagnosis Onset Date Resolution Status Shortness of breath acute Smoking greater than 30 pack years acute Stage 3 severe COPD by GOLD classification chronic Shortness of breath acute [facility] Work Phone: Evaluation note* Diagnosis Spinal stenosis- Primary Spinal stenosis, unspecified region other than cervical Spinal stenosis Spinal stenosis, unspecified region other than cervical Lumbar radiculopathy Thoracic or lumbosacral neuritis or radiculitis, unspecified [facility]No [facility] information [facility]WMer[facility] Work Phone: Evaluation note* Diagnosis Onset Date Resolution Status Admit Date Asthma-COPD overlap syndrome chronic December 27, 2024 9:14am Smoking greater than 30 pack years chronic December 27, 2024 9:14am [facility] Work Phone: Hospital Discharge instructionsAmbulatory Orders* Cardiology Location: None Selected [facility] Work Phone: Reason for referral (narrative)No reason for referral information availableWMercy Health West Hospital Work Phone: Summary Purpose Family History Relationship Condition Age at Onset Recorded Date/T alvina father Cerebrovascular accident (CVA) Unknown Hypertension Unknown mother Cardiac arrhythmia Unknown Dementia Unknown sister Disorder of thyroid Unknown Malignant neoplasm of lung Unknown Relationship Condition Age at Onset Recorded Date/T alvina father Cerebrovascular accident (CVA) Unknown Hypertension Unknown Kidney disorder Unknown mother Cardiac arrhythmia Unknown Dementia Unknown sister Disorder of thyroid Unknown Malignant neoplasm of lung Unknown aunt Malignant neoplasm of breast Unknown aunt Malignant neoplasm of urinary bladder Unk nown brother Hypertension Unknown Advance Directives Advance Directive Response Recorded Date/ Time Advance Directives No April 14, 2013 6:52am Living Will Yes November 15, 2018 5: 50pm Power of Damage Inside Adjuster Yes November 15, 2018 5:50pm Advance Directive Response Recorded Date/ Time Advance Directives No April 14, 2013 7:52am Living Will Yes November 15, 2018 6: 50pm Power of Damage Inside Adjuster Yes November 15, 2018 6:50pm Advance Directive Response Recorded Date/ Time Advance Directives No January 01 8:18am Living Will No January 01, 2023 8:18am Power of Damage Inside Adjuster No January 01 8:18am Advance Directive Response Recorded Date/ Time Advance Directives No January 01 8:18am Advance Directive Response Recorded Date/ Time Advance Directives No November 14, 2024 3:44pm Advance Directive Response Recorded Date/ Time Advance Directives No December 27 10:06am Chief Complaint and Reason for Visit Chief Complaint Admit Date xray November 14, 2024 3:44pm 6 M FU December 27, 2024 9:14 am XRAY December 27, 2024 10:0 7am Reason for Visit Admit Date Asthma-COPD overlap syndrome December 27, 2024 9:14am Smoking greater than 30 pack years December 27, 2024 9:14am Chief Complaint 4 M FU SMOKER > 30 PK YRS Reason for Visit Nicotine dependence Asthma-COPD overlap syndrome Smoking Stage 3 severe COPD by GOLD classification Chief Complaint SMOKER > 30 PK YRS 4 M FU COPD COPD Reason for Visit Smoking greater than 30 pack years Asthma-COPD overlap syndrome Chief Complaint SMOKER > 30 PK YRS 4 M FU COPD COPD COPD COPD 6 wk FU Reason for Visit Smoking greater than 30 pack years Asthma-COPD overlap syndrome Asthma-COPD overlap syndrome Stage 3 severe COPD by GOLD classification Chief Complaint 4 M FU COPD COPD COPD COPD 6 wk FU J44.9 2 W FU Reason for Visit Smoking greater than 30 pack years Asthma-COPD overlap syndrome Asthma-COPD overlap syndrome Stage 3 severe COPD by GOLD classification Shortness of breath Smoking greater than 30 pack years Stage 3 severe COPD by GOLD classification Chief Complaint 4 M FU COPD COPD COPD COPD 6 wk FU J44.9 2 W FU LUMBAR RAD Reason for Visit Smoking greater than 30 pack years Asthma-COPD overlap syndrome Asthma-COPD overlap syndrome Stage 3 severe COPD by GOLD classification Shortness of breath Smoking greater than 30 pack years Stage 3 severe COPD by GOLD classification Chief Complaint 6 wk FU J44.9 2 W FU LUMBAR RAD SOB (CASILLAS) DYSPNEA/SOB DYSPNEA/SOB Reason for Visit Asthma-COPD overlap syndrome Stage 3 severe COPD by GOLD classification Shortness of breath Smoking greater than 30 pack years Stage 3 severe COPD by GOLD classification Shortness of breath Chief Complaint J44.9 2 W FU LUMBAR RAD SOB (CASILLAS) DYSPNEA/SOB DYSPNEA/SOB Amb Documentation ABN STRESS ABN STRESS Reason for Visit Shortness of breath Smoking greater than 30 pack years Stage 3 severe COPD by GOLD classification Shortness of breath Chief Complaint Admit Date xray November 14, 2024 3:44pm 6 M FU December 27, 2024 9:14 am Chief Complaint Admit Date xray November 14, 2024 3:44pm 6 M FU December 27, 2024 9:14 am XRAY December 27, 2024 10:0 7am 6 wk FU February 07, 2025 8:59 am Reason for Visit Admit Date Asthma-COPD overlap syndrome December 27, 2024 9:14am Smoking greater than 30 pack years December 27, 2024 9:14am Asthma-COPD overlap syndrome February 07, 2025 8:59am Smoking greater than 30 pack years February 07, 2025 8:59am Chief Complaint Admit Date 6 M FU December 27, 2024 9:14 am XRAY December 27, 2024 10:0 7am 6 wk FU February 07, 2025 8:59 am EORDER March 21, 2025 11:06am 8 wk fu March 28, 2025 12:37pm Reason for Visit Admit Date Asthma-COPD overlap syndrome December 27, 2024 9:14am Smoking greater than 30 pack years December 27, 2024 9:14am Asthma-COPD overlap syndrome February 07, 2025 8:59am Smoking greater than 30 pack years February 07, 2025 8:59am Asthma-COPD overlap syndrome March 132024 12:37pm Smoking greater than 30 pack years [facility] 2024 12:37pm Additional Source Comments INFORMATION SOURCE (unrecogn ized section and content) DATE CREATED AUTHOR 01/05/2018 [facility] DATE CREATED AUTHOR AUTHOR'S ORGANIZ ATION 12/06/2020 [facility] DATE CREATED AUTHOR AUTHOR'S ORGANIZ ATION 03/08/2022 [facility] ([place]) DATE CREATED AUTHOR AUTHOR'S ORGANIZ ATION 09/14/2023 [facility] DATE CREATED AUTHOR AUTHOR'S ORGANIZ ATION 10/16/2023 [facility] DATE CREATED AUTHOR AUTHOR'S ORGANIZ ATION 03/29/2025 [facility] Goals (unrecognized section and content) Goals may be documented in a n alternate sectionGoals may be documented in an alternate sectionGoals may be documented in an alternate sectionGoals may be documented in an alternate sectionGoals may be documented in an alternate sectionGoals may be documented in an alternate sectionGoals may be documented in an alternate sectionGoals may be documented in an alternate sectionGoals may be documented in an alternate sectionGoals may be documented in an alternate sectionGoals may be documented in an alternate sectionGoals may be documented in an alternate sectionGoals may be documented in an alternate sectionGoals may be documented in an alternate section Care Teams (unrecognized sec tion and content) Team Status: Active Member Role Status Dates Dr. Edyta Nichole DO Family Provider Active Dr. Edyta Nichole DO Primary Care Provider Active Team Status: Inactive Member Role Status Dates Dr. Edyta Nichole DO Primary Care Provider, Referring P rovider Active Carol Casillas FOREMAN/PILE DRIVING [employer] ERECTION, FOREMAN/[employer]LE [employer]IVING [employer]RECTION-C Attending Provider Active Team Status: Active Member Role Status Dates Dr. Edyta Nichole DO Primary Care Provider Active Carol Casillas FOREMAN/PILE DRIVING [employer] ERECTION, FOREMAN/PILE DRIVING [employer] ERECTION-C Other Provider Active Dr. Santana Burgos DO Attending Provider Active Team Status: Inactive Member Role Status Dates Dr. Edyta Nichole DO Primary Care Provider Active Carol Casillas FOREMAN/PILE DRIVING [employer] ERECTION, FOREMAN/PILE DRIVING [employer] ERECTION-C Attending Provider, Referrin g Provider Active Team Status: Inactive Member Role Status Dates Dr. Edyta Nichole DO Primary Care Provider Active Carol Casillas FOREMAN/PILE DRIVING [employer] ERECTION, FOREMAN/PILE DRIVING [employer] ERECTION-C Attending Provider Active Team Status: Inactive Member Role Status Dates Dr. Edyta Nichole DO Primary Care Provider, Referring P rovider Active Dr. Leighton Ruiz MD Attending Provider Active Team Status: Active Member Role Status Dates Dr. Edyta Nichole DO Primary Care Provider Active Carol Casillas FOREMAN/PILE DRIVING [employer] ERECTION, FOREMAN/PILE DRIVING [employer] ERECTION-C Referring Provider, Other Pr ovider Active Dr. Santana Burgos DO Attending Provider Active Team Status: Inactive Member Role Status Dates Dr. Edyta Nichole DO Primary Care Provider Active Dr. Leighton Ruiz MD Attending Provider, Referring Pr ovider Active Team Status: Inactive Member Role Status Dates Dr. Edyta Nichole DO Primary Care Provide r, Attending Provider, Referring Provider Active Team Status: Inactive Member Role Status Dates Dr. Edyta Nichole DO Primary Care Provider, Referring P rovider Active Dr. Washington Rojas MD Attending Provider Active Team Status: Active Member Role Status Dates Dr. Edyta Nichole DO Primary Care Provider Active Dr. Washington Rojas MD Attending Provider Active Team Status: Active Member Role Status Dates Dr. Edyta Nichole DO Primary Care Provider Active Dr. Washington Rojas MD Attending Provider, Referring Pro vider Active Team Status: Inactive Member Role Status Dates Dr. Edyta Nichole DO Primary Care Provider Active Dr. Washington Rojas MD Attending Provider, Referring Pro vider Active Team Status: Active Member Role Status Dates Dr. Edyta Nichole DO Primary Care Provider Active Bette Black Attending Provider Active Team Status: Active Member Role Status Dates Dr. Edyta Nichole DO Primary Care Provider Active Dr. Washington Rojas MD Other Provider Active Kelly Mitchell NP, FOREMAN/[employer]LE DRIVING [employer] ERECTION-C Attending Provider Active Applications Programmer Relationship Specialty Start Date End Date Alberto Tong PA [address] [place] [phone] PCP - General Family Medicine 08/06/23 08/19/23 Edyta Nichole [address] [facility] [place] [id number] PCP - General Family Medicine 08/20/23 Team Status: Active Member Role Status Dates Dr. Edyta Nichole DO Family Provider Active Dr. Beata Schwarz MD Primary Care Provider Active Team Status: Inactive Member Role Status Dates Dr. Beata Schwarz MD Primary Care Provider Active Start: October 21, 2024 End: October 21, 2024 BLOSSOM HernandezC Attending Provider Active St art: October 21, 2024 End: October 21, 2024 Team Status: Inactive Member Role Status Dates Dr. Beata Schwarz MD Primary Care Provider Active Start: November 14, 2024 End: November 14, 2024 Dr. Washington Rojas MD Attending Provider Active S tart: November 14, 2024 End: November 14, 2024 Team Status: Inactive Member Role Status Dates Dr. Beata Schwarz MD Primary Care Provider Active Start: December 27, 2024 End: December 27, 2024 Dr. Beata Schwarz MD Referring Provider Active Start: December 27, 2024 End: December 27, 2024 Sandra Soriano NP-C Attending Provider Active Start: December 27, 2024 End: December 27, 2024 Team Status: Inactive Member Role Status Dates Dr. Beata Schwarz MD Primary Care Provider Active Start: December 27, 2024 End: December 27, 2024 Dr. Washington Rojas MD Attending Provider Active S tart: December 27, 2024 End: December 27, 2024 Team Status: Inactive Member Role Status Dates Dr. Beata Schwarz MD Primary Care Provider Active Start: December 27, 2024 End: December 27, 2024 BLOSSOM GalindoC Attending Provider Active Start: December 27, 2024 End: December 27, 2024 JIMBO Galindo Referring Provider Active Start: December 27, 2024 End: December 27, 2024 Team Status: Active Member Role/Relationship Status Dates Dr. Edyta Nichole DO Family Provider Active Dr. Beata Schwarz MD Primary Care Provider Active Team Status: Inactive Member Role/Relationship Status Dates Dr. Beata Schwarz MD Primary Care Provider Active Start: October 21, 2024 End: October 21, 2024 BLOSSOM HernandezC Attending Provider Active St art: October 21, 2024 End: October 21, 2024 Team Status: Inactive Member Role/Relationship Status Dates Dr. Beata Schwarz MD Primary Care Provider Active Start: November 14, 2024 End: November 14, 2024 Dr. Washington Rojas MD Attending Provider Active S tart: November 14, 2024 End: November 14, 2024 Team Status: Inactive Member Role/Relationship Status Dates Dr. Beata Schwarz MD Primary Care Provider Active Start: December 27, 2024 End: December 27, 2024 Dr. Beata Schwarz MD Referring Provider Active Start: December 27, 2024 End: December 27, 2024 BLOSSOM GalindoC Attending Provider Active Start: December 27, 2024 End: December 27, 2024 Team Status: Inactive Member Role/Relationship Status Dates Dr. Beata Schwarz MD Primary Care Provider Active Start: December 27, 2024 End: December 27, 2024 Dr. Washington Rojas MD Attending Provider Active S tart: December 27, 2024 End: December 27, 2024 Team Status: Inactive Member Role/Relationship Status Dates Dr. Beata Schwarz MD Primary Care Provider Active Start: December 27, 2024 End: December 27, 2024 JIMBO Galindo Attending Provider Active Start: December 27, 2024 End: December 27, 2024 JIMBO Galindo Referring Provider Active Start: December 27, 2024 End: December 27, 2024 Team Status: Inactive Member Role/Relationship Status Dates Dr. Beata Schwarz MD Primary Care Provider Active Start: February 07, 2025 End: February 07, 2025 Dr. Beata Schwarz MD Referring Provider Active Start: February 07, 2025 End: February 07, 2025 JIMBO Galindo Attending Provider Active Start: February 07, 2025 End: February 07, 2025 Team Status: Inactive Member Role/Relationship Status Dates Dr. Beata Schwarz MD Primary Care Provider Active Start: December 27, 2024 End: December 27, 2024 Dr. Beata Schwarz MD Referring Provider Active Start: December 27, 2024 End: December 27, 2024 JIMBO Galindo Attending Provider Active Start: December 27, 2024 End: December 27, 2024 Team Status: Inactive Member Role/Relationship Status Dates Dr. Beata Schwarz MD Primary Care Provider Active Start: December 27, 2024 End: December 27, 2024 Dr. Washington Rojas MD Attending Provider Active S tart: December 27, 2024 End: December 27, 2024 Team Status: Inactive Member Role/Relationship Status Dates Dr. Beata Schwarz MD Primary Care Provider Active Start: December 27, 2024 End: December 27, 2024 JIMBO Galindo Attending Provider Active Start: December 27, 2024 End: December 27, 2024 JIMBO Galindo Referring Provider Active Start: December 27, 2024 End: December 27, 2024 Team Status: Inactive Member Role/Relationship Status Dates Dr. Beata Schwarz MD Primary Care Provider Active Start: February 07, 2025 End: February 07, 2025 Dr. Beata Schwarz MD Referring Provider Active Start: February 07, 2025 End: February 07, 2025 JIMBO Galindo Attending Provider Active Start: February 07, 2025 End: February 07, 2025 Team Status: Active Member Role/Relationship Status Dates Dr. Beata Schwarz MD Primary Care Provider Active Start: March 21, 2025 JIMBO Galindo Attending Provider Active Start: March 21, 2025 JIMBO Galindo Referring Provider Active Start: March 21, 2025 Team Status: Inactive Member Role/Relationship Status Dates Dr. Beata Schwarz MD Primary Care Provider Active Start: March 28, 2025 End: March 28, 2025 Dr. Beata Schwarz MD Referring Provider Active Start: March 28, 2025 End: March 28, 2025 JIMBO Galindo Attending Provider Active Start: March 28, 2025 End: March 28, 2025 Team Status: Active Member Role/Relationship Status Dates Dr. Edyta Nichole DO Primary care physician Active Dr. Beata Schwarz MD Primary care physician Active Team Status: Inactive Member Role/Relationship Status Dates Dr. Beata Schwarz MD Primary care physician Active Start: December 27, 2024 End: December 27, 2024 Dr. Beata Schwarz MD Referring Provider Active Start: December 27, 2024 End: December 27, 2024 JIMBO Galindo Attending physician Active Start: December 27, 2024 End: December 27, 2024 Team Status: Inactive Member Role/Relationship Status Dates Dr. Beata Schwarz MD Primary care physician Active Start: December 27, 2024 End: December 27, 2024 Dr. Washington Rojas MD Attending physician Active Start: December 27, 2024 End: December 27, 2024 Team Status: Inactive Member Role/Relationship Status Dates Dr. Beata Schwarz MD Primary care physician Active Start: December 27, 2024 End: December 27, 2024 JIMBO Galindo Attending physician Active Start: December 27, 2024 End: December 27, 2024 JIMBO Galindo Referring Provider Active Start: December 27, 2024 End: December 27, 2024 Team Status: Inactive Member Role/Relationship Status Dates Dr. Beata Schwarz MD Primary care physician Active Start: February 07, 2025 End: February 07, 2025 Dr. Beata Schwarz MD Referring Provider Active Start: February 07, 2025 End: February 07, 2025 JIMBO Galindo Attending physician Active Start: February 07, 2025 End: February 07, 2025 Team Status: Inactive Member Role/Relationship Status Dates Dr. Beata Schwarz MD Primary care physician Active Start: March 21, 2025 End: March 21, 2025 JIMBO Galindo Attending physician Active Start: March 21, 2025 End: March 21, 2025 JIMBO Galindo Referring Provider Active Start: March 21, 2025 End: March 21, 2025 Team Status: Inactive Member Role/Relationship Status Dates Dr. Beata Schwarz MD Primary care physician Active Start: March 28, 2025 End: March 28, 2025 Dr. Beata Schwarz MD Referring Provider Active Start: March 28, 2025 End: March 28, 2025 JIMBO Galindo Attending physician Active Start: March 28, 2025 End: March 28, 2025 Reason for Visit (unrecogniz ed section and content) Specialty Diagnoses / Procedures Referred By Contac t Referred To Contact Diagnoses Spinal stenosis of lumbar region Spinal stenosis of lumbar region [M48.061] Procedures NY LAMNOTMY INCL W/DCMPRSN NRV ROOT 1 INTRSPC LUMBR [place] CURTIS FACETECTOMY & FORAMOTOMY 1 VRT SGM LUMBAR MICRODISCECTOMY, FORAMINOTOMY LUMBAR 3-4, LUMBAR 4-5 RIGHT POSTERIOR LUMBAR LAMINECTOMY FACETECTOMY FORAMINOTOMY AND DECOMPRESSION Agatha Alejo MD [address] [facility] [address] [phone] [place] [address] [place] [address] Referral ID Status Reason Start Date Expiration Date Visits Re quested Visits Authorized [id number] 1 1 Scheduled Active and Recently Administ ered Medications (unrecognized section and content) Medication Order 08/18/2023 08/19/2023 08/20/2023 acetaminophen (Tylenol) tablet 1,000 mg 1,000 mg, Oral, Every 6 hours, First dose on Thu08/19/23 at 1730, Phase II/On Unit 1822 (Given - Provider: Kathleen Gee RN) 0008 (Given - Provider: Bryce Stevenson RN)0545 (Given - Provider: Bryce Stevenson RN)1230 (Given - Provider: Kary Calderon, LARRY)1730 (Canceled Entry - Provider: Automatic Discharge Provider - Comment: Automatically canceled at discontinue of medication order) ceFAZolin in dextrose 4% (Ancef) IVPB 2 g (COMPLETED) 2 g, IntraVENous, Administer over 30 Minutes, Every 8 hours, First dose on Ashley 08/20/23 at 0100, For 2 doses, Phase II/On Unit, premix bag, Suspected Indication (Select all that apply): Surgical Prophylaxis 0002 (New Bag - Prov ider: Bryce Stevenson RN)0032 (Stopped - Provider: Bryce Stevenson RN)0823 (New Bag - Provider: Kary Calderon RN)0853 (Stopped - Provider: Kary Calderon RN) famotidine (Pepcid) tablet 20 mg (COMPLETED)(Linked Group 1) 20 mg, Oral, Once, On Thu08/19/23 at 0945, For 1 dose, Preprocedure, IV or Oral 0954 (Given - Provider: Mathew Calix RN) gabapentin (Neurontin) capsule 100 mg (COMPLETED) 100 mg, Oral, Once, On Thu08/19/23 at 0945, For 1 dose, Preprocedure, Administer 60 minutes prior to surgery. 0954 (Given - Provider: Mathew Calix RN) methocarbamol (Robaxin) tablet 750 mg 750 mg, Oral, Every 8 hours scheduled (3 times per day), First dose on Thu08/19/23 at 2200, Phase II/On Unit 2102 (Given - Provider: Bryce Stevenson RN) 0545 (Given - Provider: Bryce Stevenson RN)1322 (Given - Provider: Kary Calderon, LARRY) mometasone-formoterol (Dulera 200) 200-5 MCG/ACT inhaler 2 puff 2 puff, Inhalation, 2 times daily, First dose on Thu08/19/23 at 2330, Rinse mouth with water after use to reduce aftertaste and incidence of candidiasis. Do not swallow. 2325 (Given - Provider: Bryce Stevenson RN) 0823 (Given - Provider: Kary Calderon RN) Non-Formulary Medication 2 puff, Inhalation, 2 times daily, First dose on Thu08/19/23 at 2145, Drug Name: Breztri Aerosphere, Form: inhaler, Length of Therapy: Indefinite, How soon needed? (normally 72 hrs needed to procure): 0-24 hrs, Reason for Non-Formulary: Pt preference/supplied, On hold since Thu08/19/2023 at 2322 until manually unheld 2144 (Not Given - Provider: Bryce Stevenson RN - Reason: Other - Comment: pt's family took home inhaler and is waiting until the morning)232 (Held by provider - Provider: Wilver De La Cruz MD - Reason: Other) 0900 (Dose Auto Held - Provider: Wilver De La Cruz MD)193 (Unheld by provider - Provider: Automatic Discharge Provider) tiotropium (Spiriva Respimat) 2.5 MCG/ACT inhaler 2 puff 2 puff, Inhalation, Daily, First dose on Thu08/19/23 at 2014 2014 (Not Given - Provider: Bryce Stevenson RN - Reason: Patient/family refused) 0829 (Given - Provider: Kary Calderon RN) Continuous Medication Order 08/18/2023 08/19/2023 08/20/2023 lactated Ringer's (LR) infusion 50 mL/hr, IntraVENous, Continuous, Starting on Thu08/19/23 at 0945, Upon admission to sameday - please start iv if patient does not have iv access. Use 500ml NS for patients on dialysis. 0954 (New Bag - Provider: Mathew Calix RN)1223 (Paused - Provider: Jean Marie Fontanez APRN - SSDS MK 2 ADVANCED OPERATOR - Comment: Switch to gravity)1224 (Restarted - Provider: JANI Trinidad CRNA)1350 (Stopped - Provider: JANI Trinidad CRNA)1815 (New Bag - Provider: Kathleen Gee RN) 0250 (New Bag - Provider: Bryce Stevenson RN)0828 (New Bag - Provider: Kary Calderon, LARRY)1057 (Rate/Dose Verify - Provider: Kary Calderon RN)1323 (Stopped - Provider: Kary Calderon RN) PRN Medication Order 08/18/2023 08/19/2023 08/20/2023 albuterol 108 (90 Base) MCG/ACT inhaler 2 puff 2 puff, Inhalation, Every 4 hours PRN, wheezing, Starting on Thu08/19/23 at 2131 ALPRAZolam (Xanax) disintegrating tablet 0.25 mg (COMPLETED) 0.25 mg, Oral, Once PRN, anxiety, Starting on Thu08/19/23 at 0941, For 1 dose, Preprocedure, Please do not administer prior to obtaining consent and/or history and physical. 0959 (Given - Provider: Mathew Calix RN) gelatin absorbable (Gelfoam) sponge (CANCELED) As needed, Starting on Thu08/19/23 at 1258, Intraprocedure 1258 (Given - Provider: Agatha Alejo MD) HYDROmorphone (Dilaudid) injection 0.25 mg(Linked Group 2) 0.25 mg, IntraVENous, Every 1 hour PRN, moderate pain (4-6), Starting on Thu08/19/23 at 1717, Phase II/On Unit, If oral and IV narcotics ordered, use oral first and only use IV if oral is ineffective or cannot take oral. Do Not give oral and IV within 1 hour of each other unless specifically ordered. HYDROmorphone (Dilaudid) injection 0.5 mg (CANCELED) 0.5 mg, IntraVENous, Every 5 min PRN, severe pain (7-10), Starting on Thu08/19/23 at 1358, For 4 doses, Recovery (only), Phase I and Phase II- Initial therapy for severe pain (7-10). Restricted to a 90 minute time frame starting when the patient can verbally state their pain score. If after 2 doses the pain score does not decrease by more than one point, then call the provider. If oral meds are utilized, do not return to initial therapy medications. 1400 (Given - Provider: Renae Lerner RN)1554 (Given - Provider: Renae Lerner RN) HYDROmorphone (Dilaudid) injection 0.5 mg(Linked Group 2) 0.5 mg, IntraVENous, Every 1 hour PRN, severe pain (7-10), Starting on Thu08/19/23 at 1717, Phase II/On Unit, If oral and IV narcotics ordered, use oral first and only use IV if oral is ineffective or cannot take oral. Do Not give oral and IV within 1 hour of each other unless specifically ordered. LORazepam (Ativan) injection 0.5 mg (COMPLETED) 0.5 mg, IntraVENous, Once PRN, for anxiety or muscle spasm., Starting on Thu08/19/23 at 1358, For 1 dose, Recovery (only), For IV doses dilute dose with 1ml NS. 1421 (Given - Provider: Renae Lerner RN) naloxone (Narcan) injection 0.4 mg 0.4 mg, IntraVENous, Every 5 min PRN, opioid reversal, respiratory depression, Starting on Thu08/19/23 at 1813, +++ For RR <10, pinpoint pupils, over sedation for opioid reversal - MUST notify concrete mason provider immediately after first dose, may give IM or SQ if no IV access +++ ondansetron (Zofran) injection 4 mg(Linked Group 3) 4 mg, IntraVENous, Every 6 hours PRN, nausea, vomiting, Starting on Thu08/19/23 at 1718, Phase II/On Unit, Give IV if patient is unable to take orally. ondansetron ODT (Zofran-ODT) disintegrating tablet 4 mg(Linked Group 3) 4 mg, Oral, Every 8 hours PRN, nausea, vomiting, Starting on Thu08/19/23 at 1718, Phase II/On Unit, Patient should allow tablet to dissolve on tongue. Do not remove from blister pack until just before administering. oxyCODONE (Roxicodone) immediate release tablet 2.5 mg(Linked Group 4) 2.5 mg, Oral, Every 4 hours PRN, moderate pain (4-6), Starting on Thu08/19/23 at 1717, Phase II/On Unit 2140 (See Alternative - Provider: Bryce Stveenson RN) 0250 (See Alternative - Provider: Bryce Stevenson RN)0823 (See Alternative - Provider: Kary Calderon, LARRY)1322 (See Alternative - Provider: Kary Calderon RN) oxyCODONE (Roxicodone) immediate release tablet 5 mg(Linked Group 4) 5 mg, Oral, Every 4 hours PRN, severe pain (7-10), Starting on Thu08/19/23 at 1717, Phase II/On Unit 2140 (Given - Provider: Bryce Stevenson RN) 0250 (Given - Provider: Bryce Stevenson RN)0823 (Given - Provider: Kary Calderon RN)1322 (Given - Provider: Kary Calderon RN) sodium chloride 0.9 % irrigation solution (CANCELED) As needed, Starting on Thu08/19/23 at 1258, Intraprocedure 1258 (Given - Provider: Agatha Alejo MD) thrombin spray (CANCELED) As needed, Starting on Thu08/19/23 at 1258, Intraprocedure 1258 (Given - Provider: Agatha Alejo MD) Linked Groups Order Group 1: famotidine (Pepcid) tablet 20 mg (COMPLETED)Jump to med 20 mg, Oral, Once, On Thu08/19/23 at 0945, For 1 dose, Preprocedure, IV or Oral Or famotidine (Pepcid) 20 mg in sodium chloride (PF) 0.9 % 10 mL injection (COMPLETED) 20 mg, IntraVENous, Administer over 2 Minutes, Once, On Thu08/19/23 at 0945, For 1 dose, Preprocedure, IV or Oral Group 2: HYDROmorphone (Dilaudid) injection 0.25 mgJump to med 0.25 mg, IntraVENous, Every 1 hour PRN, moderate pain (4-6), Starting on Thu08/19/23 at 1717, Phase II/On Unit, If oral and IV narcotics ordered, use oral first and only use IV if oral is ineffective or cannot take oral. Do Not give oral and IV within 1 hour of each other unless specifically ordered. Or HYDROmorphone (Dilaudid) injection 0.5 mgJump to med 0.5 mg, IntraVENous, Every 1 hour PRN, severe pain (7-10), Starting on Thu08/19/23 at 1717, Phase II/On Unit, If oral and IV narcotics ordered, use oral first and only use IV if oral is ineffective or cannot take oral. Do Not give oral and IV within 1 hour of each other unless specifically ordered. Group 3: ondansetron ODT (Zofran-ODT) disintegrating tablet 4 mgJump to med 4 mg, Oral, Every 8 hours PRN, nausea, vomiting, Starting on Thu08/19/23 at 1718, Phase II/On Unit, Patient should allow tablet to dissolve on tongue. Do not remove from blister pack until just before administering. Or ondansetron (Zofran) injection 4 mgJump to med 4 mg, IntraVENous, Every 6 hours PRN, nausea, vomiting, Starting on Thu08/19/23 at 171, Phase II/On Unit, Give IV if patient is unable to take orally. Group 4: oxyCODONE (Roxicodone) immediate release tablet 2.5 mgJump to med 2.5 mg, Oral, Every 4 hours PRN, moderate pain (4-6), Starting on Thu08/19/23 at 171, Phase II/On Unit Or oxyCODONE (Roxicodone) immediate release tablet 5 mgJump to med 5 mg, Oral, Every 4 hours PRN, severe pain (7-10), Starting on Thu08/19/23 at 171, Phase II/On Unit FOR RECORDS PERTAINING TO PATIENTS WHO ARE OR HAVE BEEN ENROLLED IN A CHEMICAL DEPENDENCY/SUBSTANCEABUSE PROGRAM, SOME INFORMATION MAY BE OMITTED. This clinical summary was aggregated from multiple sources. Caution should be exercised in using it in the provision of clinical care. This summary normalizes information from multiple sources, and as a consequence, information in this document may materially change the coding, format and clinical context of patient data. In addition, data may be omitted in some cases. CLINICAL DECISIONS SHOULD BE BASED ON THE PRIMARY CLINICAL RECORDS. [facility]. provides no warranty or guarantee of the accuracy or completeness of information in this document.
--- NOTE | 2025-06-20 07:00 | CT_ITS ---
PROCEDURE: LOW DOSE CT LUNG SCREENING 06/20/2025 REASON FOR EXAM: SMOKING GREATER THAN 30 YEAR PPD HISTORY TECHNIQUE: Procedure Code: [id number] Modality: CT Procedure: LOW DOSE CT LUNG SCREENING Coronal and Sagittal reconstruction series were provided. One or more dose reduction techniques were used (e.g., Automated exposure control, adjustment of the mA and/or kV according to patient size, use of iterative reconstruction technique). REFERENCE LINK: [facility] Lung-RADS RADIATION DOSE SUMMARY: CTDlvol: 3.02 mGy DLP: 111.74 mGycm COMPARISON: Chest radiograph dated 06/16/2025 and low-dose CT of June 16, 2024 FINDINGS: Lungs and Airways: Severe emphysematous changes. Diffuse bronchial thickening throughout the airways. Trachea is patent. No distinct endobronchial lesion seen. Pulmonary Nodules: No suspicious pulmonary nodules. Lymph Nodes:No mediastinal hilar or axillary lymphadenopathy. Heart and Pericardium:Normal heart size. No pericardial effusion. Aorta: Thoracic aorta has normal contours; noncontrast technique limits evaluation. Pulmonary Arteries: The pulmonary arteries are grossly unremarkable. Lungs and Airways: The lungs are normally expanded and clear. Pleura:No pleural effusion. No pneumothorax. Upper Abdomen:Visualized portions of the upper abdominal viscera are unremarkable. Bones:Bone windows are unremarkable. Chest wall:Normal. CT/Low Dose CT Lung Screening IMPRESSION: Severe emphysematous changes with diffuse bronchial thickening likely related t o reactive airways. No acute cardiopulmonary process. No suspicious pulmonary nodule. Coronary artery calcification (CAC) is is absent Lung-RADS Category: 1 NEGATIVE. RECOMMEND 12-MONTH SCREENING LDCT. Other Significant Findings: None Reading Location: [facility]
--- NOTE | 2025-06-20 07:16 | BI_ITS ---
EXAM: SCRN MAMM (CAD)W/TREVER BILAT DATE: 06/20/2025 CLINICAL HISTORY: F, Age 65 y/o , SCREENING Aunt with breast cancer. TECHNIQUE: Procedure Code: [id number] Modality: MG Procedure: SCRN MAMM (CAD)W/TREVER BILAT COMPARISON: Prior exam(s) dated June 01, 2024.. FINDINGS: TISSUE DENSITY: The breasts are extremely dense, which lowers the sensitivity of mammography. Bilateral Breast Mammographic Findings: Questionable 1 cm right retroareolar nodular density. Sonographic correlation recommended. BI/SCRN MAMM (CAD)W/TREVER BILAT IMPRESSION: Questionable 1 cm right retroareolar nodular density as described. Sonographic correlation recommended. OVERALL FINAL ASSESSMENT BI-RADS 0: INCOMPLETE - NEED ADDITIONAL IMAGING EVALUATION. RECOMMENDATION: Ultrasound Recommended Additional Recommendation none A letter with findings and recommendations will be mailed to the patient. Reading Location: [place] [id number]
== END | disposition home or self-care (01) ==
PROVIDERS: PCP Family Medicine; Referring Provider Nurse Practitioner Family; Visit Provider Nurse Practitioner Family
DX: Z12.31 Encounter for screening mammogram for malignant neoplasm of breast (principal); Z80.3 Family history of malignant neoplasm of breast; Z12.2 Encounter for screening for malignant neoplasm of respiratory organs; F17.210 Nicotine dependence, cigarettes, uncomplicated
CPT/HCPCS: 71271; 77063; 77067

== ENCOUNTER → 2025-06-21 | Outpatient (CLI) | payer OTHER, MEDICAID, SELFPAY ==
--- NOTE | 2025-06-21 08:47 | US_ITS ---
PROCEDURE: BREAST LIMITED UNILATERAL 06/21/2025 REASON FOR EXAM: F, Age 65 y/o , NODULAR DENSITY Abnormal screening mammogram. COMPARISON: Prior mammogram dated June 20, 2025.. TECHNIQUE: Procedure Code: [id number] Modality: US Procedure: BREAST LIMITED UNILATERAL. The retroareolar region of the right breast was examined with ultrasound. FINDINGS: Dilated retroareolar ducts. No solid or cystic abnormality is seen. US/Breast Limited Unilateral IMPRESSION: Dilated retroareolar ducts. BI-RADS 2: BENIGN RECOMMENDATION: Routine annual follow-up in 1 Year Reading Location: [facility]
--- OUTSIDE RECORDS SUMMARY | 2025-06-21 09:26 | XMS RPT_ITS | CCD ---
Author Organization [facility] CliniSyid Care Team Providers Care Neurosurgery Spine Physician Name Role Phone Sonja ORGANIZATIONAL DEVELOPMENT MANAGER, Carol S Unavailable Dr. Edyta Nichole Primary Care Provider Dr. Edyta Nichole Referring Provider Dr. Leighton Ruiz Attending Provider [phone] Edyta Nichole Primary Care Provider Dr. Edyta Nichole Referring Provider Sonja EYELET RIVETER, EYELET RIVETER-C Carol Attending Provider Sonja EYELET RIVETER, EYELET RIVETER-C Carol Other Provider Dr. Santana Burgos Attending Provider Sonja EYELET RIVETER, EYELET RIVETER-C Carol Referring Provider Dr. Leighton Ruiz Attending Provider [phone] Edyta Nichole Primary Care Provider Dr. Edyta Nichole Referring Provider [phone] Sonja EYELET RIVETER, EYELET RIVETER-C Carol Attending Provider [phone] Sonja EYELET RIVETER, EYELET RIVETER-C Carol Referring Provider [phone] Sonja EYELET RIVETER, EYELET RIVETER-C Carol Other Provider Dr. Santana Burgos Attending Provider Dr. Leighton Ruiz Attending Provider Dr. Edyta Nichole Primary Care Provider Dr. Edyta Nichole Referring Provider Sonja EYELET RIVETER, EYELET RIVETER-C Carol Attending Provider Dr. [place] Rojas Attending Provider Dayanara, Dr. Lan Primary Care Provider Dr. Edyta Nichole Referring Provider Dr. [place] Rojas Referring Provider Bette Black Attending Provider Unavailable Crystal, Dr. Delarosa Other Provider Stephen EYELET RIVETER, EYELET RIVETER-C Attending Provider Alycia [facility] Primary Care Provider [phone] Edyta Nichole Primary Care Provider AGATHA ALEJO Attending Unavailable [facility] Primary Care Unavailable AGATHA ALEJO Admitting [...] Provider Crystal BAILEY, Dr. Delarosa Attending Provider [phone] Washington Rojas Attending Unavailable Mied, Westhoff Primary Care Unavailable Miedel, Beata Primary Care Unavailable Miedel, Beata Attending Unavailable Miedel, Beata Referring Unavailable Miedel, Westhoff Primary Care Unavailable Sandra Soriano Attending Unavailable Sandra Soriano Referring Unavailable Micki Laird Attending Unavailable Miedel, Westhoff Primary Care Unavailable Sonja EYELET RIVETER, Carol Attending Unavailable Sonja EYELET RIVETER, Carol Referring Unavailable Miedel, Westhoff Primary Care Unavailable Miedel, Westhoff Primary Care Unavailable Miedel, Beata Attending Unavailable Miedel, Beata Referring Unavailable Miedel, Westhoff Primary Care Unavailable Sandra Soriano Attending Unavailable Sandra Soriano Referring Unavailable Sandra Soriano Attending Unavailable Miedel, Beata Referring Unavailable Miedel, Westhoff Primary Care Unavailable Miedel, Westhoff Primary Care Unavailable Sandra Soriano Attending Unavailable Miedel, Beata Referring Unavailable Malys, Edyta Referring Unavailable Miedel, Westhoff Primary Care Unavailable Sandra Soriano Attending Unavailable Washington Rojas Attending Unavailable Mied, Westhoff Primary Care Unavailable Miedel, Westhoff Primary Care Unavailable Sandra Soriano Attending Unavailable Mied, Beata Referring Unavailable Chong BAILEY, Dr. Cota Primary Care Physician Christie EYELET RIVETER-CSandra Attending Physician Dr. Washington Rojas MD Attending Physician [phone] Allergies Allergy Classification Reported Allergen(s) Allergy Type Date of Onset Reaction(s) Facility (3 sources) dicloxacillin; Translations: [DICLOXACILLIN] Drug Allergy 6 [facility] Repository (3 sources) ePHEDrine; Translations: [EPHEDRINE] Drug Allergy 6 [facility] Repository (19 sources) Amoxicillin; Translations: [AMOXICILLIN] Drug Allergy 5 Unknown [facility] Work Phone: (6 sources) Clavulanate Drug Allergy 5 Vomiting [facility] (1 source) Clavulanate Drug Allergy 5 [facility] Repository NEGATED: Highlighted row has been ruled out! (1 source) Observed no known allergies at [facility] No Known Allergies 7 propensity to adverse reactions [facility] Work Phone: Medications Current Medications Medication Drug [...] days. 15 tablet 0 08/19/2023 08/26/2023 Active [id number] actuat albuterol 0.09 mg/actuat metered dose [...] 1 vial q4h as needed ALBUTEROL SULFATE [id number] Carol Casillas CNP Start: 09-26-2016 take 2 puff(s) by in halation every four hours as needed VENTOLIN HFA 108 (90 Base) MCG/ACT AERS INH 2 puffs q4h as needed ALBUTEROL SULFATE [id number] Carol Casillas CNP Start: 09-06-2016 End: 09-06-2016 [...] 1 puff q6h as needed ALBUTEROL SULFATE [id number] Huber TORRES End: 01-16-2015 ALBUTEROL SULFATE (5 MG/ML) 0.5% NEBU i inhalation Q 4-6H, as needed ALBUTEROL SULFATE [id number] Monica Jarrell End: 10-31-2015 PROVENTIL HFA 108 (90 Base) MCG/ACT AERS 2 inhalation puffs Q 6 H as needed ALBUTEROL SULFATE [id number] Edyta Nichole, albuterol 0.833 mg/ml / ipratropium [...] Q 6- 8 H, as needed IPRATROPIUM-ALBUTEROL [id number] Jordi Rodriguez MA ascorbic acid 1000 mg [...] 28, 2025 12:49pm Start: 12-27-2024 End: 03-28-2025 Iuyutgnskd-Odclupcl-Nvikvumu ol (Breztri Aerosphere) 160-9-4.8 mcg/actuation HFA aerosol [...] 27, 2024 9:31am Start: 06-24-2024 End: 12-27-2024 Aiadcyetlv-Oogolbch-Xdafyrqd ol (Breztri Aerosphere) 160-9-4.8 mcg/actuation HFA aerosol inhaler Discontinued 2 NMA INHALATION TWICE A DAY 3 3 June 24, 2024 9:46am December 27, 2024 9:49am Start: 06-24-2024 End: 12-27-2024 Vypyboyqbf-Cgmqnips-Ixypcbjr ol (Breztri Aerosphere) 160-9-4.8 mcg/actuation HFA aerosol inhaler Discontinued 2 NMA INHALATION TWICE A DAY 3 June 24, 2024 9:46am December 27, 2024 9:49am Start: 06-24-2024 Budesonide-Gly copyr-Formoterol (Breztri Aerosphere) 160-9-4.8 mcg/actuation HFA aerosol inhaler Active 2 NMA INHALATION TWICE A DAY 3 June 24, 2024 9:46am Start: 04-28-2024 End: 06-24-2024 Navamwmtrh-Jjahpygy-Bgrznthd ol (Breztri Aerosphere) 160-9-4.8 mcg/actuation HFA aerosol inhaler Discontinued 2 NMA INHALATION TWICE A DAY 3 3 April 28, 2024 7:31pm June 24, 2024 9:47am Start: 04-28-2024 End: 06-24-2024 Ivgstzehbf-Buocasqw-Ztoudmam ol (Breztri Aerosphere) 160-9-4.8 mcg/actuation HFA aerosol inhaler Discontinued 2 NMA INHALATION TWICE A DAY 3 April 28, 2024 7:31pm June 24, 2024 9:47am Start: 02-02-2024 End: 04-28-2024 Qtlqzzhzoa-Bnwyrhvd-Nduldmmi ol (Breztri Aerosphere) 160-9-4.8 mcg/actuation HFA aerosol inhaler Discontinued 2 NMA INHALATION TWICE A DAY 3 3 February 02, 2024 8:24am April 28, 2024 7:32pm Start: 02-02-2024 End: 04-28-2024 Hrfellllce-Gubmcuiw-Ovpwymui ol (Breztri Aerosphere) 160-9-4.8 mcg/actuation HFA aerosol inhaler Discontinued 2 NMA INHALATION TWICE A DAY 3 February 02, 2024 8:24am April 28, 2024 7:32pm Start: 11-11-2023 End: 02-02-2024 Wsvdpwcezi-Elsceytf-Amzdlnca ol (Breztri Aerosphere) 160-9-4.8 mcg/actuation HFA aerosol inhaler Discontinued 2 NMA INHALATION TWICE A DAY 10.7 November 11, 2023 8:21am February 02, 2024 8:24am Start: 11-11-2023 End: 02-02-2024 Lncmysksrj-Yzwpdacw-Foitajkb ol (Breztri Aerosphere) 160-9-4.8 mcg/actuation HFA aerosol inhaler Discontinued 2 NMA INHALATION TWICE A DAY 10.7 November 11, 2023 8:21am February 02, 2024 8:24am Start: 07-20-2023 take 2 puff(s) by inhalation twice daily Breztri Aerosphere 160-9-4.8 MCG/ACT aerosol INHALE 2 (TWO) puffs twice a day] 0 07/20/2023 Active Start: 10-07-2022 End: 11-11-2023 Awqmqnjrtr-Cefvwcif-Uagvfthn ol (Breztri Aerosphere) 160-9-4.8 mcg/actuation HFA aerosol inhaler Discontinued 2 NMA INHALATION TWICE A DAY 10.7 October 07, 2022 10:42am November 11, 2023 8:21am Start: 10-07-2022 End: 11-11-2023 Wdtuhmfoeq-Tikrdula-Axikdewz ol (Breztri Aerosphere) 160-9-4.8 mcg/actuation HFA aerosol inhaler Discontinued 2 NMA INHALATION TWICE A DAY 10.7 October 07, 2022 10:42am November 11, 2023 8:21am Start: 10-07-2022 Budesonide-Gly copyr-Formoterol (Breztri Aerosphere) 160-9-4.8 mcg/actuation HFA aerosol inhaler Active 2 INH INHALATION TWICE A DAY 10.7 October 07, 2022 10:42am Start: 03-05-2022 End: 10-07-2022 Wyrjllbojc-Tqoqttuz-Rplemxsr ol (Breztri Aerosphere) 160-9-4.8 mcg/actuation HFA aerosol inhaler Discontinued 2 NMA INHALATION TWICE A DAY 10.7 5 March 05, 2022 12:00am October 07, 2022 10:42am Start: 03-05-2022 End: 10-07-2022 Jsgbaiwqec-Sudskthm-Syyjzpbv ol (Breztri Aerosphere) 160-9-4.8 mcg/actuation HFA aerosol inhaler Discontinued 2 NMA INHALATION TWICE A DAY 10.7 March 05, 2022 12:00am October 07, 2022 10:42am Start: 03-05-2022 End: 10-07-2022 Kaqvdpdrwg-Xocjwchn-Dqgkyjav ol (Breztri Aerosphere) 160-9-4.8 mcg/actuation HFA aerosol [...] (CHO LECALCIFEROL) TABS as directed CHOLECALCIFEROL TABS [id number] Huber TORRES Cholecalciferol (D3-1000 PO) Take by [...] as needed for muscle spasm/pain CYCLOBENZAPRINE HCL [id number] Huber TORRES diclofenac sodium 0.01 mg/mg topical [...] TBEC One tablet by mouth daily OMEPRAZOLE [id number] Monica Jarrell Turmeric extract (10 sources) Start: [...] One tablet by mouth twice daily AMOXICILLIN [id number] Olivia Meraz SPECIAL EVENTS DIRECTOR azithromycin 250 mg oral tablet (14 sources) [...] INH 2 puffs twice daily BUDESONIDE-FORMOTEROL FUMARATE [id number] Olivia Meraz LPN Start: 09-06-2016 End: 09-16-2018 [...] 2 puffs inhaled twice daily BUDESONIDE-FORMOTEROL FUMARATE [id number] Huber TORRES Start: 10-31-2015 SYMBICORT 160- 4.5 MCG/ACT AERO 1 puff daily BUDESONIDE-FORMOTEROL FUMARATE [id number] Edyta Nichole DO smoking cessation 12 hr [...] ANTACID CHEW PRN CA CARBONATE-MAG HYDROXIDE CHEW [id number] Huber TORRES Calcium (1 source) Phosphate Binder, Calcium Start: 09-26-2016 take 1 tablet by mouth once daily CALCIUM 600 MG TABS One tablet by mouth daily CALCIUM [id number] Olivia Meraz LPN calcium chloride 0.0014 meq/ml [...] oral at bedtime as needed GUAIFENESIN-CODE INE [id number] Monica Jarrell End: 01-16-2015 CHERATUSSIN AC 100-10 MG/5ML SOLN 1-2 teaspoon oral at bedtime as needed GUAIFENESIN-CODEINE [id number] Jordi Rodriguez MA DULoxetine 20 mg delayed [...] 05, 2019 1:00am October 02, 2022 9:19am Hplsuwsrtnx-Katqwjkga-Rykghi er (14 sources) Anticholinergic, Corticosteroid, beta2-Adrenergic Agonist Start: 12-30-2018 End: 02-28-2019 Fytinmmqymi-Rtnvqewht-Osqzbq er (Trelegy Ellipta) 100-62.5-25 mcg blister with device Discontinued 1 NMA INHALATION DAILY 60 11 December 30, 2018 12:00am February 28, 2019 2:14pm Chronic obstructive pulmonary disease, unspecified Start: 12-30-2018 End: 02-28-2019 Ldeamjgtryj-Osuhekgjh-Wxkjpg er (Trelegy Ellipta) 100-62.5-25 mcg blister with device Discontinued 1 NMA INHALATION DAILY 60 December 30, 2018 12:00am February 28, 2019 2:14pm Start: 12-30-2018 End: 02-28-2019 Lvsbuldprll-Lutjbkmha-Vhxcky er (Trelegy Ellipta) 100-62.5-25 mcg blister with device Discontinued 1 INH INHALATION DAILY 60 December 30, 2018 12:00am February 28, 2019 2:14pm Start: 12-30-2018 End: 02-28-2019 Vqwxdvbiqhc-Eitwlixtw-Hhdyas er (Trelegy Ellipta) 100-62.5-25 mcg blister with device Discontinued 1 INH INHALATION DAILY 60 December 29, 2018 11:00pm February 28, 2019 1:14pm Folic Acid (2 sources) Start: 07-10-2016 End: 04-22-2017 FOLIC ACID CAPS as directed FOLIC ACID CAPS [id number] Olivia Meraz SPECIAL EVENTS DIRECTOR Start: 07-10-2016 FOLIC ACID CAP S as directed FOLIC ACID CAPS [id number] Huber Quezada PA 120 actuat formoterol fumarate [...] 07-10-2016 IBUPROFEN 600 MG TABS 12/02 IBUPROFEN [id number] Erin Cowan PROBIOTIC PRODUCT CHEW (2 sources) Start: 07-10-2016 ACIDOPHILUS CH EW as directed PROBIOTIC PRODUCT CHEW [id number] Huber TORRES Start: 07-10-2016 End: 04-22-2017 ACIDOPHILUS CHEW as directed PROBIOTIC PRODUCT CHEW [id number] Olivia Meraz LPN lansoprazole 15 mg delayed [...] 2 sprays 1 time daily MOMETASONE FUROATE [id number] Olivia Meraz LPN MULTIPLE MINERALS-VITAMINS (2 sources) take 2 tablets by mouth once daily CALCIUM & VIT D3 BONE HEALTH LIQD 600-200 MG-Unit; Two tablets by mouth daily MULTIPLE MINERALS-VITAMINS [id number] Monica Jarrell End: 10-31-2015 take 2 tablets by mouth once daily CALCIUM & VIT D3 BONE HEALTH LIQD 600-200 MG-Unit; Two tablets by mouth daily MULTIPLE MINERALS-VITAMINS 24249764062 Edyta Nichole, DO 1 ml naloxone hydrochloride [...] patch, TD daily, sequential Discontinued 0 TD .[facility] 56 August 27, 2021 1:00am August 26, 2022 12:06pm apply 1-21 mg NICOTINE PATCH daily for 28 days; follow with 1-14 mg PATCH daily for 14 days, then 1-7mg PATCH daily for 14 days transdermal Start: 08-27-2021 End: 08-26-2022 apply 1 dose transdermal route once daily, then apply 1 dose transdermal route once daily Nicotine Discontinued 0 TD .[facility] 56 August 27, 2021 1:00am August 26, 2022 12:06pm apply 1-21 mg NICOTINE PATCH daily for 28 days; follow with 1-14 mg PATCH daily for 14 days, then 1-7mg PATCH daily for 14 days transdermal Start: 08-27-2021 End: 08-26-2022 apply 1 dose transdermal route once daily, then apply 1 dose transdermal route once daily Nicotine Discontinued 0 TD .[facility] 56 August 27, 2021 12:00am August 26, 2022 11:06am apply 1-21 mg NICOTINE PATCH daily for 28 days; follow with 1-14 mg PATCH daily for 14 days, then 1-7mg PATCH daily for 14 days transdermal Start: 08-27-2021 apply 1 dose transde rmal route once daily, then apply 1 dose transdermal route once daily Nicotine Active 0 TD .[facility] 56 August 27, 2021 12:00am apply [...] q2 hours PRN smoking urges NICOTINE POLACRILEX [id number] Huber TORRES Non-Formulary Medication (2 sources) Start: [...] tablet by mouth daily OMEGA-3 FATTY ACIDS [id number] Olivia Meraz LPN Lehr-3 Fatty Acids (7 sources) Start: 09-21-2018 End: 09-22-2018 take 1000 mg by mouth once daily Lehr-3 Fatty Acids Discontinued 1000 MG PO daily September 21, 2018 12:00am September 22, 2018 11:08am Start: 09-21-2018 End: 09-22-2018 take 1000 mg by mouth once daily Lehr-3 Fatty Acids Discontinued 1000 MG PO daily September 20, 2018 11:00pm September 22, 2018 10:08am Lehr-3 Fatty Acids 1,000 mg capsule (7 sources) Start: 09-21-2018 End: 09-22-2018 take 1 capsule by mouth once daily Lehr-3 Fatty Acids 1,000 mg capsule Discontinued 1000 mg PO daily 0 September 21, 2018 12:00am September 22, 2018 11:08am Start: 09-21-2018 End: 09-22-2018 take 1 capsule by mouth once daily Lehr-3 Fatty Acids 1,000 mg capsule Discontinued 1000 [...] 3 days, 1/2 x 3 days PREDNISONE [id number] Monica Jarrell 10 actuat tiotropium 0.0025 mg/actuat inhalation spray (20 sources) Anticholinergic Start: 08-19-2023 End: 08-20-2023 take 2 puff(s) by inhalation once daily 2 puff, Inhalation, Daily, First dose on Thu08/19/23 at 2014 Start: 05-19-2019 End: 10-19-2019 take 2.5 ug by inhalation once daily Tiotropium [place] (Spiriva Respimat) 2.5 mcg/actuation mist Discontinued 2 NMA INHALATION daily 07 18May 19, 2019 7:28am October 19, 2019 9:27am administer at approximately the same time(s) each day Start: 05-19-2019 End: 10-19-2019 take 2.5 ug by inhalation once daily Tiotropium [place] (Spiriva Respimat) 2.5 mcg/actuation mist Discontinued 2 NMA INHALATION daily May 19, 2019 7:28am October 19, 2019 9:27am administer at approximately the same time(s) each day Start: 05-19-2019 End: 10-19-2019 take 1 puff(s) by inhalation once daily Tiotropium [place] (Spiriva Respimat) 2.5 mcg/actuation mist Discontinued 2 PUFF INHALATION daily May 19, 2019 7:28am October 19, 2019 9:27am administer at approximately the same time(s) each day Start: 05-19-2019 End: 10-19-2019 take 1 puff(s) by inhalation once daily Tiotropium [place] (Spiriva Respimat) 2.5 mcg/actuation mist Discontinued 2 PUFF INHALATION daily May 19, 2019 6:28am October 19, 2019 8:27am administer at approximately the same time(s) each day Start: 02-28-2019 End: 05-19-2019 take 2.5 ug by inhalation once daily Tiotropium [place] (Spiriva Respimat) 2.5 mcg/actuation mist Discontinued 2 NMA INHALATION daily 07 18February 28, 2019 12:00am May 19, 2019 7:28am administer at approximately the same time(s) each day Start: 02-28-2019 End: 05-19-2019 take 2.5 ug by inhalation once daily Tiotropium [place] (Spiriva Respimat) 2.5 mcg/actuation mist Discontinued 2 NMA INHALATION daily February 28, 2019 12:00am May 19, 2019 7:28am administer at approximately the same time(s) each day Start: 02-28-2019 End: 05-19-2019 take 1 puff(s) by inhalation once daily Tiotropium [place] (Spiriva Respimat) 2.5 mcg/actuation mist Discontinued 2 PUFF INHALATION daily February 28, 2019 12:00am May 19, 2019 7:28am administer at approximately the same time(s) each day Start: 02-28-2019 End: 05-19-2019 take 1 puff(s) by inhalation once daily Tiotropium [place] (Spiriva Respimat) 2.5 mcg/actuation mist Discontinued 2 PUFF INHALATION daily February 27, 2019 11:00pm May 19, 2019 6:28am administer at approximately the same time(s) each day Start: 09-21-2018 End: 09-22-2018 take 2.5 ug by inhalation once daily Tiotropium [place] (Spiriva Respimat) 2.5 mcg/actuation mist Discontinued 2 NMA INHALATION DAILY September 21, 2018 12:00am September 22, 2018 11:07am Start: 09-21-2018 End: 09-22-2018 take 1 puff(s) by inhalation once daily Tiotropium [place] (Spiriva Respimat) 2.5 mcg/actuation mist Discontinued 2 PUFF INHALATION DAILY September 21, 2018 12:00am September 22, 2018 11:07am Start: 09-21-2018 End: 09-22-2018 take 1 puff(s) by inhalation once daily Tiotropium [place] (Spiriva Respimat) 2.5 mcg/actuation mist Discontinued 2 PUFF INHALATION DAILY September 20, 2018 11:00pm September 22, 2018 10:07am Start: 11-03-2016 take 2 puff(s) by in halation once daily SPIRIVA RESPIMAT 2.5 MCG/ACT AERS 2 puffs INH daily TIOTROPIUM BROMIDE MONOHYDRATE [id number] Leighton Ruiz 7 actuat umeclidinium 0.0625 mg/actuat [...] MCG/INH AEPB 1 puff INH daily UMECLIDINIUM-VILANTEROL [id number] Carol Casillas CNP varenicline 1 mg oral [...] mouth once daily EFFEXOR XR 150 MG [id number] One tablet by mouth daily VENLAFAXINE HCL [id number] Monica Jarrell Problems Active Problems Problem Classification [...] Facility Pulmonary Visit Reporton Pulmonary Visit Report [facility] [address] [place] [address] OFFICE VISIT Date of Service: 03/28/25 MR#: [id number] Acct: [id number] Name: VIOLETTA LINDER Rep #: [id number] : 1960 Provider: Sandra Soriano NP Age/Sex: 65/F Location: [facility] Status: Signed Assessment and Plan Assessment [...] - Chronic obstructive pulmonary disease, unspecified Refilled sqeetvgxxa-prcwispd-ebyrqaqo ol 160-9-4.8 mcg/actuation (Breztri Aerosphere) 2 inhalations [...] Additional Comments: This note was generated with [employer] dictation software. It may contain incorrect words, [...] CT. BRIAN (more content not included)... Normal [facility] Absolute lymphocyte countOrd ered By: CHATO Sandra Christie on 03-21-2025 Lymphocytes Auto (Unsp spec) [#/Vol] 1.66 10*3/uL 0.83-4.51 [facility] Absolute neutrophil countOrd ered By: CHATO Sandraanusha Soriano on 03-21-2025 Neutrophils (Bld) [#/Vol] 5.4 10*3/uL 2.0-7.7 [facility] Automated lymphocyte count a s percentage of total leukocytesOrdered By: CHATO Sandra Celestinevikasvianca on 03-21-2025 Lymphocytes/100 WBC Auto (Unsp spec) 20.8 % 19-41 [facility] Basophil percentageOrdered B y: CHATO Sandra Christie on 03-21-2025 Basophils/100 WBC (Bld) 0.6 % 0-1 [facility] CBC W/Diff, Automatedon Absolute Lymph 1.66 X10 3/uL Normal 0.83-4.51 [facility] Comment on above: Performed By: #### L 100.0100 ####[facility] [address] [place], [place], [address] Absolute Neut 5.4 X10 3/uL Normal 2.0-7.7 [facility] Comment on above: Performed By: #### L 100.0100 ####[facility] [address] [place], [address] Basophils/100 WBC (Bld) 0.6 % Normal 0-1 [facility] Comment on above: Performed By: #### L 100.0100 ####[facility] [address] [place], [address] Eosinophils/100 WBC (Bld) 1.3 % Normal 0-5 [facility] Comment on above: Performed By: #### L 100.0100 ####[facility] [address] [place], [address] Erythrocyte distribution width (RBC) [Ratio] 13.0 % Normal 11.6-14.6 [facility] Comment on above: Performed By: #### L 100.0100 ####[facility] [address] [place], [address] Hematocrit (Bld) [Volume fraction] 45.7 % Normal 37-47 [facility] Comment on above: Performed By: #### L 100.0100 ####[facility] [address] [place], [address] Hemoglobin (Bld) [Mass/Vol] 14.8 g/dL Normal 12.0-15.0 [facility] Comment on above: Performed By: #### L 100.0100 ####[facility] [address] [place], [address] IG% 0.400 Normal 0.0-0.9 [facility] Comment on above: Result Comment: IG% - Immature Granulocytes (promyelocytes, myelocytes and metamyelocytes) > 1% indicates that a LEFT SHIFT is Present. Performed By: #### L 100.0100 ####[facility] [address] [place], [address] Lymphocytes/100 WBC (Bld) 20.8 % Normal 19-41 [facility] Comment on above: Performed By: #### L 100.0100 ####[facility] [address] [place], [address] MCH (RBC) [Entitic mass] 30.8 pg Normal 27.0-32.0 [facility] Comment on above: Performed By: #### L 100.0100 ####[facility] [address] [place], [address] MCHC (RBC) [Mass/Vol] 32.4 g/dL Normal 32-[address] [facility] Comment on above: Performed By: #### L 100.0100 ####[facility] [address] [place], [address] MCV (RBC) [Entitic vol] 95.2 fL Normal 81-99 [facility] Comment on above: Performed By: #### L 100.0100 ####[facility] [address] [place], [address] Monocytes/100 WBC (Bld) 8.9 % Normal 0-10 [facility] Comment on above: Performed By: #### L 100.0100 ####[facility] [address] [place], [address] Neutrophils/100 WBC (Bld) 68.0 % Normal 47-70 [facility] Comment on above: Performed By: #### L 100.0100 ####[facility] [address] [place], [address] Nucleated RBC (Bld) [#/Vol] 0 10*3/uL Normal 0-5 [facility] Comment on above: Performed By: #### L 100.0100 ####[facility] [address] [place], [address] Platelet mean volume (Bld) [Entitic vol] 9.5 fL Normal 6.2-12.0 [facility] Comment on above: Performed By: #### L 100.0100 ####[facility] [address] [place], [address] Platelets (Bld) [#/Vol] 284 10*3/uL Normal 150-450 [facility] Comment on above: Performed By: #### L 100.0100 ####[facility] [address] [place], [address] RBC (Bld) [#/Vol] 4.80 10*6/uL Normal 4.2-5.4 [facility] Comment on above: Performed By: #### L 100.0100 ####[facility] [address] [place], [address] RDW SD 45.5 fl High 35.1-43.9 [facility] Comment on above: Performed By: #### L 100.0100 ####[facility] [address] [place], [address] WBC (Bld) [#/Vol] 8.0 10*3/uL Normal 4.4-11.0 [facility] Comment on above: Performed By: #### L 100.0100 ####[facility] [address] [place], [address] Eosinophil percentageOrdered By: CHATO Soriano on 03-21-2025 Eosinophils/100 WBC (Bld) 1.3 % 0-5 [facility] Erythrocyte distribution wid th ratioOrdered By: CHATO Soriano on 03-21-2025 Erythrocyte distribution width (RBC) [Ratio] 13.0 % 11.6-14.6 [facility] Erythrocyte distribution wid th standard deviationOrdered By: CHATO Soriano on 03-21-2025 Erythrocyte distribution width (RBC) [Ratio] 45.5 fl High 35.1-43.9 [facility] Hematocrit Auto (Bld) [Volum e fraction]Ordered By: CHATO Soriano on 03-21-2025 Hematocrit (Bld) [Volume fraction] 45.7 % 37-47 [facility] Hemoglobin measurementOrdere d By: CHATO Soriano on 03-21-2025 Hemoglobin (Bld) [Mass/Vol] 14.8 g/dL 12.0-15.0 [facility] Immature granulocytes/100 WB C Auto (Bld)Ordered By: CHATO Soriano on 03-21-2025 Immature granulocytes/100 WBC (Bld) 0.400 % 0.0-0.9 [facility] Comment on above: IG% - Immature Granu locytes (promyelocytes, myelocytes and metamyelocytes) > 1% indicates that a LEFT SHIFT is Present. MCV (mean corpuscular volume ) determinationOrdered By: CHATO Soriano on 03-21-2025 MCV (RBC) [Entitic vol] 95.2 fL 81-99 [facility] Mean corpuscular hemoglobin (MCH) determinationOrdered By: CHATO Soriano on 03-21-2025 MCH (RBC) [Entitic mass] 30.8 pg 27.0-32.0 [facility] Mean corpuscular hemoglobin concentration (MCHC) determinationOrdered By: CHATO Soriano on 03-21-2025 MCHC (RBC) [Mass/Vol] 32.4 g/dL 32-[address] [facility] Mean platelet volume determi nationOrdered By: CHATO Soriano on 03-21-2025 Platelet mean volume (Bld) [Entitic vol] 9.5 fL 6.2-12.0 [facility] Monocyte percentageOrdered B y: CHATO Soriano on 03-21-2025 Monocytes/100 WBC (Bld) 8.9 % 0-10 [facility] Neutrophil percentageOrdered By: CHATO Soriano on 03-21-2025 Neutrophils/100 WBC (Bld) 68.0 % 47-70 [facility] Nucleated red blood cell per centageOrdered By: CHATO Soriano on 03-21-2025 Nucleated RBC/100 WBC (Bld) [Ratio] 0 % 0-5 [facility] Platelet countOrdered By: CHATO Soriano on 03-21-2025 Platelets (Bld) [#/Vol] 284 10*3/uL 150-450 [facility] RBC Auto (Bld) [#/Vol]Ordere d By: CHATO Soriano on 03-21-2025 RBC (Bld) [#/Vol] 4.80 10*6/uL 4.2-5.4 [facility] White blood cell (WBC) count Ordered By: CHATO Soriano on 03-21-2025 WBC (Bld) [#/Vol] 8.0 10*3/uL 4.4-11.0 [facility] Pulmonary Visit Reporton Pulmonary Visit Report [facility] [place] [address] [place] [address] OFFICE VISIT Date of Service: 02/07/25 MR#: [id number] Acct: [id number] Name: VIOLETTA LINDER Rep #: [id number] : 1960 Provider: Sandra Soriano NP Age/Sex: 64/F Location: [facility].PMW Status: Signed Assessment and Plan Assessment and [...] Additional Comments: This note was generated with [employer] dictation software. It may contain incorrect words, [...] Temp 9 (more content not included)... Normal [facility] Gram Stainon 12-28-2024 GS Acceptable Specimen? Yes (<25 Epithelial cells per/lpf) Gram Stain 2+ Gram positive rods 2+ Gram positive cocci 1+ Epithelial cells 1+ White Blood Cells Normal [facility] Comment on above: Performed By: #### M 100.1999, M100.2400 #### [facility] Laboratory [address] [place], [address] Respiratory Cultureon 2024 RESPC Mixed normal respira tory jennifer. No Streptococcus pneumoniae, beta-hemolytic Streptococcus or Staphylococcus aureus isolated. Normal [facility] Comment on above: Performed By: #### M 100.2000, M100.2400 #### [facility] Laboratory [address] [facility] [place], [address] Chest PA and Lateralon 12-27 Chest PA and Lateral [facility] Imaging Services [address] [place] [address] Chest PA and Lateral MR#: [id number] Acct: [id number] Name: VIOLETTA LINDER Rep #: [id number] : 1960 F 64 From: Gabe pfeiffer MD PCP: Dr. Beata Schwarz MD Status: DEP AMB Study: Chest PA and Lateral Date of Exam: 12/27/24 Exam# [id number] Ordering Dr: Sandra Soriano EYELET RIVETER- C PROCEDURE: CHEST PA AND LATERAL 12/27/2024 REASON FOR EXAM: SHORTNESS OF BREATH TECHNIQUE: CHEST PA AND LATERAL COMPARISON: Prior study dated November 14, 2024. FINDINGS: Hardware: None Heart: The heart size is normal. Mediastinum: The mediastinal contour is unremarkable. Lungs: Hyperinflation. Lungs are clear. Bones: The bones are unremarkable. RAD/Chest PA and Lateral IMPRESSION: Hyperinflation. The lungs are clear. Reading Location: [place] [address] CC: Dr. Beata Schwarz MD; Sandra Soriano NP Roll Mill Operator: Signed Normal [facility] Gram stainOrdered By: CHATO Soriano on 12-27-2024 Microscopic observation Gram stain Nom (Unsp spec) [facility] Microbial respiratory cultur eOrdered By: CHATO Soriano on 12-27-2024 Microorganism identified Cx Nom (Unsp spec) or Staphylococcus aureus isolated. [facility] Pulmonary Visit Reporton Pulmonary Visit Report [facility] [place] [address] [facility] [place] [address] OFFICE VISIT Date of Service: 12/27/24 MR#: [id number] Acct: [id number] Name: VIOLETTA LINDER Rep #: [id number] : 1960 Provider: Sandra Soriano NP Age/Sex: 64/F Location: [facility].PMW Status: Signed Assessment and Plan Assessment and [...] - Chronic obstructive pulmonary disease, unspecified Refilled whhulnylng-cureugfy-qfqnuabb ol 160-9-4.8 mcg/actuation (Breztri Aerosphere) 2 inhalations [...] Source Tempor (more content not included)... Normal [facility] Chest PA and Lateralon 11-14 Chest PA and Lateral [facility] Imaging Services [address] [place] [address] Chest PA and Lateral MR#: [id number] Acct: [id number] Name: VIOLETTA LINDER Rep #: [id number] : 1960 F 64 From: August Sleby i, MD PCP: Dr. Beata Schwarz MD Status: DEP AMB Study: Chest PA and Lateral Date of Exam: 11/14/24 Exam# [id number] Ordering Dr: Micki Laird EYELET RIVETER-C PROCEDURE: CHEST PA AND LATERAL 11/14/2024 REASON [...] pneumothorax is seen. Suggest follow-up. Reading Location: [id number] CC: EYELET RIVETER-C Micki Laird; Dr. Beata Schwarz MD Roll Mill Operator: Signed Normal [facility] Absolute lymphocyte countOrd ered By: Micki Laird on 10-21-2024 Lymphocytes Auto (Unsp spec) [#/Vol] 0.94 10*3/uL 0.83-4.51 [facility] Absolute neutrophil countOrd ered By: Micki Laird on 10-21-2024 Neutrophils (Bld) [#/Vol] 6.7 10*3/uL 2.0-7.7 [facility] Anion gap in Serum or Plasma Ordered By: Micki Laird on 10-21-2024 Anion gap [Moles/Vol] 12 mmol/L 5-[address] [facility] Automated lymphocyte count a s percentage of total leukocytesOrdered By: Micki Laird on 10-21-2024 Lymphocytes/100 WBC Auto (Unsp spec) 11.1 % Low 19-41 [facility] BUN/creatinine ratioOrdered By: Micki Laird on 10-21-2024 Urea nitrogen/Creatinine [Mass ratio] 11.2 mg/mg 10-20 [facility] Basophil percentageOrdered B y: iMcki Laird on 10-21-2024 Basophils/100 WBC (Bld) 0.5 % 0-1 [facility] Bilirubin, totalOrdered By: Micki Laird on 10-21-2024 Bilirubin [Mass/Vol] 0.41 mg/dL 0.00-1.30 [facility] CBC W/Diff, Automatedon 10-11 Absolute Lymph 0.94 X10 3/uL Normal 0.83-4.51 [facility] Comment on above: Performed By: #### L 500.4050, L503.6550, L503.6150, L100.0100 #### [facility] Laboratory [address] [place], [address] Absolute Neut 6.7 X10 3/uL Normal 2.0-7.7 [facility] Comment on above: Performed By: #### L 500.4050, L503.6550, L503.6150, L100.0100 #### [facility] [address] [place], [address] Basophils/100 WBC (Bld) 0.5 % Normal 0-1 [facility] Comment on above: Performed By: #### L 500.4050, L503.6550, L503.6150, L100.0100 #### [facility] [address] [place], [address] Eosinophils/100 WBC (Bld) 0.8 % Normal 0-5 [facility] Comment on above: Performed By: #### L 500.4050, L503.6550, L503.6150, L100.0100 #### [facility] [address] [place], [address] Erythrocyte distribution width (RBC) [Ratio] 13.4 % Normal 11.6-14.6 [facility] Comment on above: Performed By: #### L 500.4050, L503.6550, L503.6150, L100.0100 #### [facility] [address] [place], [address] Hematocrit (Bld) [Volume fraction] 43.1 % Normal 37-47 [facility] Comment on above: Performed By: #### L 500.4050, L503.6550, L503.6150, L100.0100 #### [facility] [address] [place], [address] Hemoglobin (Bld) [Mass/Vol] 14.3 g/dL Normal 12.0-15.0 [facility] Comment on above: Performed By: #### L 500.4050, L503.6550, L503.6150, L100.0100 #### [facility] [address] [place], [address] IG% 0.400 Normal 0.0-0.9 [facility] Comment on above: Result Comment: IG% - Immature Granulocytes (promyelocytes, myelocytes and metamyelocytes) > 1% indicates that a LEFT SHIFT is Present. Performed By: #### L 500.4050, L503.6550, L503.6150, L100.0100 #### [facility] [address] [place], [address] Lymphocytes/100 WBC (Bld) 11.1 % Low 19-41 [facility] Comment on above: Performed By: #### L 500.4050, L503.6550, L503.6150, L100.0100 #### [facility] Laboratory [address] [place], [address] MCH (RBC) [Entitic mass] 31.0 pg Normal 27.0-32.0 [facility] Comment on above: Performed By: #### L 500.4050, L503.6550, L503.6150, L100.0100 #### [facility] [address] [place], [address] MCHC (RBC) [Mass/Vol] 33.2 g/dL Normal 32-[address] [facility] Comment on above: Performed By: #### L 500.4050, L503.6550, L503.6150, L100.0100 #### [facility] [address] [place], [address] MCV (RBC) [Entitic vol] 93.5 fL Normal 81-99 [facility] Comment on above: Performed By: #### L 500.4050, L503.6550, L503.6150, L100.0100 #### [facility] [address] [place], [address] Monocytes/100 WBC (Bld) 8.4 % Normal 0-10 [facility] Comment on above: Performed By: #### L 500.4050, L503.6550, L503.6150, L100.0100 #### [facility] [address] [place], [address] Neutrophils/100 WBC (Bld) 78.8 % High 47-70 [facility] Comment on above: Performed By: #### L 500.4050, L503.6550, L503.6150, L100.0100 #### [facility] [address] [place], [address] Nucleated RBC (Bld) [#/Vol] 0 10*3/uL Normal 0-5 [facility] Comment on above: Performed By: #### L 500.4050, L503.6550, L503.6150, L100.0100 #### [facility] [address] [place], [address] Platelet mean volume (Bld) [Entitic vol] 9.0 fL Normal 6.2-12.0 [facility] Comment on above: Performed By: #### L 500.4050, L503.6550, L503.6150, L100.0100 #### [facility] [address] [place], [address] Platelets (Bld) [#/Vol] 285 10*3/uL Normal 150-450 [facility] Comment on above: Performed By: #### L 500.4050, L503.6550, L503.6150, L100.0100 #### [facility] [address] [place], [address] RBC (Bld) [#/Vol] 4.61 10*6/uL Normal 4.2-5.4 [facility] Comment on above: Performed By: #### L 500.4050, L503.6550, L503.6150, L100.0100 #### [facility] [address] [place], [address] RDW SD 45.8 fl High 35.1-43.9 [facility] Comment on above: Performed By: #### L 500.4050, L503.6550, L503.6150, L100.0100 #### [facility] [address] [place], [address] WBC (Bld) [#/Vol] 8.5 10*3/uL Normal 4.4-11.0 [facility] Comment on above: Performed By: #### L 500.4050, L503.6550, L503.6150, L100.0100 #### [facility] [address] [place], [address] Carbon dioxide, total [Moles /volume] in Central venous bloodOrdered By: Micki Laird on 10-21-2024 CO2 [Moles/Vol] 25.9 mmol/L 21.0-32.0 [facility] Chloride assayOrdered By: Ra ese Laird on 10-21-2024 Chloride [Moles/Vol] 100 mmol/L 98-108 [facility] Comprehensive Metabolic Prof ilon 10-21-2024 Albumin [Mass/Vol] 4.3 g/dL Normal 3.4-4.8 [facility] Comment on above: Performed By: #### L 500.4050, L503.6550, L503.6150, L100.0100 ####[facility] [address] [place], [address] Albumin/Globulin [Mass ratio] 1.8 {ratio} Normal 0.9-2.4 [facility] Comment on above: Performed By: #### L 500.4050, L503.6550, L503.6150, L100.0100 ####[facility] [address] [place], [address] ALK PHOS 70 U/L Normal 35-104 [facility] Comment on above: Performed By: #### L 500.4050, L503.6550, L503.6150, L100.0100 ####[facility] [address] [place], [address] ALT [Catalytic activity/Vol] 18 U/L Normal <=34 [facility] Comment on above: Performed By: #### L 500.4050, L503.6550, L503.6150, L100.0100 ####[facility] [address] [place], [address] AST [Catalytic activity/Vol] 24 U/L Normal <=31 [facility] Comment on above: Performed By: #### L 500.4050, L503.6550, L503.6150, L100.0100 ####[facility] [address] [place], [address] Bilirubin [Mass/Vol] 0.41 mg/dL Normal 0.00-1.30 [facility] Comment on above: Performed By: #### L 500.4050, L503.6550, L503.6150, L100.0100 ####[facility] [address] [place], [address] BUN/CRE 11.2 RATIO Normal 10-20 [facility] Comment on above: Performed By: #### L 500.4050, L503.6550, L503.6150, L100.0100 ####[facility] [address] [place], [address] Calcium [Mass/Vol] 9.2 mg/dL Normal 7.6-11.0 [facility] Comment on above: Performed By: #### L 500.4050, L503.6550, L503.6150, L100.0100 ####[facility] [address] [place], [address] Chloride [Moles/Vol] 100 mmol/L Normal 98-108 [facility] Comment on above: Performed By: #### L 500.4050, L503.6550, L503.6150, L100.0100 ####[facility] [address] [place], [address] CO2 [Moles/Vol] 25.9 mmol/L Normal 21.0-32.0 [facility] Comment on above: Performed By: #### L 500.4050, L503.6550, L503.6150, L100.0100 ####[facility] [address] [place], [address] Creatinine [Mass/Vol] 0.74 mg/dL Normal 0.70-1.[address] [facility] Comment on above: Performed By: #### L 500.4050, L503.6550, L503.6150, L100.0100 ####[facility] [address] [place], [address] GAP 12 Normal 5-15 [facility] Comment on above: Performed By: #### L 500.4050, L503.6550, L503.6150, L100.0100 ####[facility] [address] [place], [address] GFR/1.73 sq M.predicted among non-blacks MDRD (S/P/Bld) [Vol rate/Area] 90 mL/min/{1.73_m2} Normal >60 [facility] Comment on above: Result Comment: mL/m in/1.73m2 CKD-EPI Creatinine Equation (2020) Performed By: #### L 500.4050, L503.6550, L503.6150, L100.0100 ####[facility] [address] [place], [address] Globulin (S) [Mass/Vol] 2.4 g/dL Normal 2.2-4.2 [facility] Comment on above: Performed By: #### L 500.4050, L503.6550, L503.6150, L100.0100 ####[facility] [address] [place], [address] Glucose [Mass/Vol] 95 mg/dL Normal 70-99 [facility] Comment on above: Performed By: #### L 500.4050, L503.6550, L503.6150, L100.0100 ####[facility] [address] [place], [address] Potassium [Moles/Vol] 4.3 mmol/L Normal 3.3-5.[address] [facility] Comment on above: Performed By: #### L 500.4050, L503.6550, L503.6150, L100.0100 ####[facility] [address] [place], [address] Sodium [Moles/Vol] 139 mmol/L Normal 133-145 [facility] Comment on above: Performed By: #### L 500.4050, L503.6550, L503.6150, L100.0100 ####[facility] [address] [place], [address] T PROT 6.7 g/dL Normal 5.9-8.4 [facility] Comment on above: Performed By: #### L 500.4050, L503.6550, L503.6150, L100.0100 ####[facility] [address] [place], [address] Urea nitrogen [Mass/Vol] 8 mg/dL Normal 4-19 [facility] Comment on above: Performed By: #### L 500.4050, L503.6550, L503.6150, L100.0100 ####[facility] [address] [place], [address] Eosinophil percentageOrdered By: Micki Laird on 10-21-2024 Eosinophils/100 WBC (Bld) 0.8 % 0-5 [facility] Erythrocyte distribution wid th (RBC) [Ratio]Ordered By: Micki Laird on 10-21-2024 Erythrocyte distribution width (RBC) [Entitic vol] 45.8 fL High 35.1-43.9 [facility] Erythrocyte distribution wid th ratioOrdered By: Mickiamado Laird on 10-21-2024 Erythrocyte distribution width (RBC) [Ratio] 13.4 % 11.6-14.6 [facility] Erythrocyte distribution wid th standard deviationOrdered By: Manquin Eitan on 10-21-2024 Erythrocyte distribution width (RBC) [Ratio] 45.8 fl High 35.1-43.9 [facility] Ferritinon 10-21-2024 Ferritin [Mass/Vol] 41 ng/mL Normal 22-378 [facility] Comment on above: Performed By: #### L 500.4050, L503.6550, L503.6150, L100.0100 ####[facility] [address] [place], [address] GFR/1.73 sq M.predicted nathen g non-blacks MDRD (S/P/Bld) [Vol rate/Area]Ordered By: Micki Laird on 10-21-2024 Estimated GFR (MDRD) Non-Af Amer 90 >60 [facility] Comment on above: mL/min/1.73m2 CKD-EP I Creatinine Equation (2020) Glomerular filtration rate ( GFR) estimation/1.73 sq m using serum, plasma, or whole bOrdered By: Micki Laird on 10-21-2024 GFR/1.73 sq M.predicted among non-blacks MDRD (S/P/Bld) [Vol rate/Area] 90 mL/min/{1.73_m2} >60 [facility] Comment on above: mL/min/1.73m2 CKD-EP I Creatinine Equation (2020) Hematocrit Auto (Bld) [Volum e fraction]Ordered By: Micki Laird on 10-21-2024 Hematocrit (Bld) [Volume fraction] 43.1 % 37-47 [facility] Hemoglobin measurementOrdere d By: Micki Laird on 10-21-2024 Hemoglobin (Bld) [Mass/Vol] 14.3 g/dL 12.0-15.0 [facility] Immature granulocytes/100 WB C Auto (Bld)Ordered By: Micki Laird on 10-21-2024 Immature granulocytes/100 WBC (Bld) 0.400 % 0.0-0.9 [facility] Comment on above: IG% - Immature Granu locytes (promyelocytes, myelocytes and metamyelocytes) > 1% indicates that a LEFT SHIFT is Present. Ironon 10-21-2024 Iron [Mass/Vol] 71 ug/dL Normal 50-170 [facility] Comment on above: Order Comment: ADD O N IRON,FE Performed By: #### L 500.4050, L503.6550, L503.6150, L100.0100 ####[facility] [address] [place], [address] Iron (Unsp spec) [Mass/Mass] Ordered By: Micki Laird on 10-21-2024 Iron [Mass/Vol] 71 ug/dL 50-170 [facility] Iron measurement (mass/mass) Ordered By: Micki Laird on 10-21-2024 Iron (Unsp spec) [Mass/Mass] 71 ug/dL 50-170 [facility] Laboratory - Chemistry and C hemistry - challengeOrdered By: Micki Laird on 10-21-2024 AST [Catalytic activity/Vol] 24 U/L <32 [facility] Lymphocytes Auto (Unsp spec) [#/Vol]Ordered By: Micki Laird on 10-21-2024 Lymphocytes (Bld) [#/Vol] 0.94 10*3/uL 0.83-4.51 [facility] Lymphocytes/100 WBC Auto (Un sp spec)Ordered By: Micki Laird on 10-21-2024 Lymphocytes/100 WBC (Bld) 11.1 % Low 19-41 [facility] MCV (mean corpuscular volume ) determinationOrdered By: Micki Laird on 10-21-2024 MCV (RBC) [Entitic vol] 93.5 fL 81-99 [facility] Mean corpuscular hemoglobin (MCH) determinationOrdered By: Micki Laird on 10-21-2024 MCH (RBC) [Entitic mass] 31.0 pg 27.0-32.0 [facility] Mean corpuscular hemoglobin concentration (MCHC) determinationOrdered By: Micki Laird on 10-21-2024 MCHC (RBC) [Mass/Vol] 33.2 g/dL 32-[address] [facility] Mean platelet volume determi nationOrdered By: Micki Laird on 10-21-2024 Platelet mean volume (Bld) [Entitic vol] 9.0 fL 6.2-12.0 [facility] Monocyte percentageOrdered B y: Micki Laird on 10-21-2024 Monocytes/100 WBC (Bld) 8.4 % 0-10 [facility] Neutrophil percentageOrdered By: Micki Laird on 10-21-2024 Neutrophils/100 WBC (Bld) 78.8 % High 47-70 [facility] Nucleated red blood cell per centageOrdered By: Micki Laird on 10-21-2024 Nucleated RBC/100 WBC (Bld) [Ratio] 0 % 0-5 [facility] Platelet countOrdered By: Ra ese Laird on 10-21-2024 Platelets (Bld) [#/Vol] 285 10*3/uL 150-450 [facility] Potassium (Unsp spec) [Mass/ Vol]Ordered By: Micki Laird on 10-21-2024 Potassium [Moles/Vol] 4.3 mmol/L 3.3-5.[address] [facility] Potassium measurement (mass/ volume)Ordered By: Micki Laird on 10-21-2024 Potassium (Unsp spec) [Mass/Vol] 4.3 mmol/L 3.3-5.1 [facility] RBC Auto (Bld) [#/Vol]Ordere d By: Micki Laird on 10-21-2024 RBC (Bld) [#/Vol] 4.61 10*6/uL 4.2-5.4 [facility] Serum creatinine measurement (mass/volume)Ordered By: Micki Laird on 10-21-2024 Creatinine [Mass/Vol] 0.74 mg/dL 0.70-1.[address] [facility] Serum globulin measurementOr dered By: Micki Laird on 10-21-2024 Globulin (S) [Mass/Vol] 2.4 g/dL 2.2-4.2 [facility] Serum glucose measurement (m ass/volume)Ordered By: Micki Laird on 10-21-2024 Glucose [Mass/Vol] 95 mg/dL 70-99 [facility] Serum or plasma alanine price otransferase (ALT) measurementOrdered By: Micki Laird on 10-21-2024 ALT [Catalytic activity/Vol] 18 U/L <35 [facility] Serum or plasma albumin rosibel urement (mass/volume)Ordered By: Micki Laird 10-21-2024 Albumin [Mass/Vol] 4.3 g/dL 3.4-4.8 [facility] Serum or plasma albumin/glob ulin mass ratioOrdered By: Micki Laird 10-21-2024 Albumin/Globulin [Mass ratio] 1.8 {ratio} 0.9-2.4 [facility] Serum or plasma alkaline nia sphatase measurementOrdered By: Micki Laird 10-21-2024 ALP [Catalytic activity/Vol] 70 U/L 35-104 [facility] Serum or plasma calcium rosibel urement (mass/volume)Ordered By: Micki Laird 10-21-2024 Calcium [Mass/Vol] 9.2 mg/dL 7.6-11.0 [facility] Serum or plasma ferritin siena surement (mass/volume)Ordered By: Micki Laird 10-21-2024 Ferritin [Mass/Vol] 41 ng/mL 22-378 [facility] Serum or plasma urea nitroge n measurement (mass/volume)Ordered By: Micki Laird on 10-21-2024 Urea nitrogen [Mass/Vol] 8 mg/dL 4-19 [facility] Sodium levelOrdered By: Carole Laird on 10-21-2024 Sodium [Moles/Vol] 139 mmol/L 133-145 [facility] Total proteinOrdered By: Keanu Laird on 10-21-2024 Protein [Mass/Vol] 6.7 g/dL 5.9-8.4 [facility] White blood cell (WBC) count Ordered By: Micki Laird on 10-21-2024 WBC (Bld) [#/Vol] 8.5 10*3/uL 4.4-11.0 [facility] Pulmonary Visit Reporton Pulmonary Visit Report [facility] [place] [address] [place] [address] OFFICE VISIT Date of Service: 06/24/24 MR#: [id number] Acct: [id number] Name: VIOLETTA LINDER Rep #: [id number] : 1960 Provider: Sandra Soriano NP Age/Sex: 64/F Location: [facility] Status: Signed Assessment and Plan Assessment and [...] referral to the smoking cessation clinic. Discussed txzm-qg-qypj for 11 minutes habits, coping mechanisms, methods to help change desires. All questions were answered. I discussed the option of following up sooner to have accountability for smoking cessation but patient has declined today. Orders: Orders Low Dose CT Lung Screening 12 Months F17.210 - Nicotine dependence, cigarettes, uncomplicated Medications: Refilled fyyhznycub-pfchkcjv-elemgkpr ol 160-9-4.8 mcg/actuation (Breztri [employer]osphere) 2 inhalations [...] Temporal A (more content not included)... Normal [facility] Low Dose CT Lung Screeningon 06-16-[address] Lung Screening [facility] Imaging Services [address] [place], [place] [id number] Low Dose CT Lung Screening MR#: [id number] Acct: [id number] Name: VIOLETTA LINDER Rep #: [id number] : 1960 F 64 From: Gabe pfeiffer MD PCP: Dr. Beata Schwarz MD Status: REG [facility] Study: Low Dose CT Lung Screening Date of Exam: 06/16 Exam# [id number] Ordering Dr: Carol Casillas NP EYELET RIVETER-C :[id number] STUDY: LOW DOSE CT LUNG CANCER SCREENING [...] CC: JIMBO Casillas; Dr. Beata Schwarz MD Roll Mill Operator: Signed Normal [facility] SCRN MAMM (CAD)W/TREVER BILATo n 06-01-2024 SCRN MAMM (CAD)W/TREVER BILAT [facility] Imaging Services [address] [place] [address] SCRN MAMM (CAD)W/TREVER BILAT MR#: [id number] Acct: [id number] Name: VIOLETTA LINDER Rep #: [id number] : 1960 F 64 From: Gabe pfeiffer MD PCP: Dr. Beata Schwarz MD Status: REG CLI Study: SCRN MAMM (CAD)W/TREVER BILAT Date of Exam: 05/14 Exam# [id number] Ordering Dr: Beata Schwarz MD :[id number] MAMMOGRAPHY - BILATERAL SCREENING REASON FOR EXAM: [...] delay biopsy of a clinically suspicious abnormality. [id number] Electronically Signed: Gabe Haddad MD at 11:18 EST Reading Location ID and State: [facility] / [place] , Service support , CC: Dr. Beata Schwarz MD Roll Mill Operator: Signed Normal [facility] Lipid Profileon 05-10-2024 Cholesterol [Mass/Vol] 250 mg/dL High 200 [facility] Comment on above: Result Comment: <200 mg/dL Desirable 200-240 mg/dL Borderline >240 mg/dL High Risk Performed By: #### L 500.4100 #### [facility] Laboratory [address] [place], [address] Cholesterol in HDL [Mass/Vol] 80 mg/dL Normal [facility] Comment on above: Result Comment: The drugs N-Acetylcysteine and Metamizole may falsely depress this assay. Reference Range HDL <40 mg/dL Low HDL Cholesterol HDL >or= 60 mg/dL High HDL Cholesterol Performed By: #### L 500.4100 #### [facility] [address] [place], [address] Cholesterol in LDL [Mass/Vol] 151 mg/dL High 0-130 [facility] Comment on above: Performed By: #### L 500.4100 #### [facility] [address] [place], [address] Cholesterol in VLDL [Mass/Vol] 19 mg/dL Normal 5-40 [facility] Comment on above: Performed By: #### L 500.4100 #### [facility] [address] [place], [address] Triglyceride [Mass/Vol] 97 mg/dL Normal [facility] Comment on above: Result Comment: The drugs N-Acetylcysteine and Metamizole may falsely depress this assay. Serum Triglycerides Reference Interval Normal <150 mg/dL Borderline high 150 - 199 mg/dL High 200 - 499 mg/dL Very High > or = 500 mg/dL Performed By: #### L 500.4100 #### [facility] Laboratory [facility] [place], [address] CBC + DIFFon 10-14-2023 Baso # 0.02 x10EE3/UL Normal 0.00 - 0.10 [facility] Comment on above: Performed By: #### 2 26197 #### [facility],[address] [place] [address] 21121 Basophils/100 WBC (Bld) 0.2 % Normal 0.0 - 2.0 [facility] Comment on above: Performed By: #### 2 74307 #### [facility],[address] [place] [address] 76924 CBC + DIFF Normal [facility] Comment on above: Result Comment: CBC- COMPLETE BLOOD COUNT Performed By: #### 2 85797 #### [facility],[address] [place] [address] 66855 EO # 0.12 x10EE3/UL Normal 0.00 - 0.50 [facility] Comment on above: Performed By: #### 2 48462 #### [facility],[address] [place] [address] 35529 Eosinophils/100 WBC (Bld) 1.2 % Normal 0.0 - 7.0 [facility] Comment on above: Performed By: #### 2 54678 #### [facility],[address] [place] [address] 89468 Erythrocyte distribution width (RBC) [Ratio] 13.6 % Normal 12.0 - 15.6 [facility] Comment on above: Performed By: #### 2 02572 #### [facility],[address] [place] [address] 38017 Hematocrit (Bld) [Volume fraction] 41.7 % Normal 34.0 - 46.0 [facility] Comment on above: Performed By: #### 2 05094 #### [facility],[address] [place] [address] 52819 Hemoglobin (Bld) [Mass/Vol] 13.7 g/dL Normal 12.0 - 16.0 [facility] Comment on above: Performed By: #### 2 86038 #### [facility],[address] [place], [place] [address] Lymph # 2.14 x10EE3/UL Normal 0.80 - 2.80 [facility] Comment on above: Performed By: #### 2 54827 #### [facility],[address] [place], [place] [address] Lymphocytes/100 WBC (Bld) 20.7 % Normal 20.0 - 45.0 [facility] Comment on above: Performed By: #### 2 61651 #### [facility],[address] [place] [address] MANUAL DIFF N/A Normal [facility] Comment on above: Performed By: #### 2 94319 #### [facility],[address] [place] [address] 23449 MCH (RBC) [Entitic mass] 30 pg Normal 27 - 33 [facility] Comment on above: Performed By: #### 2 25126 #### [facility],[address] [place] [address] 49136 MCHC 33 X10 3 Normal 32 - 36 [facility] Comment on above: Performed By: #### 2 23043 #### [facility],[address] [place] [address] 76387 MCV (RBC) [Entitic vol] 92 fL Normal 80 - 99 [facility] Comment on above: Performed By: #### 2 38816 #### [facility],[address] [place] [address] 49417 [place] # 0.88 x10EE3/UL Normal 0.20 - 1.00 [facility] Comment on above: Performed By: #### 2 18066 #### [facility],[address] [place] [address] 51878 MONOS % 8.6 % Normal 0.0 - 10.0 [facility] Comment on above: Performed By: #### 2 17390 #### [facility],[address] [place] [address] 41628 Morphology Jorge (Bld) [Interp] N/A Normal [facility] Comment on above: Performed By: #### 2 40725 #### [facility],[address] [place] [address] 07097 Neut # 7.15 x10EE3/UL High 1.50 - 7.10 [facility] Comment on above: Performed By: #### 2 87240 #### [facility],[address] [place] [address] 79180 Neutrophils/100 WBC (Bld) 69.4 % Normal 46.0 - 76.0 [facility] Comment on above: Performed By: #### 2 96779 #### [facility],[address] [place] [address] 21163 PLATELET 308 x10EE3/UL Normal 150 - 450 [facility] Comment on above: Performed By: #### 2 57875 #### [facility],[address] [place] [address] 66607 Platelet mean volume (Bld) [Entitic vol] 6.8 fL Normal 6.6 - 10.5 [facility] Comment on above: Result Comment: AUTO MATED DIFFERENTIAL Performed By: #### 2 34355 #### [facility],[address] [place] [address] 19094 RBC 4.53 x 10EE6/UL Normal 4.10 - 5.30 [facility] Comment on above: Performed By: #### 2 56192 #### [facility],[address] [place] [address] 88653 WBC 10.3 x 10EE3/UL Normal 4.5 - 10.8 [facility] Comment on above: Performed By: #### 2 33096 #### [facility],[address] [place] [address] 50544 CHEST 2 VIEWSon 10-14-2023 CHEST [address] [address] Patient: VIOLETTA LINDER Phone#: : 1960 Age: 63 Gender: F Pt. Type: ER Account: [id number] Location: [facility] Ordering: TARA LEON Exam Date: 10/14/2023/18:41 Family Phys: EDYTA NICHOLE Charge Code: 510314 Physician: Schleicher Order #: [id number] Dose#: PROCEDURE: X-RAY CHEST 2 VIEWS COMPARISON: [facility], XR, CHEST 2 VIEWS, 07/06/2023, 11:38. [...] Herrera MD on 10/14/2023 at 18:51 Normal [facility] CMP with eGFRon 10-14-2023 AGE 63 years Normal [facility] Comment on above: Performed By: #### 2 74795 #### [facility],[address] [place] [address] 43680 Albumin [Mass/Vol] 4.1 g/dL Normal 3.4 - 5.0 [facility] Comment on above: Performed By: #### 2 82785 #### [facility],[address] [place] [address] 57185 Albumin/Globulin [Mass ratio] 1.2 {ratio} Normal 0.9 - 1.6 [facility] Comment on above: Performed By: #### 2 65141 #### [facility],[address] [place] [address] 20539 ALK PHOS 81 U/L Normal 46 - 116 [facility] Comment on above: Performed By: #### 2 60836 #### [facility],[address] [place] [address] 62361 ALT [Catalytic activity/Vol] 29 U/L Normal 16 - 63 [facility] Comment on above: Performed By: #### 2 85577 #### [facility],[address] [place] [address] 27994 Anion gap [Moles/Vol] 10 mmol/L Normal 10 - 20 [facility] Comment on above: Performed By: #### 2 25718 #### [facility],[address] [place] [address] 92973 AST [Catalytic activity/Vol] 19 U/L Normal 13 - 39 [facility] Comment on above: Performed By: #### 2 68176 #### [facility],[address] [place] [address] 95345 B/C RATIO 20 ratio Normal 0 - 30 [facility] Comment on above: Performed By: #### 2 84098 #### [facility],[address] [place] [address] 45574 Bilirubin [Mass/Vol] 0.4 mg/dL Normal 0.2 - 1.0 [facility] Comment on above: Performed By: #### 2 37437 #### [facility],[address] [place] [address] 70998 Calcium [Mass/Vol] 9.4 mg/dL Normal 8.5 - 10.1 [facility] Comment on above: Performed By: #### 2 28318 #### [facility],[address] [place] [address] 77728 Chloride [Moles/Vol] 100 mmol/L Normal 98 - 107 [facility] Comment on above: Performed By: #### 2 57865 #### [facility],[address] [place] [address] 48985 CMP with eGFR Normal [facility] Comment on above: Result Comment: COMP REHENSIVE METABOLIC PANEL Performed By: #### 2 95376 #### [facility],[address] [place] [address] 43491 CO2 [Moles/Vol] 31.2 mmol/L Normal 21.0 - 32.0 [facility] Comment on above: Performed By: #### 2 83852 #### [facility],[address] [place], [place] [address] Creatinine [Mass/Vol] 0.85 mg/dL Normal 0.55 - 1.02 [facility] Comment on above: Performed By: #### 2 92843 #### [facility],[address] [place], [place] [address] GFR/1.73 sq M.predicted among non-blacks MDRD (S/P/Bld) [Vol rate/Area] mL/min/{1.73_m2} Normal 60 - 999 [facility] Comment on above: Performed By: #### 2 51186 #### [facility],[address] [place], [place] [address] Result Comment: ACCO RDING TO THE NATIONAL KIDNEY DISEASE EDUCATION PROGRAM(NKDE), A NORMAL eGFR IS A VALUE GREATER THAN OR EQUAL TO 60 ML/MIN/1.73 SQ METERS. CHRONIC KIDNEY DISEASE: <60mL/MIN/1.73 SQ METERS KIDNEY FAILURE: <15mL/MIN/1.73 SQ METERS THIS TEST SHOULD ONLY BE USED FOR PATIENTS 18 YEARS OF AGE AND OLDER. Globulin (S) [Mass/Vol] 3.5 g/dL Normal 1.5 - 3.8 [facility] Comment on above: Performed By: #### 2 64998 #### [facility],[address] [place] [address] 70670 Glucose [Mass/Vol] 95 mg/dL Normal 74 - 106 [facility] Comment on above: Performed By: #### 2 70425 #### [facility],[address] [place] [address] Potassium [Moles/Vol] 4.3 mmol/L Normal 3.5 - 5.1 [facility] Comment on above: Performed By: #### 2 46890 #### [facility],[address] [place] [address] Protein [Mass/Vol] 7.6 g/dL Normal 6.4 - 8.2 [facility] Comment on above: Performed By: #### 2 90543 #### [facility],[address] [place] [address] Sodium [Moles/Vol] 137 mmol/L Normal 136 - 145 [facility] Comment on above: Performed By: #### 2 92849 #### [facility],[address] [place] [address] Urea nitrogen [Mass/Vol] 17 mg/dL Normal 7 - 18 [facility] Comment on above: Performed By: #### 2 20898 #### [facility],[address] [place] [address] CORONAVIRUS (SARS) ANTIGEN T ESTon 10-14-2023 EXTERNAL QC DONE? YES Normal [facility] Comment on above: Performed By: #### 2 60168 #### [facility],[address] [place] [address] INTERNAL CONTROL PASS Normal [facility] Comment on above: Performed By: #### 2 85105 #### [facility],[address] [place] [address] SARS ANTIGEN Negative Normal NORMAL: NEGATIVE [facility] Comment on above: Performed By: #### 2 94665 #### [facility],[address] [place] [address] SEND TO ? NO Normal [facility] Comment on above: Result Comment: SARS -CoV-2 THIS TEST IS BEING USED UNDER THE FDA EUA PROCEDURE. THIS ASSAY HAS BEEN VALIDATED AT FOR USE WITH NASAL AND NASOPHARYNGEAL SWAB [...] PUBLIC HEALTH AUTHORITIES. Performed By: #### 2 43679 #### [facility],[address] [place] [address] 73354 D-DIMER, QUANTITATIVEon 04-0 -2023 D-DIMER QUANT 177 ng/ml Normal 0 - 230 [facility] Comment on above: Performed By: #### 2 25470 #### [facility],[address] [place] [address] 94948 D-DIMER, QUANTITATIVE Normal [facility] Comment on above: Result Comment: LILIYA T D-DIMER Performed By: #### 2 25649 #### [facility],[address] [place] [address] 08841 LACTATEon 10-14-2023 Lactate [Moles/Vol] 0.8 mmol/L Normal 0.4 - 2.0 [facility] Comment on above: Performed By: #### 2 99346 #### [facility],[address] [place] [address] 33243 TROPONIN I, HIGH SENSITIVITY on 10-14-2023 HS TROPONIN 4.9 pg/mL Normal 0.0 - 51.4 [facility] Comment on above: Performed By: #### 2 38501 #### [facility],[address] [place] [address] 63292 CARECOORDon 08-25-2023 [facility] Patient Choice Patient Name: VIOLETTA LINDER Date of : 1960 [facility] [id number] 08-20-2023 [id number] [facility] called, as no response had been received via [employer] at this time. Referral sent to several additional agencies as discharge order noted in [facility]. Pt agreeable to first available agency. 4pm update: [facility] is able to accept. Pt updated. Will send updated documents for SOC tomorrow . Attempted to reach PCP and Dr. Alejo to determine who will follow for home care. Edyta Nichole, pt's pcp will follow for home care. Also her name was updated in [employer], the PCP previously documented was incorrect. [facility] [phone] Spoke with pt at bed side and pt is agreeable to PT (declined/denied OT needs) at home following discharge. Pt requested [facility] and referral was sent. She stated if they are unable to accept, she'll be happy with first accepting agency. [facility] is unable to staff that area with PT at this time. Pt denied DME needs. Normal [facility] [phone] Business Operations Manager tiffany quevedodanyadarlin case for Discharge Needs. Normal [facility] BASIC METABOLIC PANELon 02-0 Anion gap [Moles/Vol] 6 mmol/L Normal 3-13 [facility] Comment on above: Performed By: #### L AB15 #### Moth Exterminator: TRINITY CHASE ([id number]) [facility] ([facility]) [address] [place] [address] Calcium [Mass/Vol] 8.4 mg/dL Normal 8.4-10.4 [facility] Comment on above: Performed By: #### L AB15 #### Moth Exterminator: TRINITY CHASE ([id number]) [facility] ([facility]) [address] [place] [address] [place] Chloride [Moles/Vol] 100 mmol/L Normal 98-107 [facility] Comment on above: Performed By: #### L AB15 #### Moth Exterminator: TRINITY CHASE ([id number]) [facility] ([facility]) [address] [place] [address] [place] CO2 [Moles/Vol] 28 mmol/L Normal 22-30 [facility] Comment on above: Performed By: #### L AB15 #### Moth Exterminator: TRINITY CHASE ([id number]) [facility] ([facility]) [address] [place] [address] [place] Creatinine [Mass/Vol] 0.51 mg/dL Low 0.52-1.04 [facility] Comment on above: Performed By: #### L AB15 #### Moth Exterminator: TRINITY CHASE ([id number]) [facility] ([facility]) [address] [place] [address] [place] GLOMERULAR FILTRATION RATE ML/MIN/1.73 SQ M.PREDICTED >90.0 Normal >60.0 [facility] Comment on above: Result Comment: Calc ulation based on the Chronic Kidney Disease Epidemiology Collaboration (CKD-EPI) equation refit without adjustment for race Performed By: #### L AB15 #### Moth Exterminator: TRINITY CHASE ([id number]) [facility] ([facility]) [address] [place] [address] Glucose [Mass/Vol] 146 mg/dL High 70-100 [facility] Comment on above: Performed By: #### L AB15 #### Moth Exterminator: TRINITY CHASE ([id number]) [facility] ([facility]) [address] [place] [address] Potassium [Moles/Vol] 4.3 mmol/L Normal 3.5-5.1 [facility] Comment on above: Performed By: #### L AB15 #### Moth Exterminator: TRINITY CHASE ([id number]) [facility] ([facility]) [address] [place] [address] Sodium [Moles/Vol] 134 mmol/L Low 135-145 [facility] Comment on above: Performed By: #### L AB15 #### Moth Exterminator: TRINITY CHASE ([id number]) [facility] ([facility]) [address] [place] [address] Urea nitrogen [Mass/Vol] 14 mg/dL Normal 7-17 [facility] Comment on above: Performed By: #### L AB15 #### Moth Exterminator: TRINITY CHASE ([id number]) [facility] ([facility]) [address] [place] [address] Basic metabolic 1998 panelon 08-20-2023 Anion gap [Moles/Vol] 6 mmol/L 3 - 13 mmol/L [facility] Calcium [Mass/Vol] 8.4 mg/dL 8.4 - 10. 4 mg/dL [facility] Chloride [Moles/Vol] 100 mmol/L 98 - 10 7 mmol/L [facility] CO2 [Moles/Vol] 28 mmol/L 22 - 30 mmol/L [facility] Creatinine [Mass/Vol] 0.51 mg/dL Low 0.52 - 1.04 mg/dL [facility] GFR/1.73 sq M.predicted MDRD (S/P/Bld) [Vol rate/Area] - PINF [facility] Comment on above: Calculation based on the Chronic Kidney Disease Epidemiology Collaboration (CKD-EPI) equation refit without adjustment for race Glucose [Mass/Vol] 146 mg/dL High 70 - 100 mg/dL [facility] Interpretation and review of laboratory results Abnormal [facility] Potassium [Moles/Vol] 4.3 mmol/L 3.5 - 5.1 mmol/L [facility] Sodium [Moles/Vol] 134 mmol/L Low 135 - 145 mmol/L [facility] Urea nitrogen [Mass/Vol] 14 mg/dL 7 - 17 mg/dL [facility] CARECOORDon 08-20-2023 [facility] Assessment Date: 08/20/2023 Patient Name: Violetta Linder : 1960 Patient Information Source of Information: Patient Cognition/Language: WFL - Within Functional Limits Permission given to speak with patient healthcare representative/caregiver as indicated: Confirmation of Payer with patient/family: Yes Payer Name: [employer] [place]: No Confirmation of Primary Care Physician: Confirmed [...] Living Prescription Coverage: Yes Pharmacy Used: [facility] Medication Management: Independent Transportation/Shopping: Independent Transportation [...] home care at discharge and is requesting [facility]. FRITZ Jules made aware. Pt denies any other needs from tcc. Anticipate possible dc home tomorrow if medically stable. Ximena Albarado RN Normal [facility] CBC W Auto Differential pane l (Bld)Ordered By: Santiago Mendoza on 08-20-2023 Basophils (Bld) [#/Vol] 0.0 10*3/uL 0.0 - 0.2 10*3/uL [facility] Basophils/100 WBC (Bld) 0.1 % 0.0 - 2.0 % [facility] Eosinophils (Bld) [#/Vol] 0.0 10*3/uL 0.0 - 0.5 10*3/uL [facility] Eosinophils/100 WBC (Bld) 0.0 % Low 1.0 - 6.0 % [facility] Erythrocyte distribution width (RBC) [Ratio] 13.5 % 11.5 - 14.5 % [facility] Hematocrit (Bld) [Volume fraction] 38.5 % 35.0 - 47.0 % [facility] Hemoglobin (Bld) [Mass/Vol] 12.6 g/dL 11.7 - 16.0 g/dL [facility] Interpretation and review of laboratory results Abnormal [facility] Lymphocytes (Bld) [#/Vol] 0.6 10*3/uL Low 1.0 - 4.3 10*3/uL [facility] Lymphocytes/100 WBC (Bld) 5.3 % Low 20.0 - 40.0 % [facility] MCH (RBC) [Entitic mass] 30.4 pg 26.0 - 34.0 pg [facility] MCHC (RBC) [Mass/Vol] 32.7 % 32.0 - 36.0 % [facility] MCV (RBC) [Entitic vol] 93.0 fL 80.0 - 98.0 fL [facility] Monocytes (Bld) [#/Vol] 0.6 10*3/uL 0.0 - 0.8 10*3/uL [facility] Monocytes/100 WBC (Bld) 5.1 % 2.0 - 10.0 % [facility] Neutrophils (Bld) [#/Vol] 11.1 10*3/uL High 1.8 - 7.0 10*3/uL [facility] Neutrophils/100 WBC (Bld) 89.5 % High 40.0 - 80.0 % [facility] Nucleated RBC/100 WBC (Bld) [Ratio] 0.0 % [facility] Platelet mean volume (Bld) [Entitic vol] 6.9 fL Low 7.4 - 12.4 fL [facility] Platelets (Bld) [#/Vol] 230 10*3/uL 140 - 440 10*3/uL [facility] RBC (Bld) [#/Vol] 4.14 10*6/uL 3.8 - 5.20 10*6/uL [facility] WBC (Bld) [#/Vol] 12.4 10*3/uL High 3.6 - 10.7 10*3/uL [facility] CBC WITH AUTO DIFFERENTIALon 08-20-2023 Basophils (Bld) [#/Vol] 0.0 10*3/uL Normal 0.0-0.2 [facility] Comment on above: Performed By: #### L [id number] ####Moth Exterminator: TRINITY CHASE ([id number])[address] Basophils/100 WBC (Bld) 0.1 % Normal 0.0-2.0 [facility] Comment on above: Performed By: #### L [id number] ####Moth Exterminator: TRINITY CHASE ([id number])[facility])[address] [place] [address] Eosinophils (Bld) [#/Vol] 0.0 10*3/uL Normal 0.0-0.5 [facility] Comment on above: Performed By: #### L [id number] ####Moth Exterminator: TRINITY CHASE ([id number])[facility])[address] [place] [address] Eosinophils/100 WBC (Bld) 0.0 % Low 1.0-6.0 [facility] Comment on above: Performed By: #### L [id number] ####Moth Exterminator: TRINITY CHASE ([id number])[facility])[address] [place] [address] Erythrocyte distribution width (RBC) [Ratio] 13.5 % Normal 11.5-14.5 [facility] Comment on above: Performed By: #### L [id number] ####Moth Exterminator: TRINITY CHASE ([id number])[address] ERYTHROCYTE MEAN CORPUSCULAR HEMOGLOBIN CONCENTRATION (G/DL) BY AUTOMATED 32.7 % Normal 32.0-36.0 [facility] Comment on above: Performed By: #### L [id number] ####Moth Exterminator: TRINITY CHASE ([id number])[address] Hematocrit (Bld) [Volume fraction] 38.5 % Normal 35.0-47.0 [facility] Comment on above: Performed By: #### L [id number] ####Moth Exterminator: TRINITY CHASE ([id number])[address] Hemoglobin (Bld) [Mass/Vol] 12.6 g/dL Normal 11.7-16.0 [facility] Comment on above: Performed By: #### L [id number] ####Moth Exterminator: TRINITY CHASE ([id number])[address] Lymphocytes (Bld) [#/Vol] 0.6 10*3/uL Low 1.0-4.3 [facility] Comment on above: Performed By: #### L [id number] ####Moth Exterminator: TRINITY [id number])[facility])[address] [place] [address] Lymphocytes/100 WBC (Bld) 5.3 % Low 20.0-40.0 [facility] Comment on above: Performed By: #### L [id number] ####Moth Exterminator: TRINITY CHASE ([id number])[facility])[address] [place] [address] MCH (RBC) [Entitic mass] 30.4 pg Normal 26.0-34.0 [facility] Comment on above: Performed By: #### L [id number] ####Moth Exterminator: TRINITY CHASE ([id number])[facility])[address] [place] [address] MCV (RBC) [Entitic vol] 93.0 fL Normal 80.0-98.0 [facility] Comment on above: Performed By: #### L [id number] ####Moth Exterminator: TRINITY CHASE ([id number])[facility] ([facility])[address] [place] [address] Monocytes (Bld) [#/Vol] 0.6 10*3/uL Normal 0.0-0.8 [facility] Comment on above: Performed By: #### L [id number] ####Moth Exterminator: TRINITY CHASE ([id number])[facility])[address] [place] [address] Monocytes/100 WBC (Bld) 5.1 % Normal 2.0-10.0 [facility] Comment on above: Performed By: #### L [id number] ####Moth Exterminator: TRINITY CHASE ([id number])[facility])[address] [place] [address] Neutrophils (Bld) [#/Vol] 11.1 10*3/uL High 1.8-7.0 [facility] Comment on above: Performed By: #### L [id number] ####Moth Exterminator: TRINITY CHASE ([id number])[facility])[address] [place] [address] Neutrophils/100 WBC (Bld) 89.5 % High 40.0-80.0 [facility] Comment on above: Performed By: #### L [id number] ####Moth Exterminator: TRINITY CHASE ([id number])[facility])[address] [place] [address] NRBC (PER 100 WBCS) BY AUTOMATED COUNT 0.0 /100 WBCs Normal 0.0-2.0 [facility] Comment on above: Performed By: #### L [id number] ####Moth Exterminator: TRINITY CHASE ([id number])[facility])[address] [place] [address] Platelet mean volume (Bld) [Entitic vol] 6.9 fL Low 7.4-12.4 [facility] Comment on above: Performed By: #### L [id number] ####Moth Exterminator: TRINITY CHASE ([id number])[facility] ([facility])[address] [place] [address] Platelets (Bld) [#/Vol] 230 10*3/uL Normal 140-440 [facility] Comment on above: Performed By: #### L [id number] ####Moth Exterminator: TRINITY CHASE ([id number])[facility])[address] [place] [address] RBC (Bld) [#/Vol] 4.14 10*6/uL Normal 3.8-5.20 [facility] Comment on above: Performed By: #### L [id number] ####Moth Exterminator: TRINITY CHASE ([id number])[facility])[address] [place] [address] WBC (Bld) [#/Vol] 12.4 10*3/uL High 3.6-10.7 [facility] Comment on above: Performed By: #### L [id number] ####Moth Exterminator: TRINITY CHASE ([id number])[facility])[address] [place] [address] Laboratory - Coagulationon 0 2-08-2024 PT Coag (Bld) [Time] 10.6 s 9.0 - 1 2.0 s [facility] PROTHROMBIN TIMEon INR Coag (PPP) [Relative time] 1.0 {INR} Normal 0.9-1.1 [facility] Comment on above: Order Comment: If pa [...] Myocardial Infarction Performed By: #### Idalmis [id number] ####Moth Exterminator: TRINITY CHASE ([id number])[address] PT Coag (PPP) [Time] 10.6 s Normal 9.0-12.0 [facility] Comment on above: Order Comment: If pa tient on coumadin within 4 days prior. Performed By: #### Idalmis [id number] ####Moth Exterminator: TRINITY CHASE ([id number])[facility])[address] [place] [address] PT Coag (Bld) [Time]on 08-20 INR Coag (PPP) [Relative time] 1.0 {INR} 0.9 - 1.1 [facility] Comment on above: Recommended Anticoag ulant [...] Interpretation and review of laboratory results Normal [facility] Consulton 08-19-2023 Consult [facility] Medicine Co nsult Patient - Violetta Linder, [...] Arthritis Asthma COPD (chronic obstructive pulmonary disease) ([facility]) Past Surgical History: Past Surgical History: Procedure [...] pu (more content not included)... Normal [facility] IDNon 08-19-2023 IDN The patient is Moder ately Stable - Low risk of patient condition declining or worsening The patient's goals for the shift include pain control The clinical goals for the shift include pain control Over the shift, the patient did not make progress toward the following goals. Barriers to progression include . Recommendations to address these barriers include . [facility] No Panel Informationon 08-19 There is no interpre tation needed for this exam. IMAGING Nursing Noteon 08-19-2023 Nursing Note Assisted pt to turn onto left side [facility] Nursing Note Called for family to come back to see pt per pt request [facility] Nursing Note Called and provided update to family listed in chart for this visit [facility] Nursing Note Assisted pt to repos ition in bed [facility] Op Noteon 08-19-2023 Op Note OPERATIVE NOTE [...] fat 2 oh subcu Dermabond dank [facility] ECG 12-LEADon 08-13-2023 ECG 12-LEAD IMPRESSION: Sinus rhythm Right axis deviation Consider anteroseptal infarct Electronically Signed On 08-13-2023 13:35:28 EST by August Lowe [facility] PREPROCINSon 08-12-2023 PREPROCINS Medication List Accurate as of August 12, 2023 1:27 PM. Always use your most recent med list. albuterol 108 (90 Base) MCG/ACT inhaler Notes to patient: Ok to take if needed day of surgery [employer] 160-9-4.8 MCG/ACT aerosol Generic drug: Smasbyu-Ndqdhegdwwq-Nwnrkrgu ol Medication Adjustments for Surgery: Take morning [...] your scheduled surgery time. Please bring your [facility] Surgical folder and medication list with [...] sports drink such as Gatorade or Powerade. BUHR DRESSER AND PARKING IN THE MAIN DECK ARE [...] DAY DESK AND CHECK IN. Normal [facility] EMERGENCY REPORTon 3 EMERGENCY REPORT EMERGENCY ROOM REPORT NAME ACCOUNT SEX AGE ADMIT DISCHARGE PT MED. RECORD# NUMBER DATE DATE TYPE NIYA [id number] Xiang 63 07/06/23 07/06/23 3 VIOLETTA [id number] ROOM: ER DATE OF : 1960 DICTATING [...] Andrews Lomas MD 07/06/23 14:50 JOB #: [id number] Transcribed By: [email or web address] 07/07/23 09:45 Electronically signed by: FELIPE Lomas M.D. 07/11/23 07:20 Page 2 of 2 NIYAVIOLETTA COATES Emergency Room Report Normal [facility] CHEST 2 VIEWSon 07-06-2023 CHEST 2 VIEWS [place] [address] Patient: VIOLETTA LINDER Phone#: : 1960 Age: 63 Gender: F Pt. Type: ER Account: [id number] Location: [facility] Ordering: ANDREWS LOMAS Exam Date: 07/06/2023/11:38 Family Phys: EDYTA NICHOLE Charge Code: 201796 Physician: Schleicher Order #: [id number] Dose#: PROCEDURE: X-RAY CHEST 2 VIEWS COMPARISON: [facility], XR, CHEST 2 VIEWS, 11/12/2021, 10:02. [...] Genao MD on 07/06/2023 at 13:08 Normal [facility] CORONAVIRUS (SARS) ANTIGEN T ESTon 07-06-2023 EXTERNAL QC DONE? YES Normal [facility] Comment on above: Performed By: #### 2 [id number] #### [facility],[address] [place] [address] 99793 INTERNAL CONTROL PASS Normal [facility] Comment on above: Performed By: #### 2 22956 #### [facility],[address] [place] [address] 57305 SARS ANTIGEN Negative Normal NORMAL: NEGATIVE [facility] Comment on above: Performed By: #### 2 28308 #### [facility],[address] [place] [address] 33558 SEND TO IC? NO Normal [facility] Comment on above: Result Comment: SARS -CoV-2 THIS TEST IS BEING USED UNDER THE FDA EUA PROCEDURE. THIS ASSAY HAS BEEN VALIDATED AT FOR USE WITH NASAL AND NASOPHARYNGEAL SWAB [...] PUBLIC HEALTH AUTHORITIES. Performed By: #### 2 46854 #### [facility],[address] [place] [address] 82095 INFLUENZA VIRUS RAPID A/Bon 07-06-2023 INFLUENZA VIRUS [...] TO THREE DAYS. RESULT CRITICAL? NO Normal [facility] Comment on above: Performed By: #### 2 41349 #### [facility],[address] [place] [address] 04550 3D MAMM BILAT SCREENon 05-18 3D MAMM BILAT SCREEN [address] [address] Patient: VIOLETTA LINDER Phone#: : 1960 Age: 63 Gender: F Pt. Type: Account: [id number] Location: [facility] Ordering: BEATA SCHWARZ Exam Date: 05/15/2023/14:58 Family Phys: Charge Code: 611645 Physician: Schleicher Order #: [id number] Dose#: PROCEDURE: BILATERAL SCREENING BREAST TOMOSYNTHESIS MAMMOGRAM WITH CAD COMPARISON: [facility], 3D BILAT SCREEN, 05/09/2022, 13:49. INDICATIONS: [...] Genao MD on 05/15/2023 at 15:50 Normal [facility] BMP with eGFRon 03-31-2023 AGE 63 years Normal [facility] Comment on above: Performed By: #### 2 35180 #### [facility],[address] [place] [address] 44858 Anion gap [Moles/Vol] 13 mmol/L Normal 10 - 20 [facility] Comment on above: Performed By: #### 2 64198 #### [facility],[address] [place] [address] 14165 BMP with eGFR Normal [facility] Comment on above: Result Comment: BASI C METABOLIC PANEL Performed By: #### 2 23624 #### [facility],[address] [place] [address] 85007 Calcium [Mass/Vol] 8.7 mg/dL Normal 8.5 - 10.1 [facility] Comment on above: Performed By: #### 2 48851 #### [facility],[address] [place] [address] 44800 Chloride [Moles/Vol] 106 mmol/L Normal 98 - 107 [facility] Comment on above: Performed By: #### 2 24030 #### [facility],[address] [place] [address] 76296 CO2 [Moles/Vol] 28.4 mmol/L Normal 21.0 - 32.0 [facility] Comment on above: Performed By: #### 2 48295 #### [facility],[address] [place] [address] 63869 Creatinine [Mass/Vol] 0.61 mg/dL Normal 0.55 - 1.02 [facility] Comment on above: Performed By: #### 2 08839 #### [facility],[address] [place] [address] 28808 GFR/1.73 sq M.predicted among non-blacks MDRD (S/P/Bld) [Vol rate/Area] mL/min/{1.73_m2} Normal 60 - 999 [facility] Comment on above: Performed By: #### 2 43509 #### [facility],[address] [place], [place] [address] Result Comment: ACCO RDING TO THE NATIONAL KIDNEY DISEASE EDUCATION PROGRAM(NKDE), A NORMAL eGFR IS A VALUE GREATER THAN OR EQUAL TO 60 ML/MIN/1.73 SQ METERS. CHRONIC KIDNEY DISEASE: <60mL/MIN/1.73 SQ METERS KIDNEY FAILURE: <15mL/MIN/1.73 SQ METERS THIS TEST SHOULD ONLY BE USED FOR PATIENTS 18 YEARS OF AGE AND OLDER. Glucose [Mass/Vol] 124 mg/dL High 74 - 106 [facility] Comment on above: Performed By: #### 2 03345 #### [facility],[address] [place] [address] 07763 Potassium [Moles/Vol] 4.6 mmol/L Normal 3.5 - 5.1 [facility] Comment on above: Performed By: #### 2 72542 #### [facility],[address] [place] [address] 61400 Sodium [Moles/Vol] 143 mmol/L Normal 136 - 145 [facility] Comment on above: Performed By: #### 2 56248 #### [facility],[address] [place] [address] 69226 Urea nitrogen [Mass/Vol] 10 mg/dL Normal 7 - 18 [facility] Comment on above: Performed By: #### 2 49426 #### [facility],[address] [place] [address] CBC + DIFFon 03-31-2023 Baso # 0.00 x10EE3/UL Normal 0.00 - 0.10 [facility] Comment on above: Performed By: #### 2 79458 #### [facility],[address] [place] [address] 68724 Basophils/100 WBC (Bld) 0.1 % Normal 0.0 - 2.0 [facility] Comment on above: Performed By: #### 2 21594 #### [facility],[address] [place] [address] CBC + DIFF Normal [facility] Comment on above: Result Comment: CBC- COMPLETE BLOOD COUNT Performed By: #### 2 59613 #### [facility],[address] [place] [address] EO # 0.00 x10EE3/UL Normal 0.00 - 0.50 [facility] Comment on above: Performed By: #### 2 10285 #### [facility],[address] [place] [address] 47961 Eosinophils/100 WBC (Bld) 0.0 % Normal 0.0 - 7.0 [facility] Comment on above: Performed By: #### 2 73235 #### [facility],[address] [place], [place] [phone] Erythrocyte distribution width (RBC) [Ratio] 13.8 % Normal 12.0 - 15.6 [facility] Comment on above: Performed By: #### 2 94757 #### [facility],[address] [place] [address] Hematocrit (Bld) [Volume fraction] 38.5 % Normal 34.0 - 46.0 [facility] Comment on above: Performed By: #### 2 18260 #### [facility],[address] [place], [place] [phone] Hemoglobin (Bld) [Mass/Vol] 12.8 g/dL Normal 12.0 - 16.0 [facility] Comment on above: Performed By: #### 2 68605 #### [facility],[address] [place] [address] Lymph # 0.60 x10EE3/UL Low 0.80 - 2.80 [facility] Comment on above: Performed By: #### 2 77900 #### [facility],[address] [place] [address] Lymphocytes/100 WBC (Bld) 7.7 % Low 20.0 - 45.0 [facility] Comment on above: Performed By: #### 2 90339 #### [facility],[address] [place] [address] MANUAL DIFF N/A Normal [facility] Comment on above: Performed By: #### 2 32314 #### [facility],[address] [place] [address] MCH (RBC) [Entitic mass] 32 pg Normal 27 - 33 [facility] Comment on above: Performed By: #### 2 64962 #### [facility],[address] [place] [address] MCHC 33 X10 3 Normal 32 - 36 [facility] Comment on above: Performed By: #### 2 63030 #### [facility],[address] [place], [place] [phone] MCV (RBC) [Entitic vol] 95 fL Normal 80 - 99 [facility] Comment on above: Performed By: #### 2 99364 #### [facility],[address] [place], [place] [id number] [place] # 0.20 x10EE3/UL Normal 0.20 - 1.00 [facility] Comment on above: Performed By: #### 2 40851 #### [facility],[address],[place] [address] MONOS % 2.3 % Normal 0.0 - 10.0 [facility] Comment on above: Performed By: #### 2 91899 #### [facility],[address] [place] [address] 58303 Morphology Jorge (Bld) [Interp] N/A Normal [facility] Comment on above: Result Comment: {CD] Performed By: #### 2 85012 #### [facility],[address] [place] [address] 95795 Neut # 6.60 x10EE3/UL Normal 1.50 - 7.10 [facility] Comment on above: Performed By: #### 2 40636 #### [facility],[address] [place] [address] 95662 Neutrophils/100 WBC (Bld) 89.9 % High 46.0 - 76.0 [facility] Comment on above: Performed By: #### 2 83896 #### [facility],[address] [place], [place] [phone] PLATELET 266 x10EE3/UL Normal 150 - 450 [facility] Comment on above: Performed By: #### 2 98915 #### [facility],[address] [place] [address] 99753 Platelet mean volume (Bld) [Entitic vol] 7.3 fL Normal 6.6 - 10.5 [facility] Comment on above: Result Comment: AUTO MATED DIFFERENTIAL Performed By: #### 2 74860 #### [facility],[address] [place] [address] 71988 RBC 4.06 x 10EE6/UL Low 4.10 - 5.30 [facility] Comment on above: Performed By: #### 2 44926 #### [facility],[address] [place] [address] 20933 WBC 7.4 x 10EE3/UL Normal 4.5 - 10.8 [facility] Comment on above: Performed By: #### 2 22828 #### [facility],[address] [place] [address] CORONAVIRUS PCR - [facility] 03-31-2023 SARS-CoV-2 (COVID-19) RNA MUSTAPHA+probe Ql (Unsp spec) Negative Normal NORMAL: NEGATIVE [facility] Comment on above: Performed By: #### 2 23554 #### [facility],[address] [place] [address] SEND TO IC? NO Normal [facility] Comment on above: Result Comment: RESU LTS FAXED TO INFECTION CONTROL. SARS-CoV-2 THIS TEST IS BEING USED UNDER THE FDA EUA PROCEDURE. THIS ASSAY HAS BEEN VALIDATED IN THE [facility] FOR USE WITH NASOPHARYNGEAL SPECIMENS IN [facility]. INTERPRETIVE DATA LABORATORY TEST RESULTS SHOULD ALWAYS [...] PUBLIC HEALTH AUTHORITIES. Performed By: #### 2 06211 #### [facility],[address] [place] [address] TROPONIN I, HIGH SENSITIVITY on 03-31-2023 HS TROPONIN <4.0 Normal 0.0 - 51.4 [facility] Comment on above: Performed By: #### 2 08608 #### [facility],[address] [place] [address] HS TROPONIN <4.0 Normal 0.0 - 51.4 [facility] Comment on above: Performed By: #### 2 64331 #### [facility],[address] [place] [address] CBC + DIFFon 03-30-2023 Baso # 0.00 x10EE3/UL Normal 0.00 - 0.10 [facility] Comment on above: Performed By: #### 2 45337 #### [facility],[address] [place], [place] [phone] Basophils/100 WBC (Bld) 0.1 % Normal 0.0 - 2.0 [facility] Comment on above: Performed By: #### 2 31484 #### [facility],[address] [place] [address] CBC + DIFF Normal [facility] Comment on above: Result Comment: CBC- COMPLETE BLOOD COUNT Performed By: #### 2 71861 #### [facility],[address] [place] [address] EO # 0.00 x10EE3/UL Normal 0.00 - 0.50 [facility] Comment on above: Performed By: #### 2 91811 #### [facility],[address] [place], [place] [phone] Eosinophils/100 WBC (Bld) 0.0 % Normal 0.0 - 7.0 [facility] Comment on above: Performed By: #### 2 50795 #### [facility],[address] [place] [address] Erythrocyte distribution width (RBC) [Ratio] 13.5 % Normal 12.0 - 15.6 [facility] Comment on above: Performed By: #### 2 69899 #### [facility],[address] [place] [address] 62287 Hematocrit (Bld) [Volume fraction] 40.8 % Normal 34.0 - 46.0 [facility] Comment on above: Performed By: #### 2 92744 #### [facility],[address] [place] [address] 54034 Hemoglobin (Bld) [Mass/Vol] 13.3 g/dL Normal 12.0 - 16.0 [facility] Comment on above: Performed By: #### 2 05377 #### [facility],[address] [place] [address] Lymph # 0.50 x10EE3/UL Low 0.80 - 2.80 [facility] Comment on above: Performed By: #### 2 91140 #### [facility],[address] [place], [place] [phone] Lymphocytes/100 WBC (Bld) 4.3 % Low 20.0 - 45.0 [facility] Comment on above: Performed By: #### 2 45471 #### [facility],[address] [place] [address] 12623 MANUAL DIFF N/A Normal [facility] Comment on above: Performed By: #### 2 97397 #### [facility],[address] [place], [place] [phone] MCH (RBC) [Entitic mass] 31 pg Normal 27 - 33 [facility] Comment on above: Performed By: #### 2 96296 #### [facility],[address] [place] [address] 38783 MCHC 33 X10 3 Normal 32 - 36 [facility] Comment on above: Performed By: #### 2 73709 #### [facility],[address] [place] [address] 95691 MCV (RBC) [Entitic vol] 95 fL Normal 80 - 99 [facility] Comment on above: Performed By: #### 2 88573 #### [facility],[address] [place] [address] [place] # 0.60 x10EE3/UL Normal 0.20 - 1.00 [facility] Comment on above: Performed By: #### 2 63118 #### [facility],[address] [place] [address] 36980 MONOS % 5.3 % Normal 0.0 - 10.0 [facility] Comment on above: Performed By: #### 2 05649 #### [facility],[address] [place] [address] 20576 Morphology Jorge (Bld) [Interp] N/A Normal [facility] Comment on above: Result Comment: {CD] Performed By: #### 2 19502 #### [facility],[address] [place] [address] 63290 Neut # 9.70 x10EE3/UL High 1.50 - 7.10 [facility] Comment on above: Performed By: #### 2 65442 #### [facility],[address] [place] [address] 10834 Neutrophils/100 WBC (Bld) 90.3 % High 46.0 - 76.0 [facility] Comment on above: Performed By: #### 2 14660 #### [facility],[address] [place] [address] 21062 PLATELET 304 x10EE3/UL Normal 150 - 450 [facility] Comment on above: Performed By: #### 2 19098 #### [facility],[address] [place] [address] 10569 Platelet mean volume (Bld) [Entitic vol] 7.2 fL Normal 6.6 - 10.5 [facility] Comment on above: Result Comment: AUTO MATED DIFFERENTIAL Performed By: #### 2 13811 #### [facility],[address] [place] [address] 15492 RBC 4.31 x 10EE6/UL Normal 4.10 - 5.30 [facility] Comment on above: Performed By: #### 2 64970 #### [facility],[address] [place] [address] 52948 WBC 10.8 x 10EE3/UL Normal 4.5 - 10.8 [facility] Comment on above: Performed By: #### 2 17629 #### [facility],[address] [place] [address] 71609 CMP with eGFRon 03-30-2023 AGE 63 years Normal [facility] Comment on above: Performed By: #### 2 88253 #### [facility],[address] [place] [address] 47015 Albumin [Mass/Vol] 3.9 g/dL Normal 3.4 - 5.0 [facility] Comment on above: Performed By: #### 2 06677 #### [facility],[address] [place], [place] [address] Albumin/Globulin [Mass ratio] 1.3 {ratio} Normal 0.9 - 1.6 [facility] Comment on above: Performed By: #### 2 97562 #### [facility],[address] [place] [address] 98550 ALK PHOS 70 U/L Normal 46 - 116 [facility] Comment on above: Performed By: #### 2 12344 #### [facility],[address] [place] [address] 83576 ALT [Catalytic activity/Vol] 27 U/L Normal 14 - 59 [facility] Comment on above: Performed By: #### 2 88334 #### [facility],[address] [place] [address] 13422 Anion gap [Moles/Vol] 12 mmol/L Normal 10 - 20 [facility] Comment on above: Performed By: #### 2 19425 #### [facility],[address] [place] [address] 81656 AST [Catalytic activity/Vol] 14 U/L Normal 13 - 39 [facility] Comment on above: Performed By: #### 2 88375 #### [facility],[address] [place] [address] 73195 B/C RATIO 21 ratio Normal 0 - 30 [facility] Comment on above: Performed By: #### 2 53756 #### [facility],[address] [place] [address] 19418 Bilirubin [Mass/Vol] 0.2 mg/dL Normal 0.2 - 1.0 [facility] Comment on above: Performed By: #### 2 44287 #### [facility],[address] [place], [place] [id number] Calcium [Mass/Vol] 8.8 mg/dL Normal 8.5 - 10.1 [facility] Comment on above: Performed By: #### 2 26190 #### [facility],[address] [place], [place] [address] Chloride [Moles/Vol] 100 mmol/L Normal 98 - 107 [facility] Comment on above: Performed By: #### 2 76343 #### [facility],[address] [place] [address] 27558 CMP with eGFR Normal [facility] Comment on above: Result Comment: COMP REHENSIVE METABOLIC PANEL Performed By: #### 2 61168 #### [facility],[address] [place] [address] 72535 CO2 [Moles/Vol] 29.4 mmol/L Normal 21.0 - 32.0 [facility] Comment on above: Performed By: #### 2 83945 #### [facility],[address] [place] [address] 34102 Creatinine [Mass/Vol] 0.85 mg/dL Normal 0.55 - 1.02 [facility] Comment on above: Performed By: #### 2 73436 #### [facility],[address] [place] [address] 16577 GFR/1.73 sq M.predicted among non-blacks MDRD (S/P/Bld) [Vol rate/Area] mL/min/{1.73_m2} Normal 60 - 999 [facility] Comment on above: Performed By: #### 2 65803 #### [facility],[address] [place] [address] Result Comment: ACCO RDING TO THE NATIONAL KIDNEY DISEASE EDUCATION PROGRAM(NKDE), A NORMAL eGFR IS A VALUE GREATER THAN OR EQUAL TO 60 ML/MIN/1.73 SQ METERS. CHRONIC KIDNEY DISEASE: <60mL/MIN/1.73 SQ METERS KIDNEY FAILURE: <15mL/MIN/1.73 SQ METERS THIS TEST SHOULD ONLY BE USED FOR PATIENTS 18 YEARS OF AGE AND OLDER. Globulin (S) [Mass/Vol] 3.1 g/dL Normal 1.5 - 3.8 [facility] Comment on above: Performed By: #### 2 45539 #### [facility],[address] [place] [address] 67824 Glucose [Mass/Vol] 117 mg/dL High 74 - 106 [facility] Comment on above: Performed By: #### 2 99007 #### [facility],[address] [place] [address] 49085 Potassium [Moles/Vol] 4.7 mmol/L Normal 3.5 - 5.1 [facility] Comment on above: Performed By: #### 2 73944 #### [facility],[address] [place] [address] 77853 Protein [Mass/Vol] 7.0 g/dL Normal 6.4 - 8.2 [facility] Comment on above: Performed By: #### 2 53275 #### [facility],[address] [place] [address] 59476 Sodium [Moles/Vol] 137 mmol/L Normal 136 - 145 [facility] Comment on above: Performed By: #### 2 22286 #### [facility],[address] [place] [address] 43005 Urea nitrogen [Mass/Vol] 18 mg/dL Normal 7 - 18 [facility] Comment on above: Performed By: #### 2 23867 #### [facility],[address] [place] [address] 65885 CORONAVIRUS (SARS) ANTIGEN T ESTon 03-30-2023 EXTERNAL QC DONE? YES Normal [facility] Comment on above: Performed By: #### 2 12393 #### [facility],[address] [place] [address] INTERNAL CONTROL PASS Normal [facility] Comment on above: Performed By: #### 2 12648 #### [facility],[address] [place] [address] 01729 SARS ANTIGEN Negative Normal NORMAL: NEGATIVE [facility] Comment on above: Performed By: #### 2 21709 #### [facility],[address] [place], [place] [address] SEND TO ? YES Normal [facility] Comment on above: Result Comment: SARS -CoV-2 THIS TEST IS BEING USED UNDER THE FDA EUA PROCEDURE. THIS ASSAY HAS BEEN VALIDATED AT FOR USE WITH NASAL AND NASOPHARYNGEAL SWAB [...] PUBLIC HEALTH AUTHORITIES. Performed By: #### 2 94253 #### [facility],[address] [place] [address] CT CHEST (PE PROTOCOL)on CT CHEST (PE PROTOCOL) [place] [address] Patient: VIOLETTA LINDER Phone#: : 1960 Age: 63 Gender: F Pt. Type: ER Account: [id number] Location: [facility] Ordering: TARA LEON Exam Date: 03/30/2023/16:35 Family Phys: EDYTA NICHOLE Charge Code: 100928 Physician: Schleicher Order #: [id number] Dose#: 4.2 mGy PROCEDURE: CT CHEST WITH [...] evidence of pulmonary embolus. Dictated by: Denise Gneao MD on 03/30/2023 at 17:04 Continued Report - Page 2 of 2 Patient: VIOLETTA LINDER Phone#: : 1960 Age: 63 Gender: F Pt. Type: ER Account: [id number] Location: [facility] Ordering: TARA LEON Exam Date: 03/30/2023/16:35 Family Phys: EDYTA NICHOLE Charge Code: 762717 Physician: Schleicher Order #: [id number] Dose#: 4.2 mGy Approved by: Denise Genao MD on 03/30/2023 at 17:08 Normal [facility] LACTATEon 03-30-2023 Lactate [Moles/Vol] 2.0 mmol/L Normal 0.4 - 2.0 [facility] Comment on above: Performed By: #### 2 56356 #### [facility],[address] [place] [address] 54317 Lactate [Moles/Vol] 2.3 mmol/L High 0.4 - 2.0 [facility] Comment on above: Result Comment: LACT ATE 3 HR NOTIFIED TO: YOVANY/NICA_[id number] 03/30/23.JLN. . . LACTATE 3 HR NOTIFIED BY: _NICA 03/30/23.JLN. . . Performed By: #### 2 57259 #### [facility],[address] [place] [address] TROPONIN I, HIGH SENSITIVITY on 03-30-2023 HS TROPONIN 4.0 pg/mL Normal 0.0 - 51.4 [facility] Comment on above: Performed By: #### 2 74856 #### [facility],[address] [place] [address] HS TROPONIN <4.0 Normal 0.0 - 51.4 [facility] Comment on above: Performed By: #### 2 22302 #### [facility],[address] [place] [address] Absolute lymphocyte countOrd ered By: Dr. Rojas on 12-30-2022 Lymphocytes Auto (Unsp spec) [#/Vol] 1.40 10*3/uL 0.83-4.51 [facility] Basophil percentageOrdered B y: Dr. Rojas on 12-30-2022 Basophils/100 WBC (Bld) 0.8 % 0-1 [facility] Chloride [Moles/Vol] 106 mmol/L 98-107 [facility] Eosinophils/100 WBC (Bld) 1.9 % 0-5 [facility] Glucose [Mass/Vol] 88 mg/dL 74-106 [facility] Neutrophils (Bld) [#/Vol] 4.1 10*3/uL 2.0-7.7 [facility] Neutrophils/100 WBC (Bld) 64.3 % 47-70 [facility] Potassium [Moles/Vol] 4.3 mmol/L 3.5-5.[address] [facility] Sodium [Moles/Vol] 140 mmol/L 136-145 [facility] WBC (Bld) [#/Vol] 6.3 10*3/uL 4.4-11.0 [facility] Blood erythrocytes count (nu mber/volume)Ordered By: Dr. Rojas on 12-30-2022 RBC (Bld) [#/Vol] 4.87 10*6/uL 4.2-5.4 [facility] Blood hemoglobin measurement (mass/volume)Ordered By: Dr. Rojas on 12-30-2022 Hemoglobin (Bld) [Mass/Vol] 14.9 g/dL 12.0-15.0 [facility] Blood lymphocytes/100 leukoc ytesOrdered By: Dr. Rojas on 12-30-2022 Lymphocytes/100 WBC (Bld) 22.2 % 19-41 [facility] Blood monocytes/100 leukocyt esOrdered By: Dr. Rojas on 12-30-2022 Monocytes/100 WBC (Bld) 10.5 % 0-10 [facility] Blood platelet mean volumeOr dered By: Dr. Rojas on 12-30-2022 Platelet mean volume (Bld) [Entitic vol] 9.2 fL 6.2-12.0 [facility] Determination of erythrocyte mean corpuscular volume (MCV)Ordered By: Dr. Rojas on 12-30-2022 MCV (RBC) [Entitic vol] 92.8 fL 81-99 [facility] Hematocrit Auto (Bld) [Volum e fraction]Ordered By: Dr. Rojas on 12-30-2022 Hematocrit (Bld) [Volume fraction] 45.2 % 37-47 [facility] INR in Blood by Coagulation assayOrdered By: Dr. Rojas on 12-30-2022 INR Coag (Bld) [Relative time] 1.0 {INR} [facility] Laboratory - Chemistry and C hemistry - challengeOrdered By: Dr. Rojas on 12-30-2022 CO2 [Moles/Vol] 30.0 mmol/L 21.0-32.0 [facility] Urea nitrogen/Creatinine [Mass ratio] 21.6 mg/mg 05-01 [facility] Laboratory - CoagulationOrde red By: Dr. Rojas on 12-30-2022 aPTT Coag (Bld) [Time] 27.0 s 24.1-36.2 [facility] PT Coag (PPP) [Time] 12.8 s 11.7-14.9 [facility] Laboratory - Hematology and Cell countsOrdered By: Dr. Rojas on 12-30-2022 Erythrocyte distribution width (RBC) [Entitic vol] 45.3 fL 35.1-43.9 [facility] Erythrocyte distribution width (RBC) [Ratio] 13.3 % 11.6-14.6 [facility] Immature granulocytes/100 WBC (Bld) 0.300 % 0.0-0.9 [facility] Comment on above: IG% - Immature Granu locytes (promyelocytes, myelocytes and metamyelocytes) > 1% indicates that a LEFT SHIFT is Present. MCH (RBC) [Entitic mass] 30.6 pg 27.0-32.0 [facility] Nucleated RBC/100 WBC (Bld) [Ratio] 0 % 0-5 [facility] MCHC Auto (RBC) [Mass/Vol]Or dered By: Dr. Rojas on 12-30-2022 MCHC (RBC) [Mass/Vol] 33.0 g/dL 32-[address] [facility] No Panel InformationOrdered By: Dr. Rojas on 12-30-2022 Estimated GFR (MDRD) Amer 130 mL/min >60 [facility] Comment on above: GFR Calc Estimated GFR (MDRD) Non-Af Amer 107 mL/min >60 [facility] Comment on above: Non- GFR Calc Platelets bldOrdered By: Dr. Rojas on 12-30-2022 Platelets (Bld) [#/Vol] 278 10*3/uL 150-450 [facility] Serum or plasma calcium rosibel urement (mass/volume)Ordered By: Dr. Rojas on 12-30-2022 Calcium [Mass/Vol] 8.7 mg/dL 8.5-10.1 [facility] Serum or plasma creatinine m easurement (mass/volume)Ordered By: Dr. Rojas on 12-30-2022 Creatinine [Mass/Vol] 0.60 mg/dL 0.55-1.[address] [facility] Comment on above: The validity of the calculated GFR & GFRAA in patients over 70 years has not been determined. Clinical correlation is essential. Serum or plasma urea nitroge n measurement (mass/volume)Ordered By: Dr. Rojas on 12-30-2022 Urea nitrogen [Mass/Vol] 13 mg/dL 7-18 [facility] Thin prep Papanicolaou smear with manual screeningOrdered By: Dr. Rojas on 12-30-2022 Thin prep Papanicolaou smear with manual screening 4 5-15 [facility] Base excessOrdered By: Dr. Mikey bowser on 09-30-2022 Base excess Calc (BldV) [Moles/Vol] 4 mmol/L -2-2 [facility] Basophil percentageOrdered B y: Dr. Ruiz on 09-30-2022 Basophil percentage 28.1 mmol/L 22-26 [facility] Basophils/100 WBC (Bld) 95 % 95-99 [facility] CO2 (BldA) [Partial pressure ]Ordered By: Dr. Ruiz on 09-30-2022 CO2 (Bld) [Partial pressure] 41.9 mm[Hg] 35-45 [facility] No Panel InformationOrdered By: Dr. Ruiz on 09-30-2022 Blood Gas Sample Site R Brach [facility] Blood Gas Specimen Type ART [facility] Blood Gas Total CO2 29 mmol/L [facility] Oxygen Delivery Device Room Air [facility] Oxygen (BldA) [Partial press ure]Ordered By: Dr. Ruiz on 09-30-2022 Oxygen (Bld) [Partial pressure] 71 mmHG 75-100 [facility] pH measurementOrdered By: Dr Anand Ruiz on 09-30-2022 pH (Unsp spec) 7.43 [pH] 7.35-7.45 [facility] Final Surgical Pathology Rep [facility] 01-10-2022 Final Surgical Pathology Report . Pathology Reports Accession: Collected Date/Time: Received Date/Time: Pathologist: [id number] 01/09/2022 09:53 EDT 01/09/2022 14:14 EDT CANDIE [...] Electronically Signed by Pathology Report verified by [facility] Electronically signed by CANDIE SOTO Sign out Date: 01/10/2022 14:55 Performing Lab: [facility], [address] [place] [address] ([place]) HepB SurfaceAb,Quanton 11-29 HepB SurfaceAb,Quant 86.98 mIU/mL High <8.00 [facility] Reference Lab Comment on above: Performed By: #### M EASLG, AHBSQ, MUMPSG, RUBIGG #### [facility] Routine Lab [address] [place] [id number] Measles IgG Antibodyon 11-29 Measles IgG Ab, Qual Abnormal Negative [facility] Comment on above: Result Comment: Posi tive Presence of detectable measles virus IgG antibodies. A positive result generally indicates exposure to measles virus or previous vaccination. Performed By: #### M EASLG, AHBSQ, MUMPSG, RUBIGG #### [facility] Routine Lab [address] [place] [address] Measles IgG Antibody Normal [facility] Comment on above: Result Comment: >300 [...] #### M EASLG, AHBSQ, MUMPSG, RUBIGG #### [facility] Routine Lab [address] [place] [id number] Mumps IgG Abon 11-29-2020 Mumps IgG Ab >300.0 Normal [facility] Reference Lab Comment on above: Performed By: #### M EASLG, AHBSQ, MUMPSG, RUBIGG #### [facility] Routine Lab [address] [place] [address] Mumps IgG, Qual Positive Abnormal Negative [facility] Reference Lab Comment on above: Performed By: #### M EASLG, AHBSQ, MUMPSG, RUBIGG #### [facility] Routine Lab [address] [place] [address] Rubella IgG Antibodyon 11-29 Rubella IgG Ab 28.10 Index Value Normal [facility] Reference Lab Comment on above: Performed By: #### M EASLG, AHBSQ, MUMPSG, RUBIGG #### [facility] Routine Lab [address] [place] [address] Rubella IgG Ab, Qual Positive Abnormal Negative [facility] Reference Lab Comment on above: Performed By: #### M EASLG, AHBSQ, MUMPSG, RUBIGG #### [facility] Routine Lab [address] [place], [place] [address] Office Visit: COPDon 017 Protein mass conc Done Invalid Interpretation Code [facility] Work Phone: Protein mass conc yes Invalid Interpretation Code [facility] Work Phone: Tobacco smoking status [facility] Current every day smoker Invalid Interpretation Code [facility] Work Phone: Tobacco smoking status [facility] Never Invalid Interpretation Code [facility] Work Phone: CNOVon 04-17-2017 CNOV Office Visit ([facility]) ----VIOLETTA LINDER ([id number]) 1960 [facility] Time Provider Zthkaotsqp52/6/17 11:45 AM REHANA WOLFE (PA) [facility] During [...] sinusitis symptoms can include fever (temperature greater drdu630.4?F or 38?C), fatigue, cough, difficulty or inability [...] nasal sprays and irrigation kits can be ydoyofafppytb-osr-baolvaa. Saline mixes can also be purchased or [...] 04/17/2017 11:41 AM >> NATASHA MAZA MA [facility] Apr 17, 2017 11:41 AM Not usingProblem [...] sprays and irrigation kits can be purchased konk-euc-ylyfizt. Saline mixes can also be purchased or [...] needed. Disc: Course of therapy completedEncounter Number: [id number] Status:Closed by REHANA WOLFE on 04/17/17 [facility] PROGRESSon 04-17-2017 PROGRESS HNO ID: [id number] thor: Rehana Silverman (Brian) JaybaService: (none)Author Type: [...] symptoms persist or worsen.Rehana Wolfe PA-C Normal [facility] Office Visit: COPDon 017 Fall risk assessment No Invalid Interpretation Code [facility] Work Phone: Microbiology: Strep A (Throa t Rapid TANI)on 07-13-2016 STREP A (RAPID . Invalid Interpretation Code [facility] Mobile Phone: Office Visit: UC: Coughon S. pyogenes DNA MUSTAPHA+probe Ql (Throat) Negative Invalid Interpretation Code [facility] Mobile Phone: EKG Report: [facility] ECG Obse rvationson 11-27-2015 EKG QRS axis 89 deg Invalid Interpretation Code [facility] Work Phone: Interpretation Sinus Rhythm - Nonsp ecific T-abnormality. Low voltage -possible pulmonary disease. ABNORMAL Invalid Interpretation Code [facility] Mobile Phone: P Spring 70 deg Invalid Interpretation Code [facility] Work Phone: NM Interval 138 ms Invalid Interpretation Code [facility] Work Phone: QRS Duration 96 ms Invalid Interpretation Code [facility] Work Phone: QT Interval new path ms Invalid Interpretation Code [facility] Work Phone: T Spring 90 deg Invalid Interpretation Code [facility] Mobile Phone: Vital Signs Date Time Vital Sign Value Performing Clinician Facility 03-28-2025 08:48-0400 Body height 162.[address] Beata Schwarz MD Work Phone: [facility] 03-28-2025 08:48-0400 Body mass index (BMI) [Ratio] 25.4 kg/m2 Dr. Beata Schwarz MD Work Phone: [facility] 03-28-2025 08:48-0400 Body temperature 96.3 [degF] Dr. Beata Schwarz MD Work Phone: [facility] 03-28-2025 08:48-0400 Body weight 67.[address] Beata Schwarz MD Work Phone: [facility] 03-28-2025 08:48-0400 Diastolic blood pressure 76 mm[Hg] Dr. Beata Schwarz MD Work Phone: [facility] 03-28-2025 08:48-0400 Heart rate 76 /min Dr. Beata Schwarz MD Work Phone: [facility] 03-28-2025 08:48-0400 Respiratory rate 20 /min Dr. Beata Schwarz MD Work Phone: [facility] 03-28-2025 08:48-0400 SaO2% (BldA) [Mass fraction] 95 % Dr. Beata Schwarz MD Work Phone: [facility] 03-28-2025 08:48-0400 Systolic blood pressure 118 mm[Hg] Dr. Beata Schwarz MD Work Phone: [facility] 02-07-2025 07:23-0400 Body mass index (BMI) [Ratio] 25.7 kg/m2 Dr. Beata Schwarz MD Work Phone: [facility] 02-07-2025 07:23-0400 Body temperature 97.4 [degF] Dr. Beata Schwarz MD Work Phone: [facility] 02-07-2025 07:23-0400 Body weight 68.[address] Beata Schwarz MD Work Phone: [facility] 02-07-2025 07:23-0400 Diastolic blood pressure 78 mm[Hg] Dr. Beata Schwarz MD Work Phone: [facility] 02-07-2025 07:23-0400 Heart rate 76 /min Dr. Beata Schwarz MD Work Phone: [facility] 02-07-2025 07:23-0400 Respiratory rate 20 /min Dr. Beata Schwarz MD Work Phone: [facility] 02-07-2025 07:23-0400 SaO2% (BldA) [Mass fraction] 94 % Dr. Beata Schwarz MD Work Phone: [facility] 02-07-2025 07:23-0400 Systolic blood pressure 119 mm[Hg] Dr. Beata Schwarz MD Work Phone: [facility] 12-27-2024 10:06-0400 Body height 162.[address] Beata Schwarz MD Work Phone: [facility] 12-27-2024 07:28-0400 Body mass index (BMI) [Ratio] 25.7 kg/m2 Dr. Beata Schwarz MD Work Phone: [phone] [place] [address] 12-27-2024 07:28-0400 Body temperature 96 [degF] Dr. Beata Schwarz MD Work Phone: [facility] 12-27-2024 07:28-0400 Body weight 68.[address] Betaa Schwarz MD Work Phone: [facility] 12-27-2024 07:28-0400 Diastolic blood pressure 68 mm[Hg] Dr. Beata Schwarz MD Work Phone: [facility] 12-27-2024 07:28-0400 Heart rate 82 /min Dr. Beata Schwarz MD Work Phone: [facility] 12-27-2024 07:28-0400 Respiratory rate 20 /min Dr. Beata Schwarz MD Work Phone: [facility] 12-27-2024 07:28-0400 SaO2% (BldA) [Mass fraction] 95 % Dr. Beata Schwarz MD Work Phone: [facility] 12-27-2024 07:28-0400 Systolic blood pressure 103 mm[Hg] Dr. Beata Schwarz MD Work Phone: [facility] 11-14-2024 15:44-0400 Body height 162.[address] Beata Schwarz MD Work Phone: [facility] 08-20-2023 11:26-0500 Body temperature 98.1 [degF] Agatha Alejo MD Work Phone: [facility] 08-20-2023 11:26-0500 Diastolic blood pressure 58 mm[Hg] Agatha Alejo MD Work Phone: [facility] 08-20-2023 11:26-0500 Heart rate 85 /min Agatha Alejo MD Work Phone: [facility] 08-20-2023 11:26-0500 Respiratory rate 13 /min Agatha Alejo MD Work Phone: [facility] 08-20-2023 11:26-0500 SaO2% (BldA) [Mass fraction] 96 % Agatha Alejo MD Work Phone: [facility] 08-20-2023 11:26-0500 Systolic blood pressure 104 mm[Hg] Agatha Alejo MD Work Phone: [facility] 08-19-2023 09:50-0500 Body height 160 cm Agatha Alejo MD Work Phone: [facility] 08-19-2023 09:50-0500 Body mass index (BMI) [Ratio] 27.15 kg/m2 Agatha Alejo MD Work Phone: [facility] 08-19-2023 09:50-0500 Body weight 69.5 kg Agatha Alejo MD Work Phone: [facility] 01-02-2023 07:01-0400 Body height 162.[address] Edyta Nichole Work Phone: [facility] 01-02-2023 07:01-0400 Body weight 69.[address] Edyta Nichole Work Phone: [facility] 01-01-2023 08:13-0400 Body mass index (BMI) [Ratio] 26.4 kg/m2 Dr. Edyta Nichole Work Phone: [facility] 12-01-2022 15:16-0400 Body weight 69.[address] Edyta Nichole Work Phone: [facility] 12-01-2022 15:16-0400 Diastolic blood pressure 78 mm[Hg] Dr. Edyta Nichole Work Phone: [facility] 12-01-2022 15:16-0400 Heart rate 81 /min Dr. Edyta Nichole Work Phone: [facility] 12-01-2022 15:16-0400 Respiratory rate 26 /min Dr. Edyta Nichole Work Phone: [facility] 12-01-2022 15:16-0400 Systolic blood pressure 129 mm[Hg] Dr. Edyta Nichole Work Phone: [facility] 12-01-2022 08:34-0400 Body height 162.[address] Edyta Nichole Work Phone: [facility] 10-02-2022 07:42-0400 Body height 162.[address] Edyta Nichole Work Phone: [facility] 10-02-2022 07:42-0400 Body mass index (BMI) [Ratio] 26.4 kg/m2 Dr. Edyta Nichole Work Phone: [facility] 10-02-2022 07:42-0400 Body temperature 97.6 [degF] Dr. Edyta Nichole Work Phone: [facility] 10-02-2022 07:42-0400 Body weight 69.[address] Edyta Nichole Work Phone: [facility] 10-02-2022 07:42-0400 Diastolic blood pressure 68 mm[Hg] Dr. Edyta Nichole Work Phone: [facility] 10-02-2022 07:42-0400 Heart rate 70 /min Dr. Edyta Nichole Work Phone: [facility] 10-02-2022 07:42-0400 Respiratory rate 18 /min Dr. Edyta Nichole Work Phone: [facility] 10-02-2022 07:42-0400 SaO2% (BldA) [Mass fraction] 93 % Dr. Edyta Nichole Work Phone: [facility] 10-02-2022 07:42-0400 Systolic blood pressure 115 mm[Hg] Dr. Edyta Nichole Work Phone: [facility] 08-26-2022 11:11-0500 Body height 162.[address] Edyta Nichole Work Phone: [facility] 08-26-2022 11:04-0500 Body mass index (BMI) [Ratio] 25.7 kg/m2 Dr. Edyta Nichole Work Phone: [facility] 08-26-2022 11:04-0500 Body temperature 97.6 [degF] Dr. Edyta Nichole Work Phone: [facility] 08-26-2022 11:04-0500 Body weight 68.[address] Edyta Nichole Work Phone: [facility] 08-26-2022 11:04-0500 Diastolic blood pressure 76 mm[Hg] Dr. Edyta Nichole Work Phone: [facility] 08-26-2022 11:04-0500 Heart rate 77 /min Dr. Edyta Nichole Work Phone: [facility] 08-26-2022 11:04-0500 Respiratory rate 18 /min Dr. Edyta Nichole Work Phone: [facility] 08-26-2022 11:04-0500 SaO2% (BldA) [Mass fraction] 96 % Dr. Edyta Nichole Work Phone: [facility] 08-26-2022 11:04-0500 Systolic blood pressure 113 mm[Hg] Dr. Edyta Nichole Work Phone: [facility] 07-23-2022 12:47-0500 Body height 162.[address] Edyta Nichole Work Phone: [facility] 07-23-2022 12:47-0500 Body weight 70.[address] Edyta Nichole Work Phone: [facility] 07-23-2022 12:47-0500 Heart rate 75 /min Dr. Edyta Nichole Work Phone: [facility] 07-23-2022 12:47-0500 SaO2% (BldA) [Mass fraction] 96 % Dr. Edyta Nichole Work Phone: [facility] 07-22-2022 08:01-0500 Body mass index (BMI) [Ratio] 27 kg/m2 Dr. Edyta Nichole Work Phone: [facility] 07-22-2022 08:01-0500 Body temperature 97.7 [degF] Dr. Edyta Nichole Work Phone: [facility] 07-22-2022 08:01-0500 Body weight 70.[address] Edyta Nichole Work Phone: [facility] 07-22-2022 08:01-0500 Diastolic blood pressure 77 mm[Hg] Dr. Edyta Nichole Work Phone: [facility] 07-22-2022 08:01-0500 Heart rate 78 /min Dr. Edyta Nichole Work Phone: [facility] 07-22-2022 08:01-0500 Respiratory rate 20 /min Dr. Edyta Nichole Work Phone: [facility] 07-22-2022 08:01-0500 SaO2% (BldA) [Mass fraction] 95 % Dr. Edyta Nichole Work Phone: [facility] 07-22-2022 08:01-0500 Systolic blood pressure 118 mm[Hg] Dr. Edyta Nichole Work Phone: [facility] 03-05-2022 10:38-0400 Body height 161.[address] Edyta Nichole Work Phone: [facility] Work Phone: 03-05-2022 10:30-0400 Body mass index (BMI) [Ratio] 26.2 kg/m2 Dr. Edyta Nichole Work Phone: [facility] Work Phone: 03-05-2022 10:30-0400 Body temperature 96.9 [degF] Dr. Edyta Nichole Work Phone: [facility] Work Phone: 03-05-2022 10:30-0400 Body weight 68.[address] Edyta Nichole Work Phone: [facility] Work Phone: 03-05-2022 10:30-0400 Diastolic blood pressure 72 mm[Hg] Dr. Edyta Nichole Work Phone: [facility] Work Phone: 03-05-2022 10:30-0400 Heart rate 90 /min Dr. Edyta Nichole Work Phone: [facility] Work Phone: 03-05-2022 10:30-0400 Respiratory rate 16 /min Dr. Edyta Nichole Work Phone: [facility] Work Phone: 03-05-2022 10:30-0400 SaO2% (BldA) [Mass fraction] 93 % Dr. Edyta Nichole Work Phone: [facility] Work Phone: 03-05-2022 10:30-0400 Systolic blood pressure 109 mm[Hg] Dr. Edyta Nichole Work Phone: [facility] Work Phone: 04-22-2017 05:44-0400 BMI (Body Mass Index) 29.46 kg/m2 Carol Casillas CNP [facility] Work Phone: 04-22-2017 05:44-0400 Body Temperature 97.6 [degF] Carol Casillas CNP [facility] Work Phone: 04-22-2017 05:44-0400 BP Diastolic 86 mm[Hg] Carol Casillas ORGANIZATIONAL DEVELOPMENT MANAGER [facility] Work Phone: 04-22-2017 05:44-0400 BP Systolic 129 mm[Hg] Carol Casillas CNP [facility] Work Phone: 04-22-2017 05:44-0400 Height 161.29 cm Carol Casillas CNP [facility] Work Phone: 04-22-2017 05:44-0400 Pulse (Heart Rate) 76 /min Carol Casillas CNP [facility] Work Phone: 04-22-2017 05:44-0400 Respiratory Rate 18 /min Carol Casillas ORGANIZATIONAL DEVELOPMENT MANAGER [facility] Work Phone: 04-22-2017 05:44-0400 Weight 76.66 kg Carol Casillas CNP [facility] Work Phone: 07-10-2016 11:57-0500 BSA (Body Surface Area) 1.79 m2 Carol Casillas CNP [facility] Work Phone: 02-28-2016 07:54-0400 Body Temperature 96.44 [degF] Carol Casillas ORGANIZATIONAL DEVELOPMENT MANAGER [facility] Work Phone: 02-28-2016 07:54-0400 Height 161.29 cm Carol Casillas CNP [facility] Work Phone: 02-28-2016 07:54-0400 Weight 75.45 kg Carol Casillas CNP [facility] Work Phone: 11-27-2015 15:20-0400 Heart rate 62 /min Carol Casillas CNP [facility] Work Phone: Encounters Encounter Date Encounter Type Care Provider Facility Start: 03-28-2025 End: 03-28-2025 Patient encounter procedure [facility]: Start: 03-28-2025 End: 03-28-[address] Beata Schwarz MD Work Phone: [facility] Pulmonary [facility] Start: 03-21-2025 End: 03-21-2025 Patient encounter procedure EYELET RIVETER Sandra Soriano -[facility] [place] Work Phone: Start: 03-21-2025 End: 03-21-2025 ambulatory Beata Schwarz Facility:[facility] Start: 02-07-2025 End: 02-07-2025 Patient encounter [facility]: Start: 02-07-2025 End: 02-07-[address] Beata Schwarz MD Work Phone: [facility] Start: 12-27-2024 End: 12-27-[address] Beata Schwarz MD Work Phone: [facility] Work Phone: Start: 12-27-2024 End: 12-27-2024 Patient encounter procedure [facility] Work Phone: Start: 12-27-2024 End: 12-27-2024 Patient encounter procedure [facility] Work [facility]: Start: 12-27-2024 End: 12-27-[address] Beata Schwarz MD Work Phone: [facility] Work Phone: Start: 12-27-2024 End: 12-27-2024 ambulatory Beata Schwarz Facility:[facility] Start: 11-14-2024 End: 11-14-[address] Washington Rojas MD -[facility] Start: 11-14-2024 End: 11-14-2024 ambulatory Washington Rojas Facility:[facility] Start: 10-21-2024 End: 10-21-[address] Beata Schwarz MD Work Phone: [facility] Work Phone: Start: 10-21-2024 End: 10-21-2024 Patient encounter procedure Micki Laird EYELET RIVETER-C -Laboratory, Neil Desai [facility] Start: 10-21-2024 End: 10-21-2024 ambulatory Micki Laird Facility:[facility] Start: 06-24-2024 End: 06-24-2024 ambulatory Edyta Floteddy Facility:[facility] Start: 06-16-2024 End: 06-16-2024 ambulatory Carol Casillas NP Facility:[facility] Start: 06-01-2024 Encounter for genera l adult medical examination without abnormal findings [facility] Start: 06-01-2024 End: 06-01-2024 ambulatory [facility] Facility:[facility] Start: 05-10-2024 End: 05-10-2024 ambulatory [facility] Facility:[facility] Start: 10-14-2023 End: 10-14-2023 Emergency department patient visit TARA LEON [facility] Start: 08-19-2023 End: 08-20-2023 Unknown [facility] Start: 08-19-2023 End: 08-20-2023 Subsequent hospital visit by physician Agatha Alejo MD Work Phone: [facility] Surgical Progressive Care Unit PCU H6 Comment on above: Spinal stenosis (Leda shanti Dx) Start: 08-12-2023 End: 08-12-2023 ambulatory [facility] Start: 08-12-2023 End: 08-12-2023 Encounter for other preprocedural examination [facility] Start: 07-06-2023 End: 07-06-2023 Emergency department patient visit ANDREWS LOMAS [facility] Start: 05-15-2023 End: 05-15-2023 ambulatory BEATA SCHWARZ [facility] Start: 03-30-2023 End: 03-31-2023 ambulatory EDYTAMikey FOSTER [facility] Start: 01-02-2023 End: 01-02-2023 Admission to same day surgery center Dr. Edyta Nichole Work Phone: [facility]-Radio Repairman/Special Procedures Start: 01-02-2023 End: 01-02-[address] Edyta Nichole Work Phone: [facility] Work Phone: Start: 12-26-2022 Non-patient / Non-visit Dr. Bruna Nichole Work Phone: [facility] Start: 12-22-2022 Non-patient / Non-visit Dr. Bruna Nichole Work Phone: [facility] Start: 12-19-2022 Non-patient / Non-visit Dr. Bruna Nichole Work Phone: [facility] Start: 12-19-2022 End: 12-19-[address] Edyta Nichole Work Phone: [facility] Start: 12-16-2022 Non-patient / Non-visit Dr. Bruna Nichole Work Phone: [facility] Start: 12-16-2022 End: 12-16-[address] Edyta Nichole Work Phone: [facility] Work Phone: Start: 12-16-2022 End: 12-16-[address] [facility] Start: 12-01-2022 End: 12-01-[address] Edyta Nichole Work Phone: [facility] Start: 11-05-2022 End: 11-05-[address] Edyta Nichole Work Phone: [facility] Work Phone: Start: 11-05-2022 End: 11-05-[address] Edyta Nichole Work Phone: [facility] Start: 10-02-2022 End: 10-02-[address] Edyta Nichole Work Phone: [facility] Start: 09-30-2022 End: 09-30-[address] Edyta Nichole Work Phone: [facility] Work Phone: Start: 09-30-2022 End: 09-30-[address] Edyta Nichole Work Phone: [facility]-Pulmonary Services/Neurology Start: 08-26-2022 End: 08-26-[address] Edyta Nichole Work Phone: [facility] Start: 08-21-2022 Non-patient / Non-visit Dr. Bruna Nichole Work Phone: [facility] Start: 08-19-2022 End: 08-19-[address] Edyta Nichole Work Phone: [facility] Work Phone: Start: 08-19-2022 End: 08-19-[address] Ed[facility] Nichole [facility] Start: 07-24-2022 Non-patient / Non-visit Dr. Bruna Nichole Work Phone: [facility] Start: 07-23-2022 End: 07-23-[address] Edyta Nichole Work Phone: [facility] Work Phone: Start: 07-23-2022 End: 07-23-[address] Edyta Nichole Work Phone: [facility]-Pulmonary Services/Neurology Start: 07-22-2022 End: 07-22-[address] Edyta Nichole [facility] Start: 05-14-2022 End: 05-14-[address] Edyta Nichole Work Phone: [facility] Work Phone: Start: 05-14-2022 End: 05-14-[address] Edyta Nichole Work Phone: [facility] Start: 03-05-2022 End: 03-05-[address] Edyta Nichole [facility] Start: 04-17-2017 End: 04-21-2017 [facility] Procedures Date Procedure Procedure Detail Performing Clinician Start: 12-27-2024 Gram stain microscopy D sreekanth Schwarz MD Work Phone: Start: 12-27-2024 [address] l culture Dr. Beaat Schwarz MD Work Phone: Start: 12-27-2024 X-ray [...] Start: 09-26-2016 End: 10-22-2016 BWA Carol Nicholas EYELET RIVETER Work Phone: Start: 09-26-2016 End: 10-22-2016 Follow Up Appt 1 month Carol Flores r ORGANIZATIONAL DEVELOPMENT MANAGER Work Phone: Start: 09-26-2016 End: 10-22-2016 Pulmonary Function Test - complete Carol Casillas ORGANIZATIONAL DEVELOPMENT MANAGER Work Phone: Start: 09-26-2016 End: 10-22-2016 Pulmonary stress test/simple Carol Casillas ORGANIZATIONAL DEVELOPMENT MANAGER Work Phone: Start: 07-10-2016 End: 07-14-2016 [facility] streptococcus group a Eddie Blank PA Work Phone: Start: 02-28-2016 End: 10-22-2016 BWMikey Casillas C EYELET RIVETER Work Phone: Start: 02-28-2016 End: 10-22-2016 Follow Up Appt 3 months Carol Avelar er ORGANIZATIONAL DEVELOPMENT MANAGER Work Phone: Start: 02-28-2016 End: 10-22-2016 Pulmonary Function Test - complete Carol Casillas ORGANIZATIONAL DEVELOPMENT MANAGER Work Phone: Start: 02-28-2016 End: 10-22-2016 Pulmonary [...] DTaP/Tdap/Td Vaccines (2 - Td or Tdap) [facility] Start: 12-27-2024 X-ray of chest, PA and lateral views Chest PA and Lateral [facility] Start: 12-27-2024 XR Chest PA and Lateral [facility] Start: 03-13-2023 COVID-19 Vaccine ( season) COVID-19 Vaccine ( season) [facility] Start: 03-13-2023 Influenza vaccination Influenza Vaccine (#1) [facility] Start: 10-02-2022 Patient referral [facility] Work Phone: Start: 2021 RSV Immunization aged 60 or older (1 - 1-dose 60+ series) RSV Immunization aged 60 or older (1 - 1-dose 60+ series) [facility] Start: 01-23-2020 Screening for malignant neoplasm of breast Mammogram [facility] Start: 04-22-2017 End: 04-22-2017 ROSA M Mikey [facility] Work Phone: Start: 04-22-2017 End: 04-22-2017 Follow Up Appt 6 months Follow Up Appt 6 months [facility] Work Phone: Start: 11-03-2016 End: 11-03-2016 [facility] Work Phone: Start: 11-03-2016 End: 11-03-2016 Follow Up Appt 6 months Follow Up Appt 6 months [facility] Work Phone: Start: 09-26-2016 End: 10-22-2016 [facility] Work Phone: Start: 09-26-2016 End: 10-22-2016 Follow Up Appt 1 month Follow Up Appt 1 month [facility] Work Phone: Start: 09-26-2016 End: 10-22-2016 Pulmonary Function Test - complete Pulmonary Function Test - complete [facility] Work Phone: Start: 09-26-2016 End: 10-22-2016 Pulmonary stress test/simple Pulmonary stress testing; simple (eg, 6-minute walk) [facility] Work Phone: Start: 07-10-2016 End: 07-10-2016 S. agalactiae DNA MUSTAPHA+probe Ql (Unsp spec) *GBSD - Group B Strep, DNA by PCR [facility] Work Phone: Start: 02-28-2016 End: 10-22-2016 [facility] [place] Work Phone: Start: 02-28-2016 End: 10-22-2016 Follow Up Appt 3 months Follow Up Appt 3 months [facility] Work Phone: Start: 02-28-2016 End: 10-22-2016 Pulmonary Function Test - complete Pulmonary Function Test - complete [facility] Work Phone: Start: 02-28-2016 End: 10-22-2016 Pulmonary stress test/simple Pulmonary stress testing; simple (eg, 6-minute walk) [facility] Mobile Phone: Start: 02-11-2016 End: 11-27-2015 Pulmonary Function Test - complete Pulmonary Function Test - complete [facility] Mobile Phone: Start: 11-27-2015 End: 02-28-2016 [facility] Mobile Phone: Start: 11-27-2015 End: 11-27-2015 Ecg routine ecg w/least 12 lds w/i&r EKG (In office) [facility] Mobile Phone: Start: 11-27-2015 End: 02-28-2016 Follow Up Appt 3 months Follow Up Appt 3 months [facility] Mobile Phone: Start: 11-27-2015 End: 11-27-2015 Nuclear stress test -Lexiscan Nuclear stress test -Lexiscan [facility] Mobile Phone: Start: 10-31-2015 End: 10-31-2015 Other Referral Other Referral Jos Cantu DC, [facility], [address], [address], [place], [address] [facility] Mobile Phone: Start: 05-23-2015 End: 02-28-2016 Follow Up Appt 6 months Follow Up Appt 6 months [facility] [employer] Phone: Start: 01-16-2015 End: 02-28-2016 Complete sleep workup (PSG,CPAP as indicated) & Follow up Complete sleep workup (PSG,CPAP as indicated) & Follow up [facility] [employer] Phone: Start: 01-16-2015 End: 02-28-2016 Follow Up Appt 3 months Follow Up Appt 3 months [facility] [employer] Phone: Start: 01-16-2015 End: 02-28-2016 Pulmonary Function Test - complete Pulmonary Function Test - complete [facility] Phone: Start: 01-16-2015 End: 02-28-2016 Pulmonary stress test/simple Pulmonary stress testing; simple (eg, 6-minute walk) [facility] Work Phone: Start: 2011 Zoster Vaccines (1 of 2) Zoster Vaccines (1 of 2) [facility] Start: 1991 Screening for malignant neoplasm of cervix [facility] Start: 1982 Screening for malignant neoplasm of cervix Pap Smear [facility] Start: 1979 Diabetes mellitus screening Diabetes Screening [facility] Start: 1979 Hepatitis C screening Hepatitis C Screening [facility] Start: 1973 Depression Screening Depression Screening [facility] Start: 1967 Pneumococcal Vaccine: Pediatrics (0 to 5 Years) and At-Risk Patients (6 to 64 Years) (1 of 2 - PCV) Pneumococcal Vaccine: Pediatrics (0 to 5 Years) and At-Risk Patients (6 to 64 Years) (1 of 2 - PCV) [facility] Start: 1962 MMR Vaccines (1 of 1 - Standard series) MMR Vaccines (1 of 1 - Standard series) [facility] Start: 1961 HIV screening HIV Screening [facility] Start: 1961 Lipid panel Lipid Panel [facility] Start: 1961 Screening for malignant neoplasm of colon [facility] Bacteria identified in Sputum by Culture [facility] CBC W Auto Different ial panel - Blood [facility] CT Chest [facility] Measurement of respiratory function [facility] Patient referral [facility] Work Phone: Procedure [facility] Immunizations Immunization Date Immunization Notes Care Provider Fa cility 03-28-2025 influenza, injectabl e, madin christina canine kidney, preservative free Dr. Beata Schwarz MD Work Phone: [facility] 05-09-2021 influenza virus vaccine, unspecified formulation Agatha Alejo MD Work Phone: [facility] 05-12-2016 influenza, injectabl e, quadrivalent, preservative free Dr. Beata Schwarz MD Work Phone: [facility] 05-12-2016 influenza, seasonal, injectable Dr. Edyta Nichole Work Phone: [facility] 06-25-2015 influenza, injectabl e, quadrivalent, preservative free Dr. Beata Schwarz MD Work Phone: [facility] 06-25-2015 influenza, seasonal, injectable Dr. Edyta Nichole Work Phone: [facility] 04-12-2014 influenza, injectabl e, quadrivalent, preservative free Dr. Beata Schwarz MD Work Phone: [facility] 04-12-2014 influenza, seasonal, injectable Dr. Edyta Nichole Work Phone: [facility] Payers Date Payer Category Payer Self-pay [id number] 2024 Unknown [id number] 2022 Unknown [id number] 2022 Unknown [employer] [id number] 2022-Present [address] [place] [address] Commercial [id number] 2016 Unknown [id number] 1961 Unknown [id number] 1961 Unknown [id number] 1961 Unknown [id number] 1961 Unknown [id number] Private Health Insurance [id number] Unknown COMMERCIAL OTHER [id number] Unknown [facility] [id number] Unknown [id number] 2.16.840.1.287668.3.579.2. 462 Unknown [id number] 2.16.840.1.529325.3.579.2. 462 Unknown [id number] 2.16.840.1.486812.3.579.2. 462 Unknown [id number] 2.16.840.1.371452.3.579.2. 462 Unknown [id number] 2.16.840.1.591161.3.579.2. 462 Unknown [id number] 2.16.840.1.294204.3.579.2. 462 Unknown [id number] 2.16.840.1.405510.3.579.2. 462 Unknown [id number] 2.16.840.1.642375.3.579.2. 462 Unknown [id number] 2.16.840.1.847817.3.579.2. 462 Unknown [id number] 2.16.840.1.939700.3.579.2. 462 Unknown [id number] 2.16.840.1.786587.3.579.2. 462 Unknown [id number] 2.16.840.1.806633.3.579.2. 462 Social History Date Type Detail Facility Start: 03-05-2022 End: 01-02-2023 Tobacco smoking status NHIS Unknown if ever smoked [facility] Start: 09-28-2016 Cigarettes;- [facility] Start: 1960 Sex Assigned At Female [facility] Start: 08-12-2023 End: 12-27-2024 Tobacco smoking status NHIS Smokes tobacco daily [facility] History of tobacco use Cigarette Smoker [facility] Start: 08-12-2023 End: 08-19-2023 Cigarettes smoked current (pack per day) - Reported 0.5 [facility] Start: 08-12-2023 Tobacco use and exposure Smokeless tobacco non-user [facility] Start: 08-19-2023 Alcohol intake Ex-drinker (finding) [facility] Start: 08-19-2023 [facility] Start: 08-12-2023 Tobacco Comment Trying to quit , down to 1-2 cigarettes per day now [facility] Start: 1960 Sex Assigned At Not on file [facility] Start: 10-26-2024 Sex Female (finding) [facility] NEGATED: Highlighted rowStart: NINF History of tobacco use Passive smoker [facility] Medical Equipment Procedure Code Equipment Code Equipment Origin al Text Equipment Identifier Dates Peripheral arter y stent, bare-metal ()[id number] FDA Start: 01-02-2023 Clinical Notes 07-24-2022 to 12-27-2024 Note Date & Type Note Facility 12-27-2024 Evaluation note Diagnosis Onset Date Resolution Asthma-COPD overlap syndrome chronic December 27, 2024 9:14am Smoking greater than 30 pack years chronic December 27, 2024 9:14am [facility] Work Phone: 1(548) 484-548506-17-2025 Evaluation note* Diagnosis Onset Date Resolution Status Admit Date Asthma-COPD overlap syndrome chronic December 27, 2024 9:14am Smoking greater than 30 pack years chronic December 27, 2024 9:14am Asthma-COPD overlap syndrome chronic February 07, 2025 8:59am Smoking greater than 30 pack years chronic February 07, 2025 8:59am [facility] Work Phone: 1(854) 571-611006-17-2025 Evaluation note* Diagnosis Onset Date Resolution Status [...] pack years chronic March 28, 2025 12:37pm [facility] Work Phone: 1(401) 527-996602-08-2024 Miscellaneous Notes* Care Coordination - Unknown Case Management - 08/20/2023 4:57 PM EST Patient Choice Patient Name: VIOLETTA LINDER Date of : 1960 All Providers Sent Referral Name: Home Health Services [facility] Address: [address], [address] [place] [address] Name: [facility] Address: [address] [place] [address] Name: [facility] Address: [address] [place] [address] [place] [address] Name: [facility] Address: [address] [place] [address] Name: [facility] Address: [address] [place] [address] Name: [facility] Phone: [phone] Address: [address] [place], [place] [address] * Home Care - Dina Shelton RN - 08/20/2023 3:36 PM EST [facility] called, as no response had been received via [facility] at this time. Referral sent to several additional agencies as discharge order noted in Epic. Pt agreeable to first available agency. 4pm update: [facility] is able to accept. Pt updated. Will send updated documentsfor SOC tomorrow . Attempted to reach PCP and Dr. Alejo to determine who will follow for home care. Edyta Nichole, pt's pcp will follow for home care. Also her name was updated in [facility], the PCP previously documented was incorrect. * Care Coordination - Ximena Albarado RN - 08/20/2023 2:40 PM EST Care Managment Initial Assessment Date: 08/20/2023 Patient Name: Violetta Linder : 1960 Patient Information Source of Information: Patient Cognition/Language: WFL - Within Functional Limits Permission given to speak with patient healthcare representative/caregiver as indicated: Confirmation of Payer with patient/family: Yes Payer Name: [employer] [place]: No Confirmation of Primary Care Physician: Confirmed [...] Living Prescription Coverage: Yes Pharmacy Used[facility] [place] Medication Management: Independent Transportation/Shopping: Independent Transportation [...] home care at discharge and is requesting [facility]. FRITZ Jules made aware. Pt denies any other needs from tcc. Anticipate possible dc home tomorrow if medically stable. at2:44 PM Ximena Albarado RN * Home Care - Dina Shelton RN - 08/20/2023 10:46 AM EST Spoke with pt at bedside and pt is agreeable to PT (declined/denied OT needs) at home following discharge. Pt requested [facility] and referral was sent. She stated if they are unable to accept, she'll be happy with first accepting agency. [place] is unable to staff that area with PTat this time. Pt denied DME needs. * Home Care - Dina Shelton RN - 08/20/2023 9:29 AM EST Business Operations Manager following case for Discharge Needs. * Care [...] to reposition in bed documented in this [facility]02-08-2024 Note* Care Coordination - Unknown Case Management - 08/20/2023 4:57 PM EST Patient Choice Patient Name: VIOLETTA LINDER Date of : 1960 All Providers Sent Referral Name: Home Health Services [facility] Address: [address] [place] [address] Name: [facility] Address: [address] [place] [address] Name: [facility] Address: [address] [place] [place] [address] Name: [facility] Address: [address] [place] [address] Name: [facility] Address: [address] [place] [address] Name: [facility] Phone: [phone] Address: [address] [place] [address] [facility] HospitalHhychj51-51-6115 Note* Care Coordination - Unknown Case Management - 08/20/2023 4:57 PM EST Patient Choice Patient Name: VIOLETTA LINDER Date of : 1960 All Providers Sent Referral Name: Home Health Services [facility] Address: [address] [place] [address] Name: [facility] Address: [address] [place] [address] [facility] Address: [address] [place] [place] [address] Name: [facility] Address: [address] [place] [address] Name: [facility] Address: [address] [place] [address] Name: [facility] Phone: [phone] Address: [address] [place] [address] [facility] HospitalFdlvtq36-75-5481 Note* Home Care - Dina Shelton RN - 08/20/2023 3:36 PM EST [facility] called, as [facility] at [facility] time. Referral sent to several additional agencies as discharge order noted in [facility]. Pt agreeable to first available agency. 4pm update: [facility] is able to accept. Pt updated. Will send updated documentsfor SOC tomorrow . Attempted to reach PCP and Dr. Alejo to determine who will follow for home care. Edyta Nichole, pt's pcp will follow for home care. Also her name was updated in [facility], the PCP previously documented was incorrect. [facility] HospitalAtnqhk96-43-9789 Note* Home Care - Dina Shelton RN - 08/20/2023 3:36 PM EST [facility] called, as no response had been received via [employer] at this time. Referral sent to several additional agencies as discharge order noted in Epic. Pt agreeable to first available agency. 4pm update: [facility] is able to accept. Pt updated. Will send updated documentsfor SOC tomorrow . Attempted to reach PCP and Dr. Alejo to determine who will follow for home care. Edyta Nichole, pt's pcp will follow for home care. Also her name was updated in [employer], the PCP previously documented was incorrect. [facility] HospitalEsijgc50-89-5674 NoteHospitalist Progress Note 08/20/2023 Subjective: Admit Date: [...] Shon Cabral Mobile Relation: Nephew Preferred language: Bruneian Crab Picker needed? No Heber Chan MD Division of Hospitalist Medicine [facility]02-08-2024 Note* Care Coordination - Ximena Albarado RN - 08/20/2023 2:40 PM EST Care Managment Initial Assessment Date: 08/20/2023 Patient Name: Violetta Linder : 1960 Patient Information Source of Information: Patient Cognition/Language: WFL - Within Functional Limits Permission given to speak with patient healthcare representative/caregiver as indicated: Confirmation of Payer with [...] Living Prescription Coverage: Yes Pharmacy Used: [facility] [place] Medication Management: Independent Transportation/Shopping: Independent Transportation Mode: [...] home care at discharge and is requesting [facility]. [facility] Dhara made aware. Pt denies any other needs from tcc. Anticipate possible dc home tomorrow if medically stable. at2:44 PM Ximena Albarado RN [facility] HospitalMnifem57-76-9613 Note* Care Coordination - Ximena Albarado RN - 08/20/2023 2:40 PM EST Care Managment Initial Assessment Date: 08/20/2023 Patient Name: Violetta Linder : 1960 Patient Information Source of Information: Patient Cognition/Language: WFL - Within Functional Limits Permission given to speak with patient healthcare representative/caregiver as indicated: Confirmation of Payer with [...] Living Prescription Coverage: Yes Pharmacy Used: [facility] [place] Medication Management: Independent Transportation/Shopping: Independent Transportation [...] home care at discharge and is requesting [facility]. [facility] Dhara made aware. Pt denies any other needs from tcc. Anticipate possible dc home tomorrow if medically stable. at2:44 PM Ximena Albarado RN [facility] MooBella Kluebj20-23-0610 NoteOCCUPATIONAL THERAPY [facility] Initial Evaluation Name/MRN: Violetta Linder ([id number]) Evaluation Date: 08/20/2023 Date of : 1960 Admission Date: 08/19/2023 9:37 AM Age: 63 y.o. [facility] Discharge Recommendation: Home with assist PRN [...] Arthritis Asthma COPD (chronic obstructive pulmonary disease) ([facility]) Past Surgical History: Past Surgical History: Procedure [...] of Care supervision is transferred to a [facility] Therapy Services Occupational Therapist. Goals and/or treatment plan was established in collaboration with patient/family/other representatives.[facility]02-08-2024 History of Present illness Narrative* Heber Chan [...] Shon Cabral Mobile Relation: Nephew Preferred language: Bruneian Crab Picker needed? No Heber Chan MD Division of Hospitalist Medicine [facility] * Merline Gutierrezelie - 08/20/2023 11:26 AM EST Images from the original note were not included. OCCUPATIONAL THERAPY [facility] Initial Evaluation Name/MRN: Violetta Linder ([id number]) Evaluation Date: 08/20/2023 Date of : 1960 Admission Date: 08/19/2023 9:37 AM Age: 63 y.o. Room/Bed: 74/4611 A Discharge Recommendation: Home with assist PRN [...] Arthritis Asthma COPD (chronic obstructive pulmonary disease) ([facility]) Past Surgical History: Past Surgical History: Procedure [...] of Care supervision is transferred to a [facility] Therapy Services Occupational Therapist. Goals and/or treatment plan was established in collaboration with patient/family/other representatives. * Karin Colon - 08/20/2023 10:13 AM EST Images from the original note were not included. PHYSICAL THERAPY [facility] Initial Evaluation Name/MRN: Violetta Linder ([id number]) Evaluation Date: 08/20/2023 Date of : 1960 Admission Date: 08/19/2023 9:37 AM Age: 63 y.o. Room/Bed: H-6126/H-6126 A Discharge Recommendation: Home with nursing care attendant, Home with Home health PT Equipment Needed: [...] Arthritis Asthma COPD (chronic obstructive pulmonary disease) ([facility]) Past Surgical History: Past Surgical History: Procedure [...] Independent Receives Help From: Family (nephew) Active Hogshead Cooper: Yes Prior Level of Function ADL Assistance: [...] of gait: No LOB, reciprocal stepping, narrow EVENA, slow rey Balance: Posture: poor Sitting - Static: Independent Sitting - Dynamic: Modified Independent with L UE on bed Standing - Static: Independent Standing - Dynamic: Independent- Modified Independent with reaching for handrails Stairs Stairs 1 Assistive device(s) used: none Assist level: Modified Independent # of steps: 3 ascended and descended Rails: right Additional factors: non-reciprocal going up, non-reciprocal going down Outcome Measures AM-[facility] How much HELP from another [...] Climbing 3-5 steps with a railing?+: None AM-[facility] Inpatient Mobility Raw Score : 24 AM-[facility] Inpatient Mobility Raw Score (No Stairs) : 20 [facility] -[facility] Score: Walked 25 ft or more (i.e. [...] of Care supervision is transferred to a [facility] Therapy Services Physical Therapist. Goals and/or treatment plan was established in collaboration with patient/family/other representatives. documented in this [facility]02-08-2024 NotePHYSICAL THERAPY [facility] Initial Evaluation Name/MRN: Violetta Linder ([id number]) Evaluation Date: 08/20/2023 Date of : 1960 Admission Date: 08/19/2023 9:37 AM Age: 63 y.o. [facility] Discharge Recommendation: Home with nursing care attendant, Home with Home health PT Equipment Needed: [...] Arthritis Asthma COPD (chronic obstructive pulmonary disease) ([facility]) Past Surgical History: Past Surgical History: Procedure [...] Independent Receives Help From: Family (nephew) Active Hogshead Cooper: Yes Prior Level of Function ADL Assistance: [...] JH-HLM -HL Score (more content not included)...[facility]02-08-2024 Note* Home Care - Dina Shelton RN - 08/20/2023 10:46 AM EST Spoke with pt at bedside and pt is agreeable to PT (declined/denied OT needs) at home following discharge. Pt requested [facility] and referral was sent. She stated if they are unable to accept, she'll be happy with first accepting agency. [place] is unable to staff that area with PTat this time. Pt denied DME needs. [facility] HospitalLlrwva50-13-4530 Note* Home Care - Dina Shelton RN - 08/20/2023 10:46 AM EST Spoke with pt at bedside and pt is agreeable to PT (declined/denied OT needs) at home following discharge. Pt requested [facility] and referral was sent. She stated if they are unable to accept, she'll be happy with first accepting agency. [place] is unable to staff that area with PTat this time. Pt denied DME needs. [facility] HospitalYkulta30-40-7301 Note* Home Care - Dina Shelton RN - 08/20/2023 9:29 AM EST Business Operations Manager following case for Discharge Needs. [facility] HospitalUqdzut39-83-9128 Note* Home Care - Dina Shelton RN - 08/20/2023 9:29 AM EST Business Operations Manager following case for Discharge Needs. [facility] [id number] Consult note* Wilver De La Cruz MD [...] Arthritis Asthma COPD (chronic obstructive pulmonary disease) ([facility]) Past Surgical History: Past Surgical History: Procedure [...] Shon Cabral Mobile Relation: Nephew Preferred language: Bruneian Crab Picker needed? No Wilver De La Cruz MD Division of Hospitalist Medicine Inpatient Medical Services/[facility] [employer] Phone: 1(787) 180-361602-07-2024 Consult note* Wilver De La Cruz MD - 08/19/2023 8:06 PM ESTAssociated Order(s): IP CONSULT TO HOSPITALIST Images from the original note were not included. Hospital Medicine Consult Patient - Violetta Linder, Age - 63 y.o. - 1960 Room Number - H-6126/H-6126 A Consulting - Agatha Alejo MD Primary [id number] Date of Admission - 08/19/2023 9:37 AM Hospital Day - 0 Reason for Consult: Medical Management HISTORY OF PRESENT ILLNESS: Violetta is a 63 y.o. female pmhx below POD #0 Lumbar laminectomy and decompression. Per Orthopedic specialty documentation no intraoperative complication or concern reported. [facility] consulted for Medical Management. Pt Hx significant [...] Contact: MishaShon Mobile Relation: Nephew Preferred language: Bruneian Crab Picker needed? No Wilver De La Cruz MD Division of Hospitalist Medicine Inpatient Medical Services/[facility] documented in this [facility]02-07-2024 Plan of care note* Care Plan - [...] Recommendations to address these barriers include . [facility] HospitalPgjrkb19-98-8446 NoteDischarge Summary Violetta Linder : 1960 ADMIT [...] Breztri Aerosphere 160-9-4.8 MCG/ACT aerosol Generic drug: Jdrklqt-Tsweadyonzd-Kfqpklgwci D3-1000 PO Diclofenac Sodium 1 % gel Commonly known as: Voltaren varenicline 1 MG tablet Commonly known as: Chantix DIET: No diet orders on file ACTIVITY: No restriction. COMPLEXITY OF FOLLOW UP: [x] Moderate Complexity: follow up within 7-14 calendar days (43965) [] Severe Complexity: follow up within 7 calendar days (12301) FOLLOW UP TESTING, PENDING RESULTS OR REFERRALS AT TRANSITIONAL CARE VISIT: [] Yes [x] No PENDING STUDIES: None DISPOSITION: Home FACILITY/HOME CARE AGENCY NAME: N/a Follow up with Agatha Alejo MD [address] [facility] [phone] Schedule an appointment as soon as possible [...] 14:51pm SIGNED: Candelario Kaminski MD 08/19/2023, 2:11 [facility]02-07-2024 Note* Perioperative Nursing Note - Renae Lerner RN - 08/19/2023 4:00 PM EST Assisted pt to turn onto left side [facility]02-07-2024 Note* Perioperative Nursing Note - Renae Lerner RN - 08/19/2023 4:00 PM EST Assisted pt to turn onto left side [facility]02-07-2024 NotePatient: Violetta Linder Procedure Summary Date: 08/19/23 Room / Location: [address] Operating Room Anesthesia Start: 1224 Anesthesia [...] discharged once all PACU criteria has been met.[facility] [id number] NotePatient: Violetta Linder Procedure Summary Date: 08/19/23 Room / Location: [address] Operating Room Anesthesia Start: 1224 Anesthesia [...] factors for PONV (4556F) Patient received at [facility] 2 prophylactic Rx PONV anti-emtic agents [...] of surgery or procedure by , [facility] nuclear operator proxy staff ([id number]) I completed my handoff to the receiving clinician during which we: 1. Identified the patient 2. Identified the responsible provider 3. Reviewed the pertinent medical history 4. Discussed the surgical course 5. Reviewed intra-op anesthesia management and issues during anesthesia 6. Set expectations for post-procedure period 7. Allowed opportunity for questions and acknowledgement of understanding.[facility] [id number] NoteAirway Date/Time: 08/19/2023 12:49 PM Urgency: scheduled General Information and Staff Patient location during procedure: Procedural Resident/BRAILLE DUPLICATING MACHINE OPERATOR: JANI Trinidad CRNA Performed: BRAILLE DUPLICATING MACHINE OPERATOR Performed by: JANI Trinidad CRNA Authorized by: JANI Trinidad CRNA Indications and Patient Condition Indications for airway management: anesthesia and airway protection Sedation level: Asleep Preoxygenated: yes Patient position: sniffing Mask difficulty assessment: 1 - vent by mask Final Airway Details Final airway type: endotracheal airway Successful airway: ETT Cuffed: yes Successful intubation technique: video laryngoscopy Endotracheal tube insertion site: oral Blade: [place] scope Blade size: #3 ETT size (mm): 7.0 Cormack-Lehane Classification: grade IIa - partial view of glottis Placement verified by: chest auscultation and capnometry Measured from: lips ETT to lips (cm): 20 Number of attempts at approach: [address] [place], [place] 4661502-07-2024 Note* Perioperative Nursing Note - Renae Lerner RN - 08/19/2023 3:10 PM EST Called for family to come back to see pt per pt request [address]hmeyc94-49-9077 Note* Perioperative Nursing Note - Renae Lerner RN - 08/19/2023 3:10 PM EST Called for family to come back to see pt per pt request [facility] HospitalAtntle02-58-1270 Note* Perioperative Nursing Note - Renae Lerner RN - 08/19/2023 3:02 PM EST Called and provided update to family listed in chart for this visit [facility] HospitalIvpkcc26-89-5332 Note* Perioperative Nursing Note - Renae Lerner RN - 08/19/2023 3:02 PM EST Called and provided update to family listed in chart for this visit [id number] Note* Perioperative Nursing Note - Renae Lerner RN - 08/19/2023 2:32 PM EST Assisted pt to reposition in bed [address]hcidl65-94-7056 Note* Perioperative Nursing Note - Renae Lerner RN - 08/19/2023 2:32 PM EST Assisted pt to reposition in bed [facility] HospitalRsrzfq41-03-5892 Hospital Discharge instructions* Discharge Instructions* Candelario Kaminski [...] Emergency Contact Information Primary Emergency Contact: Shon Cbaral Mobile Relation: Nephew Preferred language: Bruneian Crab Picker needed? No Past Surgical History: Past Surgical [...] 3.5 oz) Mental Status: {MEGHANA Patient Mental Status:43559} IV Access: {MEGHANA IV Access:44256} Nursing Mobility/ADLs: Walking {JULIANE ADL:::Independent} Transfer {JULIANE ADL:::Independent} Bathing {JULIANE ADL:::Independent} Dressing {JULIANE ADL:::Independent} Toileting {JULIANE ADL:::Independent} Feeding {JULIANE ADL:::Independent} Mobile Ui Designer {JULIANE ADL:::Independent} Med Delivery {yes/no:01641} Wound Care Documentation and Therapy: Wound/Incision 08/19/23 Incision Back Lower;Midline (Active) Site Assessment Unable to assess 08/20/23829 Odor None 08/19/232144 Drainage Amount None 08/19/232144 Primary Dressing ABD 08/20/23829 Dressing Status Clean, dry & intact 08/20/23829 Number of days: 1 Elimination: Continence: Bowel: {yes/no:58017} Bladder: {yes/no:54412} Urinary Catheter: {MEGHANA Urinary Catheter:38480} Colostomy/Ileostomy/Ileal Conduit: {YES / NO:13662} Date of Last BM: Intake/Output Summary (Last 24 hours) at 08/20/2023 1627 Last data filed at 08/20/2023 1057 Gross per 24 hour Intake 1735 ml Output -- Net 1735 ml I/O last 3 completed shifts: In: 1500 (21.6 mL/kg) [P.O.:800; I.V.:700 (10.1 mL/kg)] Out: 25 (0.4 mL/kg) [Blood:25] Weight: 69.5 kg Safety Concerns: {MEGHANA Safety Concerns:94632} Impairments/Disabilities: {MEGHANA Impairments/Disabilities:54158} Nutrition Therapy: Current Nutrition Therapy: {MEGHANA Diet List:40165} Routes of Feeding: {routes of feedin} Liquids: {liquid consistency:86890} Daily Fluid Restriction: {daily fluid restriction:97886} Last Modified Barium Swallow with Video (Video Swallowing Test): {done not done:52323} Treatments at the Time of Hospital Discharge: Respiratory Treatments: Oxygen Therapy: {Therapy; copd oxygen:94492} Ventilator: {MEGHANA Ventilator:92091} Rehab Therapies: {GEN THERAPY DISCIPLINE SCAL:9907067} Weight Bearing Status/Restrictions: {POD WEIGHT BEARIN} Other Medical Equipment (for information only, NOT a DME order): {Assistive Devices DME:39811} Other Treatments: Patient's personal belongings (please select all that are sent with patient): {MEGHANA Patient Belongings:63867} RN SIGNATURE: {E-signature:11255} CASE MANAGEMENT/SOCIAL WORK SECTION Inpatient Status Date: Readmission Risk Assessment Score: @READMISSIONRISKDETAILS@ Discharging to Facility/ Agency Home Health Services [facility] Dialysis Facility (if applicable) Name: Address: Dialysis Schedule: Phone: Fax: Fabrication And Assembly Supervisor/Building Construction Foreman signature: {E-signature:31933} PHYSICIAN SECTION Prognosis: {Rehab Prognosis:01878} Condition at Discharge: {Patient Condition:24307} Rehab Potential (if transferring to Rehab): {Rehab Prognosis:20711} Recommended Labs or Other Treatments After Discharge: Physician Certification: I certify the above information and transfer of Violetta Linder is necessary for the continuing treatment of the diagnosis listed and that she requires {MEGHANA Level of Care:12553} for {greater less than:15972} 30 days. Update Admission H&P: {MEGHANA Changes in H&P:93247} PHYSICIAN SIGNATURE: {E-signature:56308} documented in [facility]01-31-2024 NotePatient: Violetta Linder Procedure Information Date/Time: 08/19/23 1100 Procedures: MICRODISCECTOMY, FORAMINOTOMY LUMBAR 3-4, LUMBAR 4-5 RIGHT (Right: Spine Lumbar) POSTERIOR LUMBAR LAMINECTOMY FACETECTOMY FORAMINOTOMY AND DECOMPRESSION (Right: Spine Lumbar) Location: [address] Operating Room Surgeons: Agatha Alejo MD [...] history or previous problems with anesthesia no(Per EYELET RIVETER H&H pending - completed prior to PAT at [facility] ) The patient is a current [...] Sinus rhythm Right axis deviation Consider anteroseptal [facility]01-31-2024 NoteComprehensive Pre Surgical History and Physical ? Name: Violetta Linder : 1960 (Age-63 y.o.) Date of Service: Pt seen/examined on 08/12/2023 Procedure Information Date/Time: 08/19/23 1100 Procedures: MICRODISCECTOMY, FORAMINOTOMY LUMBAR 3-4, LUMBAR 4-5 RIGHT (Right: Spine Lumbar) POSTERIOR LUMBAR LAMINECTOMY FACETECTOMY FORAMINOTOMY AND DECOMPRESSION (Right: Spine Lumbar) Location: [facility] [address] [place] [address] Operating Room Surgeons: Agatha Alejo MD Chief [...] pending - completed prior to PAT at [facility] 3) Sinus allergies -not currently 4) [...] 3-4, LUMBAR 4-5 RIGHT (Right: Spine Lumbar) [69721 CPT(R)] POSTERIOR LUMBAR LAMINECTOMY FACETECTOMY FORAMINOTOMY AND DECOMPRESSION (Right: Spine Lumbar) [18287 CPT(R)] Anesthesia type: General No notes from surgeons office Dr Alejo in [facility] or care everywhere. ? Denies history of IA, CAD, CHF, TIA, CVA, DVT, PE Past Medical History: Past Medical History: No date: Arthritis No date: Asthma No date: COPD (chronic obstructive pulmonary disease) ([facility]) Past Surgical History: Past Surgical History: No [...] She is obese. HENT: (more content not included)...[facility] [id number] Note Comprehensive Pre Surgical History and Physical ? Name: Violetta Linder : 1960 (Age-63 y.o.) Date of Service: Pt seen/examined on 08/12/2023 Procedure Information Date/Time: 08/19/23 1100 Procedures: MICRODISCECTOMY, FORAMINOTOMY LUMBAR 3-4, LUMBAR 4-5 RIGHT (Right: Spine Lumbar) POSTERIOR LUMBAR LAMINECTOMY FACETECTOMY FORAMINOTOMY AND DECOMPRESSION (Right: Spine Lumbar) Location: [address] Operating Room Surgeons: Agatha Alejo MD [...] pending - completed prior to PAT at [facility] 3) Sinus allergies -not currently 4) [...] who we are asked to see/evaluate by [place] [id number] for pre-operative evaluation prior to . MICRODISCECTOMY, FORAMINOTOMY LUMBAR 3-4, LUMBAR 4-5 RIGHT (Right: Spine Lumbar) [79664 CPT(R)] POSTERIOR LUMBAR LAMINECTOMY FACETECTOMY FORAMINOTOMY AND DECOMPRESSION (Right: Spine Lumbar) [51834 CPT(R)] Anesthesia type: General No notes from surgeons office Dr Alejo in [facility] or care everywhere. ? Denies history of IA, CAD, CHF, TIA, CVA, DVT, PE Past Medical History: Past Medical History: No date: Arthritis No date: Asthma No date: COPD (chronic obstructive pulmonary disease) ([facility]) Past Surgical History: Past Surgical History: No [...] is obese. HENT: (more content not included)...[facility]01-31-2024 History and physical note* Mariam Wagoner, JANI - ORGANIZATIONAL DEVELOPMENT MANAGER - 08/12/2023 1:30 PM EST Images from the original note were not included. Comprehensive Pre Surgical History and Physical ? Name: Violetta Linder : 1960 (Age-63 y.o.) Date of Service: Pt seen/examined on 08/12/2023 Procedure Information Date/Time: 08/19/23 1100 Procedures: MICRODISCECTOMY, FORAMINOTOMY LUMBAR 3-4, LUMBAR 4-5 RIGHT (Right: Spine Lumbar) POSTERIOR LUMBAR LAMINECTOMY FACETECTOMY FORAMINOTOMY AND DECOMPRESSION (Right: Spine Lumbar) Location: [address] Operating Room Surgeons: Agatha Alejo MD [...] pending - completed prior to PAT at [facility] 3) Sinus allergies -not currently 4) [...] who we are asked to see/evaluate by [facility] 03 for pre-operative evaluation prior to. MICRODISCECTOMY, FORAMINOTOMY LUMBAR 3-4, LUMBAR 4-5 RIGHT (Right: Spine Lumbar) [43475 CPT(R)] POSTERIOR LUMBAR LAMINECTOMY FACETECTOMY FORAMINOTOMY AND DECOMPRESSION (Right: Spine Lumbar) [83310 CPT(R)] Anesthesia type: General No notes from surgeons office Dr Alejo in [facility] or care everywhere. ? Denies history of IA, CAD, CHF, TIA, CVA, DVT, PE Past [...] QT Interval 397 QTC Interval 424 P Spring 86 QRS Spring 99 T Wave Spring 73 NM Interval 130 Impression Sinus rhythm Right axis deviation Consider anteroseptal infarct ECHO and EF:None on file No components found for: LVEF, LVEFMODE METS >4 Electronically signed by: JANI Mitchell CNP Date: 08/12/2023 at 2:09 PM [facility] Work Phone: 1(507) 729-829701-31-2024 History and physical note* JANI Mitchell CNP - 08/12/2023 1:30 PM EST Images from the original note were not included. Comprehensive Pre Surgical History and Physical ? Name: Violetta Linedr : 1960 (Age-63 y.o.) Date of Service: Pt seen/examined on 08/12/2023 Procedure Information Date/Time: 08/19/23 1100 Procedures: MICRODISCECTOMY, FORAMINOTOMY LUMBAR 3-4, LUMBAR 4-5 RIGHT (Right: Spine Lumbar) POSTERIOR LUMBAR LAMINECTOMY FACETECTOMY FORAMINOTOMY AND DECOMPRESSION (Right: Spine Lumbar) Location: [facility] [address] [place] [address] Operating Room Surgeons: Agatha Alejo MD Chief [...] pending - completed prior to PAT at [facility] 3) Sinus allergies -not currently 4) [...] who we are asked to see/evaluate by [facility] PAT 03 for pre-operative evaluation prior to. MICRODISCECTOMY, FORAMINOTOMY LUMBAR 3-4, LUMBAR 4-5 RIGHT (Right: Spine Lumbar) [41237 CPT(R)] POSTERIOR LUMBAR LAMINECTOMY FACETECTOMY FORAMINOTOMY AND DECOMPRESSION (Right: Spine Lumbar) [57317 CPT(R)] Anesthesia type: General No notes from surgeons office Dr Alejo in [facility] or care everywhere. ? Denies history of IA, CAD, CHF, TIA, CVA, DVT, PE Past [...] QT Interval 397 QTC Interval 424 P Spring 86 QRS Spring 99 T Wave Spring 73 NM Interval 130 Impression Sinus rhythm Right axis deviation Consider anteroseptal infarct ECHO and EF:None on file No components found for: LVEF, LVEFMODE METS >4 Electronically signed by: Mariam Wagoner APRN - ORGANIZATIONAL DEVELOPMENT MANAGER Date: 08/12/2023 at 2:09 PM documented in this [facility] NAME ACCOUNT SEX AGE ADMIT DISCHARGE PT MED. RECORD# NUMBER DATE DATE TYPE NIYA [id number] F 63 03/30/23 03/31/23 2 VIOLETTA [id number] ROOM: 302MO DATE OF : 1960 ATTENDING [...] Stacy Vale MD 03/31/23 12:42 JOB #: [id number] Transcribed By: am 03/31/23 14:44 Electronically signed by: E-Sign: STACY VALE MD 04/04/23 11:53 Page 1 of 1 NIYA, V[facility]TTA [facility] HISTORY & PHYSICAL NAME ACCOUNT SEX AGE ADMIT DISCHARGE PT MED. 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 SOCIAL HISTORY: The patient continues to smoke. [...] Stacy Vale MD 03/31/23 12:39 JOB #: [id number] Transcribed By: brigid 03/31/23 13:47 Electronically signed by: E-Sign: STACY VALE MD 04/04/23 11:53 Update to H&P: [ ] No changes: I have examined the patient and reviewed the H&P and there are no changes. [ ] As previously dictated with the following changes: ____ (more content not included)...[facility]2023 History and physical note Author Dr. Rojas [facility] December 26, 2022 11:25am Note Date/Time December 26, 2022 10:5 3am [facility] Medical Records Department [address] [place] [address] History & Physical Exam 12/26/22 1045 MR#: [id number] Acct: [id number] Name: VIOLETTA LINDER Rep #:[id number] : 1960 62 From: Kelly Nino EYELET RIVETER-C PCP: Dr. 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 Cervical radiculopathy COPD (chronic obstructive [...] Rojas MD; Dr. Edyta Nichole DO~ Signed [facility] Work Phone: 1(622) 944-984702-09-2023 Procedure [facility] Diagnosis Onset Date Resolution Status Nicotine dependence acute Asthma-COPD overlap syndrome chronic Smoking chronic Stage 3 severe COPD by GOLD classification [facility] Work Phone: Evaluation note* Diagnosis Onset Date Resolution Status Smoking greater than 30 pack years acute Asthma-COPD overlap syndrome [facility] Work Phone: evaluation note* Diagnosis Onset Date Resolution Status Smoking greater than 30 pack years acute 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 Stage 3 severe COPD by GOLD classification [facility] Work Phone: Evaluation note* Diagnosis Onset Date Resolution Status Smoking greater than 30 pack years acute 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 Stage 3 severe COPD by GOLD classification chronic Shortness of breath acute Smoking greater than 30 pack years acute Stage 3 severe COPD by GOLD classification [facility] Work Phone: Evaluation note* Diagnosis Onset Date Resolution Status Asthma-COPD overlap syndrome chronic Stage 3 severe COPD by GOLD classification chronic Shortness of breath acute Smoking greater than 30 pack years acute Stage 3 severe COPD by GOLD classification chronic Shortness of breath acute [facility] Work Phone: Evaluation note* Diagnosis Onset Date Resolution Status Shortness of breath acute Smoking greater than 30 pack years acute Stage 3 severe COPD by GOLD classification chronic Shortness of breath acute [facility] Work Phone: Evaluation note* Diagnosis Spinal stenosis- Primary Spinal stenosis, unspecified region other than cervical Spinal stenosis Spinal stenosis, unspecified region other than cervical Lumbar radiculopathy Thoracic or lumbosacral neuritis or radiculitis, unspecified documented in this encounter [facility] noteNo assessment information availableWKet[facility] Work Phone: Evaluation note* Diagnosis Onset Date Resolution Status Admit Date Asthma-COPD overlap syndrome chronic December 27, 2024 9:14am Smoking greater than 30 pack years chronic December 27, 2024 9:14am [facility] Work Phone: Hospital Discharge instructionsAmbulatory Orders* Cardiology Location: None Selected [facility] Work Phone: Reason for referral (narrative)No reason for referral information availableWKettering Health Greene Memorial Work Phone: Summary Purpose Family History Relationship [...] November 15, 2018 5: 50pm Power of Assembler Cards And Announcements Yes November 15, 2018 5:50pm Advance Directive Response Recorded Date/ Time Advance Directives No April 14, 2013 7:52am Living Will Yes November 15, 2018 6: 50pm Power of Assembler Cards And Announcements Yes November 15, 2018 6:50pm Advance Directive Response Recorded Date/ Time Advance Directives No January 01 8:18am Living Will No January 01, 2023 8:18am Power of Assembler Cards And Announcements No January 01 8:18am Advance Directive Response [...] Smoking greater than 30 pack years [facility] 2024 12:37pm Additional Source Comments INFORMATION SOURCE (unrecogn ized section and content) DATE CREATED AUTHOR 01/05/2018 [facility] DATE CREATED AUTHOR AUTHOR'S ORGANIZ ATION 12/06/2020 [facility] DATE CREATED AUTHOR AUTHOR'S ORGANIZ ATION 03/08/2022 [facility] ([place]) DATE CREATED AUTHOR AUTHOR'S ORGANIZ ATION 09/14/2023 [facility] DATE CREATED AUTHOR AUTHOR'S ORGANIZ ATION 10/16/2023 [facility] DATE CREATED AUTHOR AUTHOR'S ORGANIZ ATION 03/29/2025 [facility] Goals (unrecognized section and content) Goals [...] Provider, Referring P rovider Active Carol Casillas EYELET RIVETER, EYELET RIVETER-C Attending Provider Active Team Status: Active Member Role Status Dates Dr. Edyta Nichole DO Primary Care Provider Active Carol Casillas EYELET RIVETER, EYELET RIVETER-C Other Provider Active Dr. Santana Burgos DO Attending Provider Active Team Status: Inactive Member Role Status Dates Dr. Edyta Nichole DO Primary Care Provider Active Carol Casillas EYELET RIVETER, EYELET RIVETER-C Attending Provider, Referrin g Provider Active Team Status: Inactive Member Role Status Dates Dr. Edyta Nichole DO Primary Care Provider Active Carol Casillas EYELET RIVETER, EYELET RIVETER-C Attending Provider Active Team Status: Inactive Member Role Status Dates Dr. Edyta Nichole DO Primary Care Provider, Referring P rovider Active Dr. Leighton Ruiz MD Attending Provider Active Team Status: Active Member Role Status Dates Dr. Edyta Nichole DO Primary Care Provider Active Carol Casillas EYELET RIVETER, EYELET RIVETER-C Referring Provider, Other Pr ovider Active Dr. [...] MD Other Provider Active Kelly Mitchell NP, EYELET RIVETER-C Attending Provider Active Neurosurgery Spine Physician Relationship Specialty Start Date End Date Alberto Tong PA [address] [place] [phone] PCP - General Family Medicine 08/06/23 08/19/23 Edyta Nichole [address] [facility] [place] [phone] PCP - General Family Medicine 08/20/23 Team [...] 2024 End: December 27, 2024 Dr. Washington Rojsa MD Attending Provider Active S tart: December [...] Spinal stenosis of lumbar region [M48.061] Procedures NM LAMNOTMY INCL W/DCMPRSN NRV ROOT 1 INTRSPC LUMBR NM CURTIS FACETECTOMY & FORAMOTOMY 1 VRT SGM LUMBAR MICRODISCECTOMY, FORAMINOTOMY LUMBAR 3-4, LUMBAR 4-5 RIGHT POSTERIOR LUMBAR LAMINECTOMY FACETECTOMY FORAMINOTOMY AND DECOMPRESSION Agatha Alejo MD [address] [address] [address] [place] [address] [place] [address] Referral ID Status Reason Start Date Expiration Date Visits Re quested Visits Authorized [id number] 1 1 Scheduled Active and Recently Administ [...] - Provider: Jean Marie Fontanez APRN - BRAILLE DUPLICATING MACHINE OPERATOR - Comment: Switch to gravity)1224 (Restarted [...] sedation for opioid reversal - MUST notify rehabilitation team lead provider immediately after first dose, may give [...] [address] (See Alternative - Provider: Bryce Stevenson RN) 0250 (See Alternative - Provider: Bryce [...] BE BASED ON THE PRIMARY CLINICAL RECORDS. [employer] [facility]. provides no warranty or guarantee of the accuracy or completeness of information in this document.
== END | disposition home or self-care (01) ==
LOC: OPUS 08:46
PROVIDERS: PCP Family Medicine; Referring Provider Nurse Practitioner Family; Visit Provider Nurse Practitioner Family
DX: N63.10 Unspecified lump in the right breast, unspecified quadrant (principal)
CPT/HCPCS: 76642

== ENCOUNTER → 2025-07-03 | Outpatient (CLI) | payer OTHER, MEDICAID, SELFPAY ==
[2025-07-03 13:30] VITALS: PULSE 109; PULSE 112; PULSE 114; PULSE 118; PULSE 85; PULSE 95; PULSE 99; O2SAT 92; O2SAT 93; O2SAT 94; O2SAT 95; O2SAT 96; O2SAT 97
--- NOTE | 2025-07-03 13:52 | CPS ---
Pt donovan. walk well.
--- NOTE | 2025-07-12 11:25 | PCM.PSN.6M ---
PSN 6 Minute Walk Test 6 Minute Walk Test 6 Minute Walk Test: 6 Minute Walk Test PSN:6-Minute Walk Test Start: 07/03/25 13:48 Freq: Status: Active Protocol: RESP.6MINW Document 07/03/25 13:30 AEH (Rec: 07/03/25 13:52 AEH [email or web address]) 6 Minute Walk Test Date Performed 07/03/25 Time Performed 13:30 Height 5 ft 4 in Weight: 150 lb Weight in Pounds 150.[address]: Rosalind Assistive device None used: Pre-test Oxygen Delivery Room Air Method Pulse Ox (%) 97 Pulse Rate (60-100 95 beats/min) Dyspnea Helga Scale ( 0 0-10) Exertion Helga Scale 6 (6-20) 1st minute Oxygen Delivery Room Air Method Pulse Ox (%) 95 Pulse Rate (60-100 99 beats/min) 2nd minute Oxygen Delivery Room Air Method Pulse Ox (%) 92 Pulse Rate (60-100 109 H beats/min) 3rd minute Oxygen Delivery Room Air Method Pulse Ox (%) 92 Pulse Rate (60-100 112 H beats/min) 4th minute Oxygen Delivery Room Air Method Pulse Ox (%) 94 Pulse Rate (60-100 85 beats/min) 5th minute Oxygen Delivery Room Air Method Pulse Ox (%) 93 Pulse Rate (60-100 114 H beats/min) 6th minute Oxygen Delivery Room Air Method Pulse Ox (%) 93 Pulse Rate (60-100 118 H beats/min) Dyspnea Helga Scale ( 3 0-10) Exertion Helga Scale 13 (6-20) Post-test Oxygen Delivery Room Air Method Pulse Ox (%) 96 Pulse Rate (60-100 95 beats/min) Full Laps Walked 20 Partial Lap, Number 35 of Tiles Walked Total Distance 1215 Walked (ft) Interpretation Interpretation: The patient ambulated 1215 feet over the course of 6 minutes beginning on room air without assistive devices. Pretesting oxygen saturation was noted to be 97% on room air. With ambulation, the ata oxygen saturation was 92%. This represents a significant exertional oxygen desaturation, consistent with a pulmonary limitation to exercise tolerance. Recommendations Recommendations: There is no indication for the use of supplemental oxygen at this time. However, close interval follow-up is recommended, given the degree of oxygen desaturation noted during this study.
== END | disposition home or self-care (01) ==
LOC: PSN 13:13
PROVIDERS: PCP Family Medicine; Referring Provider Nurse Practitioner Family; Visit Provider Nurse Practitioner Family
DX: F17.210 Nicotine dependence, cigarettes, uncomplicated (principal)
CPT/HCPCS: 94618

== ENCOUNTER → 2025-07-05 | Outpatient (CLI) | payer OTHER, MEDICAID, SELFPAY ==
--- OUTSIDE RECORDS SUMMARY | 2025-07-05 09:49 | XMS RPT_ITS | CCD ---
Author Organization [facility] Care Team Providers Care Plant Culture Manager Name Role Phone Sonja MANAGER CONCRETE, Carol S Unavailable [phone] Dr. Edyta Nichole Primary Care Provider Dr. Edyta Nichole Referring Provider [phone] Leighton Ruiz Attending Provider Dr. Edyta Nichole Primary Care Provider Dr. Edyta Nichole Referring Provider Sonja SEWING MACHINE REPAIRER HELPER, SEWING MACHINE REPAIRER HELPER-C Carol Attending Provider Sonja SEWING MACHINE REPAIRER HELPER, SEWING MACHINE REPAIRER HELPER-C Carol Other Provider Dr. Santana Burgos Attending Provider Sonja SEWING MACHINE REPAIRER HELPER, SEWING MACHINE REPAIRER HELPER-C Carol Referring Provider Dr. Leighton Ruiz Attending Provider [phone] Edyta Nichole Primary Care Provider Dr. Edyta Nichole Referring Provider Sonja SEWING MACHINE REPAIRER HELPER, SEWING MACHINE REPAIRER HELPER-C Carol Attending Provider [phone] Sonja SEWING MACHINE REPAIRER HELPER, SEWING MACHINE REPAIRER HELPER-C Carol Referring Provider [phone] Sonja SEWING MACHINE REPAIRER HELPER, SEWING MACHINE REPAIRER HELPER-C Carol Other Provider Dr. Santana Burgos Attending Provider Dr. Leighton Ruiz Attending Provider [phone] Edyta Nichole Primary Care Provider [phone] Dr. Edyta Nichole Referring Provider [phone] Sonja SEWING MACHINE REPAIRER HELPER, SEWING MACHINE REPAIRER HELPER-C Carol Attending Provider Dr. Washington Rojas Attending Provider Dayanara, Dr. Lan Primary Care Provider Dr. Edyta Nichole Referring Provider [phone] Washington Rojas Referring Provider Bette Black Attending Provider Unavailable Crystal, Dr. Delarosa Other Provider Stephen SEWING MACHINE REPAIRER HELPER, SEWING MACHINE REPAIRER HELPER-C Attending Provider Alycia TORRES [facility] Primary Care Provider Edyta Nichole Primary Care Provider AGATHA ALEJO Attending Unavailable [facility] Primary Care Unavailable AGATHA [...] Provider Crystal BAILEY, Dr. Delarosa Attending Provider [phone] Washington Rojas Attending Unavailable Mied, [place] Primary Care Unavailable Miedel, Beata Primary Care Unavailable Miedel, Beata Attending Unavailable Miedel, Beata Referring Unavailable Miedel, [place] Primary Care Unavailable Sandra Soriano Attending Unavailable Sandra Soriano Referring Unavailable Micki Laird Attending Unavailable Miedel, [place] Primary Care Unavailable Sonja SEWING MACHINE REPAIRER HELPER, Carol Attending Unavailable Sonja SEWING MACHINE REPAIRER HELPER, Carol Referring Unavailable Miedel, [place] Primary Care Unavailable Miedel, [place] Primary Care Unavailable Miedel, Beata Attending Unavailable Miedel, Beata Referring Unavailable Miedel, [place] Primary Care Unavailable Sandra Soriano Attending Unavailable Sandra Soriano Referring Unavailable Sandra Soriano Attending Unavailable Miedel, Beata Referring Unavailable Miedel, [place] Primary Care Unavailable Miedel, [place] Primary Care Unavailable Sandra Soriano Attending Unavailable Miedel, Beata Referring Unavailable Malys, Edyta Referring Unavailable Miedel, [place] Primary Care Unavailable Sandra Soriano Attending Unavailable Washington Rojas Attending Unavailable Mied, [place] Primary Care Unavailable Miedel, [place] Primary Care Unavailable Sandra Soriano Attending Unavailable Mied, Beata Referring Unavailable Chong BAILEY, Dr. Cota Primary Care Physician Christie SEWING MACHINE REPAIRER HELPER-CSnadra Attending Physician Dr. Washington Rojas MD Attending Physician [phone] Allergies Allergy Classification Reported Allergen(s) Allergy Type Date of Onset Reaction(s) Facility (3 sources) dicloxacillin; Translations: [DICLOXACILLIN] Drug Allergy 6 [facility] Repository (3 sources) ePHEDrine; Translations: [EPHEDRINE] Drug Allergy 6 [facility] Repository (19 sources) Amoxicillin; Translations: [AMOXICILLIN] Drug Allergy 5 Unknown [facility] Work Phone: (6 sources) Clavulanate Drug Allergy 5 Vomiting [facility] (1 source) Clavulanate Drug Allergy 5 [facility] Repository NEGATED: Highlighted row has been ruled out! (1 source) Observed no known allergies at [facility] No Known Allergies 7 propensity to adverse reactions [facility] Work Phone: Medications Current Medications Medication Drug [...] days. 15 tablet 0 08/19/2023 08/26/2023 Active [id number] 200 actuat albuterol 0.09 mg/actuat metered dose [...] 1 vial q4h as needed ALBUTEROL SULFATE [id number] Carol Casillas CNP Start: 09-26-2016 take 2 puff(s) by in halation every four hours as needed VENTOLIN HFA 108 (90 Base) MCG/ACT AERS INH 2 puffs q4h as needed ALBUTEROL SULFATE [id number] Carol Casillas CNP Start: 09-06-2016 End: 09-06-2016 [...] 1 puff q6h as needed ALBUTEROL SULFATE [id number] Huber TORRES End: 01-16-2015 ALBUTEROL SULFATE (5 MG/ML) 0.5% NEBU i inhalation Q 4-6H, as needed ALBUTEROL SULFATE [id number] Monica Jarrell End: 10-31-2015 PROVENTIL HFA 108 (90 Base) MCG/ACT AERS 2 inhalation puffs Q 6 H as needed ALBUTEROL SULFATE [id number] Edyta Nichole, albuterol 0.833 mg/ml / ipratropium [...] Q 6- 8 H, as needed IPRATROPIUM-ALBUTEROL [id number] Jordi Rodriguez MA ascorbic acid 1000 mg [...] 28, 2025 12:49pm Start: 12-27-2024 End: 03-28-2025 Rruoxearln-Pqiibdel-Hqrusved ol (Breztri Aerosphere) 160-9-4.8 mcg/actuation HFA aerosol [...] 27, 2024 9:31am Start: 06-24-2024 End: 12-27-2024 Nlkzhnkoab-Gjhcvwkd-Odtavbqe ol (Breztri Aerosphere) 160-9-4.8 mcg/actuation HFA aerosol inhaler Discontinued 2 NMA INHALATION TWICE A DAY 3 3 June 24, 2024 9:46am December 27, 2024 9:49am Start: 06-24-2024 End: 12-27-2024 Zpaloixhzf-Lrlntxsb-Luveyjfd ol (Breztri Aerosphere) 160-9-4.8 mcg/actuation HFA aerosol inhaler Discontinued 2 NMA INHALATION TWICE A DAY 3 June 24, 2024 9:46am December 27, 2024 9:49am Start: 06-24-2024 Budesonide-Gly copyr-Formoterol (Breztri Aerosphere) 160-9-4.8 mcg/actuation HFA aerosol inhaler Active 2 NMA INHALATION TWICE A DAY 3 June 24, 2024 9:46am Start: 04-28-2024 End: 06-24-2024 Qsqylwdmql-Dmdyzgiu-Kjjhfwed ol (Breztri Aerosphere) 160-9-4.8 mcg/actuation HFA aerosol inhaler Discontinued 2 NMA INHALATION TWICE A DAY 3 3 April 28, 2024 7:31pm June 24, 2024 9:47am Start: 04-28-2024 End: 06-24-2024 Ffyjhdwsyq-Losgvyjk-Djeemxap ol (Breztri Aerosphere) 160-9-4.8 mcg/actuation HFA aerosol inhaler Discontinued 2 NMA INHALATION TWICE A DAY 3 April 28, 2024 7:31pm June 24, 2024 9:47am Start: 02-02-2024 End: 04-28-2024 Qzpwfyqshd-Bjgkejva-Ascgokeq ol (Breztri Aerosphere) 160-9-4.8 mcg/actuation HFA aerosol inhaler Discontinued 2 NMA INHALATION TWICE A DAY 3 3 February 02, 2024 8:24am April 28, 2024 7:32pm Start: 02-02-2024 End: 04-28-2024 Tphlbxewco-Rgyrzzen-Yzlwxehw ol (Breztri Aerosphere) 160-9-4.8 mcg/actuation HFA aerosol inhaler Discontinued 2 NMA INHALATION TWICE A DAY 3 February 02, 2024 8:24am April 28, 2024 7:32pm Start: 11-11-2023 End: 02-02-2024 Chbvsvntel-Udplkuuv-Jzggbvae ol (Breztri Aerosphere) 160-9-4.8 mcg/actuation HFA aerosol inhaler Discontinued 2 NMA INHALATION TWICE A DAY 10.7 November 11, 2023 8:21am February 02, 2024 8:24am Start: 11-11-2023 End: 02-02-2024 Mhfrecptjm-Pcmebldk-Gummngtv ol (Breztri Aerosphere) 160-9-4.8 mcg/actuation HFA aerosol inhaler Discontinued 2 NMA INHALATION TWICE A DAY 10.7 November 11, 2023 8:21am February 02, 2024 8:24am Start: 07-20-2023 take 2 puff(s) by inhalation twice daily Breztri Aerosphere 160-9-4.8 MCG/ACT aerosol INHALE 2 (TWO) puffs twice a day] 0 07/20/2023 Active Start: 10-07-2022 End: 11-11-2023 Amjocjalpn-Xqjehqld-Bylfioch ol (Breztri Aerosphere) 160-9-4.8 mcg/actuation HFA aerosol inhaler Discontinued 2 NMA INHALATION TWICE A DAY 10.7 October 07, 2022 10:42am November 11, 2023 8:21am Start: 10-07-2022 End: 11-11-2023 Buwdwcepzd-Dqnnznge-Dixkansw ol (Breztri Aerosphere) 160-9-4.8 mcg/actuation HFA aerosol inhaler Discontinued 2 NMA INHALATION TWICE A DAY 10.7 October 07, 2022 10:42am November 11, 2023 8:21am Start: 10-07-2022 Budesonide-Gly copyr-Formoterol (Breztri Aerosphere) 160-9-4.8 mcg/actuation HFA aerosol inhaler Active 2 INH INHALATION TWICE A DAY 10.7 October 07, 2022 10:42am Start: 03-05-2022 End: 10-07-2022 Kplcnlvqjy-Gizxwwob-Kzasvvwv ol (Breztri Aerosphere) 160-9-4.8 mcg/actuation HFA aerosol inhaler Discontinued 2 NMA INHALATION TWICE A DAY 10.7 5 March 05, 2022 12:00am October 07, 2022 10:42am Start: 03-05-2022 End: 10-07-2022 Ukwqwkxoaz-Oaxaybxe-Ungougyg ol (Breztri Aerosphere) 160-9-4.8 mcg/actuation HFA aerosol inhaler Discontinued 2 NMA INHALATION TWICE A DAY 10.7 March 05, 2022 12:00am October 07, 2022 10:42am Start: 03-05-2022 End: 10-07-2022 Zvdgpgmjse-Twiltrqu-Uesmaxjo ol (Breztri Aerosphere) 160-9-4.8 mcg/actuation HFA aerosol [...] (CHO LECALCIFEROL) TABS as directed CHOLECALCIFEROL TABS [id number] Huber TORRES Cholecalciferol (D3-1000 PO) Take by [...] as needed for muscle spasm/pain CYCLOBENZAPRINE HCL [id number] Huber TORRES diclofenac sodium 0.01 mg/mg topical [...] TBEC One tablet by mouth daily OMEPRAZOLE [id number] Monica Jarrell Turmeric extract (10 sources) Start: [...] One tablet by mouth twice daily AMOXICILLIN [id number] Olivia Meraz SLOT HOST azithromycin 250 mg oral tablet (14 sources) [...] INH 2 puffs twice daily BUDESONIDE-FORMOTEROL FUMARATE [id number] Olivia Meraz LPN Start: 09-06-2016 End: 09-16-2018 [...] 2 puffs inhaled twice daily BUDESONIDE-FORMOTEROL FUMARATE [id number] Huber TORRES Start: 10-31-2015 SYMBICORT 160- 4.5 MCG/ACT AERO 1 puff daily BUDESONIDE-FORMOTEROL FUMARATE [id number] Edyta Nichole DO smoking cessation 12 hr [...] ANTACID CHEW PRN CA CARBONATE-MAG HYDROXIDE CHEW [id number] Huber TORRES Calcium (1 source) Phosphate Binder, Calcium Start: 09-26-2016 take 1 tablet by mouth once daily CALCIUM 600 MG TABS One tablet by mouth daily CALCIUM [id number] Olivia Meraz LPN calcium chloride 0.0014 meq/ml [...] oral at bedtime as needed GUAIFENESIN-CODE INE [id number] Monica Jarrell End: 01-16-2015 CHERATUSSIN AC 100-10 MG/5ML SOLN 1-2 teaspoon oral at bedtime as needed GUAIFENESIN-CODEINE [id number] Jordi Rodriguez MA DULoxetine 20 mg delayed [...] 05, 2019 1:00am October 02, 2022 9:19am Wozpoaqpvtj-Xsfpknxls-Egvcbf er (14 sources) Anticholinergic, Corticosteroid, beta2-Adrenergic Agonist Start: 12-30-2018 End: 02-28-2019 Gzvjiocsmze-Deyjqndze-Crdlqq er (Trelegy Ellipta) 100-62.5-25 mcg blister with device Discontinued 1 NMA INHALATION DAILY 60 11 December 30, 2018 12:00am February 28, 2019 2:14pm Chronic obstructive pulmonary disease, unspecified Start: 12-30-2018 End: 02-28-2019 Ucgpaxhsnhb-Pmgoaldlp-Gezcwp er (Trelegy Ellipta) 100-62.5-25 mcg blister with device Discontinued 1 NMA INHALATION DAILY 60 December 30, 2018 12:00am February 28, 2019 2:14pm Start: 12-30-2018 End: 02-28-2019 Jysqnauxegh-Efapeevvg-Mxqcjx er (Trelegy Ellipta) 100-62.5-25 mcg blister with device Discontinued 1 INH INHALATION DAILY 60 December 30, 2018 12:00am February 28, 2019 2:14pm Start: 12-30-2018 End: 02-28-2019 Zztqgywzglq-Gyplqefap-Ghpzrb er (Trelegy Ellipta) 100-62.5-25 mcg blister with device Discontinued 1 INH INHALATION DAILY 60 December 29, 2018 11:00pm February 28, 2019 1:14pm Folic Acid (2 sources) Start: 07-10-2016 End: 04-22-2017 FOLIC ACID CAPS as directed FOLIC ACID CAPS [id number] Olivia Meraz SLOT HOST Start: 07-10-2016 FOLIC ACID CAP S as directed FOLIC ACID CAPS [id number] Huber Quezada PA 120 actuat formoterol fumarate [...] 07-10-2016 IBUPROFEN 600 MG TABS 12/02 IBUPROFEN [id number] Erin Cowan PROBIOTIC PRODUCT CHEW (2 sources) Start: 07-10-2016 ACIDOPHILUS CH EW as directed PROBIOTIC PRODUCT CHEW [id number] Huber TORRES Start: 07-10-2016 End: 04-22-2017 ACIDOPHILUS CHEW as directed PROBIOTIC PRODUCT CHEW [id number] Olivia Meraz LPN lansoprazole 15 mg delayed [...] 2 sprays 1 time daily MOMETASONE FUROATE [id number] Olivia Meraz LPN MULTIPLE MINERALS-VITAMINS (2 sources) take 2 tablets by mouth once daily CALCIUM & VIT D3 BONE HEALTH LIQD 600-200 MG-Unit; Two tablets by mouth daily MULTIPLE MINERALS-VITAMINS 35154930540 Monica Jarrell End: 10-31-2015 take 2 tablets by mouth once daily CALCIUM & VIT D3 BONE HEALTH LIQD 600-200 MG-Unit; Two tablets by mouth daily MULTIPLE MINERALS-VITAMINS [id number] Edyta Nichole, DO 1 ml naloxone hydrochloride [...] patch, TD daily, sequential Discontinued 0 TD .[facility] 56 August 27, 2021 1:00am August 26, 2022 12:06pm apply 1-21 mg NICOTINE PATCH daily for 28 days; follow with 1-14 mg PATCH daily for 14 days, then 1-7mg PATCH daily for 14 days transdermal Start: 08-27-2021 End: 08-26-2022 apply 1 dose transdermal route once daily, then apply 1 dose transdermal route once daily Nicotine Discontinued 0 TD .[facility] 56 August 27, 2021 1:00am August 26, 2022 12:06pm apply 1-21 mg NICOTINE PATCH daily for 28 days; follow with 1-14 mg PATCH daily for 14 days, then 1-7mg PATCH daily for 14 days transdermal Start: 08-27-2021 End: 08-26-2022 apply 1 dose transdermal route once daily, then apply 1 dose transdermal route once daily Nicotine Discontinued 0 TD .[facility] 56 August 27, 2021 12:00am August 26, 2022 11:06am apply 1-21 mg NICOTINE PATCH daily for 28 days; follow with 1-14 mg PATCH daily for 14 days, then 1-7mg PATCH daily for 14 days transdermal Start: 08-27-2021 apply 1 dose transde rmal route once daily, then apply 1 dose transdermal route once daily Nicotine Active 0 TD .[facility] 56 August 27, 2021 12:00am apply [...] q2 hours PRN smoking urges NICOTINE POLACRILEX [id number] Huber TORRES Non-Formulary Medication (2 sources) Start: [...] tablet by mouth daily OMEGA-3 FATTY ACIDS [id number] Olivia Meraz LPN [place]-3 Fatty Acids (7 sources) Start: 09-21-2018 End: 09-22-2018 take 1000 mg by mouth once daily [place]-3 Fatty Acids Discontinued 1000 MG PO daily September 21, 2018 12:00am September 22, 2018 11:08am Start: 09-21-2018 End: 09-22-2018 take 1000 mg by mouth once daily [place]-3 Fatty Acids Discontinued 1000 MG PO daily September 20, 2018 11:00pm September 22, 2018 10:08am [place]-3 Fatty Acids 1,000 mg capsule (7 sources) Start: 09-21-2018 End: 09-22-2018 take 1 capsule by mouth once daily [place]-3 Fatty Acids 1,000 mg capsule Discontinued 1000 mg PO daily 0 September 21, 2018 12:00am September 22, 2018 11:08am Start: 09-21-2018 End: 09-22-2018 take 1 capsule by mouth once daily [place]-3 Fatty Acids 1,000 mg capsule Discontinued 1000 [...] 3 days, 1/2 x 3 days PREDNISONE [id number] Monica Jarrell 10 actuat tiotropium 0.0025 mg/actuat inhalation spray (20 sources) Anticholinergic Start: 08-19-2023 End: 08-20-2023 take 2 puff(s) by inhalation once daily 2 puff, Inhalation, Daily, First dose on Thu08/19/23 at 2014 Start: 05-19-2019 End: 10-19-2019 take 2.5 ug by inhalation once daily Tiotropium Drifting (Spiriva Respimat) 2.5 mcg/actuation mist Discontinued 2 NMA INHALATION daily 07 18May 19, 2019 7:28am October 19, 2019 9:27am administer at approximately the same time(s) each day Start: 05-19-2019 End: 10-19-2019 take 2.5 ug by inhalation once daily Tiotropium Drifting (Spiriva Respimat) 2.5 mcg/actuation mist Discontinued 2 NMA INHALATION daily May 19, 2019 7:28am October 19, 2019 9:27am administer at approximately the same time(s) each day Start: 05-19-2019 End: 10-19-2019 take 1 puff(s) by inhalation once daily Tiotropium Drifting (Spiriva Respimat) 2.5 mcg/actuation mist Discontinued 2 PUFF INHALATION daily May 19, 2019 7:28am October 19, 2019 9:27am administer at approximately the same time(s) each day Start: 05-19-2019 End: 10-19-2019 take 1 puff(s) by inhalation once daily Tiotropium Drifting (Spiriva Respimat) 2.5 mcg/actuation mist Discontinued 2 PUFF INHALATION daily May 19, 2019 6:28am October 19, 2019 8:27am administer at approximately the same time(s) each day Start: 02-28-2019 End: 05-19-2019 take 2.5 ug by inhalation once daily Tiotropium Drifting (Spiriva Respimat) 2.5 mcg/actuation mist Discontinued 2 NMA INHALATION daily 07 18February 28, 2019 12:00am May 19, 2019 7:28am administer at approximately the same time(s) each day Start: 02-28-2019 End: 05-19-2019 take 2.5 ug by inhalation once daily Tiotropium Drifting (Spiriva Respimat) 2.5 mcg/actuation mist Discontinued 2 NMA INHALATION daily February 28, 2019 12:00am May 19, 2019 7:28am administer at approximately the same time(s) each day Start: 02-28-2019 End: 05-19-2019 take 1 puff(s) by inhalation once daily Tiotropium Drifting (Spiriva Respimat) 2.5 mcg/actuation mist Discontinued 2 PUFF INHALATION daily February 28, 2019 12:00am May 19, 2019 7:28am administer at approximately the same time(s) each day Start: 02-28-2019 End: 05-19-2019 take 1 puff(s) by inhalation once daily Tiotropium Drifting (Spiriva Respimat) 2.5 mcg/actuation mist Discontinued 2 PUFF INHALATION daily February 27, 2019 11:00pm May 19, 2019 6:28am administer at approximately the same time(s) each day Start: 09-21-2018 End: 09-22-2018 take 2.5 ug by inhalation once daily Tiotropium Drifting (Spiriva Respimat) 2.5 mcg/actuation mist Discontinued 2 NMA INHALATION DAILY September 21, 2018 12:00am September 22, 2018 11:07am Start: 09-21-2018 End: 09-22-2018 take 1 puff(s) by inhalation once daily Tiotropium Drifting (Spiriva Respimat) 2.5 mcg/actuation mist Discontinued 2 PUFF INHALATION DAILY September 21, 2018 12:00am September 22, 2018 11:07am Start: 09-21-2018 End: 09-22-2018 take 1 puff(s) by inhalation once daily Tiotropium Drifting (Spiriva Respimat) 2.5 mcg/actuation mist Discontinued 2 PUFF INHALATION DAILY September 20, 2018 11:00pm September 22, 2018 10:07am Start: 11-03-2016 take 2 puff(s) by in halation once daily SPIRIVA RESPIMAT 2.5 MCG/ACT AERS 2 puffs INH daily TIOTROPIUM BROMIDE MONOHYDRATE [id number] Leighton Ruiz 7 actuat umeclidinium 0.0625 mg/actuat [...] MCG/INH AEPB 1 puff INH daily UMECLIDINIUM-VILANTEROL [id number] Carol aCsillas CNP varenicline 1 mg oral tablet (20 [...] mouth once daily EFFEXOR XR 150 MG [id number] One tablet by mouth daily VENLAFAXINE HCL [id number] Monica Jarrell Problems Active Problems Problem Classification [...] Facility Pulmonary Visit Reporton Pulmonary Visit Report [facility] [address] [place] [address] OFFICE VISIT Date of Service: 03/28/25 MR#: [id number] Acct: [id number] Name: VIOLETTA LINDER Rep #: [id number] : 1960 Provider: Sandra Soriano NP Age/Sex: 65/F Location: [facility] Status: Signed Assessment and Plan Assessment and [...] - Chronic obstructive pulmonary disease, unspecified Refilled lprmdjshtk-pojgxaup-ohhkqgfz ol 160-9-4.8 mcg/actuation (Breztri Aerosphere) 2 inhalations [...] Additional Comments: This note was generated with [employer] dictation software. It may contain incorrect words, [...] CT. BRIAN (more content not included)... Normal [facility] Absolute lymphocyte countOrd ered By: CHATO Sandra Christie on 03-21-2025 Lymphocytes Auto (Unsp spec) [#/Vol] 1.66 10*3/uL 0.83-4.51 [facility] Absolute neutrophil countOrd ered By: CHATO Sandraanusha Soriano on 03-21-2025 Neutrophils (Bld) [#/Vol] 5.4 10*3/uL 2.0-7.7 [facility] Automated lymphocyte count a s percentage of total leukocytesOrdered By: CHATO Sandra Celestinevikasvianca on 03-21-2025 Lymphocytes/100 WBC Auto (Unsp spec) 20.8 % 19-41 [facility] Basophil percentageOrdered B y: CHATO Sandra Christie on 03-21-2025 Basophils/100 WBC (Bld) 0.6 % 0-1 [facility] CBC W/Diff, Automatedon Absolute Lymph 1.66 X10 3/uL Normal 0.83-4.51 [facility] Comment on above: Performed By: #### L 100.0100 ####[facility] [address] [place], [place], [address] Absolute Neut 5.4 X10 3/uL Normal 2.0-7.7 [facility] Comment on above: Performed By: #### L 100.0100 ####[facility] [address] [place], [address] Basophils/100 WBC (Bld) 0.6 % Normal 0-1 [facility] Comment on above: Performed By: #### L 100.0100 ####[facility] [address] [place], [address] Eosinophils/100 WBC (Bld) 1.3 % Normal 0-5 [facility] Comment on above: Performed By: #### L 100.0100 ####[facility] [address] [place], [address] Erythrocyte distribution width (RBC) [Ratio] 13.0 % Normal 11.6-14.6 [facility] Comment on above: Performed By: #### L 100.0100 ####[facility] [address] [place], [address] Hematocrit (Bld) [Volume fraction] 45.7 % Normal 37-47 [facility] Comment on above: Performed By: #### L 100.0100 ####[facility] [address] [place], [address] Hemoglobin (Bld) [Mass/Vol] 14.8 g/dL Normal 12.0-15.0 [facility] Comment on above: Performed By: #### L 100.0100 ####[facility] [address] [place], [address] IG% 0.400 Normal 0.0-0.9 [facility] Comment on above: Result Comment: IG% - Immature Granulocytes (promyelocytes, myelocytes and metamyelocytes) > 1% indicates that a LEFT SHIFT is Present. Performed By: #### L 100.0100 ####[facility] [address] [place], [address] Lymphocytes/100 WBC (Bld) 20.8 % Normal 19-41 [facility] Comment on above: Performed By: #### L 100.0100 ####[facility] [address] [place], [address] MCH (RBC) [Entitic mass] 30.8 pg Normal 27.0-32.0 [facility] Comment on above: Performed By: #### L 100.0100 ####[facility] [address] [place], [address] MCHC (RBC) [Mass/Vol] 32.4 g/dL Normal 32-36 [facility] Comment on above: Performed By: #### L 100.0100 ####[facility] [address] [place], [address] MCV (RBC) [Entitic vol] 95.2 fL Normal 81-99 [facility] Comment on above: Performed By: #### L 100.0100 ####[facility] [address] [place], [address] Monocytes/100 WBC (Bld) 8.9 % Normal 0-10 [facility] Comment on above: Performed By: #### L 100.0100 ####[facility] [address] [place], [address] Neutrophils/100 WBC (Bld) 68.0 % Normal 47-70 [facility] Comment on above: Performed By: #### L 100.0100 ####[facility] [address] [place], [address] Nucleated RBC (Bld) [#/Vol] 0 10*3/uL Normal 0-5 [facility] Comment on above: Performed By: #### L 100.0100 ####[facility] [address] [place], [address] Platelet mean volume (Bld) [Entitic vol] 9.5 fL Normal 6.2-12.0 [facility] Comment on above: Performed By: #### L 100.0100 ####[facility] [address] [place], [address] Platelets (Bld) [#/Vol] 284 10*3/uL Normal 150-450 [facility] Comment on above: Performed By: #### L 100.0100 ####[facility] [address] [place], [address] RBC (Bld) [#/Vol] 4.80 10*6/uL Normal 4.2-5.4 [facility] Comment on above: Performed By: #### L 100.0100 ####[facility] [address] [place], [address] RDW SD 45.5 fl High 35.1-43.9 [facility] Comment on above: Performed By: #### L 100.0100 ####[facility] [address] [place], [address] WBC (Bld) [#/Vol] 8.0 10*3/uL Normal 4.4-11.0 [facility] Comment on above: Performed By: #### L 100.0100 ####[facility] [address] [place], [address] Eosinophil percentageOrdered By: CHATO Soriano on 03-21-2025 Eosinophils/100 WBC (Bld) 1.3 % 0-5 [facility] Erythrocyte distribution wid th ratioOrdered By: CHATO Soriano on 03-21-2025 Erythrocyte distribution width (RBC) [Ratio] 13.0 % 11.6-14.6 [facility] Erythrocyte distribution wid th standard deviationOrdered By: CHATO Soriano on 03-21-2025 Erythrocyte distribution width (RBC) [Ratio] 45.5 fl High 35.1-43.9 [facility] Hematocrit Auto (Bld) [Volum e fraction]Ordered By: CHATO Soriano on 03-21-2025 Hematocrit (Bld) [Volume fraction] 45.7 % 37-47 [facility] Hemoglobin measurementOrdere d By: CHATO Soriano on 03-21-2025 Hemoglobin (Bld) [Mass/Vol] 14.8 g/dL 12.0-15.0 [facility] Immature granulocytes/100 WB C Auto (Bld)Ordered By: CHATO Soriano on 03-21-2025 Immature granulocytes/100 WBC (Bld) 0.400 % 0.0-0.9 [facility] Comment on above: IG% - Immature Granu locytes (promyelocytes, myelocytes and metamyelocytes) > 1% indicates that a LEFT SHIFT is Present. MCV (mean corpuscular volume ) determinationOrdered By: CHATO Soriano on 03-21-2025 MCV (RBC) [Entitic vol] 95.2 fL 81-99 [facility] Mean corpuscular hemoglobin (MCH) determinationOrdered By: CHATO Soriano on 03-21-2025 MCH (RBC) [Entitic mass] 30.8 pg 27.0-32.0 [facility] Mean corpuscular hemoglobin concentration (MCHC) determinationOrdered By: CHATO Soriano on 03-21-2025 MCHC (RBC) [Mass/Vol] 32.4 g/dL 32-36 [facility] Mean platelet volume determi nationOrdered By: CHATO Soriano on 03-21-2025 Platelet mean volume (Bld) [Entitic vol] 9.5 fL 6.2-12.0 [facility] Monocyte percentageOrdered B y: CHATO Soriano on 03-21-2025 Monocytes/100 WBC (Bld) 8.9 % 0-10 [facility] Neutrophil percentageOrdered By: CHATO Soriano on 03-21-2025 Neutrophils/100 WBC (Bld) 68.0 % 47-70 [facility] Nucleated red blood cell per centageOrdered By: CHATO Soriano on 03-21-2025 Nucleated RBC/100 WBC (Bld) [Ratio] 0 % 0-5 [facility] Platelet countOrdered By: CHATO Soriano on 03-21-2025 Platelets (Bld) [#/Vol] 284 10*3/uL 150-450 [facility] RBC Auto (Bld) [#/Vol]Ordere d By: CHATO Soriano on 03-21-2025 RBC (Bld) [#/Vol] 4.80 10*6/uL 4.2-5.4 [facility] White blood cell (WBC) count Ordered By: CHAOT Soriano on 03-21-2025 WBC (Bld) [#/Vol] 8.0 10*3/uL 4.4-11.0 [facility] Pulmonary Visit Reporton Pulmonary Visit Report [facility] [place] [address] [place] [address] OFFICE VISIT Date of Service: 02/07/25 MR#: [id number] Acct: [id number] Name: VIOLETTA LINDER Rep #: [id number] : 1960 Provider: Sandra Soriano NP Age/Sex: 64/F Location: [facility].PMW Status: Signed Assessment and Plan Assessment and [...] Additional Comments: This note was generated with [employer] dictation software. It may contain incorrect words, [...] Temp 9 (more content not included)... Normal [facility] Gram Stainon 12-28-2024 GS Acceptable Specimen? Yes (<25 Epithelial cells per/lpf) Gram Stain 2+ Gram positive rods 2+ Gram positive cocci 1+ Epithelial cells 1+ White Blood Cells Normal [facility] Comment on above: Performed By: #### M 100.1999, M100.2400 #### [facility] Laboratory [address] [place], [address] Respiratory Cultureon 2024 RESPC Mixed normal respira tory jennifer. No Streptococcus pneumoniae, beta-hemolytic Streptococcus or Staphylococcus aureus isolated. Normal [facility] Comment on above: Performed By: #### M 100.2000, M100.2400 #### [facility] [address] [facility] [place], [address] Chest PA and Lateralon 12-27 Chest PA and Lateral [facility] Services [address] [place] [address] Chest PA and Lateral MR#: [id number] Acct: [id number] Name: VIOLETTA LINDER Rep #: [id number] : 1960 F 64 From: Gabe pfeiffer MD PCP: Dr. Beata Schwarz MD Status: DEP AMB Study: Chest PA and Lateral Date of Exam: 12/27/24 Exam# [id number] Ordering Dr: Sandra Soriano SEWING MACHINE REPAIRER HELPER- C PROCEDURE: CHEST PA AND LATERAL 12/27/2024 REASON FOR EXAM: SHORTNESS OF BREATH TECHNIQUE: CHEST PA AND LATERAL COMPARISON: Prior study dated November 14, 2024. FINDINGS: Hardware: None Heart: The heart size is normal. Mediastinum: The mediastinal contour is unremarkable. Lungs: Hyperinflation. Lungs are clear. Bones: The bones are unremarkable. RAD/Chest PA and Lateral IMPRESSION: Hyperinflation. The lungs are clear. Reading Location: [place] [address] CC: Dr. Beata Schwarz MD; Sandra Soriano NP Stenotypist: Signed Normal [facility] Gram stainOrdered By: CHATO Soriano on 12-27-2024 Microscopic observation Gram stain Nom (Unsp spec) [facility] Microbial respiratory cultur eOrdered By: CHATO Soriano on 12-27-2024 Microorganism identified Cx Nom (Unsp spec) or Staphylococcus aureus isolated. [facility] Pulmonary Visit Reporton Pulmonary Visit Report [facility] [place] [address] [facility] [address] [place] [address] OFFICE VISIT Date of Service: 12/27/24 MR#: [id number] Acct: [id number] Name: VIOLETTA LINDER Rep #: [id number] : 1960 Provider: Sandra Soriano NP Age/Sex: 64/F Location: [facility].PMW Status: Signed Assessment and Plan Assessment and [...] - Chronic obstructive pulmonary disease, unspecified Refilled twysuvguao-vqncwjjc-owkuvwte ol 160-9-4.8 mcg/actuation (Breztri Aerosphere) 2 inhalations [...] Source Tempor (more content not included)... Normal [facility] Chest PA and Lateralon 11-14 Chest PA and Lateral [facility] Imaging Services [address] [place] [address] Chest PA and Lateral MR#: [id number] Acct: [id number] Name: VIOLETTA LINDER Rep #: [id number] : 1960 F 64 From: August Selby i, MD PCP: Dr. Beata Schwarz MD Status: DEP AMB Study: Chest PA and Lateral Date of Exam: 11/14/24 Exam# [id number] Ordering Dr: Micki Laird SEWING MACHINE REPAIRER HELPER-C PROCEDURE: CHEST PA AND LATERAL 11/14/2024 REASON [...] pneumothorax is seen. Suggest follow-up. Reading Location: [id number] CC: SEWING MACHINE REPAIRER HELPER-C Micki Laird; Dr. Beata Schwarz MD Stenotypist: Signed Normal [facility] Absolute lymphocyte countOrd ered By: Micki Laird on 10-21-2024 Lymphocytes Auto (Unsp spec) [#/Vol] 0.94 10*3/uL 0.83-4.51 [facility] Absolute neutrophil countOrd ered By: Micki aLird on 10-21-2024 Neutrophils (Bld) [#/Vol] 6.7 10*3/uL 2.0-7.7 [facility] Anion gap in Serum or Plasma Ordered By: Micki Laird on 10-21-2024 Anion gap [Moles/Vol] 12 mmol/L 5-15 [facility] Automated lymphocyte count a s percentage of total leukocytesOrdered By: Micki Laird on 10-21-2024 Lymphocytes/100 WBC Auto (Unsp spec) 11.1 % Low 19-41 [facility] BUN/creatinine ratioOrdered By: Micki Laird on 10-21-2024 Urea nitrogen/Creatinine [Mass ratio] 11.2 mg/mg 10-20 [facility] Basophil percentageOrdered B y: Micki Laird on 10-21-2024 Basophils/100 WBC (Bld) 0.5 % 0-1 [facility] Bilirubin, totalOrdered By: Micki Laird on 10-21-2024 Bilirubin [Mass/Vol] 0.41 mg/dL 0.00-1.30 [facility] CBC W/Diff, Automatedon 10-11 Absolute Lymph 0.94 X10 3/uL Normal 0.83-4.51 [facility] Comment on above: Performed By: #### L 500.4050, L503.6550, L503.6150, L100.0100 #### [facility] [address] [place], [address] Absolute Neut 6.7 X10 3/uL Normal 2.0-7.7 [facility] Comment on above: Performed By: #### L 500.4050, L503.6550, L503.6150, L100.0100 #### [facility] [address] [place], [address] Basophils/100 WBC (Bld) 0.5 % Normal 0-1 [facility] Comment on above: Performed By: #### L 500.4050, L503.6550, L503.6150, L100.0100 #### [facility] [address] [place], [address] Eosinophils/100 WBC (Bld) 0.8 % Normal 0-5 [facility] Comment on above: Performed By: #### L 500.4050, L503.6550, L503.6150, L100.0100 #### [facility] [address] [place], [address] Erythrocyte distribution width (RBC) [Ratio] 13.4 % Normal 11.6-14.6 [facility] Comment on above: Performed By: #### L 500.4050, L503.6550, L503.6150, L100.0100 #### [facility] [address] [place], [address] Hematocrit (Bld) [Volume fraction] 43.1 % Normal 37-47 [facility] Comment on above: Performed By: #### L 500.4050, L503.6550, L503.6150, L100.0100 #### [facility] [address] [place], [address] Hemoglobin (Bld) [Mass/Vol] 14.3 g/dL Normal 12.0-15.0 [facility] Comment on above: Performed By: #### L 500.4050, L503.6550, L503.6150, L100.0100 #### [facility] [address] [place], [address] IG% 0.400 Normal 0.0-0.9 [facility] Comment on above: Result Comment: IG% - Immature Granulocytes (promyelocytes, myelocytes and metamyelocytes) > 1% indicates that a LEFT SHIFT is Present. Performed By: #### L 500.4050, L503.6550, L503.6150, L100.0100 #### [facility] [address] [place], [address] Lymphocytes/100 WBC (Bld) 11.1 % Low 19-41 [facility] Comment on above: Performed By: #### L 500.4050, L503.6550, L503.6150, L100.0100 #### [facility] [address] [place], [address] MCH (RBC) [Entitic mass] 31.0 pg Normal 27.0-32.0 [facility] Comment on above: Performed By: #### L 500.4050, L503.6550, L503.6150, L100.0100 #### [facility] [address] [place], [address] MCHC (RBC) [Mass/Vol] 33.2 g/dL Normal 32-36 [facility] Comment on above: Performed By: #### L 500.4050, L503.6550, L503.6150, L100.0100 #### [facility] [address] [place], [address] MCV (RBC) [Entitic vol] 93.5 fL Normal 81-99 [facility] Comment on above: Performed By: #### L 500.4050, L503.6550, L503.6150, L100.0100 #### [facility] [address] [place], [address] Monocytes/100 WBC (Bld) 8.4 % Normal 0-10 [facility] Comment on above: Performed By: #### L 500.4050, L503.6550, L503.6150, L100.0100 #### [facility] [address] [place], [address] Neutrophils/100 WBC (Bld) 78.8 % High 47-70 [facility] Comment on above: Performed By: #### L 500.4050, L503.6550, L503.6150, L100.0100 #### [facility] [address] [place], [address] Nucleated RBC (Bld) [#/Vol] 0 10*3/uL Normal 0-5 [facility] Comment on above: Performed By: #### L 500.4050, L503.6550, L503.6150, L100.0100 #### [facility] [address] [place], [address] Platelet mean volume (Bld) [Entitic vol] 9.0 fL Normal 6.2-12.0 [facility] Comment on above: Performed By: #### L 500.4050, L503.6550, L503.6150, L100.0100 #### [facility] [address] [place], [address] Platelets (Bld) [#/Vol] 285 10*3/uL Normal 150-450 [facility] Comment on above: Performed By: #### L 500.4050, L503.6550, L503.6150, L100.0100 #### [facility] [address] [place], [address] RBC (Bld) [#/Vol] 4.61 10*6/uL Normal 4.2-5.4 [facility] Comment on above: Performed By: #### L 500.4050, L503.6550, L503.6150, L100.0100 #### [facility] [address] [place], [address] RDW SD 45.8 fl High 35.1-43.9 [facility] Comment on above: Performed By: #### L 500.4050, L503.6550, L503.6150, L100.0100 #### [facility] [address] [place], [address] WBC (Bld) [#/Vol] 8.5 10*3/uL Normal 4.4-11.0 [facility] Comment on above: Performed By: #### L 500.4050, L503.6550, L503.6150, L100.0100 #### [facility] [address] [place], [address] Carbon dioxide, total [Moles /volume] in Central venous bloodOrdered By: Micki Laird on 10-21-2024 CO2 [Moles/Vol] 25.9 mmol/L 21.0-32.0 [facility] Chloride assayOrdered By: Ra ese Laird on 10-21-2024 Chloride [Moles/Vol] 100 mmol/L 98-108 [facility] Comprehensive Metabolic Prof ilon 10-21-2024 Albumin [Mass/Vol] 4.3 g/dL Normal 3.4-4.8 [facility] Comment on above: Performed By: #### L 500.4050, L503.6550, L503.6150, L100.0100 ####[facility] [address] [place], [address] Albumin/Globulin [Mass ratio] 1.8 {ratio} Normal 0.9-2.4 [facility] Comment on above: Performed By: #### L 500.4050, L503.6550, L503.6150, L100.0100 ####[facility] [address] [place], [address] ALK PHOS 70 U/L Normal 35-104 [facility] Comment on above: Performed By: #### L 500.4050, L503.6550, L503.6150, L100.0100 ####[facility] [address] [place], [address] ALT [Catalytic activity/Vol] 18 U/L Normal <=34 [facility] Comment on above: Performed By: #### L 500.4050, L503.6550, L503.6150, L100.0100 ####[facility] [address] [place], [address] AST [Catalytic activity/Vol] 24 U/L Normal <=31 [facility] Comment on above: Performed By: #### L 500.4050, L503.6550, L503.6150, L100.0100 ####[facility] [address] [place], [address] Bilirubin [Mass/Vol] 0.41 mg/dL Normal 0.00-1.30 [facility] Comment on above: Performed By: #### L 500.4050, L503.6550, L503.6150, L100.0100 ####[facility] [address] [place], [address] BUN/CRE 11.2 RATIO Normal 10-20 [facility] Comment on above: Performed By: #### L 500.4050, L503.6550, L503.6150, L100.0100 ####[facility] [address] [place], [address] Calcium [Mass/Vol] 9.2 mg/dL Normal 7.6-11.0 [facility] Comment on above: Performed By: #### L 500.4050, L503.6550, L503.6150, L100.0100 ####[facility] [address] [place], [address] Chloride [Moles/Vol] 100 mmol/L Normal 98-108 [facility] Comment on above: Performed By: #### L 500.4050, L503.6550, L503.6150, L100.0100 ####[facility] [address] [place], [address] CO2 [Moles/Vol] 25.9 mmol/L Normal 21.0-32.0 [facility] Comment on above: Performed By: #### L 500.4050, L503.6550, L503.6150, L100.0100 ####[facility] [address] [place], [address] Creatinine [Mass/Vol] 0.74 mg/dL Normal 0.70-1.20 [facility] Comment on above: Performed By: #### L 500.4050, L503.6550, L503.6150, L100.0100 ####[facility] [address] [place], [address] GAP 12 Normal 5-15 [facility] Comment on above: Performed By: #### L 500.4050, L503.6550, L503.6150, L100.0100 ####[facility] [address] [place], [address] GFR/1.73 sq M.predicted among non-blacks MDRD (S/P/Bld) [Vol rate/Area] 90 mL/min/{1.73_m2} Normal >60 [facility] Comment on above: Result Comment: mL/m in/1.73m2 CKD-EPI Creatinine Equation (2020) Performed By: #### L 500.4050, L503.6550, L503.6150, L100.0100 ####[facility] [address] [place], [address] Globulin (S) [Mass/Vol] 2.4 g/dL Normal 2.2-4.2 [facility] Comment on above: Performed By: #### L 500.4050, L503.6550, L503.6150, L100.0100 ####[facility] [address] [place], [address] Glucose [Mass/Vol] 95 mg/dL Normal 70-99 [facility] Comment on above: Performed By: #### L 500.4050, L503.6550, L503.6150, L100.0100 ####[facility] [address] [place], [address] Potassium [Moles/Vol] 4.3 mmol/L Normal 3.3-5.1 [facility] Comment on above: Performed By: #### L 500.4050, L503.6550, L503.6150, L100.0100 ####[facility] [address] [place], [address] Sodium [Moles/Vol] 139 mmol/L Normal 133-145 [facility] Comment on above: Performed By: #### L 500.4050, L503.6550, L503.6150, L100.0100 ####[facility] [address] [place], [address] T PROT 6.7 g/dL Normal 5.9-8.4 [facility] Comment on above: Performed By: #### L 500.4050, L503.6550, L503.6150, L100.0100 ####[facility] [address] [place], [address] Urea nitrogen [Mass/Vol] 8 mg/dL Normal 4-19 [facility] Comment on above: Performed By: #### L 500.4050, L503.6550, L503.6150, L100.0100 ####[facility] [address] [place], [address] Eosinophil percentageOrdered By: Micki Laird on 10-21-2024 Eosinophils/100 WBC (Bld) 0.8 % 0-5 [facility] Erythrocyte distribution wid th (RBC) [Ratio]Ordered By: Micki Laird on 10-21-2024 Erythrocyte distribution width (RBC) [Entitic vol] 45.8 fL High 35.1-43.9 [facility] Erythrocyte distribution wid th ratioOrdered By: Mikciamado Laird on 10-21-2024 Erythrocyte distribution width (RBC) [Ratio] 13.4 % 11.6-14.6 [facility] Erythrocyte distribution wid th standard deviationOrdered By: Jbphh Eitan on 10-21-2024 Erythrocyte distribution width (RBC) [Ratio] 45.8 fl High 35.1-43.9 [facility] Ferritinon 10-21-2024 Ferritin [Mass/Vol] 41 ng/mL Normal 22-378 [facility] Comment on above: Performed By: #### L 500.4050, L503.6550, L503.6150, L100.0100 ####[facility] [address] [place], [address] GFR/1.73 sq M.predicted nathen g non-blacks MDRD (S/P/Bld) [Vol rate/Area]Ordered By: Micki Laird on 10-21-2024 Estimated GFR (MDRD) Non-Af Amer 90 >60 [facility] Comment on above: mL/min/1.73m2 CKD-EP I Creatinine Equation (2020) Glomerular filtration rate ( GFR) estimation/1.73 sq m using serum, plasma, or whole bOrdered By: Micki Laird on 10-21-2024 GFR/1.73 sq M.predicted among non-blacks MDRD (S/P/Bld) [Vol rate/Area] 90 mL/min/{1.73_m2} >60 [facility] Comment on above: mL/min/1.73m2 CKD-EP I Creatinine Equation (2020) Hematocrit Auto (Bld) [Volum e fraction]Ordered By: Micki Laird on 10-21-2024 Hematocrit (Bld) [Volume fraction] 43.1 % 37-47 [facility] Hemoglobin measurementOrdere d By: Micki Laird on 10-21-2024 Hemoglobin (Bld) [Mass/Vol] 14.3 g/dL 12.0-15.0 [facility] Immature granulocytes/100 WB C Auto (Bld)Ordered By: Micki Laird on 10-21-2024 Immature granulocytes/100 WBC (Bld) 0.400 % 0.0-0.9 [facility] Comment on above: IG% - Immature Granu locytes (promyelocytes, myelocytes and metamyelocytes) > 1% indicates that a LEFT SHIFT is Present. Ironon 10-21-2024 Iron [Mass/Vol] 71 ug/dL Normal 50-170 [facility] Comment on above: Order Comment: ADD O N IRON,FE Performed By: #### L 500.4050, L503.6550, L503.6150, L100.0100 ####[facility] [address] [place], [address] Iron (Unsp spec) [Mass/Mass] Ordered By: Micki Laird on 10-21-2024 Iron [Mass/Vol] 71 ug/dL 50-170 [facility] Iron measurement (mass/mass) Ordered By: Micki Laird on 10-21-2024 Iron (Unsp spec) [Mass/Mass] 71 ug/dL 50-170 [facility] Laboratory - Chemistry and C hemistry - challengeOrdered By: Micki Laird on 10-21-2024 AST [Catalytic activity/Vol] 24 U/L <32 [facility] Lymphocytes Auto (Unsp spec) [#/Vol]Ordered By: Micki Laird on 10-21-2024 Lymphocytes (Bld) [#/Vol] 0.94 10*3/uL 0.83-4.51 [facility] Lymphocytes/100 WBC Auto (Un sp spec)Ordered By: Micki Laird on 10-21-2024 Lymphocytes/100 WBC (Bld) 11.1 % Low 19-41 [facility] MCV (mean corpuscular volume ) determinationOrdered By: Micki Laird on 10-21-2024 MCV (RBC) [Entitic vol] 93.5 fL 81-99 [facility] Mean corpuscular hemoglobin (MCH) determinationOrdered By: Micki Laird on 10-21-2024 MCH (RBC) [Entitic mass] 31.0 pg 27.0-32.0 [facility] Mean corpuscular hemoglobin concentration (MCHC) determinationOrdered By: Micki Laird on 10-21-2024 MCHC (RBC) [Mass/Vol] 33.2 g/dL 32-36 [facility] Mean platelet volume determi nationOrdered By: Micki Laird on 10-21-2024 Platelet mean volume (Bld) [Entitic vol] 9.0 fL 6.2-12.0 [facility] Monocyte percentageOrdered B y: Micki Laird on 10-21-2024 Monocytes/100 WBC (Bld) 8.4 % 0-10 [facility] Neutrophil percentageOrdered By: Micki Laird on 10-21-2024 Neutrophils/100 WBC (Bld) 78.8 % High 47-70 [facility] Nucleated red blood cell per centageOrdered By: Micki Laird on 10-21-2024 Nucleated RBC/100 WBC (Bld) [Ratio] 0 % 0-5 [facility] Platelet countOrdered By: Ra ese Laird on 10-21-2024 Platelets (Bld) [#/Vol] 285 10*3/uL 150-450 [facility] Potassium (Unsp spec) [Mass/ Vol]Ordered By: Micki Laird on 10-21-2024 Potassium [Moles/Vol] 4.3 mmol/L 3.3-5.1 [facility] Potassium measurement (mass/ volume)Ordered By: Micki Laird on 10-21-2024 Potassium (Unsp spec) [Mass/Vol] 4.3 mmol/L 3.3-5.1 [facility] RBC Auto (Bld) [#/Vol]Ordere d By: Micki Laird on 10-21-2024 RBC (Bld) [#/Vol] 4.61 10*6/uL 4.2-5.4 [facility] Serum creatinine measurement (mass/volume)Ordered By: Micki Laird on 10-21-2024 Creatinine [Mass/Vol] 0.74 mg/dL 0.70-1.20 [facility] Serum globulin measurementOr dered By: Micki Laird on 10-21-2024 Globulin (S) [Mass/Vol] 2.4 g/dL 2.2-4.2 [facility] Serum glucose measurement (m ass/volume)Ordered By: Micki Laird on 10-21-2024 Glucose [Mass/Vol] 95 mg/dL 70-99 [facility] Serum or plasma alanine price otransferase (ALT) measurementOrdered By: Micki Laird on 10-21-2024 ALT [Catalytic activity/Vol] 18 U/L <35 [facility] Serum or plasma albumin rosibel urement (mass/volume)Ordered By: Micki Laird 10-21-2024 Albumin [Mass/Vol] 4.3 g/dL 3.4-4.8 [facility] Serum or plasma albumin/glob ulin mass ratioOrdered By: Micki Laird 10-21-2024 Albumin/Globulin [Mass ratio] 1.8 {ratio} 0.9-2.4 [facility] Serum or plasma alkaline nia sphatase measurementOrdered By: Micki Laird 10-21-2024 ALP [Catalytic activity/Vol] 70 U/L 35-104 [facility] Serum or plasma calcium rosibel urement (mass/volume)Ordered By: Micki Laird 10-21-2024 Calcium [Mass/Vol] 9.2 mg/dL 7.6-11.0 [facility] Serum or plasma ferritin siena surement (mass/volume)Ordered By: Micki Laird 10-21-2024 Ferritin [Mass/Vol] 41 ng/mL 22-378 [facility] Serum or plasma urea nitroge n measurement (mass/volume)Ordered By: Micki Laird on 10-21-2024 Urea nitrogen [Mass/Vol] 8 mg/dL 4-19 [facility] Sodium levelOrdered By: Carole Laird on 10-21-2024 Sodium [Moles/Vol] 139 mmol/L 133-145 [facility] Total proteinOrdered By: Keanu Laird on 10-21-2024 Protein [Mass/Vol] 6.7 g/dL 5.9-8.4 [facility] White blood cell (WBC) count Ordered By: Micki Laird on 10-21-2024 WBC (Bld) [#/Vol] 8.5 10*3/uL 4.4-11.0 [facility] Pulmonary Visit Reporton Pulmonary Visit Report [facility] [place] [address] [place] [address] OFFICE VISIT Date of Service: 06/24/24 MR#: [id number] Acct: [id number] Name: VIOLETTA LINDER Rep #: [id number] : 1960 Provider: Sandra Soriano NP Age/Sex: 64/F Location: [facility] Status: Signed Assessment and Plan Assessment [...] referral to the smoking cessation clinic. Discussed lytv-xk-ytxs for 11 minutes habits, coping mechanisms, methods to help change desires. All questions were answered. I discussed the option of following up sooner to have accountability for smoking cessation but patient has declined today. Orders: Orders Low Dose CT Lung Screening 12 Months F17.210 - Nicotine dependence, cigarettes, uncomplicated Medications: Refilled pemryrtuie-vcgpcsht-whnoimhe ol 160-9-4.8 mcg/actuation (Breztri Aerosphere) 2 inhalations [...] Temporal A (more content not included)... Normal [facility] Low Dose CT Lung Screeningon 06-16-[address] Lung Screening [facility] Imaging Services [address] [place], [place] [id number] Low Dose CT Lung Screening MR#: [id number] Acct: [id number] Name: VIOLETTA LINDER Rep #: [id number] : 1960 F 64 From: Gabe pfeiffer MD PCP: Dr. Beata Schwarz MD Status: REG [facility] Study: Low Dose CT Lung Screening Date of Exam: 06/16 Exam# [id number] Ordering Dr: Carol Casillas NP SEWING MACHINE REPAIRER HELPER-C :[id number] STUDY: LOW DOSE CT LUNG CANCER SCREENING [...] CC: JIMBO Casillas; Dr. Beata Schwarz MD Stenotypist: Signed Normal [facility] SCRN MAMM (CAD)W/TREVER BILATo n 06-01-2024 SCRN MAMM (CAD)W/TREVER BILAT [facility] Imaging Services [address] [place] [address] SCRN MAMM (CAD)W/TREVER BILAT MR#: [id number] Acct: [id number] Name: VIOLETTA LINDER Rep #: [id number] : 1960 F 64 From: Gabe pfeiffer MD PCP: Dr. Beata Schwarz MD Status: REG CLI Study: SCRN MAMM (CAD)W/TREVER BILAT Date of Exam: 05/14 Exam# [id number] Ordering Dr: Beata Schwarz MD :[id number] MAMMOGRAPHY - BILATERAL SCREENING REASON FOR EXAM: [...] delay biopsy of a clinically suspicious abnormality. [id number] Electronically Signed: Gabe Haddad MD at 11:18 EST Reading Location ID and State: [facility] / [place] , Service support , CC: Dr. Beata Schwarz MD Stenotypist: Signed Normal [facility] Lipid Profileon 05-10-2024 Cholesterol [Mass/Vol] 250 mg/dL High 200 [facility] Comment on above: Result Comment: <200 mg/dL Desirable 200-240 mg/dL Borderline >240 mg/dL High Risk Performed By: #### L 500.4100 #### [facility] [address] [place], [address] Cholesterol in HDL [Mass/Vol] 80 mg/dL Normal [facility] Comment on above: Result Comment: The drugs N-Acetylcysteine and Metamizole may falsely depress this assay. Reference Range HDL <40 mg/dL Low HDL Cholesterol HDL >or= 60 mg/dL High HDL Cholesterol Performed By: #### L 500.4100 #### [facility] [address] [place], [address] Cholesterol in LDL [Mass/Vol] 151 mg/dL High 0-130 [facility] Comment on above: Performed By: #### L 500.4100 #### [facility] [address] [place], [address] Cholesterol in VLDL [Mass/Vol] 19 mg/dL Normal 5-40 [facility] Comment on above: Performed By: #### L 500.4100 #### [facility] [address] [place], [address] Triglyceride [Mass/Vol] 97 mg/dL Normal [facility] Comment on above: Result Comment: The drugs N-Acetylcysteine and Metamizole may falsely depress this assay. Serum Triglycerides Reference Interval Normal <150 mg/dL Borderline high 150 - 199 mg/dL High 200 - 499 mg/dL Very High > or = 500 mg/dL Performed By: #### L 500.4100 #### [facility] [place], [address] CBC + DIFFon 10-14-2023 Baso # 0.02 x10EE3/UL Normal 0.00 - 0.10 [place] Comment on above: Performed By: #### 2 58366 #### [place],[address] [place] [address] 22669 Basophils/100 WBC (Bld) 0.2 % Normal 0.0 - 2.0 [place] Comment on above: Performed By: #### 2 88554 #### [place],[address] [place] [address] 95152 CBC + DIFF Normal [place] Comment on above: Result Comment: CBC- COMPLETE BLOOD COUNT Performed By: #### 2 71506 #### [place],[address] [place] [address] 16110 EO # 0.12 x10EE3/UL Normal 0.00 - 0.50 [place] Comment on above: Performed By: #### 2 50661 #### [place],[address] [place] [address] 33034 Eosinophils/100 WBC (Bld) 1.2 % Normal 0.0 - 7.0 [place] Comment on above: Performed By: #### 2 82991 #### [place],[address] [place] [address] 15839 Erythrocyte distribution width (RBC) [Ratio] 13.6 % Normal 12.0 - 15.6 [place] Comment on above: Performed By: #### 2 58721 #### [place],[address] [place] [address] 93065 Hematocrit (Bld) [Volume fraction] 41.7 % Normal 34.0 - 46.0 [place] Comment on above: Performed By: #### 2 95878 #### [place],[address] [place] [address] 68728 Hemoglobin (Bld) [Mass/Vol] 13.7 g/dL Normal 12.0 - 16.0 [place] Comment on above: Performed By: #### 2 38646 #### [place],[address] [place], [place] [address] Lymph # 2.14 x10EE3/UL Normal 0.80 - 2.80 [place] Comment on above: Performed By: #### 2 05179 #### [place],[address] [place], [place] [address] Lymphocytes/100 WBC (Bld) 20.7 % Normal 20.0 - 45.0 [place] Comment on above: Performed By: #### 2 85367 #### [place],[address] [place] [address] MANUAL DIFF N/A Normal [place] Comment on above: Performed By: #### 2 10052 #### [place],[address] [place] [address] 27130 MCH (RBC) [Entitic mass] 30 pg Normal 27 - 33 [place] Comment on above: Performed By: #### 2 78141 #### [place],[address] [place] [address] 98572 MCHC 33 X10 3 Normal 32 - 36 [place] Comment on above: Performed By: #### 2 75872 #### [place],[address] [place] [address] 55574 MCV (RBC) [Entitic vol] 92 fL Normal 80 - 99 [place] Comment on above: Performed By: #### 2 93196 #### [place],[address] [place] [address] 77014 [place] # 0.88 x10EE3/UL Normal 0.20 - 1.00 [place] Comment on above: Performed By: #### 2 83374 #### [place],[address] [place] [address] 25702 MONOS % 8.6 % Normal 0.0 - 10.0 [place] Comment on above: Performed By: #### 2 73513 #### [place],[address] [place] [address] 60806 Morphology Jorge (Bld) [Interp] N/A Normal [place] Comment on above: Performed By: #### 2 42027 #### [place],[address] [place] [address] 85462 Neut # 7.15 x10EE3/UL High 1.50 - 7.10 [place] Comment on above: Performed By: #### 2 77333 #### [place],[address] [place] [address] 49849 Neutrophils/100 WBC (Bld) 69.4 % Normal 46.0 - 76.0 [place] Comment on above: Performed By: #### 2 80629 #### [place],[address] [place] [address] 27645 PLATELET 308 x10EE3/UL Normal 150 - 450 [place] Comment on above: Performed By: #### 2 98122 #### [place],[address] [place] [address] 56287 Platelet mean volume (Bld) [Entitic vol] 6.8 fL Normal 6.6 - 10.5 [place] Comment on above: Result Comment: AUTO MATED DIFFERENTIAL Performed By: #### 2 98375 #### [place],[address] [place] [address] 81789 RBC 4.53 x 10EE6/UL Normal 4.10 - 5.30 [place] Comment on above: Performed By: #### 2 14552 #### [place],[address] [place] [address] 90699 WBC 10.3 x 10EE3/UL Normal 4.5 - 10.8 [place] Comment on above: Performed By: #### 2 07761 #### [place],[address] [place] [address] 82175 CHEST 2 VIEWSon 10-14-2023 CHEST [address] [address] Patient: VIOLETTA LINDER Phone#: : 1960 Age: 63 Gender: F Pt. Type: ER Account: [id number] Location: [facility] Ordering: TARA LEON Exam Date: 10/14/2023/18:41 Family Phys: EDYTA NICHOLE Charge Code: 501054 Physician: [place] Order #: [id number] Dose#: PROCEDURE: X-RAY CHEST 2 VIEWS COMPARISON: [facility], XR, CHEST 2 VIEWS, 07/06/2023, 11:38. INDICATIONS: [...] Herrera MD on 10/14/2023 at 18:51 Normal [place] CMP with eGFRon 10-14-2023 AGE 63 years Normal [place] Comment on above: Performed By: #### 2 42666 #### [place],[address] [place] [address] 47144 Albumin [Mass/Vol] 4.1 g/dL Normal 3.4 - 5.0 [place] Comment on above: Performed By: #### 2 62618 #### [place],[address] [place] [address] 90343 Albumin/Globulin [Mass ratio] 1.2 {ratio} Normal 0.9 - 1.6 [place] Comment on above: Performed By: #### 2 89778 #### [place],[address] [place] [address] 26472 ALK PHOS 81 U/L Normal 46 - 116 [place] Comment on above: Performed By: #### 2 13628 #### [place],[address] [place] [address] 87206 ALT [Catalytic activity/Vol] 29 U/L Normal 16 - 63 [place] Comment on above: Performed By: #### 2 99531 #### [place],[address] [place] [address] 53710 Anion gap [Moles/Vol] 10 mmol/L Normal 10 - 20 [facility] Comment on above: Performed By: #### 2 47739 #### [place],[address] [place] [address] 67575 AST [Catalytic activity/Vol] 19 U/L Normal 13 - 39 [place] Comment on above: Performed By: #### 2 81182 #### [place],[address] [place] [address] 61370 B/C RATIO 20 ratio Normal 0 - 30 [place] Comment on above: Performed By: #### 2 83742 #### [place],[address] [place] [address] 08505 Bilirubin [Mass/Vol] 0.4 mg/dL Normal 0.2 - 1.0 [place] Comment on above: Performed By: #### 2 36646 #### [place],[address] [place] [address] 25289 Calcium [Mass/Vol] 9.4 mg/dL Normal 8.5 - 10.1 [place] Comment on above: Performed By: #### 2 73122 #### [place],[address] [place] [address] 28472 Chloride [Moles/Vol] 100 mmol/L Normal 98 - 107 [place] Comment on above: Performed By: #### 2 66051 #### [place],[address] [place] [address] 03168 CMP with eGFR Normal [place] Comment on above: Result Comment: COMP REHENSIVE METABOLIC PANEL Performed By: #### 2 91208 #### [place],[address] [place] [address] 59397 CO2 [Moles/Vol] 31.2 mmol/L Normal 21.0 - 32.0 [place] Comment on above: Performed By: #### 2 02427 #### [place],[address] [place], [place] [address] Creatinine [Mass/Vol] 0.85 mg/dL Normal 0.55 - 1.02 [place] Comment on above: Performed By: #### 2 19514 #### [place],[address] [place], [place] [address] GFR/1.73 sq M.predicted among non-blacks MDRD (S/P/Bld) [Vol rate/Area] mL/min/{1.73_m2} Normal 60 - 999 [place] Comment on above: Performed By: #### 2 04629 #### [place],[address] [place], [place] [address] Result Comment: ACCO RDING TO THE NATIONAL KIDNEY DISEASE EDUCATION PROGRAM(NKDE), A NORMAL eGFR IS A VALUE GREATER THAN OR EQUAL TO 60 ML/MIN/1.73 SQ METERS. CHRONIC KIDNEY DISEASE: <60mL/MIN/1.73 SQ METERS KIDNEY FAILURE: <15mL/MIN/1.73 SQ METERS THIS TEST SHOULD ONLY BE USED FOR PATIENTS 18 YEARS OF AGE AND OLDER. Globulin (S) [Mass/Vol] 3.5 g/dL Normal 1.5 - 3.8 [place] Comment on above: Performed By: #### 2 59134 #### [place],[address] [place] [address] 57573 Glucose [Mass/Vol] 95 mg/dL Normal 74 - 106 [place] Comment on above: Performed By: #### 2 49569 #### [place],[address] [place] [address] Potassium [Moles/Vol] 4.3 mmol/L Normal 3.5 - 5.1 [facility] Comment on above: Performed By: #### 2 64359 #### [place],[address] [place] [address] Protein [Mass/Vol] 7.6 g/dL Normal 6.4 - 8.2 [place] Comment on above: Performed By: #### 2 52203 #### [place],[address] [place] [address] Sodium [Moles/Vol] 137 mmol/L Normal 136 - 145 [place] Comment on above: Performed By: #### 2 15467 #### [place],[address] [place] [address] Urea nitrogen [Mass/Vol] 17 mg/dL Normal 7 - 18 [place] Comment on above: Performed By: #### 2 59135 #### [place],[address] [place] [address] CORONAVIRUS (SARS) ANTIGEN T ESTon 10-14-2023 EXTERNAL QC DONE? YES Normal [place] Comment on above: Performed By: #### 2 26411 #### [place],[address] [place] [address] INTERNAL CONTROL PASS Normal [place] Comment on above: Performed By: #### 2 74906 #### [place],[address] [place] [address] SARS ANTIGEN Negative Normal NORMAL: NEGATIVE [place] Comment on above: Performed By: #### 2 44282 #### [place],[address] [place] [address] SEND TO ? NO Normal [place] Comment on above: Result Comment: SARS -CoV-2 THIS TEST IS BEING USED UNDER THE FDA EUA PROCEDURE. THIS ASSAY HAS BEEN VALIDATED AT [facility] FOR USE WITH NASAL AND NASOPHARYNGEAL [...] PUBLIC HEALTH AUTHORITIES. Performed By: #### 2 65031 #### [place],[address] [place] [address] 03831 D-DIMER, QUANTITATIVEon 04-0 -2023 D-DIMER QUANT 177 ng/ml Normal 0 - 230 [place] Comment on above: Performed By: #### 2 55744 #### [place],[address] [place] [address] 27298 D-DIMER, QUANTITATIVE Normal [facility] Comment on above: Result Comment: LILIYA T D-DIMER Performed By: #### 2 08082 #### [place],[address] [place] [address] 09959 LACTATEon 10-14-2023 Lactate [Moles/Vol] 0.8 mmol/L Normal 0.4 - 2.0 [place] Comment on above: Performed By: #### 2 13723 #### [place],[address] [place] [address] 74093 TROPONIN I, HIGH SENSITIVITY on 10-14-2023 HS TROPONIN 4.9 pg/mL Normal 0.0 - 51.4 [place] Comment on above: Performed By: #### 2 15989 #### [place],[address] [place] [address] 56048 CARECOORDon 08-25-2023 CAR[facility]OORD Patient Choice Patient Name: VIOLETTA LINDER Date of : [address] [facility] [id number] 08-20-2023 [id number] [facility] e Care called, as no response had been received via [employer] at this time. Referral sent to several additional agencies as discharge order noted in [facility]. Pt agreeable to first available agency. 4pm update: [facility] is able to accept. Pt updated. Will send updated documents for SOC tomorrow . Attempted to reach PCP and Dr. Alejo to determine who will follow for home care. Edyta Nichole, pt's pcp will follow for home care. Also her name was updated in [facility], the PCP previously documented was incorrect. [facility] [phone] Spoke with pt at bed side and pt is agreeable to PT (declined/denied OT needs) at home following discharge. Pt requested [facility] and referral was sent. She stated if they are unable to accept, she'll be happy with first accepting agency. [facility] is unable to staff that area with PT at this time. Pt denied DME needs. Normal [facility] [id number] Table Runner tiffany quevedodanyadarlin case for Discharge Needs. Normal [facility] BASIC METABOLIC PANELon 02-0 Anion gap [Moles/Vol] 6 mmol/L Normal 3-13 [facility] Comment on above: Performed By: #### L AB15 #### Distillery Laborer: TRINITY CHASE ([id number]) [facility] ([facility]) [address] [place] [address] Calcium [Mass/Vol] 8.4 mg/dL Normal 8.4-10.4 [facility] Comment on above: Performed By: #### L AB15 #### Distillery Laborer: TRINITY CHASE ([id number]) [facility] [address] [place] [address] [place] Chloride [Moles/Vol] 100 mmol/L Normal 98-107 [facility] Comment on above: Performed By: #### L AB15 #### Distillery Laborer: TRINITY CHASE ([id number]) [facility] ([facility]) [address] [place] [address] [place] CO2 [Moles/Vol] 28 mmol/L Normal 22-30 [facility] Comment on above: Performed By: #### L AB15 #### Distillery Laborer: TRINITY CHASE ([id number]) [facility] ([facility]) [address] [place] [address] [place] Creatinine [Mass/Vol] 0.51 mg/dL Low 0.52-1.04 [facility] Comment on above: Performed By: #### L AB15 #### Distillery Laborer: TRINITY CHASE ([id number]) [facility] ([facility]) [address] [place] [address] [place] GLOMERULAR FILTRATION RATE ML/MIN/1.73 SQ M.PREDICTED >90.0 Normal >60.0 [facility] Comment on above: Result Comment: Calc ulation based on the Chronic Kidney Disease Epidemiology Collaboration (CKD-EPI) equation refit without adjustment for race Performed By: #### L AB15 #### Distillery Laborer: TRINITY CHASE ([id number]) [facility] ([facility]) [address] [place] [address] Glucose [Mass/Vol] 146 mg/dL High 70-100 [facility] Comment on above: Performed By: #### L AB15 #### Distillery Laborer: TRINITY CHASE ([id number]) [facility] ([facility]) [address] [place] [address] Potassium [Moles/Vol] 4.3 mmol/L Normal 3.5-5.1 [facility] Comment on above: Performed By: #### L AB15 #### Distillery Laborer: TRINITY CHASE ([id number]) [facility] ([facility]) [address] [place] [address] Sodium [Moles/Vol] 134 mmol/L Low 135-145 [facility] Comment on above: Performed By: #### L AB15 #### Distillery Laborer: TRINITY CHAES ([id number]) [facility] ([facility]) [address] [place] [address] Urea nitrogen [Mass/Vol] 14 mg/dL Normal 7-17 [facility] Comment on above: Performed By: #### L AB15 #### Distillery Laborer: TRINITY CHASE ([id number]) [facility] ([facility]) [address] [place] [address] Basic metabolic 1998 panelon 08-20-2023 Anion gap [Moles/Vol] 6 mmol/L 3 - 13 mmol/L [facility] Calcium [Mass/Vol] 8.4 mg/dL 8.4 - 10. 4 mg/dL [facility] Chloride [Moles/Vol] 100 mmol/L 98 - 10 7 mmol/L [facility] CO2 [Moles/Vol] 28 mmol/L 22 - 30 mmol/L [facility] Creatinine [Mass/Vol] 0.51 mg/dL Low 0.52 - 1.04 mg/dL [facility] GFR/1.73 sq M.predicted MDRD (S/P/Bld) [Vol rate/Area] - PINF [facility] Comment on above: Calculation based on the Chronic Kidney Disease Epidemiology Collaboration (CKD-EPI) equation refit without adjustment for race Glucose [Mass/Vol] 146 mg/dL High 70 - 100 mg/dL [facility] Interpretation and review of laboratory results Abnormal [facility] Potassium [Moles/Vol] 4.3 mmol/L 3.5 - 5.1 mmol/L [facility] Sodium [Moles/Vol] 134 mmol/L Low 135 - 145 mmol/L [facility] Urea nitrogen [Mass/Vol] 14 mg/dL 7 - 17 mg/dL [facility] CARECOORDon 08-20-2023 [facility] Managment [facility] Assessment Date: 08/20/2023 Patient Name: Violetta Linder : 1960 Patient Information Source of Information: Patient Cognition/Language: WFL - Within Functional Limits Permission given to speak with patient sales representative graphic art/caregiver as indicated: Confirmation of Payer with patient/family: Yes Payer Name: [employer] [place]: No Confirmation of Primary Care Physician: Confirmed [...] Living Prescription Coverage: Yes Pharmacy Used: [facility] Medication Management: Independent Transportation/Shopping: Independent Transportation [...] home care at discharge and is requesting [facility]. FRITZ Jules made aware. Pt denies any other needs from tcc. Anticipate possible dc home tomorrow if medically stable. Ximena Albarado RN Normal [facility] CBC W Auto Differential pane l (Bld)Ordered By: Santiago Mendoza on 08-20-2023 Basophils (Bld) [#/Vol] 0.0 10*3/uL 0.0 - 0.2 10*3/uL [facility] Basophils/100 WBC (Bld) 0.1 % 0.0 - 2.0 % [facility] Eosinophils (Bld) [#/Vol] 0.0 10*3/uL 0.0 - 0.5 10*3/uL [facility] Eosinophils/100 WBC (Bld) 0.0 % Low 1.0 - 6.0 % [facility] Erythrocyte distribution width (RBC) [Ratio] 13.5 % 11.5 - 14.5 % [facility] Hematocrit (Bld) [Volume fraction] 38.5 % 35.0 - 47.0 % [facility] Hemoglobin (Bld) [Mass/Vol] 12.6 g/dL 11.7 - 16.0 g/dL [facility] Interpretation and review of laboratory results Abnormal [facility] Lymphocytes (Bld) [#/Vol] 0.6 10*3/uL Low 1.0 - 4.3 10*3/uL [facility] Lymphocytes/100 WBC (Bld) 5.3 % Low 20.0 - 40.0 % [facility] MCH (RBC) [Entitic mass] 30.4 pg 26.0 - 34.0 pg [facility] MCHC (RBC) [Mass/Vol] 32.7 % 32.0 - 36.0 % [facility] MCV (RBC) [Entitic vol] 93.0 fL 80.0 - 98.0 fL [facility] Monocytes (Bld) [#/Vol] 0.6 10*3/uL 0.0 - 0.8 10*3/uL [facility] Monocytes/100 WBC (Bld) 5.1 % 2.0 - 10.0 % [facility] [place] Neutrophils (Bld) [#/Vol] 11.1 10*3/uL High 1.8 - 7.0 10*3/uL [facility] Neutrophils/100 WBC (Bld) 89.5 % High 40.0 - 80.0 % [facility] Nucleated RBC/100 WBC (Bld) [Ratio] 0.0 % [facility] Platelet mean volume (Bld) [Entitic vol] 6.9 fL Low 7.4 - 12.4 fL [facility] Platelets (Bld) [#/Vol] 230 10*3/uL 140 - 440 10*3/uL [facility] RBC (Bld) [#/Vol] 4.14 10*6/uL 3.8 - 5.20 10*6/uL [facility] WBC (Bld) [#/Vol] 12.4 10*3/uL High 3.6 - 10.7 10*3/uL [facility] CBC WITH AUTO DIFFERENTIALon 08-20-2023 Basophils (Bld) [#/Vol] 0.0 10*3/uL Normal 0.0-0.2 [facility] Comment on above: Performed By: #### L [id number] ####Distillery Laborer: TRINITY CHASE ([id number])[address] Basophils/100 WBC (Bld) 0.1 % Normal 0.0-2.0 [facility] Comment on above: Performed By: #### L [id number] ####Distillery Laborer: TRINITY CHASE ([id number])[facility])[address] [place] [address] Eosinophils (Bld) [#/Vol] 0.0 10*3/uL Normal 0.0-0.5 [facility] Comment on above: Performed By: #### L [id number] ####Distillery Laborer: TRINITY CHASE ([id number])[facility])[address] [place] [address] Eosinophils/100 WBC (Bld) 0.0 % Low 1.0-6.0 [facility] Comment on above: Performed By: #### L [id number] ####Distillery Laborer: TRINITY CHASE ([id number])[facility])[address] [place] [address] Erythrocyte distribution width (RBC) [Ratio] 13.5 % Normal 11.5-14.5 [facility] Comment on above: Performed By: #### L [id number] ####Distillery Laborer: TRINITY CHASE ([id number])[address] ERYTHROCYTE MEAN CORPUSCULAR HEMOGLOBIN CONCENTRATION (G/DL) BY AUTOMATED 32.7 % Normal 32.0-36.0 [facility] Comment on above: Performed By: #### L [id number] ####Distillery Laborer: TRINITY CHASE ([id number])[address] Hematocrit (Bld) [Volume fraction] 38.5 % Normal 35.0-47.0 [facility] Comment on above: Performed By: #### L [id number] ####Distillery Laborer: TRINITY CHASE ([id number])[address] Hemoglobin (Bld) [Mass/Vol] 12.6 g/dL Normal 11.7-16.0 [facility] Comment on above: Performed By: #### L [id number] ####Distillery Laborer: TRINITY CHASE ([id number])[address] Lymphocytes (Bld) [#/Vol] 0.6 10*3/uL Low 1.0-4.3 [facility] Comment on above: Performed By: #### L [id number] ####Distillery Laborer: TRINITY [id number])[facility])[address] [place] [address] Lymphocytes/100 WBC (Bld) 5.3 % Low 20.0-40.0 [facility] Comment on above: Performed By: #### L [id number] ####Distillery Laborer: TRINITY CHASE ([id number])[facility])[address] [place] [address] MCH (RBC) [Entitic mass] 30.4 pg Normal 26.0-34.0 [facility] Comment on above: Performed By: #### L [id number] ####Distillery Laborer: TRINITY CHASE ([id number])[facility])[address] [place] [address] MCV (RBC) [Entitic vol] 93.0 fL Normal 80.0-98.0 [facility] Comment on above: Performed By: #### L [id number] ####Distillery Laborer: TRINITY CHASE ([id number])[facility])[address] [place] [address] Monocytes (Bld) [#/Vol] 0.6 10*3/uL Normal 0.0-0.8 [facility] Comment on above: Performed By: #### L [id number] ####Distillery Laborer: TRINITY CHASE ([id number])[facility])[address] [place] [address] Monocytes/100 WBC (Bld) 5.1 % Normal 2.0-10.0 [facility] Comment on above: Performed By: #### L [id number] ####Distillery Laborer: TRINITY CHASE ([id number])[facility])[address] [place] [address] Neutrophils (Bld) [#/Vol] 11.1 10*3/uL High 1.8-7.0 [facility] Comment on above: Performed By: #### L [id number] ####Distillery Laborer: TRINITY CHASE ([id number])[facility])[address] [place] [address] Neutrophils/100 WBC (Bld) 89.5 % High 40.0-80.0 [facility] Comment on above: Performed By: #### L [id number] ####Distillery Laborer: TRINITY CHASE ([id number])[facility])[address] [place] [address] NRBC (PER 100 WBCS) BY AUTOMATED COUNT 0.0 /100 WBCs Normal 0.0-2.0 [facility] Comment on above: Performed By: #### L [id number] ####Distillery Laborer: TRINITY CHASE ([id number])[facility])[address] [place] [address] Platelet mean volume (Bld) [Entitic vol] 6.9 fL Low 7.4-12.4 [facility] Comment on above: Performed By: #### L [id number] ####Distillery Laborer: TRINITY CHASE ([id number])[facility])[address] [place] [address] Platelets (Bld) [#/Vol] 230 10*3/uL Normal 140-440 [facility] Comment on above: Performed By: #### L [id number] ####Distillery Laborer: TRINITY CHASE ([id number])[facility])[address] [place] [address] RBC (Bld) [#/Vol] 4.14 10*6/uL Normal 3.8-5.20 [facility] Comment on above: Performed By: #### L [id number] ####Distillery Laborer: TRINITY CHASE ([id number])[facility])[address] [place] [address] WBC (Bld) [#/Vol] 12.4 10*3/uL High 3.6-10.7 [facility] Comment on above: Performed By: #### L [id number] ####Distillery Laborer: TRINITY CHASE ([id number])[facility])[address] [place] [address] Laboratory - Coagulationon 0 2-08-2024 PT Coag (Bld) [Time] 10.6 s 9.0 - 1 2.0 s [facility] PROTHROMBIN TIMEon INR Coag (PPP) [Relative time] [...] Myocardial Infarction Performed By: #### Idalmis [id number] ####Distillery Laborer: TRINITY CHASE ([id number])[address] PT Coag (PPP) [Time] 10.6 s Normal 9.0-12.0 [facility] Comment on above: Order Comment: If pa tient on coumadin within 4 days prior. Performed By: #### Idalmis [id number] ####Distillery Laborer: TRINITY CHASE ([id number])[facility])[address] [place] [address] PT Coag (Bld) [Time]on 08-20 INR Coag (PPP) [Relative time] 1.0 {INR} 0.9 - 1.1 [facility] Comment on above: Recommended Anticoag ulant Therapy: [...] Interpretation and review of laboratory results Normal [facility] Consulton 08-19-2023 Consult [facility] nsult Patient - Violetta Linder, [...] Arthritis Asthma COPD (chronic obstructive pulmonary disease) ([facility]) Past Surgical History: Past Surgical [...] barriers include . [facility] No Panel Informationon 08-19 There is no interpre tation needed for this exam. IMAGING Nursing Noteon 08-19-2023 Nursing Note Assisted pt to turn onto left side [facility] Nursing Note Called for family to come back to see pt per pt request [facility] Nursing Note Called and provided update to family listed in chart for this visit [facility] Nursing Note Assisted pt to repos ition in bed [facility] Op Noteon 08-19-2023 Op Note OPERATIVE [...] oh subcu Dermabond dank [facility] ECG 12-LEADon 08-13-2023 ECG 12-LEAD IMPRESSION: Sinus rhythm Right axis deviation Consider anteroseptal infarct Electronically Signed On 08-13-2023 13:35:28 EST by August Lowe [facility] PREPROCINSon 08-12-2023 PREPROCINS Medication List Accurate as of August 12, 2023 1:27 PM. Always use your most recent med list. albuterol 108 (90 Base) MCG/ACT inhaler Notes to patient: Ok to take if needed day of surgery BreztrSimulScribe 160-9-4.8 MCG/ACT aerosol Generic drug: Xqjvroe-Kscbfrjbiei-Fasudwqt ol Medication Adjustments for Surgery: Take morning [...] your scheduled surgery time. Please bring your [facility] Surgical folder and medication list with you [...] sports drink such as Gatorade or Powerade. CITY [employer]ER AND PARKING IN THE MAIN DECK ARE [...] [place] EMERGENCY REPORTon 3 EMERGENCY REPORT [facility] EMERGENCY ROOM REPORT NAME ACCOUNT SEX AGE ADMIT DISCHARGE PT MED. RECORD# NUMBER DATE DATE TYPE NIYA [id number] Xiang 63 07/06/23 07/06/23 3 VIOLETTA [id number] ROOM: ER DATE OF : 1960 DICTATING [...] Andrews Lomas MD 07/06/23 14:50 JOB #: [id number] Transcribed By: [email or web address] 07/07/23 09:45 Electronically signed by: FELIPE Lomas M.D. 07/11/23 07:20 Page 2 of 2 NIYAVIOLETTA COATES Emergency Room Report Normal [place] CHEST 2 VIEWSon 07-06-2023 CHEST 2 VIEWS [place] [address] Patient: VIOLETTA LINDER Phone#: : 1960 Age: 63 Gender: F Pt. Type: ER Account: [id number] Location: [facility] Ordering: ANDREWS LOMAS Exam Date: 07/06/2023/11:38 Family Phys: EDYTA NICHOLE Charge Code: [id number] Physician: [place] Order #: [id number] Dose#: PROCEDURE: X-RAY CHEST 2 VIEWS COMPARISON: [facility], XR, CHEST 2 VIEWS, 11/12/2021, 10:02. INDICATIONS: [...] Genao MD on 07/06/2023 at 13:08 Normal [place] CORONAVIRUS (SARS) ANTIGEN T ESTon 07-06-2023 EXTERNAL QC DONE? YES Normal [place] Comment on above: Performed By: #### 2 14435 #### [place],[address] [place] [address] 490[address] INTERNAL CONTROL PASS Normal [place] Comment on above: Performed By: #### 2 37182 #### [place],[address] [place] [address] 14199 SARS ANTIGEN Negative Normal NORMAL: NEGATIVE [place] Comment on above: Performed By: #### 2 56078 #### [place],[address] [place] [address] 79699 SEND TO IC? NO Normal [place] Comment on above: Result Comment: SARS -CoV-2 THIS TEST IS BEING USED UNDER THE FDA EUA PROCEDURE. THIS ASSAY HAS BEEN VALIDATED AT [facility] FOR USE WITH NASAL AND NASOPHARYNGEAL [...] PUBLIC HEALTH AUTHORITIES. Performed By: #### 2 33541 #### [place],[address] [place] [address] 92648 INFLUENZA VIRUS RAPID A/Bon 07-06-2023 INFLUENZA VIRUS [...] TO THREE DAYS. RESULT CRITICAL? NO Normal [place] Comment on above: Performed By: #### 2 12542 #### [place],[address] [place] [address] 80678 3D MAMM BILAT SCREENon 05-18 3D MAMM BILAT SCREEN [address] [address] Patient: VIOLETTA LINDER Phone#: : 1960 Age: 63 Gender: F Pt. Type: Account: [id number] Location: [facility] Ordering: BEATA SCHWARZ Exam Date: 05/15/2023/14:58 Family Phys: Charge Code: [id number] Physician: [place] Order #: [id number] Dose#: PROCEDURE: BILATERAL SCREENING BREAST TOMOSYNTHESIS MAMMOGRAM WITH CAD COMPARISON: [facility], 3D BILAT SCREEN, 05/09/2022, 13:49. INDICATIONS: Screening. [...] Genao MD on 05/15/2023 at 15:50 Normal [place] BMP with eGFRon 03-31-2023 AGE 63 years Normal [place] Comment on above: Performed By: #### 2 53262 #### [place],[address] [place] [address] 22462 Anion gap [Moles/Vol] 13 mmol/L Normal 10 - 20 [facility] Comment on above: Performed By: #### 2 41548 #### [place],[address] [place] [address] 56724 BMP with eGFR Normal [place] Comment on above: Result Comment: BASI C METABOLIC PANEL Performed By: #### 2 57258 #### [place],[address] [place] [address] 73947 Calcium [Mass/Vol] 8.7 mg/dL Normal 8.5 - 10.1 [place] Comment on above: Performed By: #### 2 74935 #### [place],[address] [place] [address] 40249 Chloride [Moles/Vol] 106 mmol/L Normal 98 - 107 [place] Comment on above: Performed By: #### 2 08364 #### [place],[address] [place] [address] 63884 CO2 [Moles/Vol] 28.4 mmol/L Normal 21.0 - 32.0 [place] Comment on above: Performed By: #### 2 02292 #### [place],[address] [place] [address] 89303 Creatinine [Mass/Vol] 0.61 mg/dL Normal 0.55 - 1.02 [place] Comment on above: Performed By: #### 2 48059 #### [place],[address] [place] [address] GFR/1.73 sq M.predicted among non-blacks MDRD (S/P/Bld) [Vol rate/Area] mL/min/{1.73_m2} Normal 60 - 999 [place] Comment on above: Performed By: #### 2 10198 #### [place],[address] [place], [place] [address] Result Comment: ACCO RDING TO THE NATIONAL KIDNEY DISEASE EDUCATION PROGRAM(NKDE), A NORMAL eGFR IS A VALUE GREATER THAN OR EQUAL TO 60 ML/MIN/1.73 SQ METERS. CHRONIC KIDNEY DISEASE: <60mL/MIN/1.73 SQ METERS KIDNEY FAILURE: <15mL/MIN/1.73 SQ METERS THIS TEST SHOULD ONLY BE USED FOR PATIENTS 18 YEARS OF AGE AND OLDER. Glucose [Mass/Vol] 124 mg/dL High 74 - 106 [place] Comment on above: Performed By: #### 2 01687 #### [place],[address] [place] [address]60 Potassium [Moles/Vol] 4.6 mmol/L Normal 3.5 - 5.1 [facility] Comment on above: Performed By: #### 2 86755 #### [place],[address] [place] [address] 64900 Sodium [Moles/Vol] 143 mmol/L Normal 136 - 145 [place] Comment on above: Performed By: #### 2 93122 #### [place],[address] [place] [address] 36016 Urea nitrogen [Mass/Vol] 10 mg/dL Normal 7 - 18 [place] Comment on above: Performed By: #### 2 86332 #### [place],[address] [place] [address] CBC + DIFFon 03-31-2023 Baso # 0.00 x10EE3/UL Normal 0.00 - 0.10 [place] Comment on above: Performed By: #### 2 28031 #### [place],[address] [place] [address] 91309 Basophils/100 WBC (Bld) 0.1 % Normal 0.0 - 2.0 [place] Comment on above: Performed By: #### 2 61922 #### [place],[address] [place] [address] CBC + DIFF Normal [place] Comment on above: Result Comment: CBC- COMPLETE BLOOD COUNT Performed By: #### 2 09816 #### [place],[address] [place] [address] EO # 0.00 x10EE3/UL Normal 0.00 - 0.50 [place] Comment on above: Performed By: #### 2 31878 #### [place],[address] [place] [address] 53503 Eosinophils/100 WBC (Bld) 0.0 % Normal 0.0 - 7.0 [place] Comment on above: Performed By: #### 2 62824 #### [place],[address] [place], [place] [address] Erythrocyte distribution width (RBC) [Ratio] 13.8 % Normal 12.0 - 15.6 [place] Comment on above: Performed By: #### 2 03651 #### [place],[address] [place] [address] Hematocrit (Bld) [Volume fraction] 38.5 % Normal 34.0 - 46.0 [place] Comment on above: Performed By: #### 2 45347 #### [place],[address] [place], [place] [address] Hemoglobin (Bld) [Mass/Vol] 12.8 g/dL Normal 12.0 - 16.0 [place] Comment on above: Performed By: #### 2 62737 #### [place],[address] [place] [address] Lymph # 0.60 x10EE3/UL Low 0.80 - 2.80 [place] Comment on above: Performed By: #### 2 46642 #### [place],[address] [place] [address] Lymphocytes/100 WBC (Bld) 7.7 % Low 20.0 - 45.0 [place] Comment on above: Performed By: #### 2 27565 #### [place],[address] [place] [address] MANUAL DIFF N/A Normal [place] Comment on above: Performed By: #### 2 15480 #### [place],[address] [place] [address] MCH (RBC) [Entitic mass] 32 pg Normal 27 - 33 [place] Comment on above: Performed By: #### 2 34740 #### [place],[address] [place] [address] MCHC 33 X10 3 Normal 32 - 36 [place] Comment on above: Performed By: #### 2 38887 #### [place],[address] [place], [place] [address] MCV (RBC) [Entitic vol] 95 fL Normal 80 - 99 [place] Comment on above: Performed By: #### 2 10336 #### [place],[address] [place], [place] [address] [place] # 0.20 x10EE3/UL Normal 0.20 - 1.00 [place] Comment on above: Performed By: #### 2 37856 #### [place],[address],[place] [address] MONOS % 2.3 % Normal 0.0 - 10.0 [place] Comment on above: Performed By: #### 2 12675 #### [place],[address] [place] [address] 61304 Morphology Jorge (Bld) [Interp] N/A Normal [place] Comment on above: Result Comment: {CD] Performed By: #### 2 74362 #### [place],[address] [place] [address] 67703 Neut # 6.60 x10EE3/UL Normal 1.50 - 7.10 [place] Comment on above: Performed By: #### 2 52648 #### [place],[address] [place] [address] 96622 Neutrophils/100 WBC (Bld) 89.9 % High 46.0 - 76.0 [place] Comment on above: Performed By: #### 2 04715 #### [place],[address] [place], [place] [address] PLATELET 266 x10EE3/UL Normal 150 - 450 [place] Comment on above: Performed By: #### 2 48985 #### [place],[address] [place] [address] 95268 Platelet mean volume (Bld) [Entitic vol] 7.3 fL Normal 6.6 - 10.5 [place] Comment on above: Result Comment: AUTO MATED DIFFERENTIAL Performed By: #### 2 90695 #### [place],[address] [place] [address] 80587 RBC 4.06 x 10EE6/UL Low 4.10 - 5.30 [place] Comment on above: Performed By: #### 2 41440 #### [place],[address] [place] [address]109 WBC 7.4 x 10EE3/UL Normal 4.5 - 10.8 [place] Comment on above: Performed By: #### 2 58971 #### [place],[address] [place] [address] CORONAVIRUS PCR - [facility] 03-31-2023 SARS-CoV-2 (COVID-19) RNA MUSTAPHA+probe Ql (Unsp spec) Negative Normal NORMAL: NEGATIVE [place] Comment on above: Performed By: #### 2 77583 #### [place],[address] [place] [address] SEND TO IC? NO Normal [place] Comment on above: Result Comment: RESU LTS FAXED TO INFECTION CONTROL. SARS-CoV-2 THIS TEST IS BEING USED UNDER THE FDA EUA PROCEDURE. THIS ASSAY HAS BEEN VALIDATED IN THE [facility] FOR USE WITH NASOPHARYNGEAL SPECIMENS IN [facility]. INTERPRETIVE DATA LABORATORY TEST RESULTS SHOULD ALWAYS [...] PUBLIC HEALTH AUTHORITIES. Performed By: #### 2 42088 #### [place],[address] [place] [address] TROPONIN I, HIGH SENSITIVITY on 03-31-2023 HS TROPONIN <4.0 Normal 0.0 - 51.4 [place] Comment on above: Performed By: #### 2 89507 #### [place],[address] [place] [address] HS TROPONIN <4.0 Normal 0.0 - 51.4 [place] Comment on above: Performed By: #### 2 17985 #### [place],[address] [place] [address] CBC + DIFFon 03-30-2023 Baso # 0.00 x10EE3/UL Normal 0.00 - 0.10 [place] Comment on above: Performed By: #### 2 80152 #### [place],[address] [place], [place] [address] Basophils/100 WBC (Bld) 0.1 % Normal 0.0 - 2.0 [place] Comment on above: Performed By: #### 2 08891 #### [place],[address] [place] [address] CBC + DIFF Normal [place] Comment on above: Result Comment: CBC- COMPLETE BLOOD COUNT Performed By: #### 2 33615 #### [place],[address] [place] [address] EO # 0.00 x10EE3/UL Normal 0.00 - 0.50 [place] Comment on above: Performed By: #### 2 73229 #### [place],[address] [place], [place] [address] Eosinophils/100 WBC (Bld) 0.0 % Normal 0.0 - 7.0 [place] Comment on above: Performed By: #### 2 40766 #### [place],[address] [place] [address] Erythrocyte distribution width (RBC) [Ratio] 13.5 % Normal 12.0 - 15.6 [place] Comment on above: Performed By: #### 2 37087 #### [place],[address] [place] [address] 00103 Hematocrit (Bld) [Volume fraction] 40.8 % Normal 34.0 - 46.0 [place] Comment on above: Performed By: #### 2 93474 #### [place],[address] [place] [address] 18359 Hemoglobin (Bld) [Mass/Vol] 13.3 g/dL Normal 12.0 - 16.0 [place] Comment on above: Performed By: #### 2 09713 #### [place],[address] [place] [address] Lymph # 0.50 x10EE3/UL Low 0.80 - 2.80 [place] Comment on above: Performed By: #### 2 71572 #### [place],[address] [place], [place] [address] Lymphocytes/100 WBC (Bld) 4.3 % Low 20.0 - 45.0 [place] Comment on above: Performed By: #### 2 14012 #### [place],[address] [place] [address] 58660 MANUAL DIFF N/A Normal [place] Comment on above: Performed By: #### 2 66741 #### [place],[address] [place], [place] [address] MCH (RBC) [Entitic mass] 31 pg Normal 27 - 33 [place] Comment on above: Performed By: #### 2 16787 #### [place],[address] [place] [address] 07458 MCHC 33 X10 3 Normal 32 - 36 [place] Comment on above: Performed By: #### 2 28187 #### [place],[address] [place] [address] 08544 MCV (RBC) [Entitic vol] 95 fL Normal 80 - 99 [place] Comment on above: Performed By: #### 2 46053 #### [place],[address] [place] [address] 46442 [place] # 0.60 x10EE3/UL Normal 0.20 - 1.00 [place] Comment on above: Performed By: #### 2 06539 #### [place],[address] [place] [address] 46610 MONOS % 5.3 % Normal 0.0 - 10.0 [place] Comment on above: Performed By: #### 2 22072 #### [place],[address] [place] [address] 07110 Morphology Ojrge (Bld) [Interp] N/A Normal [place] Comment on above: Result Comment: {CD] Performed By: #### 2 78899 #### [place],[address] [place] [address] 81379 Neut # 9.70 x10EE3/UL High 1.50 - 7.10 [place] Comment on above: Performed By: #### 2 60019 #### [place],[address] [place] [address] 16855 Neutrophils/100 WBC (Bld) 90.3 % High 46.0 - 76.0 [place] Comment on above: Performed By: #### 2 76528 #### [place],[address] [place] [address] 64780 PLATELET 304 x10EE3/UL Normal 150 - 450 [place] Comment on above: Performed By: #### 2 68081 #### [place],[address] [place] [address] 33720 Platelet mean volume (Bld) [Entitic vol] 7.2 fL Normal 6.6 - 10.5 [place] Comment on above: Result Comment: AUTO MATED DIFFERENTIAL Performed By: #### 2 70470 #### [place],[address] [place] [address] 51257 RBC 4.31 x 10EE6/UL Normal 4.10 - 5.30 [place] Comment on above: Performed By: #### 2 41491 #### [place],[address] [place] [address] 12113 WBC 10.8 x 10EE3/UL Normal 4.5 - 10.8 [place] Comment on above: Performed By: #### 2 89905 #### [place],[address] [place] [address] 45209 CMP with eGFRon 03-30-2023 AGE 63 years Normal [place] Comment on above: Performed By: #### 2 47483 #### [place],[address] [place] [address] 27701 Albumin [Mass/Vol] 3.9 g/dL Normal 3.4 - 5.0 [place] Comment on above: Performed By: #### 2 03835 #### [place],[address] [place], [place] [address] Albumin/Globulin [Mass ratio] 1.3 {ratio} Normal 0.9 - 1.6 [place] Comment on above: Performed By: #### 2 05713 #### [place],[address] [place] [address] 10012 ALK PHOS 70 U/L Normal 46 - 116 [place] Comment on above: Performed By: #### 2 23268 #### [place],[address] [place] [address] 76510 ALT [Catalytic activity/Vol] 27 U/L Normal 14 - 59 [place] Comment on above: Performed By: #### 2 91105 #### [place],[address] [place] [address] 73902 Anion gap [Moles/Vol] 12 mmol/L Normal 10 - 20 [facility] Comment on above: Performed By: #### 2 75489 #### [place],[address] [place] [address] 53405 AST [Catalytic activity/Vol] 14 U/L Normal 13 - 39 [place] Comment on above: Performed By: #### 2 06802 #### [place],[address] [place] [address] 58703 B/C RATIO 21 ratio Normal 0 - 30 [place] Comment on above: Performed By: #### 2 15795 #### [place],[address] [place] [address] 38150 Bilirubin [Mass/Vol] 0.2 mg/dL Normal 0.2 - 1.0 [place] Comment on above: Performed By: #### 2 65060 #### [place],[address] [place], [place] [address] Calcium [Mass/Vol] 8.8 mg/dL Normal 8.5 - 10.1 [place] Comment on above: Performed By: #### 2 47534 #### [place],[address] [place], [place] [address] Chloride [Moles/Vol] 100 mmol/L Normal 98 - 107 [place] Comment on above: Performed By: #### 2 92258 #### [place],[address] [place] [address] 83318 CMP with eGFR Normal [place] Comment on above: Result Comment: COMP REHENSIVE METABOLIC PANEL Performed By: #### 2 64911 #### [place],[address] [place] [address] 82554 CO2 [Moles/Vol] 29.4 mmol/L Normal 21.0 - 32.0 [place] Comment on above: Performed By: #### 2 81063 #### [place],[address] [place] [address] 70903 Creatinine [Mass/Vol] 0.85 mg/dL Normal 0.55 - 1.02 [place] Comment on above: Performed By: #### 2 74127 #### [place],[address] [place] [address] 09874 GFR/1.73 sq M.predicted among non-blacks MDRD (S/P/Bld) [Vol rate/Area] mL/min/{1.73_m2} Normal 60 - 999 [place] Comment on above: Performed By: #### 2 46652 #### [place],[address] [place] [address] Result Comment: ACCO RDING TO THE NATIONAL KIDNEY DISEASE EDUCATION PROGRAM(NKDE), A NORMAL eGFR IS A VALUE GREATER THAN OR EQUAL TO 60 ML/MIN/1.73 SQ METERS. CHRONIC KIDNEY DISEASE: <60mL/MIN/1.73 SQ METERS KIDNEY FAILURE: <15mL/MIN/1.73 SQ METERS THIS TEST SHOULD ONLY BE USED FOR PATIENTS 18 YEARS OF AGE AND OLDER. Globulin (S) [Mass/Vol] 3.1 g/dL Normal 1.5 - 3.8 [place] Comment on above: Performed By: #### 2 57254 #### [place],[address] [place] [address] 44064 Glucose [Mass/Vol] 117 mg/dL High 74 - 106 [place] Comment on above: Performed By: #### 2 33252 #### [place],[address] [place] [address] 33632 Potassium [Moles/Vol] 4.7 mmol/L Normal 3.5 - 5.1 [facility] Comment on above: Performed By: #### 2 03445 #### [place],[address] [place] [address] 54127 Protein [Mass/Vol] 7.0 g/dL Normal 6.4 - 8.2 [place] Comment on above: Performed By: #### 2 44903 #### [place],[address] [place] [address] 94607 Sodium [Moles/Vol] 137 mmol/L Normal 136 - 145 [place] Comment on above: Performed By: #### 2 24786 #### [place],[address] [place] [address] 80278 Urea nitrogen [Mass/Vol] 18 mg/dL Normal 7 - 18 [place] Comment on above: Performed By: #### 2 66933 #### [place],[address] [place] [address] 32511 CORONAVIRUS (SARS) ANTIGEN T ESTon 03-30-2023 EXTERNAL QC DONE? YES Normal [place] Comment on above: Performed By: #### 2 90671 #### [place],[address] [place] [address] INTERNAL CONTROL PASS Normal [place] Comment on above: Performed By: #### 2 92914 #### [place],[address] [place] [address] 59786 SARS ANTIGEN Negative Normal NORMAL: NEGATIVE [place] Comment on above: Performed By: #### 2 30971 #### [place],[address] [place], [place] [address] SEND TO ? YES Normal [place] Comment on above: Result Comment: SARS -CoV-2 THIS TEST IS BEING USED UNDER THE FDA EUA PROCEDURE. THIS ASSAY HAS BEEN VALIDATED AT [facility] FOR USE WITH NASAL AND NASOPHARYNGEAL [...] PUBLIC HEALTH AUTHORITIES. Performed By: #### 2 97343 #### [facility],[address] [place] [address] CT CHEST (PE PROTOCOL)on CT CHEST (PE PROTOCOL) [place] [address] Patient: VIOLETTA LINDER Phone#: : 1960 Age: 63 Gender: F Pt. Type: ER Account: [id number] Location: [facility] Ordering: TARA LEON Exam Date: 03/30/2023/16:35 Family Phys: EDYTA NICHOLE Charge Code: [id number] Physician: [place] Order #: [id number] Dose#: 4.2 mGy PROCEDURE: CT CHEST WITH [...] 63 Gender: F Pt. Type: ER Account: [id number] Location: [facility] Ordering: TARA LEON Exam Date: 03/30/2023/16:35 Family Phys: EDYTA NICHOLE Charge Code: [id number] Physician: [place] Order #: [id number] Dose#: 4.2 mGy Approved by: Denise Genao MD on 03/30/2023 at 17:08 Normal [place] LACTATEon 03-30-2023 Lactate [Moles/Vol] 2.0 mmol/L Normal 0.4 - 2.0 [place] Comment on above: Performed By: #### 2 06599 #### [place],[address] [place] [address] 52101 Lactate [Moles/Vol] 2.3 mmol/L High 0.4 - 2.0 [place] Comment on above: Result Comment: LACT ATE 3 HR NOTIFIED TO: [id number] 03/30/23.JLN. . . LACTATE 3 HR NOTIFIED BY: _NICA 03/30/23.JLN. . . Performed By: #### 2 58329 #### [place],[address] [place] [address] TROPONIN I, HIGH SENSITIVITY on 03-30-2023 HS TROPONIN 4.0 pg/mL Normal 0.0 - 51.4 [place] Comment on above: Performed By: #### 2 54882 #### [place],[address] [place] [address] HS TROPONIN <4.0 Normal 0.0 - 51.4 [place] Comment on above: Performed By: #### 2 85345 #### [place],[address] [place] [address] Absolute lymphocyte countOrd ered By: Dr. Rojas on 12-30-2022 Lymphocytes Auto (Unsp spec) [#/Vol] 1.40 10*3/uL 0.83-4.51 [facility] Basophil percentageOrdered B y: Dr. Rojas on 12-30-2022 Basophils/100 WBC (Bld) 0.8 % 0-1 [facility] Chloride [Moles/Vol] 106 mmol/L 98-107 [facility] Eosinophils/100 WBC (Bld) 1.9 % 0-5 [facility] Glucose [Mass/Vol] 88 mg/dL 74-106 [facility] Neutrophils (Bld) [#/Vol] 4.1 10*3/uL 2.0-7.7 [facility] Neutrophils/100 WBC (Bld) 64.3 % 47-70 [facility] Potassium [Moles/Vol] 4.3 mmol/L 3.5-5.1 [facility] Sodium [Moles/Vol] 140 mmol/L 136-145 [facility] WBC (Bld) [#/Vol] 6.3 10*3/uL 4.4-11.0 [facility] Blood erythrocytes count (nu mber/volume)Ordered By: Dr. Rojas on 12-30-2022 RBC (Bld) [#/Vol] 4.87 10*6/uL 4.2-5.4 [facility] Blood hemoglobin measurement (mass/volume)Ordered By: Dr. Rojas on 12-30-2022 Hemoglobin (Bld) [Mass/Vol] 14.9 g/dL 12.0-15.0 [facility] Blood lymphocytes/100 leukoc ytesOrdered By: Dr. Rojas on 12-30-2022 Lymphocytes/100 WBC (Bld) 22.2 % 19-41 [facility] Blood monocytes/100 leukocyt esOrdered By: Dr. Rojas on 12-30-2022 Monocytes/100 WBC (Bld) 10.5 % 0-10 [facility] Blood platelet mean volumeOr dered By: Dr. Rojas on 12-30-2022 Platelet mean volume (Bld) [Entitic vol] 9.2 fL 6.2-12.0 [facility] Determination of erythrocyte mean corpuscular volume (MCV)Ordered By: Dr. Rojas on 12-30-2022 MCV (RBC) [Entitic vol] 92.8 fL 81-99 [facility] Hematocrit Auto (Bld) [Volum e fraction]Ordered By: Dr. Rojas on 12-30-2022 Hematocrit (Bld) [Volume fraction] 45.2 % 37-47 [facility] INR in Blood by Coagulation assayOrdered By: Dr. Rojas on 12-30-2022 INR Coag (Bld) [Relative time] 1.0 {INR} [facility] Laboratory - Chemistry and C hemistry - challengeOrdered By: Dr. Rojas on 12-30-2022 CO2 [Moles/Vol] 30.0 mmol/L 21.0-32.0 [facility] Urea nitrogen/Creatinine [Mass ratio] 21.6 mg/mg 05-01 [facility] Laboratory - CoagulationOrde red By: Dr. Rojas on 12-30-2022 aPTT Coag (Bld) [Time] 27.0 s 24.1-36.2 [facility] PT Coag (PPP) [Time] 12.8 s 11.7-14.9 [facility] Laboratory - Hematology and Cell countsOrdered By: Dr. Rojas on 12-30-2022 Erythrocyte distribution width (RBC) [Entitic vol] 45.3 fL 35.1-43.9 [facility] Erythrocyte distribution width (RBC) [Ratio] 13.3 % 11.6-14.6 [facility] Immature granulocytes/100 WBC (Bld) 0.300 % 0.0-0.9 [facility] Comment on above: IG% - Immature Granu locytes (promyelocytes, myelocytes and metamyelocytes) > 1% indicates that a LEFT SHIFT is Present. MCH (RBC) [Entitic mass] 30.6 pg 27.0-32.0 [facility] Nucleated RBC/100 WBC (Bld) [Ratio] 0 % 0-5 [facility] MCHC Auto (RBC) [Mass/Vol]Or dered By: Dr. Rojas on 12-30-2022 MCHC (RBC) [Mass/Vol] 33.0 g/dL 32-36 [facility] No Panel InformationOrdered By: Dr. Rojas on 12-30-2022 Estimated GFR (MDRD) Amer 130 mL/min >60 [facility] Comment on above: GFR Calc Estimated GFR (MDRD) Non-Af Amer 107 mL/min >60 [facility] Comment on above: Non- GFR Calc Platelets bldOrdered By: Dr. Rojas on 12-30-2022 Platelets (Bld) [#/Vol] 278 10*3/uL 150-450 [facility] Serum or plasma calcium rosibel urement (mass/volume)Ordered By: Dr. Rojas on 12-30-2022 Calcium [Mass/Vol] 8.7 mg/dL 8.5-10.1 [facility] Serum or plasma creatinine m easurement (mass/volume)Ordered By: Dr. Rojas on 12-30-2022 Creatinine [Mass/Vol] 0.60 mg/dL 0.55-1.02 [facility] Comment on above: The validity of the calculated GFR & GFRAA in patients over 70 years has not been determined. Clinical correlation is essential. Serum or plasma urea nitroge n measurement (mass/volume)Ordered By: Dr. Rojas on 12-30-2022 Urea nitrogen [Mass/Vol] 13 mg/dL 7-18 [facility] Thin prep Papanicolaou smear with manual screeningOrdered By: Dr. Rojas on 12-30-2022 Thin prep Papanicolaou smear with manual screening 4 5-15 [facility] Base excessOrdered By: Dr. Mikey bowser on 09-30-2022 Base excess Calc (BldV) [Moles/Vol] 4 mmol/L -2-2 [facility] Basophil percentageOrdered B y: Dr. Ruiz on 09-30-2022 Basophil percentage 28.1 mmol/L 22-26 [facility] Basophils/100 WBC (Bld) 95 % 95-99 [facility] CO2 (BldA) [Partial pressure ]Ordered By: Dr. Ruiz on 09-30-2022 CO2 (Bld) [Partial pressure] 41.9 mm[Hg] 35-45 [facility] No Panel InformationOrdered By: Dr. Ruiz on 09-30-2022 Blood Gas Sample Site R Brach [facility] Blood Gas Specimen Type ART [facility] Blood Gas Total CO2 29 mmol/L [facility] Oxygen Delivery Device Room Air [facility] Oxygen (BldA) [Partial press ure]Ordered By: Dr. Ruiz on 09-30-2022 Oxygen (Bld) [Partial pressure] 71 mmHG 75-100 [facility] pH measurementOrdered By: Dr Anand Ruiz on 09-30-2022 pH (Unsp spec) 7.43 [pH] 7.35-7.45 [facility] Final Surgical Pathology Rep [facility] 01-10-2022 Final Surgical Pathology Report . Pathology Reports Accession: Collected Date/Time: Received Date/Time: Pathologist: [id number] 01/09/2022 09:53 EDT 01/09/2022 14:14 EDT CANIDE SOTO MD Final Surgical Pathology Report DIAGNOSIS: [...] Electronically Signed by Pathology Report verified by [facility] Electronically signed by CANDIE SOTO Sign out Date: 01/10/2022 14:55 Performing Lab: [facility], [address] [place] [address] ([place]) HepB SurfaceAb,Quanton 11-29 HepB SurfaceAb,Quant 86.98 mIU/mL High <8.00 [facility] Reference Lab Comment on above: Performed By: #### M EASLG, AHBSQ, MUMPSG, RUBIGG #### [facility] Routine Lab [address] [id number] Measles IgG Antibodyon 11-29 Measles IgG Ab, Qual Abnormal Negative [facility] Lab Comment on above: Result Comment: Posi tive Presence of detectable measles virus IgG antibodies. A positive result generally indicates exposure to measles virus or previous vaccination. Performed By: #### M EASLG, AHBSQ, MUMPSG, RUBIGG #### [facility] Routine Lab [address] [address] Measles IgG Antibody Normal [facility] Lab Comment on above: Result Comment: [...] #### M EASLG, AHBSQ, MUMPSG, RUBIGG #### [facility] Routine Lab [address] [id number] Mumps IgG Abon 11-29-2020 Mumps IgG Ab >300.0 Normal [facility] Reference Lab Comment on above: Performed By: #### M EASLG, AHBSQ, MUMPSG, RUBIGG #### [facility] Routine Lab [address] [place], [place] [address] Mumps IgG, Qual Positive Abnormal Negative [facility] Reference Lab Comment on above: Performed By: #### M EASLG, AHBSQ, MUMPSG, RUBIGG #### [facility] Routine Lab [address] [place], [place] [address] Rubella IgG Antibodyon 11-29 Rubella IgG Ab 28.10 Index Value Normal [facility] Reference Lab Comment on above: Performed By: #### M EASLG, AHBSQ, MUMPSG, RUBIGG #### [facility] Routine Lab [address] [place], [place] [address] Rubella IgG Ab, Qual Positive Abnormal Negative [facility] Reference Lab Comment on above: Performed By: #### M EASLG, AHBSQ, MUMPSG, RUBIGG #### [facility] Routine Lab [address] [place], [place] [address] Office Visit: COPDon 017 Protein mass conc Done Invalid Interpretation Code [facility] Work Phone: Protein mass conc yes Invalid Interpretation Code [facility] Work Phone: Tobacco smoking status [facility] Current every day smoker Invalid Interpretation Code [facility] Work Phone: Tobacco smoking status [facility] Never Invalid Interpretation Code [facility] Work Phone: CNOVon 04-17-2017 CNOV Office Visit ([facility]WSTR) ----VIOLETTA LINDER ([id number]) 1960 [facility] Time Provider Lwjzzvvqcu20/6/17 11:45 AM REHANA WOLFE (PA) [facility]WSTR During [...] sinusitis symptoms can include fever (temperature greater mvmy404.4?F or 38?C), fatigue, cough, difficulty or inability [...] nasal sprays and irrigation kits can be [id number]. Saline mixes can also be purchased or [...] 04/17/2017 11:41 AM >> NATASHA MAZA MA [facility] Apr 17, 2017 11:41 AM Not [...] sprays and irrigation kits can be purchased [id number]. Saline mixes can also be purchased or [...] needed. Disc: Course of therapy completedEncounter Number: [id number] Status:Closed by REHANA WOLFE on 04/17/17 [facility] PROGRESSon 04-17-2017 PROGRESS HNO ID: [id number] thor: Rehana Silverman (Brian) JaybaService: (none)Author Type: [...] symptoms persist or worsen.Rehana Wolfe PA-C Normal [facility] Office Visit: COPDon 017 Fall risk assessment No Invalid Interpretation Code [facility] Work Phone: Microbiology: Strep A (Throa t Rapid TANI)on 07-13-2016 STREP A (RAPID . Invalid Interpretation Code [facility] Phone: Office Visit: UC: Coughon S. pyogenes DNA MUSTAPHA+probe Ql (Throat) Negative Invalid Interpretation Code [facility] Phone: EKG Report: [facility] ECG Obse rvationson 11-27-2015 EKG QRS axis 89 deg Invalid Interpretation Code [facility] Work Phone: Interpretation Sinus Rhythm - Nonsp ecific T-abnormality. Low voltage -possible pulmonary disease. ABNORMAL Invalid Interpretation Code [facility] Phone: P [place] 70 deg Invalid Interpretation Code [facility] Work Phone: VT Interval 138 ms Invalid Interpretation Code [facility] Work Phone: QRS Duration 96 ms Invalid Interpretation Code [facility] Work Phone: QT Interval new path ms Invalid Interpretation Code [facility] Work Phone: T [place] 90 deg Invalid Interpretation Code [facility] Phone: Vital Signs Date Time Vital Sign Value Performing Clinician Facility 03-28-2025 08:48-0400 Body height 162.[address] Beata Schwarz MD Work Phone: [facility] 03-28-2025 08:48-0400 Body mass index (BMI) [Ratio] 25.4 kg/m2 Dr. Beata Schwarz MD Work Phone: [facility] 03-28-2025 08:48-0400 Body temperature 96.3 [degF] Dr. Beata Schwarz MD Work Phone: [facility] 03-28-2025 08:48-0400 Body weight 67.[address] Beata Schwarz MD Work Phone: [facility] 03-28-2025 08:48-0400 Diastolic blood pressure 76 mm[Hg] Dr. Beata Schwarz MD Work Phone: [facility] 03-28-2025 08:48-0400 Heart rate 76 /min Dr. Beata Schwarz MD Work Phone: [facility] 03-28-2025 08:48-0400 Respiratory rate 20 /min Dr. Beata Schwarz MD Work Phone: [facility] 03-28-2025 08:48-0400 SaO2% (BldA) [Mass fraction] 95 % Dr. Beata Schwarz MD Work Phone: [facility] 03-28-2025 08:48-0400 Systolic blood pressure 118 mm[Hg] Dr. Beata Schwarz MD Work Phone: [facility] 02-07-2025 07:23-0400 Body mass index (BMI) [Ratio] 25.7 kg/m2 Dr. Beata Schwarz MD Work Phone: [facility] 02-07-2025 07:23-0400 Body temperature 97.4 [degF] Dr. Beata Schwarz MD Work Phone: [facility] 02-07-2025 07:23-0400 Body weight 68.[address] Beata Schwarz MD Work Phone: [facility] 02-07-2025 07:23-0400 Diastolic blood pressure 78 mm[Hg] Dr. Beata Schwarz MD Work Phone: [facility] 02-07-2025 07:23-0400 Heart rate 76 /min Dr. Beata Schwarz MD Work Phone: [facility] 02-07-2025 07:23-0400 Respiratory rate 20 /min Dr. Beata Schwarz MD Work Phone: [facility] 02-07-2025 07:23-0400 SaO2% (BldA) [Mass fraction] 94 % Dr. Beata Schwarz MD Work Phone: [facility] 02-07-2025 07:23-0400 Systolic blood pressure 119 mm[Hg] Dr. Beata Schwarz MD Work Phone: [facility] 12-27-2024 10:06-0400 Body height 162.[address] Beata Schwarz MD Work Phone: [facility] 12-27-2024 07:28-0400 Body mass index (BMI) [Ratio] 25.7 kg/m2 Dr. Beata Schwarz MD Work Phone: [phone] [place] [address] 12-27-2024 07:28-0400 Body temperature 96 [degF] Dr. Beata Schwarz MD Work Phone: [facility] 12-27-2024 07:28-0400 Body weight 68.[address] Beata Schwarz MD Work Phone: [facility] 12-27-2024 07:28-0400 Diastolic blood pressure 68 mm[Hg] Dr. Beata Schwarz MD Work Phone: [facility] 12-27-2024 07:28-0400 Heart rate 82 /min Dr. Beata Schwarz MD Work Phone: [facility] 12-27-2024 07:28-0400 Respiratory rate 20 /min Dr. Beata Schwarz MD Work Phone: [facility] 12-27-2024 07:28-0400 SaO2% (BldA) [Mass fraction] 95 % Dr. Beata Schwarz MD Work Phone: [facility] 12-27-2024 07:28-0400 Systolic blood pressure 103 mm[Hg] Dr. Beata Schwarz MD Work Phone: [facility] 11-14-2024 15:44-0400 Body height 162.[address] Beata Schwarz MD Work Phone: [facility] 08-20-2023 11:26-0500 Body temperature 98.1 [degF] Agatha Alejo MD Work Phone: [facility] 08-20-2023 11:26-0500 Diastolic blood pressure 58 mm[Hg] Agatha Alejo MD Work Phone: [facility] 08-20-2023 11:26-0500 Heart rate 85 /min Agatha Alejo MD Work Phone: [facility] 08-20-2023 11:26-0500 Respiratory rate 13 /min Agatha Alejo MD Work Phone: [facility] 08-20-2023 11:26-0500 SaO2% (BldA) [Mass fraction] 96 % Agatha Alejo MD Work Phone: [facility] 08-20-2023 11:26-0500 Systolic blood pressure 104 mm[Hg] Agatha Alejo MD Work Phone: [facility] 08-19-2023 09:50-0500 Body height 160 cm Agatha Alejo MD Work Phone: [facility] 08-19-2023 09:50-0500 Body mass index (BMI) [Ratio] 27.15 kg/m2 Agatha Alejo MD Work Phone: [facility] 08-19-2023 09:50-0500 Body weight 69.5 kg Agatha Alejo MD Work Phone: [facility] 01-02-2023 07:01-0400 Body height 162.[address] Edyta Nichole Work Phone: [facility] 01-02-2023 07:01-0400 Body weight 69.[address] Edyta Nichole Work Phone: [facility] 01-01-2023 08:13-0400 Body mass index (BMI) [Ratio] 26.4 kg/m2 Dr. Edyta Nichole Work Phone: [facility] 12-01-2022 15:16-0400 Body weight 69.[address] Edyta Nichole Work Phone: [facility] 12-01-2022 15:16-0400 Diastolic blood pressure 78 mm[Hg] Dr. Edyta Nichole Work Phone: [facility] 12-01-2022 15:16-0400 Heart rate 81 /min Dr. Edyta Nichole Work Phone: [facility] 12-01-2022 15:16-0400 Respiratory rate 26 /min Dr. Edyta Nichole Work Phone: [facility] 12-01-2022 15:16-0400 Systolic blood pressure 129 mm[Hg] Dr. Edyta Nichole Work Phone: [facility] 12-01-2022 08:34-0400 Body height 162.[address] Edyta Nichole Work Phone: [facility] 10-02-2022 07:42-0400 Body height 162.[address] Edyta Nichole Work Phone: [facility] 10-02-2022 07:42-0400 Body mass index (BMI) [Ratio] 26.4 kg/m2 Dr. Edyta Nichole Work Phone: [facility] 10-02-2022 07:42-0400 Body temperature 97.6 [degF] Dr. Edyta Nichole Work Phone: [facility] 10-02-2022 07:42-0400 Body weight 69.[address] Edyta Nichole Work Phone: [facility] 10-02-2022 07:42-0400 Diastolic blood pressure 68 mm[Hg] Dr. Edyta Nichole Work Phone: [facility] 10-02-2022 07:42-0400 Heart rate 70 /min Dr. Edyta Nichole Work Phone: [facility] 10-02-2022 07:42-0400 Respiratory rate 18 /min Dr. Edyta Nichole Work Phone: [facility] 10-02-2022 07:42-0400 SaO2% (BldA) [Mass fraction] 93 % Dr. Edyta Nichole Work Phone: [facility] 10-02-2022 07:42-0400 Systolic blood pressure 115 mm[Hg] Dr. Edyta Nichole Work Phone: [facility] 08-26-2022 11:11-0500 Body height 162.[address] Edyta Nichole Work Phone: [facility] 08-26-2022 11:04-0500 Body mass index (BMI) [Ratio] 25.7 kg/m2 Dr. Edyta Nichole Work Phone: [facility] 08-26-2022 11:04-0500 Body temperature 97.6 [degF] Dr. Edyta Nichole Work Phone: [facility] 08-26-2022 11:04-0500 Body weight 68.[address] Edyta Nichole Work Phone: [facility] 08-26-2022 11:04-0500 Diastolic blood pressure 76 mm[Hg] Dr. Edyta Nichole Work Phone: [facility] 08-26-2022 11:04-0500 Heart rate 77 /min Dr. Edyta Nichole Work Phone: [facility] 08-26-2022 11:04-0500 Respiratory rate 18 /min Dr. Edyta Nichole Work Phone: [facility] 08-26-2022 11:04-0500 SaO2% (BldA) [Mass fraction] 96 % Dr. Edyta Nichole Work Phone: [facility] 08-26-2022 11:04-0500 Systolic blood pressure 113 mm[Hg] Dr. Edyta Nichole Work Phone: [facility] 07-23-2022 12:47-0500 Body height 162.[address] Edyta Nichole Work Phone: [facility] 07-23-2022 12:47-0500 Body weight 70.[address] Edyta Nichole Work Phone: [facility] 07-23-2022 12:47-0500 Heart rate 75 /min Dr. Edyta Nichole Work Phone: [facility] 07-23-2022 12:47-0500 SaO2% (BldA) [Mass fraction] 96 % Dr. Edyta Nichole Work Phone: [facility] 07-22-2022 08:01-0500 Body mass index (BMI) [Ratio] 27 kg/m2 Dr. Edyta Nichole Work Phone: [facility] 07-22-2022 08:01-0500 Body temperature 97.7 [degF] Dr. Edyta Nichole Work Phone: [facility] 07-22-2022 08:01-0500 Body weight 70.[address] Edyta Nichole Work Phone: [facility] 07-22-2022 08:01-0500 Diastolic blood pressure 77 mm[Hg] Dr. Edyta Nichole Work Phone: [facility] 07-22-2022 08:01-0500 Heart rate 78 /min Dr. Edyta Nichole Work Phone: [facility] 07-22-2022 08:01-0500 Respiratory rate 20 /min Dr. Edyta Nichole Work Phone: [facility] 07-22-2022 08:01-0500 SaO2% (BldA) [Mass fraction] 95 % Dr. Edyta Nichloe Work Phone: [facility] 07-22-2022 08:01-0500 Systolic blood pressure 118 mm[Hg] Dr. Edyta Nichole Work Phone: [facility] 03-05-2022 10:38-0400 Body height 161.[address] Edyta Nichole Work Phone: [facility] Work Phone: 03-05-2022 10:30-0400 Body mass index (BMI) [Ratio] 26.2 kg/m2 Dr. Edyta Nichole Work Phone: [facility] Work Phone: 03-05-2022 10:30-0400 Body temperature 96.9 [degF] Dr. Edyta Nichole Work Phone: [facility] Work Phone: 03-05-2022 10:30-0400 Body weight 68.[address] Edyta Nichole Work Phone: [facility] Work Phone: 03-05-2022 10:30-0400 Diastolic blood pressure 72 mm[Hg] Dr. Edyta Nichole Work Phone: [facility] Work Phone: 03-05-2022 10:30-0400 Heart rate 90 /min Dr. Edyta Nichole Work Phone: [facility] Work Phone: 03-05-2022 10:30-0400 Respiratory rate 16 /min Dr. Edyta Nichole Work Phone: [facility] Work Phone: 03-05-2022 10:30-0400 SaO2% (BldA) [Mass fraction] 93 % Dr. Edyta Nichole Work Phone: [facility] Work Phone: 03-05-2022 10:30-0400 Systolic blood pressure 109 mm[Hg] Dr. Edyta Nichole Work Phone: [facility] Work Phone: 04-22-2017 05:44-0400 BMI (Body Mass Index) 29.46 kg/m2 Carol Casillas CNP [facility] Work Phone: 04-22-2017 05:44-0400 Body Temperature 97.6 [degF] Carol Casillas CNP [facility] Work Phone: 04-22-2017 05:44-0400 BP Diastolic 86 mm[Hg] Carol Casillas MANAGER CONCR[employer]E [facility] Work Phone: 04-22-2017 05:44-0400 BP Systolic 129 mm[Hg] Carol Casillas CNP [facility] Work Phone: 04-22-2017 05:44-0400 Height 161.29 cm Carol Casillas CNP [facility] Work Phone: 04-22-2017 05:44-0400 Pulse (Heart Rate) 76 /min Carol Casillas CNP [facility] Work Phone: 04-22-2017 05:44-0400 Respiratory Rate 18 /min Carol Casillas MANAGER [employer]CR[employer]E [facility] Work Phone: 04-22-2017 05:44-0400 Weight 76.66 kg Carol Casillas CNP [facility] Work Phone: 07-10-2016 11:57-0500 BSA (Body Surface Area) 1.79 m2 Carol Casillas CNP [facility] Work Phone: 02-28-2016 07:54-0400 Body Temperature 96.44 [degF] Carol Casillas MANAGER [employer]CR[employer] [facility] Work Phone: 02-28-2016 07:54-0400 Height 161.29 cm Carol Casillas CNP [facility] Work Phone: 02-28-2016 07:54-0400 Weight 75.45 kg Carol Casillas CNP [facility] Work Phone: 11-27-2015 15:20-0400 Heart rate 62 /min Carol Casillas CNP [facility] Work Phone: Encounters Encounter Date Encounter Type Care Provider Facility Start: 03-28-2025 End: 03-28-2025 Patient encounter procedure [facility] Phone: Start: 03-28-2025 End: 03-28-[address] Beata Schwarz MD Work Phone: [facility] Start: 03-21-2025 End: 03-21-2025 Patient encounter procedure SEWING MACHINE REPAIRER HELPER Sandra Soriano -[facility] Work Phone: Start: 03-21-2025 End: 03-21-2025 ambulatory Beata Schwarz Facility:[facility] Start: 02-07-2025 End: 02-07-2025 Patient [facility] Work Phone: Start: 02-07-2025 End: 02-07-[address] Beata Schwarz MD Work Phone: [facility] Start: 12-27-2024 End: 12-27-[address] Beata Schwarz MD Work Phone: [facility] Work Phone: Start: 12-27-2024 End: 12-27-2024 Patient encounter procedure SEWING MACHINE REPAIRER HELPER [facility]nd[facility] Work Phone: Start: 12-27-2024 End: 12-27-2024 Patient encounter procedure SEWING MACHINE REPAIRER HELPER [facility] Work Phone: Start: 12-27-2024 End: 12-27-[address] Beata Schwarz MD Work Phone: [facility] Work Phone: Start: 12-27-2024 End: 12-27-2024 ambulatory Beata Schwarz Facility:[facility] Start: 11-14-2024 End: 11-14-[address] [place] Rojas MD [facility] Start: 11-14-2024 End: 11-14-2024 ambulatory Washington Rojas Facility:[facility] Start: 10-21-2024 End: 10-21-[address] Beata Schwarz MD Work Phone: [facility] Work Phone: Start: 10-21-2024 End: 10-21-2024 Patient encounter procedure Micki Laird SEWING MACHINE REPAIRER HELPER-C -Laboratory, Neil Desai [facility] Start: 10-21-2024 End: 10-21-2024 ambulatory Micki Laird Facility:[facility] Start: 06-24-2024 End: 06-24-2024 ambulatory Edyta Floteddy Facility:[facility] Start: 06-16-2024 End: 06-16-2024 ambulatory Carol Caslilas NP Facility:[facility] Start: 06-01-2024 Encounter for genera l adult medical examination without abnormal findings [facility] Start: 06-01-2024 End: 06-01-2024 ambulatory [facility] Facility:[facility] Start: 05-10-2024 End: 05-10-2024 ambulatory [facility] Facility:[facility] Start: 10-14-2023 End: 10-14-2023 Emergency department patient visit TARA LEON [place] Start: 08-19-2023 End: 08-20-2023 Unknown [facility] Start: 08-19-2023 End: 08-20-2023 Subsequent hospital visit by physician Agatha Alejo MD Work Phone: [facility] Surgical Progressive Care Unit PCU H6 Comment on above: Spinal stenosis (Leda shanti Dx) Start: 08-12-2023 End: 08-12-2023 ambulatory [facility] Start: 08-12-2023 End: 08-12-2023 Encounter for other preprocedural examination [facility] Start: 07-06-2023 End: 07-06-2023 Emergency department patient visit ANDREWS LOMAS [place] Start: 05-15-2023 End: 05-15-2023 ambulatory BEATA SCHWARZ [facility] Start: 03-30-2023 End: 03-31-2023 ambulatory EDYTAMikey FOSTER [facility] Start: 01-02-2023 End: 01-02-2023 Admission to same day surgery center Dr. Edyta Nichole Work Phone: [facility] Control Tender/Special Procedures Start: 01-02-2023 End: 01-02-[address] Edyta Nichole Work Phone: [facility] Work Phone: Start: 12-26-2022 Non-patient / Non-visit Dr. Bruna Nichole Work Phone: [facility] Start: 12-22-2022 Non-patient / Non-visit Dr. Bruna Nichole Work Phone: [facility] Start: 12-19-2022 Non-patient / Non-visit Dr. Bruna Nichole Work Phone: [facility] Start: 12-19-2022 End: 12-19-[address] Edyta Nichole Work Phone: [facility] Start: 12-16-2022 Non-patient / Non-visit Dr. Bruna Nichole Work Phone: [facility] Start: 12-16-2022 End: 12-16-[address] Edyta Nichole Work Phone: [facility] Work Phone: Start: 12-16-2022 End: 12-16-[address] [facility] Start: 12-01-2022 End: 12-01-[address] Edyta Nichloe Work Phone: [facility] Start: 11-05-2022 End: 11-05-[address] Edyta Nichole Work Phone: [facility] Work Phone: Start: 11-05-2022 End: 11-05-[address] Edyta Nichole Work Phone: [facility] Start: 10-02-2022 End: 10-02-[address] Edyta Nichole Work Phone: [facility] Start: 09-30-2022 End: 09-30-[address] Edyta Nichole Work Phone: [facility] Work Phone: Start: 09-30-2022 End: 09-30-[address] Edyta Nichole Work Phone: [facility] Start: 08-26-2022 End: 08-26-[address] Edyta Nichole Work Phone: [facility] Start: 08-21-2022 Non-patient / Non-visit Dr. Bruna Nichole Work Phone: [facility] Start: 08-19-2022 End: 08-19-[address] Edyta Nichole Work Phone: [facility] Work Phone: Start: 08-19-2022 End: 08-19-[address] Ed[facility] Start: 07-24-2022 Non-patient / Non-visit Dr. Bruna Nichole Work Phone: [facility] Start: 07-23-2022 End: 07-23-[address] Edyta Nichole Work Phone: [facility] Work Phone: Start: 07-23-2022 End: 07-23-[address] Edyta Nichole Work Phone: [facility] Start: 07-22-2022 End: 07-22-[address] Ed[facility]ole [facility] Start: 05-14-2022 End: 05-14-[address] Edyta Nichole Work Phone: [facility] Work Phone: Start: 05-14-2022 End: 05-14-[address] Edyta Nichole Work Phone: [facility] Start: 03-05-2022 End: 03-05-[address] Edyta Nichole [facility] Start: 04-17-2017 End: 04-21-[address] [facility] Procedures Date Procedure Procedure Detail Performing [...] Start: 09-26-2016 End: 10-22-2016 BWA Carol Nicholas SEWING MACHINE REPAIRER HELPER Work Phone: Start: 09-26-2016 End: 10-22-2016 Follow Up Appt 1 month Carol Flores r MANAGER CONCRETE Work Phone: Start: 09-26-2016 End: 10-22-2016 Pulmonary Function Test - complete Carol Casillas MANAGER CONCRETE Work Phone: Start: 09-26-2016 End: 10-22-2016 Pulmonary stress test/simple Carol Casillas MANAGER CONCRETE Work Phone: Start: 07-10-2016 End: 07-14-2016 [facility] streptococcus [facility] a Eddie Blank PA Work Phone: Start: 02-28-2016 End: 10-22-2016 BWMikey Casillas C SEWING MACHINE REPAIRER HELPER Work Phone: Start: 02-28-2016 End: 10-22-2016 Follow Up Appt 3 months Carol Avelar er MANAGER CONCRETE Work Phone: Start: 02-28-2016 End: 10-22-2016 Pulmonary Function Test - complete Carol Casillas MANAGER CONCRETE Work Phone: Start: 02-28-2016 End: 10-22-2016 Pulmonary [...] DTaP/Tdap/Td Vaccines (2 - Td or Tdap) [facility] Start: 12-27-2024 X-ray of chest, PA and lateral views Chest PA and Lateral [facility] Start: 12-27-2024 XR Chest PA and Lateral [facility] Start: 03-13-2023 COVID-19 Vaccine ( season) COVID-19 Vaccine ( season) [facility] Start: 03-13-2023 Influenza vaccination Influenza Vaccine (#1) [facility] Start: 10-02-2022 Patient referral [facility] Work Phone: Start: 2021 RSV Immunization aged 60 or older (1 - 1-dose 60+ series) RSV Immunization aged 60 or older (1 - 1-dose 60+ series) [facility] Start: 01-23-2020 Screening for malignant neoplasm of breast Mammogram [facility] Start: 04-22-2017 End: 04-22-2017 ROSA M Mikey [facility] [place] Work Phone: Start: 04-22-2017 End: 04-22-2017 Follow Up Appt 6 months Follow Up Appt 6 months [facility] Work Phone: Start: 11-03-2016 End: 11-03-2016 [facility] [place] Work Phone: Start: 11-03-2016 End: 11-03-2016 Follow Up Appt 6 months Follow Up Appt 6 months [facility] [place] Work Phone: Start: 09-26-2016 End: 10-22-2016 [facility] [place] Work Phone: [...] simple (eg, 6-minute walk) [facility] Work Phone: Start: 07-10-2016 End: 07-10-2016 S. agalactiae DNA MUSTAPHA+probe Ql (Unsp spec) *GBSD - Group B Strep, DNA by PCR [facility] Work Phone: Start: 02-28-2016 End: 10-22-2016 [facility] [place] Work Phone: Start: 02-28-2016 End: 10-22-2016 Follow Up Appt 3 months Follow Up Appt 3 months [facility] Work Phone: Start: 02-28-2016 End: 10-22-2016 Pulmonary Function Test - complete Pulmonary Function Test - complete [facility] [place] Work Phone: Start: 02-28-2016 End: 10-22-2016 Pulmonary stress test/simple Pulmonary stress testing; simple (eg, 6-minute walk) [facility] Phone: Start: 02-11-2016 End: 11-27-2015 Pulmonary Function Test - complete Pulmonary Function Test - complete [facility] Phone: Start: 11-27-2015 End: 02-28-2016 [facility] [place] Phone: Start: 11-27-2015 End: 11-27-2015 Ecg routine ecg w/least 12 lds w/i&r EKG (In office) [facility] Phone: Start: 11-27-2015 End: 02-28-2016 Follow Up Appt 3 months Follow Up Appt 3 months [facility] Phone: Start: 11-27-2015 End: 11-27-2015 Nuclear stress test -Lexiscan Nuclear stress test -Lexiscan [facility] Phone: Start: 10-31-2015 End: 10-31-2015 Other Referral Other Referral Jos Cantu DC, [facility], [address], [address], [place], [address] [facility] Phone: Start: 05-23-2015 End: 02-28-2016 Follow Up Appt 6 months Follow Up Appt 6 months [facility] Phone: Start: 01-16-2015 End: 02-28-2016 Complete sleep workup (PSG,CPAP as indicated) & Follow up Complete sleep workup (PSG,CPAP as indicated) & Follow up [facility] Phone: Start: 01-16-2015 End: 02-28-2016 Follow Up Appt 3 months Follow Up Appt 3 months [facility] Phone: Start: 01-16-2015 End: 02-28-2016 Pulmonary Function Test - complete Pulmonary Function Test - complete [facility] Phone: Start: 01-16-2015 End: 02-28-2016 Pulmonary stress test/simple Pulmonary stress testing; simple (eg, 6-minute walk) [facility] Work Phone: Start: 2011 Zoster Vaccines (1 of 2) Zoster Vaccines (1 of 2) [facility] Start: 1991 Screening for malignant neoplasm of cervix [facility] Start: 1982 Screening for malignant neoplasm of cervix Pap Smear [facility] Start: 1979 Diabetes mellitus screening Diabetes Screening [facility] Start: 1979 Hepatitis C screening Hepatitis C Screening [facility] Start: 1973 Depression Screening Depression Screening [facility] Start: 1967 Pneumococcal Vaccine: Pediatrics (0 to 5 Years) and At-Risk Patients (6 to 64 Years) (1 of 2 - PCV) Pneumococcal Vaccine: Pediatrics (0 to 5 Years) and At-Risk Patients (6 to 64 Years) (1 of 2 - PCV) [facility] Start: 1962 MMR Vaccines (1 of 1 - Standard series) MMR Vaccines (1 of 1 - Standard series) [facility] Start: 1961 HIV screening HIV Screening [facility] Start: 1961 Lipid panel Lipid Panel [facility] Start: 1961 Screening for malignant neoplasm of colon [facility] Bacteria identified in Sputum by Culture [facility] CBC W Auto Different ial panel - Blood [facility] CT Chest [facility] Measurement of respiratory function [facility] Patient referral [facility] Work Phone: Procedure [facility] Immunizations Immunization Date Immunization Notes Care Provider Fa cility 03-28-2025 influenza, injectabl e, madin christina canine kidney, preservative free Dr. Beata Schwarz MD Work Phone: [facility] 05-09-2021 influenza virus vaccine, unspecified formulation Agatha Alejo MD Work Phone: [facility] 05-12-2016 influenza, injectabl e, quadrivalent, preservative free Dr. Beata Schwarz MD Work Phone: [facility] 05-12-2016 influenza, seasonal, injectable Dr. Edyta Nichole Work Phone: [facility] 06-25-2015 influenza, injectabl e, quadrivalent, preservative free Dr. Beata Schwarz MD Work Phone: [facility] 06-25-2015 influenza, seasonal, injectable Dr. Edyta Nichole Work Phone: [facility] 04-12-2014 influenza, injectabl e, quadrivalent, preservative free Dr. Beata Schwarz MD Work Phone: [facility] 04-12-2014 influenza, seasonal, injectable Dr. Edyta Nichole Work Phone: [facility] Payers Date Payer Category Payer Self-pay [id number] 2024 Unknown [id number] 2022 Unknown [id number] 2022 Unknown [employer] [id number] 2022-Present [address] [place] [address] Commercial [id number] 2016 Unknown [id number] 1960 Unknown [id number] [id number]. 66 1960 Unknown [id number] 2.16.840.1.138307.3.579.2. 66 1960 Unknown [id number] 2.16.840.1.860169.3.579.2. 66 1960 Unknown [id number] 2.16.840.1.843838.3.579.2. 651 Private Health Insurance [id number] Unknown COMMERCIAL OTHER [id number] Unknown [facility] [id number] Unknown [id number] 2.16.840.1.851069.3.579.2. 462 Unknown [id number] 2.16.840.1.563855.3.579.2. 462 Unknown [id number] 2.16.840.1.675218.3.579.2. 462 Unknown [id number] 2.16.840.1.419428.3.579.2. 462 Unknown [id number] 2.16.840.1.227477.3.579.2. 462 Unknown [id number] 2.16.840.1.605400.3.579.2. 462 Unknown [id number] 2.16.840.1.529797.3.579.2. 462 Unknown [id number] 2.16.840.1.487647.3.579.2. 462 Unknown [id number] 2.16.840.1.758570.3.579.2. 462 Unknown [id number] 2.16.840.1.516208.3.579.2. 462 Unknown [id number] 2.16.840.1.449305.3.579.2. 462 Unknown [id number] 2.16.840.1.772957.3.579.2. 462 Social History Date Type Detail Facility Start: 03-05-2022 End: 01-02-2023 Tobacco smoking status NHIS Unknown if ever smoked [facility] Start: 09-28-2016 Cigarettes;- [facility] Start: 1960 Sex Assigned At Female [facility] Start: 08-12-2023 End: 12-27-2024 Tobacco smoking status NHIS Smokes tobacco daily [facility] History of tobacco use Cigarette Smoker [facility] Start: 08-12-2023 End: 08-19-2023 Cigarettes smoked current (pack per day) - Reported 0.5 [facility] Start: 08-12-2023 Tobacco use and exposure Smokeless tobacco non-user [facility] Start: 08-19-2023 Alcohol intake Ex-drinker (finding) [facility] Start: 08-19-2023 [facility] Start: 08-12-2023 Tobacco Comment Trying to quit , down to 1-2 cigarettes per day now [facility] Start: 1960 Sex Assigned At Not on file [facility] Start: 10-26-2024 Sex Female (finding) [facility] NEGATED: Highlighted rowStart: NINF History of tobacco use Passive smoker [facility] Medical Equipment Procedure Code Equipment Code Equipment Origin al Text Equipment Identifier Dates Peripheral arter y stent, bare-metal ()[id number] FDA Start: 01-02-2023 Clinical Notes 07-24-2022 to 12-27-2024 Note Date & Type Note Facility 12-27-2024 Evaluation note Diagnosis Onset Date Resolution Asthma-COPD overlap syndrome chronic December 27, 2024 9:14am Smoking greater than 30 pack years chronic December 27, 2024 9:14am [facility] Work Phone: 1(777) 318-306706-17-2025 Evaluation note* Diagnosis Onset Date Resolution Status Admit Date Asthma-COPD overlap syndrome chronic December 27, 2024 9:14am Smoking greater than 30 pack years chronic December 27, 2024 9:14am Asthma-COPD overlap syndrome chronic February 07, 2025 8:59am Smoking greater than 30 pack years chronic February 07, 2025 8:59am [facility] Work Phone: 1(658) 665-311706-17-2025 Evaluation note* Diagnosis Onset Date Resolution Status [...] March 28, 2025 12:37pm [facility] Work Phone: 1(335) 240-755602-08-2024 Miscellaneous Notes* Care Coordination - Unknown Case Management - 08/20/2023 4:57 PM EST Patient Choice Patient Name: VIOLETTA LINDER Date of : 1960 All Providers Sent Referral Name: Home Health Services [facility] Address: [address], [address] [place] [address] Name: [facility] Address: [address] [place] [address] Name: [facility] Address: [address] [place] [address] Name: [facility] Address: [address] [place] [address] Name: [facility] Address: [address] [place] [address] Name: [facility] Phone: [phone] Address: [address] [place], [place] [id number] * Home Care - Dina Shelton RN - 08/20/2023 3:36 PM EST [facility] called, as no response had been received via [facility] at this time. Referral sent to several additional agencies as discharge order noted in Epic. Pt agreeable to first available agency. 4pm update: [facility] is able to accept. Pt updated. Will send updated documentsfor SOC tomorrow . Attempted to reach PCP and Dr. Alejo to determine who will follow for home care. Edyta Nichole, pt's pcp will follow for home care. Also her name was updated in [facility], the PCP previously documented was incorrect. * Care Coordination - Ximena Albarado RN - 08/20/2023 2:40 PM EST Care Managment Initial Assessment Date: 08/20/2023 Patient Name: Violetta Linder : 1960 Patient Information Source of Information: Patient Cognition/Language: WFL - Within Functional Limits Permission given to speak with patient sales representative graphic art/caregiver as indicated: Confirmation of Payer with patient/family: Yes Payer Name: [employer] [place]: No Confirmation of Primary Care Physician: Confirmed [...] Living Prescription Coverage: Yes Pharmacy Used: [facility] [place] Medication Management: Independent Transportation/Shopping: Independent Transportation [...] home care at discharge and is requesting [facility]. FRITZ Jules made aware. Pt denies any other needs from tcc. Anticipate possible dc home tomorrow if medically stable. at2:44 PM Ximena Albarado RN * Home Care - Dina Shelton RN - 08/20/2023 10:46 AM EST Spoke with pt at bedside and pt is agreeable to PT (declined/denied OT needs) at home following discharge. Pt requested [facility] and referral was sent. She stated if they are unable to accept, she'll be happy with first accepting agency. [facility] is unable to staff that area with PTat this time. Pt denied DME needs. * Home Care - Dina Shelton RN - 08/20/2023 9:29 AM EST Table Runner following case for Discharge Needs. * Care [...] to reposition in bed documented in this [facility]02-08-2024 Note* Care Coordination - Unknown Case Management - 08/20/2023 4:57 PM EST Patient Choice Patient Name: VIOLETTA LINDER Date of : 1960 All Providers Sent Referral Name: Home Health Services [facility] Address: [address], [address] [place] [address] Name: [facility] Address: [address] [place] [address] Name: [facility] Address: [address] [place] [address] Name: [facility] Address: [address] [place] [address] Name: [facility] Address: [address] [place] [address] Name: [facility] Phone: [phone] Address: [address] [place] [address] [facility] [id number] Note* Care Coordination - Unknown Case Management - 08/20/2023 4:57 PM EST Patient Choice Patient Name: VIOLETTA LINDER Date of : 1960 All Providers Sent Referral Name: Home Health Services [facility] Address: [address] [place] [address] Name: [facility] Address: [address] [place] [address] Name: [facility] Address: [address] [place] [address] [place] [address] Name: [facility] Address: [address] [place] [address] Name: [facility] Address: [address] [place] [address] Name: [facility] Phone: [phone] Address: [address] [place] [address] [facility] [id number] Note* Home Care - Dina Shelton RN - 08/20/2023 3:36 PM EST [facility] called, as [facility] at this time. Referral sent to several additional agencies as discharge order noted in [facility]. Pt agreeable to first available agency. 4pm update: [facility] is able to accept. Pt updated. Will send updated documentsfor SOC tomorrow . Attempted to reach PCP and Dr. Alejo to determine who will follow for home care. Edyta Nichole, pt's pcp will follow for home care. Also her name was updated in [facility], the PCP previously documented was incorrect. [facility] [id number] Note* Home Care - Dina Shelton RN - 08/20/2023 3:36 PM EST [facility] called, as no response had been received via [employer] at this time. Referral sent to several additional agencies as discharge order noted in Epic. Pt agreeable to first available agency. 4pm update: [facility] is able to accept. Pt updated. Will send updated documentsfor SOC tomorrow . Attempted to reach PCP and Dr. Alejo to determine who will follow for home care. Edyta Nichole, pt's pcp will follow for home care. Also her name was updated in [facility], the PCP previously documented was incorrect. [facility] [id number] NoteHospitalist Progress Note 08/20/2023 Subjective: Admit Date: [...] Shon Cabral Mobile Relation: Nephew Preferred language: Egyptian Peripheral Equipment Operator needed? No Heber Chan MD Division of Hospitalist Medicine [facility]02-08-2024 Note* Care Coordination - Ximena Albarado RN - 08/20/2023 2:40 PM EST Care Managment Initial Assessment Date: 08/20/2023 Patient Name: Violetta Linder : 1960 Patient Information Source of Information: Patient Cognition/Language: WFL - Within Functional Limits Permission given to speak with patient sales representative graphic art/caregiver as indicated: Confirmation of Payer with patient/family: [...] Living Prescription Coverage: Yes Pharmacy Used: [facility] [place] Medication Management: Independent Transportation/Shopping: Independent Transportation Mode: [...] home care at discharge and is requesting [facility]. [facility] Dhara made aware. Pt denies any other needs from tcc. Anticipate possible dc home tomorrow if medically stable. at2:44 PM Ximena Albarado RN [facility] [id number] Note* Care Coordination - Ximena Albarado RN - 08/20/2023 2:40 PM EST Care Managment Initial Assessment Date: 08/20/2023 Patient Name: Violetta Linder : 1960 Patient Information Source of Information: Patient Cognition/Language: WFL - Within Functional Limits Permission given to speak with patient sales representative graphic art/caregiver as indicated: Confirmation of Payer with patient/family: [...] Living Prescription Coverage: Yes Pharmacy Used: [facility] [place] Medication Management: Independent Transportation/Shopping: Independent Transportation [...] home care at discharge and is requesting [facility]. [facility] Dhara made aware. Pt denies any other needs from tcc. Anticipate possible dc home tomorrow if medically stable. at2:44 PM Ximena Albarado RN [facility] [employer] [id number] NoteOCCUPATIONAL THERAPY [facility] Initial Evaluation Name/MRN: Violetta Linder ([id number]) Evaluation Date: 08/20/2023 Date of : 1960 Admission Date: 08/19/2023 9:37 AM Age: 63 y.o. [facility] Discharge Recommendation: Home with assist [...] Arthritis Asthma COPD (chronic obstructive pulmonary disease) ([facility]) Past Surgical History: Past Surgical [...] of Care supervision is transferred to a [facility] Services Occupational Therapist. Goals and/or treatment [...] Shon Cabral Mobile Relation: Nephew Preferred language: Egyptian Peripheral Equipment Operator needed? No Heber Chan MD Division of Hospitalist Medicine [facility] * Merline Gutierrezelie - 08/20/2023 11:26 AM EST Images from the original note were not included. OCCUPATIONAL THERAPY [facility] Initial Evaluation Name/MRN: Violetta Linder ([id number]) Evaluation Date: 08/20/2023 Date of : 1960 Admission Date: 08/19/2023 9:37 AM Age: 63 y.o. Room/Bed: 10/4523 A Discharge Recommendation: Home with assist PRN [...] Arthritis Asthma COPD (chronic obstructive pulmonary disease) ([facility]) Past Surgical History: Past Surgical [...] of Care supervision is transferred to a [facility] Therapy Services Occupational Therapist. Goals and/or treatment plan was established in collaboration with patient/family/other representatives. * Karin Cullom - 08/20/2023 10:13 AM EST Images from the original note were not included. PHYSICAL THERAPY [facility] Initial Evaluation Name/MRN: Violetta Linder ([id number]) Evaluation Date: 08/20/2023 Date of : 1960 Admission Date: 08/19/2023 9:37 AM Age: 63 y.o. Room/Bed: H-6126/H-6126 A Discharge Recommendation: Home with nursing professor, Home with Home health PT Equipment Needed: [...] Arthritis Asthma COPD (chronic obstructive pulmonary disease) ([facility]) Past Surgical History: Past Surgical [...] Independent Receives Help From: Family (nephew) Active Rehab Spec: Yes Prior Level of Function ADL Assistance: [...] going up, non-reciprocal going down Outcome Measures AM-[facility] How much HELP from another [...] Climbing 3-5 steps with a railing?+: None AM-[facility] Inpatient Mobility Raw Score : 24 AM-[facility] Inpatient Mobility Raw Score (No Stairs) : 20 [facility] -[facility] Score: Walked 25 ft or more [...] of Care supervision is transferred to a [facility] Therapy Services Physical Therapist. Goals and/or treatment plan was established in collaboration with patient/family/other representatives. documented in this [facility]02-08-2024 NotePHYSICAL THERAPY [facility] Initial Evaluation Name/MRN: Violetta Linder ([id number]) Evaluation Date: 08/20/2023 Date of : 1960 Admission Date: 08/19/2023 9:37 AM Age: 63 y.o. [facility] Discharge Recommendation: Home with nursing professor, Home with Home health PT Equipment Needed: [...] Arthritis Asthma COPD (chronic obstructive pulmonary disease) ([facility]) Past Surgical History: Past Surgical [...] Independent Receives Help From: Family (nephew) Active Rehab Spec: Yes Prior Level of Function ADL Assistance: [...] needs) at home following discharge. [place] [facility] [place]. She stated if they are unable to accept, she'll be happy with first accepting agency. [facility] is unable to staff that area with PTat this time. Pt denied DME needs. [id number] [facility]* Home Care - Dina Shelton RN - 08/20/2023 10:46 AM EST Spoke with pt at bedside and pt is agreeable to PT (declined/denied OT needs) at home following discharge. Pt [place] [facility] and [place] was sent. She stated if they are unable to accept, she'll be happy with first accepting agency. [facility] is unable to staff that area with PTat this time. Pt denied DME needs. [facility] [id number] Note* Home Care - Dina Shelton RN - 08/20/2023 9:29 AM EST Table Runner following case for Discharge Needs. [facility] CenterRnbdve77-97-2763 Note* Home Care - Dina Shelton RN - 08/20/2023 9:29 AM EST Table Runner following case for Discharge Needs. [facility] [id number] Consult note* Wilver De La Cruz MD [...] Arthritis Asthma COPD (chronic obstructive pulmonary disease) ([facility]) Past Surgical History: Past Surgical [...] Shon Cabral Mobile Relation: Nephew Preferred language: Egyptian Peripheral Equipment Operator needed? No Wilver De La Cruz MD Division of Hospitalist Medicine Inpatient Medical Services/[facility] [place] Phone: 1([phone]) 149-695702-07-2024 Consult note* Wilver De La Cruz MD - 08/19/2023 8:06 PM ESTAssociated Order(s): IP CONSULT TO HOSPITALIST Images from the original note were not included. Hospital Medicine Consult Patient - Violetta Linder, Age - 63 y.o. - 1960 Room Number - [id number] Consulting - Agatha Alejo MD [id number] Date of Admission - 08/19/2023 9:37 AM Hospital Day - 0 Reason for Consult: Medical Management HISTORY OF PRESENT ILLNESS: Violetta is a 63 y.o. female pmhx below POD #0 Lumbar laminectomy and decompression. Per Orthopedic specialty documentation no intraoperative complication or concern reported. [facility] [place] consulted for Medical Management. Pt Hx significant [...] Contact: MishaShon Mobile Relation: Nephew Preferred language: Egyptian Peripheral Equipment Operator needed? No Wilver De La Cruz MD Division of Hospitalist Medicine Inpatient Medical Services/[facility] [place] documented in this [facility]02-07-2024 Plan of care note* Care Plan [...] Recommendations to address these barriers include . [facility] [id number] NoteDischarge Summary Violetta Linder : 1960 ADMIT [...] Breztri Aerosphere 160-9-4.8 MCG/ACT aerosol Generic drug: Xdjwxjn-Biolklicehh-Acwnqfcawb D3-1000 PO Diclofenac Sodium 1 % gel Commonly known as: Voltaren varenicline 1 MG tablet Commonly known as: Chantix DIET: No diet orders on file ACTIVITY: No restriction. COMPLEXITY OF FOLLOW UP: [x] Moderate Complexity: follow up within 7-14 calendar days (86147) [] Severe Complexity: follow up within 7 calendar days (80625) FOLLOW UP TESTING, PENDING RESULTS OR REFERRALS AT TRANSITIONAL CARE VISIT: [] Yes [x] No PENDING STUDIES: None DISPOSITION: Home FACILITY/HOME CARE AGENCY NAME: N/a Follow up with Agatha Alejo MD [address] [facility] [address] Schedule an appointment as soon as possible [...] 14:51pm SIGNED: Candelario Kaminski MD 08/19/2023, 2:11 [facility]02-07-2024 Note* Perioperative Nursing Note - Renae Lerner RN - 08/19/2023 4:00 PM EST Assisted pt to turn onto left side [facility]02-07-2024 Note* Perioperative Nursing Note - Renae Lerner RN - 08/19/2023 4:00 PM EST Assisted pt to turn onto left side [facility]02-07-2024 NotePatient: Violetta Linder Procedure Summary Date: 08/19/23 Room / Location: [address] Operating Room Anesthesia Start: 1224 Anesthesia [...] discharged once all PACU criteria has been met.[facility] [id number] NotePatient: Violetta Linder Procedure Summary Date: 08/19/23 Room / Location: [address] Operating Room Anesthesia Start: 1224 Anesthesia [...] factors for PONV (4556F) Patient received at [facility] 2 prophylactic Rx PONV anti-emtic agents [...] of surgery or procedure by , EMMA sample processor proxy staff ([id number]) I completed my handoff to the receiving clinician during which we: 1. Identified the patient 2. Identified the responsible provider 3. Reviewed the pertinent medical history 4. Discussed the surgical course 5. Reviewed intra-op anesthesia management and issues during anesthesia 6. Set expectations for post-procedure period 7. Allowed opportunity for questions and acknowledgement of understanding.[facility] [id number] NoteAirway Date/Time: 08/19/2023 12:49 PM Urgency: scheduled General Information and Staff Patient location during procedure: Procedural Resident/CAPACITOR TESTER: JANI Trinidad CRNA Performed: CAPACITOR TESTER Performed by: JANI Trinidad CRNA Authorized by: JANI Trinidad CRNA Indications and Patient Condition Indications for airway management: anesthesia and airway protection Sedation level: Asleep Preoxygenated: yes Patient position: sniffing Mask difficulty assessment: 1 - vent by mask Final Airway Details Final airway type: endotracheal airway Successful airway: ETT Cuffed: yes Successful intubation technique: video laryngoscopy Endotracheal tube insertion site: oral Blade: Ward scope Blade size: #3 ETT size (mm): 7.0 Cormack-Lehane Classification: grade IIa - partial view of glottis Placement verified by: chest auscultation and capnometry Measured from: lips ETT to lips (cm): 20 Number of attempts at approach: [address] [place], [place] 7605202-07-2024 Note* Perioperative Nursing Note - Renae Lerner RN - 08/19/2023 3:10 PM EST Called for family to come back to see pt per pt request [address]Voeope36-50-3635 Note* Perioperative Nursing Note - Renae Lerner RN - 08/19/2023 3:10 PM EST Called for family to come back to see pt per pt request [id number] Note* Perioperative Nursing Note - Renae Lerner RN - 08/19/2023 3:02 PM EST Called and provided update to family listed in chart for this visit [facility] [id number] Note* Perioperative Nursing Note - Renae Lerner RN - 08/19/2023 3:02 PM EST Called and provided update to family listed in chart for this visit [id number] Note* Perioperative Nursing Note - Renae Lerner RN - 08/19/2023 2:32 PM EST Assisted pt to reposition in bed [id number] Note* Perioperative Nursing Note - Renae Lerner RN - 08/19/2023 2:32 PM EST Assisted pt to reposition in bed [facility] CenterYlykhv02-52-9176 Hospital Discharge instructions* Discharge Instructions* Candelario Kaminski [...] Shon Cabral Mobile Relation: Nephew Preferred language: Egyptian Peripheral Equipment Operator needed? No Past Surgical History: Past Surgical [...] 3.5 oz) Mental Status: {MEGHANA Patient Mental Status:93366} IV Access: {MEGHANA IV Access:62265} Nursing Mobility/ADLs: Walking {JULIANE ADL:::Independent} Transfer {JULIANE ADL:::Independent} Bathing {JULIANE ADL:::Independent} Dressing {JULIANE ADL:::Independent} Toileting {JULIANE ADL:::Independent} Feeding {JULIANE ADL:::Independent} Line Decorator {JULIANE ADL:::Independent} Med Delivery {yes/no:52928} Wound Care Documentation and Therapy: Wound/Incision 08/19/23 Incision Back Lower;Midline (Active) Site Assessment Unable to assess 08/20/23829 Odor None 08/19/232144 Drainage Amount None 08/19/232144 Primary Dressing ABD 08/20/23829 Dressing Status Clean, dry & intact 08/20/23829 Number of days: 1 Elimination: Continence: Bowel: {yes/no:48400} Bladder: {yes/no:81644} Urinary Catheter: {MEGHANA Urinary Catheter:91649} Colostomy/Ileostomy/Ileal Conduit: {YES / NO:30425} Date of Last BM: Intake/Output Summary (Last 24 hours) at 08/20/2023 1627 Last data filed at 08/20/2023 1057 Gross per 24 hour Intake 1735 ml Output -- Net 1735 ml I/O last 3 completed shifts: In: 1500 (21.6 mL/kg) [P.O.:800; I.V.:700 (10.1 mL/kg)] Out: 25 (0.4 mL/kg) [Blood:25] Weight: 69.5 kg Safety Concerns: {MEGHANA Safety Concerns:09527} Impairments/Disabilities: {MEGHANA Impairments/Disabilities:14317} Nutrition Therapy: Current Nutrition Therapy: {MEGHANA Diet List:96733} Routes of Feeding: {routes of feedin} Liquids: {liquid consistency:81846} Daily Fluid Restriction: {daily fluid restriction:98583} Last Modified Barium Swallow with Video (Video Swallowing Test): {done not done:67329} Treatments at the Time of Hospital Discharge: Respiratory Treatments: Oxygen Therapy: {Therapy; copd oxygen:62092} Ventilator: {MEGHANA Ventilator:72584} Rehab Therapies: {GEN THERAPY DISCIPLINE SCAL:3124689} Weight Bearing Status/Restrictions: {POD WEIGHT BEARIN} Other Medical Equipment (for information only, NOT a DME order): {Assistive Devices DME:75215} Other Treatments: Patient's personal belongings (please select all that are sent with patient): {MEGHANA Patient Belongings:76536} RN SIGNATURE: {E-signature:91995} CASE MANAGEMENT/SOCIAL WORK SECTION Inpatient Status Date: Readmission Risk Assessment Score: @READMISSIONRISKDETAILS@ Discharging to Facility/ Agency Home Health Services [facility] Dialysis Facility (if applicable) Name: Address: Dialysis Schedule: Phone: Fax: Loan Documents Closer/History Tutor signature: {E-signature:00576} PHYSICIAN SECTION Prognosis: {Rehab Prognosis:13048} Condition at Discharge: {Patient Condition:36113} Rehab Potential (if transferring to Rehab): {Rehab Prognosis:70877} Recommended Labs or Other Treatments After Discharge: Physician Certification: I certify the above information and transfer of Violetta Linder is necessary for the continuing treatment of the diagnosis listed and that she requires {MEGHANA Level of Care:71492} for {greater less than:12841} 30 days. Update Admission H&P: {MEGHANA Changes in H&P:77982} PHYSICIAN SIGNATURE: {E-signature:53729} documented in [facility]01-31-2024 NotePatient: Violetta Linder Procedure Information Date/Time: 08/19/23 1100 Procedures: MICRODISCECTOMY, FORAMINOTOMY LUMBAR 3-4, LUMBAR 4-5 RIGHT (Right: Spine Lumbar) POSTERIOR LUMBAR LAMINECTOMY FACETECTOMY FORAMINOTOMY AND DECOMPRESSION (Right: Spine Lumbar) Location: [address] Operating Room Surgeons: Agatha Alejo MD [...] history or previous problems with anesthesia no(Per SEWING MACHINE REPAIRER HELPER H&H pending - completed prior to PAT at [facility] ) The patient is a current smoker. [...] Sinus rhythm Right axis deviation Consider anteroseptal [facility]01-31-2024 NoteComprehensive Pre Surgical History and Physical ? Name: Violetta Linder : 1960 (Age-63 y.o.) Date of Service: Pt seen/examined on 08/12/2023 Procedure Information Date/Time: 08/19/23 1100 Procedures: MICRODISCECTOMY, FORAMINOTOMY LUMBAR 3-4, LUMBAR 4-5 RIGHT (Right: Spine Lumbar) POSTERIOR LUMBAR LAMINECTOMY FACETECTOMY FORAMINOTOMY AND DECOMPRESSION (Right: Spine Lumbar) Location: [facility] OR [address] [place] [address] Operating Room Surgeons: Agatha Alejo MD Chief [...] pending - completed prior to PAT at [facility] 3) Sinus allergies -not currently 4) Depression/Anxiety [...] 3-4, LUMBAR 4-5 RIGHT (Right: Spine Lumbar) [83597 CPT(R)] POSTERIOR LUMBAR LAMINECTOMY FACETECTOMY FORAMINOTOMY AND DECOMPRESSION (Right: Spine Lumbar) [42590 CPT(R)] Anesthesia type: General No notes from surgeons office Dr Alejo in [facility] or care everywhere. ? Denies history of [place], CAD, CHF, TIA, CVA, DVT, PE Past Medical History: Past Medical History: No date: Arthritis No date: Asthma No date: COPD (chronic obstructive pulmonary disease) ([facility]) Past Surgical History: Past Surgical [...] She is obese. HENT: (more content not included)...[facility] [id number] Note Comprehensive Pre Surgical History and Physical ? Name: Violetta Linder : 1960 (Age-63 y.o.) Date of Service: Pt seen/examined on 08/12/2023 Procedure Information Date/Time: 08/19/23 1100 Procedures: MICRODISCECTOMY, FORAMINOTOMY LUMBAR 3-4, LUMBAR 4-5 RIGHT (Right: Spine Lumbar) POSTERIOR LUMBAR LAMINECTOMY FACETECTOMY FORAMINOTOMY AND DECOMPRESSION (Right: Spine Lumbar) Location: [address] Operating Room Surgeons: Agatha Alejo MD [...] pending - completed prior to PAT at [facility] 3) Sinus allergies -not currently 4) Depression/Anxiety [...] who we are asked to see/evaluate by [place] [address] for pre-operative evaluation prior to . MICRODISCECTOMY, FORAMINOTOMY LUMBAR 3-4, LUMBAR 4-5 RIGHT (Right: Spine Lumbar) [65641 CPT(R)] POSTERIOR LUMBAR LAMINECTOMY FACETECTOMY FORAMINOTOMY AND DECOMPRESSION (Right: Spine Lumbar) [31550 CPT(R)] Anesthesia type: General No notes from surgeons office Dr Alejo in [facility] or care everywhere. ? Denies history of [place], CAD, CHF, TIA, CVA, DVT, PE Past Medical History: Past Medical History: No date: Arthritis No date: Asthma No date: COPD (chronic obstructive pulmonary disease) ([facility]) Past Surgical History: Past Surgical [...] and physical note* Mariam Wagoner, JANI - MANAGER CONCRETE - 08/12/2023 1:30 PM EST Images from the original note were not included. Comprehensive Pre Surgical History and Physical ? Name: Violetta Linder : 1960 (Age-63 y.o.) Date of Service: Pt seen/examined on 08/12/2023 Procedure Information Date/Time: 08/19/23 1100 Procedures: MICRODISCECTOMY, FORAMINOTOMY LUMBAR 3-4, LUMBAR 4-5 RIGHT (Right: Spine Lumbar) POSTERIOR LUMBAR LAMINECTOMY FACETECTOMY FORAMINOTOMY AND DECOMPRESSION (Right: Spine Lumbar) Location: [address] Operating Room Surgeons: Agatha Alejo MD [...] pending - completed prior to PAT at [facility] 3) Sinus allergies -not currently 4) Depression/Anxiety [...] who we are asked to see/evaluate by [facility] 03 for pre-operative evaluation prior to. MICRODISCECTOMY, FORAMINOTOMY LUMBAR 3-4, LUMBAR 4-5 RIGHT (Right: Spine Lumbar) [14425 CPT(R)] POSTERIOR LUMBAR LAMINECTOMY FACETECTOMY FORAMINOTOMY AND DECOMPRESSION (Right: Spine Lumbar) [51043 CPT(R)] Anesthesia type: General No notes from surgeons office Dr Alejo in [facility] or care everywhere. ? Denies history of WA, CAD, CHF, TIA, CVA, DVT, PE Past [...] QT Interval 397 QTC Interval 424 P [place] 86 QRS [place] 99 T Wave [place] 73 VT Interval 130 Impression Sinus rhythm Right axis deviation Consider anteroseptal infarct ECHO and EF:None on file No components found for: LVEF, LVEFMODE METS >4 Electronically signed by: JANI Mitchell CNP Date: 08/12/2023 at 2:[address] Work Phone: [phone]) 582-788201-31-2024 History and physical note* JANI Mitchell CNP [...] FORAMINOTOMY AND DECOMPRESSION (Right: Spine Lumbar) Location: [facility] OR [address] [place] [address] Operating Room Surgeons: Agatha Alejo MD Chief [...] pending - completed prior to PAT at [facility] 3) Sinus allergies -not currently 4) Depression/Anxiety [...] who we are asked to see/evaluate by [facility] PAT 03 for pre-operative evaluation prior to. MICRODISCECTOMY, FORAMINOTOMY LUMBAR 3-4, LUMBAR 4-5 RIGHT (Right: Spine Lumbar) [94428 CPT(R)] POSTERIOR LUMBAR LAMINECTOMY FACETECTOMY FORAMINOTOMY AND DECOMPRESSION (Right: Spine Lumbar) [37205 CPT(R)] Anesthesia type: General No notes from surgeons office Dr Alejo in [facility] or care everywhere. ? Denies history of [place], CAD, CHF, TIA, CVA, DVT, PE Past [...] QT Interval 397 QTC Interval 424 P [place] 86 QRS [place] 99 T Wave [place] 73 VT Interval 130 Impression Sinus rhythm Right axis deviation Consider anteroseptal infarct ECHO and EF:None on file No components found for: LVEF, LVEFMODE METS >4 Electronically signed by: Mariam Wagoner APRN - MANAGER CONCRETE Date: 08/12/2023 at 2:09 PM documented in this [facility]09[facility]23[facility] NAME ACCOUNT SEX AGE ADMIT DISCHARGE PT MED. RECORD# NUMBER DATE DATE TYPE NIYA [id number] F 63 03/30/23 03/31/23 2 VIOLETTA [id number] ROOM: 302MO DATE OF : 1960 ATTENDING [...] Stacy Vale MD 03/31/23 12:42 JOB #: [id number] Transcribed By: am 03/31/23 14:44 Electronically signed by: E-Sign: STACY VALE MD 04/04/23 11:53 Page 1 of 1 NIYA, VIOLETTA [place] [facility] ACCOUNT SEX AGE ADMIT DISCHARGE PT MED. RECORD# NUMBER DATE DATE TYPE NIYA [id number] F 63 03/30/23 03/31/23 2 VIOLETTA [id number] ROOM: 302MO DATE OF : 62 DICTATING [...] does follow with routine screening by her printing gray cloth tender. SOCIAL HISTORY: The patient continues to smoke. [...] Stacy Vale MD 03/31/23 12:39 JOB #: [id number] Transcribed By: brigid 03/31/23 13:47 Electronically signed by: E-Sign: STACY VALE MD 04/04/23 11:53 Update to H&P: [ ] No changes: I have examined the patient and reviewed the H&P and there are no changes. [ ] As previously dictated with the following changes: ____ (more content not included)...[place]06-16-2023 History and physical note Author Dr. Rojas [facility] December 26, 2022 11:25am Note Date/Time December 26, 2022 10:5 3am [facility] Medical Records Department [address] [place] [address] History & Physical Exam 12/26/22 1045 MR#: [id number] Acct: [id number] Name: VIOLETTA LINDER Rep #:[id number] : 1960 62 From: Kelly Nino SEWING MACHINE REPAIRER HELPER-C PCP: Dr. 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 Cervical radiculopathy COPD (chronic obstructive [...] Rojas MD; Dr. Edyta Nichole DO~ Signed [facility] Work Phone: 1(691) 128-344202-09-2023 Procedure [facility] 07[facility]24-2022 [facility] Diagnosis Onset Date Resolution Status Nicotine dependence acute Asthma-COPD overlap syndrome chronic Smoking chronic Stage 3 severe COPD by GOLD classification [facility] Work Phone: Evaluation note* Diagnosis Onset Date Resolution Status Smoking greater than 30 pack years acute Asthma-COPD overlap syndrome [facility] Work Phone: evaluation note* Diagnosis Onset Date Resolution Status Smoking greater than 30 pack years acute 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 Stage 3 severe COPD by GOLD classification [facility] Work Phone: Evaluation note* Diagnosis Onset Date Resolution Status Smoking greater than 30 pack years acute 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 Stage 3 severe COPD by GOLD classification chronic Shortness of breath acute Smoking greater than 30 pack years acute Stage 3 severe COPD by GOLD classification [facility] Work Phone: Evaluation note* Diagnosis Onset Date Resolution Status Asthma-COPD overlap syndrome chronic Stage 3 severe COPD by GOLD classification chronic Shortness of breath acute Smoking greater than 30 pack years acute Stage 3 severe COPD by GOLD classification chronic Shortness of breath acute [facility] Work Phone: Evaluation note* Diagnosis Onset Date Resolution Status Shortness of breath acute Smoking greater than 30 pack years acute Stage 3 severe COPD by GOLD classification chronic Shortness of breath acute [facility] Work Phone: Evaluation note* Diagnosis Spinal stenosis- Primary Spinal stenosis, unspecified region other than cervical Spinal stenosis Spinal stenosis, unspecified region other than cervical Lumbar radiculopathy Thoracic or lumbosacral neuritis or radiculitis, unspecified documented in this [facility] noteNo assessment information availableWUniversity Hospitals Conneaut [facility] Center Work Phone: Evaluation note* Diagnosis Onset Date Resolution Status Admit Date Asthma-COPD overlap syndrome chronic December 27, 2024 9:14am Smoking greater than 30 pack years chronic December 27, 2024 9:14am [facility] Work Phone: Hospital Discharge instructionsAmbulatory Orders* Cardiology Location: None Selected [facility] Work Phone: Reason for referral (narrative)No reason for referral information availableWUniversity Hospitals Conneaut Medical Center Work Phone: Summary Purpose Family History Relationship [...] November 15, 2018 5: 50pm Power of Microbiology Laboratory Manager Yes November 15, 2018 5:50pm Advance Directive Response Recorded Date/ Time Advance Directives No April 14, 2013 7:52am Living Will Yes November 15, 2018 6: 50pm Power of Microbiology Laboratory Manager Yes November 15, 2018 6:50pm Advance Directive Response Recorded Date/ Time Advance Directives No January 01 8:18am Living Will No January 01, 2023 8:18am Power of Microbiology Laboratory Manager No January 01 8:18am Advance Directive Response [...] Smoking greater than 30 pack years Septe [facility] 2024 12:37pm Additional Source Comments INFORMATION SOURCE (unrecogn ized section and content) DATE CREATED AUTHOR 01/05/2018 [facility] DATE CREATED AUTHOR AUTHOR'S ORGANIZ ATION 12/06/2020 [facility] DATE CREATED AUTHOR AUTHOR'S ORGANIZ ATION 03/08/2022 [facility] ([place]) DATE CREATED AUTHOR AUTHOR'S ORGANIZ ATION 09/14/2023 [facility] DATE CREATED AUTHOR AUTHOR'S ORGANIZ ATION 10/16/2023 [facility] DATE CREATED AUTHOR AUTHOR'S ORGANIZ ATION 03/29/2025 [facility] Goals (unrecognized section and content) Goals may [...] Provider, Referring P rovider Active Carol Casillas SEWING MACHINE REPAIRER HELPER, SEWING MACHINE REPAIRER HELPER-C Attending Provider Active Team Status: Active Member Role Status Dates Dr. Edyta Nichole DO Primary Care Provider Active Carol Casillas SEWING MACHINE REPAIRER HELPER, SEWING MACHINE REPAIRER HELPER-C Other Provider Active Dr. Santana Burgos DO Attending Provider Active Team Status: Inactive Member Role Status Dates Dr. Edyta Nichole DO Primary Care Provider Active Carol Casillas SEWING MACHINE REPAIRER HELPER, SEWING MACHINE REPAIRER HELPER-C Attending Provider, Referrin g Provider Active Team Status: Inactive Member Role Status Dates Dr. Edyta Nichole DO Primary Care Provider Active Carol Casillas SEWING MACHINE REPAIRER HELPER, SEWING MACHINE REPAIRER HELPER-C Attending Provider Active Team Status: Inactive Member Role Status Dates Dr. Edyta Nichole DO Primary Care Provider, Referring P rovider Active Dr. Leighton Ruiz MD Attending Provider Active Team Status: Active Member Role Status Dates Dr. Edyta Nichole DO Primary Care Provider Active Carol Casillas SEWING MACHINE REPAIRER HELPER, SEWING MACHINE REPAIRER HELPER-C Referring Provider, Other Pr ovider Active Dr. [...] MD Other Provider Active Kelly Mitchell NP, SEWING MACHINE REPAIRER HELPER-C Attending Provider Active Plant Culture Manager Relationship Specialty Start Date End Date Alberto Tong PA [address] [place] [id number] PCP - General Family Medicine 08/06/23 08/19/23 Edyta Nichole [address] [facility] [place] [id number] PCP - General Family Medicine 08/20/23 Team [...] Spinal stenosis of lumbar region [M48.061] Procedures VT LAMNOTMY INCL W/DCMPRSN NRV ROOT 1 INTRSPC LUMBR VT CURTIS FACETECTOMY & FORAMOTOMY 1 VRT SGM LUMBAR MICRODISCECTOMY, FORAMINOTOMY LUMBAR 3-4, LUMBAR 4-5 RIGHT POSTERIOR LUMBAR LAMINECTOMY FACETECTOMY FORAMINOTOMY AND DECOMPRESSION Agatha Alejo MD [address] [phone] [place] [address] [place] [address] Referral ID Status Reason Start Date Expiration Date Visits Re quested Visits Authorized [id number] 1 1 Scheduled Active and Recently Administ [...] - Provider: Jean Marie Fontanez APRN - CAPACITOR TESTER - Comment: Switch to gravity)1224 (Restarted - [...] and physical. 0959 (Given - Provider: Mathew Cailx RN) gelatin absorbable (Gelfoam) sponge (CANCELED) As [...] sedation for opioid reversal - MUST notify lunch wagon operator provider immediately after first dose, may give [...] BE BASED ON THE PRIMARY CLINICAL RECORDS. [facility]. provides no warranty or guarantee of the accuracy or completeness of information in this document.
== END | disposition home or self-care (01) ==
LOC: PSN 09:42
PROVIDERS: PCP Family Medicine; Referring Provider Nurse Practitioner Family; Visit Provider Nurse Practitioner Family
DX: F17.210 Nicotine dependence, cigarettes, uncomplicated (principal)
CPT/HCPCS: 94060; 94726; 94729